=== PATIENT | female | born 1955 | race Caucasian/White ===

== ENCOUNTER 2023-02-03 07:03 | Outpatient (OUT) | payer MEDICARE, MEDICAID, SELFPAY ==
--- NOTE | 2023-02-03 08:15 | CA_ITS ---
Patient: ORVILLE JASSO Exam Date: 02/03/2023 : 1955 Gender:F Ordering : DUSTY MOODY Admission #: [id number] Family : Order #: [id number] CLICK HERE TO VIEW EXAM ECHOCARDIOGRAM REPORT PROCEDURE: CA ECHO DOPPLER COMPLETE INDICATIONS: Acute on chronic systolic heart failure, hypertension, diabetes, smoker, recent Covid COMPARISON: None. DESCRIPTION: COMPLETE ECHOCARDIOGRAM Real-time transthoracic echocardiography with 2D, M-mode, spectral and color flow Doppler performed. QUALITY: Technical quality was good. LEFT VENTRICLE: Normal chamber size. Thickened septal wall. LV EF: Global left ventricular systolic function is normal; visually estimated ejection fraction is 60 to 65%. No significant wall motion abnormalities. DIASTOLIC: Diastolic function is indeterminate. ATRIAL SEPTUM: Visually appears intact. LEFT ATRIUM: Severe dilatation. RIGHT ATRIUM: Moderate dilatation. RIGHT VENTRICLE: Appears enlarged. Systolic function is preserved. TRICUSPID VALVE: Normal mobility and thickness. No stenosis with trivial regurgitation. Doppler studies reveal severely (>60) elevated right sided pressures. RVSP 63 mmHg MITRAL VALVE: Mildly thickened with normal mobility. No evidence of mitral valve stenosis. There is no mitral annular calcification. Trivial mitral regurgitation. AORTIC VALVE: Normal trileaflet appearance. No visible sclerosis. Normal leaflet mobility. No evidence of aortic valve stenosis. No aortic regurgitation. AORTIC ROOT: Normal diameter and appearance. PULMONIC VALVE: Normal thickness and mobility. No stenosis. No regurgitation. PERICARDIUM: No evidence of pericardial effusion. IVC: Collapses with inspirations. IVC is dilated (2.2 cm). CONCLUSION: 1. Global left ventricular systolic function is normal; visually estimated ejection fraction is 60 to 65% 2. Diastolic function is indeterminate 3. Biatrial enlargement 4. Right ventricle appears enlarged with preserved systolic function 5. Severely elevated right ventricular systolic pressure; RVSP 63 mmHg 6. No significant valvular abnormalities Adult Echocardiography Procedure Report Left Ventricle LVEDD (3.7 - 5.6 cm): 4.11 cm LVESD (2.2 - 4.0 cm): 2.96 cm LVIVS thickness (0.6 - 1.2 cm): 1.35 cm LVPW thickness (0.5 - 1.0 cm): 1.06 cm e': 0.14 m/s E - e': 4.35 LVOT Max Gradient: 4.29 mm[Hg], 4.14 mm[Hg] LVOT Area (cm2): 1.03 m/s Peak Velocity (LVOT): 1.04 m/s, 1.02 m/s Mean Velocity (LVOT): 0.72 m/s LVOT Diameter 2.24 cm Left Atrium LA Volume Index (2D A2C): 56.40 ml/m2 Left Atrium Systolic Dimension: 2.71 cm Mitral Valve MV E to A Ratio: 0.77 Mitral Valve A-Wave Peak Velocity: 0.76 m/s Mitral Valve E-Wave Peak Velocity: 0.59 m/s Right Ventricle Aorta AO Root Diam: 3.45 cm Aortic Valve AoV Area (Peak Jack): 2.75 cm2, 2.77 cm2 AoV Area (VTI): 2.59 cm2, 2.64 cm2 Peak Velocity(Antegrade Flow): 1.47 m/s Peak Gradient(Antegrade Flow): 8.66 mm[Hg] Mean Velocity(Antegrade Flow): 1.01 m/s Mean Gradient(Antegrade Flow): 4.69 mm[Hg] Velocity Time Integral: 30.48 cm Tricuspid Valve Peak Velocity (Regurgitant Flow): 3.70 m/s Pulmonic Valve Peak Velocity: 1.07 m/s Peak Gradient: 5.86 mm[Hg], 3.48 mm[Hg] Right Atrium Right Atrium Systolic Pressure: 41.27 ml, 41.27 ml Dictated by: Jong Contreras M.D. on 02/03/2023 at 13:01 Approved by: Jong Contreras M.D. on 02/03/2023 at 13:06
== END 2023-02-03 07:04 | disposition home or self-care (01) ==
LOC: CARD 07:11
PROVIDERS: PCP Family Medicine; Visit Provider Internal Medicine Cardiovascular Disease
DX: I50.23 Acute on chronic systolic (congestive) heart failure (principal)
CPT/HCPCS: 93306

== ENCOUNTER 2023-04-14 19:30 | Emergency (ER) | payer MEDICARE, MEDICAID, SELFPAY ==
[2023-04-14] VITALS (34 sets, daily range): BP systolic 80–127; BP diastolic 48–79; PULSE 93–105; RESP 9–25; TEMP 36.5; O2SAT 94–100; BMI 15.3
--- OUTSIDE RECORDS SUMMARY | 2023-04-14 19:41 | XMS_ITS | CCD ---
Author Name Unknown Address [address] [place] [address] Organization [facility] Care Team Providers Care Treater Helper Name Role Phone Sandra Raya Primary Care Provider Charly Estevez Unavailable [facility], [facility] Unavailable Unavailable DOMINGUEZTRAVIS PETERSON Admitting Unavailable DOMINGUEZTRAVIS PETERSON Attending Unavailable DOMINGUEZ, TRAVIS Admitting Unavailable DOMINGUEZTRVAIS Attending Unavailable DOMINGUEZ, TRAVIS Admitting Unavailable DOMINGUEZTRAVIS Attending Unavailable NO, PHYSICIAN Primary Care Unavailable ASHIA AGUIRRE Attending Unavailable No, Physician Primary Care Provider Unavailabl e LESVIA SALCIDO Referring Unavaila ble NO, PHYSICIAN Primary Care Unavailable ASHIA BRONSON Consulting Unavailable ADILENE CALIX Admitting Unavailabl e BILLY MOODY Attending Unavailable SUSAN THURSTON Consulting Unavaila ble NO, PHYSICIAN Primary Care Unavailable LESVIA SALCIDO Attending Unavaila ble LESVIA SALCIDO Admitting Unavaila ble ZACH MONTELONGO Attending Unavailable NO, PHYSICIAN Primary Care Unavailable No, Physician Primary Care Provider Unavailabl e Unavailable Primary Care Provider Unavailabl e Maryjane Momin Primary Care Provider [phone] Rc Saravia Unavailable [phone] Maryjane Momin MD Primary Care Provider Rc Saravia Unavailable [phone] Karel Moralez II Unavailable [phone] DO Marcelo Ann Primary Care Provider [phone] YuvalDO Sharath ramesh Admit Provider MD Diamond Angeles Other Provider MD Kadeem Saenz Attending Provider MD Karel Moralez II Attending Provider [phone] CLIFTON, DR POPE Admitting Unavailable FANNING, DR POPE Attending Unavailable ALFREDA, STEVEN Attending Unavailable FURLONG, DR MARCELO Meyers Primary Care Unavailable ALFREDA, STEVEN Admitting Unavailable ZIEBER, DR RORY Huggins Consulting Unavailable PAY, DR CRUZ Consulting Unavailable ALFREDA, STEVEN Consulting Unavailable FREDERICK, NASREEN Consulting Unavailable FURLONG, DR MARCELO Meyers Primary Care Unavailable FANNING, DR POPE Admitting Unavailable FANNING, DR POPE Consulting Unavailable FANNING, DR POPE Attending Unavailable FURLONG, DR MARCELO Meyers Attending Unavailable FURLONG, DR MARCELO Meyers Primary Care Unavailable FURLONG, DR MARCELO Meyers Admitting Unavailable FANNING, DR POPE Attending Unavailable FANNING, DR POPE Admitting Unavailable MANJIT, DR Keo Huggins Attending Unavailable FURLONG, DR MARCELO Meyers Primary Care Unavailable MANJIT, DR Keo Huggins Admitting Unavailable FURLONG, DR MARCELO Meyers Attending Unavailable FURLONG, DR MARCELO Meyers Admitting Unavailable FURLONG, DR MARCELO Meyers Consulting Unavailable FURLONG, DR MARCELO Meyers Attending Unavailable FURLONG, DR MARCELO Meyers Primary Care Unavailable FURLONG, DR MARCELO Meyers Consulting Unavailable FURLONG, DR MARCELO Meyers Admitting Unavailable FURLONG, DR MARCELO Meyers Attending Unavailable FURLONG, DR MARCELO Meyers Primary Care Unavailable FURLONG, DR MARCELO Meyers Consulting Unavailable FURLONG, DR MARCELO Meyers Admitting Unavailable FURLONG, DR MARCELO Meyers Primary Care Unavailable FURLONG, DR MARCELO Meyers Consulting Unavailable FURLONG, DR MARCELO Meyers Admitting Unavailable FURLONG, DR MARCELO Meyers Attending Unavailable FURLONG, DR MARCELO Meyers Primary Care Unavailable FURLONG, DR MARCELO Meyers Consulting Unavailable FURLONG, DR MARCELO Meyers Attending Unavailable FURLONG, DR MARCELO Meyers Admitting Unavailable FURLONG, DR MARCELO Meyers Attending Unavailable FURLONG, DR MARCELO Meyres Admitting Unavailable FURLONG, DR MARCELO Meyers Consulting Unavailable SHERRI LEA Attending Unavailable FURLONG, DR MARCELO Meyers Primary Care Unavailable SAMSA, SHERRI Admitting Unavailable HOANG, DR OLGA Brown Consulting Unavailable ZIEBER, DR RORY Huggins Consulting Unavailable SAMSA, SHERRI Consulting Unavailable ROSS, GIL GARCIA Consulting Unavailable DANA, CHARISSE Consulting Unavailable FANNING, DR POPE Admitting Unavailable FANNING, DR POPE Consulting Unavailable FANNING, DR POPE Attending Unavailable REQUEST, DR DEBRA LISTED Primary Care Unavaila ble FURLONG, DR MARCELO Meyers Primary Care Unavailable FANNING, DR POPE Consulting Unavailable FANNING, DR POPE Attending Unavailable FANNING, DR POPE Admitting Unavailable FURLONG, DR MARCELO Meyers Primary Care Unavailable FANNING, DR POPE Attending Unavailable FANNING, DR POPE Admitting Unavailable Clifton, MD Pope Attending Provider Unavailable MD Rc Saravia Referring Provider [phone] Maryjane Momin MD Primary Care Provider [phone] MARYJANE MOMIN Primary Care Unavailable WILBER RILEY Admitting Unavailable WILBER RILEY Attending Unavailable Arturclarisse, Marcelo Primary Care Provider [phone] MD Rc Saravia Referring Provider Dixon HEATON, DO Xander Laird Attending Provider Karel Moralez II Admitting Unavailabl e Kirt HEATON, Karel Ramesh Attending Unavailabl e Furlong, Marcelo Primary Care Unavailable Karel Moralez II Admitting Unavailabl e Kirt HEATON, Karel Ramesh Attending Unavailabl e Furlong, Marcelo Primary Care Unavailable Xander Metcalf II Admitting Unavaila ble Dixon HEATON, Xander Laird Attending Unavaila Rc Mary Referring Unavailabl e Furlong, Marcelo Primary Care Unavailable Karel Moralez II Admitting Unavailabl e Atlantic II, Karel Ramesh Attending Unavailabl e Furlong, Marcelo Primary Care Unavailable DUSTY MOODY Attending Unavailable SHRUTHI AQUINO Attending Unavailable Unavailable Unavailable Unavailable Allergies Allergy Classification Reported Allergen(s) Allergy Type Date of Onset Reaction(s) Facility (20 sources) buPROPion; Translations: [Unknown] Drug Allergy 9 Other (See Comments) [facility] (1 source) buPROPion Drug Allergy 1 [facility] (1 source) buPROPion Drug Allergy 2 [facility] Medications Current Medications Medication Drug Class(es) Dates Sig (Normalized) Sig (Original) acetaminophen 325 mg oral tablet (20 sources) Start: 08-08-2022 take 325 mg by mouth once Acetaminophen Active 325 MG PO Once August 08, 2022 12:00am Start: 07-10-2022 acetaminophen (TYLENOL) tablet 650 mg Start: 07-10-2022 acetaminophen (TYLENOL) tablet 650 mg Start: 10-15-2020 End: 01-14-2022 take 650 mg by mouth every four hours Acetaminophen Discontinued 650 MG PO Q4H October 15, 2020 12:00am January 14, 2022 11:03am Start: 07-04-2020 acetaminophen (TYLENOL) tablet 650 mg Start: 07-04-2020 acetaminophen (TYLENOL) tablet 1,000 mg Start: 10-18-2019 End: 10-26-2019 take 1 tablet by mouth every six hours as needed 650 mg, Oral, Every 6 hours PRN, mild pain, fever 100.4 F or greater, headaches, Starting Mon10/18/19 at 1331 take 2 tablets by mo coh every four hours as needed for pain acetaminophen (TYLENOL) 325 MG tablet Take 2 tablets by mouth every 4 hours as needed for Pain 0 Active take 1 tablet by jesica every four hours Tylenol 325 MG 1 tablet as needed Orally every 4 hrs Active Tylenol Active acetaminophen 325 mg / HYDROcodone bitartrate 5 mg oral tablet (4 sources) Opioid Agonist Start: 08-08-2022 take 1 tablet by mouth every six hours Hydrocodone-Acetaminophen Active 1 TAB PO Q6H August 08, 2022 12:00am Start: 07-10-2022 End: 07-16-2022 HYDROcodone-acetaminophen (N ORCO) 5-325 MG per tablet Indications: Closed fracture of left tibial plateau, initial encounter Take 2 tablets by mouth every 6 hours as needed for Pain for up to 5 days. Max Daily Amount: 8 tablets 40 tablet 0 07/11/2022 07/16/2022 Active Start: 07-10-2022 End: 07-10-2022 HYDROcodone-acetaminophen (N ORCO) 5-325 MG per tablet 1 tablet [id number] 200 actuat albuterol 0.09 mg/actuat metered dose inhaler (20 sources) beta2-Adrenergic Agonist Start: 06-04-2021 take 1 puff(s) by inhalation every four to six hours Albuterol Sulfate Active 2 PUFF INHALATION EVERY 4-6 HOURS June 04, 2021 1:00am Start: 10-26-2019 End: 11-25-2019 take 2.5 mg by inhalation every six hours as needed albuterol (PROVENTIL) 2.5 mg /3 mL (0.083 %) nebulizer solution Take 3 mL (2.5 mg total) by nebulization every 6 (six) hours as needed for wheezing . 75 mL 12 10/26/2019 Active Start: 10-18-2019 End: 10-26-2019 take 2.5 mg by inhalation every six hours as needed albuterol (PROVENTIL) 2.5 mg /3 mL (0.083 %) nebulizer solution 2.5 mg Start: 07-28-2015 take 2 puff(s) by mo uth every six hours as needed for wheezing VENTOLIN HFA 108 (90 BASE) MCG/ACT inhaler INHALE TWO PUFFS BY MOUTH EVERY 6 HOURS NEEDED FOR WHEEZING 1 each 3 07/28/2015 Active Albuterol Sulfate 108 (90 Base) MCG/ACT (3 sources) take 1 puff(s) by inhalation every four hours as needed Albuterol Sulfate 108 (90 Base) MCG/ACT 1 puff as needed Inhalation every 4 hrs Active alendronic acid 70 mg oral tablet (5 sources) Bisphosphonate Start: 01-14-2022 take 70 mg by mouth every week Alendronate Active 70 MG PO every week January 14, 2022 12:00am take 1 tablet by mouth once isai y Alendronate Sodium 70 MG 1 tablet 30 minutes before the first food, beverage or medicine of the day with plain water Orally Active B Complex - (3 sources) B Complex - as directed Orally Active b complex vitamins capsule (6 sources) take 1 capsule by mouth once daily b complex vitamins capsule Take 1 capsule by mouth daily 0 Active benzonatate 100 mg oral capsule (8 sources) Non-narcotic Antitussive Start: 2 take 100 mg by mouth three times daily Benzonatate Active 100 MG PO Three times daily June 08, 2021 1:00am Tessalon Active calcium carbonate 500 mg chewable tablet (9 sources) Start: 08-08-2022 take 1 tablet by mouth four times daily Calcium Carbonate (Tums) 200 mg calcium (500 mg) Tablet,Chewable Active 200 MG PO Four times daily August 08, 2022 12:00am Start: 06-08-2021 End: 01-14-2022 Calcium Carbonate Discontinu ed 0 .ROUTE .COMPLEX June 08, 2021 1:00am January 14, 2022 11:03am 2 tablets every 6 hourse take 1 tablet by jesica th every twenty-four hours Tums 500 MG 1 tablet Orally Once a day Active cefdinir 300 mg oral capsule (4 sources) Cephalosporin Antibacterial Start: 04-01-2019 End: 04-11-2019 take 1 capsule by mouth twice daily cefdinir (OMNICEF) 300 MG capsule Take 1 capsule by mouth two times a day for 10 days. 20 capsule 0 04/01/2019 04/11/2019 Active cefTRIAXone (ROCEPHIN) 1,000 mg in sterile water 10 mL IV syringe (1 source) Start: 07-04-2020 take 100 mg intravenous route every twenty-four hours 1,000 mg, Intravenous, EVERY 24 HOURS, First dose on 07/04/20 at 2230, Until Discontinued Administer as slow IV Push over 5 mins Re constitute 1 g vials with 9.6 mL of designated diluent to produce a 100 mg/mL solution. cefTRIAXone (ROCEPHIN) infusion (1 source) Start: 07-07-2020 End: 07-14-2020 take 1000 mg intravenous route every twenty-four hours cefTRIAXone (ROCEPHIN) infusion Indications: Acute cystitis without hematuria Infuse 1,000 mg intravenously every 24 hours for 7 days Compound per protocol Flush IV per protocol 7 g 0 07/07/2020 07/14/2020 Active celecoxib 100 mg oral capsule (5 sources) Nonsteroidal Anti-inflammatory Drug Start: 01-14-2022 take 1 capsule by mouth every twelve hours Celecoxib (Celebrex) 100 mg Capsule Active 100 MG PO Q12H January 14, 2022 12:00am take 1 capsule by mo uth every twenty-four hours CeleBREX 100 MG 1 capsule with food Orally Once a day Active cranberry preparation 500 mg oral capsule (12 sources) Non-Standardized Food Allergenic Extract, Non-Standardized Plant Allergenic Extract Start: 09-10-2018 take 1 capsule by mouth twice daily Cranberry (CRANBERRY CONCENTRATE) 500 MG CAPS capsule Indications: Recurrent UTI Take 1 capsule by mouth two times a day. 100 each 6 09/10/2018 Active diclofenac sodium 0.01 mg/mg topical gel (8 sources) Nonsteroidal Anti-inflammatory Drug Start: 06-08-2021 apply 2 g topically four times daily Diclofenac Sodium Active 2 GM TOPICAL Four times daily June 08, 2021 1:00am Diclofenac Sodiu m 1 % as directed Externally Active docusate sodium 50 mg / sennosides, alf 8.6 mg oral tablet (2 sources) Start: 10-18-2019 End: 11-25-2019 take 1 tablet by mouth twice daily senna-docusate (SENNA-S) 8.6-50 mg Take 1 (one) tablet by mouth 2 (two) times a day . 60 tablet 0 10/26/2019 11/25/2019 Active Dulaglutide (Trulicity) 4.5 mg/0.5 mL Pen Injector (6 sources) Start: 08-08-2022 Dulaglutide (T rulicity) 4.5 mg/0.5 mL Pen Injector Active 4.5 MG SUBCUT every week August 08, 2022 12:00am Start: 10-25-2021 Dulaglutide (T rulicity) 4.5 mg/0.5 mL Pen Injector Active 4.5 MG SUBCUT every week October 25, 2021 12:00am tuesdays empagliflozin 10 mg oral tablet (6 sources) Sodium-Glucose Cotransporter 2 Inhibitor Start: 01-14-2022 take 1 tablet by mouth once daily Empagliflozin (Jardiance) 10 mg Tablet Active 10 MG PO Daily January 14, 2022 12:00am Empagliflozin (J ARDIANCE PO) Take by mouth 0 Active 0.3 ml enoxaparin sodium 100 mg/ml prefilled syringe (2 sources) Low Molecular Weight Heparin Start: 07-10-2022 End: 07-26-2022 enoxaparin Sodium (LOVENOX) 30 MG/0.3ML injection Inject 0.3 mLs into the skin daily for 14 days 14 each 0 07/12/2022 07/26/2022 Active estrogens, conjugated (alf) 0.625 mg/ml vaginal cream (12 sources) Estrogen Start: 09-10-2018 conjugated estrogens (PREMARIN) vaginal cream Place 0.5 g vaginally twice a week. 42.5 g 2 09/10/2018 Active FreeStyle Abad 14 Day Conway - (3 sources) FreeStyle Abad 14 Day Conway - as directed Active glucagon (rdna) 1 mg injection (2 sources) Antihypoglycemic Agent Start: 07-10-2022 glucago n (rDNA) injection 1 mg Start: 07-06-2020 glucagon (rDNA ) injection 1 mg Glucagon Emergency (9 sources) Glucagon Emergen cy Active Glucagon Hcl (Glucagon (Hcl) Emergency Kit) 1 mg Recon Soln (5 sources) Start: 12-29-2020 Glucagon Hcl ( Glucagon (Hcl) Emergency Kit) 1 mg Recon Soln Active 1 MG SUBCUT Q20M December 29, 2020 12:00am 1000 ml glucose 100 mg/ml injection (20 sources) Start: 07-10-2022 dextrose 10 % infusion Start: 07-10-2022 dextrose bolus 10% 125 mL Start: 07-10-2022 glucose chewab le tablet 16 g Start: 12-29-2020 Dextrose (Gluc ose Gel) 40 % Gel Active 10 GM PO Q15M December 29, 2020 12:00am Start: 07-06-2020 glucose (GLUTO SE) 40 % oral gel 15 g Start: 07-06-2020 dextrose 50 % IV solution Start: 07-06-2020 dextrose 5 % s olution Glucose Active ibuprofen 600 mg oral tablet (10 sources) Nonsteroidal Anti-inflammatory Drug Start: 01-21-2019 take 1 tablet by mouth three times daily at mealtime ibuprofen (ADVIL,MOTRIN) 600 MG tablet Take 1 tablet by mouth 3 times daily (with meals). 30 tablet 1 01/21/2019 Active ibuprofen/diphe nhydramine cit (ADVIL PM ORAL) (3 sources) ibuprofen/diphen hyd ramine cit (ADVIL PM ORAL) Take by mouth . 0 Active ibuprofen/diphen hydramine cit (ADVIL PM ORAL) Take by mouth . 0 Suspended 3 ml insulin glargine 100 unt/ml pen injector (20 sources) Insulin Analog Start: 08-08-2022 Insulin Glargi ne (Lantus Solostar U-100 Insulin) 100 unit/mL (3 mL) Insulin Pen Active 15 UNIT SUBCUT Twice daily August 08, 2022 12:00am Start: 07-10-2022 inject 15 [IU] by natarajan bcutaneous injection once daily 15 Units, SubCUTAneous, NIGHTLY, First dose on 07/10/22 at 2100, Until Discontinued Start: 12-29-2020 End: 08-08-2022 inject 15 [IU] by subcutaneous injection once daily in the morning Insulin Glargine Discontinued 15 UNIT SUBCUT Every morning December 29, 2020 12:00am August 08, 2022 2:43pm Start: 12-29-2020 inject 15 [IU] by natarajan bcutaneous injection once daily in the morning Insulin Glargine Active 15 UNIT SUBCUT Every morning December 29, 2020 12:00am Start: 10-15-2020 End: 12-29-2020 Insulin Glargine (Basaglar K wikpen U-100 Insulin) 100 unit/mL (3 mL) Insulin Pen Discontinued 15 UNIT SUBCUT Every morning October 15, 2020 12:00am December 29, 2020 10:40am Start: 07-04-2020 inject 26 [IU] by natarajan bcutaneous injection once daily 26 Units, Subcutaneous, NIGHTLY, First dose on 07/04/20 at 2230 Start: 03-03-2020 inject 18 [IU] by natarajan bcutaneous injection once daily Insulin Glargine,Hum.Rec.Anlog Active 18 UNIT Daily March 03, 2020 11:26am inject 18 units SQ daily. Start: 03-03-2020 Insulin Glargi ne Active 20 UNIT SOLUTION Daily March 03, 2020 10:50am Start: 01-24-2020 End: 03-03-2020 inject 12 [IU] by subcutaneous injection once daily Insulin Glargine,Hum.Rec.Anlog Discontinued 12 UNIT Daily January 24, 2020 2:17pm March 03, 2020 11:28am inject 12 units SQ daily. Start: 01-23-2020 End: 01-24-2020 take 20 [IU] rectal route once daily in the evening Insulin Glargine,Hum.Rec.Anlog Discontinued 20 UNIT Every evening January 23, 2020 10:41am January 24, 2020 2:21pm Start: 01-09-2020 End: 01-23-2020 take 40 [IU] rectal route twice daily Insulin Glargine,Hum.Rec.Anlog Discontinued 40 UNIT 2 times per day January 09, 2020 10:15am January 23, 2020 10:47am Start: 10-26-2019 End: 10-26-2019 insulin glargine (LANTUS) injection 25 Units Start: 10-26-2019 End: 11-25-2019 inject 25 [IU] by subcutaneous injection once daily insulin glargine (LANTUS) 100 unit/mL injection Inject 25 (twenty five) Units under the skin nightly . 7.5 mL 0 10/26/2019 Active Start: 10-24-2019 End: 10-26-2019 insulin glargine (LANTUS) injection 23 Units Start: 10-19-2019 End: 10-22-2019 insulin glargine (LANTUS) injection 20 Units Start: 10-18-2019 End: 10-19-2019 insulin glargine (LANTUS) injection 10 Units insulin glargine (LANTUS) 100 UNIT/ML injection vial Inject 15 Units into the skin nightly 0 Active Lantus 100 UNIT/ ML as directed Subcutaneous Active Lantus Active insulin glargine (LANTUS) 100 UNIT/ML injection vial Inject 26 Units into the skin nightly 0 Active insulin lispro 100 unt/ml injectable solution (20 sources) Insulin Analog Start: 07-10-2022 insulin lispro (HUMALOG) injection vial 0-8 Units Start: 10-15-2020 Insulin Lispro (Humalog Kwikpen Insulin) 100 unit/mL Insulin Pen Active 0 UNIT SUBCUT Before meals and at bedtime October 15, 2020 12:00am per scale Start: 07-05-2020 insulin lispro (HUMALOG) injection vial 0-3 Units Start: 01-24-2020 End: 03-03-2020 Insulin Lispro Active 0 .TID BEFORE meals March 03, 2020 11:27am BG 400 12 Start: 01-23-2020 End: 01-24-2020 Insulin Lispro Discontinued 0 3 times per day January 23, 2020 10:42am January 24, 2020 2:21pm Inject per sliding scale subcut 3 times per day; Start: 01-09-2020 End: 01-23-2020 Insulin Lispro Discontinued 10 UNIT 3 times per day January 09, 2020 10:13am January 23, 2020 10:39am Inject 10 units + Sliding scale. 150-200; 2u, 201-250; 4u, 251-300; 6u, 301-350; 8u Start: 10-24-2019 insulin lispro (HumaLOG) injection 6 Units Start: 10-23-2019 insulin lispro (HumaLOG) injection 10 Units Start: 10-18-2019 End: 11-25-2019 insulin lispro (HumaLOG) 100 unit/mL injection Inject 0 (zero) Units to 30 (thirty) Units under the skin 3 (three) times a day before meals . 27 mL 0 10/26/2019 Active HumaLOG KwikPen 100 UNIT/ML as directed Subcutaneous Active HumaLOG Active Insulin Lispro ( HUMALOG KWIKPEN SC) Inject into the skin PER SLIDING SCALE 151-200=0 UNITS 201-250=10 UNITS 251-300=12 UNITS 301-400=14 UNITS ABOVE 400 CALL MD 0 Active Insulin Lispro (Humalog Kwik pen Insulin) 100 unit/mL Insulin Pen (2 sources) Start: 08-08-2022 Insulin Lispro (Humalog Kwikpen Insulin) 100 unit/mL Insulin Pen Active 1 sliding scale dose SUBCUT Use as Directed August 08, 2022 12:00am Start: 10-15-2020 End: 08-08-2022 Insulin Lispro (Humalog Kwik pen Insulin) 100 unit/mL Insulin Pen Discontinued 0 UNIT SUBCUT Before meals and at bedtime October 15, 2020 12:00am August 08, 2022 2:43pm per scale lactulose 667 mg/ml oral solution (20 sources) Osmotic Laxative Start: 10-25-2021 take 20 g by mouth once daily Lactulose Active 20 GM PO Daily October 25, 2021 12:00am Start: 10-15-2020 End: 10-25-2021 Lactulose Active 20 GM PO Th ree times daily October 25, 2021 12:00am maintain 4-5 stools a day Start: 07-07-2020 20 g, Oral, 2 TIMES DAILY, First dose on 07/10/22 at 2100, Until Discontinued Start: 07-04-2020 End: 07-04-2020 lactulose (CHRONULAC) 10 GM/ 15ML solution 20 g take 1 dose by mouth once daily as needed Lactulose 20 GM 1 packet as needed Orally Once a day Active Lactulose Active lidocaine 0.04 mg/mg medicated patch (11 sources) Antiarrhythmic, Amide Local Anesthetic Start: 06-04-2021 apply 1 dose topically twice daily Lidocaine Active 1 PATCH TOPICAL Twice daily June 04, 2021 1:00am 12 hours on 12 hours off Lidocaine 4 % as directed Externally Active Lidocaine Active loperamide hydrochloride 2 mg oral tablet (6 sources) Opioid Agonist Start: 08-08-2022 Loperamide (Im odium A-D) 1 mg/7.5 mL Liquid Active 2 MG PO EVERY 2-4 HOURS August 08, 2022 12:00am administer after each loose stool until symptoms controlled; do not exceed 16 mg per 24 hrs Start: 10-15-2020 End: 12-29-2020 take 1 capsule by mouth twice daily Loperamide (Imodium A-D) 2 mg Capsule Discontinued 2 MG PO Twice daily October 15, 2020 12:00am December 29, 2020 10:40am magnesium hydroxide 80 mg/ml oral suspension (1 source) Start: 07-04-2020 take 30 mL by mouth once daily as needed for constipation 30 mL, Oral, DAILY PRN, Constipation, Starting 07/04/20 at 2207 First line therapy for constipation. magnesium oxide 400 mg oral tablet (9 sources) Start: 11-01-2021 take 400 mg by mouth once daily in the morning Magnesium Oxide Active 400 MG PO Every morning 0 November 01, 2021 12:00am menthol 2.7 mg oral lozenge (17 sources) Start: 08-08-2022 Menthol (Cough Drops) 2.7 mg Lozenge Active 5.4 MG MUCOUS MEM EVERY 2-4 HOURS August 08, 2022 12:00am Start: 10-25-2021 Menthol (Biofr eeze (Menthol)) 4 % Gel Active 1 APPLIC TOPICAL Three times daily October 25, 2021 12:00am Start: 10-15-2020 End: 01-14-2022 Menthol (Biofreeze (Menthol) ) 4 % Gel Discontinued 1 APPLIC TOPICAL every 6 to 8 hours October 15, 2020 12:00am January 14, 2022 10:51am Biofreeze Active metFORMIN hydrochloride 500 mg oral tablet (13 sources) Biguanide Start: 10-15-2020 take 500 mg by mouth once daily Metformin Active 500 MG PO Daily October 15, 2020 12:00am metFORMIN HCl Ac tive 24 hr mirabegron 50 mg extended release oral tablet (12 sources) beta3-Adrenergic Agonist Start: 10-10-2018 take 1 tablet by mouth once daily Mirabegron ER (MYRBETRIQ ER) 50 MG TB24 Ext Rel tablet Take 1 tablet by mouth daily. 30 tablet 0 10/10/2018 Active mirtazapine 15 mg oral tablet (9 sources) Start: 06-04-2021 take 1 tablet by mouth once daily at bedtime Mirtazapine (Remeron) 15 mg Tablet Active 15 MG PO Daily at bedtime June 04, 2021 1:00am take 1 tablet by jesica th every twenty-four hours Remeron 30 MG 1 tablet at bedtime Orally Once a day Active Multiple Vitamin (MULTIVITAMIN ADULT PO) (6 sources) take 1 tablet by mouth once daily Multiple Vitamin (MULTIVITAMIN ADULT PO) Take 1 tablet by mouth daily 0 Active Multiple Vitamins-Minerals (QC MULTI-DANNI 50 & OVER PO) (12 sources) take 1 tablet by mouth once daily Multiple Vitamins-Minerals (QC MULTI-DANNI 50 & OVER PO) Take 1 tablet by mouth daily. 0 Active naproxen 500 mg oral tablet (9 sources) Nonsteroidal Anti-inflammatory Drug Start: 02-14-20 19 take 1 tablet by mouth twice daily as needed for pain naproxen (NAPROSYN) 500 MG tablet Indications: Closed nondisplaced fracture of neck of fourth metacarpal bone of left hand, initial encounter Take 1 tablet by mouth 2 times daily as needed for Pain. 30 tablet 0 02/13/2019 Active ondansetron (ZOFRAN-ODT) disintegrating tablet 4 mg (1 source) Start: 07-11-19 23 ondansetron (ZOFRAN-ODT) disintegrating tablet 4 mg 24 hr oxybutynin chloride 5 mg extended release oral tablet (12 sources) Cholinergic Muscarinic Antagonist Start: 01-08-20 19 End: 04-02-20 19 take 1 tablet by mouth once daily oxybutynin ER (DITROPAN-XL) 5 MG 24 hr tablet Take 1 tablet by mouth daily. 30 tablet 6 04/02/2019 Active Polyethylene Glycols (3 sources) Polyethylene Gly col Active Potassium (6 sources) Potassium Not-[place] Potassium Active potassium chloride 20 meq extended release oral tablet (13 sources) Start: 10-15-2020 take 20 mEq by mouth once daily Potassium Chloride Active 20 MEQ PO Daily October 15, 2020 12:00am Start: 07-07-2020 potassium chlo ride (KLOR-CON M) extended release tablet 20 mEq Start: 07-05-2020 End: 07-07-2020 20 mEq, Oral, DAILY, First d ose on 07/05/20 at 0900 Start: 10-18-2019 End: 10-19-2019 potassium chloride 20 mEq in 100 mL IVPB End: 07-10-2022 take 20 mEq by mouth once daily potassium chloride (KLOR-CON) 20 MEQ packet Take 20 mEq by mouth daily 0 07/10/2022 Discontinued (LIST CLEANUP) Promethazine (1 source) Phenothiazine Start: 07-04-2020 promethazine (PHENERGAN) tablet 12.5 mg rifAXIMin 550 mg oral tablet (19 sources) Rifamycin Antibacterial Start: 10-15-2020 End: 08-08-2022 take 550 mg by mouth twice daily Rifaximin Active 550 MG PO Twice daily August 08, 2022 12:00am End: 07-11-2022 rifAXIMin (XIFAXAN) 200 MG t ablet Take 550 mg by mouth in the morning and at bedtime 0 07/11/2022 Discontinued (DOSE ADJUSTMENT) spironolactone 25 mg oral tablet (20 sources) Aldosterone Antagonist Start: 10-15-2020 take 25 mg by mouth once daily Spironolactone Active 25 MG PO Daily October 15, 2020 12:00am Start: 07-05-2020 take 25 mg by mouth once daily 25 mg, Oral, DAILY, First dose on 07/05/20 at 0900 Start: 10-27-2019 End: 11-26-2019 take 1 tablet by mouth once daily spironolactone (ALDACTONE) 100 MG tablet Take 1 (one) tablet (100 mg total) by mouth daily Start: 10/27/19. 30 tablet 0 10/27/2019 Active Start: 10-20-2019 End: 10-26-2019 spironolactone (ALDACTONE) t ablet 100 mg Start: 10-18-2019 End: 07-10-2022 take 25 mg by mouth once daily Spironolactone Active 2 5 MG ORAL Daily January 09, 2020 10:21am Spironolactone N ot-Taking Spironolactone A ctive sulfamethoxazole 800 mg / trimethoprim 160 mg oral tablet (1 source) Dihydrofolate Reductase Inhibitor Antibacterial, Sulfonamide Antimicrobial Start: 04-18-2019 End: 04-28-2019 take 1 tablet by mouth twice daily sulfamethoxazole-trimethoprim (BACTRIM DS) 800-160 MG per tablet Take 1 tablet by mouth two times a day for 10 days. 20 tablet 0 04/18/2019 04/28/2019 Active traMADol hydrochloride 50 mg oral tablet (11 sources) Opioid Agonist Start: 01-07-2019 take 1 tablet by mouth every six hours as needed for pain traMADol (ULTRAM) 50 MG tablet Indications: Acute right-sided low back pain with right-sided sciatica Take 1 tablet by mouth every 6 hours as needed for Pain. 30 tablet 1 01/07/2019 Active traZODone (6 sources) Serotonin Reuptake Inhibitor traZODone HCl Ac tive Vitamin B Complex (19 sources) Start: 10-25-2021 take 1 capsule by mo uth once daily Vitamin B Complex Active 1 CAP PO Daily October 25, 2021 12:00am Start: 10-15-2020 End: 10-25-2021 take 1 tablet by mouth once daily Vitamin B Complex Discontinued 1 TAB PO Daily October 15, 2020 12:00am October 25, 2021 12:04pm Start: 01-09-2020 take 1 tablet by jesica th once daily Vitamin B Complex Active 1 TAB ORAL Daily January 09, 2020 10:08am Vitamin B Comple x Active Completed/Discontinued Medications Medication Drug Class(es) Dates Sig (Normalized) Sig (Original) albuterol 0.833 mg/ml / ipratropium bromide 0.167 mg/ml inhalation solution (20 sources) Anticholinergic, beta2-Adrenergic Agonist Start: 06-04-2021 End: 06-08-2021 take 1 mL by inhalation every six hours Ipratropium-Albuter ol Discontinued 3 ML INHALATION Q6H June 08, 2021 1:00am June 08, 2021 11:23am Start: 05-06-2015 albuterol 2.5m g-ipratropium 0.5mg/3ml (DUONEB) 0.5-2.5 (3) MG/3ML nebulizer soln INHALE ONE VIAL VIA NEBULIZER BY MOUTH EVERY 6 HOURS WHILE AWAKE 100 ampule 9 05/06/2015 Active aluminum hydroxide 40 mg/ml / magnesium hydroxide 40 mg/ml / simethicone 4 mg/ml oral suspension (1 source) Start: 10-18-2019 End: 10-26-2019 take 30 mL by mouth every four hours as needed 30 mL, Oral, Every 4 hours PRN, indigestion, Starting Mon10/18/19 at 1331 amoxicillin 500 mg oral capsule (6 sources) Penicillin-class Antibacterial Start: 01-23-2019 End: 04-18-2019 take 1 capsule by mouth three times daily amoxicillin (AMOXIL) 500 MG capsule Take 1 capsule by mouth 3 times daily. 21 capsule 0 01/23/2019 04/18/2019 Discontinued (No Longer Needed) ascorbic acid 500 mg oral tablet (5 sources) Vitamin C Start: 11-01-2021 End: 01-14-2022 take 1 tablet by mouth twice daily at mealtime Ascorbic Acid (Vitamin C) (Vitamin C) 500 mg Tablet Discontinued 500 MG PO Twice daily with meals 0 November 01, 2021 12:00am January 14, 2022 11:03am cefTRIAXone 2000 mg injection (1 source) Cephalosporin Antibacterial Start: 10-19-2019 End: 10-25-2019 take 2000 mg intravenous route every twenty-four hours cefTRIAXone (ROCEPHIN) IVPB 2 g (premix) cholecalciferol 0.125 mg oral capsule (20 sources) Vitamin D Start: 07-10-2022 take 5000 [IU] by mouth once daily 5,000 Units, Oral, DAILY, First dose on 07/10/22 at 1915, Until Discontinued Start: 10-15-2020 take 25 ug by mouth once daily Cholecalciferol (Vitamin D3) Active 25 MCG PO Daily October 15, 2020 12:00am Start: 01-09-2020 take 25 ug by mouth once daily Cholecalciferol (Vitamin D3) Active 25 MCG ORAL Daily January 09, 2020 10:21am Start: 01-09-2020 take 1250 ug by mout h five times daily Cholecalciferol (Vitamin D3) Active 1250 MCG ORAL 5 times per day January 09, 2020 10:09am vitamin D (MARTINEZ CALCIFEROL) 125 MCG (5000 UT) CAPS capsule Take 1,000 Units by mouth daily 0 Active take 1 capsule by mo uth once daily Cholecalciferol 25 MCG (1000 UT) 1 capsule Orally Once a day Active Cholecalciferol Active Cholecalciferol (VITAMIN D) 2000 UNITS TABS Take by mouth. 0 Active docusate sodium 100 mg oral capsule (5 sources) Start: 01-09-2020 End: 03-03-2020 take 100 mg by mouth twice daily Docusate Sodium Discontinued 100 MG ORAL 2 times per day January 09, 2020 10:08am March 03, 2020 10:42am 0.5 ml dulaglutide 3 mg/ml auto-injector (11 sources) GLP-1 Receptor Agonist Start: 10-15-2020 End: 10-25-2021 Dulaglutide (Trulicity) 1.5 mg/0.5 mL Pen Injector Discontinued 1.5 MG SUBCUT every week October 15, 2020 12:00am October 25, 2021 12:04pm Trulicity 4.5 MG /0.5ML as directed Subcutaneous Active Trulicity Active Ergocalciferol (20 sources) Provitamin D2 Compound Start: 10-15-2020 End: 08-08-2022 take 46468 [IU] by mouth every week Ergocalciferol (Vitamin D2) Discontinued 32596 UNIT PO Q7D October 15, 2020 12:00am August 08, 2022 2:43pm Start: 10-15-2020 take 36888 [IU] by m outh every week Ergocalciferol (Vitamin D2) Active 59583 UNIT PO Q7D October 15, 2020 12:00am Start: 07-06-2020 take 28489 [IU] by m outh every week 50,000 Units, Oral, WEEKLY, First dose on Mon07/06/20 at 0900 Start: 09-03-2019 End: 07-10-2022 ergocalciferol (ERGOCALCIFER OL) 1,250 mcg (50,000 unit) capsule Take 50,000 Units by mouth Every 5 days . 0 09/03/2019 Active Start: 09-03-2019 take 1 capsule by mo uth every week Vitamin D, Ergocalciferol, 1.25 MG (02858 UT) CAPS Take 1 capsule by mouth once a week. 30 capsule 3 09/03/2019 Active Ergocalciferol 1 .25 MG (30554 UT) 1 capsule Orally Active Ergocalciferol A ctive furosemide 20 mg oral tablet (20 sources) Loop Diuretic Start: 10-15-2020 End: 08-08-2022 take 20 mg by mouth once daily Furosemide Discontinued 20 MG PO Daily October 15, 2020 12:00am August 08, 2022 2:43pm Start: 01-09-2020 take 20 mg by mouth once daily Furosemide Active 20 MG ORAL Daily January 09, 2020 10:11am Start: 10-26-2019 End: 07-10-2022 take 40 mg by mouth once daily 40 mg, Oral, DAILY, Fir st dose on 07/05/20 at 0900 Start: 10-18-2019 End: 10-26-2019 furosemide (LASIX) injection 40 mg Lasix Active heparin sodium, porcine 5000 unt/ml injectable solution (5 sources) Unfractionated Heparin, Anti-coagulant Start: 11-01-2021 End: 01-14-2022 inject 5000 [IU] by subcutaneous injection every twelve hours Heparin (Porcine) Discontinued 5000 UNIT SUBCUT Every 12 hours 0 November 01, 2021 12:00am January 14, 2022 11:02am lisinopril 2.5 mg oral tablet (5 sources) Angiotensin Converting Enzyme Inhibitor Start: 01-14-2022 End: 08-08-2022 take 2.5 mg by mouth once daily Lisinopril Discontinued 2.5 MG PO Daily January 14, 2022 12:00am August 08, 2022 2:44pm 50 ml magnesium sulfate 40 mg/ml injection (1 source) Start: 10-21-2019 End: 10-21-2019 magnesium sulfate 2 g in sterile water (SW) 50 mL IVPB melatonin 3 mg oral tablet (20 sources) Start: 07-10-2022 take 3 mg by mouth once daily 3 mg, Oral, NIGHTLY, First dose on 07/10/22 at 2100, Until Discontinued Start: 10-15-2020 take 5 mg by mouth at bedtime Melatonin Active 5 MG PO Bedtime October 15, 2020 12:00am Start: 07-04-2020 take 3 mg by mouth once daily 3 mg, Oral, NIGHTLY, First dose on 07/04/20 at 2230 Start: 01-09-2020 take 3 mg by mouth at bedtime Melatonin Active 3 MG ORAL Bedtime January 09, 2020 10:15am Start: 10-18-2019 End: 11-25-2019 take 1 tablet by mouth once daily melatonin 3 mg Tab T betty 1 (one) tablet (3 mg total) by mouth nightly . 30 tablet 0 10/26/2019 Active take 1 tablet by jesica th once daily in the evening Melatonin 5 MG 1 tablet in the evening Orally Once a day Active Melatonin Active 1 ml morphine sulfate 4 mg/ml cartridge (1 source) Opioid Agonist Start: 07-10-2022 End: 07-10-2022 morphine injection 4 mg multivitamin 1 tablet (2 sources) Start: 07-10-2022 take 1 tablet by mouth once daily 1 tablet, Oral, DAILY, First dose on 07/10/22 at 1915, Until Discontinued Start: 07-05-2020 take 1 tablet by mouth once da artie 1 tablet, Oral, DAILY, First dose on 07/05/20 at 0900 Multivitamin preparation (15 sources) Start: 10-15-2020 End: 08-08-2022 take 1 tablet by mouth once daily Multivitamin Discontinued 1 TAB PO Daily October 15, 2020 12:00am August 08, 2022 2:44pm Start: 10-15-2020 take 1 tablet by jesica th once daily Multivitamin Active 1 TAB PO Daily October 15, 2020 12:00am Start: 01-09-2020 take 1 tablet by jesica th once daily Multivitamin Active 1 TAB ORAL Daily January 09, 2020 10:20am Multivitamin Act stefanie nicotine 2 mg chewing gum (20 sources) Cholinergic Nicotinic Agonist Start: 06-04-2021 End: 08-08-2022 Nicotine (Polacrilex) (Nicorette) 2 mg Gum Discontinued 2 MG BUCCAL EVERY 1-2 HOURS June 04, 2021 1:00am August 08, 2022 2:44pm Start: 09-10-2018 nicotine polac rilex (NICORETTE) 2 MG gum Indications: Smoker , Personal history of nicotine dependence , Cigarette nicotine dependence without complication Take 1 each by mouth as needed for Smoking cessation. 100 tablet 0 09/10/2018 Active Nicorette 4 MG 1 piece for 30 minute as needed Mouth/Throat 24 time(s) a day Active norepinephrine (LEVOPHED) 16 mg in dextrose 5 % 250 mL infusion (1 source) Start: 07-04-2020 End: 07-06-2020 norepinephrine (LEVOPHED) 16 mg in dextrose 5 % 250 mL infusion 2 ml ondansetron 2 mg/ml injection (6 sources) Serotonin-3 Receptor Antagonist Start: 07-10-2022 End: 07-10-2022 ondansetron (ZOFRAN) injection 4 mg Start: 01-14-2022 take 4 mg by mouth e very four hours Ondansetron Active 4 MG PO Q4H January 14, 2022 12:00am Start: 10-18-2019 End: 10-26-2019 take 4 mg intravenous route every six hours as needed 4 mg, Intravenous, Every 6 hours PRN, nausea, vomiting, Starting Mon10/18/19 at 1331 Zofran Active oxyCODONE hydrochloride 5 mg oral tablet (8 sources) Opioid Agonist Start: 11-01-2021 End: 08-08-2022 take 2.5 mg by mouth every four hours Oxycodone Discontinued 2.5 MG PO Every 4 hours 10 November 01, 2021 August 08, 2022 2:44pm take 1 tablet by mouth every six hours oxyCODONE HCl 5 MG 1 tablet as needed Orally every 6 hrs Active PARoxetine hydrochloride 20 mg oral tablet (19 sources) Serotonin Reuptake Inhibitor Start: 10-15-2020 End: 10-25-2021 take 20 mg by mouth once daily Paroxetine Hcl Discontinued 20 MG PO Daily October 15, 2020 12:00am October 25, 2021 2:49pm Start: 07-05-2020 take 20 mg by mouth once daily in the morning 20 mg, Oral, EVERY MORNING, First dose on 07/05/20 at 0900 Start: 03-03-2020 take 10 mg by mouth once daily Paroxetine Hcl Active 10 MG ORAL Daily March 03, 2020 10:47am End: 07-10-2022 take 2 tablets by mouth once daily in the morning PARoxetine (PAXIL) 10 MG tablet Take 20 mg by mouth every morning 0 07/10/2022 Discontinued (LIST CLEANUP) Paxil Active polyethylene glycol 3350 62207 mg powder for oral solution (18 sources) Osmotic Laxative Start: 01-09-2020 End: 07-11-2022 17 g, Oral, DAILY, First dose on 07/10/22 at 1915, Until Discontinued MiraLax Active 5 ml sodium chloride 9 mg/ml injection (13 sources) Start: 07-10-2022 take 1 dose intravenously twice daily 5-40 mL, IntraVENous, EVERY 12 HOURS SCHEDULED (2 times per day), First dose on [place] 07/10/22 at 2100, Until Discontinued For Line Patency: Peripheral IV = 5 mL; Midline or Central Line = 10 mL/lumen. If following IV push medication, administer flush at same rate as the IV push. Flush volume is determined by type of infusion therapy being given. For non-viscous solutions use: Peripheral IV = 5 mL Midline or Central Line = 10 mL/lumen For viscous solutions (i.e. blood components, parenteral nutrition, contrast media, or after obtaining blood sample) use: Peripheral IV = 10 mL Midline or Central Line = 20 mL/lumen Start: 07-10-2022 IntraVENous, a t 5-250 mL/hr, PRN, if patient receiving piggyback infusions and maintenance fluids are not ordered OR KVO fluids to protect IV site / prevent frequent line interruptions/ long duration, Starting on [place] 07/10/22 at 1851 For piggyback infusion, administer at same rate as piggyback for a total of 25 mL. Enter 25 mL into dose field and piggyback rate into rate field of order. If piggyback is infusing at a rate less than 100 mL/hr, enter 25 mL into dose field and 100 mL/hr into rate field of order. For KVO fluids, enter rate of 20 mL/hr or less into rate field of order. Start: 07-10-2022 take 10 mL intraveno usly once as needed 10 mL, IntraVENous, PRN, Starting on [place] 07/10/22 at 1851, Until Discontinued, Line Care, After every IV line use Start: 07-04-2020 10 mL, Intrave nous, EVERY 12 HOURS SCHEDULED (2 times per day), First dose on [facility] 07/04/20 at 2230 Start: 07-04-2020 take 10 mL intraveno us route once as needed 10 mL, Intravenous, PRN, Line Care, After every IV line use, Starting 07/04/20 at 2207 Start: 07-04-2020 End: 07-05-2020 Intravenous, at 150 mL/hr, CONTINUOUS, Starting 07/04/20 at 2230 Start: 07-04-2020 take 25 mL intraveno us route every hour as needed 25 mL, Intravenous, at 100 mL/hr, PRN, If patient receiving piggyback infusions without ordered maintenance IV fluids or with frequent/long duration piggyback infusions, Starting 07/04/20 at 2207 Administer at the same rate as the piggyback being infused. Start: 07-04-2020 End: 07-04-2020 0.9 % sodium chloride bolus Start: 10-23-2019 End: 10-23-2019 sodium chloride 0.9% (NS) Start: 10-21-2019 End: 10-21-2019 sodium chloride 0.9 % (NS) infusion - ADS Override Pull Start: 10-18-2019 End: 10-18-2019 sodium chloride 0.9 % (NS) infusion - ADS Override Pull Start: 10-17-2019 End: 10-18-2019 sodium chloride (PF) (NS) fl ush 5 mL sodium chloride (PF) (NS) 0. 9 % contrast line flush 10 mL (1 source) Start: 10-19-2019 End: 10-26-2019 sodium chloride (PF) (NS) 0. 9 % contrast line flush 10 mL sodium chloride 0.9 % 1,000 mL with folic acid 1 mg, adult multi-vitamin with vitamin k 10 mL, thiamine 100 mg (1 source) Start: 07-04-2020 End: 07-05-2020 sodium chloride 0.9 % 1,000 mL with folic acid 1 mg, adult multi-vitamin with vitamin k 10 mL, thiamine 100 mg Problems Active Problems Problem Classification Problem Date Documented Da te Episodic/Chronic Administrative/social admission (2 sources) Assisted living facility patient; Translations: [Person living in residential institution] Episodic Alcohol-related disorders (20 sources) Nondependent alcohol abuse in remission; Translations: [Chronic alcoholism in remission] Onset: 7 Resolved: 2 09-20-2016 Chronic Cardiac dysrhythmias (12 sources) Ventricular premature beats; Translations: [PVC's (premature ventricular contractions)] Onset: 4 12-19-2013 Chronic Chronic obstructive pulmonary disease and bronchiectasis (20 sources) Chronic obstructive lung disease; Translations: [Chronic obstructive pulmonary disease, unspecified] Onset: 7 09-20-2016 Chronic Coagulation and hemorrhagic disorders (9 sources) Acquired coagulation factor deficiency; Translations: [Platelet count below reference range] 05-19-2020 Chronic Coagulation and hemorrhagic disorders (1 source) Other secondary thrombocytopenia; Translations: [OTHER SECONDARY THROMBOCYTOPENIA] Onset: 2 Episodic Congestive heart failure; nonhypertensive (8 sources) Right ventricular failure; Translations: [Right heart failure, unspecified] Onset: 3 05-19-2020 Chronic Deficiency and other anemia (12 sources) Pancytopenia; Translations: [Other pancytopenia] 05-19-2020 Chronic Deficiency and other anemia (4 sources) Other pancytopenia; Translations: [Other pancytopenia] 11-01-2021 Chronic Diabetes mellitus with complications (1 source) Type 2 diabetes mellitus with hyperglycemia; Translations: [TYPE 2 DM W/HYPERGLYCEMIA] Onset: 2 Chronic Diabetes mellitus without complication (16 sources) Diabetes mellitus; Translations: [Type 2 diabetes mellitus without complication] 05-19-2020 Chronic Diabetes mellitus without complication (2 sources) Hyperglycemia; Translations: [Hyperglycemia, unspecified] Onset: 2 Episodic Diseases of white blood cells (2 sources) Neutropenia; Translations: [Decreased white blood cell count, unspecified] Onset: 2 Chronic E Codes: Fall (10 sources) Fall on same level; Translations: [Fall on same level, unspecified, initial encounter] Onset: 2 10-25-2021 Episodic Fluid and electrolyte disorders (18 sources) Hyponatremia; Translations: [Hypo-osmolality and hyponatremia] Onset: 2 10-25-2021 Episodic Fracture of lower limb (3 sources) Closed fracture of left tibial plateau; Translations: [Displaced bicondylar fracture of left tibia, initial encounter for closed fracture] Onset: 3 Episodic Fracture of neck of femur (hip) (20 sources) Closed intertrochanteric fracture; Translations: [Displaced intertrochanteric fracture of left femur, initial encounter for closed fracture] Onset: 2 Resolved: 2 10-25-2021 Episodic Fracture of upper limb (1 source) Closed fracture of upper end of humerus; Translations: [Other closed displaced fracture of proximal end of right humerus, initial encounter] Episodic Genitourinary symptoms and ill-defined conditions (2 sources) Incontinence; Translations: [Incontinence] Chronic Genitourinary symptoms and ill-defined conditions (5 sources) Scalding pain on urination ; Translations: [Increased frequency of urination] Episodic Malaise and fatigue (6 sources) Asthenia; Translations: [Weakness] 05-19-2020 Episodic Mood disorders (18 sources) Moderate major depression, single episode; Translations: [Major depressive disorder] Onset: 7 09-20-2016 Chronic Nutritional deficiencies (12 sources) Deficiency of macronutrients; Translations: [Unspecified severe protein-calorie malnutrition] Onset: 2 10-25-2021 Chronic Other aftercare (1 source) Other exterminator helper termite (current) drug therapy; Translations: [OTH SNF CURRENT DRUG THERAPY] Onset: 2 Episodic Other bone disease and musculoskeletal deformities (12 sources) Osteopenia with high fracture risk; Translations: [Osteopenia with high risk of fracture] Onset: 6 07-09-2015 Other connective tissue disease (1 source) Pain in upper limb; Translations: [Pain and swelling of right upper extremity] Episodic Other connective tissue disease (1 source) Pain in left hand; Translations: [PAIN IN LEFT HAND] Onset: 2 Episodic Other gastrointestinal disorders (3 sources) Ascites; Translations: [Other ascites] Episodic Other gastrointestinal disorders (6 sources) Constipation; Translations: [Constipation, unspecified] 05-19-2020 Episodic Other injuries and conditions due to external causes (1 source) Unspecified injury of right shoulder and upper arm, initial encounter; Translations: [Injury of right shoulder, initial encounter] Episodic Other liver diseases (17 sources) Cirrhosis of liver; Translations: [Unspecified cirrhosis of liver] Onset: 5 02-02-2015 Chronic Other liver diseases (6 sources) Portal hypertension; Translations: [Portal hypertension] 05-19-2020 Chronic Other liver diseases (20 sources) Unspecified cirrhosis of liver; Translations: [Cirrhotic] Onset: 1 Resolved: 2 Chronic Other liver diseases (4 sources) Liver disease, unspecified; Translations: [LIVER DISEASE UNSPECIFIED] Onset: 2 Chronic Other liver diseases (1 source) Hepatic encephalopathy; Translations: [Hepatic encephalopathy (HCC)] Episodic Other liver diseases (4 sources) Decompensated cirrhosis of liver; Translations: [Decompensated hepatic cirrhosis] Onset: 0 10-18-2019 Other lower respiratory disease (2 sources) Dyspnea; Translations: [Dyspnea, unspecified type] Episodic Other lower respiratory disease (1 source) Hypoxia; Translations: [Hypoxia] Episodic Other nervous system disorders (5 sources) Disorder of brain; Translations: [Encephalopathy, unspecified] Onset: 1 07-07-2020 Chronic Other nervous system disorders (3 sources) Difficulty walking; Translations: [Difficulty in walking, not elsewhere classified] 05-19-2020 Chronic Other nervous system disorders (3 sources) Difficulty walking; Translations: [Difficulty walking] 05-19-2020 Other non-traumatic joint disorders (1 source) Hip pain; Translations: [Pain of right hip joint] Episodic Other non-traumatic joint disorders (3 sources) Pain in left hip; Translations: [PAIN IN LEFT HIP] Onset: 2 Episodic Other non-traumatic joint disorders (2 sources) Knee pain; Translations: [Knee Pain] Onset: 3 Episodic Other nutritional; endocrine; and metabolic disorders (1 source) Hereditary hemochromatosis; Translations: [Hereditary hemochromatosis] Chronic Other nutritional; endocrine; and metabolic disorders (14 sources) Hemochromatosis; Translations: [Hemochromatosis, unspecified] 01-14-2021 Chronic Other nutritional; endocrine; and metabolic disorders (15 sources) Hemochromatosis, unspecified; Translations: [Other hemochromatosis] Onset: 2 Resolved: 2 Chronic Other nutritional; endocrine; and metabolic disorders (1 source) Disorder of urea cycle metabolism, unspecified; Translations: [DISORDER UREA CYCLE METABOLISM UNS] Onset: 2 Chronic Pleurisy; pneumothorax; pulmonary collapse (1 source) Bilateral pleural effusion; Translations: [Bilateral pleural effusion] Episodic Residual codes; unclassified (12 sources) Tobacco user; Translations: [Tobacco abuse disorder] Onset: 5 04-11-2014 Chronic Residual codes; unclassified (1 source) Edema of lower extremity; Translations: [Bilateral lower extremity edema] Episodic Residual codes; unclassified (1 source) Edema of foot; Translations: [Pedal edema] Episodic Residual codes; unclassified (6 sources) Insomnia; Translations: [Insomnia, unspecified] 05-19-2020 Episodic Residual codes; unclassified (3 sources) Other specified postprocedural states Onset: 2 Resolved: 2 Episodic Residual codes; unclassified (5 sources) Altered mental status, unspecified; Translations: [ALTERED MENTAL STATUS UNSPECIFIED] Onset: 2 Episodic Respiratory failure; insufficiency; arrest (adult) (2 sources) Acute and chronic respiratory failure with hypoxia; Translations: [Dependence on supplemental oxygen] Onset: 2 Chronic Unclassified (1 source) Contusion of left hand; Translations: [Contusion of left hand, subsequent encounter] Unclassified (2 sources) Closed fracture of proximal right humerus; Translations: [Closed fracture of right proximal humerus] Onset: 0 07-02-2019 Unclassified (1 source) CONTACT W/AND (SUSP) EXPOS COVID-19; Translations: [CONTACT W/AND (SUSP) EXPOS COVID-19] Onset: 2 Unclassified (1 source) Hemochromatosis, unspecified; Translations: [Hemochromatosis, unspecified] Onset: 3 Unclassified (1 source) Displaced intertrochanteric fracture of left femur, subsequent encounter for closed fracture with routine healing; Translations: [Displaced intertrochanteric fracture of left femur, subsequent encounter for closed fracture with routine healing] Onset: 2 Unclassified (1 source) Displaced intertrochanteric fracture of left femur, initial encounter for closed fracture; Translations: [Displaced intertrochanteric fracture of left femur, initial encounter for closed fracture] Onset: 2 Viral infection (9 sources) COVID-19; Translations: [Encephalopathy due to COVID-19 virus] 10-28-2021 Chronic Viral infection (9 sources) Disease caused by 2019-nCoV; Translations: [COVID-19] 10-25-2021 Episodic Viral infection (1 source) COVID-19; Translations: [COVID-19] Onset: Past or Other Problems Problem Classification Problem Date Documented Date Episodic/Chronic Abdominal pain (1 source) Unspecified abdominal pain; Translations: [Abdominal pain R10.9] Onset: 01-26-2021 Resolved: 01-26-2021 Episodic Cardiac dysrhythmias (12 sources) Palpitations; Translations: [Palpitation] Onset: 12-19-2013 12-19-2013 Episodic Deficiency and other anemia (1 source) Anemia, unspecified; Translations: [ANEMIA UNSPECIFIED] Onset: 04-13-2021 Episodic E Codes: Adverse effects of medical drugs (1 source) Adverse effect of glucocorticoids and synthetic analogues, initial encounter; Translations: [ADVRS EFF GLUCOCORT SYN ANALOG INIT] Onset: 04-13-2021 Episodic E Codes: Unspecified (1 source) Nosocomial condition; Translations: [NOSOCOMIAL CONDITION] Onset: 04-13-2021 Episodic Fever of unknown origin (5 sources) Disorder characterized by fever; Translations: [Fever, unspecified] Onset: 07-04-2020 07-07-2020 Episodic Nonspecific chest pain (12 sources) Atypical chest pain; Translations: [Atypical chest pain] Onset: 12-19-2013 Resolved: 01-19-2018 01-19-2018 Episodic Other aftercare (1 source) marine oil terminal superintendent (current) use of insulin; Translations: [SNF CURRENT USE OF INSULIN] Onset: 04-13-2021 Episodic Other injuries and conditions due to external causes (1 source) History of fall; Translations: [History of recent fall] Episodic Other screening for suspected conditions (not mental disorders or infectious disease) (20 sources) Platelet count below reference range; Translations: [Breast neoplasm screening status] Onset: 02-29-2012 Resolved: 06-18-2015 05-06-2014 Episodic Pneumonia (except that caused by tuberculosis or sexually transmitted disease) (3 sources) Pneumonia, unspecified organism; Translations: [PNEUMONIA UNSPECIFIED ORGANISM] Onset: 04-01-2021 Episodic Screening and history of mental health and substance abuse codes (1 source) Personal history of nicotine dependence; Translations: [PERSONAL HISTORY OF NICOTINE DEPEND] Onset: 04-13-2021 Episodic Unclassified (12 sources) Patient encounter status; Translations: [Encounter for routine pelvic examination] Onset: 02-29-2012 Resolved: 06-18-2015 06-18-2015 Urinary tract infections (7 sources) Recurrent urinary tract infection; Translations: [Acute cystitis] Onset: 07-07-2020 07-07-2020 Episodic Results Test Name Value Interpretation Reference Range Facility Office Visiton 02-08-2023 Follow-up visit [id number] Rachel Jasso 1955 F Date Provider Department Center 02/08/2023 [id number] AQUINO THEODORA [facility] Family History Problem Relation Age of Onset Heart attack Brother Heart attack Maternal Grandfather Family Status - Relation Status Age at Brother Maternal Grandfather Level of Service:03331 [place] OFFICE/OUTPATIENT ESTABLISHED MOD MDM 30-39 MIN Reason for Visit and Comments: ECHO follow-up [Other] Congestive Heart Failure [127] Normal [facility] Office Visiton 12-14-2022 Follow-up visit [id number] Rachel Jasso 1955 F Date Provider Department Center 12/14/2022 [id number] MOODY THEODORA [facility] Family History Problem Relation Age of Onset Heart attack Brother Heart attack Maternal Grandfather Family Status - Relation Status Age at Brother Maternal Grandfather Level of Service:91074 [place] OFFICE/OUTPATIENT NEW MODERATE MDM 45-59 MINUTES Normal [facility] CBC auto differentialon 07-02 Absolute Eos # 0.11 [facility] Absolute Immature Granulocyte 0.00 [facility] Absolute Lymph # 0.85 Low [facility] Absolute [place] # 0.56 [facility] Basophils (Bld) [#/Vol] 0.04 10*3/uL [facility] Basophils/100 WBC (Bld) 1 % 0 - 2 % [facility] Eosinophils/100 WBC (Bld) 3 % 1 - 4 % [facility] Hematocrit (Bld) [Volume fraction] 33.3 % Low 36.3 - 47.1 % [facility] Hemoglobin (Bld) [Mass/Vol] 11.6 g/dL Low 11.9 - 15.1 g/dL [facility] Immature granulocytes/100 WBC (Bld) 0 % 0 [facility] Interpretation and review of laboratory results Abnormal [facility] Lymphocytes/100 WBC (Bld) 23 % Low 24 - 43 % [facility] MCH (RBC) [Entitic mass] 34.0 pg High 25.2 - 33.5 pg [facility] MCHC (RBC) [Mass/Vol] 34.8 g/dL 28.4 - 34.8 g/dL [facility] MCV (RBC) [Entitic vol] 97.7 fL 82.6 - 102.9 fL [facility] Monocytes/100 WBC (Bld) 15 % High 3 - 12 % [facility] Morphology Ajay (Bld) [Interp] Platelet scan shows Decreased Platelets [facility] Morphology Ajay (Bld) [Interp] Large platelets noted [facility] NRBC Automated 0.0 0.0 per 100 WBC [facility] Platelet distribution width (Bld) [Ratio] 13.8 % 11.8 - 14.4 % [facility] Platelets (Bld) [#/Vol] See Reflexed IPF Result [facility] RBC (Bld) [#/Vol] 3.41 10*6/uL Low 3.95 - 5.11 m/uL [facility] Segmented neutrophils/100 WBC (Bld) 58 % 36 - 65 % [facility] Segs Absolute 2.14 [facility] WBC (Bld) [#/Vol] 3.7 10*3/uL [facility] CBC with Diffon 07-11-2022 Abs. Basophil 0.04 k/uL Normal 0.0-0.2 [facility] Comment on above: Performed By: #### I PF, CDP #### [facility] [address] [place] [address] Janitor Cleaner: Messi Brown MD Abs.Imm.Granulocyte 0.00 k/uL Normal 0.00-0.30 [facility] Comment on above: Performed By: #### I PF, CDP #### [address] [place], [facility]83 Janitor Cleaner: Messi Brown MD Abs.Neutrophil (Seg) 2.14 k/uL Normal 1.50-8.10 [facility] Comment on above: Performed By: #### I PF, CDP #### [address] [place], [facility]83 Janitor Cleaner: Messi Brown MD Basophils/100 WBC (Bld) 1 % Normal 0-2 [facility] Comment on above: Performed By: #### I PF, CDP #### [address] [place] [address] Janitor Cleaner: Messi Brown MD Eosinophils (Bld) [#/Vol] 0.11 10*3/uL Normal 0.00-0.44 [facility] Comment on above: Performed By: #### I PF, CDP #### [address] [place] [address] Janitor Cleaner: Messi Brown MD Eosinophils/100 WBC (Bld) 3 % Normal 1-4 [facility] Comment on above: Performed By: #### I PF, CDP #### [address] [place], [facility]83 Janitor Cleaner: Messi Brown MD Immature granulocytes/100 WBC (Bld) 0 % Normal 0 [facility] Comment on above: Performed By: #### I PF, CDP #### [address] [place] [address] Janitor Cleaner: Messi Brown MD Lymphocytes (Bld) [#/Vol] 0.85 10*3/uL Low 1.10-3.70 [facility] Comment on above: Performed By: #### I PF, CDP #### [facility] [address] [place], [place] [id number] Janitor Cleaner: Messi Brown MD Lymphocytes/100 WBC (Bld) 23 % Low 24-43 [facility] Comment on above: Performed By: #### I PF, CDP #### [facility] [address] [place], [place] [id number] Janitor Cleaner: Messi Brown MD Monocytes (Bld) [#/Vol] 0.56 10*3/uL Normal 0.10-1.20 [facility] Comment on above: Performed By: #### I PF, CDP #### [address] [place], [place] [id number] Janitor Cleaner: Messi Brown MD Monocytes/100 WBC (Bld) 15 % High 3-12 [facility] Comment on above: Performed By: #### I PF, CDP #### [facility] [address] [place] [address] [place] [address] Janitor Cleaner: Messi Brown MD Morphology Ajay (Bld) [Interp] Platelet scan shows Decreased Platelets Normal [facility] Comment on above: Result Comment: Larg e platelets noted Performed By: #### I PF, CDP #### [address] [place] [address] Janitor Cleaner: Messi Brown MD Neutrophil (Seg) 58 % Normal 36-65 [facility] Comment on above: Performed By: #### I PF, CDP #### [facility] [address] [place] [address] [place], [place] [id number] Janitor Cleaner: Messi Brown MD Erythrocyte distribution width (RBC) [Ratio] 13.8 % Normal 11.8-14.4 [facility] Comment on above: Performed By: #### I PF, CDP #### [facility] [address] [place], [place] [id number] Janitor Cleaner: Messi Brown MD Hematocrit (Bld) [Volume fraction] 33.3 % Low 36.3-47.1 [facility] Comment on above: Performed By: #### I PF, CDP #### [address] [place], [place] [id number] Janitor Cleaner: Messi Brown MD Hemoglobin (Bld) [Mass/Vol] 11.6 g/dL Low 11.9-15.1 [facility] Comment on above: Performed By: #### I PF, CDP #### [address] [place], [place] [id number] Janitor Cleaner: Messi Brown MD MCH (RBC) [Entitic mass] 34.0 pg High 25.2-33.5 [facility] Comment on above: Performed By: #### I PHUONG, CDP #### [address] [place] [address] Janitor Cleaner: Messi Brown MD MCHC (RBC) [Mass/Vol] 34.8 g/dL Normal 28.4-34.8 [facility] Comment on above: Performed By: #### I PF, CDP #### [address] [place], [place] [id number] Janitor Cleaner: Messi Brown MD MCV (RBC) [Entitic vol] 97.7 fL Normal 82.6-102.9 [facility] Comment on above: Performed By: #### I PF, CDP #### [address] [place] [address] Janitor Cleaner: Messi Brown MD NRBC Automated 0.0 per 100 WBC Normal 0.0 [facility] Comment on above: Performed By: #### I PF, CDP #### [address] [place] [address] Janitor Cleaner: Messi Brown MD Platelet Count See Reflexed IPF Result Normal 138-453 [facility] Comment on above: Performed By: #### I PF, CDP #### [facility] [address] [place] [address] Janitor Cleaner: Messi Brown MD RBC (Bld) [#/Vol] 3.41 10*6/uL Low 3.95-5.11 [facility] Comment on above: Performed By: #### I PF, CDP #### [facility] [address] [place] [address] Janitor Cleaner: Messi Brown MD WBC (Bld) [#/Vol] 3.7 10*3/uL Normal 3.5-11.3 [facility] Comment on above: Performed By: #### I PF, CDP #### [facility] [address] [place] [address] Janitor Cleaner: Messi Brown MD COVID-19, Rapidon 07-11-2022 SARS-CoV-2 (COVID-19) RdRp gene SEAN+probe Ql (Resp) Not detected Not Detected [facility] Comment on above: Rapid NAAT: The specimen is NEGATIVE for SARS-CoV-2, the novel coronavirus associated with COVID-19. The ID NOW COVID-19 assay is designed to detect the virus that causes COVID-19 in patients with signs and symptoms of infection who are suspected of COVID-19. An individual without symptoms of COVID-19 and who is not shedding SARS-CoV-2 virus would expect to have a negative (not detected) result in this assay. Negative results should be treated as presumptive and, if inconsistent with clinical signs and symptoms or necessary for patient management, should be tested with an alternative molecular assay. Negative results do not preclude SARS-CoV-2 infection and should not be used as the sole basis for patient management decisions. Fact sheet for Healthcare Providers: https://www.fda.gov/media/777884/download Fact sheet for Patients: https://www.fda.gov/media/121985/download Methodology: Isothermal Nucleic Acid Amplification Specimen Description .NASOPHARYNGEAL SWAB [facility] Glucose, Whole Bloodon 07-11 Glucose [Mass/Vol] 242 mg/dL High 74 - 100 mg/dL [facility] Interpretation and review of laboratory results Abnormal [facility] Glucose [Mass/Vol] 207 mg/dL High 74 - 100 mg/dL [facility] Interpretation and review of laboratory results Abnormal [facility] Glucose [Mass/Vol] 196 mg/dL High 74 - 100 mg/dL [facility] Interpretation and review of laboratory results Abnormal [facility] Glucose [Mass/Vol] 160 mg/dL High 74 - 100 mg/dL [facility] Interpretation and review of laboratory results Abnormal [facility] Immature Platelet Fractionon 07-11-2022 Interpretation and review of laboratory results Abnormal [facility] Platelet, Fluorescence 49 Low [facility] Platelet, Immature Fraction 4.1 % 1.1 - 10.3 % [facility] PLT, Immature Fract.on 07-11 Platelet, Fluoresc. 49 k/uL Low 138-453 [facility] Comment on above: Performed By: #### I PF, CDP #### [facility] [address] [place] [address] [place] [address] Janitor Cleaner: Messi Brown MD PLT, Immature Fract. 4.1 % Normal 1.1-10.3 [facility] Comment on above: Performed By: #### I PF, CDP #### [facility] [address] [place] [address] Janitor Cleaner: Messi Brown MD [id number] 07-11-2022 SARS-CoV-2 (COVID-19) RNA SEAN+probe Ql (Unsp spec) Not detected Normal [facility] Comment on above: Result Comment: Rapid NAAT: The specimen is NEGATIVE for SARS-CoV-2, the novel coronavirus associated with COVID-19. The ID NOW COVID-19 assay is designed to detect the virus that causes COVID-19 in patients with signs and symptoms of infection who are suspected of COVID-19. An individual without symptoms of COVID-19 and who is not shedding SARS-CoV-2 virus would expect to have a negative (not detected) result in this assay. Negative results should be treated as presumptive and, if inconsistent with clinical signs and symptoms or necessary for patient management, should be tested with an alternative molecular assay. Negative results do not preclude SARS-CoV-2 infection and should not be used as the sole basis for patient management decisions. Fact sheet for Healthcare Providers: https://www.fda.gov/media/389755/download Fact sheet for Patients: https://www.fda.gov/media/598189/download Methodology: Isothermal Nucleic Acid Amplification Performed By: #### C OVRB #### [facility] [address] [place] [address] [place] [address] Janitor Cleaner: Messi Brown MD CBC with Auto Differentialon 07-10-2022 Absolute Eos # 0.05 [facility] Absolute Immature Granulocyte 0.00 [facility] Absolute Lymph # 0.62 Low [facility] Absolute [place] # 0.36 [facility] Basophils (Bld) [#/Vol] 0.05 10*3/uL [facility] Basophils/100 WBC (Bld) 1 % 0 - 2 % [facility] Eosinophils/100 WBC (Bld) 1 % 1 - 4 % [facility] Hematocrit (Bld) [Volume fraction] 38.9 % 36.3 - 47.1 % [facility] Hemoglobin (Bld) [Mass/Vol] 13.4 g/dL 11.9 - 15.1 g/dL [facility] Immature granulocytes/100 WBC (Bld) 0 % 0 [facility] Interpretation and review of laboratory results Abnormal [facility] Lymphocytes/100 WBC (Bld) 12 % Low 24 - 43 % [facility] MCH (RBC) [Entitic mass] 34.3 pg High 25.2 - 33.5 pg [facility] MCHC (RBC) [Mass/Vol] 34.4 g/dL 28.4 - 34.8 g/dL [facility] MCV (RBC) [Entitic vol] 99.5 fL 82.6 - 102.9 fL [facility] Monocytes/100 WBC (Bld) 7 % 3 - 12 % [facility] Morphology Ajay (Bld) [Interp] Platelet scan shows Decreased Platelets [facility] Morphology Ajay (Bld) [Interp] Large platelets noted [facility] NRBC Automated 0.0 0.0 per 100 WBC [facility] Platelet distribution width (Bld) [Ratio] 14.4 % 11.8 - 14.4 % [facility] Platelets (Bld) [#/Vol] See Reflexed IPF Result [facility] RBC (Bld) [#/Vol] 3.91 10*6/uL Low 3.95 - 5.11 m/uL [facility] Segmented neutrophils/100 WBC (Bld) 79 % High 36 - 65 % [facility] Segs Absolute 4.12 [facility] WBC (Bld) [#/Vol] 5.2 10*3/uL [facility] CBC with Diffon 07-10-2022 Abs. Basophil 0.05 k/uL Normal 0.00-0.20 [facility] Comment on above: Performed By: #### I BENNIE BACA, CDP #### [facility] [address] [place] [address] [place], [place] [id number] Janitor Cleaner: Messi Brown MD Abs.Imm.Granulocyte 0.00 k/uL Normal 0.00-0.30 [facility] Comment on above: Performed By: #### I BENNIE BACA, CDP #### [facility] [address] [place] [address] Janitor Cleaner: Messi Brown MD Abs.Neutrophil (Seg) 4.12 k/uL Normal 1.50-8.10 [facility] Comment on above: Performed By: #### I BENNIE BACA, CDP #### [facility] [address] [place], [place] [id number] Janitor Cleaner: Messi Brown MD Basophils/100 WBC (Bld) 1 % Normal 0-2 [facility] Comment on above: Performed By: #### I BENNIE BACA, CDP #### [facility] [address] [place] [address] Janitor Cleaner: Messi Brown MD Eosinophils (Bld) [#/Vol] 0.05 10*3/uL Normal 0.00-0.44 [facility] Comment on above: Performed By: #### I PHUONG CP, CDP #### [facility] [address] [place], [facility]83 Janitor Cleaner: Messi Brown MD Eosinophils/100 WBC (Bld) 1 % Normal 1-4 [facility] Comment on above: Performed By: #### Jeremy BACA CP, CDP #### [address] [place] [id number] Janitor Cleaner: Messi Brown MD Immature granulocytes/100 WBC (Bld) 0 % Normal 0 [facility] Comment on above: Performed By: #### Jeremy BACA CP, CDP #### [address] [place], [facility]83 Janitor Cleaner: Messi Brown MD Lymphocytes (Bld) [#/Vol] 0.62 10*3/uL Low 1.10-3.70 [facility] Comment on above: Performed By: #### Jeremy BACA CP, CDP #### [facility] [address] [place] [address] Dr[place], [facility]83 Janitor Cleaner: Messi Brown MD Lymphocytes/100 WBC (Bld) 12 % Low 24-43 [facility] Comment on above: Performed By: #### I BENNIE BACA, CDP #### [address] [place] [address] Janitor Cleaner: Messi Brown MD Monocytes (Bld) [#/Vol] 0.36 10*3/uL Normal 0.10-1.20 [facility] Comment on above: Performed By: #### I PF, CP, CDP #### [facility] [address] [place], [place] [id number] Janitor Cleaner: Messi Brown MD Monocytes/100 WBC (Bld) 7 % Normal 3-12 [facility] Comment on above: Performed By: #### I PF, CP, CDP #### [facility] [address] [place], [facility]83 Janitor Cleaner: Messi Brown MD Morphology Ajay (Bld) [Interp] Platelet scan shows Decreased Platelets Normal [facility] Comment on above: Result Comment: Larg e platelets noted Performed By: #### I PF, CP, CDP #### [address] [place], [place] [id number] Janitor Cleaner: Messi Brown MD Neutrophil (Seg) 79 % High 36-65 [facility] Comment on above: Performed By: #### I PF CP, CDP #### [address] [place], [facility]83 Janitor Cleaner: Messi Brown MD Erythrocyte distribution width (RBC) [Ratio] 14.4 % Normal 11.8-14.4 [facility] Comment on above: Performed By: #### I PF CP, CDP #### [address] [place], [place] [address] Janitor Cleaner: Messi Brown MD Hematocrit (Bld) [Volume fraction] 38.9 % Normal 36.3-47.1 [facility] Comment on above: Performed By: #### I PF, CP, CDP #### [address] [place], [place] [id number] Janitor Cleaner: Messi Brown MD Hemoglobin (Bld) [Mass/Vol] 13.4 g/dL Normal 11.9-15.1 [facility] Comment on above: Performed By: #### I PF, CP, CDP #### [facility] [address] [place], [place] 835[address]83 Janitor Cleaner: Messi Brown MD MCH (RBC) [Entitic mass] 34.3 pg High 25.2-33.5 [facility] Comment on above: Performed By: #### I PHUONG CP, CDP #### [facility] [address] [place], [place] [id number] Janitor Cleaner: Messi Brown MD MCHC (RBC) [Mass/Vol] 34.4 g/dL Normal 28.4-34.8 [facility] Comment on above: Performed By: #### I BENNIE BACA, CDP #### [address] [place], [place] [id number] Janitor Cleaner: Messi Brown MD MCV (RBC) [Entitic vol] 99.5 fL Normal 82.6-102.9 [facility] Comment on above: Performed By: #### Jeremy BACA CP, CDP #### [address] [place], [place] [phone] Janitor Cleaner: Messi Brown MD NRBC Automated 0.0 per 100 WBC Normal 0.0 [facility] Comment on above: Performed By: #### I BENNIE BACA, CDP #### [address] [place], [place] 699[address]83 Janitor Cleaner: Messi Brown MD Platelet Count See Reflexed IPF Result Normal 138-453 [facility] Comment on above: Performed By: #### I BENNIE BACA, CDP #### [facility] [address] [place], [place] [id number] Janitor Cleaner: Messi Brown MD RBC (Bld) [#/Vol] 3.91 10*6/uL Low 3.95-5.11 [facility] Comment on above: Performed By: #### I BENNIE BACA, CDP #### [address] [place] [address] Janitor Cleaner: Messi Brown MD WBC (Bld) [#/Vol] 5.2 10*3/uL Normal 3.5-11.3 [facility] Comment on above: Performed By: #### I PF, CP, CDP #### [facility] [address] [place] [address] Janitor Cleaner: Messi Brown [facility] Albumin [Mass/Vol] 3.6 g/dL 3.5 - 5.2 g/dL [facility] Albumin/Globulin [Mass ratio] 1.6 {ratio} 1.0 - 2.5 [facility] ALP [Catalytic activity/Vol] 116 U/L High 35 - 104 U/L [facility] ALT [Catalytic activity/Vol] 23 U/L 5 - 33 U/L [facility] Anion gap [Moles/Vol] 18 mmol/L High 9 - 17 mmol/L [facility] AST [Catalytic activity/Vol] 34 U/L High NINF - 32 U/L [facility] Bilirubin [Mass/Vol] 2.8 mg/dL High 0.3 - 1 .2 mg/dL [facility] Calcium [Mass/Vol] 9.5 mg/dL 8.6 - 10. 4 mg/dL [facility] Chloride [Moles/Vol] 101 mmol/L 98 - 10 7 mmol/L [facility] CO2 [Moles/Vol] 17 mmol/L Low 20 - 31 mmol/L [facility] Creatinine [Mass/Vol] 0.48 mg/dL Low 0.50 - 0.90 mg/dL [facility] GFR/1.73 sq M.predicted MDRD (S/P/Bld) [Vol rate/Area] - PINF [facility] Comment on above: These results are not intended for use in patients <18 years of age. eGFR results are calculated without a race factor using the 2020 CKD-EPI equation. Careful clinical correlation is recommended, particularly when comparing to results calculated using previous equations. The CKD-EPI equation is less accurate in patients with extremes of muscle mass, extra-renal metabolism of creatine, excessive creatine ingestion, or following therapy that affects renal tubular secretion. Glucose [Mass/Vol] 174 mg/dL High 70 - 99 mg/dL [facility] Interpretation and review of laboratory results Abnormal [facility] Potassium [Moles/Vol] 4.1 mmol/L 3.7 - 5.3 mmol/L [facility] [employer] Protein [Mass/Vol] 5.9 g/dL Low 6.4 - 8.3 g/dL [facility] [employer] Sodium [Moles/Vol] 136 mmol/L 135 - 144 mmol/L [facility] Urea nitrogen [Mass/Vol] 17 mg/dL 8 - 23 mg/dL [facility] [employer] Urea nitrogen/Creatinine (Bld) [Mass ratio] 35 High 9 - [address] [facility] [address] KNEE LEFT WO CONTRASTon 0 07-10-2022 CT KNEE LEFT WO CONTRAST EXAMINATION: CT OF THE LEFT KNEE WITHOUT CONTRAST 07/10/2022 1:04 pm TECHNIQUE: CT of the left knee was performed without the administration of intravenous contrast. Multiplanar reformatted images are provided for review. Automated exposure control, iterative reconstruction, and/or weight based adjustment of the mA/kV was utilized to reduce the radiation dose to as low as reasonably achievable. COMPARISON: Left knee radiographs from 07/10/2022 HISTORY ORDERING SYSTEM PROVIDED HISTORY: Rule out tibial plateau fracture TECHNOLOGIST PROVIDED HISTORY: Rule out tibial plateau fracture Decision Support Exception - unselect if not a suspected or confirmed emergency medical condition->Emergency Medical Condition (MA) 67-year-old female with possible tibial plateau fracture FINDINGS: Bones: Underlying severe osteopenia/osteoporosis. Mildly depressed anterolateral tibial plateau fracture on image 39, series 602 and image 28, series 601. This is also well seen on image [id number], series 2. There is a vertical fracture component extending through the lateral compartment joint space and extending inferiorly through the proximal lateral tibial metaphysis. Depression/articular offset measures up to 2 mm. Distal femur and patella appear intact. Soft Tissue: Mild edema in the subcutaneous fat about the left knee. No sizable Pressley's cyst. Joint: Large lipohemarthrosis/effusion. IMPRESSION: 1. Mildly depressed anterolateral tibial plateau fracture with depression/articular offset measuring 2 mm. Vertical fracture component extends through the lateral compartment joint space and inferiorly through the proximal lateral tibial metaphysis. Underlying severe osteopenia/osteoporosis. 2. Large lipohemarthrosis/joint effusion. 3. Mild edema in the subcutaneous fat about the left knee. Interpreted by: Albert Carr MD Signed by: Albert Carr MD 07/10/22 Final result Normal [facility] 1. Mildly depressed anterolateral tibial plateau fracture with depression/articular offset measuring 2 mm. Vertical fracture component extends through the lateral compartment joint space and inferiorly through the proximal lateral tibial metaphysis. Underlying severe osteopenia/osteoporosis. 2. Large lipohemarthrosis/joint effusion. 3. Mild edema in the subcutaneous fat about the left knee. [facility] EXAMINATION: CT OF THE LEFT KNEE WITHOUT CONTRAST 07/10/2022 1:04 pm TECHNIQUE: CT of the left knee was performed without the administration of intravenous contrast. Multiplanar reformatted images are provided for review. Automated exposure control, iterative reconstruction, and/or weight based adjustment of the mA/kV was utilized to reduce the radiation dose to as low as reasonably achievable. COMPARISON: Left knee radiographs from 07/10/2022 HISTORY ORDERING SYSTEM PROVIDED HISTORY: Rule out tibial plateau fracture TECHNOLOGIST PROVIDED HISTORY: Rule out tibial plateau fracture Decision Support Exception - unselect if not a suspected or confirmed emergency medical condition->Emergency Medical Condition (MA) 67-year-old female with possible tibial plateau fracture FINDINGS: Bones: Underlying severe osteopenia/osteoporosis. Mildly depressed anterolateral tibial plateau fracture on image 39, series 602 and image 28, series 601. This is also well seen on image 63-72, series 2. There is a vertical fracture component extending through the lateral compartment joint space and extending inferiorly through the proximal lateral tibial metaphysis. Depression/articular offset measures up to 2 mm. Distal femur and patella appear intact. Soft Tissue: Mild edema in the subcutaneous fat about the left knee. No sizable Pressley's cyst. Joint: Large lipohemarthrosis/effusion. [facility] Albert Crar MD - 07/10/2022 EXAMINATION: CT OF THE LEFT KNEE WITHOUT CONTRAST 07/10/2022 1:04 pm TECHNIQUE: CT of the left knee was performed without the administration of intravenous contrast. Multiplanar reformatted images are provided for review. Automated exposure control, iterative reconstruction, and/or weight based adjustment of the mA/kV was utilized to reduce the radiation dose to as low as reasonably achievable. COMPARISON: Left knee radiographs from 07/10/2022 HISTORY ORDERING SYSTEM PROVIDED HISTORY: Rule out tibial plateau fracture TECHNOLOGIST PROVIDED HISTORY: Rule out tibial plateau fracture Decision Support Exception - unselect if not a suspected or confirmed emergency medical condition->Emergency Medical Condition (MA) 67-year-old female with possible tibial plateau fracture FINDINGS: Bones: Underlying severe osteopenia/osteoporosis. Mildly depressed anterolateral tibial plateau fracture on image 39, series 602 and image 28, series 601. This is also well seen on image 63-72, series 2. There is a vertical fracture component extending through the lateral compartment joint space and extending inferiorly through the proximal lateral tibial metaphysis. Depression/articular offset measures up to 2 mm. Distal femur and patella appear intact. Soft Tissue: Mild edema in the subcutaneous fat about the left knee. No sizable Pressley's cyst. Joint: Large lipohemarthrosis/effusion. IMPRESSION: 1. Mildly depressed anterolateral tibial plateau fracture with depression/articular offset measuring 2 mm. Vertical fracture component extends through the lateral compartment joint space and inferiorly through the proximal lateral tibial metaphysis. Underlying severe osteopenia/osteoporosis. 2. Large lipohemarthrosis/joint effusion. 3. Mild edema in the subcutaneous fat about the left knee. [facility] [employer] Phone: [facility] [employer] Phone: Radiology Study observation (narrative) [facility] [employer] Phone: Comp Metabolic Profon 2022 BUN/CRE Ratio 35 High 9-20 [facility] Comment on above: Performed By: #### I BENNIE BACA, VIKY #### [facility] [address] [place] [address] Janitor Cleaner: Messi Brown MD Creatinine [Mass/Vol] 0.48 mg/dL Low 0.50-0.90 [facility] Comment on above: Performed By: #### I BENNIE BACA, CDP #### [address] [place] [address] Janitor Cleaner: Messi Brown MD GFR/1.73 sq M.predicted among non-blacks MDRD (S/P/Bld) [Vol rate/Area] mL/min/{1.73_m2} Normal >60 [facility] Comment on above: Result Comment: These results are not intended for use in patients <18 years of age. eGFR results are calculated without a race factor using the 2020 CKD-EPI equation. Careful clinical correlation is recommended, particularly when comparing to results calculated using previous equations. The CKD-EPI equation is less accurate in patients with extremes of muscle mass, extra-renal metabolism of creatine, excessive creatine ingestion, or following therapy that affects renal tubular secretion. Performed By: #### I BENNIE BACA, CDP #### [address] [place] [address] Janitor Cleaner: Messi Brown MD Albumin [Mass/Vol] 3.6 g/dL Normal 3.5-5.2 [facility] Comment on above: Performed By: #### Jeremy BACA CP, CDP #### [address] [place] [address] Janitor Cleaner: Messi Brown MD Albumin/Glob Ratio 1.6 Normal 1.0-2.5 [facility] Comment on above: Performed By: #### Jeremy BACA CP, CDP #### [address] [place] [address] Janitor Cleaner: Messi Brown MD Alkaline Phos 116 U/L High 35-104 [facility] Comment on above: Performed By: #### I BENNIE BACA, CDP #### [address] [place] [address] Janitor Cleaner: Messi Brown MD ALT [Catalytic activity/Vol] 23 U/L Normal 5-33 [facility] Comment on above: Performed By: #### Jeremy BACA CP, CDP #### [facility] [address] [place], [place] [id number] Janitor Cleaner: Messi Brown MD Anion gap [Moles/Vol] 18 mmol/L High 9-17 [facility] Comment on above: Performed By: #### I PF CP, CDP #### [facility] [address] [place], [place] [id number] Janitor Cleaner: Messi Brown MD AST [Catalytic activity/Vol] 34 U/L High <32 [facility] Comment on above: Performed By: #### I PHUONG CP, CDP #### [facility] [address] [place], [place] [id number] Janitor Cleaner: Messi Brown MD Bilirubin [Mass/Vol] 2.8 mg/dL High 0.3-1.2 [facility] Comment on above: Performed By: #### Jeremy BACA CP, CDP #### [facility] [address] [place] [address] [place], [place] [id number] Janitor Cleaner: Messi Brown MD Calcium [Mass/Vol] 9.5 mg/dL Normal 8.6-10.4 [facility] Comment on above: Performed By: #### I BENNIE BACA, CDP #### [facility] [address] [place] [address] [place] [place], [place] [id number] Janitor Cleaner: Messi Brown MD Chloride [Moles/Vol] 101 mmol/L Normal 98-107 [facility] Comment on above: Performed By: #### I PF CP, CDP #### [facility] [address] [place], [place] [id number] Janitor Cleaner: Messi Brown MD CO2 [Moles/Vol] 17 mmol/L Low 20-31 [facility] Comment on above: Performed By: #### I PF CP, CDP #### [facility] [address] [place], [place] [id number] Janitor Cleaner: Messi Brown MD Glucose [Mass/Vol] 174 mg/dL High 70-99 [facility] Comment on above: Performed By: #### I BENNIE BACA, CDP #### [facility] [address] [place], [place] [id number] Janitor Cleaner: Messi Brown MD Potassium [Moles/Vol] 4.1 mmol/L Normal 3.7-5.3 [facility] Comment on above: Performed By: #### I BENNIE BACA, CDP #### [facility] [address] [place], [place] [id number] Janitor Cleaner: Messi Brown MD Protein [Mass/Vol] 5.9 g/dL Low 6.4-8.3 [facility] Comment on above: Performed By: #### Jeremy BACA CP, CDP #### [address] [place], [place] [id number] Janitor Cleaner: Messi Brown MD Sodium [Moles/Vol] 136 mmol/L Normal 135-144 [facility] Comment on above: Performed By: #### I BENNIE BACA, CDP #### [address] [place], [place] [id number] Janitor Cleaner: Messi Brown MD Urea nitrogen [Mass/Vol] 17 mg/dL Normal 8-23 [facility] Comment on above: Performed By: #### Jeremy BACA CP, CDP #### [facility] [address] [place] [address] [place] [place], [place] [phone] Janitor Cleaner: Messi Brown MD Glucose, Whole Bloodon 07-10 Glucose [Mass/Vol] 202 mg/dL High 74 - 100 mg/dL [facility] Interpretation and review of laboratory results Abnormal [facility] Glucose [Mass/Vol] 184 mg/dL High 74 - 100 mg/dL [facility] Interpretation and review of laboratory results Abnormal [facility] Glucose [Mass/Vol] 158 mg/dL High 74 - 100 mg/dL [facility] Interpretation and review of laboratory results Abnormal [facility] Immature Platelet Fractionon 07-10-2022 Interpretation and review of laboratory results Abnormal [facility] Platelet, Fluorescence 53 Low [facility] Platelet, Immature Fraction 3.9 % 1.1 - 10.3 % [facility] No Panel Informationon 07-10 Left knee: 1. Slight age-indeterminate deformity of the lateral tibial plateau. Large joint effusion/lipohemarthrosis. This could be related to an occult fracture at the lateral tibial plateau. Further evaluation with CT recommended. 2. Diffuse osteopenia. Left tib fib: 1. Slight age-indeterminate deformity of the lateral tibial plateau. Underlying osteopenia. Please see left knee radiograph interpretation. 2. Evidence of prior ORIF of the medial malleolus, distal tibia and distal fibula. [facility] CONSOL[facility] EXAMINATION: 2 XRAY VIEWS OF THE LEFT TIBIA AND FIBULA; THREE XRAY VIEWS OF THE LEFT KNEE 07/10/2022 11:39 am COMPARISON: None. HISTORY: ORDERING SYSTEM PROVIDED HISTORY: fall TECHNOLOGIST PROVIDED HISTORY: fall 67-year-old female with history of fall FINDINGS: Left knee: Diffuse osteopenia. Osseous alignment is normal. No suspicious osteolytic or osteoblastic lesions. Large joint effusion. This could represent lipohemarthrosis. Slight age-indeterminate deformity of the lateral tibial plateau. Left tib fib: Slight age-indeterminate deformity of the lateral tibial plateau. Evidence of remote ORIF with hardware at the medial malleolus, distal tibia and distal fibula. Diffuse osteopenia. Mild edema of the left leg. No tibiotalar joint effusion. [facility] Albert Carr MD - 07/10/2022 EXAMINATION: 2 XRAY VIEWS OF THE LEFT TIBIA AND FIBULA; THREE XRAY VIEWS OF THE LEFT KNEE 07/10/2022 11:39 am COMPARISON: None. HISTORY: ORDERING SYSTEM PROVIDED HISTORY: fall TECHNOLOGIST PROVIDED HISTORY: fall 67-year-old female with history of fall FINDINGS: Left knee: Diffuse osteopenia. Osseous alignment is normal. No suspicious osteolytic or osteoblastic lesions. Large joint effusion. This could represent lipohemarthrosis. Slight age-indeterminate deformity of the lateral tibial plateau. Left tib fib: Slight age-indeterminate deformity of the lateral tibial plateau. Evidence of remote ORIF with hardware at the medial malleolus, distal tibia and distal fibula. Diffuse osteopenia. Mild edema of the left leg. No tibiotalar joint effusion. IMPRESSION: Left knee: 1. Slight age-indeterminate deformity of the lateral tibial plateau. Large joint effusion/lipohemarthrosis. This could be related to an occult fracture at the lateral tibial plateau. Further evaluation with CT recommended. 2. Diffuse osteopenia. Left tib fib: 1. Slight age-indeterminate deformity of the lateral tibial plateau. Underlying osteopenia. Please see left knee radiograph interpretation. 2. Evidence of prior ORIF of the medial malleolus, distal tibia and distal fibula. [employer] [facility] [employer] Phone: No Panel InformationOrdered By: Albert aCrr on 07-10-2022 [facility] [employer] [facility] [employer] Phone: PLT, Immature Fract.on 07-10 Platelet, Fluoresc. 53 k/uL Low 138-453 [facility] Comment on above: Performed By: #### I PF, CP, CDP #### [facility] [address] [place] [address] Janitor Cleaner: Messi Brown MD PLT, Immature Fract. 3.9 % Normal 1.1-10.3 [facility] Comment on above: Performed By: #### I PF, CP, CDP #### [facility] [address] [place] [address] Janitor Cleaner: Messi Brown MD XR KNEE LEFT (3 VIEWS)on XR KNEE LEFT (3 VIEWS) EXAMINATION: 2 XRAY VIEWS OF THE LEFT TIBIA AND FIBULA; THREE XRAY VIEWS OF THE LEFT KNEE 07/10/2022 11:39 am COMPARISON: None. HISTORY: ORDERING SYSTEM PROVIDED HISTORY: fall TECHNOLOGIST PROVIDED HISTORY: fall 67-year-old female with history of fall FINDINGS: Left knee: Diffuse osteopenia. Osseous alignment is normal. No suspicious osteolytic or osteoblastic lesions. Large joint effusion. This could represent lipohemarthrosis. Slight age-indeterminate deformity of the lateral tibial plateau. Left tib fib: Slight age-indeterminate deformity of the lateral tibial plateau. Evidence of remote ORIF with hardware at the medial malleolus, distal tibia and distal fibula. Diffuse osteopenia. Mild edema of the left leg. No tibiotalar joint effusion. IMPRESSION: Left knee: 1. Slight age-indeterminate deformity of the lateral tibial plateau. Large joint effusion/lipohemarthrosis. This could be related to an occult fracture at the lateral tibial plateau. Further evaluation with CT recommended. 2. Diffuse osteopenia. Left tib fib: 1. Slight age-indeterminate deformity of the lateral tibial plateau. Underlying osteopenia. Please see left knee radiograph interpretation. 2. Evidence of prior ORIF of the medial malleolus, distal tibia and distal fibula. Interpreted by: Albert Carr MD Signed by: Albert Carr MD 07/10/22 Final result Normal [facility] Radiology Study observation (narrative) [facility] [facility] [employer] Phone: XR TIBIA FIBULA LEFT (2 VIEW S)on 07-10-2022 XR TIBIA FIBULA LEFT (2 VIEWS) EXAMINATION: 2 XRAY VIEWS OF THE LEFT TIBIA AND FIBULA; THREE XRAY VIEWS OF THE LEFT KNEE 07/10/2022 11:39 am COMPARISON: None. HISTORY: ORDERING SYSTEM PROVIDED HISTORY: fall TECHNOLOGIST PROVIDED HISTORY: fall 67-year-old female with history of fall FINDINGS: Left knee: Diffuse osteopenia. Osseous alignment is normal. No suspicious osteolytic or osteoblastic lesions. Large joint effusion. This could represent lipohemarthrosis. Slight age-indeterminate deformity of the lateral tibial plateau. Left tib fib: Slight age-indeterminate deformity of the lateral tibial plateau. Evidence of remote ORIF with hardware at the medial malleolus, distal tibia and distal fibula. Diffuse osteopenia. Mild edema of the left leg. No tibiotalar joint effusion. IMPRESSION: Left knee: 1. Slight age-indeterminate deformity of the lateral tibial plateau. Large joint effusion/lipohemarthrosis. This could be related to an occult fracture at the lateral tibial plateau. Further evaluation with CT recommended. 2. Diffuse osteopenia. Left tib fib: 1. Slight age-indeterminate deformity of the lateral tibial plateau. Underlying osteopenia. Please see left knee radiograph interpretation. 2. Evidence of prior ORIF of the medial malleolus, distal tibia and distal fibula. Interpreted by: Albert Carr MD Signed by: Albert Carr MD 07/10/22 Final result [facility] Radiology Study observation (narrative) [facility] [employer] Phone: XR hip LT min 2V(w/wo pelvis )*on 04-13-2022 XR hip LT min 2V(w/wo pelvis)* [address] [address] XRay Report Signed Patient: Hetal Jasso MR#: [id number] : 1955 Acct:[id number] Age/Sex: 66 / F ADM Date: 04/13/22 [place] [facility] [place] Type[place] [facility] Attending Dr: Karel Moralez II, MD Copies to: Karel Moralez MD Ordering Provider: Karel Moralez MD Date of Service: 04/13/22 XR/XR hip LT min 2V(w/wo pelvis)*: Closed displaced intertrochanteric fracture of left femur wi LEFT HIP - 2 views: CLINICAL HISTORY: Left hip nail fixation. COMPARISON: Left hip 01/20/2022 FINDINGS: Hardware fixation involving the left hip without evidence of hardware complication. Fracture is grossly unchanged. Mild degenerative changes right hip. XR/XR hip LT min 2V(w/wo pelvis)* IMPRESSION: NO HARDWARE COMPLICATION. FRACTURE IS UNCHANGED.. Impression dictated by: Rivas Flower Jr., D.O.04/13/2022 4:08 PM Dictation Location: [place] [address] Transcribed By: [facility] 04/13/22 1608 Dictated By: Rivas Flower Jr, DO 04/13/22 1607 Signed By: 04/13/22 1608 Normal [facility] XR hip LT min 2V(w/wo pelvis)* [facility] [employer] Other XR hip LT min 2V(w/wo pelvis)* [facility] [employer] Other XR hip LT min 2V(w/wo pelvis)* [address] [employer] Other XR hip LT min 2V(w/wo pelvis)* [place] [address] [employer] Other XR hip LT min 2V(w/wo pelvis)* XRay Report [employer] Other XR hip LT min 2V(w/wo pelvis)* Signed [employer] Other XR hip LT min 2V(w/wo pelvis)* Patient: Hetal Jasso MR#: [id number] [employer] Other XR hip LT min 2V(w/wo pelvis)* : 1955 Acct:[id number] [employer] Other XR hip LT min 2V(w/wo pelvis)* Age/Sex: 66 / F ADM Date: 04/13/22 [employer] Other XR hip LT min 2V(w/wo pelvis)* [place] [facility] [place] Type[place] [facility] [employer] Other XR hip LT min 2V(w/wo pelvis)* Attending Dr: Karel Moralez II, MD [employer] Other XR hip LT min 2V(w/wo pelvis)* Copies to: Karel Moralez MD [employer] Other XR hip LT min 2V(w/wo pelvis)* Ordering Provider: Karel Moralez MD [employer] Other XR hip LT min 2V(w/wo pelvis)* Date of Service: 04/13/22 [employer] Other XR hip LT min 2V(w/wo pelvis)* XR/XR hip LT min 2V(w/wo pelvis)*: Closed displaced intertrochanteric [employer] Other XR hip LT min 2V(w/wo pelvis)* fracture of left femur wi [employer] Other XR hip LT min 2V(w/wo pelvis)* LEFT HIP - 2 views: [employer] Other XR hip LT min 2V(w/wo pelvis)* CLINICAL HISTORY: Left hip nail fixation. [employer] Other XR hip LT min 2V(w/wo pelvis)* COMPARISON: Left hip 01/20/2022 [employer] Other XR hip LT min 2V(w/wo pelvis)* FINDINGS: Hardware fixation involving the left hip without evidence of hardware complication. [employer] Other XR hip LT min 2V(w/wo pelvis)* Fracture is grossly unchanged. Mild degenerative changes right hip. [employer] Other XR hip LT min 2V(w/wo pelvis)* XR/XR hip LT min 2V(w/wo pelvis)* [employer] Other XR hip LT min 2V(w/wo pelvis)* IMPRESSION: [employer] Other XR hip LT min 2V(w/wo pelvis)* NO HARDWARE COMPLICATION. FRACTURE IS UNCHANGED.. [employer] Other XR hip LT min 2V(w/wo pelvis)* Impression dictated by: Rivas Flower Jr., D.OBrett04/13/2022 4:08 PM [employer] Other XR hip LT min 2V(w/wo pelvis)* Dictation Location: [place] [address] [employer] Other XR hip LT min 2V(w/wo pelvis)* Transcribed By: SHAY 04/13/22 1603 [employer] Other XR hip LT min 2V(w/wo pelvis)* Dictated By: Rivas Flower Jr, DO 04/13/22 1607 [employer] Other XR hip LT min 2V(w/wo pelvis)* Signed By: [employer] Other XR hip LT min 2V(w/wo pelvis)* 04/13/22 5348 [employer] Other XR hip LT min 2V(w/wo pelvis )*on 01-20-2022 XR hip LT min 2V(w/wo pelvis)* [facility] Main [address] [address] XRay Report Signed Patient: Hetal Jasso MR#: [id number] : 1955 Acct:[id number] Age/Sex: 66 / F ADM Date: 01/20/22 [place] [facility] [place] [facility] [facility] Attending Dr: Karel Moralez II, MD Copies to: Karel Moralez MD Ordering Provider: Karel Moralez MD Date of Service: 01/20/22 XR/XR hip LT min 2V(w/wo pelvis)*: Closed displaced intertrochanteric fracture of left femur wi LEFT HIP - 2 views: CLINICAL HISTORY: Follow-up left hip fracture and fixation hardware. COMPARISON: 12/09/2021 AP view of the lower pelvis and crosstable lateral view of the left hip were obtained. There is redemonstration of a dynamic hip screw with short intramedullary sari. The intratrochanteric hip fracture is unchanged in position. There is no new fracture or dislocation. There are no significant soft tissue abnormalities. XR/XR hip LT min 2V(w/wo pelvis)* IMPRESSION: STABLE LEFT HIP FRACTURE AND FIXATION HARDWARE. Impression dictated by: Tonya Edwards M.D.01/20/2022 1:22 PM Dictation Location: [place] [address] Transcribed By: [facility] 01/20/22 1322 Dictated By: Tonya Edwards MD 01/20/22 1321 Signed By: 01/20/22 1322 Normal [facility] XR hip LT min 2V(w/wo pelvis )*on 12-09-2021 XR hip LT min 2V(w/wo pelvis)* [facility] Main [address] [address] XRay Report Signed Patient: Hetal Jasso MR#: [id number] : 1955 Acct:[id number] Age/Sex: 66 / F ADM Date: 12/09/21 [place] [facility] [place] Type[place] [facility] Attending Dr: Karel Moralez II, MD Copies to: Karel Moralez MD Ordering Provider: Karel Moralez MD Date of Service: 12/09/21 XR/XR hip LT min 2V(w/wo pelvis)*: PAIN LEFT HIP - 2 views: CLINICAL HISTORY: Follow-up left hip fixation. COMPARISON: Intraoperative study 10/25/2021 FINDINGS: Hardware fixation involving a left hip fracture without radiographic hardware complication. Incomplete healing. XR/XR hip LT min 2V(w/wo pelvis)* IMPRESSION: NO EVIDENCE OF HARDWARE COMPLICATION.. Impression dictated by: Rivas Flower Jr., D.O.12/09/2021 2:00 PM Dictation Location: [place] [address] Transcribed By: [facility] 12/09/21 1400 Dictated By: Rivas Flower Jr, DO 12/09/21 1359 Signed By: 12/09/21 1400 Normal [facility] XR hip LT min 2V(w/wo pelvis)* [facility] [employer] Other XR hip LT min 2V(w/wo pelvis)* [facility] [employer] Other XR hip LT min 2V(w/wo pelvis)* [address] [place] [address] [employer] Other XR hip LT min 2V(w/wo pelvis)* [place] [address] [employer] Other XR hip LT min 2V(w/wo pelvis)* XRay Report [employer] Other XR hip LT min 2V(w/wo pelvis)* Signed [employer] Other XR hip LT min 2V(w/wo pelvis)* Patient: Hetal Jasso MR#: [id number] [employer] Other XR hip LT min 2V(w/wo pelvis)* : 1955 Acct:[id number] [employer] Other XR hip LT min 2V(w/wo pelvis)* Age/Sex: 66 / F ADM Date: 12/09/21 [employer] Other XR hip LT min 2V(w/wo pelvis)* [place] [facility] [place] Type: [facility] [employer] Other XR hip LT min 2V(w/wo pelvis)* Attending Dr: Karel Moralez II, MD [employer] Other XR hip LT min 2V(w/wo pelvis)* Copies to: Karel Moralez MD [employer] Other XR hip LT min 2V(w/wo pelvis)* Ordering Provider: Karel Moralez MD [employer] Other XR hip LT min 2V(w/wo pelvis)* Date of Service: 12/09/21 [employer] Other XR hip LT min 2V(w/wo pelvis)* XR/XR hip LT min 2V(w/wo pelvis)*: PAIN [employer] Other XR hip LT min 2V(w/wo pelvis)* LEFT HIP - 2 views: [employer] Other XR hip LT min 2V(w/wo pelvis)* CLINICAL HISTORY: Follow-up left hip fixation. [employer] Other XR hip LT min 2V(w/wo pelvis)* COMPARISON: Intraoperative study 10/25/2021 [employer] Other XR hip LT min 2V(w/wo pelvis)* FINDINGS: Hardware fixation involving a left hip fracture without radiographic hardware [employer] Other XR hip LT min 2V(w/wo pelvis)* complication. Incomplete healing. [employer] Other XR hip LT min 2V(w/wo pelvis)* XR/XR hip LT min 2V(w/wo pelvis)* [employer] Other XR hip LT min 2V(w/wo pelvis)* IMPRESSION: [employer] Other XR hip LT min 2V(w/wo pelvis)* NO EVIDENCE OF HARDWARE COMPLICATION.. [employer] Other XR hip LT min 2V(w/wo pelvis)* Impression dictated by: Rivas Flower Jr., D.O.12/09/2021 2:00 PM [employer] Other XR hip LT min 2V(w/wo pelvis)* Dictation Location: [place] [address] [employer] Other XR hip LT min 2V(w/wo pelvis)* Transcribed By: PWS 12/09/21 1400 [employer] Other XR hip LT min 2V(w/wo pelvis)* Dictated By: Rivas Flower Jr, DO 12/09/21 1359 [employer] Other XR hip LT min 2V(w/wo pelvis)* Signed By: [employer] Other XR hip LT min 2V(w/wo pelvis)* 12/09/21 1400 [employer] Other Albumin [Mass/volume] in Ser um or PlasmaOrdered By: Sharath Marques on 11-01-2021 Albumin [Mass/Vol] 2.6 g/dL 3.2-5.5 [facility] Basophils Auto (Bld) [#/Vol] Ordered By: Sharath Marques on 11-01-2021 Basophils (Bld) [#/Vol] 0.0 10*3/uL 0.0-0.2 [facility] Basophils/100 WBC Auto (Bld) Ordered By: Sharath Marques on 11-01-2021 Basophils/100 WBC (Bld) 0.2 % . [facility] Blood hemoglobin measurement (mass/volume)Ordered By: Sharath Marques on 11-01-2021 Hemoglobin (Bld) [Mass/Vol] 10.0 g/dL 11.8-15.4 [facility] Blood leukocytes automated c ount (number/volume)Ordered By: Sharath Marques on 11-01-2021 WBC (Bld) [#/Vol] 3.4 10*3/uL 4.5-11.0 [facility] Creatinine and Glomerular fi ltration rate.predicted panel (S/P/Bld)Ordered By: Sharath Marques on 11-01-2021 Creatinine [Mass/Vol] 0.60 mg/dL 0.44-1.03 [facility] Direct bilirubin measurement Ordered By: Sharath Marques on 11-01-2021 Bilirubin.direct [Mass/Vol] 0.7 mg/dL 0.0-0.4 [facility] Eosinophils Auto (Bld) [#/Vo l]Ordered By: Sharath Marques on 11-01-2021 Eosinophils (Bld) [#/Vol] 0.1 10*3/uL 0.0-0.45 [facility] Eosinophils/100 WBC Auto (Bl d)Ordered By: Sharath Marques on 11-01-2021 Eosinophils/100 WBC (Bld) 3.7 % . [facility] Erythrocyte distribution wid th Auto (RBC) [Ratio]Ordered By: Sharath Marques on 11-01-2021 Erythrocyte distribution width (RBC) [Ratio] 16.2 % 11.9-15.3 [facility] Estimated glomerular filtrat ion rate (GFR) non- AmericanOrdered By: Sharath Marques on 11-01-2021 GFR/1.73 sq M.predicted among non-blacks MDRD (S/P/Bld) [Vol rate/Area] > 60 mL/Min [facility] Globulin Calc (S) [Mass/Vol] Ordered By: Sharath Marques on 11-01-2021 Globulin (S) [Mass/Vol] 1.8 g/dL [facility] Glucose Glucometer (BldC) [M ass/Vol]Ordered By: Kadeem Saenz on 11-01-2021 Glucose [Mass/Vol] 267 mg/dL [facility] Comment on above: Random Glucose Refer ence Range is dependent on time and content of last meal. Glucose of more than 200 mg/dL in a nonstressed, ambulatory subject supports the diagnosis of Diabetes Mellitus. Hematocrit Auto (Bld) [Volum e fraction]Ordered By: Sharath Marques on 11-01-2021 Hematocrit (Bld) [Volume fraction] 28.5 % 34.0-46.4 [facility] - CoagulationOrde red By: Sharath Marques on 11-01-2021 PT Coag (PPP) [Time] 17.2 s 9.0-12.9 [facility] - Hematology and Cell countsOrdered By: Sharath Marques on 11-01-2021 Nucleated RBC/100 WBC (Bld) [Ratio] 0.3 % 0-0.5 [facility] Lymphocytes Auto (Bld) [#/Vo l]Ordered By: Sharath Marques on 11-01-2021 Lymphocytes (Bld) [#/Vol] 0.7 10*3/uL 1.00-4.8 [facility] Lymphocytes/100 WBC Auto (Bl d)Ordered By: Sharath Marques on 11-01-2021 Lymphocytes/100 WBC (Bld) 21.7 % . [facility] MCH Auto (RBC) [Entitic mass ]Ordered By: Sharath Marques on 11-01-2021 MCH (RBC) [Entitic mass] 34.8 pg 24.7-34.3 [facility] MCHC Auto (RBC) [Mass/Vol]Or dered By: Sharath Marques on 11-01-2021 MCHC (RBC) [Mass/Vol] 34.9 g/dL 32.0-35.0 [facility] MCV Auto (RBC) [Entitic vol] Ordered By: Sharath Marques on 11-01-2021 MCV (RBC) [Entitic vol] 99.7 fL 80-100 [facility] Monocytes Auto (Bld) [#/Vol] Ordered By: Sharath Marques on 11-01-2021 Monocytes (Bld) [#/Vol] 0.5 10*3/uL 0.0-0.8 [facility] Monocytes/100 WBC Auto (Bld) Ordered By: Sharath Marques on 11-01-2021 Monocytes/100 WBC (Bld) 16.1 % . [facility] Neutrophils Auto (Bld) [#/Vo l]Ordered By: Sharath Marques on 11-01-2021 Neutrophils (Bld) [#/Vol] 2.0 10*3/uL 1.8-7.7 [facility] Neutrophils/100 WBC Auto (Bl d)Ordered By: Sharath Marques on 11-01-2021 Neutrophils/100 WBC (Bld) 58.3 % . [facility] No Panel InformationOrdered By: Sharath Marques on 11-01-2021 Estimated GFR () > 60 mL/Min [facility] Comment on above: GFR estimated refere nce range: According to KDOQI guidelines, <60 ml/min/1.73m2 is sufficient to diagnose a patient with chronic kidney disease. Pharmacy Creatinine Clearance (Chem 58.44 [facility] Platelet mean volume Auto (B ld) [Entitic vol]Ordered By: Sharath Marques on 11-01-2021 Platelet mean volume (Bld) [Entitic vol] 9.8 fL 6.3-10.7 [facility] Platelet poor plasma interna tional normalized ratio (INR) by coagulation assay (relatOrdered By: Sharath Marques on 11-01-2021 INR Coag (PPP) [Relative time] 1.5 {INR} [facility] Comment on above: INR Therapeutic Rang e A) Pre- and Peroperative OAT started two weeks before surgery. NOT HIP SURGERY: 1.5 - 2.5 HIP SURGERY: 2 - 3 B) Primary and secondary prevention of venous THROMBOSIS: 2 - 3 C) Active venous thrombosis, pulmonary embolism and prevention of recurrent venous thrombosis: 2 - 3 D) Prevention of arterial thromboembolism including patients with mechanical heart valves: 3 - 4.5 INR Therapeutic Rang e A) Pre- and Peroperative OAT started two weeks before surgery. NOT HIP SURGERY: 1.5 - 2.5 HIP SURGERY: 2 - 3B) Primary and secondary prevention of venous THROMBOSIS: 2 - 3C) Active venous thrombosis, pulmonary embolismand prevention of recurrent venous thrombosis: 2 - 3D) Prevention of arterial thromboembolismincluding patients with mechanical heart valves: 3 - 4.5 Platelets Auto (Bld) [#/Vol] Ordered By: Sharath Marques on 11-01-2021 Platelets (Bld) [#/Vol] 57 10*3/uL 150-450 [facility] Protein [Mass/volume] in Ser um or PlasmaOrdered By: Sharath Marques on 11-01-2021 Protein [Mass/Vol] 4.4 g/dL 6.1-7.9 [facility] RBC Auto (Bld) [#/Vol]Ordere d By: Sharath Marques on 11-01-2021 RBC (Bld) [#/Vol] 2.86 10*6/uL 3.60-5.00 [facility] Serum or plasma alanine momin otransferase measurement without P-5'-P (enzymatic activiOrdered By: Sharath Marques on 11-01-2021 ALT No additional P-5'-P [Catalytic activity/Vol] 38 U/L 10-60 [facility] Serum or plasma albumin/glob ulin mass ratioOrdered By: Sharath Marques on 11-01-2021 Albumin/Globulin [Mass ratio] 1.4 {ratio} [facility] Serum or plasma alkaline artie sphatase measurement (enzymatic activity/volume)Ordered By: Sharath Marques on 11-01-2021 ALP [Catalytic activity/Vol] 89 U/L 32-92 [facility] Serum or plasma aspartate am inotransferase measurement (enzymatic activity/volume)Ordered By: Sharath Marques on 11-01-2021 AST [Catalytic activity/Vol] 51 U/L 10-42 [facility] Serum or plasma calcium summer urement (mass/volume)Ordered By: Sharath Marques on 11-01-2021 Calcium [Mass/Vol] 8.6 mg/dL 8.2-10.2 [facility] Serum or plasma chloride moose surement (moles/volume)Ordered By: Sharath Marques on 11-01-2021 Chloride [Moles/Vol] 97 mmol/L 95-114 [facility] Serum or plasma glucose summer urement (mass/volume)Ordered By: Sharath Marques on 11-01-2021 Glucose [Mass/Vol] 108 mg/dL 70-100 [facility] Comment on above: ADA recommended refe rence range Random Glucose Reference Range is dependent on time and content of last meal. Glucose of more than 200 mg/dL in a nonstressed, ambulatory subject supports the diagnosis of Diabetes Mellitus. ADA recommended refe rence rangeRandom Glucose Reference Range is dependent on time and content of last meal. Glucose of more than 200 mg/dL in a nonstressed, ambulatory subject supports the diagnosis of Diabetes Mellitus. Serum or plasma non-glucuron idated bilirubin measurement (mass/volume)Ordered By: Sharath Marques on 11-01-2021 Bilirubin.indirect [Mass/Vol] 2.9 mg/dL [facility] Serum or plasma potassium me asurement (moles/volume)Ordered By: Sharath Marques on 11-01-2021 Potassium [Moles/Vol] 3.9 mmol/L 3.5-5.1 [facility] Serum or plasma sodium measu rement (moles/volume)Ordered By: Sharath Marques on 11-01-2021 Sodium [Moles/Vol] 130 mmol/L 136-146 [facility] Serum or plasma total biliru bin measurement (mass/volume)Ordered By: Sharath Marques on 11-01-2021 Bilirubin [Mass/Vol] 3.6 mg/dL 0.3-1.2 [facility] Comment on above: Samples from patient s who have taken Naproxen have shown spurious elevation in Total Bilirubin levels. A metabolite of Naproxen, O-desmethylnaproxen, has been shown to interfere with the Jendrassik-Grof method for measuring Total Bilirubin. Serum or plasma total carbon dioxide measurement (moles/volume)Ordered By: Sharath Marques on 11-01-2021 CO2 [Moles/Vol] 26.8 mmol/L 22.0-30.0 [facility] Serum or plasma urea nitroge n measurement (mass/volume)Ordered By: Sharath Marques on 11-01-2021 Urea nitrogen [Mass/Vol] 14 mg/dL 9 [facility] Monocyte %Ordered By: Umair Marques on 10-31-2021 Monocyte % 28 umol/L [facility] No Panel InformationOrdered By: Sharath Marques on 10-31-2021 Bedside Glucose Comment See comment [facility] Comment on above: Glu2: WILL NOTIFY DR /RN No Panel InformationOrdered By: Sharath Marques on 10-30-2021 Bedside Glucose #2 Comment Cleaned meter [facility] Macrocytes detectionOrdered By: Sharath Marques on 10-28-2021 Macrocytes Ql (Bld) Slight [facility] No Panel InformationOrdered By: Sharath Marques on 10-28-2021 Platelet Estimate Decreased Normal [facility] Platelet Morphology Comment Normal Normal [facility] Ovalocyte detectionOrdered B y: Sharath Marques on 10-28-2021 Ovalocytes LM Ql (Bld) Slight [facility] RBC morphologyOrdered By: Oleg Marques on 10-28-2021 RBC morphology finding Nom (Bld) N/A [facility] Urine culture routineOrdered By: Sharath Marques on 10-27-2021 Bacteria identified Cx Nom (U) No Growth 2 Days [facility] Glucose mean value [Mass/vol ume] in Blood Estimated from glycated hemoglobinOrdered By: Sharath Marques on 10-26-2021 Average glucose Estimated from glycated hemoglobin (Bld) [Mass/Vol] 171 mg/dL [facility] Hemoglobin A1c percentageOrd ered By: Sharath Marques on 10-26-2021 HbA1c (Bld) [Mass fraction] 7.6 % 4.3-5.6 [facility] Comment on above: Increased risk for d iabetes: 5.7 - 6.4 diabetes: >6.4 glycemic control for adults with diabetes: <7.0 Increased risk for d iabetes: 5.7 - 6.4diabetes: >6.4glycemic control for adults with diabetes: <7.0 No Panel InformationOrdered By: Sharath Marques on 10-26-2021 Large Platelets Slight [facility] Activated partial thrombopla stin time (aPTT) in platelet poor plasma by coagulation aOrdered By: Sharath Marques on 10-25-2021 aPTT Coag (PPP) [Time] 48.1 s 25.1-36.5 [facility] Automated erythrocytes count in urine sediment (number/area)Ordered By: Sharath Marques on 10-25-2021 RBC Auto (Urine sed) [#/Area] Innumerable [HPF] 0-4 [facility] Automated leukocytes count i n urine sediment (number/area)Ordered By: Sharath Marques on 10-25-2021 WBC Auto (Urine sed) [#/Area] 1-2 [HPF] 0-4 [facility] Bilirubin Auto test strip Ql (U)Ordered By: Sharath Marques on 10-25-2021 Bilirubin Ql (U) Negative Negative [facility] CARDIAC WILBER 3-6on 2 CK [Catalytic activity/Vol] 116 U/L Normal 26-192 [facility] Comment on above: Performed By: #### C MP, BNP, HSTROPN #### [facility] [address] [place] [address] [address] Ray Thompson CK.MB [Mass/Vol] 0.64 ng/mL Normal <=3.60 [facility] Comment on above: Performed By: #### C MP, BNP, HSTROPN #### [facility] [address] [place] [address] [address] Ray Thompson HSTROP 37.1 pg/mL Normal 4.0-51.3 [facility] Comment on above: Result Comment: CUT- OFF POINTS HAVE BEEN ESTABLISHED BASED ON THE FOURTH UNIVERSAL DEFINITIONS OF MYOCARDIAL INFARCTION. THE UPPER REFERENCE LIMIT (URL) OF TROPONIN, DEFINED THE 99TH PERCENTILE OF cTnI DISTRIBUTION IN A REFERENCE POPULATION, HAS BEEN CONFIRMED THE DECISION THRESHOLD FOR ID DIAGNOSIS. Performed By: #### C MP, BNP, HSTROPN #### [facility] [address] [place] [address] Dr. Ray Thompson CARDIAC WILBER ADMITon 022 CK [Catalytic activity/Vol] 82 U/L Normal 26-192 [facility] Comment on above: Performed By: #### P OCGLUC #### [facility] [address] [place] [address] Dr. Ray Thompson CK.MB [Mass/Vol] ng/mL Normal <=3.60 [facility] Comment on above: Performed By: #### P OCGLUC #### [facility] [address] [place] [address] Dr. Ray Thompson HSTROP 21.1 pg/mL Normal 4.0-51.3 [facility] Comment on above: Result Comment: CUT- OFF POINTS HAVE BEEN ESTABLISHED BASED ON THE FOURTH UNIVERSAL DEFINITIONS OF MYOCARDIAL INFARCTION. THE UPPER REFERENCE LIMIT (URL) OF TROPONIN, DEFINED THE 99TH PERCENTILE OF cTnI DISTRIBUTION IN A REFERENCE POPULATION, HAS BEEN CONFIRMED THE DECISION THRESHOLD FOR ID DIAGNOSIS. Performed By: #### P OCGLUC #### [facility] [address] [place] [address] Dr. Ray Thompson LELIA 94 ng/mL Critically high 9-82 [facility] Comment on above: Performed By: #### P OCGLUC #### [facility] [address] [place] [address] Dr. Ray Thompson CBC W MANUAL DIFFon 10-26-19 22 ATYPICAL LYMPH # Normal [facility] Comment on above: Performed By: #### C MP #### [facility] [address] [place] [address] Dr. Ray Thompson ATYPICAL LYMPH % Normal [facility] Comment on above: Performed By: #### C MP #### [facility] [address] [address] [address] Ray Thompson BAND # 0.0 103/ul Normal 0.0-0.3 [facility] Comment on above: Performed By: #### C MP #### [facility] [address] [place] [address] Dr. Ray Thompson BAND % 2 % Normal 0-5 [facility] Comment on above: Performed By: #### C MP #### [facility] [address] [place] [address] Dr. Ray Thompson BASOM # 0.00 103/ul Normal 0.00-0.10 [facility] Comment on above: Performed By: #### C MP #### [facility] [address] [place] [address] Dr. Ray Thompson BASOM % 0.0 % Critically low 0.2-2.0 [facility] Comment on above: Performed By: #### C MP #### [facility] [address] [place] [address] Dr. Ray Thompson BLAST # Normal [facility] Comment on above: Performed By: #### C MP #### [facility] [address] [place] [address] Dr. Ray Thompson BLAST % Normal [facility] Comment on above: Performed By: #### C MP #### [facility] [address] [place] [address] Dr. Ray Thompson CORRECTED WBC Normal 4.0-11.0 [facility] Comment on above: Performed By: #### C MP #### [facility] [address] [place] [address] Dr. Ray Thompson EOS # 0.02 103/ul Normal 0.00-0.70 [facility] Comment on above: Performed By: #### C MP #### [facility] [address] [place] [address] Dr. Ray Thompson EOS% 1.0 % Normal 0.9-7.0 [facility] Comment on above: Performed By: #### C MP #### [facility] [address] [address] [address] Ray Thompson HCT 32.3 % Critically low 36.0-48.0 [facility] Comment on above: Performed By: #### C MP #### [facility] [address] [place] [address] Dr. Ray Thompson HGB 11.7 g/dl Critically low 12.0-16.0 [facility] Comment on above: Performed By: #### C MP #### [facility] [address] [address] [address] Ray Thompson LYMPHM # 0.29 103/ul Critically low 1.20-3.80 [facility] Comment on above: Performed By: #### C MP #### [facility] [address] [place] [address] Dr. Ray Thompson LYMPHM% 17.0 % Critically low 20.5-60.0 [facility] Comment on above: Performed By: #### C MP #### [facility] [address] [place] [address] Dr. Ray Thompson MCH 35.1 pg Critically high 26.7-34.0 [facility] Comment on above: Performed By: #### C MP #### [facility] [address] [place] [address] Dr. Ray Thompson MCHC 36.2 g/dl Critically high 29.9-35.2 [facility] Comment on above: Performed By: #### C MP #### [facility] [address] [place] [address] Dr. Ray Thompson MCV 97.0 fL Normal 81.0-99.0 [facility] Comment on above: Performed By: #### C MP #### [facility] [address] [place] [address] Dr. Ray Thompson METAMYELOCYTE # Normal [facility] Comment on above: Performed By: #### C MP #### [facility] [address] [place] [address] Dr. Ray Thompson METAMYELOCYTE % Normal [facility] Comment on above: Performed By: #### C MP #### [facility] [address] [address] [address] Ray Thompson MONOM# 0.26 103/ul Critically low 0.30-0.80 [facility] Comment on above: Performed By: #### C MP #### [facility] [address] [address] [address] Ray Thompson MONOM% 15.0 % Critically high 1.7-12.0 [facility] Comment on above: Performed By: #### C MP #### [facility] [address] [address] [address] Ray Thompson MPV 11.5 fL Normal 9.5-13.5 [facility] Comment on above: Performed By: #### C MP #### [facility] [address] [place] [address] Dr. Ray Thompson MYELOCYTE # Normal [facility] Comment on above: Performed By: #### C MP #### [facility] [address] [place] [address] Dr. Ray Thompson MYELOCYTE % Normal [facility] Comment on above: Performed By: #### C MP #### [facility] [address] [place] [address] Dr. Ray Thompson NRBC Normal [facility] Comment on above: Performed By: #### C MP #### [facility] [address] [address] [address] Ray Thompson PLT 40 103/ul Critically low 150-450 [facility] Comment on above: Performed By: #### C MP #### [facility] [address] [address] [address] Ray Thompson RBC 3.33 106/ul Critically low 4.20-5.40 [facility] Comment on above: Performed By: #### C MP #### [facility] [address] [address] [address] Ray Thompson RDW 13.2 % Normal 11.0-15.0 [facility] Comment on above: Performed By: #### C MP #### [facility] [address] [place], [place] [address] Dr. Ray Thompson SEG # 1.10 103/ul Critically low 1.40-6.50 [facility] Comment on above: Performed By: #### C MP #### [facility] [address] [id number] Ray Thompson SEG % 65.0 % Normal 43.0-75.0 [facility] Comment on above: Performed By: #### C MP #### [facility] [id number] Ray Thompson WBC 1.7 103/ul Critically low 4.0-11.0 [facility] Comment on above: Performed By: #### C MP #### [facility] [address] [address] [address] biopsyOrdered By: Tiera Marques on 10-25-2021 Transferrin [Mass/Vol] 154 mg/dL 180-380 [facility] Covid-19 PCR (CVDTBH)on 10-02 SARS-CoV-2 (COVID-19) RNA SEAN+probe Ql (Unsp spec) Detected Critically abnormal NOT DETECTED [facility] Comment on above: Result Comment: This test is not yet approved or cleared by the [place] FDA. When there are no FDA-approved or cleared tests available, and other criteria are met, FDA can make tests available under an emergency access mechanism called an Emergency Use Authorization (EUA). The EUA for this test is supported by the [employer] and Human Service's declaration that circumstances exist to justify the emergency use of in vitro diagnostics for the detection and/or diagnosis of the virus that causes COVID-19. This EUA will remain in effect for the duration of the COVID-19 declaration justifying emergency of IVDs, unless it is terminated or revoked by the FDA (after which the test may no longer be used). Performed By: #### C MP #### [facility] [id number] Ray Thompson ER URINE PROFILEon 2 Bilirubin Ql (U) Negative Normal NEGATIVE [facility] Comment on above: Performed By: #### U MICRO, ERUR #### [facility] [address] [address] [address] Ray Thompson Clarity (U) CLEAR Normal CLEAR [facility] Comment on above: Performed By: #### U MICRO, ERUR #### [facility] [address] [address] [address] Ray Thompson Color (U) YELLOW Normal YELLOW [facility] Comment on above: Performed By: #### U MICRO, ERUR #### [facility] [address] [address] [address] Ray Thompson ERUAHD A micrscopic examina tion will be performed if indicated. Normal [facility] Comment on above: Performed By: #### U MICRO, ERUR #### [facility] [address] [address] [address] Ray Thompson Glucose Ql (U) Negative Normal NEGATIVE [facility] Comment on above: Performed By: #### U MICRO, ERUR #### [facility] [address] [address] [address] Ray Thompson Hemoglobin Ql (U) LARGE Abnormal NEGATIVE [facility] Comment on above: Performed By: #### U MICRO, ERUR #### [facility] [address] [address] [address] Ray Thompson Ketones Ql (U) 15 mg/dl Abnormal NEGATIVE [facility] Comment on above: Performed By: #### U MICRO, ERUR #### [facility] [address] [address] [address] Ray Thompson LEUKOCYTES Negative Normal NEGATIVE [facility] Comment on above: Performed By: #### U MICRO, ERUR #### [facility] [address] [address] [address] Ray Thompson Nitrite Ql (U) Negative Normal NEGATIVE [facility] Comment on above: Performed By: #### U MICRO, ERUR #### [facility] [address] [address] [address] Ray Thompson pH (U) 5.5 [pH] Normal 5-9 [facility] Comment on above: Performed By: #### U MICRO, ERUR #### [facility] [address] [address] [address] Ray Thompson SPEC GRAVITY 1.020 Normal 1.005-<=1. 025 [facility] Comment on above: Performed By: #### U MICRO, ERUR #### [facility] [address] [address] [address] Ray Thompson UA PROTEIN Negative Normal NEGATIVE/ TRACE [facility] Comment on above: Performed By: #### U MICRO, ERUR #### [facility] [address] [address] [address] Ray Thompson UR MICRO IND INDICATED Normal [facility] Comment on above: Performed By: #### U MICRO, ERUR #### [facility] [address] [address] [address] Ray Thompson Urobilinogen Qn (U) 0.2 {Donita'U}/dL Normal 0.2 - 1. 0 [facility] [facility] Comment on above: Performed By: #### U MICRO, ERUR #### [facility] [address] [address] [address] Ray Thompson Ferritin [Mass/volume] in Se rum or PlasmaOrdered By: Sharath Marques on 10-25-2021 Ferritin [Mass/Vol] 417.2 ng/mL 11-306.8 [facility] Folate [Mass/volume] in Seru m or PlasmaOrdered By: Sharath Marques on 10-25-2021 Folate [Mass/Vol] ng/mL >5.9 [facility] Comment on above: Folate reference ran ge: >5.9 ng/ml The WHO technical consultation on folate and vitamin b12 deficiencies has determined that folate concentrations less than 4 ng/ml are considered deficient. Folate reference ran ge: >5.9 ng/mlThe WHO technical consultation on folate and vitamin [id number] has determined that folate concentrations lessthan 4 ng/ml are considered deficient. Iron [Mass/volume] in Serum or PlasmaOrdered By: Sharath Marques on 10-25-2021 Iron [Mass/Vol] 99 ug/dL 40-150 [facility] Iron binding capacity [Mass/ volume] in Serum or PlasmaOrdered By: Sharath Marques on 10-25-2021 Iron binding capacity [Mass/Vol] 216 ug/dL 255-450 [facility] Ketones Auto test strip (U) [Mass/Vol]Ordered By: Sharath Marques on 10-25-2021 Ketones (U) [Mass/Vol] Negative Negative [facility] - Chemistry and C hemistry - challengeOrdered By: Sharath Marques on 10-25-2021 Cobalamin (Vitamin B12) [Mass/Vol] 2446 pg/mL 180-914 [facility] Magnesium [Mass/Vol] 1.5 mg/dL 1.6-2.6 [facility] - UrinalysisOrder ed By: Sharath Marques on 10-25-2021 Hyaline casts LM Ql (Urine sed) None seen [LPF] 0-8 [facility] No Panel InformationOrdered By: Sharath Marques on 10-25-2021 25-Hydroxy Vitamin D Total 110.6 ng/mL 30-100 [facility] Comment on above: VITAMIN D STATUS 25( [place])VITAMIN D RANGE (ng/mL) Deficient <20 Insufficient 20 to <30 Sufficient 30 to 100 Reference: Mariola Encarnacion, Jerzy GLASS, et al. Evaluation,treatment, and prevention of vitamin D deficiency; an Endocrine Society clinical practice guideline. JCEM. 2010; 96(7):1911-30. VITAMIN D STATUS 25( [place])VITAMIN D RANGE (ng/mL) Deficient <20 Insufficient 20 to <30Sufficient 30 to 100Reference: Mariola Encarnacion, Jerzy GLASS, et al. Evaluation,treatment, and prevention of vitamin D deficiency; an Endocrine Society clinical practice guideline. JCEM. 2010; 96(7):1911-30. PROF CHEM 8 (BAS METB)on Anion gap [Moles/Vol] 12.8 mmol/L Normal [facility] Comment on above: Performed By: #### P OCGLUC #### [facility] [address] [address] [address] Ray Thompson Calcium [Mass/Vol] 8.7 mg/dL Normal 8.5-10.1 [facility] Comment on above: Performed By: #### P OCGLUC #### [facility] [address] [address] [address] Ray Thompson Chloride [Moles/Vol] 99 mmol/L Normal 98-107 [facility] Comment on above: Performed By: #### P OCGLUC #### [facility] [address] [address] [address] Ray Thompson CO2 [Moles/Vol] 20.8 mmol/L Critically low 21.0-32.0 [facility] Comment on above: Performed By: #### P OCGLUC #### [facility] [address] [place] [address] Dr. Ray Thompson Creatinine [Mass/Vol] 0.82 mg/dL Normal 0.55-1.02 [facility] Comment on above: Performed By: #### P OCGLUC #### [facility] [address] [address] [address] Ray Thompson EGFR-AF NIGERIEN >60 Normal >=60 [facility] Comment on above: Performed By: #### P OCGLUC #### [facility] [address] [address] [address] Ray Thompson EGFR-NON AF NIGERIEN >60 Normal >=60 [facility] Comment on above: Performed By: #### P OCGLUC #### [facility] [address] [address] [address] Ray Thompson Glucose [Mass/Vol] 265 mg/dL Critically high 74-106 [facility] Comment on above: Performed By: #### P OCGLUC #### [facility] [address] [address] [address] Ray Thompson Potassium [Moles/Vol] 4.6 mmol/L Normal 3.5-5.1 [facility] Comment on above: Performed By: #### P OCGLUC #### [facility] [address] [place] [address] Dr. Ray Thompson Sodium [Moles/Vol] 128 mmol/L Critically low 136-145 [facility] Comment on above: Performed By: #### P OCGLUC #### [facility] [address] [place] [address] Dr. Ray Thompson Urea nitrogen [Mass/Vol] 17.0 mg/dL Normal 7.0-18.0 [facility] Comment on above: Performed By: #### P OCGLUC #### [facility] [address] [place] [address] Dr. Ray Thompson Urea nitrogen/Creatinine [Mass ratio] 20.7 mg/mg Normal [facility] Comment on above: Performed By: #### P OCGLUC #### [facility] [address] [place] [address] Dr. Ray Thompson PROTIMEon 10-25-2021 INR Coag (PPP) [Relative time] 1.31 {INR} Normal [facility] Comment on above: Performed By: #### C MP, BNP, HSTROPN #### [facility] [address] [place] [address] Dr. Ray Thompson INR GUIDELINES SEE BELOW Normal [facility] Comment on above: Result Comment: CRYSTAL RED INR: 2.0 - 3.0 CONDITIONS NOT LISTED BELOW 2.5 - 3.5 FOR PROSTHETIC HEART VALVE REPLACEMENT 2.5 - 3.5 RECURRENT THROMBOSIS Performed By: #### C MP, BNP, HSTROPN #### [facility] [address] [place] [address] Dr. Ray Thompson PT Coag (PPP) [Time] 13.9 s Critically high 9.0-11.6 [facility] Comment on above: Performed By: #### C MP, BNP, HSTROPN #### [facility] [address] [place] [address] Dr. Ray Thompson Protein Auto test strip (U) [Mass/Vol]Ordered By: Sharath Marques on 10-25-2021 Protein (U) [Mass/Vol] Trace mg/dL Negative [facility] Serum or plasma prealbumin m easurement (mass/volume)Ordered By: Sharath Marques on 10-25-2021 Prealbumin [Mass/Vol] 6.0 mg/dL 18.0-38.0 [facility] Squamous epithelial cells de tection in urine sediment by light microscopyOrdered By: Sharath Marques on 10-25-2021 Epithelial cells.squamous LM Ql (Urine sed) None seen [HPF] 0-2 [facility] TSH DL <= 0.005 mIU/L QnOrde red By: Sharath Marques on 10-25-2021 TSH Qn 1.69 m[IU]/L 0.45-5.33 [facility] URINE MICROSCOPIC ONLYon BACTERIA NONE SEEN Normal NONE SEEN [facility] Comment on above: Performed By: #### U MICRO, ERUR #### [facility] [address] [place] [address] Dr. Ray Thompson Bacteria identified Cx Nom (U) NOT INDICATED Normal [facility] Comment on above: Performed By: #### U MICRO, ERUR #### [facility] [address] [place] [address] Dr. Ray Thompson CAST NONE SEEN Normal NONE SEEN [facility] Comment on above: Performed By: #### U MICRO, ERUR #### [facility] [address] [address] [address] Ray Thompson Crystals LM Nom (Urine sed) NONE SEEN Normal NONE SEEN [facility] Comment on above: Performed By: #### U MICRO, ERUR #### [facility] [address] [address] [address] Ray Thompson Epithelial cells LM Ql (Urine sed) RARE Normal NONE SEEN /RARE [facility] Comment on above: Performed By: #### U MICRO, ERUR #### [facility] [address] [place] [address] Dr. Ray Thompson MUCOUS NONE SEEN Normal NONE SEEN [facility] Comment on above: Performed By: #### U MICRO, ERUR #### [facility] [address] [place] [address] Dr. Ray Thompson RBC 10-20 Abnormal 0-2 [facility] Comment on above: Performed By: #### U MICRO, ERUR #### [facility] [address] [address] [address] Ray Thompson WBC 0-2 Abnormal NONE SEEN [facility] Comment on above: Performed By: #### U MICRO, ERUR #### [facility] [address] [address] [address] Ray Thompson Urine appearanceOrdered By: Sharath Marques on 10-25-2021 Appearance (U) Clear Clear [facility] Urine bacteria detection by automated methodOrdered By: Sharath Marques on 10-25-2021 Bacteria Auto Ql (U) None seen None Seen [facility] Urine colorOrdered By: Courtney Marques on 10-25-2021 Color (U) Yellow Yellow [facility] Urine glucose measurement by automated test strip (mass/volume)Ordered By: Sharath Marques on 10-25-2021 Glucose Auto test strip (U) [Mass/Vol] 250 mg/dL Normal [facility] Urine hemoglobin detection b y automated test stripOrdered By: Sharath Marques on 10-25-2021 Hemoglobin Auto test strip Ql (U) 3+ Negative [facility] Urine leukocyte esterase det ection by automated test stripOrdered By: Sharath Marques on 10-25-2021 Leukocyte esterase Auto test strip Ql (U) Negative Negative [facility] Urine nitrite detection by a utomated test stripOrdered By: Sharath Marques on 10-25-2021 Nitrite Auto test strip Ql (U) Negative Negative [facility] Urobilinogen Auto test strip (U) [Mass/Vol]Ordered By: Sharath Marques on 10-25-2021 Urobilinogen (U) [Mass/Vol] Normal mg/dL Normal [facility] XR CHEST 1 Von 10-25-2021 XR CHEST 1 V EXAMINATION: XR CHES T 1 V HISTORY: Pain ; left femur fracture COMPARISON: XR chest 04/01/2021 FINDINGS: LUNGS: Mild bilateral hilar prominence. Small patchy opacity within right lung base. Hyperexpanded lungs. VASCULATURE: No increased pulmonary vasculature. PLEURA: No pneumothorax, effusion, or pleural thickening. CARDIAC: No cardiomegaly or cardiac silhouette abnormality. MEDIASTINUM: No visible mass or adenopathy. BONES: No fracture or visible bone lesion. OTHER: Negative. IMPRESSION: 1. Hyperexpanded lungs suggestive COPD. 2. Bilateral hilar prominence, nonspecific but suggestive of pulmonary hypertension. 3. Small opacity within the right lung base; atelectasis versus infectious etiology versus mass. Clearing of previously seen right basilar infiltrates. 4. Consider follow-up chest x-ray to document clearing versus nonemergent CT imaging of the chest for further evaluation. Electronically authenticated by: RORY RUEDA Date: 2021-10-25 06:59 Normal [facility] XR HIP LT 2 3V W PELVISon XR HIP LT 2 3V W PELVIS EXAM: XR HIP LT 2 3V W PELVIS HISTORY: Pain COMPARISON: None. TECHNIQUE: One view of the pelvis and 2 views of the left hip were obtained. FINDINGS: There is a mildly comminuted, impacted, and varus angulated left intertrochanteric femur fracture. The femoral heads are well-seated in the acetabula. There are mild degenerative changes of both sacroiliac joints. There are [id number] degenerative changes of the pubic symphysis and the hip joints. There is generalized osteopenia. IMPRESSION: 1. Mildly comminuted, impacted, and varus angulated left intertrochanteric femur fracture. Electronically authenticated by: Madelaine MACK Date: 2021-10-25 06:43 Normal [facility] XR WRIST LT MIN 3 Von 2021 XR WRIST LT MIN 3 V EXAM: XR WRIST LT ID N 3 V HISTORY: Pain COMPARISON: None. TECHNIQUE: 3 views of the left wrist were obtained. FINDINGS: No acute fracture or dislocation is seen. There is generalized osteopenia. There are advanced degenerative changes of the basal joints of the left thumb. IMPRESSION: 1. No acute fracture or dislocation of the left wrist is seen. If pain persists, repeat radiographs are recommended in 7-10 days. Electronically authenticated by: Madelaine MACK Date: 2021-10-25 06:45 Normal [facility] pH Auto test strip (U)Ordere d By: Sharath Marques on 10-25-2021 pH (U) 1.030 [pH] 1.001-1.03 0 [facility] pH (U) 5.5 [pH] 5.0-9.0 [facility] AMMONIAon 10-14-2021 Ammonia (P) [Moles/Vol] 33 umol/L Critically high - [facility] Comment on above: Performed By: #### A MM #### [facility] [address] [place] [address] Dr. Ray Thompson AMMONIAon 09-01-2021 Ammonia (P) [Moles/Vol] 106 umol/L Critically high - [facility] Comment on above: Performed By: #### P OCGLUC #### [facility] [address] [place] [address] Dr. Ray Thompson AMMONIAon 06-16-2021 Ammonia (P) [Moles/Vol] 73 umol/L Critically high 10- [facility] Comment on above: Performed By: #### A MM #### [facility] [address] [place] [address] Dr. Ray Thompson AMMONIAon 05-19-2021 Ammonia (P) [Moles/Vol] 93 umol/L Critically high -30 [facility] Comment on above: Result Comment: Test Repeated. Criticall Value Verified Performed By: #### A MM #### [facility] [address] [place] [address] Dr. Ray Thompson CBC W MANUAL DIFFon 05-13-19 22 ATYPICAL LYMPH # Normal [facility] Comment on above: Performed By: #### C BCCM #### [facility] [address] [place] [address] Dr. Ray Thompson ATYPICAL LYMPH % Normal [facility] Comment on above: Performed By: #### C JANEL #### [facility] [address] [place] [address] Dr. Ray Thompson BAND # 0.0 103/ul Normal 0.0-0.3 [facility] Comment on above: Performed By: #### C JANEL #### [facility] [address] [place] [address] Dr. Ray Thompson BAND % 1 % Normal 0-5 [facility] Comment on above: Performed By: #### C JANEL #### [facility] [address] [place] [address] Dr. Ray Thompson BASOM # 0.00 103/ul Normal 0.00-0.10 [facility] Comment on above: Performed By: #### C JANEL #### [facility] [address] [place] [address] Dr. Ray Thompson BASOM % 0.0 % Critically low 0.2-2.0 [facility] Comment on above: Performed By: #### C JANEL #### [facility] [address] [place] [address] Dr. Ray Thompson BLAST # Normal [facility] Comment on above: Performed By: #### C JANEL #### [facility] [address] [place] [address] Dr. Ray Thompson BLAST % Normal [facility] Comment on above: Performed By: #### C JANEL #### [facility] [address] [place] [address] Dr. Ray Thompson CORRECTED WBC Normal 4.0-11.0 [facility] Comment on above: Performed By: #### C JANEL #### [facility] [address] [place] [address] Dr. Ray Thompson EOS # 0.00 103/ul Normal 0.00-0.70 [facility] Comment on above: Performed By: #### C JANEL #### [facility] [address] [place] [address] Dr. Ray Thompson EOS% 0.0 % Critically low 0.9-7.0 [facility] Comment on above: Performed By: #### C JANEL #### [facility] [address] [place] [address] Dr. Ray Thompson HCT 35.2 % Critically low 36.0-48.0 [facility] Comment on above: Performed By: #### C JANEL #### [facility] [address] [address] [address] Ray Thompson HGB 12.0 g/dl Normal 12.0-16.0 [facility] Comment on above: Performed By: #### C JANEL #### [facility] [address] [address] [address] Ray Thompson LYMPHM # 0.63 103/ul Critically low 1.20-3.80 [facility] Comment on above: Performed By: #### C JANEL #### [facility] [address] [address] [address] Ray Thompson LYMPHM% 33.0 % Normal 20.5-60.0 [facility] Comment on above: Performed By: #### C JANEL #### [facility] [address] [place] [address] Dr. Ray Thompson MCH 35.4 pg Critically high 26.7-34.0 [facility] Comment on above: Performed By: #### C JANEL #### [facility] [address] [place] [address] Dr. Ray Thompson MCHC 34.1 g/dl Normal 29.9-35.2 [facility] Comment on above: Performed By: #### C JANEL #### [facility] [address] [place] [address] Dr. Ray Thompson MCV 103.8 fL Critically high 81.0-99.0 [facility] Comment on above: Performed By: #### C JANEL #### [facility] [address] [place] [address] Dr. Ray Thompson METAMYELOCYTE # Normal [facility] Comment on above: Performed By: #### C JANEL #### [facility] [address] [place] [address] Dr. Ray Thompson METAMYELOCYTE % Normal [facility] Comment on above: Performed By: #### C JANEL #### [facility] [address] [address] [address] Ray Thompson MONOM# 0.17 103/ul Critically low 0.30-0.80 [facility] Comment on above: Performed By: #### C JANEL #### [facility] [address] [place] [address] Dr. Ray Thompson MONOM% 9.0 % Normal 1.7-12.0 [facility] Comment on above: Performed By: #### C JNAEL #### [facility] [address] [place] [address] Dr. Ray Thompson MPV 11.0 fL Normal 9.5-13.5 [facility] Comment on above: Performed By: #### C BCCM #### [facility] [address] [place] [address] Dr. Ray Thompson MYELOCYTE # Normal [facility] Comment on above: Performed By: #### C JANEL #### [facility] [address] [place] [address] Dr. Ray Thompson MYELOCYTE % Normal [facility] Comment on above: Performed By: #### C JANEL #### [facility] [address] [place] [address] Dr. Ray Thompson NRBC Normal [facility] Comment on above: Performed By: #### C JANEL #### [facility] [address] [place] [address] Dr. Ray Thompson PLT 50 103/ul Critically low 150-450 [facility] Comment on above: Performed By: #### C JANEL #### [facility] [address] [place] [address] Dr. Ray Thompson RBC 3.39 106/ul Critically low 4.20-5.40 [facility] Comment on above: Performed By: #### C JANEL #### [facility] [address] [place] [address] Dr. Ray Thompson RDW 14.4 % Normal 11.0-15.0 [facility] Comment on above: Performed By: #### C JANEL #### [facility] [address] [place] [address] Dr. Ray Thompson SEG # 1.08 103/ul Critically low 1.40-6.50 [facility] Comment on above: Performed By: #### C BCMAN #### [facility] [address] [place] [address] Dr. Ray Thompson SEG % 57.0 % Normal 43.0-75.0 [facility] Comment on above: Performed By: #### C BCMAN #### [facility] [address] [place] [address] Dr. Ray Thompson WBC 1.9 103/ul Critically low 4.0-11.0 [facility] Comment on above: Performed By: #### C JANEL #### [facility] [address] [place] [address] Dr. Ray Thompson FERRITINon 05-13-2021 Ferritin [Mass/Vol] 439.0 ng/mL Critically high 11.1-264.0 [facility] Comment on above: Performed By: #### P OCGLUC #### [facility] [address] [place] [address] Dr. Ray Thompson IRONon 05-13-2021 Iron [Mass/Vol] 119.0 ug/dL Normal 37.0-170.0 [facility] Comment on above: Performed By: #### P OCGLUC #### [facility] [address] [place] [address] Dr. Ray Thompson CBC AUTO DIFFon 04-15-2021 BASO # 0.0 103/ul Normal 0.0-0.1 [facility] Comment on above: Performed By: #### U MICRO, ERUR #### [facility] [address] [place] [address] Dr. Ray Thompson Basophils/100 WBC (Bld) 0.3 % Normal 0.2-2.0 [facility] Comment on above: Performed By: #### U MICRO, ERUR #### [facility] [address] [place] [address] Dr. Ray Thompson EO # 0.1 103/ul Normal 0.0-0.7 [facility] Comment on above: Performed By: #### U MICRO, ERUR #### [facility] [address] [address] [address] Ray Thompson Eosinophils/100 WBC (Bld) 3.6 % Normal 0.9-7.0 [facility] Comment on above: Performed By: #### U MICRO, ERUR #### [facility] [address] [place] [address] Dr. Ray Thompson Erythrocyte distribution width (RBC) [Ratio] 14.8 % Normal 11.0-15.0 [facility] Comment on above: Performed By: #### U MICRO, ERUR #### [facility] [address] [place] [address] Dr. Ray Thompson Hematocrit (Bld) [Volume fraction] 34.4 % Critically low 36.0-48.0 [facility] Comment on above: Performed By: #### U MICRO, ERUR #### [facility] [address] [place] [address] Dr. Ray Thompson Hemoglobin (Bld) [Mass/Vol] 11.8 g/dL Critically low 12.0-16.0 [facility] Comment on above: Performed By: #### U MICRO, ERUR #### [facility] [address] [place] [address] Dr. Ray Thompson IG # 0.01 10e3/ul Normal 0.00-0.03 [facility] Comment on above: Performed By: #### U MICRO, ERUR #### [facility] [address] [place] [address] Dr. Ray Thompson IG % 0.3 % Normal 0.0-0.5 [facility] Comment on above: Performed By: #### U MICRO, ERUR #### [facility] [address] [place] [address] Dr. Ray Thompson LYMPH # 0.9 103/ul Critically low 1.2-3.8 [facility] Comment on above: Performed By: #### U MICRO, ERUR #### [facility] [address] [place] [address] Dr. Ray Thompson Lymphocytes/100 WBC (Bld) 25.9 % Normal 20.5-60.0 [facility] Comment on above: Performed By: #### U MICRO, ERUR #### [facility] [address] [place] [address] Dr. Ray Thompson MANUAL DIFF REQ NO Normal [facility] Comment on above: Performed By: #### U MICRO, ERUR #### [facility] [address] [place] [address] Dr. Ray Thompson MCH (RBC) [Entitic mass] 35.1 pg Critically high 26.7-34.0 [facility] Comment on above: Performed By: #### U MICRO, ERUR #### [facility] [address] [place] [address] Dr. Ray Thompson MCHC (RBC) [Mass/Vol] 34.3 g/dL Normal 29.9-35.2 [facility] Comment on above: Performed By: #### U MICRO, ERUR #### [facility] [address] [place] [address] Dr. Ray Thompson MCV (RBC) [Entitic vol] 102.4 fL Critically high 81.0-99.0 [facility] Comment on above: Performed By: #### U MICRO, ERUR #### [facility] [address] [place] [address] Dr. Ray Thompson MONO # 0.4 103/ul Normal 0.3-0.8 [facility] Comment on above: Performed By: #### U MICRO, ERUR #### [facility] [address] [place] [address] Dr. Ray Thompson Monocytes/100 WBC (Bld) 12.2 % Critically high 1.7-12.0 [facility] Comment on above: Performed By: #### U MICRO, ERUR #### [facility] [address] [place] [address] Dr. Ray Thompson NEUT # 1.9 103/ul Normal 1.4-6.5 [facility] Comment on above: Performed By: #### U MICRO, ERUR #### [facility] [address] [place] [address] Dr. Ray Thompson Neutrophils/100 WBC (Bld) 57.7 % Normal 43.0-75.0 [facility] Comment on above: Performed By: #### U MICRO, ERUR #### [facility] [address] [place] [address] Dr. Ray Thompson Platelet mean volume (Bld) [Entitic vol] 11.0 fL Normal 9.5-13.5 [facility] Comment on above: Performed By: #### U MICRO, ERUR #### [facility] [address] [address] [address] Ray Thompson PLT 41 103/ul Critically low 150-450 [facility] Comment on above: Performed By: #### U MICRO, ERUR #### [facility] [address] [place] [address] Dr. Ray Thompson RBC 3.36 106/ul Critically low 4.20-5.40 [facility] Comment on above: Performed By: #### U MICRO, ERUR #### [facility] [address] [place] [address] Dr. Ray Thompson WBC 3.4 103/ul Critically low 4.0-11.0 [facility] Comment on above: Performed By: #### U MICRO, ERUR #### [facility] [address] [place] [address] Dr. Ray Thompson FERRITINon 04-15-2021 Ferritin [Mass/Vol] 611.0 ng/mL Critically high 11.1-264.0 [facility] Comment on above: Performed By: #### A MM #### [facility] [address] [place] [address] Dr. Ray Thompson IRONon 04-15-2021 Iron [Mass/Vol] 111.0 ug/dL Normal 37.0-170.0 [facility] Comment on above: Performed By: #### A MM #### [facility] [address] [place] [address] Dr. Ray Thompson CBC W MANUAL DIFFon 04-05-19 22 ATYPICAL LYMPH # Normal [facility] Comment on above: Performed By: #### C MP, BNP, HSTROPN #### [facility] [address] [place] [address] Dr. Ray Thompson ATYPICAL LYMPH % Normal [facility] Comment on above: Performed By: #### C MP, BNP, HSTROPN #### [facility] [address] [place] [address] Dr. Ray Thompson BAND # Normal 0.0-0.3 [facility] Comment on above: Performed By: #### C MP, BNP, HSTROPN #### [facility] [address] [place] [address] Dr. Ray Thompson BAND % Normal 0-5 [facility] Comment on above: Performed By: #### C MP, BNP, HSTROPN #### [facility] [address] [place] [address] Dr. Ray Thompson BASOM # 0.00 103/ul Normal 0.00-0.10 [facility] Comment on above: Performed By: #### C MP, BNP, HSTROPN #### [facility] [address] [place] [address] Dr. Ray Thompson BASOM % 0.0 % Critically low 0.2-2.0 [facility] Comment on above: Performed By: #### C MP, BNP, HSTROPN #### [facility] [address] [place] [address] Dr. Ray Thompson BLAST # Normal [facility] Comment on above: Performed By: #### C MP, BNP, HSTROPN #### [facility] [address] [place] [address] Dr. Ray Thompson BLAST % Normal [facility] Comment on above: Performed By: #### C MP, BNP, HSTROPN #### [facility] [address] [place] [address] Dr. Ray Thompson CORRECTED WBC Normal 4.0-11.0 [facility] Comment on above: Performed By: #### C MP, BNP, HSTROPN #### [facility] [address] [place] [address] Dr. Ray Thompson EOS # 0.00 103/ul Normal 0.00-0.70 [facility] Comment on above: Performed By: #### C MP, BNP, HSTROPN #### [facility] [address] [place] [address] Dr. Ray Thompson EOS% 0.0 % Critically low 0.9-7.0 [facility] Comment on above: Performed By: #### C MP, BNP, HSTROPN #### [facility] [address] [place] [address] Dr. Ray Thompson HCT 31.7 % Critically low 36.0-48.0 [facility] Comment on above: Performed By: #### C MP, BNP, HSTROPN #### [facility] [address] [place] [address] Dr. Ray Thompson HGB 10.8 g/dl Critically low 12.0-16.0 [facility] Comment on above: Performed By: #### C MP, BNP, HSTROPN #### [facility] [address] [place] [address] Dr. Ray Thompson LYMPHM # 0.17 103/ul Critically low 1.20-3.80 [facility] Comment on above: Performed By: #### C MP, BNP, HSTROPN #### [facility] [address] [place] [address] Dr. Ray Thompson LYMPHM% 3.0 % Critically low 20.5-60.0 [facility] Comment on above: Performed By: #### C MP, BNP, HSTROPN #### [facility] [address] [place] [address] Dr. Ray Thompson MACROCYTOSIS SLIGHT Normal [facility] Comment on above: Performed By: #### C MP, BNP, HSTROPN #### [facility] [address] [place] [address] Dr. Ray Thompson MCH 34.5 pg Critically high 26.7-34.0 [facility] Comment on above: Performed By: #### C MP, BNP, HSTROPN #### [facility] [address] [address] [address] Ray Thompson MCHC 34.1 g/dl Normal 29.9-35.2 [facility] Comment on above: Performed By: #### C MP, BNP, HSTROPN #### [facility] [address] [place] [address] Dr. Ray Thompson MCV 101.3 fL Critically high 81.0-99.0 [facility] Comment on above: Performed By: #### C MP, BNP, HSTROPN #### [facility] [address] [place] [address] Dr. Ray Thompson METAMYELOCYTE # Normal [facility] Comment on above: Performed By: #### C MP, BNP, HSTROPN #### [facility] [address] [place] [address] Dr. Ray Thompson METAMYELOCYTE % Normal [facility] Comment on above: Performed By: #### C MP, BNP, HSTROPN #### [facility] [address] [place] [address] Dr. Ray Thompson MONOM# 0.22 103/ul Critically low 0.30-0.80 [facility] Comment on above: Performed By: #### C MP, BNP, HSTROPN #### [facility] [address] [place] [address] Dr. Ray Thompson MONOM% 4.0 % Normal 1.7-12.0 [facility] Comment on above: Performed By: #### C MP, BNP, HSTROPN #### [facility] [address] [place] [address] Dr. Ray Thompson MPV 11.3 fL Normal 9.5-13.5 [facility] Comment on above: Performed By: #### C MP, BNP, HSTROPN #### [facility] [address] [place] [address] Dr. Ray Thompson MYELOCYTE # Normal [facility] Comment on above: Performed By: #### C MP, BNP, HSTROPN #### [facility] [address] [place] [address] Dr. Ray Thompson MYELOCYTE % Normal [facility] Comment on above: Performed By: #### C MP, BNP, HSTROPN #### [facility] [address] [place] [address] Dr. Ray Thompson NRBC Normal [facility] Comment on above: Performed By: #### C MP, BNP, HSTROPN #### [facility] [address] [address] [address] Ray Thompson PLT 65 103/ul Critically low 150-450 [facility] Comment on above: Performed By: #### C MP, BNP, HSTROPN #### [facility] [address] [address] [address] Ray Thompson RBC 3.13 106/ul Critically low 4.20-5.40 [facility] Comment on above: Performed By: #### C MP, BNP, HSTROPN #### [facility] [address] [place] [address] Dr. Ray Thompson RDW 13.7 % Normal 11.0-15.0 [facility] Comment on above: Performed By: #### C MP, BNP, HSTROPN #### [facility] [address] [place] [address] Dr. Ray Thompson SEG # 5.12 103/ul Normal 1.40-6.50 [facility] Comment on above: Performed By: #### C MP, BNP, HSTROPN #### [facility] [address] [place] [address] Dr. Ray Thompson SEG % 93.0 % Critically high 43.0-75.0 [facility] Comment on above: Performed By: #### C MP, BNP, HSTROPN #### [facility] [address] [place] [address] Dr. Ray Thompson WBC 5.5 103/ul Normal 4.0-11.0 [facility] Comment on above: Performed By: #### C MP, BNP, HSTROPN #### [facility] [address] [place] [address] Dr. Ray Thompson POINT OF CARE GLUCOSEon Glucose [Mass/Vol] 431 mg/dL Critically high 74-106 [facility] Comment on above: Performed By: #### P OCGLUC #### [facility] [address] [address] [address] Ray Thompson PROF 14(COMP METB)on Albumin [Mass/Vol] 2.2 g/dL Critically low 3.5-5.0 [facility] Comment on above: Performed By: #### P OCGLUC #### [facility] [address] [address] [address] Ray Thompson Albumin/Globulin [Mass ratio] 0.8 {ratio} Normal [facility] Comment on above: Performed By: #### P OCGLUC #### [facility] [address] [place] [address] Dr. Ray Thompson ALP [Catalytic activity/Vol] 83 U/L Normal 38-126 [facility] Comment on above: Performed By: #### P OCGLUC #### [facility] [address] [address] [address] Ray Thompson ALT [Catalytic activity/Vol] 34 U/L Normal 9-52 [facility] Comment on above: Performed By: #### P OCGLUC #### [facility] [address] [address] [address] Ray Thompson Anion gap [Moles/Vol] 13.2 mmol/L Normal [facility] Comment on above: Performed By: #### P OCGLUC #### [facility] [address] [address] [address] Ray Thompson AST [Catalytic activity/Vol] 44 U/L Critically high 14-36 [facility] Comment on above: Performed By: #### P OCGLUC #### [facility] [address] [address] [address] Ray Thompson Bilirubin [Mass/Vol] 1.7 mg/dL Critically high 0.2-1.3 [facility] Comment on above: Performed By: #### P OCGLUC #### [facility] [address] [address] [address] Ray Thompson Calcium [Mass/Vol] 8.3 mg/dL Critically low 8.4-10.2 [facility] Comment on above: Performed By: #### P OCGLUC #### [facility] [address] [address] [address] Ray Thompson Chloride [Moles/Vol] 96 mmol/L Critically low 98-107 [facility] Comment on above: Performed By: #### P OCGLUC #### [facility] [address] [place] [address] Dr. Ray Thompson CO2 [Moles/Vol] 22.8 mmol/L Normal 22.0-30.0 [facility] Comment on above: Performed By: #### P OCGLUC #### [facility] [address] [place] [address] Dr. Ray Thompson Creatinine [Mass/Vol] 0.72 mg/dL Normal 0.52-1.04 [facility] Comment on above: Performed By: #### P OCGLUC #### [facility] [address] [address] [address] Ray Thompson EGFR-AF NIGERIEN >98 Normal >=60 [facility] Comment on above: Performed By: #### P OCGLUC #### [facility] [address] [place] [address] Dr. Ray Thomspon EGFR-NON AF NIGERIEN >60 Normal >=60 [facility] Comment on above: Performed By: #### P OCGLUC #### [facility] [address] [address] [address] Ray Thompson Globulin (S) [Mass/Vol] 2.9 g/dL Normal [facility] Comment on above: Performed By: #### P OCGLUC #### [facility] [address] [place] [address] Dr. Ray Thompson Glucose [Mass/Vol] 428 mg/dL Critically high 74-106 [facility] Comment on above: Performed By: #### P OCGLUC #### [facility] [address] [place] [address] Dr. Ray Thompson Potassium [Moles/Vol] 5.0 mmol/L Normal 3.4-5.0 [facility] Comment on above: Performed By: #### P OCGLUC #### [facility] [address] [place] [address] Dr. Ray Thompson Protein [Mass/Vol] 5.1 g/dL Critically low 6.1-8.2 [facility] Comment on above: Performed By: #### P OCGLUC #### [facility] [address] [place] [address] Dr. Ray Thompson Sodium [Moles/Vol] 127 mmol/L Critically low 137-145 [facility] Comment on above: Performed By: #### P OCGLUC #### [facility] [address] [place] [address] Dr. Ray Thompson Urea nitrogen [Mass/Vol] 20.0 mg/dL Critically high 7.0-17.0 [facility] Comment on above: Performed By: #### P OCGLUC #### [facility] [address] [place] [address] Dr. Ray Thompson Urea nitrogen/Creatinine [Mass ratio] 27.8 mg/mg Normal [facility] Comment on above: Performed By: #### P OCGLUC #### [facility] [address] [place] [address] Dr. Ray Thompson CBC AUTO DIFFon 04-04-2021 BASO # 0.0 103/ul Normal 0.0-0.1 [facility] Comment on above: Performed By: #### C MP #### [facility] [address] [place] [address] Dr. Ray Thompson Basophils/100 WBC (Bld) 0.2 % Normal 0.2-2.0 [facility] Comment on above: Performed By: #### C MP #### [facility] [address] [place] [address] Dr. Ray Thompson EO # 0.0 103/ul Normal 0.0-0.7 [facility] Comment on above: Performed By: #### C MP #### [facility] [address] [place] [address] Dr. Ray Thompson Eosinophils/100 WBC (Bld) 0.0 % Critically low 0.9-7.0 [facility] Comment on above: Performed By: #### C MP #### [facility] [address] [address] [address] Ray Thompson Erythrocyte distribution width (RBC) [Ratio] 13.4 % Normal 11.0-15.0 [facility] Comment on above: Performed By: #### C MP #### [facility] [address] [place] [address] Dr. Ray Thompson Hematocrit (Bld) [Volume fraction] 29.5 % Critically low 36.0-48.0 [facility] Comment on above: Performed By: #### C MP #### [facility] [address] [place] [address] Dr. Ray Thompson Hemoglobin (Bld) [Mass/Vol] 10.2 g/dL Critically low 12.0-16.0 [facility] Comment on above: Performed By: #### C MP #### [facility] [address] [place] [address] Dr. Ray Thompson IG # 0.04 10e3/ul Critically high 0.00-0.03 [facility] Comment on above: Performed By: #### C MP #### [facility] [address] [place] [address] Dr. Ray Thompson IG % 0.6 % Critically high 0.0-0.5 [facility] Comment on above: Performed By: #### C MP #### [facility] [address] [place] [address] Dr. Ray Thompson LYMPH # 0.2 103/ul Critically low 1.2-3.8 [facility] Comment on above: Performed By: #### C MP #### [facility] [address] [place] [address] Dr. Ray Thompson Lymphocytes/100 WBC (Bld) 2.9 % Critically low 20.5-60.0 [facility] Comment on above: Performed By: #### C MP #### [facility] [address] [place] [address] Dr. Ray Thompson MANUAL DIFF REQ NO Normal [facility] Comment on above: Performed By: #### C MP #### [facility] [address] [place] [address] Dr. Ray Thompson MCH (RBC) [Entitic mass] 34.7 pg Critically high 26.7-34.0 [facility] Comment on above: Performed By: #### C MP #### [facility] [address] [place] [address] Dr. Ray Thompson MCHC (RBC) [Mass/Vol] 34.6 g/dL Normal 29.9-35.2 [facility] Comment on above: Performed By: #### C MP #### [facility] [address] [place] [address] Dr. Ray Thompson MCV (RBC) [Entitic vol] 100.3 fL Critically high 81.0-99.0 [facility] Comment on above: Performed By: #### C MP #### [facility] [address] [place] [address] Dr. Ray Thompson MONO # 0.2 103/ul Critically low 0.3-0.8 [facility] Comment on above: Performed By: #### C MP #### [facility] [address] [place] [address] Dr. Ray Thompson Monocytes/100 WBC (Bld) 3.5 % Normal 1.7-12.0 [facility] Comment on above: Performed By: #### C MP #### [facility] [address] [place] [address] Dr. Ray Thompson NEUT # 6.1 103/ul Normal 1.4-6.5 [facility] Comment on above: Performed By: #### C MP #### [facility] [address] [place] [address] Dr. Ray Thompson Neutrophils/100 WBC (Bld) 92.8 % Critically high 43.0-75.0 [facility] Comment on above: Performed By: #### C MP #### [facility] [address] [place] [address] Dr. Ray Thompson Platelet mean volume (Bld) [Entitic vol] 11.6 fL Normal 9.5-13.5 [facility] Comment on above: Performed By: #### C MP #### [facility] [address] [place] [address] Dr. Ray Thomspon PLT 64 103/ul Critically low 150-450 [facility] Comment on above: Performed By: #### C MP #### [facility] [address] [address] [address] Ray Thompson RBC 2.94 106/ul Critically low 4.20-5.40 [facility] Comment on above: Performed By: #### C MP #### [facility] [address] [place] [address] Dr. Ray Thompson WBC 6.6 103/ul Normal 4.0-11.0 [facility] Comment on above: Performed By: #### C MP #### [facility] [address] [place] [address] Dr. Ray Thompson POINT OF CARE GLUCOSEon Glucose [Mass/Vol] 198 mg/dL Critically high 74-106 [facility] Comment on above: Performed By: #### P OCGLUC #### [facility] [address] [place] [address] Dr. Ray Thompson Glucose [Mass/Vol] 387 mg/dL Critically high 74-106 [facility] Comment on above: Performed By: #### C MP #### [facility] [address] [place] [address] Dr. Ray Thompson Glucose [Mass/Vol] 418 mg/dL Critically high 74-106 [facility] Comment on above: Performed By: #### C MP #### [facility] [address] [place] [address] Dr. Ray Thompson Glucose [Mass/Vol] 443 mg/dL Critically high 74-106 [facility] Comment on above: Performed By: #### U MICRO, ERUR #### [facility] [address] [place] [address] Dr. Ray Thompson PROF 14(COMP METB)on 022 Albumin [Mass/Vol] 2.3 g/dL Critically low 3.5-5.0 [facility] Comment on above: Performed By: #### U MICRO, ERUR #### [facility] [address] [address] [address] Ray Thompson Albumin/Globulin [Mass ratio] 0.7 {ratio} Normal [facility] Comment on above: Performed By: #### U MICRO, ERUR #### [facility] [address] [address] [address] Ray Thompson ALP [Catalytic activity/Vol] 89 U/L Normal 38-126 [facility] Comment on above: Performed By: #### U MICRO, ERUR #### [facility] [address] [address] [address] Ray Thompson ALT [Catalytic activity/Vol] 28 U/L Normal 9-52 [facility] Comment on above: Performed By: #### U MICRO, ERUR #### [facility] [address] [address] [address] Ray Thompson Anion gap [Moles/Vol] 12.8 mmol/L Normal [facility] Comment on above: Performed By: #### U MICRO, ERUR #### [facility] [address] [address] [address] Ray Thompson AST [Catalytic activity/Vol] 36 U/L Normal 14-36 [facility] Comment on above: Performed By: #### U MICRO, ERUR #### [facility] [address] [address] [address] Ray Thompson Bilirubin [Mass/Vol] 1.5 mg/dL Critically high 0.2-1.3 [facility] Comment on above: Performed By: #### U MICRO, ERUR #### [facility] [address] [address] [address] Ray Thompson Calcium [Mass/Vol] 8.5 mg/dL Normal 8.4-10.2 [facility] Comment on above: Performed By: #### U MICRO, ERUR #### [facility] [address] [address] [address] Ray Thompson Chloride [Moles/Vol] 99 mmol/L Normal 98-107 [facility] Comment on above: Performed By: #### U MICRO, ERUR #### [facility] [address] [address] [address] Ray Thompson CO2 [Moles/Vol] 23.9 mmol/L Normal 22.0-30.0 [facility] Comment on above: Performed By: #### U MICRO, ERUR #### [facility] [address] [address] [address] Ray Thompson Creatinine [Mass/Vol] 1.05 mg/dL Critically high 0.52-1.04 [facility] Comment on above: Performed By: #### U MICRO, ERUR #### [facility] [address] [place] [address] Dr. Ray Thompson EGFR-AF NIGERIEN >60 Normal >=60 [facility] Comment on above: Performed By: #### U MICRO, ERUR #### [facility] [address] [address] [address] Ray Thompson EGFR-NON AF NIGERIEN 52 mL/min/1.73m2 Critically low >=60 [facility] Comment on above: Performed By: #### U MICRO, ERUR #### [facility] [address] [address] [address] Ray Thompson Globulin (S) [Mass/Vol] 3.3 g/dL Normal [facility] Comment on above: Performed By: #### U MICRO, ERUR #### [facility] [address] [address] [address] Ray Thompson Glucose [Mass/Vol] 384 mg/dL Critically high 74-106 [facility] Comment on above: Performed By: #### U MICRO, ERUR #### [facility] [address] [address] [address] Ray Thompson Potassium [Moles/Vol] 3.7 mmol/L Normal 3.4-5.0 [facility] Comment on above: Performed By: #### U MICRO, ERUR #### [facility] [address] [address] [address] Ray Thompson Protein [Mass/Vol] 5.6 g/dL Critically low 6.1-8.2 [facility] Comment on above: Performed By: #### U MICRO, ERUR #### [facility] [address] [address] [address] Ray Thompson Sodium [Moles/Vol] 132 mmol/L Critically low 137-145 [facility] Comment on above: Performed By: #### U MICRO, ERUR #### [facility] [address] [address] [address] Ray Thompson Urea nitrogen [Mass/Vol] 20.0 mg/dL Critically high 7.0-17.0 [facility] Comment on above: Performed By: #### U MICRO, ERUR #### [facility] [address] [place] [address] Dr. Ray Thompson Urea nitrogen/Creatinine [Mass ratio] 19.0 mg/mg Normal [facility] Comment on above: Performed By: #### U MICRO, ERUR #### [facility] [address] [address] [address] Ray Thompson Albumin [Mass/Vol] 2.3 g/dL Critically low 3.5-5.0 [facility] Comment on above: Performed By: #### C MP #### [facility] [address] [place] [address] Dr. Ray Thompson Albumin/Globulin [Mass ratio] 0.8 {ratio} Normal [facility] Comment on above: Performed By: #### C MP #### [facility] [address] [place] [address] Dr. Ray Thompson ALP [Catalytic activity/Vol] 86 U/L Normal 38-126 [facility] Comment on above: Performed By: #### C MP #### [facility] [address] [address] [address] Ray Thopmson ALT [Catalytic activity/Vol] 25 U/L Normal 9-52 [facility] Comment on above: Performed By: #### C MP #### [facility] [address] [address] [address] Ray Thompson Anion gap [Moles/Vol] 13.6 mmol/L Normal [facility] Comment on above: Performed By: #### C MP #### [facility] [address] [address] [address] Ray Thompson AST [Catalytic activity/Vol] 36 U/L Normal 14-36 [facility] Comment on above: Performed By: #### C MP #### [facility] [address] [address] [address] Ray Thompson Bilirubin [Mass/Vol] 1.7 mg/dL Critically high 0.2-1.3 [facility] Comment on above: Performed By: #### C MP #### [facility] [address] [address] [address] Ray Thompson Calcium [Mass/Vol] 8.5 mg/dL Normal 8.4-10.2 [facility] Comment on above: Performed By: #### C MP #### [facility] [address] [address] [address] Ray Thompson Chloride [Moles/Vol] 96 mmol/L Critically low 98-107 [facility] Comment on above: Performed By: #### C MP #### [facility] [address] [address] [address] Ray Thompson CO2 [Moles/Vol] 21.6 mmol/L Critically low 22.0-30.0 [facility] Comment on above: Performed By: #### C MP #### [facility] [address] [address] [address] Ray Thompson Creatinine [Mass/Vol] 0.63 mg/dL Normal 0.52-1.04 [facility] Comment on above: Performed By: #### C MP #### [facility] [address] [address] [address] Ray Thompson EGFR-AF NIGERIEN >60 Normal >=60 [facility] Comment on above: Performed By: #### C MP #### [facility] [address] [address] [address] Ray Thompson EGFR-NON AF NIGERIEN >60 Normal >=60 [facility] Comment on above: Performed By: #### C MP #### [facility] [address] [address] [address] Ray Thompson Globulin (S) [Mass/Vol] 2.9 g/dL Normal [facility] Comment on above: Performed By: #### C MP #### [facility] [address] [address] [address] Ray Thompson Glucose [Mass/Vol] 393 mg/dL Critically high 74-106 [facility] Comment on above: Performed By: #### C MP #### [facility] [address] [place] [address] Dr. Ray Thompson Potassium [Moles/Vol] 4.2 mmol/L Normal 3.4-5.0 [facility] Comment on above: Performed By: #### C MP #### [facility] [address] [place] [address] Dr. Ray Thompson Protein [Mass/Vol] 5.2 g/dL Critically low 6.1-8.2 [facility] Comment on above: Performed By: #### C MP #### [facility] [address] [place] [address] Dr. Ray Thompson Sodium [Moles/Vol] 127 mmol/L Critically low 137-145 [facility] Comment on above: Performed By: #### C MP #### [facility] [address] [place] [address] Dr. Ray Thompson Urea nitrogen [Mass/Vol] 20.0 mg/dL Critically high 7.0-17.0 [facility] Comment on above: Performed By: #### C MP #### [facility] [address] [place] [address] Dr. Ray Thompson Urea nitrogen/Creatinine [Mass ratio] 31.7 mg/mg Normal [facility] Comment on above: Performed By: #### C MP #### [facility] [address] [place] [address] Dr. Ray Thompson CBC W MANUAL DIFFon 04-03-19 22 ATYPICAL LYMPH # 0.06 103/ul Normal [facility] Comment on above: Performed By: #### P OCGLUC #### [facility] [address] [place] [address] Dr. Ray Thompson ATYPICAL LYMPH % 2 % Normal [facility] Comment on above: Performed By: #### P OCGLUC #### [facility] [address] [address] [address] Ray Thompson BAND # Normal 0.0-0.3 [facility] Comment on above: Performed By: #### P OCGLUC #### [facility] [address] [address] [address] Ray Thompson BAND % Normal 0-5 [facility] Comment on above: Performed By: #### P OCGLUC #### [facility] [address] [place] [address] Dr. Ray Thompson BASOM # 0.00 103/ul Normal 0.00-0.10 [facility] Comment on above: Performed By: #### P OCGLUC #### [facility] [address] [place] [address] Dr. Ray Thompson BASOM % 0.0 % Critically low 0.2-2.0 [facility] Comment on above: Performed By: #### P OCGLUC #### [facility] [address] [place] [address] Dr. Ray Thompson BLAST # Normal [facility] Comment on above: Performed By: #### P OCGLUC #### [facility] [address] [place] [address] Dr. Ray Thompson BLAST % Normal [facility] Comment on above: Performed By: #### P OCGLUC #### [facility] [address] [place] [address] Dr. Ray Thompson CORRECTED WBC Normal 4.0-11.0 [facility] Comment on above: Performed By: #### P OCGLUC #### [facility] [address] [place] [address] Dr. Ray Thompson EOS # 0.00 103/ul Normal 0.00-0.70 [facility] Comment on above: Performed By: #### P OCGLUC #### [facility] [address] [address] [address] Ray Thompson EOS% 0.0 % Critically low 0.9-7.0 [facility] Comment on above: Performed By: #### P OCGLUC #### [facility] [address] [address] [address] Ray Thompson HCT 30.2 % Critically low 36.0-48.0 [facility] Comment on above: Performed By: #### P OCGLUC #### [facility] [address] [address] [address] Ray Thompson HGB 10.0 g/dl Critically low 12.0-16.0 [facility] Comment on above: Performed By: #### P OCGLUC #### [facility] [address] [address] [address] Ray Thompson LYMPHM # 0.14 103/ul Critically low 1.20-3.80 [facility] Comment on above: Performed By: #### P OCGLUC #### [facility] [address] [address] [address] Ray Thompson LYMPHM% 5.0 % Critically low 20.5-60.0 [facility] Comment on above: Performed By: #### P OCGLUC #### [facility] [address] [address] [address] Ray Thompson MCH 33.7 pg Normal 26.7-34.0 [facility] Comment on above: Performed By: #### P OCGLUC #### [facility] [address] [address] [address] Ray Thompson MCHC 33.1 g/dl Normal 29.9-35.2 [facility] Comment on above: Performed By: #### P OCGLUC #### [facility] [address] [address] [address] Ray Thompson MCV 101.7 fL Critically high 81.0-99.0 [facility] Comment on above: Performed By: #### P OCGLUC #### [facility] [address] [address] [address] Ray Thompson METAMYELOCYTE # Normal [facility] Comment on above: Performed By: #### P OCGLUC #### [facility] [address] [place] [address] Dr. Ray Thompson METAMYELOCYTE % Normal [facility] Comment on above: Performed By: #### P OCGLUC #### [facility] [address] [place] [address] Dr. Ray Thompson MONOM# 0.06 103/ul Critically low 0.30-0.80 [facility] Comment on above: Performed By: #### P OCGLUC #### [facility] [address] [place] [address] Dr. Ray Thompson MONOM% 2.0 % Normal 1.7-12.0 [facility] Comment on above: Performed By: #### P OCGLUC #### [facility] [address] [place] [address] Dr. Ray Thompson MPV 11.1 fL Normal 9.5-13.5 [facility] Comment on above: Performed By: #### P OCGLUC #### [facility] [address] [place] [address] Dr. Ray Thompson MYELOCYTE # Normal [facility] Comment on above: Performed By: #### P OCGLUC #### [facility] [address] [place] [address] Dr. Ray Thompson MYELOCYTE % Normal [facility] Comment on above: Performed By: #### P OCGLUC #### [facility] [address] [place] [address] Dr. Ray Thompson NRBC Normal [facility] Comment on above: Performed By: #### P OCGLUC #### [facility] [address] [place] [address] Dr. Ray Thompson PLT 66 103/ul Critically low 150-450 [facility] Comment on above: Performed By: #### P OCGLUC #### [facility] [address] [place] [address] Dr. Ray Thompson RBC 2.97 106/ul Critically low 4.20-5.40 [facility] Comment on above: Performed By: #### P OCGLUC #### [facility] [address] [address] [address] Ray Thompson RDW 13.2 % Normal 11.0-15.0 [facility] Comment on above: Performed By: #### P OCGLUC #### [facility] [address] [address] [address] Ray Thompson SEG # 2.64 103/ul Normal 1.40-6.50 [facility] Comment on above: Performed By: #### P OCGLUC #### [facility] [address] [place] [address] Dr. Ray Thompson SEG % 91.0 % Critically high 43.0-75.0 [facility] Comment on above: Performed By: #### P OCGLUC #### [facility] [address] [place] [address] Dr. Ray Thompson WBC 2.9 103/ul Critically low 4.0-11.0 [facility] Comment on above: Performed By: #### P OCGLUC #### [facility] [address] [place] [address] Dr. Ray Thompson POINT OF CARE GLUCOSEon Glucose [Mass/Vol] 403 mg/dL Critically high 74-106 [facility] Comment on above: Performed By: #### A MM #### [facility] [address] [address] [address] Ray Thompson Glucose [Mass/Vol] 180 mg/dL Critically high 74-106 [facility] Comment on above: Performed By: #### P OCGLUC #### [facility] [address] [place] [address] Dr. Ray Thompson Glucose [Mass/Vol] 457 mg/dL Critically high 74-106 [facility] Comment on above: Performed By: #### P OCGLUC #### [facility] [address] [address] [address] Ray Thompson Glucose [Mass/Vol] 416 mg/dL Critically high 74-106 [facility] Comment on above: Performed By: #### A MM #### [facility] [address] [place] [address] Dr. Ray Thompson PROF 14(COMP METB)on 022 Albumin [Mass/Vol] 2.2 g/dL Critically low 3.5-5.0 [facility] Comment on above: Performed By: #### C MP #### [facility] [address] [place] [address] Dr. Ray Thompson Albumin/Globulin [Mass ratio] 0.7 {ratio} Normal [facility] Comment on above: Performed By: #### C MP #### [facility] [address] [place] [address] Dr. Ray Thompson ALP [Catalytic activity/Vol] 86 U/L Normal 38-126 [facility] Comment on above: Performed By: #### C MP #### [facility] [address] [place] [address] Dr. Ray Thompson ALT [Catalytic activity/Vol] 18 U/L Normal 9-52 [facility] Comment on above: Performed By: #### C MP #### [facility] [address] [place] [address] Dr. Ray Thompson Anion gap [Moles/Vol] 11.8 mmol/L Normal [facility] Comment on above: Performed By: #### C MP #### [facility] [address] [place] [address] Dr. Ray Thompson AST [Catalytic activity/Vol] 22 U/L Normal 14-36 [facility] Comment on above: Performed By: #### C MP #### [facility] [address] [place] [address] Dr. Ray Thompson Bilirubin [Mass/Vol] 2.1 mg/dL Critically high 0.2-1.3 [facility] Comment on above: Performed By: #### C MP #### [facility] [address] [place] [address] Dr. Ray Thompson Calcium [Mass/Vol] 8.0 mg/dL Critically low 8.4-10.2 [facility] Comment on above: Performed By: #### C MP #### [facility] [address] [place] [address] Dr. Ray Thompson Chloride [Moles/Vol] 100 mmol/L Normal 98-107 [facility] Comment on above: Performed By: #### C MP #### [facility] [address] [address] [address] Ray Thompson CO2 [Moles/Vol] 24.9 mmol/L Normal 22.0-30.0 [facility] Comment on above: Performed By: #### C MP #### [facility] [address] [place] [address] Dr. Ray Thompson Creatinine [Mass/Vol] 0.69 mg/dL Normal 0.52-1.04 [facility] Comment on above: Performed By: #### C MP #### [facility] [address] [place] [address] Dr. Ray Thompson EGFR-AF NIGERIEN >60 Normal >=60 [facility] Comment on above: Performed By: #### C MP #### [facility] [address] [place] [address] Dr. Ray Thompson EGFR-NON AF NIGERIEN >60 Normal >=60 [facility] Comment on above: Performed By: #### C MP #### [facility] [address] [place] [address] Dr. Ray Thompson Globulin (S) [Mass/Vol] 3.2 g/dL Normal [facility] Comment on above: Performed By: #### C MP #### [facility] [address] [place] [address] Dr. Ray Thompson Glucose [Mass/Vol] 419 mg/dL Critically high 74-106 [facility] Comment on above: Performed By: #### C MP #### [facility] [address] [place] [address] Dr. Ray Thompson Potassium [Moles/Vol] 3.7 mmol/L Normal 3.4-5.0 [facility] Comment on above: Performed By: #### C MP #### [facility] [address] [place] [address] Dr. Ray Thompson Protein [Mass/Vol] 5.4 g/dL Critically low 6.1-8.2 [facility] Comment on above: Performed By: #### C MP #### [facility] [address] [place] [address] Dr. Ray Thompson Sodium [Moles/Vol] 133 mmol/L Critically low 137-145 [facility] Comment on above: Performed By: #### C MP #### [facility] [address] [place] [address] Dr. Ray Thompson Urea nitrogen [Mass/Vol] 16.0 mg/dL Normal 7.0-17.0 [facility] Comment on above: Performed By: #### C MP #### [facility] [address] [place] [address] Dr. Ray Thompson Urea nitrogen/Creatinine [Mass ratio] 23.2 mg/mg Normal [facility] Comment on above: Performed By: #### C MP #### [facility] [address] [place] [address] Dr. Ray Thompson CBC W MANUAL DIFFon 04-02-20 ATYPICAL LYMPH # Normal [facility] Comment on above: Performed By: #### A MM #### [facility] [address] [place] [address] Dr. Ray Thompson ATYPICAL LYMPH % Normal [facility] Comment on above: Performed By: #### A MM #### [facility] [address] [place] [address] Dr. Ray Thompson BAND # 0.1 103/ul Normal 0.0-0.3 [facility] Comment on above: Performed By: #### A MM #### [facility] [address] [place] [address] Dr. Ray Thompson BAND % 2 % Normal 0-5 [facility] Comment on above: Performed By: #### A MM #### [facility] [address] [place] [address] Dr. Ray Thompson BASOM # 0.00 103/ul Normal 0.00-0.10 [facility] Comment on above: Performed By: #### A MM #### [facility] [address] [place] [address] Dr. Ray Thompson BASOM % 0.0 % Critically low 0.2-2.0 [facility] Comment on above: Performed By: #### A MM #### [facility] [address] [place] [address] Dr. Ray Thompson BLAST # Normal [facility] Comment on above: Performed By: #### A MM #### [facility] [address] [place] [address] Dr. Ray Thompson BLAST % Normal [facility] Comment on above: Performed By: #### A MM #### [facility] [address] [place] [address] Dr. Ray Thompson CORRECTED WBC Normal 4.0-11.0 [facility] Comment on above: Performed By: #### A MM #### [facility] [address] [place] [address] Dr. Ray Thompson EOS # 0.00 103/ul Normal 0.00-0.70 [facility] Comment on above: Performed By: #### A MM #### [facility] [address] [place] [address] Dr. Ray Thompson EOS% 0.0 % Critically low 0.9-7.0 [facility] Comment on above: Performed By: #### A MM #### [facility] [address] [place] [address] Dr. Ray Thompson HCT 28.0 % Critically low 36.0-48.0 [facility] Comment on above: Performed By: #### A MM #### [facility] [address] [place] [address] Dr. Ray Thompson HGB 9.6 g/dl Critically low 12.0-16.0 [facility] Comment on above: Performed By: #### A MM #### [facility] [address] [place] [address] Dr. Ray Thompson HYPOCHROMASIA 1+ Normal [facility] Comment on above: Performed By: #### A MM #### [facility] [address] [address] [address] Ray Thompson LYMPHM # 0.23 103/ul Critically low 1.20-3.80 [facility] Comment on above: Performed By: #### A MM #### [facility] [address] [address] [address] Ray Thompson LYMPHM% 5.0 % Critically low 20.5-60.0 [facility] Comment on above: Performed By: #### A MM #### [facility] [address] [address] [address] Ray Thompson MACROCYTOSIS 1+ Normal [facility] Comment on above: Performed By: #### A MM #### [facility] [address] [place] [address] Dr. Ray Thompson MCH 34.7 pg Critically high 26.7-34.0 [facility] Comment on above: Performed By: #### A MM #### [facility] [address] [place] [address] Dr. Ray Thompson MCHC 34.3 g/dl Normal 29.9-35.2 [facility] Comment on above: Performed By: #### A MM #### [facility] [address] [place] [address] Dr. Ray Thompson MCV 101.1 fL Critically high 81.0-99.0 [facility] Comment on above: Performed By: #### A MM #### [facility] [address] [place] [address] Dr. Ray Thompson METAMYELOCYTE # Normal [facility] Comment on above: Performed By: #### A MM #### [facility] [address] [place] [address] Dr. Ray Thompson METAMYELOCYTE % Normal [facility] Comment on above: Performed By: #### A MM #### [facility] [address] [place] [address] Dr. Ray Thompson MONOM# 0.23 103/ul Critically low 0.30-0.80 [facility] Comment on above: Performed By: #### A MM #### [facility] [address] [place] [address] Dr. Ray Thompson MONOM% 5.0 % Normal 1.7-12.0 [facility] Comment on above: Performed By: #### A MM #### [facility] [address] [place] [address] Dr. Ray Thompson MPV 10.7 fL Normal 9.5-13.5 [facility] Comment on above: Performed By: #### A MM #### [facility] [address] [place] [address] Dr. Ray Thompson MYELOCYTE # Normal [facility] Comment on above: Performed By: #### A MM #### [facility] [address] [place] [address] Dr. Ray Thompson MYELOCYTE % Normal [facility] Comment on above: Performed By: #### A MM #### [facility] [address] [place] [address] Dr. Ray Thompson NRBC Normal [facility] Comment on above: Performed By: #### A MM #### [facility] [address] [place] [address] Dr. Ray Thompson PLT 60 103/ul Critically low 150-450 [facility] Comment on above: Performed By: #### A MM #### [facility] [address] [place] [address] Dr. Ray Thompson RBC 2.77 106/ul Critically low 4.20-5.40 [facility] Comment on above: Performed By: #### A MM #### [facility] [address] [place] [address] Dr. Ray Thompson RDW 13.3 % Normal 11.0-15.0 [facility] Comment on above: Performed By: #### A MM #### [facility] [address] [place] [address] Dr. Ray Thompson SEG # 4.14 103/ul Normal 1.40-6.50 [facility] Comment on above: Performed By: #### A MM #### [facility] [address] [address] [address] Ray Thompson SEG % 88.0 % Critically high 43.0-75.0 [facility] Comment on above: Performed By: #### A MM #### [facility] [address] [address] [address] Ray Thompson WBC 4.7 103/ul Normal 4.0-11.0 [facility] Comment on above: Performed By: #### A MM #### [facility] [address] [address] [address] Ray Thompson CULTURE SPUTUMon 04-02-2021 CULTURE SPUTUM Culture Observations : NORMAL RESPIRATORY JOSETTE. Normal [facility] Comment on above: Performed By: #### U MICRO, ERUR #### [facility] [address] [place] [address] Dr. Ray Thompson POINT OF CARE GLUCOSEon 03-05 Glucose [Mass/Vol] 410 mg/dL Critically high [facility]106 [facility] Comment on above: Performed By: #### P OCGLUC #### [facility] [address] [address] [address] Ray Thompson Glucose [Mass/Vol] 294 mg/dL Critically high [address] [place] [address] Comment on above: Performed By: #### A MM #### [facility] [address] [place] [address] Dr. Ray Thompson Glucose [Mass/Vol] 250 mg/dL Critically high [facility]106 [facility] Comment on above: Performed By: #### U MICRO, ERUR #### [facility] [address] [address] [address] Ray Thompson PROF 14(COMP METB)on 021 Albumin [Mass/Vol] 2.2 g/dL Critically low 3.5-5.0 [facility] Comment on above: Performed By: #### U MICRO, ERUR #### [facility] [address] [address] [address] Ray Thompson Albumin/Globulin [Mass ratio] 0.9 {ratio} Normal [facility] Comment on above: Performed By: #### U MICRO, ERUR #### [facility] [address] [address] [address] Ray Thompson ALP [Catalytic activity/Vol] 86 U/L Normal 38-126 [facility] Comment on above: Performed By: #### U MICRO, ERUR #### [facility] [address] [address] [address] Ray Thompson ALT [Catalytic activity/Vol] 20 U/L Normal 9-52 [facility] Comment on above: Performed By: #### U MICRO, ERUR #### [facility] [address] [address] [address] Ray Thompson Anion gap [Moles/Vol] 12.5 mmol/L Normal [facility] Comment on above: Performed By: #### U MICRO, ERUR #### [facility] [address] [address] [address] Ray Thompson AST [Catalytic activity/Vol] 22 U/L Normal 14-36 [facility] Comment on above: Performed By: #### U MICRO, ERUR #### [facility] [address] [address] [address] Ray Thompson Bilirubin [Mass/Vol] 2.9 mg/dL Critically high 0.2-1.3 [facility] Comment on above: Performed By: #### U MICRO, ERUR #### [facility] [address] [address] [address] Ray Thompson Calcium [Mass/Vol] 7.8 mg/dL Critically low 8.4-10.2 [facility] Comment on above: Performed By: #### U MICRO, ERUR #### [facility] [address] [address] [address] Ray Thompson Chloride [Moles/Vol] 102 mmol/L Normal 98-107 [facility] Comment on above: Performed By: #### U MICRO, ERUR #### [facility] [address] [address] [address] Ray Thompson CO2 [Moles/Vol] 23.2 mmol/L Normal 22.0-30.0 [facility] Comment on above: Performed By: #### U MICRO, ERUR #### [facility] [address] [address] [address] Ray Thompson Creatinine [Mass/Vol] 0.63 mg/dL Normal 0.52-1.04 [facility] Comment on above: Performed By: #### U MICRO, ERUR #### [facility] [address] [address] [address] Ray Thompson EGFR-AF NIGERIEN >60 Normal >=60 [facility] Comment on above: Performed By: #### U MICRO, ERUR #### [facility] [address] [address] [address] Ray Thompson EGFR-NON AF NIGERIEN >60 Normal >=60 [facility] Comment on above: Performed By: #### U MICRO, ERUR #### [facility] [address] [address] [address] Ray Thompson Globulin (S) [Mass/Vol] 2.4 g/dL Normal [facility] Comment on above: Performed By: #### U MICRO, ERUR #### [facility] [address] [address] [address] Ray Thompson Glucose [Mass/Vol] 206 mg/dL Critically high 74-106 [facility] Comment on above: Performed By: #### U MICRO, ERUR #### [facility] [address] [address] [address] Ray Thompson Potassium [Moles/Vol] 3.7 mmol/L Normal 3.4-5.0 [facility] Comment on above: Performed By: #### U MICRO, ERUR #### [facility] [address] [address] [address] Ray Thompson Protein [Mass/Vol] 4.6 g/dL Critically low 6.1-8.2 [facility] Comment on above: Performed By: #### U MICRO, ERUR #### [facility] [address] [address] [address] Ray Thompson Sodium [Moles/Vol] 134 mmol/L Critically low 137-145 [facility] Comment on above: Performed By: #### U MICRO, ERUR #### [facility] [address] [place] [address] Dr. Ray Thompson Urea nitrogen [Mass/Vol] 9.0 mg/dL Normal 7.0-17.0 [facility] Comment on above: Performed By: #### U MICRO, ERUR #### [facility] [address] [place] [address] Dr. Ray Thompson Urea nitrogen/Creatinine [Mass ratio] 14.3 mg/mg Normal [facility] Comment on above: Performed By: #### U MICRO, ERUR #### [facility] [address] [place] [address] Dr. Ray Thompson AMMONIAon 04-01-2021 Ammonia (P) [Moles/Vol] 30 umol/L Normal -30 [facility] Comment on above: Performed By: #### C MP, BNP, HSTROPN #### [facility] [address] [place] [address] Dr. Ray Thompson BNPon 04-01-2021 Natriuretic peptide B (Bld) [Mass/Vol] 413.0 pg/mL Normal <=900.0 [facility] Comment on above: Performed By: #### C MP, BNP, HSTROPN #### [facility] [address] [place] [address] Dr. Ray Thompson CBC W MANUAL DIFFon 04-01-20 21 ATYPICAL LYMPH # Normal [facility] Comment on above: Performed By: #### P OCGLUC #### [facility] [address] [place] [address] Dr. Ray Thompson ATYPICAL LYMPH % Normal [facility] Comment on above: Performed By: #### P OCGLUC #### [facility] [address] [place] [address] Dr. Ray Thompson BAND # Normal 0.0-0.3 [facility] Comment on above: Performed By: #### P OCGLUC #### [facility] [address] [place] [address] Dr. Ray Thompson BAND % Normal 0-5 [facility] Comment on above: Performed By: #### P OCGLUC #### [facility] [address] [address] [address] Ray Thompson BASOM # 0.00 103/ul Normal 0.00-0.10 [facility] Comment on above: Performed By: #### P OCGLUC #### [facility] [address] [address] [address] Ray Thompson BASOM % 0.0 % Critically low 0.2-2.0 [facility] Comment on above: Performed By: #### P OCGLUC #### [facility] [address] [place] [address] Dr. Ray Thompson BLAST # Normal [facility] Comment on above: Performed By: #### P OCGLUC #### [facility] [address] [place] [address] Dr. Ray Thompson BLAST % Normal [facility] Comment on above: Performed By: #### P OCGLUC #### [facility] [address] [place] [address] Dr. Ray Thompson CORRECTED WBC Normal 4.0-11.0 [facility] Comment on above: Performed By: #### P OCGLUC #### [facility] [address] [place] [address] Dr. Ray Thompson EOS # 0.00 103/ul Normal 0.00-0.70 [facility] Comment on above: Performed By: #### P OCGLUC #### [facility] [address] [place] [address] Dr. Ray Thompson EOS% 0.0 % Critically low 0.9-7.0 [facility] Comment on above: Performed By: #### P OCGLUC #### [facility] [address] [place] [address] Dr. Ray Thompson GIANT PLATELETS SEEN Normal [facility] Comment on above: Performed By: #### P OCGLUC #### [facility] [address] [place] [address] Dr. Ray Thompson HCT 33.3 % Critically low 36.0-48.0 [facility] Comment on above: Performed By: #### P OCGLUC #### [facility] [address] [address] [address] Ray Thompson HGB 11.4 g/dl Critically low 12.0-16.0 [facility] Comment on above: Performed By: #### P OCGLUC #### [facility] [address] [address] [address] Ray Thompson LYMPHM # 0.56 103/ul Critically low 1.20-3.80 [facility] Comment on above: Performed By: #### P OCGLUC #### [facility] [address] [address] [address] Ray Thompson LYMPHM% 10.0 % Critically low 20.5-60.0 [facility] Comment on above: Performed By: #### P OCGLUC #### [facility] [address] [address] [address] Ray Thompson MCH 34.0 pg Normal 26.7-34.0 [facility] Comment on above: Performed By: #### P OCGLUC #### [facility] [address] [address] [address] Ray Thompson MCHC 34.2 g/dl Normal 29.9-35.2 [facility] Comment on above: Performed By: #### P OCGLUC #### [facility] [address] [address] [address] Ray Thompson MCV 99.4 fL Critically high 81.0-99.0 [facility] Comment on above: Performed By: #### P OCGLUC #### [facility] [address] [address] [address] aRy Thompson METAMYELOCYTE # Normal [facility] Comment on above: Performed By: #### P OCGLUC #### [facility] [address] [address] [address] Ray Thompson METAMYELOCYTE % Normal [facility] Comment on above: Performed By: #### P OCGLUC #### [facility] [address] [address] [address] Ray Thompson MONOM# 0.67 103/ul Normal 0.30-0.80 [facility] Comment on above: Performed By: #### P OCGLUC #### [facility] [address] [place] [address] Dr. Ray Thompson MONOM% 12.0 % Normal 1.7-12.0 [facility] Comment on above: Performed By: #### P OCGLUC #### [facility] [address] [address] [address] Ray Thompson MPV 10.6 fL Normal 9.5-13.5 [facility] Comment on above: Performed By: #### P OCGLUC #### [facility] [address] [place] [address] Dr. Ray Thompson MYELOCYTE # Normal [facility] Comment on above: Performed By: #### P OCGLUC #### [facility] [address] [place] [address] Dr. Ray Thompson MYELOCYTE % Normal [facility] Comment on above: Performed By: #### P OCGLUC #### [facility] [address] [place] [address] Dr. Ray Thompson NRBC 1 Normal [facility] Comment on above: Performed By: #### P OCGLUC #### [facility] [address] [place] [address] Dr. Ray Thompson PLT 72 103/ul Critically low 150-450 [facility] Comment on above: Result Comment: SLID E REVIEWED: PLATELET COUNT VERIFIED Performed By: #### P OCGLUC #### [facility] [address] [place] [address] Dr. Ray Thompson RBC 3.35 106/ul Critically low 4.20-5.40 [facility] Comment on above: Performed By: #### P OCGLUC #### [facility] [address] [place] [address] Dr. Ray Thompson RDW 13.3 % Normal 11.0-15.0 [facility] Comment on above: Performed By: #### P OCGLUC #### [facility] [address] [address] [address] Ray Thompson SEG # 4.37 103/ul Normal 1.40-6.50 [facility] Comment on above: Performed By: #### P OCGLUC #### [facility] [address] [place] [address] Dr. Ray Thompson SEG % 78.0 % Critically high 43.0-75.0 [facility] Comment on above: Performed By: #### P OCGLUC #### [facility] [address] [place] [address] Dr. Ray Thompson WBC 5.6 103/ul Normal 4.0-11.0 [facility] Comment on above: Performed By: #### P OCGLUC #### [facility] [address] [place] [address] Dr. Ray Thompson CULTURE BLOODon 04-01-2021 Microscopic examination of blood, culture Culture Observations: NO GROWTH AT 5 DAYS. Normal [facility] Comment on above: Performed By: #### U MICRO, ERUR #### [facility] [address] [place] [address] Dr. Ray Thompson Microscopic examination of blood, culture Culture Observations: NO GROWTH AT 5 DAYS. Normal [facility] Comment on above: Performed By: #### U MICRO, ERUR #### [facility] [address] [place] [address] Dr. Ray Thompson [facility] SARS-CoV-2 (COVID-19) RNA SEAN+probe Ql (Unsp spec) Not detected Normal NOT DETECTED [facility] Comment on above: Result Comment: When diagnostic testing is negative, the possibility of a false negative should be considered in the context of a patient's recent exposures and the presence of clinical signs and symptoms consistent with SARS-CoV-2. This test is not yet approved or cleared by the [place] FDA. When there are no FDA-approved or cleared tests available, and other criteria are met, FDA can make tests available under an emergency access mechanism called an Emergency Use Authorization (EUA). The EUA for this test is supported by the [employer] and Human Service's declaration that circumstances exist to justify the emergency use of in vitro diagnostics for the detection and/or diagnosis of the virus that causes COVID-19. This EUA will remain in effect for the duration of the COVID-19 declaration justifying emergency of IVDs, unless it is terminated or revoked by the FDA (after which the test may no longer be used). Performed By: #### P OCGLUC #### [facility] [address] [place] [address] Dr. Ray Thompson ER URINE PROFILEon 1 Bilirubin Ql (U) Negative Normal NEGATIVE [facility] Comment on above: Performed By: #### P OCGLUC #### [facility] [address] [place] [address] Dr. Ray Thompson Clarity (U) CLEAR Normal CLEAR [facility] Comment on above: Performed By: #### P OCGLUC #### [facility] [address] [place] [address] Dr. Ray Thompson Color (U) LT. YELLOW Normal YELLOW [facility] Comment on above: Performed By: #### P OCGLUC #### [facility] [address] [place] [address] Dr. Ray Thompson ERUAHD A micrscopic examina tion will be performed if indicated. Normal [facility] Comment on above: Performed By: #### P OCGLUC #### [facility] [address] [place] [address] Dr. Ray Thompson Glucose Ql (U) Negative Normal NEGATIVE [facility] Comment on above: Performed By: #### P OCGLUC #### [facility] [address] [place] [address] Dr. Ray Thompson Hemoglobin Ql (U) TRACE-INTACT Abnormal NEGATIVE [facility] Comment on above: Performed By: #### P OCGLUC #### [facility] [address] [place] [address] Dr. Ray Thompson Ketones Ql (U) Negative Normal NEGATIVE [facility] Comment on above: Performed By: #### P OCGLUC #### [facility] [address] [place] [address] Dr. Ray Thompson LEUKOCYTES Negative Normal NEGATIVE [facility] Comment on above: Performed By: #### P OCGLUC #### [facility] [address] [address] [address] Ray Thompson Nitrite Ql (U) Negative Normal NEGATIVE [facility] Comment on above: Performed By: #### P OCGLUC #### [facility] [address] [address] [address] Ray Thompson pH (U) 5.5 [pH] Normal 5-9 [facility] Comment on above: Performed By: #### P OCGLUC #### [facility] [address] [address] [address] Ray Thompson SPEC GRAVITY 1.010 Normal 1.005-<=1. 025 [facility] Comment on above: Performed By: #### P OCGLUC #### [facility] [address] [place] [address] Dr. Ray Thompson UA PROTEIN Negative Normal NEGATIVE/ TRACE [facility] Comment on above: Performed By: #### P OCGLUC #### [facility] [address] [address] [address] Ray Thompson UR MICRO IND INDICATED Normal [facility] Comment on above: Performed By: #### P OCGLUC #### [facility] [address] [place] [address] Dr. Ray Thompson Urobilinogen Qn (U) 0.2 {Donita'U}/dL Normal 0.2 - 1. 0 [facility] Comment on above: Performed By: #### P OCGLUC #### [facility] [address] [place] [address] Dr. Ray Thompson GLYCOHEMOGLOBIN A1Con 2020 ADA RECOMMENDATION ADA THERAPEUTIC TARG ET 6.0 - 7.0 ACTION SUGGESTED > 7.0 Normal [facility] Comment on above: Performed By: #### C MP #### [facility] [address] [place] [address] Dr. Ray Thompson Glucose [Mass/Vol] 131 mg/dL Normal [facility] Comment on above: Performed By: #### C MP #### [facility] [address] [place] [address] Dr. Ray Thompson HbA1c (Bld) [Mass fraction] 6.2 % Critically high <=6.0 [facility] Comment on above: Performed By: #### C MP #### [facility] [address] [place] [address] Dr. Ray Thompson LACTATE/LACTIC ACIDon 2020 Lactate [Moles/Vol] 3.5 mmol/L Critically high 0.7-2.0 [facility] Comment on above: Result Comment: Test repeated. Critical value verified. Performed By: #### P OCGLUC #### [facility] [address] [place] [address] Dr. Ray Thompson Lactate [Moles/Vol] 4.4 mmol/L Critically high 0.7-2.0 [facility] Comment on above: Result Comment: Test repeated. Critical value verified. Performed By: #### P OCGLUC #### [facility] [address] [place] [address] Dr. Ray Thompson POINT OF CARE GLUCOSEon 03-05 Glucose [Mass/Vol] 251 mg/dL Critically high 74-106 [facility] Comment on above: Performed By: #### P OCGLUC #### [facility] [address] [place] [address] Dr. Ray Thompson PROF 14(COMP METB)on 021 Albumin [Mass/Vol] 2.9 g/dL Critically low 3.5-5.0 [facility] Comment on above: Performed By: #### C MP, BNP, HSTROPN #### [facility] [address] [place] [address] Dr. Ray Thompson Albumin/Globulin [Mass ratio] 0.8 {ratio} Normal [facility] Comment on above: Performed By: #### C MP, BNP, HSTROPN #### [facility] [address] [place] [address] Dr. Ray Thompson ALP [Catalytic activity/Vol] 111 U/L Normal 38-126 [facility] Comment on above: Performed By: #### C MP, BNP, HSTROPN #### [facility] [address] [address] [address] Ray Thompson ALT [Catalytic activity/Vol] 22 U/L Normal 9-52 [facility] Comment on above: Performed By: #### C MP, BNP, HSTROPN #### [facility] [address] [place] [address] Dr. Ray Thompson Anion gap [Moles/Vol] 13.4 mmol/L Normal [facility] Comment on above: Performed By: #### C MP, BNP, HSTROPN #### [facility] [address] [place] [address] Dr. Ray Thompson AST [Catalytic activity/Vol] 29 U/L Normal 14-36 [facility] Comment on above: Performed By: #### C MP, BNP, HSTROPN #### [facility] [address] [place] [address] Dr. Ray Thompson Bilirubin [Mass/Vol] 3.3 mg/dL Critically high 0.2-1.3 [facility] Comment on above: Performed By: #### C MP, BNP, HSTROPN #### [facility] [address] [place] [address] Dr. Ray Thompson Calcium [Mass/Vol] 9.3 mg/dL Normal 8.4-10.2 [facility] Comment on above: Performed By: #### C MP, BNP, HSTROPN #### [facility] [address] [address] [address] Ray Thompson Chloride [Moles/Vol] 96 mmol/L Critically low 98-107 [facility] Comment on above: Performed By: #### C MP, BNP, HSTROPN #### [facility] [address] [place] [address] Dr. Ray Thompson CO2 [Moles/Vol] 25.6 mmol/L Normal 22.0-30.0 [facility] Comment on above: Performed By: #### C MP, BNP, HSTROPN #### [facility] [address] [place], [place] [id number] Dr. Ray Thompson Creatinine [Mass/Vol] 0.73 mg/dL Normal 0.52-1.04 [facility] Comment on above: Performed By: #### C MP, BNP, HSTROPN #### [facility] [address] [address] [address] Ray Thompson EGFR-AF NIGERIEN >60 Normal >=60 [facility] Comment on above: Performed By: #### C MP, BNP, HSTROPN #### [facility] [address] [place] [address] Dr. Ray Thompson EGFR-NON AF NIGERIEN >60 Normal >=60 [facility] Comment on above: Performed By: #### C MP, BNP, HSTROPN #### [facility] [address] [place] [address] Dr. Ray Thompson Globulin (S) [Mass/Vol] 3.7 g/dL Normal [facility] Comment on above: Performed By: #### C MP, BNP, HSTROPN #### [facility] [address] [place] [address] Dr. Ray Thompson Glucose [Mass/Vol] 145 mg/dL Critically high 74-106 [facility] Comment on above: Performed By: #### C MP, BNP, HSTROPN #### [facility] [address] [place] [address] Dr. Ray Thompson Potassium [Moles/Vol] 4.0 mmol/L Normal 3.4-5.0 [facility] Comment on above: Performed By: #### C MP, BNP, HSTROPN #### [facility] [address] [place] [address] Dr. Ray Thompson Protein [Mass/Vol] 6.6 g/dL Normal 6.1-8.2 [facility] Comment on above: Performed By: #### C MP, BNP, HSTROPN #### [facility] [address] [place] [address] Dr. Ray Thompson Sodium [Moles/Vol] 131 mmol/L Critically low 137-145 [facility] Comment on above: Performed By: #### C MP, BNP, HSTROPN #### [facility] [address] [place] [address] Dr. Ray Thompson Urea nitrogen [Mass/Vol] 10.0 mg/dL Normal 7.0-17.0 [facility] Comment on above: Performed By: #### C MP, BNP, HSTROPN #### [facility] [address] [place] [address] Dr. Ray Thompson Urea nitrogen/Creatinine [Mass ratio] 13.7 mg/mg Normal [facility] Comment on above: Performed By: #### C MP, BNP, HSTROPN #### [facility] [address] [place] [address] Dr. Ray Thompson PROTIMEon 04-01-2021 INR Coag (PPP) [Relative time] 1.53 {INR} Normal [facility] Comment on above: Performed By: #### A MM #### [facility] [address] [place] [address] Dr. Ray Thompson INR GUIDELINES SEE BELOW Normal [facility] Comment on above: Result Comment: CRYSTAL RED INR: 2.0 - 3.0 CONDITIONS NOT LISTED BELOW 2.5 - 3.5 FOR PROSTHETIC HEART VALVE REPLACEMENT 2.5 - 3.5 RECURRENT THROMBOSIS Performed By: #### A MM #### [facility] [address] [place] [address] Dr. Ray Thompson PT Coag (PPP) [Time] 16.1 s Critically high 9.0-11.6 [facility] Comment on above: Performed By: #### A MM #### [facility] [address] [place] [address] Dr. Ray Thompson PTTon 04-01-2021 aPTT Coag (Bld) [Time] 38.1 s Critically high 22.3-36.2 [facility] Comment on above: Performed By: #### A MM #### [facility] [address] [place] [address] Dr. Ray Thompson TROPONIN, HIGH SENSITIVITYon 04-01-2021 HSTROP 14.9 pg/mL Normal 4.0-35.5 [facility] Comment on above: Result Comment: CUT- OFF POINTS HAVE BEEN ESTABLISHED BASED ON THE FOURTH UNIVERSAL DEFINITIONS OF MYOCARDIAL INFARCTION. THE UPPER REFERENCE LIMIT (URL) OF TROPONIN, DEFINED THE 99TH PERCENTILE OF cTnI DISTRIBUTION IN A REFERENCE POPULATION, HAS BEEN CONFIRMED THE DECISION THRESHOLD FOR ID DIAGNOSIS. Performed By: #### C MP, BNP, HSTROPN #### [facility] [address] [place] [address] Dr. Ray Thompson URINE MICROSCOPIC ONLYon BACTERIA NONE SEEN Normal NONE SEEN [facility] Comment on above: Performed By: #### P OCGLUC #### [facility] [address] [place] [address] Dr. Ray Thompson Bacteria identified Cx Nom (U) NOT INDICATED Normal [facility] Comment on above: Performed By: #### P OCGLUC #### [facility] [address] [place] [address] Dr. Ray Thompson CAST SEEN Abnormal NONE SEEN [facility] Comment on above: Performed By: #### P OCGLUC #### [facility] [address] [place] [address] Dr. Ray Thompson Crystals LM Nom (Urine sed) NONE SEEN Normal NONE SEEN [facility] Comment on above: Performed By: #### P OCGLUC #### [facility] [address] [place] [address] Dr. Ray Thompson Epithelial cells LM Ql (Urine sed) RARE Normal NONE SEEN /RARE [facility] Comment on above: Performed By: #### P OCGLUC #### [facility] [address] [place] [address] Dr. Ray Thompson HYALINE CAST FEW Normal [facility] Comment on above: Performed By: #### P OCGLUC #### [facility] [address] [place] [address] Dr. Ray Thompson MUCOUS TRACE Abnormal NONE SEEN [facility] Comment on above: Performed By: #### P OCGLUC #### [facility] [address] [place] [address] Dr. Ray Thompson RBC 2-5 Abnormal 0-2 [facility] Comment on above: Performed By: #### P OCGLUC #### [facility] [address] [address] [address] Ray Thompson WBC 0-2 Abnormal NONE SEEN [facility] Comment on above: Performed By: #### P OCGLUC #### [facility] [address] [address] [address] Ray Thompson XR CHEST 1 Von 04-01-2021 XR CHEST 1 V EXAMINATION: XR CHES T 1 V HISTORY: SHORTNESS OF BREATH , cough COMPARISON: XR chest 10/17/2019 FINDINGS: LUNGS: Hyperexpanded lungs compatible with COPD. Mild patchy and strandy opacities within right lung base. Right perihilar prominence. VASCULATURE: No increased pulmonary vasculature. PLEURA: No pneumothorax, effusion, or pleural thickening. CARDIAC: No cardiomegaly or cardiac silhouette abnormality. MEDIASTINUM: No visible mass or adenopathy. BONES: Advanced degenerative changes of the right humeral head, likely old healed fracture. OTHER: Negative. IMPRESSION: 1. New moderate right basilar and infrahilar possibly representing pneumonia. 2. Clearing of previously seen left lung base infiltrates and/or pleural effusion. 3. Hyperexpanded lungs compatible with COPD. Electronically authenticated by: RORY RUEDA Date: 2021-04-01 13:03 Normal [facility] CBC W MANUAL DIFFon 03-18-20 21 ATYPICAL LYMPH # Normal [facility] Comment on above: Performed By: #### U MICRO, ERUR #### [facility] [address] [address] [address] Ray Thompson ATYPICAL LYMPH % Normal [facility] Comment on above: Performed By: #### U MICRO, ERUR #### [facility] [address] [address] [address] Ray Thompson BAND # Normal 0.0-0.3 [facility] Comment on above: Performed By: #### U MICRO, ERUR #### [facility] [address] [address] [address] Ray Thompson BAND % Normal 0-5 [facility] Comment on above: Performed By: #### U MICRO, ERUR #### [facility] [address] [address] [address] Ray Thompson BASOM # 0.00 103/ul Normal 0.00-0.10 [facility] Comment on above: Performed By: #### U MICRO, ERUR #### [facility] [address] [place] [address] Dr. Ray Thompson BASOM % 0.0 % Critically low 0.2-2.0 [facility] Comment on above: Performed By: #### U MICRO, ERUR #### [facility] [address] [place] [address] Dr. Ray Thompson BLAST # Normal [facility] Comment on above: Performed By: #### U MICRO, ERUR #### [facility] [address] [place] [address] Dr. Ray Thompson BLAST % Normal [facility] Comment on above: Performed By: #### U MICRO, ERUR #### [facility] [address] [place] [address] Dr. Ray Thompson CORRECTED WBC Normal 4.0-11.0 [facility] Comment on above: Performed By: #### U MICRO, ERUR #### [facility] [address] [place] [address] Dr. Ray Thompson EOS # 0.03 103/ul Normal 0.00-0.70 [facility] Comment on above: Performed By: #### U MICRO, ERUR #### [facility] [address] [place] [address] Dr. Ray Thompson EOS% 2.0 % Normal 0.9-7.0 [facility] Comment on above: Performed By: #### U MICRO, ERUR #### [facility] [address] [place] [address] Dr. Ray Thompson HCT 34.1 % Critically low 36.0-48.0 [facility] Comment on above: Performed By: #### U MICRO, ERUR #### [facility] [address] [place] [address] Dr. Ray Thompson HGB 11.9 g/dl Critically low 12.0-16.0 [facility] Comment on above: Performed By: #### U MICRO, ERUR #### [facility] [address] [address] [address] Ray Thompson HYPOCHROMASIA 1+ Normal [facility] Comment on above: Performed By: #### U MICRO, ERUR #### [facility] [address] [address] [address] Ray Thompson LYMPHM # 0.36 103/ul Critically low 1.20-3.80 [facility] Comment on above: Performed By: #### U MICRO, ERUR #### [facility] [address] [address] [address] Ray Thompson LYMPHM% 24.0 % Normal 20.5-60.0 [facility] Comment on above: Performed By: #### U MICRO, ERUR #### [facility] [address] [address] [address] Ray Thompson MACROCYTOSIS SLIGHT Normal [facility] Comment on above: Performed By: #### U MICRO, ERUR #### [facility] [address] [address] [address] Ray Thompson MCH 34.7 pg Critically high 26.7-34.0 [facility] Comment on above: Performed By: #### U MICRO, ERUR #### [facility] [address] [address] [address] Ray Thompson MCHC 34.1 g/dl Normal 29.9-35.2 [facility] Comment on above: Performed By: #### U MICRO, ERUR #### [facility] [address] [address] [address] Ray Thompson MCV 101.9 fL Critically high 81.0-99.0 [facility] Comment on above: Performed By: #### U MICRO, ERUR #### [facility] [address] [address] [address] Ray Thompson METAMYELOCYTE # Normal [facility] Comment on above: Performed By: #### U MICRO, ERUR #### [facility] [address] [address] [address] Ray Thompson METAMYELOCYTE % Normal [facility] Comment on above: Performed By: #### U MICRO, ERUR #### [facility] [address] [address] [address] Ray Thompson MONOM# 0.23 103/ul Critically low 0.30-0.80 [facility] Comment on above: Performed By: #### U MICRO, ERUR #### [facility] [address] [address] [address] Ray Thompson MONOM% 15.0 % Critically high 1.7-12.0 [facility] Comment on above: Performed By: #### U MICRO, ERUR #### [facility] [address] [place] [address] Dr. Ray Thompson MPV 11.6 fL Normal 9.5-13.5 [facility] Comment on above: Performed By: #### U MICRO, ERUR #### [facility] [address] [address] [address] Ray Thompson MYELOCYTE # Normal [facility] Comment on above: Performed By: #### U MICRO, ERUR #### [facility] [address] [address] [address] Ray Thompson MYELOCYTE % Normal [facility] Comment on above: Performed By: #### U MICRO, ERUR #### [facility] [address] [address] [address] Ray Thompson NRBC Normal [facility] Comment on above: Performed By: #### U MICRO, ERUR #### [facility] [address] [address] [address] Ray Thompson PLT 32 103/ul Critically low 150-450 [facility] Comment on above: Performed By: #### U MICRO, ERUR #### [facility] [address] [place] [address] Dr. Ray Thompson RBC 3.14 106/ul Critically low 4.20-5.40 [facility] Comment on above: Performed By: #### U MICRO, ERUR #### [facility] [address] [address] [address] Ray Thompson RDW 13.2 % Normal 11.0-15.0 [facility] Comment on above: Performed By: #### U MICRO, ERUR #### [facility] [address] [address] [address] Ray Thompson SEG # 0.89 103/ul Critically low 1.40-6.50 [facility] Comment on above: Performed By: #### U MICRO, ERUR #### [facility] [address] [address] [address] Ray Thompson SEG % 59.0 % Normal 43.0-75.0 [facility] Comment on above: Performed By: #### U MICRO, ERUR #### [facility] [address] [place] [address] Dr. Ray Thompson WBC 1.5 103/ul Critically low 4.0-11.0 [facility] Comment on above: Performed By: #### U MICRO, ERUR #### [facility] [address] [place] [address] Dr. Ray Thompson FERRITINon 03-18-2021 Ferritin [Mass/Vol] 500.0 ng/mL Critically high 11.1-264.0 [facility] Comment on above: Performed By: #### C MP, BNP, HSTROPN #### [facility] [address] [address] [address] Ray Thompson HEMOGLOBIN AND HEMATOCRITon 03-18-2021 Hematocrit (Bld) [Volume fraction] 34.1 % Critically low 36.0-48.0 [facility] Comment on above: Performed By: #### P OCGLUC #### [facility] [address] [address] [address] Ray Thompson Hemoglobin (Bld) [Mass/Vol] 11.9 g/dL Critically low 12.0-16.0 [facility] Comment on above: Performed By: #### P OCGLUC #### [facility] [address] [place] [address] Dr. Ray Thompson AMMONIAon 01-27-2021 Ammonia (P) [Moles/Vol] 94 umol/L Critically high 10-30 [facility] Comment on above: Result Comment: Test Repeated. Critical Value Verified Performed By: #### P OCGLUC #### [facility] [address] [place], [place] [address] Dr. Ray Thompson AMMONIAon 01-13-2021 Ammonia (P) [Moles/Vol] 87 umol/L Critically high 10-30 [facility] Comment on above: Performed By: #### C MP #### [facility] [address] [address] [address] Ray Thompson Basophils Auto (Bld) [#/Vol] Ordered By: Niko Lazo on 12-29-2020 Basophils (Bld) [#/Vol] 0.0 10*3/uL 0.0-0.2 [facility] Basophils/100 WBC Auto (Bld) Ordered By: Niko Lazo on 12-29-2020 Basophils/100 WBC (Bld) 0.5 % . [facility] Body fluid albumin measureme nt (mass/volume)Ordered By: Niko Lazo on 12-29-2020 Albumin (Body fld) [Mass/Vol] 3.1 g/dL 3.2-5.[address] [facility] [address] biopsyOrdered By: Niko ugalde on 12-29-2020 Transferrin [Mass/Vol] 144 mg/dL 180-380 [facility] Direct bilirubin measurement Ordered By: Niko Lazo on 12-29-2020 Bilirubin.direct [Mass/Vol] 0.4 mg/dL 0.0-0.4 [facility] Eosinophils Auto (Bld) [#/Vo l]Ordered By: Niko Lazo on 12-29-2020 Eosinophils (Bld) [#/Vol] 0.1 10*3/uL 0.0-0.45 [facility] Eosinophils/100 WBC Auto (Bl d)Ordered By: Niko Lazo on 12-29-2020 Eosinophils/100 WBC (Bld) 6.7 % . [facility] Erythrocyte distribution wid th Auto (RBC) [Ratio]Ordered By: Niko Lazo on 12-29-2020 Erythrocyte distribution width (RBC) [Ratio] 13.5 % 11.9-15.3 [facility] Ferritin [Mass/volume] in Se rum or PlasmaOrdered By: Niko Lazo on 12-29-2020 Ferritin [Mass/Vol] 327.7 ng/mL 11-306.8 [facility] Globulin Calc (S) [Mass/Vol] Ordered By: Niko Lazo on 12-29-2020 Globulin (S) [Mass/Vol] 2.1 g/dL [facility] Hematocrit Auto (Bld) [Volum e fraction]Ordered By: Niko Lazo on 12-29-2020 Hematocrit (Bld) [Volume fraction] 36.8 % 34.0-46.4 [facility] Hemoglobin [Mass/volume] in BloodOrdered By: Niko Lazo on 12-29-2020 Hemoglobin (Bld) [Mass/Vol] 13.0 g/dL 11.8-15.4 [facility] Iron [Mass/volume] in Serum or PlasmaOrdered By: Niko Lazo on 12-29-2020 Iron [Mass/Vol] 172 ug/dL 40-150 [facility] Iron binding capacity [Mass/ volume] in Serum or PlasmaOrdered By: Niko Lazo on 12-29-2020 Iron binding capacity [Mass/Vol] 202 ug/dL 255-450 [facility] Iron saturation [Mass Fracti on] in Serum or PlasmaOrdered By: Niko Lazo on 12-29-2020 Iron saturation [Mass fraction] 85.0 % 20-50 [facility] - Hematology and Cell countsOrdered By: Niko Lazo on 12-29-2020 Nucleated RBC/100 WBC (Bld) [Ratio] 0.1 % 0-0.5 [facility] Leukocytes [#/volume] in Blo od by Automated countOrdered By: Niko Lazo on 12-29-2020 WBC (Bld) [#/Vol] 2.2 10*3/uL 4.5-11.0 [facility] Lymphocytes Auto (Bld) [#/Vo l]Ordered By: Niko Lazo on 12-29-2020 Lymphocytes (Bld) [#/Vol] 0.7 10*3/uL 1.00-4.8 [facility] Lymphocytes/100 WBC Auto (Bl d)Ordered By: Niko Lazo on 12-29-2020 Lymphocytes/100 WBC (Bld) 31.4 % . [facility] MCH Auto (RBC) [Entitic mass ]Ordered By: Niko Lazo on 12-29-2020 MCH (RBC) [Entitic mass] 36.6 pg 24.7-34.3 [facility] MCHC Auto (RBC) [Mass/Vol]Or dered By: Niko Lazo on 12-29-2020 MCHC (RBC) [Mass/Vol] 35.3 g/dL 32.0-35.0 [facility] MCV Auto (RBC) [Entitic vol] Ordered By: Niko Lazo on 12-29-2020 MCV (RBC) [Entitic vol] 103.5 fL 80-100 [facility] Monocytes Auto (Bld) [#/Vol] Ordered By: Niko Lazo on 12-29-2020 Monocytes (Bld) [#/Vol] 0.3 10*3/uL 0.0-0.8 [facility] Monocytes/100 WBC Auto (Bld) Ordered By: Niko Lazo on 12-29-2020 Monocytes/100 WBC (Bld) 12.1 % . [facility] Neutrophils Auto (Bld) [#/Vo l]Ordered By: Niko Lazo on 12-29-2020 Neutrophils (Bld) [#/Vol] 1.1 10*3/uL 1.8-7.7 [facility] Neutrophils/100 WBC Auto (Bl d)Ordered By: Niko Lazo on 12-29-2020 Neutrophils/100 WBC (Bld) 49.3 % . [facility] No Panel InformationOrdered By: Niko Lazo on 12-29-2020 Platelet Estimate Decreased Normal [facility] Platelet Morphology Comment Normal Normal [facility] Platelet mean volume Auto (B ld) [Entitic vol]Ordered By: Niko Lazo on 12-29-2020 Platelet mean volume (Bld) [Entitic vol] 9.5 fL 6.3-10.7 [facility] Platelets Auto (Bld) [#/Vol] Ordered By: Niko Lazo on 12-29-2020 Platelets (Bld) [#/Vol] 41 10*3/uL 150-450 [facility] Protein [Mass/volume] in Ser um or PlasmaOrdered By: Niko Lazo on 12-29-2020 Protein [Mass/Vol] 5.2 g/dL 6.1-7.9 [facility] RBC Auto (Bld) [#/Vol]Ordere d By: Niko Lazo on 12-29-2020 RBC (Bld) [#/Vol] 3.56 10*6/uL 3.60-5.00 [facility] RBC morphologyOrdered By: Grayson Lazo on 12-29-2020 RBC morphology finding Nom (Bld) Normal [facility] Serum or plasma alanine momin otransferase measurement without P-5'-P (enzymatic activiOrdered By: Niko Lazo on 12-29-2020 ALT No additional P-5'-P [Catalytic activity/Vol] 31 U/L 10-60 [facility] Serum or plasma albumin/glob ulin mass ratioOrdered By: Niko Lazo on 12-29-2020 Albumin/Globulin [Mass ratio] 1.5 {ratio} [facility] Serum or plasma alkaline artie sphatase measurement (enzymatic activity/volume)Ordered By: Niko Lazo on 12-29-2020 ALP [Catalytic activity/Vol] 98 U/L 32-92 [facility] Serum or plasma aspartate am inotransferase measurement (enzymatic activity/volume)Ordered By: Niko Lazo on 12-29-2020 AST [Catalytic activity/Vol] 45 U/L 10-42 [facility] Serum or plasma non-glucuron idated bilirubin measurement (mass/volume)Ordered By: Niko Lazo on 12-29-2020 Bilirubin.indirect [Mass/Vol] 2.6 mg/dL [facility] Serum or plasma total biliru bin measurement (mass/volume)Ordered By: Niko Lazo on 12-29-2020 Bilirubin [Mass/Vol] 3.0 mg/dL 0.3-1.2 [facility] Comment on above: Samples from patient s who have taken Naproxen have shown spurious elevation in Total Bilirubin levels. A metabolite of Naproxen, O-desmethylnaproxen, has been shown to interfere with the Law method for measuring Total Bilirubin. TSH DL <= 0.005 mIU/L QnOrde red By: Niko Lazo on 12-29-2020 TSH Qn 3.17 m[IU]/L 0.45-5.33 [facility] CBC Auto Differentialon 04-0 Basophils (Bld) [#/Vol] 0.00 10*3/uL [employer] Work Phone: Basophils/100 WBC (Bld) 0 % 0 - 2 % [employer] Work Phone: Cells Counted 50 [employer] Work Phone: Differential Type NOT REPORTED [employer] Work Phone: Eosinophils (Bld) [#/Vol] 0.00 10*3/uL [employer] Work Phone: Eosinophils/100 WBC (Bld) 0 % Low 1 - 4 % [employer] Work Phone: Erythrocyte distribution width (RBC) [Ratio] 13.5 % 11.8 - 14.4 % [employer] Phone: Hematocrit (Bld) [Volume fraction] 34.5 % Low 36.3 - 47.1 % [employer] Phone: Hemoglobin (Bld) [Mass/Vol] 11.7 g/dL Low 11.9 - 15.1 g/dL [employer] Phone: Immature granulocytes (Bld) [#/Vol] 0 % 0 [employer] Phone: Immature granulocytes (Bld) [#/Vol] 0.00 10*3/uL [employer] Phone: Interpretation and review of laboratory results Abnormal [employer] Work Phone: Lymphocytes (Bld) [#/Vol] 0.72 10*3/uL Low [employer] Phone: Lymphocytes/100 WBC (Bld) 30 % 24 - 43 % [employer] Work Phone: MCH (RBC) [Entitic mass] 34.7 pg High 25.2 - 33.5 pg [email or web address] Phone: MCHC (RBC) [Mass/Vol] 33.9 g/dL 28.4 - 34.8 g/dL [employer] Phone: MCV (RBC) [Entitic vol] 102.4 fL 82.6 - 102.9 fL [employer] Phone: Monocytes (Bld) [#/Vol] 0.29 10*3/uL [employer] Work Phone: Monocytes/100 WBC (Bld) 12 % 3 - 12 % [employer] Phone: Morphology Ajay (Bld) [Interp] Normal Platelet scan shows Decreased Platelets [employer] Phone: Platelet mean volume (Bld) [Entitic vol] NOT REPORTED 8.1 - 13.5 fL [employer] Phone: Platelets (Bld) [#/Vol] See Reflexed IPF Result [employer] Work Phone: Platelets (Bld) [#/Vol] NOT REPORTED [employer] Phone: RBC (Bld) [#/Vol] 3.37 10*6/uL Low 3.95 - 5.11 m/uL [employer] Work Phone: RBC morphology finding Nom (Bld) NOT REPORTED [employer] Phone: Segmented neutrophils/100 WBC (Bld) 58 % 36 - 65 % [employer] Work Phone: Segs Absolute 1.39 Low [employer] Work Phone: WBC (Bld) [#/Vol] 0.0 10*3/uL 0.0 per 100 WBC [employer] Phone: WBC (Bld) [#/Vol] 2.4 10*3/uL Low [employer] Work Phone: WBC Morphology NOT REPORTED [facility] [facility] Work Phone: Comprehensive Metabolic Pane l w/ Reflex to MGon 07-07-2020 Albumin [Mass/Vol] 2.7 g/dL Low 3.5 - 5.2 g/dL [employer] Work Phone: Albumin/Globulin [Mass ratio] 1.4 {ratio} [employer] Work Phone: ALP [Catalytic activity/Vol] 100 U/L 35 - 104 U/L [employer] Work Phone: ALT [Catalytic activity/Vol] 31 U/L 5 - 33 U/L [employer] Work Phone: Anion gap [Moles/Vol] 6 mmol/L Low 9 - 17 mmol/L [employer] Work Phone: AST [Catalytic activity/Vol] 51 U/L High <32 [employer] Work Phone: Bilirubin Ql (U) 2.00 mg/dL High 0.3 - 1.2 mg/dL [employer] Work Phone: Bun/Cre Ratio 30 High [facility] Work Phone: Calcium [Mass/Vol] 8.6 mg/dL 8.6 - 10. 4 mg/dL [employer] Work Phone: Chloride [Moles/Vol] 106 mmol/L 98 - 10 7 mmol/L [employer] Work Phone: CO2 [Moles/Vol] 24 mmol/L 20 - 31 mmol/L [employer] Work Phone: Creatinine [Mass/Vol] 0.33 mg/dL Low 0.50 - 0.90 mg/dL [employer] Work Phone: GFR >60 >60 mL/min [employer] Work Phone: GFR Non- >60 >60 mL/min [employer] Phone: Glucose [Mass/Vol] 62 mg/dL Low 70 - 99 mg/dL [employer] Phone: Interpretation and review of laboratory results Abnormal [employer] Phone: Potassium [Moles/Vol] 3.1 mmol/L Low 3.7 - 5.3 mmol/L [employer] Phone: Protein [Mass/Vol] 4.6 g/dL Low 6.4 - 8.3 g/dL [employer] Phone: Sodium [Moles/Vol] 136 mmol/L 135 - 144 mmol/L [employer] Phone: Urea nitrogen [Mass/Vol] 10 mg/dL 8 - 23 mg/dL [employer] Phone: Glucose, Whole Bloodon 07-07 Glucose [Mass/Vol] 218 mg/dL High 74 - 100 mg/dL [employer] Phone: Interpretation and review of laboratory results Abnormal [employer] Phone: Glucose [Mass/Vol] 146 mg/dL High 74 - 100 mg/dL [employer] Phone: Interpretation and review of laboratory results Abnormal [employer] Phone: Glucose [Mass/Vol] 79 mg/dL 74 - 100 mg/dL [employer] Phone: Glucose [Mass/Vol] 56 mg/dL Low 74 - 100 mg/dL [employer] Phone: Interpretation and review of laboratory results Abnormal [employer] Phone: Immature Platelet Fractionon 07-07-2020 Interpretation and review of laboratory results Abnormal [employer] Phone: Platelet, Fluorescence 32 Low [employer] Phone: Platelet, Immature Fraction 8.1 % 1.1 - 10.3 % [employer] Phone: Magnesiumon 07-07-2020 Interpretation and review of laboratory results Abnormal [employer] Phone: Magnesium [Mass/Vol] 1.5 mg/dL Low 1.6 - 2 .6 mg/dL [employer] Phone: Metabolic Panelon 07-07-2020 GFR/1.73 sq M predicted among non-blacks MDRD (S/P/Bld) [Vol rate/Area] [employer] Phone: Comment on above: Stage 1: Some kidney damage normal GFR Stage 2: Mild kidney damage GFR 60-89 Stage 3: Moderate kidney damage GFR 30-59 Stage 4: Severe kidney damage GFR 15-29 Stage 5: Severe kidney damage GFR <15 ESRD - chronic treatment by dialysis or transplant Average GFR for 60-6 9 years old: 85 mL/min/1.73sq m Chronic Kidney Disease: <60 mL/min/1.73sq m Kidney failure: <15 mL/min/1.73sq m eGFR calculated using average adult body mass. Additional eGFR calculator available at: http://www.[employer].com/multiple_crcl_2012.htm Ammoniaon 07-06-2020 Ammonia (P) [Mass/Vol] 62 umol/L High 11 - 41 umol/L [employer] Phone: Interpretation and review of laboratory results Abnormal [email or web address] Phone: Glucose, Whole Bloodon 07-06 Glucose [Mass/Vol] 203 mg/dL High 74 - 100 mg/dL [employer] Phone: Interpretation and review of laboratory results Abnormal [employer] Phone: Glucose [Mass/Vol] 171 mg/dL High 74 - 100 mg/dL [employer] Phone: Interpretation and review of laboratory results Abnormal [employer] Phone: Glucose [Mass/Vol] 225 mg/dL High 74 - 100 mg/dL [employer] Phone: Interpretation and review of laboratory results Abnormal [employer] Phone: Glucose [Mass/Vol] 167 mg/dL High 74 - 100 mg/dL [employer] Phone: Interpretation and review of laboratory results Abnormal [employer] Phone: Procalcitoninon 07-06-2020 Procalcitonin 0.06 ng/mL <0.09 [employer] Work Phone: Comment on above: Suspected Sepsis: <0.50 ng/mL Low likelihood of sepsis. 0.50-2.00 ng/mL Increased likelihood of sepsis. Antibiotics encouraged. >2.00 ng/mL High risk of sepsis/shock. Antibiotics strongly encouraged. Suspected Lower Resp Tract Infections: <0.24 ng/mL Low likelihood of bacterial infection. >0.24 ng/mL Increased likelihood of bacterial infection. Antibiotics encouraged. With successful antibiotic therapy, PCT levels should decrease rapidly. (Half-life of 24 to 36 hours.) Procalcitonin values from samples collected within the first 6 hours of systemic infection may still be low. Retesting may be indicated. Values from day 1 and day 4 can be entered into the Change in Procalcitonin Calculator (www.wdarzh-bpc-lktezirwgi.com) to determine the patient's Mortality Risk Prognosis In healthy neonates, plasma Procalcitonin (PCT) concentrations increase gradually after , reaching peak values at about 24 hours of age then decrease to normal values below 0.5 ng/mL by 48-72 hours of age. US LIVER SPLEENon 07-06-2020 1. Cirrhotic liver w ith fatty infiltration. No solid hepatic mass visualized by ultrasound. 2. Liver cysts versus intrahepatic ductal dilatation, partially visualized. In addition, there appears to be cholelithiasis with mild gallbladder wall thickening/edema as well as prominence of the CBD. Further evaluation with HIDA scan and MRI/MRCP with and without IV contrast is suggested. Acute cholecystitis/choledocholi thiasis cannot be excluded. 3. Splenomegaly. [email or web address] Phone: [place], [employer] Incoming R adiant Results From [employer] - 07/06/2020 8:32 AM EDT EXAMINATION: RIGHT UPPER QUADRANT ULTRASOUND 07/06/2020 7:16 am COMPARISON: None. HISTORY: ORDERING SYSTEM PROVIDED HISTORY: increase liver enzymes TECHNOLOGIST PROVIDED HISTORY: increase liver enzymes FINDINGS: LIVER: Cirrhotic liver with fatty infiltration. No focal mass or intrahepatic bile duct dilatation. Liver cysts versus ductal dilatation, partially visualized, largest measuring 1.4 cm. Hepatopetal flow seen within the portal vein. BILIARY SYSTEM: Cholelithiasis. Mild gallbladder wall thickening/edema. Negative Squires's sign. Common bile duct is prominent measuring 7 mm. RIGHT KIDNEY: The right kidney is grossly unremarkable without evidence of hydronephrosis. PANCREAS: Visualized portions of the pancreas are unremarkable. SPLEEN: Splenomegaly measuring 16.8 cm. No focal lesion. OTHER: No evidence of right upper quadrant ascites. IMPRESSION: 1. Cirrhotic liver with fatty infiltration. No solid hepatic mass visualized by ultrasound. 2. Liver cysts versus intrahepatic ductal dilatation, partially visualized. In addition, there appears to be cholelithiasis with mild gallbladder wall thickening/edema as well as prominence of the CBD. Further evaluation with HIDA scan and MRI/MRCP with and without IV contrast is suggested. Acute cholecystitis/choledocholi thiasis cannot be excluded. 3. Splenomegaly. [employer] Phone: EXAMINATION: RIGHT U PPER QUADRANT ULTRASOUND 07/06/2020 7:16 am COMPARISON: None. HISTORY: ORDERING SYSTEM PROVIDED HISTORY: increase liver enzymes TECHNOLOGIST PROVIDED HISTORY: increase liver enzymes FINDINGS: LIVER: Cirrhotic liver with fatty infiltration. No focal mass or intrahepatic bile duct dilatation. Liver cysts versus ductal dilatation, partially visualized, largest measuring 1.4 cm. Hepatopetal flow seen within the portal vein. BILIARY SYSTEM: Cholelithiasis. Mild gallbladder wall thickening/edema. Negative Squires's sign. Common bile duct is prominent measuring 7 mm. RIGHT KIDNEY: The right kidney is grossly unremarkable without evidence of hydronephrosis. PANCREAS: Visualized portions of the pancreas are unremarkable. SPLEEN: Splenomegaly measuring 16.8 cm. No focal lesion. OTHER: No evidence of right upper quadrant ascites. [employer] Phone: CBCon 07-05-2020 Erythrocyte distribution width (RBC) [Ratio] 13.5 % 11.8 - 14.4 % [employer] Phone: Hematocrit (Bld) [Volume fraction] 31.6 % Low 36.3 - 47.1 % [facility] Phone: Hemoglobin (Bld) [Mass/Vol] 10.7 g/dL Low 11.9 - 15.1 g/dL [facility] Phone: Interpretation and review of laboratory results Abnormal [facility] Phone: MCH (RBC) [Entitic mass] 35.1 pg High 25.2 - 33.5 pg [employer] Phone: MCHC (RBC) [Mass/Vol] 33.9 g/dL 28.4 - 34.8 g/dL [employer] Phone: MCV (RBC) [Entitic vol] 103.6 fL High 82.6 - 102.9 fL [facility] Phone: Platelet mean volume (Bld) [Entitic vol] NOT REPORTED 8.1 - 13.5 fL [facility] Phone: Platelets (Bld) [#/Vol] See Reflexed IPF Result [facility] Phone: RBC (Bld) [#/Vol] 3.05 10*6/uL Low 3.95 - 5.11 m/uL [facility] Phone: WBC (Bld) [#/Vol] 1.0 10*3/uL Critically low [facility] [employer] Phone: WBC (Bld) [#/Vol] 0.0 10*3/uL 0.0 per 100 WBC [facility] Phone: Comprehensive Metabolic Pane l w/ Reflex to MGon 07-05-2020 Albumin [Mass/Vol] 2.5 g/dL Low 3.5 - 5.2 g/dL [employer] Phone: Albumin/Globulin [Mass ratio] 1.4 {ratio} [employer] Phone: ALP [Catalytic activity/Vol] 92 U/L 35 - 104 U/L [employer] Work Phone: ALT [Catalytic activity/Vol] 22 U/L 5 - 33 U/L [employer] Phone: Anion gap [Moles/Vol] 6 mmol/L Low 9 - 17 mmol/L [employer] Phone: AST [Catalytic activity/Vol] 37 U/L High <32 [employer] Work Phone: Bilirubin Ql (U) 3.20 mg/dL High 0.3 - 1.2 mg/dL [employer] Phone: Bun/Cre Ratio 27 High [employer] Work Phone: Calcium [Mass/Vol] 7.7 mg/dL Low 8.6 - 10. 4 mg/dL [employer] Work Phone: Chloride [Moles/Vol] 108 mmol/L High 98 - 10 7 mmol/L [employer] Phone: CO2 [Moles/Vol] 22 mmol/L 20 - 31 mmol/L [employer] Phone: Creatinine [Mass/Vol] 0.41 mg/dL Low 0.50 - 0.90 mg/dL [employer] Phone: GFR >60 >60 mL/min [employer] Work Phone: GFR Non- >60 >60 mL/min [employer] Work Phone: Glucose [Mass/Vol] 293 mg/dL High 70 - 99 mg/dL [employer] Phone: Interpretation and review of laboratory results Abnormal [employer] Phone: Potassium [Moles/Vol] 3.9 mmol/L 3.7 - 5.3 mmol/L [employer] Phone: Protein [Mass/Vol] 4.3 g/dL Low 6.4 - 8.3 g/dL [employer] Phone: Sodium [Moles/Vol] 136 mmol/L 135 - 144 mmol/L [employer] Phone: Urea nitrogen [Mass/Vol] 11 mg/dL 8 - 23 mg/dL [employer] Phone: Glucose, Whole Bloodon 07-05 Glucose [Mass/Vol] 297 mg/dL High 74 - 100 mg/dL [employer] Phone: Interpretation and review of laboratory results Abnormal [employer] Phone: Glucose [Mass/Vol] 321 mg/dL High 74 - 100 mg/dL [employer] Phone: Interpretation and review of laboratory results Abnormal [employer] Phone: Glucose [Mass/Vol] 342 mg/dL High 74 - 100 mg/dL [employer] Phone: Interpretation and review of laboratory results Abnormal [employer] Phone: Glucose [Mass/Vol] 284 mg/dL High 74 - 100 mg/dL [employer] Phone: Interpretation and review of laboratory results Abnormal [employer] Phone: Immature Platelet Fractionon 07-05-2020 Interpretation and review of laboratory results Abnormal [employer] Phone: Platelet, Fluorescence 29 Low [employer] Phone: Platelet, Immature Fraction 5.9 % 1.1 - 10.3 % [employer] Phone: Metabolic Panelon 07-05-2020 GFR/1.73 sq M predicted among non-blacks MDRD (S/P/Bld) [Vol rate/Area] [employer] Phone: Comment on above: Average GFR for 60-6 9 years old: 85 mL/min/1.73sq m Chronic Kidney Disease: <60 mL/min/1.73sq m Kidney failure: <15 mL/min/1.73sq m eGFR calculated using average adult body mass. Additional eGFR calculator available at: http://www.Wukong.com/multiple_crcl_2012.htm Stage 1: Some kidney damage normal GFR Stage 2: Mild kidney damage GFR 60-89 Stage 3: Moderate kidney damage GFR 30-59 Stage 4: Severe kidney damage GFR 15-29 Stage 5: Severe kidney damage GFR <15 ESRD - chronic treatment by dialysis or transplant Ammoniaon 07-04-2020 Ammonia (P) [Mass/Vol] 84 umol/L High 11 - 41 umol/L [employer] Phone: CBC Auto Differentialon Basophils (Bld) [#/Vol] 0.00 10*3/uL [employer] Phone: Basophils/100 WBC (Bld) 0 % 0 - 2 % [employer] Phone: Differential Type NOT REPORTED [employer] Phone: Eosinophils (Bld) [#/Vol] 0.04 10*3/uL [employer] Phone: Eosinophils/100 WBC (Bld) 2 % 1 - 4 % [employer] Phone: Erythrocyte distribution width (RBC) [Ratio] 13.1 % 11.8 - 14.4 % [employer] Phone: Hematocrit (Bld) [Volume fraction] 35.0 % Low 36.3 - 47.1 % [employer] Phone: Hemoglobin (Bld) [Mass/Vol] 12.1 g/dL 11.9 - 15.1 g/dL [employer] Phone: Immature granulocytes (Bld) [#/Vol] 0 % 0 [employer] Phone: Immature granulocytes (Bld) [#/Vol] 0.00 10*3/uL [employer] Phone: Interpretation and review of laboratory results Abnormal [employer] Phone: Lymphocytes (Bld) [#/Vol] 0.30 10*3/uL Low [employer] Phone: Lymphocytes/100 WBC (Bld) 16 % Low 24 - 43 % [employer] Phone: MCH (RBC) [Entitic mass] 34.6 pg High 25.2 - 33.5 pg [employer] Phone: MCHC (RBC) [Mass/Vol] 34.6 g/dL 28.4 - 34.8 g/dL [employer] Phone: MCV (RBC) [Entitic vol] 100.0 fL 82.6 - 102.9 fL [employer] Phone: Monocytes (Bld) [#/Vol] 0.08 10*3/uL Low [employer] Phone: Monocytes/100 WBC (Bld) 4 % 3 - 12 % [employer] Phone: Morphology Ajay (Bld) [Interp] Platelet scan shows Decreased Platelets [employer] Phone: Platelet mean volume (Bld) [Entitic vol] NOT REPORTED 8.1 - 13.5 fL [employer] Phone: Platelets (Bld) [#/Vol] NOT REPORTED [employer] Phone: Platelets (Bld) [#/Vol] See Reflexed IPF Result [employer] Phone: RBC (Bld) [#/Vol] 3.50 10*6/uL Low 3.95 - 5.11 m/uL [employer] Phone: RBC morphology finding Nom (Bld) NOT REPORTED [employer] Phone: Segmented neutrophils/100 WBC (Bld) 78 % High 36 - 65 % [employer] Phone: Segs Absolute 1.48 Low [employer] [facility] Work Phone: WBC (Bld) [#/Vol] 1.9 10*3/uL Low [facility] [employer] Work Phone: WBC (Bld) [#/Vol] 0.0 10*3/uL 0.0 per 100 WBC [employer] Phone: WBC Morphology NOT REPORTED [facility] Work Phone: COVID-19, Rapidon 07-04-2020 SARS-CoV-2, Rapid Not Detected Not Detected [facility] Phone: Comment on above: Rapid NAAT: The specimen is NEGATIVE for SARS-CoV-2, the novel coronavirus associated with COVID-19. The ID NOW COVID-19 assay is designed to detect the virus that causes COVID-19 in patients with signs and symptoms of infection who are suspected of COVID-19. An individual without symptoms of COVID-19 and who is not shedding SARS-CoV-2 virus would expect to have a negative (not detected) result in this assay. Negative results should be treated as presumptive and, if inconsistent with clinical signs and symptoms or necessary for patient management, should be tested with an alternative molecular assay. Negative results do not preclude SARS-CoV-2 infection and should not be used as the sole basis for patient management decisions. Fact sheet for Healthcare Providers: https://www.fda.gov/media/388455/download Fact sheet for Patients: https://www.fda.gov/media/573814/download Methodology: Isothermal Nucleic Acid Amplification Specimen Description .NASOPHARYNGEAL SWAB [employer] Phone: Comprehensive Metabolic Pane ky 07-04-2020 Albumin [Mass/Vol] 3.2 g/dL Low 3.5 - 5.2 g/dL [employer] Phone: Albumin/Globulin [Mass ratio] 1.5 {ratio} [employer] Phone: ALP [Catalytic activity/Vol] 119 U/L High 35 - 104 U/L [employer] Work Phone: ALT [Catalytic activity/Vol] 28 U/L 5 - 33 U/L [employer] Phone: Anion gap [Moles/Vol] 9 mmol/L 9 - 17 mmol/L [employer] Work Phone: AST [Catalytic activity/Vol] 46 U/L High <32 [employer] Work Phone: Bilirubin Ql (U) 3.93 mg/dL High 0.3 - 1.2 mg/dL [employer] Work Phone: Bun/Cre Ratio 25 High [employer] Work Phone: Calcium [Mass/Vol] 9.0 mg/dL 8.6 - 10. 4 mg/dL [employer] Phone: Chloride [Moles/Vol] 102 mmol/L 98 - 10 7 mmol/L [employer] Work Phone: CO2 [Moles/Vol] 25 mmol/L 20 - 31 mmol/L [employer] Work Phone: Creatinine [Mass/Vol] 0.44 mg/dL Low 0.50 - 0.90 mg/dL [employer] Phone: GFR >60 >60 mL/min [employer] Phone: GFR Non- >60 >60 mL/min [employer] Work Phone: Glucose [Mass/Vol] 159 mg/dL High 70 - 99 mg/dL [employer] Work Phone: Potassium [Moles/Vol] 3.9 mmol/L 3.7 - 5.3 mmol/L [employer] Phone: Protein [Mass/Vol] 5.4 g/dL Low 6.4 - 8.3 g/dL [employer] Phone: Sodium [Moles/Vol] 136 mmol/L 135 - 144 mmol/L [employer] Phone: Urea nitrogen [Mass/Vol] 11 mg/dL 8 - 23 mg/dL [employer] Phone: Glucose, Whole Bloodon 07-04 Glucose [Mass/Vol] 126 mg/dL High 74 - 100 mg/dL [employer] Phone: Interpretation and review of laboratory results Abnormal [employer] Phone: Immature Platelet Fractionon 07-04-2020 Interpretation and review of laboratory results Abnormal [employer] Phone: Platelet, Fluorescence 35 Low [employer] Phone: Platelet, Immature Fraction 6.4 % 1.1 - 10.3 % [employer] Phone: Lactic Acid, Plasmaon 2020 Lactate [Moles/Vol] 1.7 mmol/L 0.5 - 2. 2 mmol/L [employer] Phone: Lactic Acid, Whole Blood NOT REPORTED 0.7 - 2.1 mmol/L [employer] Phone: Interpretation and review of laboratory results Abnormal [employer] Phone: Lactate [Moles/Vol] 2.4 mmol/L High 0.5 - 2. 2 mmol/L [employer] Phone: Lactic Acid, Whole Blood NOT REPORTED 0.7 - 2.1 mmol/L [employer] Phone: Metabolic Panelon 07-04-2020 GFR/1.73 sq M predicted among non-blacks MDRD (S/P/Bld) [Vol rate/Area] [employer] Phone: Comment on above: Average GFR for 60-6 9 years old: 85 mL/min/1.73sq m Chronic Kidney Disease: <60 mL/min/1.73sq m Kidney failure: <15 mL/min/1.73sq m eGFR calculated using average adult body mass. Additional eGFR calculator available at: http://www.eOriginal.com/multiple_crcl_2012.htm Stage 1: Some kidney damage normal GFR Stage 2: Mild kidney damage GFR 60-89 Stage 3: Moderate kidney damage GFR 30-59 Stage 4: Severe kidney damage GFR 15-29 Stage 5: Severe kidney damage GFR <15 ESRD - chronic treatment by dialysis or transplant Microscopic Urinalysison Amorphous, UA NOT REPORTED [facility] Work Phone: Bacteria, UA TRACE Abnormal None [facility] [employer] Work Phone: Casts UA NOT REPORTED /LPF [facility] [employer] Work Phone: Crystals, UA NOT REPORTED None /HPF [facility] Work Phone: Epithelial Cells UA 2 TO 5 [facility] [employer] Work Phone: Interpretation and review of laboratory results Abnormal [facility] Work Phone: Mucus, UA 1+ Abnormal None [facility] [employer] Work Phone: Other Observations UA NOT REPORTED NOT REQ. [facility] [employer] Work Phone: RBC (U) [#/Vol] 2 TO 5 [facility] Work Phone: Renal Epithelial, UA NOT REPORTED 0 /HPF [facility] [employer] Work Phone: Trichomonas, UA NOT REPORTED None [facility] Work Phone: WBC, UA 0 TO 2 [facility] [employer] Work Phone: Yeast, UA NOT REPORTED None [facility] [employer] Work Phone: - [facility] Work Phone: Otheron 07-04-2020 Interpretation and review of laboratory results Abnormal [employer] Work Phone: Urinalysis Reflex to Culture on 07-04-2020 Bilirubin Urine Negative NEGATIVE [facility] Work Phone: Color, UA YELLOW YELLOW [employer] Phone: Glucose, Ur Negative NEGATIVE [email or web address] Work Phone: Interpretation and review of laboratory results Abnormal [facility] Work Phone: Ketones Ql (U) Negative NEGATIVE [facility] Work Phone: Leukocyte esterase Test strip Ql (U) Negative NEGATIVE [facility] Phone: Nitrite, Urine Negative NEGATIVE [facility] Work Phone: pH, UA 5.5 [facility] [employer] Work Phone: Protein (U) [Mass/Vol] Negative NEGATIVE [facility] Phone: Specific [place], UA 1.025 High [facility] [employer] Phone: Turbidity UA CLEAR CLEAR [facility] Phone: Urinalysis Comments NOT REPORTED [facility] [employer] Work Phone: Urine Hgb TRACE Abnormal NEGATIVE [facility] Phone: Urobilinogen, Urine Normal Normal [facility] [employer] Phone: XR CHEST PORTABLEon 07-05-19 EXAMINATION: ONE XRA Y VIEW OF THE CHEST 07/04/2020 6:11 pm COMPARISON: None. HISTORY: ORDERING SYSTEM PROVIDED HISTORY: fever TECHNOLOGIST PROVIDED HISTORY: fever FINDINGS: A portable upright frontal view chest radiograph was obtained. The heart is enlarged. The mediastinal contour and pleural spaces are otherwise within normal limits. The lungs are mildly hyperinflated although grossly clear. There is no focal consolidation or pneumothorax. The pulmonary vascular pattern is within normal limits. No acute thoracic osseous abnormality. [employer] Work Phone: Clear lungs. Cardiom egaly. No acute cardiopulmonary abnormality. [employer] Phone: [employer] Incoming R adiant Results From [employer]/[facility] - 07/04/2020 7:45 PM EDT EXAMINATION: ONE XRAY VIEW OF THE CHEST 07/04/2020 6:11 pm COMPARISON: None. HISTORY: ORDERING SYSTEM PROVIDED HISTORY: fever TECHNOLOGIST PROVIDED HISTORY: fever FINDINGS: A portable upright frontal view chest radiograph was obtained. The heart is enlarged. The mediastinal contour and pleural spaces are otherwise within normal limits. The lungs are mildly hyperinflated although grossly clear. There is no focal consolidation or pneumothorax. The pulmonary vascular pattern is within normal limits. No acute thoracic osseous abnormality. IMPRESSION: Clear lungs. Cardiomegaly. No acute cardiopulmonary abnormality. [employer] Work Phone: Urinalysis with Microscopico n 06-18-2020 Amorphous, UA NOT REPORTED None [employer] Work Phone: Bacteria, UA 2+ Abnormal None [employer] Phone: Comment on above: CORRECTED ON 06/18 A T 0855: PREVIOUSLY REPORTED TRACE Bilirubin Urine SMALL Abnormal NEGATIVE [employer] Work Phone: Casts UA NOT REPORTED /LPF [employer] Work Phone: Color, UA YELLOW YELLOW [employer] Phone: Crystals, UA NOT REPORTED NOT REPORTED Abnormal None /HP F [employer] Phone: Epithelial Cells UA 0 TO 2 [employer] Phone: Comment on above: CORRECTED ON 06/18 A T 0855: PREVIOUSLY REPORTED 2 TO 5 Glucose, Ur Negative NEGATIVE [employer] Phone: Interpretation and review of laboratory results Abnormal [employer] Phone: Ketones Ql (U) Negative NEGATIVE [employer] Work Phone: Leukocyte esterase Test strip Ql (U) Negative NEGATIVE [employer] Phone: Mucus, UA TRACE Abnormal None [employer] Phone: Nitrite, Urine Negative NEGATIVE [employer] Work Phone: Other Observations UA NOT REPORTED NOT REQ. [employer] Work Phone: pH, UA 6.0 [facility] Work Phone: Protein (U) [Mass/Vol] Negative NEGATIVE [email or web address] Work Phone: RBC (U) [#/Vol] None [facility] Work Phone: Renal Epithelial, UA None 0 /HPF [facility] Work Phone: Specific [place], UA >1.030 High [facility] Work Phone: Trichomonas, UA NOT REPORTED None [facility] [employer] Work Phone: Turbidity UA CLEAR CLEAR [facility] Work Phone: Urinalysis Comments NOT REPORTED [facility] [employer] Work Phone: Urine Hgb Negative NEGATIVE [facility] Work Phone: Urobilinogen, Urine ELEVATED Abnormal Normal [email or web address] Work Phone: WBC, UA 0 TO 2 [facility] Work Phone: Yeast, UA NOT REPORTED None [facility] Work Phone: - [employer] Work Phone: Basic Metabolic Panelon 03- Anion gap [Moles/Vol] 4 mmol/L Low 9 - 17 mmol/L [facility] Work Phone: Bun/Cre Ratio 46 High [employer] [facility] Work Phone: Calcium [Mass/Vol] 8.7 mg/dL 8.6 - 10. 4 mg/dL [facility] Work Phone: Chloride [Moles/Vol] 105 mmol/L 98 - 10 7 mmol/L [facility] Work Phone: CO2 [Moles/Vol] 30 mmol/L 20 - 31 mmol/L [facility] Work Phone: Creatinine [Mass/Vol] 0.26 mg/dL Low 0.50 - 0.90 mg/dL [employer] Phone: GFR >60 >60 mL/min [employer] Phone: GFR Non- >60 >60 mL/min [employer] Phone: Glucose [Mass/Vol] 54 mg/dL Low 70 - 99 mg/dL [employer] Phone: Interpretation and review of laboratory results Abnormal [employer] Phone: Potassium [Moles/Vol] 3.3 mmol/L Low 3.7 - 5.3 mmol/L [employer] Phone: Sodium [Moles/Vol] 139 mmol/L 135 - 144 mmol/L [employer] Phone: Urea nitrogen [Mass/Vol] 12 mg/dL 8 - 23 mg/dL [employer] Phone: Metabolic Panelon 06-15-2020 GFR/1.73 sq M predicted among non-blacks MDRD (S/P/Bld) [Vol rate/Area] [employer] Phone: Comment on above: Stage 1: Some kidney damage normal GFR Stage 2: Mild kidney damage GFR 60-89 Stage 3: Moderate kidney damage GFR 30-59 Stage 4: Severe kidney damage GFR 15-29 Stage 5: Severe kidney damage GFR <15 ESRD - chronic treatment by dialysis or transplant Average GFR for 60-6 9 years old: 85 mL/min/1.73sq m Chronic Kidney Disease: <60 mL/min/1.73sq m Kidney failure: <15 mL/min/1.73sq m eGFR calculated using average adult body mass. Additional eGFR calculator available at: http://www.eOriginal.[employer]/multiple_crcl_2012.htm Bilirubin, Directon 10-26-19 20 Bilirubin.conjugated [Mass/Vol] 1.2 mg/dL High 0 - 0.4 mg/dL [employer] Comment on above: Slightly Hemolyzed Interpretation and review of laboratory results Abnormal [employer] CBCon 10-26-2019 Erythrocyte distribution width (RBC) [Entitic vol] 14.3 % 11.6 - 14.8 % [facility] Hematocrit (Bld) [Volume fraction] 33.4 % Low 36 - 46 % [facility] Hemoglobin (Bld) [Mass/Vol] 11.5 g/dL Low 12 - 16 g/dL [facility] Interpretation and review of laboratory results Abnormal [facility] MCH (RBC) [Entitic mass] 36.1 pg High 26 - 34 pg [facility] MCHC (RBC) [Mass/Vol] 34.4 g/dL 31 - 37 g/dL [facility] MCV (RBC) [Entitic vol] 104.7 fL High 80 - 100 fL [facility] Nucleated RBC (Bld) [#/Vol] 0.00 10*3/uL [facility] Nucleated RBC/100 WBC (Bld) [Ratio] 0.0 % [facility] Platelet mean volume (Bld) [Entitic vol] 11.5 fL 9.4 - 12.4 fL [facility] Platelets (Bld) [#/Vol] 45 10*3/uL Critically low [facility] Comment on above: Previous result call ed RBC (Bld) [#/Vol] 3.19 10*6/uL Low [facility] WBC (Bld) [#/Vol] 2.49 10*3/uL Low [facility] Comprehensive Metabolic Pane ky 10-26-2019 Albumin [Mass/Vol] 2.4 g/dL Low 3.2 - 5.2 g/dL [facility] ALP [Catalytic activity/Vol] 150 U/L 40 - 150 U/L [facility] ALT [Catalytic activity/Vol] 22 U/L 0 - 40 U/L [facility] Anion gap [Moles/Vol] 13 mmol/L 10 - 20 mmol/L [facility] AST [Catalytic activity/Vol] 45 U/L 0 - 45 U/L [facility] Bilirubin [Mass/Vol] 3.3 mg/dL High 0 - 1.3 mg/dL [facility] Calcium [Mass/Vol] 8.6 mg/dL 8.4 - 10. 2 mg/dL [facility] Chloride [Moles/Vol] 97 mmol/L Low 98 - 10 8 mmol/L [facility] Creatinine [Mass/Vol] 0.29 mg/dL Low 0.60 - 1.20 [facility] GFR/1.73 sq M predicted among non-blacks MDRD (S/P/Bld) [Vol rate/Area] The eGFR should be used for monitoring renal function only and not for medication dosing. [facility] GFR/1.73 sq M.predicted CKD-EPI (S/P/Bld) [Vol rate/Area] 121 >=60 mL/min/1.7 3 m2 [facility] Glucose [Mass/Vol] 198 mg/dL High 65 - 99 mg/dL [facility] HCO3 [Moles/Vol] 30 mmol/L 21 - 32 mmol/L [facility] Interpretation and review of laboratory results Abnormal [facility] Potassium [Moles/Vol] 4.1 mmol/L 3.5 - 5.1 mmol/L [facility] Protein [Mass/Vol] 4.6 g/dL Low 6 - 8 g/dL [facility] Sodium [Moles/Vol] 136 mmol/L 135 - 145 mmol/L [facility] Urea nitrogen [Mass/Vol] 14 mg/dL 8 - 25 mg/dL [facility] Urea nitrogen/Creatinine [Mass ratio] 48.3 mg/mg High [facility] POC Glucoseon 10-26-2019 Glucose [Mass/Vol] 181 mg/dL High 65 - 99 mg/dL [facility] Interpretation and review of laboratory results Abnormal [facility] PT/INRon 10-26-2019 INR Coag (PPP) [Relative time] 1.6 {INR} High [facility] Interpretation and review of laboratory results Abnormal [facility] PT Coag (PPP) [Time] 18.9 s [facility] During the induction phase of oral anticoagulation, the INR may not reflect the anticoagulation status of the patient. Therapeutic ranges for INR's are: Most clinical situations: INR 2.0-3.0 Mechanical Prosthetic Valve: INR 2.5-3.5 Critical: INR >5.0 [facility] Bilirubin, Directon 10-25-19 20 Bilirubin.conjugated [Mass/Vol] 1.3 mg/dL High 0 - 0.4 mg/dL [facility] Interpretation and review of laboratory results Abnormal [facility] CBCon 10-25-2019 Erythrocyte distribution width (RBC) [Entitic vol] 14.8 % 11.6 - 14.8 % [facility] Hematocrit (Bld) [Volume fraction] 32.5 % Low 36 - 46 % [facility] Hemoglobin (Bld) [Mass/Vol] 11.1 g/dL Low 12 - 16 g/dL [facility] Interpretation and review of laboratory results Abnormal [facility] MCH (RBC) [Entitic mass] 36.3 pg High 26 - 34 pg [facility] MCHC (RBC) [Mass/Vol] 34.2 g/dL 31 - 37 g/dL [facility] MCV (RBC) [Entitic vol] 106.2 fL High 80 - 100 fL [facility] Nucleated RBC (Bld) [#/Vol] 0.00 10*3/uL [facility] Nucleated RBC/100 WBC (Bld) [Ratio] 0.0 % [facility] Platelet mean volume (Bld) [Entitic vol] 12.3 fL 9.4 - 12.4 fL [facility] Comment on above: Peripheral smear rev iewed manually Platelets (Bld) [#/Vol] 30 10*3/uL Critically low [facility] Comment on above: Previous result call ed RBC (Bld) [#/Vol] 3.06 10*6/uL Low [facility] ealt WBC (Bld) [#/Vol] 1.60 10*3/uL Low [facility] COVID-19, Molecularon 2019 Interpretation and review of laboratory results Normal [facility] SARS-CoV-2 Not Detected Not Detected [facility] Comment on above: This test was perfor med under the FDA's Emergency Use Authorization (EUA). Testing was performed using the [employer] ID NOW COVID-19 assay on the ID NOW platform. This test has not been approved for use in asymptomatic patients and its performance in this patient population has not been evaluated. Negative results do not rule out the presence of SARS-CoV-2/COVID-19. Fact sheets for the EUA can be found at the following links: For Healthcare Providers: https://www.fda.gov/media/387958/download For Patients: https://www.fda.gov/media/387549/download Comprehensive Metabolic Pane [place] 10-25-2019 Albumin [Mass/Vol] 2.1 g/dL Low 3.2 - 5.2 g/dL [facility] ALP [Catalytic activity/Vol] 149 U/L 40 - 150 U/L [facility] ALT [Catalytic activity/Vol] 21 U/L 0 - 40 U/L [facility] Anion gap [Moles/Vol] 12 mmol/L 10 - 20 mmol/L [facility] AST [Catalytic activity/Vol] 36 U/L 0 - 45 U/L [facility] Bilirubin [Mass/Vol] 3.0 mg/dL High 0 - 1.3 mg/dL [facility] Calcium [Mass/Vol] 8.4 mg/dL 8.4 - 10. 2 mg/dL [facility] Chloride [Moles/Vol] 94 mmol/L Low 98 - 10 8 mmol/L [facility] Creatinine [Mass/Vol] 0.29 mg/dL Low 0.60 - 1.20 [facility] GFR/1.73 sq M predicted among non-blacks MDRD (S/P/Bld) [Vol rate/Area] The eGFR should be used for monitoring renal function only and not for medication dosing. [facility] GFR/1.73 sq M.predicted CKD-EPI (S/P/Bld) [Vol rate/Area] 121 >=60 mL/min/1.7 3 m2 [facility] Glucose [Mass/Vol] 286 mg/dL High 65 - 99 mg/dL [facility] HCO3 [Moles/Vol] 31 mmol/L 21 - 32 mmol/L [facility] Interpretation and review of laboratory results Abnormal [facility] Potassium [Moles/Vol] 3.9 mmol/L 3.5 - 5.1 mmol/L [facility] Protein [Mass/Vol] 4.4 g/dL Low 6 - 8 g/dL [facility]th Sodium [Moles/Vol] 133 mmol/L Low 135 - 145 mmol/L [facility] Urea nitrogen [Mass/Vol] 15 mg/dL 8 - 25 mg/dL [facility] Urea nitrogen/Creatinine [Mass ratio] 51.7 mg/mg High [facility] POC Glucoseon 10-25-2019 Glucose [Mass/Vol] 255 mg/dL High 65 - 99 mg/dL [facility] Interpretation and review of laboratory results Abnormal [facility] Glucose [Mass/Vol] 175 mg/dL High 65 - 99 mg/dL [facility] Interpretation and review of laboratory results Abnormal [facility] Glucose [Mass/Vol] 137 mg/dL High 65 - 99 mg/dL [facility] Interpretation and review of laboratory results Abnormal [facility] Glucose [Mass/Vol] 255 mg/dL High 65 - 99 mg/dL [facility] Interpretation and review of laboratory results Abnormal [facility] PT/INRon 10-25-2019 INR Coag (PPP) [Relative time] 1.6 {INR} High [facility] Interpretation and review of laboratory results Abnormal [facility] PT Coag (PPP) [Time] 19.0 s High [facility] During the induction phase of oral anticoagulation, the INR may not reflect the anticoagulation status of the patient. Therapeutic ranges for INR's are: Most clinical situations: INR 2.0-3.0 Mechanical Prosthetic Valve: INR 2.5-3.5 Critical: INR >5.0 [facility] BODY FLUID AEROBIC CULTUREon 10-24-2019 Bacteria identified Aer cx Nom (Body fld) No Growth After 5 Days [facility] h Microscopic observation Gram stain Nom (Body fld) No Organisms Seen [facility] Microscopic observation Gram stain Nom (Body fld) Few WBC [facility] Microscopic observation Gram stain Nom (Body fld) Few RBC [facility] Basic Metabolic Panelon 10-02 Anion gap [Moles/Vol] 11 mmol/L 10 - 20 mmol/L [facility] Calcium [Mass/Vol] 8.7 mg/dL 8.4 - 10. 2 mg/dL [facility] Chloride [Moles/Vol] 97 mmol/L Low 98 - 10 8 mmol/L [facility] Creatinine [Mass/Vol] 0.25 mg/dL Low 0.60 - 1.20 [facility] GFR/1.73 sq M predicted among non-blacks MDRD (S/P/Bld) [Vol rate/Area] The eGFR should be used for monitoring renal function only and not for medication dosing. [facility] GFR/1.73 sq M.predicted CKD-EPI (S/P/Bld) [Vol rate/Area] 127 >=60 mL/min/1.7 3 m2 [facility] Glucose [Mass/Vol] 125 mg/dL High 65 - 99 mg/dL [facility] HCO3 [Moles/Vol] 30 mmol/L 21 - 32 mmol/L [facility] Interpretation and review of laboratory results Abnormal [facility] Potassium [Moles/Vol] 3.8 mmol/L 3.5 - 5.1 mmol/L [facility] Sodium [Moles/Vol] 134 mmol/L Low 135 - 145 mmol/L [facility] Urea nitrogen [Mass/Vol] 15 mg/dL 8 - 25 mg/dL [facility] Urea nitrogen/Creatinine [Mass ratio] 60.0 mg/mg High [facility] Body Fluid Anaerobic Culture on 10-24-2019 Bacteria identified Anaer cx Nom (Body fld) No Anaerobic Growth at 5 Days [facility] CBCon 10-24-2019 Erythrocyte distribution width (RBC) [Entitic vol] 14.9 % High 11.6 - 14.8 % [facility] Hematocrit (Bld) [Volume fraction] 31.7 % Low 36 - 46 % [facility] Hemoglobin (Bld) [Mass/Vol] 10.8 g/dL Low 12 - 16 g/dL [facility] Interpretation and review of laboratory results Abnormal [facility] MCH (RBC) [Entitic mass] 36.0 pg High 26 - 34 pg [facility] MCHC (RBC) [Mass/Vol] 34.1 g/dL 31 - 37 g/dL [facility] MCV (RBC) [Entitic vol] 105.7 fL High 80 - 100 fL [facility] Nucleated RBC (Bld) [#/Vol] 0.00 10*3/uL [facility] Nucleated RBC/100 WBC (Bld) [Ratio] 0.0 % [facility] Platelet mean volume (Bld) [Entitic vol] 12.0 fL 9.4 - 12.4 fL [facility] Platelets (Bld) [#/Vol] 33 10*3/uL Critically low [facility] Comment on above: Previous result call ed RBC (Bld) [#/Vol] 3.00 10*6/uL Low [facility] WBC (Bld) [#/Vol] 2.02 10*3/uL Low [facility] ealt POC Glucoseon 10-24-2019 Glucose [Mass/Vol] 279 mg/dL High 65 - 99 mg/dL [facility] Interpretation and review of laboratory results Abnormal [facility] Glucose [Mass/Vol] 95 mg/dL 65 - 99 mg/dL [facility] Interpretation and review of laboratory results Normal [facility] Glucose [Mass/Vol] 156 mg/dL High 65 - 99 mg/dL [facility] Interpretation and review of laboratory results Abnormal [facility] Glucose [Mass/Vol] 217 mg/dL High 65 - 99 mg/dL [facility] Interpretation and review of laboratory results Abnormal [facility] Glucose [Mass/Vol] 85 mg/dL 65 - 99 mg/dL [facility] Interpretation and review of laboratory results Normal [facility] Glucose [Mass/Vol] 188 mg/dL High 65 - 99 mg/dL [facility] Interpretation and review of laboratory results Abnormal [facility] Glucose [Mass/Vol] 306 mg/dL High 65 - 99 mg/dL [facility] Interpretation and review of laboratory results Abnormal [facility] PT/INRon 10-24-2019 INR Coag (PPP) [Relative time] 1.7 {INR} High [facility] Interpretation and review of laboratory results Abnormal [facility] PT Coag (PPP) [Time] 19.3 s [facility] During the induction phase of oral anticoagulation, the INR may not reflect the anticoagulation status of the patient. Therapeutic ranges for INR's are: Most clinical situations: INR 2.0-3.0 Mechanical Prosthetic Valve: INR 2.5-3.5 Critical: INR >5.0 [facility] Bilirubin, Directon 10-23-19 20 Bilirubin.conjugated [Mass/Vol] 1.4 mg/dL High 0 - 0.4 mg/dL [facility] Interpretation and review of laboratory results Abnormal [facility] CBCon 10-23-2019 Erythrocyte distribution width (RBC) [Entitic vol] 14.9 % High 11.6 - 14.8 % [facility] Hematocrit (Bld) [Volume fraction] 33.1 % Low 36 - 46 % [facility] Hemoglobin (Bld) [Mass/Vol] 11.4 g/dL Low 12 - 16 g/dL [facility] Interpretation and review of laboratory results Abnormal [facility] MCH (RBC) [Entitic mass] 36.2 pg High 26 - 34 pg [facility] MCHC (RBC) [Mass/Vol] 34.4 g/dL 31 - 37 g/dL [facility] MCV (RBC) [Entitic vol] 105.1 fL High 80 - 100 fL [facility] Nucleated RBC (Bld) [#/Vol] 0.00 10*3/uL [facility] Nucleated RBC/100 WBC (Bld) [Ratio] 0.0 % [facility] Platelet mean volume (Bld) [Entitic vol] 12.1 fL 9.4 - 12.4 fL [facility] Platelets (Bld) [#/Vol] 32 10*3/uL Critically low [facility] Comment on above: Previous result call ed RBC (Bld) [#/Vol] 3.15 10*6/uL Low [facility] Comment on above: Peripheral smear rev iewed manually WBC (Bld) [#/Vol] 1.70 10*3/uL Low [facility] Comprehensive Metabolic Pane [place] 10-23-2019 Albumin [Mass/Vol] 2.1 g/dL Low 3.2 - 5.2 g/dL [facility] ALP [Catalytic activity/Vol] 151 U/L High 40 - 150 U/L [facility] ALT [Catalytic activity/Vol] 21 U/L 0 - 40 U/L [facility] Anion gap [Moles/Vol] 12 mmol/L 10 - 20 mmol/L [facility] AST [Catalytic activity/Vol] 40 U/L 0 - 45 U/L [facility] Bilirubin [Mass/Vol] 3.3 mg/dL High 0 - 1.3 mg/dL [facility] Calcium [Mass/Vol] 8.7 mg/dL 8.4 - 10. 2 mg/dL [facility] Chloride [Moles/Vol] 95 mmol/L Low 98 - 10 8 mmol/L [facility] Creatinine [Mass/Vol] 0.21 mg/dL Low 0.60 - 1.20 [facility] GFR/1.73 sq M predicted among non-blacks MDRD (S/P/Bld) [Vol rate/Area] The eGFR should be used for monitoring renal function only and not for medication dosing. [facility] GFR/1.73 sq M.predicted CKD-EPI (S/P/Bld) [Vol rate/Area] 135 >=60 mL/min/1.7 3 m2 [facility] Glucose [Mass/Vol] 168 mg/dL High 65 - 99 mg/dL [facility] HCO3 [Moles/Vol] 31 mmol/L 21 - 32 mmol/L [facility] Interpretation and review of laboratory results Abnormal [facility] Potassium [Moles/Vol] 3.6 mmol/L 3.5 - 5.1 mmol/L [facility] Protein [Mass/Vol] 4.2 g/dL Low 6 - 8 g/dL [facility] alth Sodium [Moles/Vol] 134 mmol/L Low 135 - 145 mmol/L [facility] Urea nitrogen [Mass/Vol] 13 mg/dL 8 - 25 mg/dL [facility] Urea nitrogen/Creatinine [Mass ratio] 61.9 mg/mg High [facility] POC Glucoseon 10-23-2019 Glucose [Mass/Vol] 368 mg/dL High 65 - 99 mg/dL [facility] Interpretation and review of laboratory results Abnormal [facility] Glucose [Mass/Vol] 394 mg/dL High 65 - 99 mg/dL [facility] Interpretation and review of laboratory results Abnormal [facility] Glucose [Mass/Vol] 356 mg/dL High 65 - 99 mg/dL [facility] Interpretation and review of laboratory results Abnormal [facility] Glucose [Mass/Vol] 344 mg/dL High 65 - 99 mg/dL [facility] Interpretation and review of laboratory results Abnormal [facility] Glucose [Mass/Vol] 127 mg/dL High 65 - 99 mg/dL [facility] Interpretation and review of laboratory results Abnormal [facility] Glucose [Mass/Vol] 157 mg/dL High 65 - 99 mg/dL [facility] Interpretation and review of laboratory results Abnormal [facility] PT/INRon 10-23-2019 INR Coag (PPP) [Relative time] 1.7 {INR} High [facility] Interpretation and review of laboratory results Abnormal [facility] PT Coag (PPP) [Time] 19.6 s High [facility] During the induction phase of oral anticoagulation, the INR may not reflect the anticoagulation status of the patient. Therapeutic ranges for INR's are: Most clinical situations: INR 2.0-3.0 Mechanical Prosthetic Valve: INR 2.5-3.5 Critical: INR >5.0 [facility] ANAon 10-22-2019 Interpretation and review of laboratory results Normal [facility] Nuclear Ab Hep2 substrate (S) [Titer] <80 <80 Titer [facility] Bilirubin, Directon 10-22-19 20 Bilirubin.conjugated [Mass/Vol] 1.5 mg/dL High 0 - 0.4 mg/dL [facility] Interpretation and review of laboratory results Abnormal [facility] CBCon 10-22-2019 Erythrocyte distribution width (RBC) [Entitic vol] 15.2 % High 11.6 - 14.8 % [facility] Hematocrit (Bld) [Volume fraction] 35.1 % Low 36 - 46 % [facility] Hemoglobin (Bld) [Mass/Vol] 11.5 g/dL Low 12 - 16 g/dL [facility] Interpretation and review of laboratory results Abnormal [facility] MCH (RBC) [Entitic mass] 35.3 pg High 26 - 34 pg [facility] MCHC (RBC) [Mass/Vol] 32.8 g/dL 31 - 37 g/dL [facility] MCV (RBC) [Entitic vol] 107.7 fL High 80 - 100 fL [facility] Nucleated RBC (Bld) [#/Vol] 0.00 10*3/uL [facility] Nucleated RBC/100 WBC (Bld) [Ratio] 0.0 % [facility] Platelet mean volume (Bld) [Entitic vol] 10.9 fL 9.4 - 12.4 fL [facility] Platelets (Bld) [#/Vol] 31 10*3/uL Critically low [facility] Comment on above: Previous result call ed RBC (Bld) [#/Vol] 3.26 10*6/uL Low [facility] WBC (Bld) [#/Vol] 1.61 10*3/uL Low [facility] Comprehensive Metabolic Pane [place] 10-22-2019 Albumin [Mass/Vol] 2.1 g/dL Low 3.2 - 5.2 g/dL [facility] ALP [Catalytic activity/Vol] 153 U/L High 40 - 150 U/L [facility] ALT [Catalytic activity/Vol] 21 U/L 0 - 40 U/L [facility] Anion gap [Moles/Vol] 11 mmol/L 10 - 20 mmol/L [facility] AST [Catalytic activity/Vol] 39 U/L 0 - 45 U/L [facility] Bilirubin [Mass/Vol] 3.7 mg/dL High 0 - 1.3 mg/dL [facility] Calcium [Mass/Vol] 8.5 mg/dL 8.4 - 10. 2 mg/dL [facility] Chloride [Moles/Vol] 96 mmol/L Low 98 - 10 8 mmol/L [facility] Creatinine [Mass/Vol] 0.31 mg/dL Low 0.60 - 1.20 [facility] GFR/1.73 sq M predicted among non-blacks MDRD (S/P/Bld) [Vol rate/Area] The eGFR should be used for monitoring renal function only and not for medication dosing. [facility] GFR/1.73 sq M.predicted CKD-EPI (S/P/Bld) [Vol rate/Area] 118 >=60 mL/min/1.7 3 m2 [facility] Glucose [Mass/Vol] 171 mg/dL High 65 - 99 mg/dL [facility] HCO3 [Moles/Vol] 33 mmol/L High 21 - 32 mmol/L [facility] Interpretation and review of laboratory results Abnormal [facility] Potassium [Moles/Vol] 3.6 mmol/L 3.5 - 5.1 mmol/L [facility] Protein [Mass/Vol] 4.2 g/dL Low 6 - 8 g/dL [facility]th Sodium [Moles/Vol] 136 mmol/L 135 - 145 mmol/L [facility] Urea nitrogen [Mass/Vol] 10 mg/dL 8 - 25 mg/dL [facility] Urea nitrogen/Creatinine [Mass ratio] 32.3 mg/mg High [facility] NONGYN CYTOLOGYon 10-22-2019 Case Report Medical Cytology Rep ort Case: [id number] Authorizing Provider: Katalina Jaimes CNP Collected: 10/18/2019 09:15 PM Ordering Location: [facility] Received: 10/21/2019 08:57 AM Hospital Interventional Radiology Pathologist: Deloris Aguilera MD Specimen: Paracentesis [facility] Clinical information f0syyVXtUXVzmZXnMlS yMDAwXG Kio0jqDEWvlXIcAeWcDnUuRjWq JvddiSChPCSmEpSsp6ctp617eY Ane7sqNTXbHsL0yVHxVACvdJMr L799z0cni7ziczXphOC2SNGbLY I9STtelkMajcJ8MWfheOBgMbQ7 HPwtdpFkQAzakyKvbxHyVvs0JU LeW828BKH1kAjro8rgKUM4PHFd YVItCiNpHg6wtYWwN503IMCtIQ CTSRQaiSs9RUBanzYcgeIqbLRK m788G853m5zvGDAoajEpbVjYqm urs2ucB967YMJriZLnnbNvCoEk GGQctOIrwDR1WLGnJR2otxlpXn NtBS3cdexrLyQgPD7zqrj1IZZ4 HDkqLOXwDnE6BRHlnYGqFNZjhZ kqFQaae361PCL4ZEcjv1zel4mu iEBiExh9CLZoKyDcJxvbUHdeq7 Sta6cfKOIzkz2hZUT6hKGycLzd h2A9nENaAFRytMFidqFhCVQnTa L4HSnmSO8bzt53USHvNZI4vb6c kXFjmRnfycJteBRtSGikO8BcEU Fum265LEApI8FfJUJqw9Z2uxDc MnRuLSCpkNZ9apU5QIGnITr7sN RpnfD5toRkwRJxK2irjD15EqJq gCWvQ3XqqS31NvZoaOTtW8VwgU 5hKCItBA3zwyhdd5krFVQ5JZmj CANoVXY9XlUxSGJfl1CnpqkxWE Qox7TuL0LxbSpqJ19jfEwqG53h BKSduBmudC2hnSsqcK6aThGjEl MyNFxxbFxwbGFpblxmMFxmczIw NQvoofnqUPYzQCsmK8cyMwNjIC OpiUueTAlvw8IqLZKsAGAtMbBe IM1ylCGpuO== [facility] Interpretation Specimen A Lymphocytosis [facility] Comment on above: The fluid shows smal l mature-appearing lymphocytes and reactive mesothelial cells. Pathology report gross observation Narrative h2mruWCiRLTumKAgGtDoZQUnRG Dro8qhJXSsmNMvQqGiSwYsEyMm RfospWAiWCAwQuNhy5tif489nM Xol9ziBTIcXlQ4eGUxSIKsoFRc N841COAxEIrds8xgv4WxRDZpxB Jrh1J4PKLQayskpKf2nMtxN90t o8B1NqgeV0mtTHUyKUkqIFPdIB qvlCMzIGR1COGbIXW1QGgvaxEr mbK3SLfuvGTtKvM3VIqumbMyVg X3BGfvQWEhXgP7ZZJwfEEbBRsf I613TNS2tPmpj9fzSLH1RVEmKJ QoOgCaNx3mbMClF144YVNrGHFZ PYNlcWh6ZJIkmdTainKnuRLHv9 21H394y3hhMTPagvOdjBlAnnrs y8pbC944ZQWmiUFjwhJnQtLnSF IeoZVntHV2ENUoRA6ledtuPmFy AT9cksiqRnTaSS6vtdq5DTR6YS lwFGEsYmY4GBQuiEFrNLZylGuz FPiqk024NMA0JTzuc5gaj1ejtN StKqy4KVZxZfIrFwghONtxl1Uv q8avQWOyOeU9AYjrMV0txk08UY AsFDP7xp9mdICtvTeybpNhqUWo YRtaT3HzVJRvs678PYYeY1EyMQ Pun0H4beKwSuPbJZDtnWD1ueN2 EYUiQMu3iPAsxuQ7vpYcfDHqF1 xsnV13PgSpvDFbX0YkxS56NyAh zVIyP2AlfH9zHSBjHB7ovouod5 pgRHW2DBmhWXQjECP5WvImWEXu y9QkjtbcWMUek4SxG3NflIyuP6 3muEqwT50wZNCkePtvqX5tvMbj pV7sJgBrQgTuECjxdOizeUShtf xmMFxmczIwXHBsYWluXGYxXGZz GuIhEpH1OT0VZZJts7StiKP7XJ dlj8inBcy8qFQyFCvpqYZgwsfd MVxmczIwXGxhbmcxMDMzXGhpY2 zxZaKoGOPxpEymLTnrc4TcCXCv LJEdADvmqkRiBTVmo5SiI8K9RP GpGAwmn4cbMNFiJFpch6SeOKuX PEMKDP6JCB2nmVW1AOxLUILZP8 lPaJW7KenblCC7HI83OGEhQRYm zJUpVZpmN404TFImOLpqHEZySF ZzMjBcbGFuZzEwMzNcaGljaFxm IRheFcOeOFNhZQjoM7reHkMaO0 YxXGZzMjBccHJvdGVjdCAxIEN5 iV2lvTkqMDRxnBEzZHTLyfuvmQ Iyj9BckO6oWSlvyCBtzkirPNzj usApVKrqjjyqTCNzNZaxH1jkWv OuPSJfxRkqZQxbz0NdWYFiNBAf KAymatJuFQBfc8DyV4S1MVWbIJ tsm8buXSKxKScol7MoWSvZBJXL LV2MMV9icKC6JTwPKJMRETiyBW T4UPtziQH7z6knsSBtf0j0RLdc BAH3qRnctZNdzxydPGjechTkHP vcJQL5mB2tlIfhYUZsfLRcPLEH gfexmCQul6UhzN2xJNjoJCElWZ xwYXIgMSBTbWVhciBzbGlkZSwg NMvpSo1ClJcsXTR0MLsqXXUaTZ WjelFkZOZdtS2ZqkTdIUUfuWRg ZPNGYAIwu1TntG8zNSthdPUnFU IrU8QxzNCwc4NqNUxlpOnkEGCT YbOqz4DfuI3uOTNrgMgmDMjjuV FyXHBsYWluXGYxXGZzMjBcbGFu ZzEwMzNcaGljaFxmMVxkYmNoXG ZlINmqX7bnKnUjN6GhELWvVsHe pYHwnEXrkNrtSakmuSG2FHnuPm wotO2vfBFGMTWVIwgULomcosTq GA1RPMENPlUPDZ79Fdn7TYD5Sf shxKtfGfxounLenHEdWgTmaG7t iRvxmK8aCwTaCsMdTLmhSK0oYA TtY5ujiHBeQQHtYBUeJ7esEzSo yY2djDwqWOetBrJqJiCgNFmulz 19PXV7SRPmM0l9v6GguE3fs0yp ZGUsIFdyaWdodCBzdGFpbmVkXH BsYWluXGYxXGZzMjBcbGFuZzEw MzNcaGljaFxmMVxkYmNoXGYxXG pqT4grJeOfN9ToHEMsEwVhsGDq vBKfoXtcEcnmeGD1MMznJzvvmP 7tfTWDHCEVGsaXUbgssjAcHQ2R WQBIAC8NrMY7EsxtfFD8Dl40TS WjTUVhaVSkOHorR890ZRCpEVqg XGYxXGZzMjAgLFxwYXJccGFyZF xwbGFpblxmMFxmczIwXHBsYWlu XZYpCKPdZzCcHVMVpGQgs3Qvxs CrvZraAEnjG9HgA3l7OYK2GDvb WHZuhWWgVERvtyKwu0HkHXHyUU A6IVxgEAknJSV9UKfwaQL9AQlu bC72wKXyTUm7yaNwagowkRf8pC KajCdaZONsxBdoxF2yCjSzKyOs MFxwbGFpblxmMVxmczIwXGxpbm PuB4RyA9hnEA1bXYLhZ1Hik0im HqHcyeEcKFTqlPEgsYVOO0DeEZ 0inmbutUBiPc4snBXzLDJ7JkUZ qHTongPbYOXcFCT2vF2igKD0WG lje8DrlNNsUA2wKdXaCXAXcWAt yMHvD3ayWww2YSAbWt8oZXVXk0 t2uIT2faswQ1uxQFGfJAmqoTGe blxmMVxmczMyXGxhbmcxMDMzXG ymY7xdZhDaWSUpiKxePEjph8Uf XGYxXGZzMzJccGFyXHBhcmRccG rxeG3cPvDxPwCiPUubcHRhphmu WXrxfzL4ZFrjabccNUTaZCyeG0 xfJgOsNKMzzXkoIRyfk8MgUMGp RGCtHxEygPGgOMGiZ19WFjHHWN LJJ78KNERZTFWSD7VNN6vYOVH8 TfaelUR7BH6hROK5ZAgtBFUaI0 2YFcLQFFHVE08EGTFNYADEP1ZQ GYJASIlSH5ZUIC6UJLQBYQCOGH 4XILpFEgNGLQlPQ7GNIL3YNUBE KCASTK2IWkCbELpZR4IJU2aHEF XwTKCXISRLCYGqPpJJKY6qWKj5 Q7eqDUOMBORQFH6eMm4XL0vuAJ ZzCMhfTKQ3ZXl3Ygy2B3tjAWAE HQQYZW0pCk5IR6urELMwCAzkSU J8CWg0QBFMUDPTGN9ZCCPCI09S NFNXXDQEJ9YBRXZYPnIPEDPFD0 2EWPOWGJCCH3QJZ9oJRQVQFmUI TSPQB61JKQCKPTBWZ0ZGCMNHBE VYOhOEEqBNMJ2JZJKBBSTJJC8E EWiJBjIwNPSUT9PWInSZO2aeJY GLTADLBPBdGD3UfS== [facility] POC Glucoseon 10-22-2019 Glucose [Mass/Vol] 273 mg/dL High 65 - 99 mg/dL [facility] Interpretation and review of laboratory results Abnormal [facility] Glucose [Mass/Vol] 191 mg/dL High 65 - 99 mg/dL [facility] Interpretation and review of laboratory results Abnormal [facility] Glucose [Mass/Vol] 209 mg/dL High 65 - 99 mg/dL [facility] Interpretation and review of laboratory results Abnormal [facility] Glucose [Mass/Vol] 171 mg/dL High 65 - 99 mg/dL [facility] Interpretation and review of laboratory results Abnormal [facility] PT/INRon 10-22-2019 INR Coag (PPP) [Relative time] 1.9 {INR} High [facility] Interpretation and review of laboratory results Abnormal [facility] PT Coag (PPP) [Time] 20.9 s High [facility] During the induction phase of oral anticoagulation, the INR may not reflect the anticoagulation status of the patient. Therapeutic ranges for INR's are: Most clinical situations: INR 2.0-3.0 Mechanical Prosthetic Valve: INR 2.5-3.5 Critical: INR >5.0 [facility] AFP TUMOR MARKERon 0 AFP.tumor marker [Mass/Vol] 1.9 ng/mL 0 - 15 ng/mL [facility] Interpretation and review of laboratory results Normal [facility] Assay performed by [email or web address] Immunoassay. [facility] AFP.tumor marker [Mass/Vol] 2.0 ng/mL 0 - 15 ng/mL [facility] Interpretation and review of laboratory results Normal [facility] Assay performed by [employer] Immunoassay. [facility] ANTI-SMOOTH MUSCLE ANTIBODYo n 10-21-2019 Smooth muscle Ab IF (S) [Titer] <20 <20 Titer [facility] ANTIMITOCHONDRIAL ANTIBODYon 10-21-2019 Mitochondria Ab (S) [Titer] <20 <20 Titer [facility] BODY FLUID CELL COUNT WITH D IFFERENTIALon 10-21-2019 Appearance (Body fld) Cloudy [facility] Color (Body fld) Yellow [facility] Interpretation and review of laboratory results Abnormal [facility] Lymphocytes/100 WBC (Body fld) 85 % High 0 - 0 % [facility] Mesothelial cells/100 WBC (Body fld) 10 % High 0 - 0 % [facility] Comment on above: Mesothelial cells an d/or macrophages. Monocytes/100 WBC (Body fld) 3 % High 0 - 0 % [facility] Neutrophils/100 WBC (Body fld) 2 % 0 - 25 % [facility] Nucleated cells Auto (Body fld) [#/Vol] 698 High [facility] Comment on above: WBC/Nuc cell count i ncludes mesothelial and other non-WBC nucleated cells as reflected in the differential. Specimen contains clots and/or clumps of cells--cell count results may be affected. RBC Auto (Body fld) [#/Vol] 5655 High [facility] Reactive mesothelial cells present. Reviewed by Pathologist: Nicki Aguilera MD [facility] Bilirubin, Directon 10-21-19 20 Bilirubin.conjugated [Mass/Vol] 1.5 mg/dL High 0 - 0.4 mg/dL [facility] Interpretation and review of laboratory results Abnormal [facility] CBCon 10-21-2019 Erythrocyte distribution width (RBC) [Entitic vol] 15.2 % High 11.6 - 14.8 % [facility] Hematocrit (Bld) [Volume fraction] 32.8 % Low 36 - 46 % [facility] Hemoglobin (Bld) [Mass/Vol] 11.2 g/dL Low 12 - 16 g/dL [facility] Interpretation and review of laboratory results Abnormal [facility] MCH (RBC) [Entitic mass] 36.1 pg High 26 - 34 pg [facility] MCHC (RBC) [Mass/Vol] 34.1 g/dL 31 - 37 g/dL [facility] MCV (RBC) [Entitic vol] 105.8 fL High 80 - 100 fL [facility] Nucleated RBC (Bld) [#/Vol] 0.00 10*3/uL [facility] Nucleated RBC/100 WBC (Bld) [Ratio] 0.0 % [facility] Platelet mean volume (Bld) [Entitic vol] 12.6 fL High 9.4 - 12.4 fL [facility] Comment on above: Peripheral smear rev iewed manually Platelets (Bld) [#/Vol] 29 10*3/uL Critically low [facility] Comment on above: Previous result call ed RBC (Bld) [#/Vol] 3.10 10*6/uL Low [facility] WBC (Bld) [#/Vol] 1.46 10*3/uL Low [facility] Comprehensive Metabolic Pane [place] 10-21-2019 Albumin [Mass/Vol] 2.1 g/dL Low 3.2 - 5.2 g/dL [facility] ALP [Catalytic activity/Vol] 150 U/L 40 - 150 U/L [facility] ALT [Catalytic activity/Vol] 19 U/L 0 - 40 U/L [facility] Anion gap [Moles/Vol] 13 mmol/L 10 - 20 mmol/L [facility] AST [Catalytic activity/Vol] 37 U/L 0 - 45 U/L [facility] Bilirubin [Mass/Vol] 3.8 mg/dL High 0 - 1.3 mg/dL [facility] Calcium [Mass/Vol] 8.3 mg/dL Low 8.4 - 10. 2 mg/dL [facility] Chloride [Moles/Vol] 97 mmol/L Low 98 - 10 8 mmol/L [facility] Creatinine [Mass/Vol] mg/dL Low 0.60 - 1.20 mg/dL [facility] GFR/1.73 sq M predicted among non-blacks MDRD (S/P/Bld) [Vol rate/Area] The eGFR should be used for monitoring renal function only and not for medication dosing. [facility] GFR/1.73 sq M.predicted CKD-EPI (S/P/Bld) [Vol rate/Area] [facility] Comment on above: Unable to calculate; a result component is outside measurable limits. Glucose [Mass/Vol] 243 mg/dL High 65 - 99 mg/dL [facility] HCO3 [Moles/Vol] 29 mmol/L 21 - 32 mmol/L [facility] Interpretation and review of laboratory results Abnormal [facility] Potassium [Moles/Vol] 3.6 mmol/L 3.5 - 5.1 mmol/L [facility] Protein [Mass/Vol] 4.0 g/dL Low 6 - 8 g/dL [facility] Sodium [Moles/Vol] 135 mmol/L 135 - 145 mmol/L [facility] Urea nitrogen [Mass/Vol] 10 mg/dL 8 - 25 mg/dL [facility] Urea nitrogen/Creatinine [Mass ratio] [facility] Comment on above: Unable to calculate; a result component is outside measurable limits. Magnesium Levelon 10-21-2019 Interpretation and review of laboratory results Abnormal [facility] Magnesium [Mass/Vol] 1.4 mg/dL Low 1.6 - 2 .4 mg/dL [facility] Otheron 10-21-2019 Interpretation and review of laboratory results Normal [facility] POC Glucoseon 10-21-2019 Glucose [Mass/Vol] 246 mg/dL High 65 - 99 mg/dL [facility] Interpretation and review of laboratory results Abnormal [facility] Glucose [Mass/Vol] 324 mg/dL High 65 - 99 mg/dL [facility] Interpretation and review of laboratory results Abnormal [facility] Glucose [Mass/Vol] 336 mg/dL High 65 - 99 mg/dL [facility] Interpretation and review of laboratory results Abnormal [facility] Glucose [Mass/Vol] 247 mg/dL High 65 - 99 mg/dL [facility] Interpretation and review of laboratory results Abnormal [facility] PT/INRon 10-21-2019 INR Coag (PPP) [Relative time] 2.0 {INR} [facility] Interpretation and review of laboratory results Abnormal [facility] PT Coag (PPP) [Time] 21.8 s [facility] During the induction phase of oral anticoagulation, the INR may not reflect the anticoagulation status of the patient. Therapeutic ranges for INR's are: Most clinical situations: INR 2.0-3.0 Mechanical Prosthetic Valve: INR 2.5-3.5 Critical: INR >5.0 [facility] MR ABD AND MRCP WITH AND WIT HOUT CONTRASTon 10-20-2019 MR ABD AND MRCP WITH AND WITHOUT CONTRAST EXAMINATION: MR ABD AND MRCP WITH AND WITHOUT CONTRAST HISTORY: ORDERING SYSTEM PROVIDED HISTORY: f/u RUQ U/S. Questionable hepatic lesion, PV thrombus, biliary dilation, TECHNOLOGIST PROVIDED HISTORY: Illness/Other Reason for exam: f/u RUQ U/S. Questionable hepatic lesion, PV thrombus, biliary dilation Encounter Type: Ongoing Additional signs and symptoms: f/u RUQ U/S. Questionable hepatic lesion, PV thrombus, biliary dilation ORDERING SYSTEM PROVIDED DIAGNOSIS CODES: 64 y/o COMPARISON: Right upper quadrant ultrasound 10/18/2019, CT pulmonary artery 10/17/2019. TECHNIQUE: Multiplanar sequences according to standard abdominal MR/MRCP protocol with and without the administration of 12 mL of gadolinium contrast. CONTRAST: GADOTERATE MEGLUMINE 0.5 MMOL/ML (376.9 MG/ML) INTRAVENOUS SOLUTION - 12 mL, FINDINGS: Moderate left and small right pleural effusion and superimposed atelectasis. Micronodular contour of the subcapsular aspect of the liver. Size is unremarkable. Diffuse loss of signal on opposed-phase imaging. Several T2 hyperintense, T1 hypointense lesions are present in the left and right hepatic lobe. Of note, the lesion of interest is 12 x 12 mm well-circumscribed, and absent of enhancement on arterial and late phase to at least 5 minutes and appears to be biliary in etiology on MRCP. No restricted diffusion. Dilation of the left and right intrahepatic duct with confluent T2 hyperintense nonenhancing appearance of the ducts measuring 16 x 15 mm. Several segmental cysts in the distal aspect of the intrahepatic biliary tree are present. The CBD is smooth having a few areas of cystic dilation arising from the mid and distal aspect. No filling defects identified to suggest the presence of a common bile stone. Multiple filling defects within the gallbladder consistent with nonobstructive calculi. The cystic duct is nondilated. Spleen is normal in size. Kidneys and adrenals are normal. Several subcentimeter nonenhancing T2 hyperintense cysts in the left and right kidney. Visualized esophagus, stomach, small bowel, large bowel are normal. Small-sized ascitic volume in a subcapsular, perisplenic distribution. Negative for aggressive-appearing osseous lesions or soft tissue abnormalities. IMPRESSION: 1. Multiple communicating intra- and intrahepatic ductal cysts to include the suspicious lesion in the left hepatic lobe; type 4 biliary cyst. 2. Micronodular contour and fibrosis versus hepatic steatosis of the liver. No arterially enhancing lesion. Small volume ascites. 3. Moderate left and small right pleural effusion and superimposed atelectasis. 4. Nonobstructive cholelithiasis. 5. Benign left and right renal cysts. [employer] Workstation ID: [id number] Dictated by: MACY DIAZ on MonOct 20, 2019 4:19:41 PM EDT Transcribed by: FIFI RAMOS on MonOct 20, 2019 4:26:29 PM EDT Finalized by: MACY DIAZ on MonOct 20, 2019 4:33:35 PM EDT Normal [facility] Comment on above: Order Comment: Injur y/Trauma or Illness?:Illness/Other How long have you had these symptoms (acute/chronic)?:Acute Reason for exam?:f/u RUQ U/S. Questionable hepatic lesion, PV thrombus, biliary dilation Type of Exam?:Ongoing Additional signs and symptoms?:f/u RUQ U/S. Questionable hepatic lesion, PV thrombus, biliary dilation MR Abdomen And MRCP With And Without Contraston 10-20-2019 EXAMINATION: MR ABD AND MRCP WITH AND WITHOUT CONTRAST HISTORY: ORDERING SYSTEM PROVIDED HISTORY: f/u RUQ U/S. Questionable hepatic lesion, PV thrombus, biliary dilation, TECHNOLOGIST PROVIDED HISTORY: Illness/Other Reason for exam: f/u RUQ U/S. Questionable hepatic lesion, PV thrombus, biliary dilation Encounter Type: Ongoing Additional signs and symptoms: f/u RUQ U/S. Questionable hepatic lesion, PV thrombus, biliary dilation ORDERING SYSTEM PROVIDED DIAGNOSIS CODES: 64 y/o COMPARISON: Right upper quadrant ultrasound 10/18/2019, CT pulmonary artery 10/17/2019. TECHNIQUE: Multiplanar sequences according to standard abdominal MR/MRCP protocol with and without the administration of 12 mL of gadolinium contrast. CONTRAST: GADOTERATE MEGLUMINE 0.5 MMOL/ML (376.9 MG/ML) INTRAVENOUS SOLUTION - 12 mL, FINDINGS: Moderate left and small right pleural effusion and superimposed atelectasis. Micronodular contour of the subcapsular aspect of the liver. Size is unremarkable. Diffuse loss of signal on opposed-phase imaging. Several T2 hyperintense, T1 hypointense lesions are present in the left and right hepatic lobe. Of note, the lesion of interest is 12 x 12 mm well-circumscribed, and absent of enhancement on arterial and late phase to at least 5 minutes and appears to be biliary in etiology on MRCP. No restricted diffusion. Dilation of the left and right intrahepatic duct with confluent T2 hyperintense nonenhancing appearance of the ducts measuring 16 x 15 mm. Several segmental cysts in the distal aspect of the intrahepatic biliary tree are present. The CBD is smooth having a few areas of cystic dilation arising from the mid and distal aspect. No filling defects identified to suggest the presence of a common bile stone. Multiple filling defects within the gallbladder consistent with nonobstructive calculi. The cystic duct is nondilated. Spleen is normal in size. Kidneys and adrenals are normal. Several subcentimeter nonenhancing T2 hyperintense cysts in the left and right kidney. Visualized esophagus, stomach, small bowel, large bowel are normal. Small-sized ascitic volume in a subcapsular, perisplenic distribution. Negative for aggressive-appearing osseous lesions or soft tissue abnormalities. [facility], Rad In Fu ji Speechq - 10/20/2019 4:36 PM EDT EXAMINATION: MR ABD AND MRCP WITH AND WITHOUT CONTRAST HISTORY: ORDERING SYSTEM PROVIDED HISTORY: f/u RUQ U/S. Questionable hepatic lesion, PV thrombus, biliary dilation, TECHNOLOGIST PROVIDED HISTORY: Illness/Other Reason for exam: f/u RUQ U/S. Questionable hepatic lesion, PV thrombus, biliary dilation Encounter Type: Ongoing Additional signs and symptoms: f/u RUQ U/S. Questionable hepatic lesion, PV thrombus, biliary dilation ORDERING SYSTEM PROVIDED DIAGNOSIS CODES: 64 y/o COMPARISON: Right upper quadrant ultrasound 10/18/2019, CT pulmonary artery 10/17/2019. TECHNIQUE: Multiplanar sequences according to standard abdominal MR/MRCP protocol with and without the administration of 12 mL of gadolinium contrast. CONTRAST: GADOTERATE MEGLUMINE 0.5 MMOL/ML (376.9 MG/ML) INTRAVENOUS SOLUTION - 12 mL, FINDINGS: Moderate left and small right pleural effusion and superimposed atelectasis. Micronodular contour of the subcapsular aspect of the liver. Size is unremarkable. Diffuse loss of signal on opposed-phase imaging. Several T2 hyperintense, T1 hypointense lesions are present in the left and right hepatic lobe. Of note, the lesion of interest is 12 x 12 mm well-circumscribed, and absent of enhancement on arterial and late phase to at least 5 minutes and appears to be biliary in etiology on MRCP. No restricted diffusion. Dilation of the left and right intrahepatic duct with confluent T2 hyperintense nonenhancing appearance of the ducts measuring 16 x 15 mm. Several segmental cysts in the distal aspect of the intrahepatic biliary tree are present. The CBD is smooth having a few areas of cystic dilation arising from the mid and distal aspect. No filling defects identified to suggest the presence of a common bile stone. Multiple filling defects within the gallbladder consistent with nonobstructive calculi. The cystic duct is nondilated. Spleen is normal in size. Kidneys and adrenals are normal. Several subcentimeter nonenhancing T2 hyperintense cysts in the left and right kidney. Visualized esophagus, stomach, small bowel, large bowel are normal. Small-sized ascitic volume in a subcapsular, perisplenic distribution. Negative for aggressive-appearing osseous lesions or soft tissue abnormalities. IMPRESSION: 1. Multiple communicating intra- and intrahepatic ductal cysts to include the suspicious lesion in the left hepatic lobe; type 4 biliary cyst. 2. Micronodular contour and fibrosis versus hepatic steatosis of the liver. No arterially enhancing lesion. Small volume ascites. 3. Moderate left and small right pleural effusion and superimposed atelectasis. 4. Nonobstructive cholelithiasis. 5. Benign left and right renal cysts. [employer] Workstation ID: [id number] [facility] 1. Multiple communic ating intra- and intrahepatic ductal cysts to include the suspicious lesion in the left hepatic lobe; type 4 biliary cyst. 2. Micronodular contour and fibrosis versus hepatic steatosis of the liver. No arterially enhancing lesion. Small volume ascites. 3. Moderate left and small right pleural effusion and superimposed atelectasis. 4. Nonobstructive cholelithiasis. 5. Benign left and right renal cysts. [employer] Workstation ID: [id number] [facility] Magnesium Levelon 10-20-2019 Interpretation and review of laboratory results Abnormal [facility] Magnesium [Mass/Vol] 1.4 mg/dL Low 1.6 - 2 .4 mg/dL [facility] POC Glucoseon 10-20-2019 Glucose [Mass/Vol] 248 mg/dL High 65 - 99 mg/dL [facility] Interpretation and review of laboratory results Abnormal [facility] Glucose [Mass/Vol] 172 mg/dL High 65 - 99 mg/dL [facility] Interpretation and review of laboratory results Abnormal [facility] Glucose [Mass/Vol] 237 mg/dL High 65 - 99 mg/dL [facility] Interpretation and review of laboratory results Abnormal [facility] Glucose [Mass/Vol] 204 mg/dL High 65 - 99 mg/dL [facility] Interpretation and review of laboratory results Abnormal [facility] PT/INRon 10-20-2019 INR Coag (PPP) [Relative time] 2.1 {INR} High [facility] Interpretation and review of laboratory results Abnormal [facility] PT Coag (PPP) [Time] 22.9 s [facility] During the induction phase of oral anticoagulation, the INR may not reflect the anticoagulation status of the patient. Therapeutic ranges for INR's are: Most clinical situations: INR 2.0-3.0 Mechanical Prosthetic Valve: INR 2.5-3.5 Critical: INR >5.0 [facility] Albumin, Body Fluidon 2019 Albumin (Body fld) [Mass/Vol] <1.0 g/dL [facility] Bilirubin, Directon 10-19-19 20 Bilirubin.conjugated [Mass/Vol] 2.3 mg/dL High 0 - 0.4 mg/dL [facility] Interpretation and review of laboratory results Abnormal [facility] CBCon 10-19-2019 Erythrocyte distribution width (RBC) [Entitic vol] 15.7 % High 11.6 - 14.8 % [facility] Hematocrit (Bld) [Volume fraction] 35.3 % Low 36 - 46 % [facility] Hemoglobin (Bld) [Mass/Vol] 11.9 g/dL Low 12 - 16 g/dL [facility] Interpretation and review of laboratory results Abnormal [facility] MCH (RBC) [Entitic mass] 35.5 pg High 26 - 34 pg [facility] MCHC (RBC) [Mass/Vol] 33.7 g/dL 31 - 37 g/dL [facility] MCV (RBC) [Entitic vol] 105.4 fL High 80 - 100 fL [facility] Nucleated RBC (Bld) [#/Vol] 0.00 10*3/uL [facility] Nucleated RBC/100 WBC (Bld) [Ratio] 0.0 % [facility] Platelet mean volume (Bld) [Entitic vol] 12.2 fL 9.4 - 12.4 fL [facility] Platelets (Bld) [#/Vol] 25 10*3/uL Critically low [facility] Comment on above: Previous result call ed Thrombocytopenia with no significant number of schistocytes ( RBC (Bld) [#/Vol] 3.35 10*6/uL Low [facility] WBC (Bld) [#/Vol] 1.95 10*3/uL Low [facility] Erythrocyte distribution width (RBC) [Entitic vol] 15.1 % High 11.6 - 14.8 % [facility] Hematocrit (Bld) [Volume fraction] 33.3 % Low 36 - 46 % [facility] Hemoglobin (Bld) [Mass/Vol] 11.0 g/dL Low 12 - 16 g/dL [facility] Interpretation and review of laboratory results Abnormal [facility] MCH (RBC) [Entitic mass] 34.9 pg High 26 - 34 pg [facility] [facility] MCHC (RBC) [Mass/Vol] 33.0 g/dL 31 - 37 g/dL [facility] MCV (RBC) [Entitic vol] 105.7 fL High 80 - 100 fL [facility] Nucleated RBC (Bld) [#/Vol] 0.00 10*3/uL [facility] Nucleated RBC/100 WBC (Bld) [Ratio] 0.0 % [facility] Platelet mean volume (Bld) [Entitic vol] 12.2 fL 9.4 - 12.4 fL [facility] Comment on above: Peripheral smear rev iewed manually Platelets (Bld) [#/Vol] 29 10*3/uL Critically low [facility] Comment on above: Previous result call ed RBC (Bld) [#/Vol] 3.15 10*6/uL Low [facility] WBC (Bld) [#/Vol] 1.83 10*3/uL Low [facility] Comprehensive Metabolic Pane [place] 10-19-2019 Albumin [Mass/Vol] 2.1 g/dL Low 3.2 - 5.2 g/dL [facility] ALP [Catalytic activity/Vol] 161 U/L High 40 - 150 U/L [facility] ALT [Catalytic activity/Vol] 19 U/L 0 - 40 U/L [facility] Anion gap [Moles/Vol] 12 mmol/L 10 - 20 mmol/L [facility] AST [Catalytic activity/Vol] 33 U/L 0 - 45 U/L [facility] Bilirubin [Mass/Vol] 5.5 mg/dL High 0 - 1.3 mg/dL [facility] Calcium [Mass/Vol] 8.3 mg/dL Low 8.4 - 10. 2 mg/dL [facility] Chloride [Moles/Vol] 99 mmol/L 98 - 10 8 mmol/L [facility] Creatinine [Mass/Vol] mg/dL Low 0.60 - 1.20 mg/dL [facility] GFR/1.73 sq M predicted among non-blacks MDRD (S/P/Bld) [Vol rate/Area] The eGFR should be used for monitoring renal function only and not for medication dosing. [facility] GFR/1.73 sq M.predicted CKD-EPI (S/P/Bld) [Vol rate/Area] [facility] Comment on above: Unable to calculate; a result component is outside measurable limits. Glucose [Mass/Vol] 348 mg/dL High 65 - 99 mg/dL [facility] HCO3 [Moles/Vol] 29 mmol/L 21 - 32 mmol/L [facility] Interpretation and review of laboratory results Abnormal [facility] Potassium [Moles/Vol] 3.7 mmol/L 3.5 - 5.1 mmol/L [facility] Protein [Mass/Vol] 4.2 g/dL Low 6 - 8 g/dL [facility] alth Sodium [Moles/Vol] 136 mmol/L 135 - 145 mmol/L [facility] Urea nitrogen [Mass/Vol] 9 mg/dL 8 - 25 mg/dL [facility] Urea nitrogen/Creatinine [Mass ratio] [facility] Comment on above: Unable to calculate; a result component is outside measurable limits. Glucose, Body Fluidon 2019 Glucose (Body fld) [Mass/Vol] 264 mg/dL [facility] LDH Body Fluidon 10-19-2019 LDH Lactate to pyruvate reaction (Body fld) [Catalytic activity/Vol] 53 U/L [facility] Otheron 10-19-2019 No established refer ence range. [facility] No established refer ence range. [facility] PERIPHERAL SMEAR REVIEW (LUIS ALBERTO HS ONLY)on 10-19-2019 Smear Review See Comment [facility] Comment on above: Reviewed for thrombo cytopenia. POC Glucoseon 10-19-2019 Glucose [Mass/Vol] 269 mg/dL High 65 - 99 mg/dL [facility] Interpretation and review of laboratory results Abnormal [facility] Glucose [Mass/Vol] 224 mg/dL High 65 - 99 mg/dL [facility] Interpretation and review of laboratory results Abnormal [facility] Glucose [Mass/Vol] 245 mg/dL High 65 - 99 mg/dL [facility] Interpretation and review of laboratory results Abnormal [facility] Glucose [Mass/Vol] 305 mg/dL High 65 - 99 mg/dL [facility] Interpretation and review of laboratory results Abnormal [facility] PT/INRon 10-19-2019 INR Coag (PPP) [Relative time] 2.0 {INR} High [facility] Interpretation and review of laboratory results Abnormal [facility] PT Coag (PPP) [Time] 22.0 s High [facility] During the induction phase of oral anticoagulation, the INR may not reflect the anticoagulation status of the patient. Therapeutic ranges for INR's are: Most clinical situations: INR 2.0-3.0 Mechanical Prosthetic Valve: INR 2.5-3.5 Critical: INR >5.0 [facility] Protein, Body Fluidon 2019 Protein (Body fld) [Mass/Vol] 0.7 g/dL [facility] [id number] 2019 Alpha 1 antitrypsin [Mass/Vol] 101.0 mg/dL 76 - 190 mg/dL [facility] Bilirubin, Directon 10-18-19 20 Bilirubin.conjugated [Mass/Vol] 2.1 mg/dL High 0 - 0.4 mg/dL [facility] Interpretation and review of laboratory results Abnormal [facility] CERULOPLASMINon 10-18-2019 Ceruloplasmin [Mass/Vol] 17.4 mg/dL 16 - 45 mg/dL [facility] CV IR PARACENTESISon 020 CV IR PARACENTESIS EXAMINATION: CV IR PARACENTESIS PROCEDURE(S) PERFORMED: 1. Ultrasound guided paracentesis HISTORY: 64-year-old with decompensated alcoholic cirrhosis. PHYSICIAN: Stefanie Mayer MD MEDICATIONS: Lidocaine, local TECHNIQUE AND FINDINGS: Informed written consent was obtained from the patient and witnessed following a discussion of the benefits and potential risks of the procedure which include but are not limited to bleeding and infection. The patient's concerns were addressed. The patient was brought to the procedure room and placed in a supine position in her hospital cart. A time-out and pause/confirm was performed according to hospital policy. The abdomen was scanned and 2 small pockets of ascites found 1 on the left and 1 on the right. The abdomen was prepped and draped in usual sterile fashion. All elements of maximal sterile barrier techniques were followed and when used sterile ultrasound preparation was utilized. Using ultrasound guidance, an appropriate skin access site on the left upper abdomen was selected and marked. The skin and underlying soft tissues were anesthetized with lidocaine down to the peritoneal surface. An 18 gauge Yueh needle was advanced into the peritoneal space, but fluid could not be obtained. Instead, appropriate skin access site at the right upper abdomen was selected and marked. The skin and underlying soft tissues were anesthetized with lidocaine down to the peritoneal surface. An 18 gauge Yueh needle was advanced into the peritoneal space. Once spontaneous return of peritoneal fluid was obtained, the central hub was removed and the remaining catheter attached to vacuum suction. 350 mL of dark orange cloudy ascites was aspirated using vacuum bottles. The catheter was removed and manual pressure applied until hemostasis was achieved. The patient tolerated the procedure well without evidence of immediate postprocedural complication. ESTIMATED BLOOD LOSS: None. COMPLICATIONS: None. IMPRESSION: 1. Small amount of ascites. 2. Technically successful ultrasound-guided paracentesis with aspiration of 350 mL of cloudy dark orange peritoneal fluid. Sample was submitted for further analysis per referring physicians. Workstation ID: [id number] Dictated by: STEFANIE MAYER on MonOct 18, 2019 9:42:44 PM EDT Transcribed by: STEFANIE MAYER on MonOct 18, 2019 9:42:44 PM EDT Finalized by: STEFANIE MAYER on MonOct 18, 2019 9:42:44 PM EDT Normal [facility] Comprehensive Metabolic Pane [place] 10-18-2019 Albumin [Mass/Vol] 2.4 g/dL Low 3.2 - 5.2 g/dL [facility] ALP [Catalytic activity/Vol] 170 U/L High 40 - 150 U/L [facility] ALT [Catalytic activity/Vol] 22 U/L 0 - 40 U/L [facility] Anion gap [Moles/Vol] 16 mmol/L 10 - 20 mmol/L [facility] AST [Catalytic activity/Vol] 37 U/L 0 - 45 U/L [facility] Bilirubin [Mass/Vol] 6.2 mg/dL High 0 - 1.3 mg/dL [facility] Calcium [Mass/Vol] 8.4 mg/dL 8.4 - 10. 2 mg/dL [facility] Chloride [Moles/Vol] 98 mmol/L 98 - 10 8 mmol/L [facility] Creatinine [Mass/Vol] mg/dL Low 0.60 - 1.20 mg/dL [facility] GFR/1.73 sq M predicted among non-blacks MDRD (S/P/Bld) [Vol rate/Area] The eGFR should be used for monitoring renal function only and not for medication dosing. [facility] GFR/1.73 sq M.predicted CKD-EPI (S/P/Bld) [Vol rate/Area] [facility] Comment on above: Unable to calculate; a result component is outside measurable limits. Glucose [Mass/Vol] 237 mg/dL High 65 - 99 mg/dL [facility] HCO3 [Moles/Vol] 27 mmol/L 21 - 32 mmol/L [facility] Interpretation and review of laboratory results Abnormal [facility] Potassium [Moles/Vol] 2.7 mmol/L Critically low 3.5 - 5.1 mmol/L [facility] Protein [Mass/Vol] 4.4 g/dL Low 6 - 8 g/dL [facility] alth Sodium [Moles/Vol] 138 mmol/L 135 - 145 mmol/L [facility] Urea nitrogen [Mass/Vol] 7 mg/dL Low 8 - 25 mg/dL [facility] Urea nitrogen/Creatinine [Mass ratio] [facility] Comment on above: Unable to calculate; a result component is outside measurable limits. ECG 12-LEADon 10-18-2019 Atrial Rate 104 BPM [facility] P [place] 77 degrees [facility] P-R Interval 166 ms [facility] Q-T Interval 338 ms [facility] QRS Duration 90 ms [facility] QTC Calculation (Bezet) 444 ms [facility] R [place] 73 degrees [facility] T [place] 31 degrees [facility] Ventricular Rate 104 BPM [facility] ECG Cart Interpretat ion see physician note for interpretation. Sinus tachycardia Otherwise normal ECG No previous ECGs available Confirmed by Physician, ED ([id number]), desk editor Ac Srivastava ([id number]) on 10/18/2019 8:34:41 AM [facility] ECHOCARDIOGRAM COMPLETEon ECHOCARDIOGRAM COMPLETE Transthoracic Echocardiogram Patient: ROMERO Ramesh [facility] Rec#: [id number] (Age): 1955(64y) Height: 165.1(cm)/64(in Study Date: 10/18/2019 Weight: 58.06(kg)/128(l Room#: 9005 BSA: [id number] Type: Inpatient Loc: [facility] Sex: F Reading: ORVILLE ANTHONY M.D. Referring: TANYA Renal Dialysis Technician: Reba Fernandez RDCS History: Asthma. COPD. Tobacco abuse. Diagnosis: ICD-10-PCS Dyspnea, unspecified (R06.00) CPT Code(s): ECHO COMPLETE W/ DOPPLER (09514) Study Quality The study quality is good. Summary: Patient identity verified and ID band on (pause and confirm). Current HP present on patient chart. Procedure explained and patient verified understanding. Consent obtained for procedure. Conclusions: There is normal left ventricular systolic function. There is septal flattening of the interventricular septum consistent with right ventricular volume or pressure overload. The estimated ejection fraction is 60-65%. The diastolic filling pattern is consistent with impaired relaxation and normal LA pressure (Mild diastolic dysfunction). The right ventricle is moderately dilated with mildly reduced systolic function. There is evidence of moderate to severe pulmonary hypertension, RVSP=55-60 mmHg. There is a moderate left pleural effusion and ascites. CTPA performed 10.17.2019 negative for pulmonary embolus. No prior study available for comparison. Findings Reason For Study: Dyspnea. Left Ventricle: The left ventricular chamber size and thickness is normal. There is normal left ventricular systolic function. The estimated ejection fraction is 60-65%. There is septal flattening of the interventricular septum consistent with right ventricular volume or pressure overload. The diastolic filling pattern is consistent with impaired relaxation and normal LA pressure (Mild diastolic dysfunction). Left Atrium: The left atrial chamber size is normal. There is no patent foramen ovale visualized. Right Ventricle: The right ventricle is moderately dilated. The right ventricular global systolic function is mildly reduced. Right Atrium: The right atrial cavity size is dilated. Aortic Valve: The aortic valve is trileaflet. The aortic valve leaflets are mildly thickened. There is no hemodynamically significant stenosis. There is no evidence of aortic regurgitation. Mitral Valve: The mitral valve leaflets appear normal. There is no evidence of mitral valve prolapse. There is no evidence of mitral stenosis. There is a trace of mitral regurgitation. Tricuspid Valve: The tricuspid valve leaflets are normal. There is no tricuspid stenosis. There is a trace tricuspid regurgitation. The right ventricular systolic pressure is estimated to be 55-60 mmHg. There is evidence of moderate to severe pulmonary hypertension. Pulmonic Valve: The pulmonic valve appears grossly normal in structure and function. There is no pulmonic stenosis. There is no evidence of pulmonic regurgitation. Pericardium: There is no pericardial effusion. There is a moderate left pleural effusion. Aorta: The aortic root is normal in diameter. Venous: The inferior vena cava is dilated. There is no change in the dimension of the inferior vena cava with respiration consistent with markedly increased right atrial pressure. HR BP 107/67 Measurements Chambers 2D Name Value Normal Range IVSd (2D) 0.73 cm none LVPWd (2D) 0.98 cm none IVS:LVPW ratio (2D) 0.74 ratio none LVIDd (2D) 5.38 cm none LVIDs (2D) 3.34 cm none LVIDd (2D) index 3.29 cm/m2 none LVIDs (2D) index 2.04 cm/m2 none Ao root diameter (2D) 3.2 cm none LA dimension (AP) 2D 3.3 cm none LA:Ao ratio (2D) 1.03 ratio none Aortic root diameter (2D) inde1.96 cm/m2 none LA dimension (2D) index 2.02 cm/m2 none Volumes/Mass Name Value Normal Range LA Area 2 CH 19.7 cm2 none LA Area 4 CH 17.6 cm2 none LA ESV SP 4CH (MOD) 45.4 ml none LA ESV SP 2CH (MOD) 54.9 ml none LA ESV BP (MOD) 51.3 ml none LA ESV BP (MOD) index 31.35 ml/m2 none LV EDV SP 4CH (MOD) 75.4 ml none LV ESV SP 4CH (MOD) 26.3 ml none LV EDV SP 2CH (MOD) 101 ml none LV ESV SP 2CH (MOD) 30.8 ml none LV EDV BP 90.8 ml none LV ESV BP 28.5 ml none LV EDV BP index 55.49 ml/m2 none LV ESV BP index 17.42 ml/m2 none LV mass (2D) 167.19 g none LV mass (2D) index 102.17 g/m2 none Diastolic/Systolic Function Name Value Normal Range MV E-wave Vmax 0.62 m/sec none MV deceleration time 299 msec none MV A-wave Vmax 0.8 m/sec none MV E:A ratio 0.78 ratio (1.1 - 1.5) LV E:e' septal ratio 7.1 ratio none LV E:e' lateral ratio 5 ratio none TAPSE 2.46 cm none Aortic Valve Name Value Normal Range AV Vmax 1.28 m/sec (1 - 1.7) AV VTI 22.1 cm none AV peak gradient 6.55 mmHg (Less Than 36) AV mean gradient 4 mmHg (Less Than 20) LVOT diameter 2 cm (1.7 - 2.5) LVOT Vmax 1.16 m/sec (0.7 - 1.1) LVOT VTI 20.9 cm none LVOT peak gradient 5 mmHg none LVOT mean gradient 3 mmHg none DOI (VTI) 0.95 ratio none DOI (Vmax) 0.91 ratio none SV LVOT 65.63 ml none FELIPE (continuity Vmax) 2.85 cm2 none FELIPE (continuity Vmax) index 1.74 cm2/m2 none FELIPE (continuity VTI) 2.97 cm2 none FELIPE (continuity VTI) index 1.81 cm2/m2 none Ascending Ao 3 cm none Mitral Valve Name Value Normal Range MV Vmax 0.84 m/sec (0.6 - 1.3) MV VTI 19.6 cm none MV peak gradient 2.85 mmHg none MV mean gradient 1 mmHg none MR Vmax 3.57 m/sec none MVA (continuity VTI) 3.35 cm2 none Tricuspid Valve Name Value Normal Range TR Vmax 3.3 m/sec none TR peak gradient 54.17 mmHg none IVC diameter 2.19 cm none Pulmonic Valve/Qp:Qs Name Value Normal Range PV Vmax 1.34 m/sec (0.6 - 0.9) PV VTI 21.5 cm none PV peak gradient 7.18 mmHg none PV mean gradient 4 mmHg none PVR (patrick) 2.6 patrick none RVOT Vmax 0.72 m/sec none RVOT VTI 15.1 cm none RVOT peak gradient 2 mmHg none Electronically Signed at 10/18/2019 14:33:09 by: ORVILLE ANTHONY M.D. Coming from ultrasound Normal [facility] Interface, [facility] - 10/18/2019 2:39 PM EDT Transthoracic Echocardiogram Patient: ROMERO Ramesh [facility] Rec#: [id number] (Age): 1955(64y) Height: 165.1(cm)/64(in Study Date: 10/18/2019 Weight: 58.06(kg)/128(l Room#: 9005 BSA: [id number] Type: Inpatient Loc: [facility] Sex: F Reading: ORVILLE ANTHONY M.D. Referring: TANYA Renal Dialysis Technician: Reba Fernandez PRIMITVIO History: Asthma. COPD. Tobacco abuse. Diagnosis: ICD-10-PCS Dyspnea, unspecified (R06.00) CPT Code(s): ECHO COMPLETE W/ DOPPLER (81363) Study Quality The study quality is good. Summary: Patient identity verified and ID band on (pause and confirm). Current HP present on patient chart. Procedure explained and patient verified understanding. Consent obtained for procedure. Conclusions: There is normal left ventricular systolic function. There is septal flattening of the interventricular septum consistent with right ventricular volume or pressure overload. The estimated ejection fraction is 60-65%. The diastolic filling pattern is consistent with impaired relaxation and normal LA pressure (Mild diastolic dysfunction). The right ventricle is moderately dilated with mildly reduced systolic function. There is evidence of moderate to severe pulmonary hypertension, RVSP=55-60 mmHg. There is a moderate left pleural effusion and ascites. CTPA performed 10.17.2019 negative for pulmonary embolus. No prior study available for comparison. Findings Reason For Study: Dyspnea. Left Ventricle: The left ventricular chamber size and thickness is normal. There is normal left ventricular systolic function. The estimated ejection fraction is 60-65%. There is septal flattening of the interventricular septum consistent with right ventricular volume or pressure overload. The diastolic filling pattern is consistent with impaired relaxation and normal LA pressure (Mild diastolic dysfunction). Left Atrium: The left atrial chamber size is normal. There is no patent foramen ovale visualized. Right Ventricle: The right ventricle is moderately dilated. The right ventricular global systolic function is mildly reduced. Right Atrium: The right atrial cavity size is dilated. Aortic Valve: The aortic valve is trileaflet. The aortic valve leaflets are mildly thickened. There is no hemodynamically significant stenosis. There is no evidence of aortic regurgitation. Mitral Valve: The mitral valve leaflets appear normal. There is no evidence of mitral valve prolapse. There is no evidence of mitral stenosis. There is a trace of mitral regurgitation. Tricuspid Valve: The tricuspid valve leaflets are normal. There is no tricuspid stenosis. There is a trace tricuspid regurgitation. The right ventricular systolic pressure is estimated to be 55-60 mmHg. There is evidence of moderate to severe pulmonary hypertension. Pulmonic Valve: The pulmonic valve appears grossly normal in structure and function. There is no pulmonic stenosis. There is no evidence of pulmonic regurgitation. Pericardium: There is no pericardial effusion. There is a moderate left pleural effusion. Aorta: The aortic root is normal in diameter. Venous: The inferior vena cava is dilated. There is no change in the dimension of the inferior vena cava with respiration consistent with markedly increased right atrial pressure. HR BP 107/67 Measurements Chambers 2D Name Value Normal Range IVSd (2D) 0.73 cm none LVPWd (2D) 0.98 cm none IVS:LVPW ratio (2D) 0.74 ratio none LVIDd (2D) 5.38 cm none LVIDs (2D) 3.34 cm none LVIDd (2D) index 3.29 cm/m2 none LVIDs (2D) index 2.04 cm/m2 none Ao root diameter (2D) 3.2 cm none LA dimension (AP) 2D 3.3 cm none LA:Ao ratio (2D) 1.03 ratio none Aortic root diameter (2D) inde1.96 cm/m2 none LA dimension (2D) index 2.02 cm/m2 none Volumes/Mass Name Value Normal Range LA Area 2 CH 19.7 cm2 none LA Area 4 CH 17.6 cm2 none LA ESV SP 4CH (MOD) 45.4 ml none LA ESV SP 2CH (MOD) 54.9 ml none LA ESV BP (MOD) 51.3 ml none LA ESV BP (MOD) index 31.35 ml/m2 none LV EDV SP 4CH (MOD) 75.4 ml none LV ESV SP 4CH (MOD) 26.3 ml none LV EDV SP 2CH (MOD) 101 ml none LV ESV SP 2CH (MOD) 30.8 ml none LV EDV BP 90.8 ml none LV ESV BP 28.5 ml none LV EDV BP index 55.49 ml/m2 none LV ESV BP index 17.42 ml/m2 none LV mass (2D) 167.19 g none LV mass (2D) index 102.17 g/m2 none Diastolic/Systolic Function Name Value Normal Range MV E-wave Vmax 0.62 m/sec none MV deceleration time 299 msec none MV A-wave Vmax 0.8 m/sec none MV E:A ratio 0.78 ratio (1.1 - 1.5) LV E:e' septal ratio 7.1 ratio none LV E:e' lateral ratio 5 ratio none TAPSE 2.46 cm none Aortic Valve Name Value Normal Range AV Vmax 1.28 m/sec (1 - 1.7) AV VTI 22.1 cm none AV peak gradient 6.55 mmHg (Less Than 36) AV mean gradient 4 mmHg (Less Than 20) LVOT diameter 2 cm (1.7 - 2.5) LVOT Vmax 1.16 m/sec (0.7 - 1.1) LVOT VTI 20.9 cm none LVOT peak gradient 5 mmHg none LVOT mean gradient 3 mmHg none DOI (VTI) 0.95 ratio none DOI (Vmax) 0.91 ratio none SV LVOT 65.63 ml none FELIPE (continuity Vmax) 2.85 cm2 none FELIPE (continuity Vmax) index 1.74 cm2/m2 none FELIPE (continuity VTI) 2.97 cm2 none FELIPE (continuity VTI) index 1.81 cm2/m2 none Ascending Ao 3 cm none Mitral Valve Name Value Normal Range MV Vmax 0.84 m/sec (0.6 - 1.3) MV VTI 19.6 cm none MV peak gradient 2.85 mmHg none MV mean gradient 1 mmHg none MR Vmax 3.57 m/sec none MVA (continuity VTI) 3.35 cm2 none Tricuspid Valve Name Value Normal Range TR Vmax 3.3 m/sec none TR peak gradient 54.17 mmHg none IVC diameter 2.19 cm none Pulmonic Valve/Qp:Qs Name Value Normal Range PV Vmax 1.34 m/sec (0.6 - 0.9) PV VTI 21.5 cm none PV peak gradient 7.18 mmHg none PV mean gradient 4 mmHg none PVR (patrick) 2.6 patrick none RVOT Vmax 0.72 m/sec none RVOT VTI 15.1 cm none RVOT peak gradient 2 mmHg none Electronically Signed at 10/18/2019 14:33:09 by: ORVILLE ANTHONY M.D. [facility] Transthoracic Echocardiogram Patient: ROMERO Ramesh [facility] Rec#: [id number] (Age): 1955(64y) Height: 165.1(cm)/64(in Study Date: 10/18/2019 Weight: 58.06(kg)/128(l Room#: 9005 BSA: [id number] Type: Inpatient Loc: [facility] Sex: F Reading: ORVILLE ANTHONY M.D. Referring: TANYA Renal Dialysis Technician: Reba Fernandez PRIMITIVO History: Asthma. COPD. Tobacco abuse. Diagnosis: ICD-10-PCS Dyspnea, unspecified (R06.00) CPT Code(s): ECHO COMPLETE W/ DOPPLER (51329) Study Quality The study quality is good. Summary: Patient identity verified and ID band on (pause and confirm). Current HP present on patient chart. Procedure explained and patient verified understanding. Consent obtained for procedure. Conclusions: There is normal left ventricular systolic function. There is septal flattening of the interventricular septum consistent with right ventricular volume or pressure overload. The estimated ejection fraction is 60-65%. The diastolic filling pattern is consistent with impaired relaxation and normal LA pressure (Mild diastolic dysfunction). The right ventricle is moderately dilated with mildly reduced systolic function. There is evidence of moderate to severe pulmonary hypertension, RVSP=55-60 mmHg. There is a moderate left pleural effusion and ascites. CTPA performed 10.17.2019 negative for pulmonary embolus. No prior study available for comparison. Findings Reason For Study: Dyspnea. Left Ventricle: The left ventricular chamber size and thickness is normal. There is normal left ventricular systolic function. The estimated ejection fraction is 60-65%. There is septal flattening of the interventricular septum consistent with right ventricular volume or pressure overload. The diastolic filling pattern is consistent with impaired relaxation and normal LA pressure (Mild diastolic dysfunction). Left Atrium: The left atrial chamber size is normal. There is no patent foramen ovale visualized. Right Ventricle: The right ventricle is moderately dilated. The right ventricular global systolic function is mildly reduced. Right Atrium: The right atrial cavity size is dilated. Aortic Valve: The aortic valve is trileaflet. The aortic valve leaflets are mildly thickened. There is no hemodynamically significant stenosis. There is no evidence of aortic regurgitation. Mitral Valve: The mitral valve leaflets appear normal. There is no evidence of mitral valve prolapse. There is no evidence of mitral stenosis. There is a trace of mitral regurgitation. Tricuspid Valve: The tricuspid valve leaflets are normal. There is no tricuspid stenosis. There is a trace tricuspid regurgitation. The right ventricular systolic pressure is estimated to be 55-60 mmHg. There is evidence of moderate to severe pulmonary hypertension. Pulmonic Valve: The pulmonic valve appears grossly normal in structure and function. There is no pulmonic stenosis. There is no evidence of pulmonic regurgitation. Pericardium: There is no pericardial effusion. There is a moderate left pleural effusion. Aorta: The aortic root is normal in diameter. Venous: The inferior vena cava is dilated. There is no change in the dimension of the inferior vena cava with respiration consistent with markedly increased right atrial pressure. HR BP 107/67 Measurements Chambers 2D Name Value Normal Range IVSd (2D) 0.73 cm none LVPWd (2D) 0.98 cm none IVS:LVPW ratio (2D) 0.74 ratio none LVIDd (2D) 5.38 cm none LVIDs (2D) 3.34 cm none LVIDd (2D) index 3.29 cm/m2 none LVIDs (2D) index 2.04 cm/m2 none Ao root diameter (2D) 3.2 cm none LA dimension (AP) 2D 3.3 cm none LA:Ao ratio (2D) 1.03 ratio none Aortic root diameter (2D) inde1.96 cm/m2 none LA dimension (2D) index 2.02 cm/m2 none Volumes/Mass Name Value Normal Range LA Area 2 CH 19.7 cm2 none LA Area 4 CH 17.6 cm2 none LA ESV SP 4CH (MOD) 45.4 ml none LA ESV SP 2CH (MOD) 54.9 ml none LA ESV BP (MOD) 51.3 ml none LA ESV BP (MOD) index 31.35 ml/m2 none LV EDV SP 4CH (MOD) 75.4 ml none LV ESV SP 4CH (MOD) 26.3 ml none LV EDV SP 2CH (MOD) 101 ml none LV ESV SP 2CH (MOD) 30.8 ml none LV EDV BP 90.8 ml none LV ESV BP 28.5 ml none LV EDV BP index 55.49 ml/m2 none LV ESV BP index 17.42 ml/m2 none LV mass (2D) 167.19 g none LV mass (2D) index 102.17 g/m2 none Diastolic/Systolic Function Name Value Normal Range MV E-wave Vmax 0.62 m/sec none MV deceleration time 299 msec none MV A-wave Vmax 0.8 m/sec none MV E:A ratio 0.78 ratio (1.1 - 1.5) LV E:e' septal ratio 7.1 ratio none LV E:e' lateral ratio 5 ratio none TAPSE 2.46 cm none Aortic Valve Name Value Normal Range AV Vmax 1.28 m/sec (1 - 1.7) AV VTI 22.1 cm none AV peak gradient 6.55 mmHg (Less Than 36) AV mean gradient 4 mmHg (Less Than 20) LVOT diameter 2 cm (1.7 - 2.5) LVOT Vmax 1.16 m/sec (0.7 - 1.1) LVOT VTI 20.9 cm none LVOT peak gradient 5 mmHg none LVOT mean gradient 3 mmHg none DOI (VTI) 0.95 ratio none DOI (Vmax) 0.91 ratio none SV LVOT 65.63 ml none FELIPE (continuity Vmax) 2.85 cm2 none FELIPE (continuity Vmax) index 1.74 cm2/m2 none FELIPE (continuity VTI) 2.97 cm2 none FELIPE (continuity VTI) index 1.81 cm2/m2 none Ascending Ao 3 cm none Mitral Valve Name Value Normal Range MV Vmax 0.84 m/sec (0.6 - 1.3) MV VTI 19.6 cm none MV peak gradient 2.85 mmHg none MV mean gradient 1 mmHg none MR Vmax 3.57 m/sec none MVA (continuity VTI) 3.35 cm2 none Tricuspid Valve Name Value Normal Range TR Vmax 3.3 m/sec none TR peak gradient 54.17 mmHg none IVC diameter 2.19 cm none Pulmonic Valve/Qp:Qs Name Value Normal Range PV Vmax 1.34 m/sec (0.6 - 0.9) PV VTI 21.5 cm none PV peak gradient 7.18 mmHg none PV mean gradient 4 mmHg none PVR (patrick) 2.6 patrick none RVOT Vmax 0.72 m/sec none RVOT VTI 15.1 cm none RVOT peak gradient 2 mmHg none Electronically Signed at 10/18/2019 14:33:09 by: ORVILLE ANTHONY M.D. [facility] Ferritinon 10-18-2019 Ferritin [Mass/Vol] 689 ng/mL High 13 - 150 ng/mL [facility] HEPATITIS A ANTIBODY,TOTALon 10-18-2019 HAV Ab Ql (S) Negative Negative [facility] HEPATITIS B CORE ANTIBODY, I GMon 10-18-2019 HBV core IgM Ql (S) Negative Negative [facility] HEPATITIS B SURFACE ANTIBODY on 10-18-2019 HBV surface Ab Ql (S) Negative Negative [facility] HEPATITIS B SURFACE ANTIGENo n 10-18-2019 HBV surface Ag Ql (S) Negative Negative [facility] HEPATITIS C ANTIBODYon 10-17 HCV Ab Ql (S) Negative Negative [facility] Iron and TIBCon 10-18-2019 Interpretation and review of laboratory results Abnormal [facility] Iron [Mass/Vol] 121 ug/dL [facility] h Iron binding capacity [Mass/Vol] <138 Low [facility] Iron saturation [Mass fraction] [facility] Comment on above: Unable to calculate; a result component is outside measurable limits. Magnesium Levelon 10-18-2019 Magnesium [Mass/Vol] 1.5 mg/dL Low 1.6 - 2 .4 mg/dL [facility] Otheron 10-18-2019 Interpretation and review of laboratory results Abnormal [facility] Interpretation and review of laboratory results Normal [facility] Test performed using Leilani BHARAT immunoassay system [facility] POC Glucoseon 10-18-2019 Glucose [Mass/Vol] 260 mg/dL High 65 - 99 mg/dL [facility] Interpretation and review of laboratory results Abnormal [facility] Glucose [Mass/Vol] 209 mg/dL High 65 - 99 mg/dL [facility] Interpretation and review of laboratory results Abnormal [facility] PT/INRon 10-18-2019 INR Coag (PPP) [Relative time] 1.9 {INR} High [facility] Interpretation and review of laboratory results Abnormal [facility] PT Coag (PPP) [Time] 21.2 s [facility] During the induction phase of oral anticoagulation, the INR may not reflect the anticoagulation status of the patient. Therapeutic ranges for INR's are: Most clinical situations: INR 2.0-3.0 Mechanical Prosthetic Valve: INR 2.5-3.5 Critical: INR >5.0 [facility] US ABDOMEN LIMITED STUDYon 0 10-18-2019 [facility] 10/18/2019 5:41 PM EDT EXAMINATION: US ABDOMEN LIMITED STUDY HISTORY: ORDERING SYSTEM PROVIDED HISTORY: cirrhosis noted on CT PA, TECHNOLOGIST PROVIDED HISTORY: Illness/Other Reason for exam: CIRRHOSIS SEEN ON CT Cancer History: Surgery, RadiationHistory: Encounter Type: Initial Additional signs and symptoms: ORDERING SYSTEM PROVIDED DIAGNOSIS CODES: COMPARISON: CT scan chest 10/17/2019. FINDINGS: Barnes scale and color sonography of the right upper quadrant was performed. The liver is cirrhotic with coarsened hepatic echotexture mildly increased hepatic echogenicity. Within the left hepatic lobe there is a circumscribed hypoechoic lesion measuring 1.0 x 0.8 x 0.8 cm. A septated cyst is also seen within the left hepatic lobe measuring 1.2 x 1.1 x 1.0 cm. Gallbladder wall thickening with mobile, shadowing gallstones is shown. The imaged pancreas, right kidney are within normal limits intrahepatic and common biliary duct dilatation is present. The distal common bile duct measures 0.6 cm. The IVC is distended. There is possible portal vein within the main portal vein. Prominent upper abdominal ascites is present. The right kidney measures 12.5 cm in sagittal dimension. IMPRESSION: 1. Cirrhotic liver with suspicious hypoechoic lesion within the left hepatic lobe measuring 1.0 x 0.8 x 0.8 cm. Further evaluation with pre and postcontrast MRI is recommended. 2. Suspected main portal vein thrombus within the liver can also be evaluated on MRI. 3. Cholelithiasis with gallbladder wall thickening likely secondary to third spacing. Sonographic Squires sign is absent. 4. Upper abdominal ascites. 5. Intrahepatic and common biliary duct dilatation. No proximal obstructing stones are identified within the bile duct however, the bile duct can also be evaluated on MRI/MRCP. [employer] Workstation ID: [id number] [facility] EXAMINATION: US ABDO MEN LIMITED STUDY HISTORY: ORDERING SYSTEM PROVIDED HISTORY: cirrhosis noted on CT PA, TECHNOLOGIST PROVIDED HISTORY: Illness/Other Reason for exam: CIRRHOSIS SEEN ON CT Cancer History: Surgery, RadiationHistory: Encounter Type: Initial Additional signs and symptoms: ORDERING SYSTEM PROVIDED DIAGNOSIS CODES: COMPARISON: CT scan chest 10/17/2019. FINDINGS: Barnes scale and color sonography of the right upper quadrant was performed. The liver is cirrhotic with coarsened hepatic echotexture mildly increased hepatic echogenicity. Within the left hepatic lobe there is a circumscribed hypoechoic lesion measuring 1.0 x 0.8 x 0.8 cm. A septated cyst is also seen within the left hepatic lobe measuring 1.2 x 1.1 x 1.0 cm. Gallbladder wall thickening with mobile, shadowing gallstones is shown. The imaged pancreas, right kidney are within normal limits intrahepatic and common biliary duct dilatation is present. The distal common bile duct measures 0.6 cm. The IVC is distended. There is possible portal vein within the main portal vein. Prominent upper abdominal ascites is present. The right kidney measures 12.5 cm in sagittal dimension. [facility] 1. Cirrhotic liver w ith suspicious hypoechoic lesion within the left hepatic lobe measuring 1.0 x 0.8 x 0.8 cm. Further evaluation with pre and postcontrast MRI is recommended. 2. Suspected main portal vein thrombus within the liver can also be evaluated on MRI. 3. Cholelithiasis with gallbladder wall thickening likely secondary to third spacing. Sonographic Squires sign is absent. 4. Upper abdominal ascites. 5. Intrahepatic and common biliary duct dilatation. No proximal obstructing stones are identified within the bile duct however, the bile duct can also be evaluated on MRI/MRCP. [employer] Workstation ID: [id number] [facility] US ABDOMEN LIMITED STUDY EXAMINATION: US ABDOMEN LIMITED STUDY HISTORY: ORDERING SYSTEM PROVIDED HISTORY: cirrhosis noted on CT PA, TECHNOLOGIST PROVIDED HISTORY: Illness/Other Reason for exam: CIRRHOSIS SEEN ON CT Cancer History: Surgery, RadiationHistory: Encounter Type: Initial Additional signs and symptoms: ORDERING SYSTEM PROVIDED DIAGNOSIS CODES: COMPARISON: CT scan chest 10/17/2019. FINDINGS: Barnes scale and color sonography of the right upper quadrant was performed. The liver is cirrhotic with coarsened hepatic echotexture mildly increased hepatic echogenicity. Within the left hepatic lobe there is a circumscribed hypoechoic lesion measuring 1.0 x 0.8 x 0.8 cm. A septated cyst is also seen within the left hepatic lobe measuring 1.2 x 1.1 x 1.0 cm. Gallbladder wall thickening with mobile, shadowing gallstones is shown. The imaged pancreas, right kidney are within normal limits intrahepatic and common biliary duct dilatation is present. The distal common bile duct measures 0.6 cm. The IVC is distended. There is possible portal vein within the main portal vein. Prominent upper abdominal ascites is present. The right kidney measures 12.5 cm in sagittal dimension. IMPRESSION: 1. Cirrhotic liver with suspicious hypoechoic lesion within the left hepatic lobe measuring 1.0 x 0.8 x 0.8 cm. Further evaluation with pre and postcontrast MRI is recommended. 2. Suspected main portal vein thrombus within the liver can also be evaluated on MRI. 3. Cholelithiasis with gallbladder wall thickening likely secondary to third spacing. Sonographic Squires sign is absent. 4. Upper abdominal ascites. 5. Intrahepatic and common biliary duct dilatation. No proximal obstructing stones are identified within the bile duct however, the bile duct can also be evaluated on MRI/MRCP. [employer] Workstation ID: [id number] Dictated by: DIDI BARNES on MonOct 18, 2019 4:11:32 PM EDT Transcribed by: JUSTO BURTON on MonOct 18, 2019 4:49:56 PM EDT Finalized by: DIDI BARNES on MonOct 18, 2019 5:38:57 PM EDT Normal [facility] Comment on above: Order Comment: Injur y/Trauma or Illness?:Illness/Other How long have you had these symptoms (acute/chronic)?:Unknown Reason for exam?:CIRRHOSIS SEEN ON CT History of cancer?: Surgeries, chemotherapy, or radiation?: Type of Exam?:Initial Additional signs and symptoms?: US DUPLEX VENOUS LEGS BILATE RALon 10-18-2019 US DUPLEX VENOUS LEGS BILATERAL Non-Invasive Vascular Patient: ROMERO Ramesh [facility] Rec#: [id number] (Age): 1955(64y) Study Date: 10/18/2019 Room#: Type: Inpatient Sex: F Reading: Lola Fajardo MD, RPVI Referring: Gladis Kwan [employer] Decorator: Thuy Black BS, RDMS, RVT Procedure Info: [id number] Study Quality: Diagnosis: R60.9 Edema, unspecified Lower Venous Duplex Conclusions No evidence of deep or superficial vein thrombosis in either lower extremity. Finding Grids Right Duplex Exam Spont Phasic External Iliac Y Y Common Femoral Y Y Proximal Profunda _ _ Proximal Femoral Y Y Mid Femoral Y Y Distal Femoral Y Y Popliteal Y Y Posterior Tibial _ _ Peroneal _ _ Great Saphenous _ _ Augment Color Filling Compressibility External Iliac Y Y Y Common Femoral Y Y Y Proximal Profunda _ Y _ Proximal Femoral Y Y Y Mid Femoral Y Y Y Distal Femoral Y Y Y Popliteal Y Y Y Posterior Tibial _ Y Y Peroneal _ Y Y Great Saphenous _ _ Y Tran --------- Y = Yes Left Duplex Exam Spont Phasic External Iliac Y Y Common Femoral Y Y Proximal Profunda _ _ Proximal Femoral Y Y Mid Femoral Y Y Distal Femoral Y Y Popliteal Y Y Posterior Tibial _ _ Peroneal _ _ Great Saphenous _ _ Augment Color Filling Compressibility External Iliac Y Y Y Common Femoral Y Y Y Proximal Profunda _ Y _ Proximal Femoral Y Y Y Mid Femoral Y Y Y Distal Femoral Y Y Y Popliteal Y Y Y Posterior Tibial _ Y Y Peroneal _ Y Y Great Saphenous _ _ Y Tran --------- Y = Yes Electronically signed at 10/18/2019 16:06:41 by: Lola Fajardo MD, VI [facility] Ultrasound duplex venous leg s bilaton 10-18-2019 Interface, Rad In [facility] - 10/18/2019 4:07 PM EDT Non-Invasive Vascular Patient: ROMERO Ramesh [facility] Rec#: [id number] (Age): 1955(64y) Study Date: 10/18/2019 Room#: Type: Inpatient Sex: F Reading: Lola Fajardo MD, RPVI Referring: Gladis Kwan [employer] Decorator: Thuy Black BS, RDMS, RVT Procedure Info: [id number] Study Quality: Diagnosis: R60.9 Edema, unspecified Lower Venous Duplex Conclusions No evidence of deep or superficial vein thrombosis in either lower extremity. Finding Grids Right Duplex Exam Spont Phasic External Iliac Y Y Common Femoral Y Y Proximal Profunda _ _ Proximal Femoral Y Y Mid Femoral Y Y Distal Femoral Y Y Popliteal Y Y Posterior Tibial _ _ Peroneal _ _ Great Saphenous _ _ Augment Color Filling Compressibility External Iliac Y Y Y Common Femoral Y Y Y Proximal Profunda _ Y _ Proximal Femoral Y Y Y Mid Femoral Y Y Y Distal Femoral Y Y Y Popliteal Y Y Y Posterior Tibial _ Y Y Peroneal _ Y Y Great Saphenous _ _ Y Tran --------- Y = Yes Left Duplex Exam Spont Phasic External Iliac Y Y Common Femoral Y Y Proximal Profunda _ _ Proximal Femoral Y Y Mid Femoral Y Y Distal Femoral Y Y Popliteal Y Y Posterior Tibial _ _ Peroneal _ _ Great Saphenous _ _ Augment Color Filling Compressibility External Iliac Y Y Y Common Femoral Y Y Y Proximal Profunda _ Y _ Proximal Femoral Y Y Y Mid Femoral Y Y Y Distal Femoral Y Y Y Popliteal Y Y Y Posterior Tibial _ Y Y Peroneal _ Y Y Great Saphenous _ _ Y Tran --------- Y = Yes Electronically signed at 10/18/2019 16:06:41 by: Lola Fajardo MD, RPVI [facility] Non-Invasive Vascula r Patient: ROMERO Ramesh [facility] Rec#: [id number] (Age): 1955(64y) Study Date: 10/18/2019 Room#: Type: Inpatient Sex: F Reading: Loal Fajardo MD, KARLI Referring: Gladis Kwan [employer] Decorator: Thuy Black BS, RDMS, RVT Procedure Info: [id number] Study Quality: Diagnosis: R60.9 Edema, unspecified Lower Venous Duplex Conclusions No evidence of deep or superficial vein thrombosis in either lower extremity. Finding Grids Right Duplex Exam Spont Phasic External Iliac Y Y Common Femoral Y Y Proximal Profunda _ _ Proximal Femoral Y Y Mid Femoral Y Y Distal Femoral Y Y Popliteal Y Y Posterior Tibial _ _ Peroneal _ _ Great Saphenous _ _ Augment Color Filling Compressibility External Iliac Y Y Y Common Femoral Y Y Y Proximal Profunda _ Y _ Proximal Femoral Y Y Y Mid Femoral Y Y Y Distal Femoral Y Y Y Popliteal Y Y Y Posterior Tibial _ Y Y Peroneal _ Y Y Great Saphenous _ _ Y Tran --------- Y = Yes Left Duplex Exam Spont Phasic External Iliac Y Y Common Femoral Y Y Proximal Profunda _ _ Proximal Femoral Y Y Mid Femoral Y Y Distal Femoral Y Y Popliteal Y Y Posterior Tibial _ _ Peroneal _ _ Great Saphenous _ _ Augment Color Filling Compressibility External Iliac Y Y Y Common Femoral Y Y Y Proximal Profunda _ Y _ Proximal Femoral Y Y Y Mid Femoral Y Y Y Distal Femoral Y Y Y Popliteal Y Y Y Posterior Tibial _ Y Y Peroneal _ Y Y Great Saphenous _ _ Y Tran --------- Y = Yes Electronically signed at 10/18/2019 16:06:41 by: Lola Fajardo MD, RPVI [facility] Urine Aerobic Cultureon 10-01 Bacteria identified Aer cx Nom (Unsp spec) Three or more colony types; >10,000 CFU/mL mixture of normal urogenital microbiota. None predominant. Possible contamination. Suggest repeat if clinically indicated. [facility] VR Paracentesison 10-18-2019 EXAMINATION: CV IR PARACENTESIS PROCEDURE(S) PERFORMED: 1. Ultrasound guided paracentesis HISTORY: 64-year-old with decompensated alcoholic cirrhosis. PHYSICIAN: Stefanie Mayer MD MEDICATIONS: Lidocaine, local TECHNIQUE AND FINDINGS: Informed written consent was obtained from the patient and witnessed following a discussion of the benefits and potential risks of the procedure which include but are not limited to bleeding and infection. The patient's concerns were addressed. The patient was brought to the procedure room and placed in a supine position in her hospital cart. A time-out and pause/confirm was performed according to hospital policy. The abdomen was scanned and 2 small pockets of ascites found 1 on the left and 1 on the right. The abdomen was prepped and draped in usual sterile fashion. All elements of maximal sterile barrier techniques were followed and when used sterile ultrasound preparation was utilized. Using ultrasound guidance, an appropriate skin access site on the left upper abdomen was selected and marked. The skin and underlying soft tissues were anesthetized with lidocaine down to the peritoneal surface. An 18 gauge Yueh needle was advanced into the peritoneal space, but fluid could not be obtained. Instead, appropriate skin access site at the right upper abdomen was selected and marked. The skin and underlying soft tissues were anesthetized with lidocaine down to the peritoneal surface. An 18 gauge Yueh needle was advanced into the peritoneal space. Once spontaneous return of peritoneal fluid was obtained, the central hub was removed and the remaining catheter attached to vacuum suction. 350 mL of dark orange cloudy ascites was aspirated using vacuum bottles. The catheter was removed and manual pressure applied until hemostasis was achieved. The patient tolerated the procedure well without evidence of immediate postprocedural complication. ESTIMATED BLOOD LOSS: None. COMPLICATIONS: None. [facility] Interface, Rad In [facility] - 10/18/2019 9:45 PM EDT EXAMINATION: CV IR PARACENTESIS PROCEDURE(S) PERFORMED: 1. Ultrasound guided paracentesis HISTORY: 64-year-old with decompensated alcoholic cirrhosis. PHYSICIAN: Stefanie Mayer MD MEDICATIONS: Lidocaine, local TECHNIQUE AND FINDINGS: Informed written consent was obtained from the patient and witnessed following a discussion of the benefits and potential risks of the procedure which include but are not limited to bleeding and infection. The patient's concerns were addressed. The patient was brought to the procedure room and placed in a supine position in her hospital cart. A time-out and pause/confirm was performed according to hospital policy. The abdomen was scanned and 2 small pockets of ascites found 1 on the left and 1 on the right. The abdomen was prepped and draped in usual sterile fashion. All elements of maximal sterile barrier techniques were followed and when used sterile ultrasound preparation was utilized. Using ultrasound guidance, an appropriate skin access site on the left upper abdomen was selected and marked. The skin and underlying soft tissues were anesthetized with lidocaine down to the peritoneal surface. An 18 gauge Yueh needle was advanced into the peritoneal space, but fluid could not be obtained. Instead, appropriate skin access site at the right upper abdomen was selected and marked. The skin and underlying soft tissues were anesthetized with lidocaine down to the peritoneal surface. An 18 gauge Yueh needle was advanced into the peritoneal space. Once spontaneous return of peritoneal fluid was obtained, the central hub was removed and the remaining catheter attached to vacuum suction. 350 mL of dark orange cloudy ascites was aspirated using vacuum bottles. The catheter was removed and manual pressure applied until hemostasis was achieved. The patient tolerated the procedure well without evidence of immediate postprocedural complication. ESTIMATED BLOOD LOSS: None. COMPLICATIONS: None. IMPRESSION: 1. Small amount of ascites. 2. Technically successful ultrasound-guided paracentesis with aspiration of 350 mL of cloudy dark orange peritoneal fluid. Sample was submitted for further analysis per referring physicians. Workstation ID: [id number] [facility] 1. Small amount of ascites. 2. Technically successful ultrasound-guided paracentesis with aspiration of 350 mL of cloudy dark orange peritoneal fluid. Sample was submitted for further analysis per referring physicians. Workstation ID: [id number] [facility] 10-17-2019 Anion gap [Moles/Vol] 15 mmol/L 10 - 20 mmol/L [facility] Calcium [Mass/Vol] 8.3 mg/dL Low 8.4 - 10. 2 mg/dL [facility] Chloride [Moles/Vol] 97 mmol/L Low 98 - 10 8 mmol/L [facility] Creatinine [Mass/Vol] 0.53 mg/dL Low 0.60 - 1.20 [facility] GFR/1.73 sq M predicted among non-blacks MDRD (S/P/Bld) [Vol rate/Area] The eGFR should be used for monitoring renal function only and not for medication dosing. [facility] GFR/1.73 sq M.predicted CKD-EPI (S/P/Bld) [Vol rate/Area] 99 >=60 mL/min/1.7 3 m2 [facility] Glucose [Mass/Vol] 452 mg/dL Critically high 65 - 9 9 mg/dL [facility] HCO3 [Moles/Vol] 25 mmol/L 21 - 32 mmol/L [facility] Interpretation and review of laboratory results Abnormal [facility] Potassium [Moles/Vol] 3.1 mmol/L Low 3.5 - 5.1 mmol/L [facility] Sodium [Moles/Vol] 134 mmol/L Low 135 - 145 mmol/L [facility] Urea nitrogen [Mass/Vol] 5 mg/dL Low 8 - 25 mg/dL [facility] Urea nitrogen/Creatinine [Mass ratio] 9.4 mg/mg Low [facility] CBC WITH AUTO DIFFERENTIALon 10-17-2019 Basophils (Bld) [#/Vol] 0.01 10*3/uL [facility] Basophils/100 WBC (Bld) 0.5 % [facility] Eosinophils (Bld) [#/Vol] 0.03 10*3/uL [facility] Eosinophils/100 WBC (Bld) 1.5 % [facility] Erythrocyte distribution width (RBC) [Entitic vol] 15.7 % High 11.6 - 14.8 % [facility] Hematocrit (Bld) [Volume fraction] 38.6 % 36 - 46 % [facility] Hemoglobin (Bld) [Mass/Vol] 13.1 g/dL 12 - 16 g/dL [facility] Immature granulocytes (Bld) [#/Vol] 0.01 10*3/uL [facility] Immature granulocytes/100 WBC (Bld) 0.50 % [facility] Comment on above: The IG parameter is the percentage of metamyelocytes, myelocytes and promyelocytes. An immature granulocyte count (IG) of 1% or more suggests the possibility of infection, an IG count of 3% is very likely related to an infection. Interpretation and review of laboratory results Abnormal [facility] Lymphocytes (Bld) [#/Vol] 0.71 10*3/uL Low [facility] Lymphocytes/100 WBC (Bld) 36.0 % [facility] MCH (RBC) [Entitic mass] 35.8 pg High 26 - 34 pg [facility] MCHC (RBC) [Mass/Vol] 33.9 g/dL 31 - 37 g/dL [facility] MCV (RBC) [Entitic vol] 105.5 fL High 80 - 100 fL [facility] Monocytes (Bld) [#/Vol] 0.24 10*3/uL Low [facility] Monocytes/100 WBC (Bld) 12.2 % [facility] Neutrophils (Bld) [#/Vol] 0.97 10*3/uL Low [facility] Neutrophils/100 WBC (Bld) 49.3 % [facility] Nucleated RBC (Bld) [#/Vol] 0.00 10*3/uL [facility] Nucleated RBC/100 WBC (Bld) [Ratio] 0.0 % [facility] Platelet mean volume (Bld) [Entitic vol] 12.6 fL High 9.4 - 12.4 fL [facility] Platelets (Bld) [#/Vol] 30 10*3/uL Critically low [facility] Comment on above: Results called and r ead back verified by:.[id number] to Dr. Salcido @ [facility] 10-17-2019 RBC (Bld) [#/Vol] 3.66 10*6/uL Low [facility] WBC (Bld) [#/Vol] 1.97 10*3/uL Low [facility] COVID-19, Molecularon 2019 Interpretation and review of laboratory results Normal [facility] SARS-CoV-2 Not Detected Not Detected [facility] Comment on above: This test was perfor med under the FDA's Emergency Use Authorization (EUA). Testing was performed using the [employer] ID NOW COVID-19 assay on the ID NOW platform. This test has not been approved for use in asymptomatic patients and its performance in this patient population has not been evaluated. Negative results do not rule out the presence of SARS-CoV-2/COVID-19. Fact sheets for the EUA can be found at the following links: For Healthcare Providers: https://www.fda.gov/media/981861/download For Patients: https://www.fda.gov/media/256876/download CT PULMONARY ARTERIESon 10-01 CT PULMONARY ARTERIES EXAMINATION: CT PULMONARY ARTERIES ADDITIONAL CLINICAL INFORMATION: Shortness of breath, PE suspected, high pretest prob COMPARISON: Prior chest CT 09/23/2008. TECHNIQUE: Enhanced helical acquisition was obtained from lung apices through the adrenal glands during bolus intravenous contrast administration (75 mL Isovue-370). MIP reconstructions of the pulmonary arteries were performed. Dose reduction techniques were achieved by using automated exposure control and/or adjustment of mA and/or kV according to patient size and/or use of iterative reconstruction technique. FINDINGS: There is significant image degradation secondary to patient respiratory motion artifact. However, no evidence of pulmonary arterial embolism to the subsegmental branches. Hlyeptte-ub-flbko sized layering left pleural effusion and small to moderate-sized layering right pleural effusion are present. There is enlargement of the central pulmonary arterial vasculature indicating underlying pulmonary arterial hypertension. Mild centrilobular emphysema is present. Biapical pleural and pulmonary parenchymal scarring are present. Dependent bibasilar atelectasis is present within the lower lobes, left greater than right. Gallstones are present. There is mild nodularity of the visualized liver contour indicating underlying cirrhosis. There is partial inclusion hepatic cysts within the left lobe of the liver. Mild splenic enlargement is present. Moderate volume of ascites is present within the included upper abdomen. IMPRESSION: 1. Significant image degradation secondary to respiratory motion artifact. There is no evidence of pulmonary arterial embolism to the subsegmental branches. 2. Wpegjfom-ev-oelzh left and rcypk-ec-lqgytmou right pleural effusions are present. Associated compressive atelectasis is present involving the bilateral lower lobes. 3. Enlargement central pulmonary arterial vasculature indicating underlying pulmonary arterial hypertension. 4. Mild emphysema. 5. Cirrhotic morphology of the liver. Splenomegaly is noted. Partial inclusion of hepatic cysts. Cholelithiasis. 6. Moderate volume of ascites. [employer] Workstation ID: [id number] Dictated by: DIAMOND THORNTON on MonOct 17, 2019 5:59:00 PM EDT Transcribed by: DOROTEO ESPINOZA on MonOct 17, 2019 6:02:18 PM EDT Finalized by: DIAMOND THORNTON on MonOct 17, 2019 6:08:48 PM EDT [facility] Comment on above: Order Comment: Injur y/Trauma or Illness?:Illness/Other How long have you had these symptoms (acute/chronic)?:Acute Reason for exam?:sob Type of Exam?:Initial Additional signs and symptoms?:. 1. Significant image degradation secondary to respiratory motion artifact. There is no evidence of pulmonary arterial embolism to the subsegmental branches. 2. Cgyakihc-gb-vuxfh left and uqkmd-vk-vuqhfrbf right pleural effusions are present. Associated compressive atelectasis is present involving the bilateral lower lobes. 3. Enlargement central pulmonary arterial vasculature indicating underlying pulmonary arterial hypertension. 4. Mild emphysema. 5. Cirrhotic morphology of the liver. Splenomegaly is noted. Partial inclusion of hepatic cysts. Cholelithiasis. 6. Moderate volume of ascites. [employer] Workstation ID: [id number] [facility], [facility] In ji Speech - 10/17/2019 6:11 PM EDT EXAMINATION: CT PULMONARY ARTERIES ADDITIONAL CLINICAL INFORMATION: Shortness of breath, PE suspected, high pretest prob COMPARISON: Prior chest CT 09/23/2008. TECHNIQUE: Enhanced helical acquisition was obtained from lung apices through the adrenal glands during bolus intravenous contrast administration (75 mL Isovue-370). MIP reconstructions of the pulmonary arteries were performed. Dose reduction techniques were achieved by using automated exposure control and/or adjustment of mA and/or kV according to patient size and/or use of iterative reconstruction technique. FINDINGS: There is significant image degradation secondary to patient respiratory motion artifact. However, no evidence of pulmonary arterial embolism to the subsegmental branches. Rvcduavn-fr-bwdyq sized layering left pleural effusion and small to moderate-sized layering right pleural effusion are present. There is enlargement of the central pulmonary arterial vasculature indicating underlying pulmonary arterial hypertension. Mild centrilobular emphysema is present. Biapical pleural and pulmonary parenchymal scarring are present. Dependent bibasilar atelectasis is present within the lower lobes, left greater than right. Gallstones are present. There is mild nodularity of the visualized liver contour indicating underlying cirrhosis. There is partial inclusion hepatic cysts within the left lobe of the liver. Mild splenic enlargement is present. Moderate volume of ascites is present within the included upper abdomen. IMPRESSION: 1. Significant image degradation secondary to respiratory motion artifact. There is no evidence of pulmonary arterial embolism to the subsegmental branches. 2. Ldfllcbu-gg-cqxoe left and bdsld-bd-igkjjkxc right pleural effusions are present. Associated compressive atelectasis is present involving the bilateral lower lobes. 3. Enlargement central pulmonary arterial vasculature indicating underlying pulmonary arterial hypertension. 4. Mild emphysema. 5. Cirrhotic morphology of the liver. Splenomegaly is noted. Partial inclusion of hepatic cysts. Cholelithiasis. 6. Moderate volume of ascites. [facility]AMA[facility] Workstation ID: [id number] [facility] EXAMINATION: CT PULM ONARY ARTERIES ADDITIONAL CLINICAL INFORMATION: Shortness of breath, PE suspected, high pretest prob COMPARISON: Prior chest CT 09/23/2008. TECHNIQUE: Enhanced helical acquisition was obtained from lung apices through the adrenal glands during bolus intravenous contrast administration (75 mL Isovue-370). MIP reconstructions of the pulmonary arteries were performed. Dose reduction techniques were achieved by using automated exposure control and/or adjustment of mA and/or kV according to patient size and/or use of iterative reconstruction technique. FINDINGS: There is significant image degradation secondary to patient respiratory motion artifact. However, no evidence of pulmonary arterial embolism to the subsegmental branches. Rpuuxppz-fk-mrwrc sized layering left pleural effusion and small to moderate-sized layering right pleural effusion are present. There is enlargement of the central pulmonary arterial vasculature indicating underlying pulmonary arterial hypertension. Mild centrilobular emphysema is present. Biapical pleural and pulmonary parenchymal scarring are present. Dependent bibasilar atelectasis is present within the lower lobes, left greater than right. Gallstones are present. There is mild nodularity of the visualized liver contour indicating underlying cirrhosis. There is partial inclusion hepatic cysts within the left lobe of the liver. Mild splenic enlargement is present. Moderate volume of ascites is present within the included upper abdomen. [facility] Gold Topon 10-17-2019 Extra Tube Hold for add-ons. [facility] Comment on above: Auto resulted. Hemoglobin A1con 10-17-2019 Average glucose Estimated from glycated hemoglobin mass conc (Bld) 229 mg/dL High 68 - 114 mg/dL [facility] HbA1c (Bld) [Mass fraction] 9.6 % High 4 - 5.6 % [facility] Interpretation and review of laboratory results Abnormal [facility] Normal: 4.0% - 5.6% Increased risk for diabetes: 5.7% - 6.4% Diabetes: >= 6.5% Pediatrics: No established reference range Estimated average glucose: 68-114 mg/dL [facility] Hepatic Function Panel (LFT) on 10-17-2019 Albumin [Mass/Vol] 2.4 g/dL Low 3.2 - 5.2 g/dL [facility] ALP [Catalytic activity/Vol] 241 U/L High 40 - 150 U/L [facility] ALT [Catalytic activity/Vol] 30 U/L 14 - 65 U/L [facility] AST [Catalytic activity/Vol] 50 U/L High 0 - 45 U/L [facility] Bilirubin [Mass/Vol] 5.6 mg/dL High 0 - 1.3 mg/dL [facility] Bilirubin.conjugated [Mass/Vol] 2.7 mg/dL High 0 - 0.4 mg/dL [facility] Interpretation and review of laboratory results Abnormal [facility] Protein [Mass/Vol] 5.4 g/dL Low 6 - 8 g/dL [facility] alth NT Pro BNPon 10-17-2019 Interpretation and review of laboratory results Normal [facility] Natriuretic peptide.B prohormone N-Terminal [Mass/Vol] 204 pg/mL 0 - 300 pg/mL [facility] Pride Study Cut-offs Rule In: < /= 50 Years >450 pg/mL 51 Years - 75 Years >900 pg/mL 76 Years - 99 Years >1800 pg/mL Rule Out: All patients <300 pg/mL [facility] PT/INRon 10-17-2019 INR Coag (PPP) [Relative time] 1.8 {INR} High [facility] Interpretation and review of laboratory results Abnormal [facility] PT Coag (PPP) [Time] 20.1 s High [facility] During the induction phase of oral anticoagulation, the INR may not reflect the anticoagulation status of the patient. Therapeutic ranges for INR's are: Most clinical situations: INR 2.0-3.0 Mechanical Prosthetic Valve: INR 2.5-3.5 Critical: INR >5.0 [facility] TROPONINon 10-17-2019 Troponin I.cardiac [Mass/Vol] 17 ng/L <=45 [facility] Troponin I.cardiac [Mass/Vol] Normal [facility] URINALYSISon 10-17-2019 Bacteria Auto Ql (U) Rare Abnormal None Se en /hpf [facility] Bilirubin Ql (U) Negative Negative [facility] th Clarity Refractometry automated (U) Clear Clear [facility] Color (U) Yellow Colorless, Yellow [facility] Epithelial cells.squamous Auto (Urine sed) [#/Area] <1 [facility] Glucose Auto test strip (U) [Mass/Vol] >=500 Abnormal Negative mg/dL [facility] Hemoglobin Auto test strip Ql (U) Negative Negative [facility] Interpretation and review of laboratory results Abnormal [facility] Ketones (U) [Mass/Vol] Negative Negative mg/dL [facility] Leukocyte esterase Auto test strip Ql (U) Negative Negative [facility] Mucus Auto (Urine sed) [#/Area] Rare None Seen, Rare /lpf [facility] Nitrite Auto test strip Ql (U) Negative Negative [facility] pH (U) 6.0 [pH] [facility] Protein (U) [Mass/Vol] Negative Negative mg/dL [facility] RBC Auto (Urine sed) [#/Area] 1 [facility] Specific gravity (U) [Rel density] 1.036 High [facility] Urobilinogen (U) [Mass/Vol] >=4.0 Abnormal <2.0 mg/dL [facility] WBC Auto (Urine sed) [#/Area] 1 [facility] Microscopic examinat ion is performed on all urinalysis samples and only positive findings are reported. The test for blood on the chemical analytic portion of urinalysis may also be positive due to hemoglobinuria and myoglobinuria and if red blood cells are present they are quantified by microscopic examination. [facility] XR CHEST PA/APon 10-17-2019 XR CHEST PA/AP EXAMINATION: XR CHEST PA/AP HISTORY: edema COMPARISON: Chest radiograph 11/04/2008. FINDINGS: Portable upright AP view performed demonstrating small bilateral, left greater than right pleural effusions. There is mild patchy airspace opacity involving the lower lungs, left greater than right which are nonspecific and may represent atelectasis, pneumonia or aspiration not excluded. There is no pneumothorax identified. Lungs are hyperinflated. Left heart border is partially silhouetted on this study. IMPRESSION: Small, left greater than right, pleural effusions. Patchy parenchymal opacity involving the lower lungs, left greater than right most likely reflecting atelectasis. Pneumonia and/or aspiration not excluded. Pulmonary hyperinflation compatible with COPD. [employer] Workstation ID: [id number] Dictated by: KALYAN BREAUX on MonOct 17, 2019 3:49:50 PM EDT Transcribed by: FREDY DECKER on MonOct 17, 2019 4:20:28 PM EDT Finalized by: KALYAN BREAUX on MonOct 17, 2019 4:31:01 PM EDT [facility] Comment on above: Order Comment: Injur y/Trauma or Illness?:Illness/Other How long have you had these symptoms (acute/chronic)?:Acute Reason for exam?:edema History of cancer?: Surgeries, chemotherapy, or radiation?: Type of Exam?:Initial Additional signs and symptoms?: XR Chest 1 Viewon 10-17-2019 Interface, Rad In Fu ji Speechq - 10/17/2019 4:33 PM EDT EXAMINATION: XR CHEST PA/AP HISTORY: edema COMPARISON: Chest radiograph 11/04/2008. FINDINGS: Portable upright AP view performed demonstrating small bilateral, left greater than right pleural effusions. There is mild patchy airspace opacity involving the lower lungs, left greater than right which are nonspecific and may represent atelectasis, pneumonia or aspiration not excluded. There is no pneumothorax identified. Lungs are hyperinflated. Left heart border is partially silhouetted on this study. IMPRESSION: Small, left greater than right, pleural effusions. Patchy parenchymal opacity involving the lower lungs, left greater than right most likely reflecting atelectasis. Pneumonia and/or aspiration not excluded. Pulmonary hyperinflation compatible with COPD. [employer] Workstation ID: [id number] [facility] Small, left greater than right, pleural effusions. Patchy parenchymal opacity involving the lower lungs, left greater than right most likely reflecting atelectasis. Pneumonia and/or aspiration not excluded. Pulmonary hyperinflation compatible with COPD. [employer] Workstation ID: [id number] [facility] EXAMINATION: XR CHES T PA/AP HISTORY: edema COMPARISON: Chest radiograph 11/04/2008. FINDINGS: Portable upright AP view performed demonstrating small bilateral, left greater than right pleural effusions. There is mild patchy airspace opacity involving the lower lungs, left greater than right which are nonspecific and may represent atelectasis, pneumonia or aspiration not excluded. There is no pneumothorax identified. Lungs are hyperinflated. Left heart border is partially silhouetted on this study. [facility] XR ELBOW RIGHT 3 VIEW (ROUTI NE)on 10-17-2019 XR ELBOW RIGHT 3 VIEW (ROUTINE) EXAMINATION: THREE XRAY VIEWS OF THE RIGHT ELBOW 10/17/2019 9:12 am COMPARISON: 09/24/2019 right elbow radiographs. HISTORY: Pain in right elbow: Right elbow pain, office visit. Pt is unable to supinate right hand. FINDINGS: No definite acute fracture and no dislocation. Osseous mineralization is decreased. Joint spaces are well maintained. There are mild bony proliferative changes at the lateral epicondyle. There is soft tissue swelling along the extensor surface of the right elbow at the proximal ulna. There is mild bony proliferative change at the medial epicondyle and soft tissue swelling suggested at the medial right elbow as well. A small joint effusion cannot be excluded. IMPRESSION: Small right elbow joint effusion is suggested although no discrete fracture is identified on this examination. The right elbow could be further evaluated with CT or MRI as clinically indicated. Mild degenerative changes at the medial and lateral epicondyles. Osteopenia. Edema and/or contusion medial right elbow along with edema, contusion and/or small bursal fluid collection at the extensor surface of the right elbow. Normal [facility] XR SHOULDER RIGHT MIN 2 VIEW S (ROUTINE)on 10-17-2019 XR SHOULDER RIGHT MIN 2 VIEWS (ROUTINE) EXAMINATION: 3 XRAY VIEWS OF THE RIGHT SHOULDER 10/17/2019 9:12 am COMPARISON: 09/24/2019 right shoulder radiographs. HISTORY: Other displaced fracture of upper end of right humerus, subsequent encounter for fracture with routine healing: Other closed displaced fracture of proximal end of right humerus with routine healing, office visit. FINDINGS: There is a largely oblique fracture through the right humeral neck, not significantly changed in alignment. There is sclerosis and some periostitis at the fracture site. There is generalized osteopenia. There is joint space narrowing and marginal osteophyte formation at the acromioclavicular joint. The glenohumeral joint is well maintained. Right upper lung field is clear. IMPRESSION: Healing right proximal humerus fracture, unchanged in alignment. Normal [facility] XR ELBOW RIGHT 3 VIEW (ROUTI NE)on 09-25-2019 XR ELBOW RIGHT 3 VIEW (ROUTINE) EXAMINATION: THREE XRAY VIEWS OF THE RIGHT ELBOW 09/24/2019 11:21 am COMPARISON: 06/27/2028 right humerus radiographs. HISTORY: Pain in right arm:Other specified soft tissue disorders: Pain and swelling of right upper extremity. F/u apt in office. FINDINGS: No definite acute fracture and no dislocation. Osseous mineralization is decreased. Joint spaces are well maintained. There is a small enthesophyte at the lateral epicondyle. Soft tissues are normal. No joint effusion. IMPRESSION: No definite radiographic evidence of acute fracture or dislocation. Normal [facility] XR SHOULDER RIGHT MIN 2 VIEW S (ROUTINE)on 09-25-2019 XR SHOULDER RIGHT MIN 2 VIEWS (ROUTINE) EXAMINATION: 3 XRAY VIEWS OF THE RIGHT SHOULDER 09/24/2019 10:49 am COMPARISON: 09/03/2019 right shoulder radiographs. HISTORY: Other displaced fracture of upper end of right humerus, subsequent encounter for fracture with routine healing: Other closed displaced fracture of proximal end of right humerus. F/u apt in office. FINDINGS: There is a mildly comminuted largely oblique fracture through the right humeral neck which appears slightly more laterally displaced distally. There is increasing periostitis at the fracture site. Osseous mineralization is decreased. There is joint space narrowing and marginal osteophyte formation at the acromioclavicular joint. The glenohumeral joint is fairly well maintained. Right upper lung field is clear. Soft tissues are unremarkable. IMPRESSION: Right humeral neck fracture, slightly changed in position with evidence of interval healing. Normal [facility] XR SHOULDER RIGHT MIN 2 VIEW S (ROUTINE)on 09-05-2019 XR SHOULDER RIGHT MIN 2 VIEWS (ROUTINE) EXAMINATION: Right shoulder radiographs, three views 09/03/2019 10:51 am COMPARISON: 08/13/2019 HISTORY: Follow-up proximal right humerus fracture. FINDINGS: Three views of the right shoulder were obtained. The included right lung is clear. The bones are osteopenic. Mild degenerative change of the right acromioclavicular joint. No AC joint widening. The subacromial space is maintained. Mild degenerative change of the right glenohumeral joint. No dislocation of the right humeral head relative to the glenoid. Relatively similar mildly displaced oblique fracture of the right humeral head/neck junction. IMPRESSION: Osteopenia. Relatively unchanged mildly displaced oblique fracture of the right humeral head/neck junction. Mild degenerative change of the right acromioclavicular and glenohumeral joints. Normal [facility] Venous Duplex Upper Extremit y - unilateralon 09-03-2019 This study is negati ve for both deep venous thrombosis and superficial thrombophlebitis in the veins visualized in the right upper extremity. Bharathi Mathur DO (Electronically Signed) Final Date: 03 September 2019 17:43 [facility] Upper Extremity Venous Duplex Report HETAL JASSO Exam Date: 09/03/2019 17:30 Ordering Physician: TIFFANIE GREENBERG Age 64 Gender: F Exam Location: [facility] Vascular Primary Care Physician: SANDRA RAYA, : VIET : 1955 Ht (in): 65 Wt (lb): 120 Technologist: BREANNA BLAND RVT, RCS BSA: 1.58 m Procedure CPT: Patient Room: [facility]^^ Indications: PAIN,REDNESS,WARMTH,SWELLI NG Examination Performed: Venous duplex examination using B-mode, color flow and spectral Doppler was performed. HISTORY: S/P right shoulder broken 2 months ago. Patient has right upper extremity pain and swelling. PROCEDURES: Venous duplex imaging was performed in only the right upper extremity. The following venous structures were evaluated: internal jugular vein, subclavian vein, axillary vein, brachial veins. In addition, the basilic vein, cephalic vein, radial veins and ulnar veins were also evaluated. In addition, the basilic vein and cephalic vein were also evaluated. Serial compression and augmentation maneuvers were performed. FINDINGS: The internal jugular, subclavian, axillary and brachial veins of the right upper extremity demonstrate spontaneous, phasic and augmented flow. In addition to the above veins the cephalic, basilic, radial and ulnar veins were also visualized. All vessels were compressible without any obvious evidence of thrombus. [facility], Rad Results In - 09/03/2019 5:44 PM EDT Upper Extremity Venous Duplex Report HETAL JASSO Exam Date: 09/03/2019 17:30 Ordering Physician: TIFFANIE GREENBERG Age 64 Gender: F Exam Location: [facility] Vascular Primary Care Physician: SANDRA RAYA, : VIET : 1955 Ht (in): 65 Wt (lb): 120 Technologist: BREANNA BLAND RVT, RCS BSA: 1.58 m Procedure CPT: Patient Room: [facility]^^ Indications: PAIN,REDNESS,WARMTH,SWELLI NG Examination Performed: Venous duplex examination using B-mode, color flow and spectral Doppler was performed. HISTORY: S/P right shoulder broken 2 months ago. Patient has right upper extremity pain and swelling. PROCEDURES: Venous duplex imaging was performed in only the right upper extremity. The following venous structures were evaluated: internal jugular vein, subclavian vein, axillary vein, brachial veins. In addition, the basilic vein, cephalic vein, radial veins and ulnar veins were also evaluated. In addition, the basilic vein and cephalic vein were also evaluated. Serial compression and augmentation maneuvers were performed. FINDINGS: The internal jugular, subclavian, axillary and brachial veins of the right upper extremity demonstrate spontaneous, phasic and augmented flow. In addition to the above veins the cephalic, basilic, radial and ulnar veins were also visualized. All vessels were compressible without any obvious evidence of thrombus. IMPRESSION: This study is negative for both deep venous thrombosis and superficial thrombophlebitis in the veins visualized in the right upper extremity. Bharathi Mathur DO (Electronically Signed) Final Date: 03 September 2019 17:43 [facility] XR SHOULDER RIGHT MIN 2 VIEW S (ROUTINE)on 08-15-2019 XR SHOULDER RIGHT MIN 2 VIEWS (ROUTINE) EXAMINATION: Right shoulder radiographs, three views 08/13/2019 10:36 am COMPARISON: 07/17/2019 HISTORY: Follow-up proximal right humerus fracture FINDINGS: Three views of the right shoulder were obtained. The included right lung is clear. The bones are osteopenic. Similar mild degenerative change of the right glenohumeral and acromioclavicular joints. No AC joint widening. The subacromial space is maintained. Mildly displaced is, comminuted fracture at the right humeral head/neck junction is not significantly changed. No glenohumeral joint dislocation. IMPRESSION: Osteopenia. Similar mildly displaced transverse comminuted fracture of the right humeral head/neck junction. Similar mild degenerative change of the right acromioclavicular and glenohumeral joints. Normal [facility] XR SHOULDER RIGHT MIN 2 VIEW S (ROUTINE)on 07-08-2019 XR SHOULDER RIGHT MIN 2 VIEWS (ROUTINE) Exam: XR Shoulder RT Min 2 Views (Routine) Indications: Findings: X-ray examination of her right proximal humerus today show that she has acceptable alignment of her surgical neck fracture with acceptable bony apposition. Impression: Fracture of the surgical neck of the right proximal humerus with acceptable alignment closed displaced fracture of proximal end of right humerus Pt sts she fell a week ago Pt unable to tolerate axillary Normal [facility] XR Shoulder RT Min 2 Views ( Routine)on 07-08-2019 Exam: XR Shoulder RT Min 2 Views (Routine) Indications: Findings: X-ray examination of her right proximal humerus today show that she has acceptable alignment of her surgical neck fracture with acceptable bony apposition. Impression: Fracture of the surgical neck of the right proximal humerus with acceptable alignment [facility] XR HUMERUS RIGHT 2 VIEWon XR HUMERUS RIGHT 2 VIEW EXAMINATION: TWO XRAY VIEWS OF THE RIGHT HUMERUS 06/28/2019 2:56 pm COMPARISON: None. HISTORY: Unspecified injury of right shoulder and upper arm, initial encounter: Diagnosis: Injury of right shoulder, initial encounter S49.91XA (ICD-10-CM) FINDINGS: Severe osteopenia. Acute fracture noted involving the right humeral surgical neck extending to the head. No dislocation. Moderate arthrosis at the right shoulder joint. The right elbow joint demonstrates grtv-us-dhkwzlca arthrosis without fracture. IMPRESSION: Acute fracture right humeral surgical neck extending to the right humeral head. No dislocation. Normal [facility] XR Humerus RT 2 Viewon 06-27 Acute fracture right humeral surgical neck extending to the right humeral head. No dislocation. [facility] EXAMINATION: TWO XRA Y VIEWS OF THE RIGHT HUMERUS 06/28/2019 2:56 pm COMPARISON: None. HISTORY: Unspecified injury of right shoulder and upper arm, initial encounter: Diagnosis: Injury of right shoulder, initial encounter S49.91XA (ICD-10-CM) FINDINGS: Severe osteopenia. Acute fracture noted involving the right humeral surgical neck extending to the head. No dislocation. Moderate arthrosis at the right shoulder joint. The right elbow joint demonstrates hqwd-px-yrgybfhy arthrosis without fracture. [facility], Rad Results In - 06/28/2019 3:19 PM EDT EXAMINATION: TWO XRAY VIEWS OF THE RIGHT HUMERUS 06/28/2019 2:56 pm COMPARISON: None. HISTORY: Unspecified injury of right shoulder and upper arm, initial encounter: Diagnosis: Injury of right shoulder, initial encounter S49.91XA (ICD-10-CM) FINDINGS: Severe osteopenia. Acute fracture noted involving the right humeral surgical neck extending to the head. No dislocation. Moderate arthrosis at the right shoulder joint. The right elbow joint demonstrates [id number]-[id number] arthrosis without fracture. IMPRESSION: Acute fracture right humeral surgical neck extending to the right humeral head. No dislocation. [facility] XR SHOULDER RIGHT MIN 2 VIEW S (ROUTINE)on 06-28-2019 TSH Qn EXAMINATION: 3 XRAY VIEWS OF THE RIGHT SHOULDER 06/28/2019 2:56 pm COMPARISON: None. HISTORY: Unspecified injury of right shoulder and upper arm, initial encounter: Diagnosis: Injury of right shoulder, initial encounter S49.91XA (ICD-10-CM) FINDINGS: Acute fracture noted involving the right humeral neck extending to the head. No dislocation. Severe osteopenia. Moderate arthrosis. IMPRESSION: Acute fracture right humeral surgical neck extending to the head. Osteopenic and degenerative changes. Normal [facility] XR Shoulder RT Min 2 Views ( Routine)on 06-28-2019 Acute fracture right humeral surgical neck extending to the head. Osteopenic and degenerative changes. [facility] EXAMINATION: 3 XRAY VIEWS OF THE RIGHT SHOULDER 06/28/2019 2:56 pm COMPARISON: None. HISTORY: Unspecified injury of right shoulder and upper arm, initial encounter: Diagnosis: Injury of right shoulder, initial encounter S49.91XA (ICD-10-CM) FINDINGS: Acute fracture noted involving the right humeral neck extending to the head. No dislocation. Severe osteopenia. Moderate arthrosis. [facility], Rad Results In - 06/28/2019 3:19 PM EDT EXAMINATION: 3 XRAY VIEWS OF THE RIGHT SHOULDER 06/28/2019 2:56 pm COMPARISON: None. HISTORY: Unspecified injury of right shoulder and upper arm, initial encounter: Diagnosis: Injury of right shoulder, initial encounter S49.91XA (ICD-10-CM) FINDINGS: Acute fracture noted involving the right humeral neck extending to the head. No dislocation. Severe osteopenia. Moderate arthrosis. IMPRESSION: Acute fracture right humeral surgical neck extending to the head. Osteopenic and degenerative changes. [facility] TRICH, GC, AND CHLAMYDIA BY PCR, SWABon 06-13-2019 CHLAMYDIA DNA, SWAB Negative Normal NEGATIVE [facility] [employer] [facility] Comment on above: Result Comment: The GeneXpert CT/NG Assay is an automated in vitro diagnostic test used for the qualitative detection and differentiation of DNA from CT and NG using real-time polymerase chain reaction(PCR). The GeneXpert CT/NG assay should not be used for the evaluation of medico-legal indications. Its performance has not been evaluated in patients less than 14 years of age, in women, or in patients with a history of hysterectomy. Performed By: #### G CCTS #### [facility] [address] [place] [address] N GONORRHEA DNA, SWAB Negative Normal NEGATIVE [facility] Comment on above: Result Comment: The GeneXpert CT/NG Assay is an automated in vitro diagnostic test used for the qualitative detection and differentiation of DNA from CT and NG using real-time polymerase chain reaction(PCR). The GeneXpert CT/NG assay should not be used for the evaluation of medico-legal indications. Its performance has not been evaluated in patients less than 14 years of age, in women, or in patients with a history of hysterectomy. Performed By: #### G CCTS #### [facility] [address] [place] [address] TRICHOMONAS DNA, SWAB Negative Normal NEGATIVE [facility] Comment on above: Performed By: #### G CCTS #### [facility] [address] [place] [address] URINE CULTUREon 06-13-2019 Bacteria identified Cx Nom (U) [facility] Department of Laboratory Medicine PATIENT: HETAL JASSO LOCATION: [facility] I.D.#: : [id number] AGE: 64 SEX: F DISCHARGED: // M I C R O B I O L O G Y ORDER #: [id number] ORDERED BY: TRAVIS DOMINGUEZ SOURCE: URINE URCC COLLECTED: 06/13/2019 11:08 URINE CULTURE - F 06/15/2019 10:01 No Growth. __ S = Sensitive R = Resisitant I = Intermediate __ __ LAB: [facility] [address] ATT.PHYS.: TRAVIS DOMINGUEZ LOCATION: [facility] Comment on above: Performed By: #### U C #### Main Laboratory [address] [place], [place] VAGINAL CULTUREon 06-12-2019 VAGINAL CULTURE [facility] of Laboratory Medicine PATIENT: HETAL JASSO LOCATION: [facility] I.D.#: : [id number] AGE: 64 SEX: F DISCHARGED: // M I C R O B I O L O G Y ORDER #: [id number] ORDERED BY: TRAVIS DOMINGUEZ SOURCE: VAGINAL VAGDR COLLECTED: 06/12/2019 17:01 VAGINAL CULTURE - F 06/15/2019 08:45 Small amount of Normal Vaginal Josette also present. GRAM STAIN - F 06/13/2019 18:29 Many Gram Positive bacilli. Gram Stain NOT consistent with bacterial vaginosis. VAGINAL CULTURE - F 06/15/2019 08:45 Organism #1 - Yeast Few __ S = Sensitive R = Resisitant I = Intermediate __ __ LAB: [facility] [address] ATT.PHYS.: TRAVIS DOMINGUEZ LOCATION: [facility] Comment on above: Performed By: #### V AG #### Main Laboratory [address] [place], [place] Urine culture and sensitivit yon 04-03-2019 Bacteria identified Cx Nom (U) Escherichia coli >100,000 /mL [facility] Site: Not Specified [facility] is [facility] POCT rack urineon 04-01-2019 Bilirubin, UA moderate [facility] Blood, UA moderate [facility] Clarity, UA clear [facility] Color, UA reddish [facility] Glucose, UA Negative [facility] Ketones, UA trace [facility] Leukocytes, UA Positive [facility] Nitrite, UA trace [facility] pH, UA 5.5 [facility] Protein (U) [Mass/Vol] 30 mg/dL [facility] Spec Grav, UA >=1.030 [facility] Urobilinogen, UA 1.0 [facility] URINE CULTUREon 04-01-2019 Bacteria identified Cx Nom (U) gnr >100,000 /mL Normal [facility] Comment on above: Order Comment: Site: Not Specified Performed By: #### [id number] #### [place] [address] XR HAND LEFT MIN 3 VIEW (ROU AMIRA)on 02-14-2019 XR HAND LEFT MIN 3 VIEW (ROUTINE) EXAMINATION: Left hand radiographs, four views 02/13/2019 1:25 pm COMPARISON: 01/21/2019 HISTORY: Follow-up left 4th metacarpal fracture FINDINGS: Four views of the left hand were obtained. The bones are osteopenic. The distal left radius and ulna are intact. Mild negative ulnar variance. Tfmu-jl-fkqyycam degenerative change at the 1st carpal/metacarpal joint.. There are mild degenerative changes of the interphalangeal and metacarpophalangeal joints. A minimally displaced transverse fracture of the distal left 4th metacarpal is not significantly changed. IMPRESSION: Osteopenia. Mild degenerative changes in the left hand as above, likely due to osteoarthritis. A minimally displaced fracture of the distal left 4th metacarpal is not significantly changed. Normal [facility] XR HAND LEFT MIN 3 VIEW (ROU AMIRA)on 01-22-2019 XR HAND LEFT MIN 3 VIEW (ROUTINE) EXAMINATION: THREE XRAY VIEWS OF THE LEFT HAND 01/21/2019 1:01 pm COMPARISON: None. HISTORY: Contusion of left hand, subsequent encounter: Diagnosis: Contusion of left hand, subsequent encounter S60.222D (ICD-10-CM) Left hand pain status post fall 6 weeks ago. FINDINGS: There is linear lucency through the neck of the left 4th metacarpal consistent with minimally displaced fracture. Osseous mineralization is decreased. There is joint space narrowing at the DIP and PIP joints as well as at the 1st carpometacarpal joint. There is joint space narrowing at the articulation between the distal scaphoid and trapezium. There are small marginal osteophytes at some of these joints. Soft tissues are unremarkable. IMPRESSION: Subacute left 4th metacarpal neck fracture. Mild osteoarthritis of the left hand. Osteopenia. Normal [facility] XR PELVIS 1 OR 2 VIEWon 01-02 XR PELVIS 1 OR 2 VIEW EXAMINATION: SINGLE AP XRAY VIEW OF THE PELVIS 01/21/2019 1:01 pm COMPARISON: None. HISTORY: Pain in right hip: Diagnosis: Pain of right hip joint M25.551 (ICD-10-CM) FINDINGS: No acute fracture and no dislocation. Osseous mineralization is normal. There is mild joint space narrowing at the hips superiorly. There are small marginal osteophytes at the acetabuli. Femoral head contours are normal. The SI joints are normal. There is mild lumbar spondylosis and dextroconvex curvature of the lumbar spine. There is disc disease at L4-5 and L5-S1. Several pelvic calcifications are likely phleboliths. IMPRESSION: Mild osteoarthritis of the hips. Normal [facility] URINE CULTUREon 01-21-2019 Bacteria identified Cx Nom (U) gnr >100,000 /mL Normal [facility] Comment on above: Order Comment: Site: Not Specified Performed By: #### [id number] #### [place] [address] XR LUMBAR SPINE 2 OR 3 VIEWS on 01-09-2019 XR LUMBAR SPINE 2 OR 3 VIEWS EXAMINATION: THREE XRAY VIEWS OF THE LUMBAR SPINE 01/07/2019 12:37 pm COMPARISON: None. HISTORY: pain FINDINGS: There are 5 lumbar type vertebral bodies. There is straightening of the normal lumbar lordosis. Vertebral body heights are preserved without evidence for fracture. There is minimal retrolisthesis at L1-L2 and L2-L3 with minimal anterolisthesis at L3-L4. There is moderate disc space narrowing at L4-L5 and severe disc space narrowing at L5-S1. IMPRESSION: 1. Moderate lower lumbar spondylosis without evidence for acute fracture. 2. Straightening suggests spasm. Normal [facility] Vital Signs Date Time Vital Sign Value Performing Clinician Facility 08-08-2022 15:20-0400 Diastolic blood pressure 68 mm[Hg] DO Marcelo [employer] Work Phone: [facility] 08-08-2022 15:20-0400 Heart rate 81 /min DO [employer] Work Phone: [facility] 08-08-2022 15:20-0400 Respiratory rate 18 /min DO [employer] Work Phone: [facility] 08-08-2022 15:20-0400 SaO2% (BldA) [Mass fraction] 98 % DO [employer] Work Phone: [facility] 08-08-2022 15:20-0400 Systolic blood pressure 107 mm[Hg] DO [employer] Work Phone: [facility] 08-08-2022 14:35-0400 Body height 161.29 cm DO [employer] Work Phone: [facility] 08-08-2022 14:35-0400 Body temperature 97.8 [degF] DO [employer] Work Phone: [facility] 08-08-2022 14:35-0400 Body weight 46.17 kg DO [employer] Work Phone: [facility] 07-11-2022 18:30-0400 Body temperature 97.2 [degF] Wilber Riley MD Work Phone: [facility] 07-11-2022 18:30-0400 Diastolic blood pressure 69 mm[Hg] Wilber Riley MD Work Phone: [facility] 07-11-2022 18:30-0400 Heart rate 82 /min Wilber Riley MD Work Phone: [facility] [employer] 07-11-2022 18:30-0400 Respiratory rate 18 /min Wilber Riley MD Work Phone: [facility] [employer] 07-11-2022 18:30-0400 SaO2% (BldA) [Mass fraction] 94 % Wilber Riley MD Work Phone: [facility] 07-11-2022 18:30-0400 Systolic blood pressure 106 mm[Hg] Wilber Riley MD Work Phone: [facility] [employer] 07-11-2022 10:00-0400 Body height 165.1 cm Wilber Riley MD Work Phone: [facility] [employer] 07-11-2022 05:03-0400 Body mass index (BMI) [Ratio] 17.81 kg/m2 Wilber Riley MD Work Phone: [facility] [employer] 07-11-2022 05:03-0400 Body weight 48.53 kg Wilber Riley MD Work Phone: [facility] [employer] 01-14-2022 10:03-0400 Body height 161.29 cm DO Marcelo [employer] Work Phone: [facility] 01-14-2022 10:03-0400 Body weight 48.94 kg DO Marcelo [employer] Work Phone: [facility] 01-14-2022 10:03-0400 Diastolic blood pressure 53 mm[Hg] DO Marcelo [employer] Work Phone: [facility] 01-14-2022 10:03-0400 Heart rate 86 /min DO Marcelo Furlong Work Phone: [facility] 01-14-2022 10:03-0400 Respiratory rate 20 /min DO Marcelo Furlong Work Phone: [facility] 01-14-2022 10:03-0400 SaO2% (BldA) [Mass fraction] 98 % DO Marcelo [employer] Work Phone: [facility] 01-14-2022 10:03-0400 Systolic blood pressure 88 mm[Hg] DO Marcelo [employer] Work Phone: [facility] 11-01-2021 15:50-0400 Body temperature 97.6 [degF] DO Marcelo Furlong Work Phone: [facility] 11-01-2021 15:50-0400 Diastolic blood pressure 61 mm[Hg] DO Marcelo Furlong Work Phone: [facility] 11-01-2021 15:50-0400 Heart rate 92 /min DO Marcelo Furlong Work Phone: [facility] 11-01-2021 15:50-0400 Respiratory rate 20 /min DO Marcelo Furlong Work Phone: [facility] 11-01-2021 15:50-0400 SaO2% (BldA) [Mass fraction] 98 % DO Marcelo Furlong Work Phone: [facility] 11-01-2021 15:50-0400 Systolic blood pressure 98 mm[Hg] DO Marcelo Furlong Work Phone: [facility] 11-01-2021 05:25-0400 Body weight 55 kg DO Marcelo Furlong Work Phone: [facility] 10-29-2021 13:18-0400 Body height 165.1 cm DO Marcelo Furlong Work Phone: [facility] 10-28-2021 16:00-0400 Inhaled oxygen flow rate 2 L/min DO Marcelo Furlong Work Phone: [facility] 10-25-2021 19:14-0400 Body mass index (BMI) [Ratio] 19.7 kg/m2 DO Marcelo Furlong Work Phone: [facility] 07-12-2021 11:18-0400 Body temperature 98.1 [degF] DO Marcelo Furlong Work Phone: [facility] 06-23-2021 11:30-0400 Body height 165.1 cm Rc [employer] Other [employer] Other 06-23-2021 11:30-0400 Body mass index (BMI) [Ratio] 17.47 kg/m2 [employer]c [employer] Other [employer] Other 06-23-2021 11:30-0400 Body weight 47.63 kg Rc [employer] Other [employer] Other 06-23-2021 11:30-0400 Diastolic blood pressure 56 mm[Hg] Rc [employer] Other [employer] Other 06-23-2021 11:30-0400 Systolic blood pressure 91 mm[Hg] Rc [employer] Other [employer] Other 03-18-2021 15:15-0500 Body height 165.1 cm Rc [employer] Other [employer] Other 03-18-2021 15:15-0500 Body mass index (BMI) [Ratio] 17.14 kg/m2 [employer] Other [employer] Other 03-18-2021 15:15-0500 Body weight 46.72 kg Rc [employer] Other [employer] Other 01-26-2021 14:45-0400 Body height 165.1 cm Rc [employer] Other [employer] Other 01-26-2021 14:45-0400 Body mass index (BMI) [Ratio] 17.47 kg/m2 [employer] Other [employer] Other 01-26-2021 14:45-0400 Body weight 47.63 kg Rc Manjit Other [facility] [employer] Other 07-07-2020 14:35-0400 Body Temperature 98.4 [degF] [employer] Phone: 07-07-2020 14:35-0400 BP Diastolic 53 mm[Hg] [employer] Phone: 07-07-2020 14:35-0400 BP Systolic 97 mm[Hg] [employer] Phone: 07-07-2020 14:35-0400 Pulse (Heart Rate) 71 /min [employer] Phone: 07-07-2020 14:35-0400 Pulse Oximetry 94 % [employer] Phone: 07-07-2020 14:35-0400 Respiratory Rate 16 /min [employer] Phone: 07-06-2020 12:35-0400 Height 165.1 cm [employer] Phone: 07-04-2020 22:06-0400 BMI (Body Mass Index) 19.8 kg/m2 [employer] Phone: 07-04-2020 22:06-0400 Body weight 53.98 kg [employer] Phone: 10-26-2019 10:27-0400 BP Diastolic 60 mm[Hg] [facility] 10-26-2019 10:27-0400 BP Systolic 96 mm[Hg] [facility] 10-26-2019 10:27-0400 Pulse (Heart Rate) 91 /min [facility] 10-26-2019 10:25-0400 Body Temperature 98.2 [degF] [facility] 10-26-2019 10:25-0400 Pulse Oximetry 92 % [facility] 10-26-2019 10:25-0400 Respiratory Rate 14 /min [facility] 10-23-2019 09:36-0400 BMI (Body Mass Index) 22.38 kg/m2 [facility] 10-23-2019 09:36-0400 Body weight 61 kg [facility] 10-23-2019 09:36-0400 Height 165.1 cm [facility] 10-18-2019 07:45-0400 Pulse (Heart Rate) 96 /min Lesviajustin Salcido [facility] 10-18-2019 07:45-0400 Pulse Oximetry 94 % Lesviajustin Salcido [facility] 10-18-2019 07:45-0400 Respiratory Rate 20 /min Lesviajustin Salcido [facility] 10-18-2019 07:04-0400 BP Diastolic 64 mm[Hg] Lesvia Salcido [facility] 10-18-2019 07:04-0400 BP Systolic 106 mm[Hg] Lesvia Salcido [facility] 10-17-2019 15:04-0400 BMI (Body Mass Index) 21.3 kg/m2 Lesviajustin Salcido [facility] 10-17-2019 15:04-0400 Body Temperature 98.01 [degF] Lesvia Salcido [facility] 10-17-2019 15:04-0400 Body [facility] 58.06 [facility] 10-17-2019 15:04-0400 Height [facility].1 [facility]-17-[facility] 13:45-0400 BMI (Body Mass Index) 21.3 kg/m2 [facility] 10-17-2019 13:45-0400 Body Temperature 97.81 [degF] Ashia [facility] 10-17-2019 13:45-0400 Body weight 58.06 kg Ashia [facility] 10-17-2019 13:45-0400 BP Diastolic 74 mm[Hg] Ashia [facility] 10-17-2019 13:45-0400 BP Systolic 118 mm[Hg] Ashia [facility] 10-17-2019 13:45-0400 Height 165.1 cm Ashia [facility] 10-17-2019 13:45-0400 Pulse (Heart Rate) 100 /min Ashia [facility] 10-17-2019 13:45-0400 Pulse Oximetry 93 % Ashia Aguirre [facility] 10-17-2019 13:45-0400 Respiratory Rate 18 /min Ashia Aguirre [facility] Encounters Encounter Date Encounter Type Care Provider Facility Start: 02-08-2023 End: 02-08-2023 ambulatory SHRUTHI AQUINO [facility] Start: 12-14-2022 End: 12-14-2022 ambulatory DUSTY JUANITAJAZZ [facility] Start: 10-17-2022 ambulatory Xander an II Facility:[facility] Start: 08-08-2022 End: 08-08-2022 ambulatory DO Marcelo Furlong Work Phone: [facility] Work Phone: Start: 08-08-2022 End: 08-08-2022 Registered Recurring DO Marcelo Furlong Work Phone: [facility] Work Phone: Start: 07-10-2022 ambulatory [facility] Start: 07-10-2022 End: 07-11-2022 Evaluation and management of inpatient Wilber Riley MD Work Phone: [facility] Comment on above: Closed fracture of l eft tibial plateau, initial encounter (Primary Dx) Start: 04-13-2022 Office outpatient vi sit 25 minutes Karel Moralez II [facility] Start: 04-13-2022 End: 04-13-2022 ambulatory Karel Moralez II [employer] Other Start: 01-20-2022 Office outpatient vi sit 25 minutes Karel Moralez II [facility] Start: 01-20-2022 End: 01-20-2022 ambulatory DO Marcelo Furlong Work Phone: [employer] Other Start: 01-20-2022 End: 01-20-2022 Patient encounter procedure DO Marcelo Furlong Work Phone: [facility] Start: 01-14-2022 End: 01-14-2022 ambulatory DO Marcelo Furlong Work Phone: [facility] Work Phone: Start: 01-14-2022 End: 01-14-2022 Registered Recurring DO Marcelo Furlong Work Phone: [facility] Start: 01-03-[address] Keo SARAVIA Facili ty:H1 Start: 12-09-2021 Office outpatient vi sit 25 minutes Karel Kirt II [facility] Start: 12-09-2021 End: 12-09-2021 ambulatory Karel Moralez II [employer] Other Start: 12-09-2021 End: 12-09-2021 Patient encounter procedure DO Marcelo Furlong Work Phone: [facility] Start: 11-18-2021 End: 11-18-2021 ambulatory Karel Duncanle II Other [employer] Other Start: 11-18-2021 Telephone encounter Karel Moralez II [facility] Start: 10-25-2021 End: 11-01-2021 Evaluation and management of inpatient DO Marcelo Furlong Work Phone: [facility] Start: 10-25-2021 End: 10-25-2021 ambulatory STEVEN GANT Facility:H1 Start: 10-14-2021 End: 10-15-[address] MARCELO ANN Facility:H1 Start: 09-01-2021 End: 09-01-[address] MARCELO ANN Facility:H1 Start: 07-13-2021 End: 07-13-2021 ambulatory Rc Saravia Other [employer] Other Start: 07-13-2021 Telephone encounter Rc Stapleton [facility] Start: 06-23-2021 End: 06-23-2021 ambulatory Rc Saravia Other [employer] Other Start: 06-23-2021 Office outpatient vi sit 15 minutes Rc Saravia [facility] Start: 06-16-2021 End: 06-16-[address] MARCELO ANN Facility:H1 Start: 06-11-2021 End: 06-24-[address] MARCELO ANN Facility:H1 Start: 06-09-2021 End: 06-09-2021 ambulatory Rc Saravia Other [employer] Other Start: 06-09-2021 Telephone encounter Rc Stapleton [facility] Start: 05-19-2021 End: 05-19-[address] MARCELO ANN Facility:[facility]1 Start: 05-13-2021 End: 05-27-[address] MARCELO ANN Facility:[facility]1 Start: 04-19-[address] MARCELO ANN Fac ility:H1 Start: 04-15-2021 End: 05-13-[address] NIKO LAZO Facility:H1 Start: 04-01-2021 End: 04-05-2021 Evaluation and management of inpatient [facility] Facility:H1 Start: 03-25-[address] NIKO LAZO [facility] ty:[facility] Start: 03-18-2021 Office outpatient vi sit 15 minutes Rc Saravia [facility] Start: 03-18-2021 End: 04-01-[address]ARCELO ANN [facility] [employer] Other Start: 02-18-2021 End: 02-18-[address] NIKO LAZO Facility:H1 Start: 01-27-2021 End: 01-27-[address] MARCELO ANN Facility:H1 Start: 01-26-2021 Office outpatient vi sit 15 minutes Rc Saravia [facility] Start: 01-19-2021 AUDIT Rc Saravia Work Phone: [id number] Work Phone: Start: 01-13-2021 End: 01-13-[address] MARCELO ANN Facility:H1 Start: 12-23-2020 End: 12-23-2020 Subsequent hospital visit by physician Maryjane Momin MD Work Phone: [facility] Start: 12-22-2020 End: 12-22-2020 Subsequent hospital visit by physician Maryjane Momin MD Work Phone: [facility] Start: 10-19-2020 Office outpatient ne w 45 minutes Rc Saravia Work Phone: [id number] Work Phone: Start: 07-04-2020 End: 07-07-2020 Evaluation and management of inpatient Maryjane Momin Work Phone: [facility] Comment on above: Hepatic encephalopat hy (HCC) (Primary Dx); Acute cystitis without hematuria Start: 06-18-2020 End: 06-18-2020 Subsequent hospital visit by physician [facility] Start: 06-15-2020 End: 06-15-2020 Subsequent hospital visit by physician [facility] Start: 05-11-2020 End: 05-11-2020 Orders Only Nancy Alonso Work Phone: [facility] Start: 01-09-2020 Evaluation and management of inpatient -Dept of Endocrinology Start: 12-26-2019 End: 12-26-2019 Patient encounter procedure ZACH MONTELONGO [facility] Start: 10-18-2019 End: 10-26-2019 Evaluation and management of inpatient LESVIAJUSTIN SALCIDO [facility] Start: 10-18-2019 End: 10-26-2019 Evaluation and management of inpatient [facility] Work Phone: [facility] Surgical Unit 1 Comment on above: Decompensated hepati c cirrhosis (HCC) (Primary Dx) Start: 10-17-2019 End: 10-18-2019 Emergency department patient visit PHYSICIAN [facility] Start: 10-17-2019 End: 10-17-2019 Patient encounter procedure PHYSICIAN CHARLINE [facility] Start: 10-17-2019 End: 10-18-2019 Emergency department patient visit Lesvia Salcido Work Phone: [facility] Emergency Department Comment on above: Neutropenia, unspeci fied type (HCC) (Primary Dx); Thrombocytopenia (HCC); Dyspnea, unspecified type; Hypoxia; Hyperglycemia; Abnormal LFTs; Pedal edema; Other ascites; Bilateral pleural effusion Start: 10-17-2019 End: 10-17-2019 Office outpatient visit 10 minutes Ashia Spencer Aguirre Work Phone: [facility] [place] Comment on above: Dyspnea, unspecified type (Primary Dx); Bilateral lower extremity edema Start: 09-03-2019 End: 09-03-2019 Subsequent hospital visit by physician Tiffanie Greenberg Work Phone: [facility] Comment on above: Pain and swelling of right upper extremity Start: 07-08-2019 End: 07-08-2019 Subsequent hospital visit by physician Maryanne Fuentes Work Phone: [facility] Comment on above: Other closed displac ed fracture of proximal end of right humerus, initial encounter Start: 06-28-2019 End: 06-28-2019 Subsequent hospital visit by physician Sandra Raya Work Phone: [facility] [place] Comment on above: Injury of right shou lder, initial encounter Start: 06-13-2019 End: 06-14-2019 Patient encounter procedure TRAVIS DOMINGUEZ Facility:[place] Start: 06-12-2019 End: 06-13-2019 Patient encounter procedure TRAVIS DOMINGUEZ Facility:[place] Start: 06-12-2019 End: 06-13-2019 Patient encounter procedure TRAVIS DOMINGUEZ Facility:[place] Start: 04-17-2019 End: 04-17-2019 Telephone encounter Sandra Raya Work Phone: [facility] Comment on above: Urinary Frequency Start: 04-02-2019 End: 04-02-2019 Telephone encounter Sandra Raya Work Phone: [facility] Comment on above: Other Start: 04-01-2019 End: 04-01-2019 Orders Only Sandra Raya Work Phone: [facility] Comment on above: Urinary frequency; Burning with urination; Incontinence; Recurrent UTI Urinary frequency (P rimary Dx); Burning with urination; Incontinence; Recurrent UTI Start: 01-21-2019 End: 01-21-2019 Subsequent hospital visit by physician Anna White Work Phone: [facility] Comment on above: Urinary frequency Start: 01-21-2019 End: 01-21-2019 Subsequent hospital visit by physician Anna White Work Phone: [facility] [place] Comment on above: Pain of right hip patricia int; Contusion of left hand, subsequent encounter Start: 01-07-2019 End: 01-07-2019 Subsequent hospital visit by physician Anna White Work Phone: [facility] [place] Comment on above: History of recent fa ll Procedures Date Procedure Procedure Detail Performing Clinician Start: 07-11-2022 GLUCOSE, WHOLE BLOOD Joe Ash MD Work Phone: Start: 07-11-2022 GLUCOSE, WHOLE BLOOD Mane Cooley MD Work Phone: Start: 07-11-2022 COVID-19, RAPID Joe Ash MD Work Phone: Start: 07-11-2022 GLUCOSE, WHOLE BLOOD Mane Cooley MD Work Phone: Start: 07-11-2022 GLUCOSE, WHOLE BLOOD Mane Cooley MD Work Phone: Start: 07-11-2022 Blood count complete auto&auto difrntl wbc Wilber Riley MD Work Phone: Start: 07-11-2022 IMMATURE PLATELET FRACTION Wilber hilliard MD Work Phone: Start: 07-10-2022 End: 07-10-2022 GLUCOSE, WHOLE BLOOD Wilber Dixon Work Phone: Start: 07-10-2022 Intermittent pulse oximetry Wilber Riley MD Work Phone: Start: 07-10-2022 Comprehensive metabolic panel Tony colunga PA-C Work Phone: Start: 07-10-2022 IMMATURE PLATELET FRACTION Tony Gar A-C Work Phone: Start: 07-10-2022 GLUCOSE, WHOLE BLOOD Dipakkumar P Momin M D Work Phone: Start: 07-10-2022 Ct lower extremity w/o contrast material Tony Bedoya PA-C Work Phone: Start: 07-10-2022 End: 07-10-2022 Radiologic examination knee 3 views Mary Bedoya PA-C Work Phone: Start: 01-20-2022 Plain X-ray of left hip DO Marcelo Furlon g Work Phone: Start: 12-09-2021 Plain X-ray of left hip DO Marcelo Furlon g Work Phone: Start: 10-27-2021 CT of head without contrast DO Marcelo Fu rlong Work Phone: Start: 10-26-2021 Plain X-ray of right tibia and right fibula DO Marcelo Furlong Work Phone: Start: 10-25-2021 Plain X-ray of left hip DO Marcelo Furlon g Work Phone: Start: 10-25-2021 Open reduction of fracture of femur with internal fixation DO Marcelo Furlong Work Phone: Start: 10-25-2021 Plain X-ray of left femur DO Marcelo Furl aston Work Phone: Start: 10-25-2021 Plain chest X-ray DO Marcelo Furlong Work Phone: Start: 07-07-2020 GLUCOSE, WHOLE BLOOD Dipakkumar P Momin Work Phone: Start: 07-07-2020 GLUCOSE, WHOLE BLOOD Dipakkumar P Momin Work Phone: Start: 07-07-2020 End: 07-07-2020 GLUCOSE, WHOLE BLOOD Dipakkumar P Momin Work Phone: Start: 07-07-2020 Assay of magnesium Shari Ching Work Phone: Start: 07-07-2020 Blood count complete auto&auto difrntl wbc Shari Ching Work Phone: Start: 07-07-2020 IMMATURE PLATELET FRACTION Shari boogie Work Phone: Start: 07-06-2020 GLUCOSE, WHOLE BLOOD Dipakkumar P Momin Work Phone: Start: 07-06-2020 GLUCOSE, WHOLE BLOOD Dipakkumar P Momin Work Phone: Start: 07-06-2020 GLUCOSE, WHOLE BLOOD Dipakkumar P Momin Work Phone: Start: 07-06-2020 Us abdominal real time w/image limited Wilber Riley Work Phone: Start: 07-06-2020 GLUCOSE, WHOLE BLOOD Dipakkumar P Momin Work Phone: Start: 07-06-2020 Procalcitonin (pct) Shari Ching Work Phone: Start: 07-06-2020 Assay of ammonia Wilber Riley Work Phone: Start: 07-05-2020 GLUCOSE, WHOLE BLOOD Wilber Riley Work Phone: Start: 07-05-2020 GLUCOSE, WHOLE BLOOD Wilber Riley Work Phone: Start: 07-05-2020 GLUCOSE, WHOLE BLOOD Wilber Riley Work Phone: Start: 07-05-2020 GLUCOSE, WHOLE BLOOD Wilber Riley Work Phone: Start: 07-05-2020 Blood count complete auto&auto difrntl wbc Wilber Riley Work Phone: Start: 07-05-2020 Blood count complete automated Wilber Just in Aaron Work Phone: Start: 07-05-2020 IMMATURE PLATELET FRACTION Wilber hilliard Work Phone: Start: 07-04-2020 Assay of lactate Wilber Riley Work Phone: Start: 07-04-2020 GLUCOSE, WHOLE BLOOD Wilber Riley Work Phone: Start: 07-04-2020 Intermittent pulse oximetry Wilber Riley Work Phone: Start: 07-04-2020 Radiologic exam chest single view Jose Dolan Work Phone: Start: 07-04-2020 COVID-19, RAPID Jose Dolan Work Phone: Start: 07-04-2020 Urinalysis microscopic only Jose Metcalf uda Work Phone: Start: 07-04-2020 Urnls dip stick/tablet rgnt auto w/o microscopy Jose Dolan Work Phone: Start: 07-04-2020 Assay of ammonia Jose Dolan Work Phone: Start: 07-04-2020 Assay of lactate Jose Dolan Work Phone: Start: 07-04-2020 Blood count complete auto&auto difrntl wbc Jose Dolan Work Phone: Start: 07-04-2020 Comprehensive metabolic panel Jose Jason Glass mmuda Work Phone: Start: 07-04-2020 End: 07-04-2020 CULTURE, BLOOD 1 Jose Dolan Work Phone: Start: 07-04-2020 IMMATURE PLATELET FRACTION Jose Metcalfu da Work Phone: Start: 06-18-2020 Urnls dip stick/tablet reagent auto microscopy Dipakkumar P Momin Work Phone: Start: 06-15-2020 Basic metabolic panel calcium total Yolie kkumar P Momin Work Phone: Start: 10-26-2019 Glucose [Mass/volume] in Blood [facility] Work Phone: Start: 10-26-2019 Bilirubin.direct [Mass/volume] in Serum or Plasma Rivas Monsalve Work Phone: Start: 10-26-2019 Complete blood count (hemogram) panel - Blood by Automated count Rivas Monsalve Work Phone: Start: 10-26-2019 Comprehensive metabolic 2000 panel - Serum or Plasma Rivas Monsalve Work Phone: Start: 10-26-2019 INR in Platelet poor plasma by Coagulation assay Gladis Kwan Work Phone: Start: 10-25-2019 Glucose [Mass/volume] in Blood [facility] Work Phone: Start: 10-25-2019 Glucose [Mass/volume] in Blood [facility] Work Phone: Start: 10-25-2019 COVID-19, MOLECULAR Rivas Monsalve Work Phone: Start: 10-25-2019 Glucose [Mass/volume] in Blood [facility] Work Phone: Start: 10-25-2019 Glucose [Mass/volume] in Blood [facility] Work Phone: Start: 10-25-2019 Bilirubin.direct [Mass/volume] in Serum or Plasma Rivas Monsalve Work Phone: Start: 10-25-2019 Complete blood count (hemogram) panel - Blood by Automated count Rivas Monsalve Work Phone: Start: 10-25-2019 Comprehensive metabolic 2000 panel - Serum or Plasma Rivas Monsalve Work Phone: Start: 10-25-2019 INR in Platelet poor plasma by Coagulation assay Gladis Kwan Work Phone: Start: 10-24-2019 Glucose [Mass/volume] in Blood [facility] Work Phone: Start: 10-24-2019 Glucose [Mass/volume] in Blood [facility] Work Phone: Start: 10-24-2019 Glucose [Mass/volume] in Blood [facility] Work Phone: Start: 10-24-2019 Glucose [Mass/volume] in Blood [facility] Work Phone: Start: 10-24-2019 Glucose [Mass/volume] in Blood [facility] Work Phone: Start: 10-24-2019 Basic metabolic 2000 panel - Serum or Plasma Rivas Monsalve Work Phone: Start: 10-24-2019 Complete blood count (hemogram) panel - Blood by Automated count Rivas Monsalve Work Phone: Start: 10-24-2019 INR in Platelet poor plasma by Coagulation assay Gladis Kwan Work Phone: Start: 10-24-2019 Glucose [Mass/volume] in Blood [facility] Work Phone: Start: 10-24-2019 Glucose [Mass/volume] in Blood [facility] Work Phone: Start: 10-23-2019 End: 10-23-2019 Glucose [Mass/volume] in Blood [facility] Work Phone: Start: 10-23-2019 Glucose [Mass/volume] in Blood [facility] Work Phone: Start: 10-23-2019 Glucose [Mass/volume] in Blood [facility] Work Phone: Start: 10-23-2019 Glucose [Mass/volume] in Blood [facility] Work Phone: Start: 10-23-2019 End: 10-23-2019 Esophagogastroduodenoscopy Yoandy Kearney Work Phone: Start: 10-23-2019 Endoscopy of esophagus Yoandy Chu thy Work Phone: Start: 10-23-2019 Glucose [Mass/volume] in Blood [facility] Work Phone: Start: 10-23-2019 Bilirubin.direct [Mass/volume] in Serum or Plasma Rivas Monsalve Work Phone: Start: 10-23-2019 Complete blood count (hemogram) panel - Blood by Automated count Rivas Monsalve Work Phone: Start: 10-23-2019 Comprehensive metabolic 2000 panel - Serum or Plasma Rivas Monsalve Work Phone: Start: 10-23-2019 INR in Platelet poor plasma by Coagulation assay Gladis Kwan Work Phone: Start: 10-22-2019 Glucose [Mass/volume] in Blood [facility] Work Phone: Start: 10-22-2019 Glucose [Mass/volume] in Blood [facility] Work Phone: Start: 10-22-2019 Glucose [Mass/volume] in Blood [facility] Work Phone: Start: 10-22-2019 Glucose [Mass/volume] in Blood [facility] Work Phone: Start: 10-22-2019 Bilirubin.direct [Mass/volume] in Serum or Plasma Brenda Leon Work Phone: Start: 10-22-2019 Complete blood count (hemogram) panel - Blood by Automated count Brenda Leon Work Phone: Start: 10-22-2019 Comprehensive metabolic 2000 panel - Serum or Plasma Brenda Leon Work Phone: Start: 10-22-2019 INR in Platelet poor plasma by Coagulation assay Gladis Kwan Work Phone: Start: 10-21-2019 Glucose [Mass/volume] in Blood [facility] Work Phone: Start: 10-21-2019 Glucose [Mass/volume] in Blood [facility] Work Phone: Start: 10-21-2019 Glucose [Mass/volume] in Blood [facility] Work Phone: Start: 10-21-2019 Glucose [Mass/volume] in Blood [facility] Work Phone: Start: 10-21-2019 Bilirubin.direct [Mass/volume] in Serum or Plasma Syeda Kate Work Phone: Start: 10-21-2019 Complete blood count (hemogram) panel - Blood by Automated count Syeda Kate Work Phone: Start: 10-21-2019 Comprehensive metabolic 2000 panel - Serum or Plasma Syeda Kate Work Phone: Start: 10-21-2019 INR in Platelet poor plasma by Coagulation assay Gladis Madisonjeanette Kwan Work Phone: Start: 10-21-2019 Magnesium [Mass/volume] in Serum or Plasma Syeda Ktae Work Phone: Start: 10-20-2019 Glucose [Mass/volume] in Blood [facility] Work Phone: Start: 10-20-2019 Glucose [Mass/volume] in Blood [facility] Work Phone: Start: 10-20-2019 Mri abdomen w/o & w/contrast material Syeda Kate Work Phone: Start: 10-20-2019 Glucose [Mass/volume] in Blood [facility] Work Phone: Start: 10-20-2019 Glucose [Mass/volume] in Blood [facility] Work Phone: Start: 10-20-2019 Alpha-fetoprotein serum [facility] Work Phone: Start: 10-20-2019 INR in Platelet poor plasma by Coagulation assay Gladis Kwan Work Phone: Start: 10-20-2019 Magnesium [Mass/volume] in Serum or Plasma Syeda Kate Work Phone: Start: 10-19-2019 Glucose [Mass/volume] in Blood [facility] Work Phone: Start: 10-19-2019 Glucose [Mass/volume] in Blood [facility] Work Phone: Start: 10-19-2019 Gl[facility] [Mass/volume] [facility] Work Phone: Start: 10-19-2019 Glucose [Mass/volume] [facility] Work Phone: Start: 10-19-2019 Bilirubin.direct [Mass/volume] in Serum or Plasma Gladis Kwan Work Phone: Start: 10-19-2019 Complete blood count (hemogram) panel - Blood by Automated count Gladis Kwan Work Phone: Start: 10-19-2019 Comprehensive metabolic 2000 panel - Serum or Plasma Gladis Kwan Work Phone: Start: 10-19-2019 INR in Platelet poor plasma by Coagulation assay Gladisjean-pierre Kwan Work Phone: Start: 10-18-2019 Glucose [Mass/volume] in Blood [facility] Work Phone: Start: 10-18-2019 CV IR PARACENTESIS Stefanie Mayer Work Phone: Start: 10-18-2019 Albumin [Mass/volume] in Body fluid Noe clayton Tere Grime Work Phone: Start: 10-18-2019 Cell count and differential, body fluid Katalina Chaseime Work Phone: Start: 10-18-2019 Culture bacterial any source anaerobic iso&id Katalina Jaimes Work Phone: Start: 10-18-2019 Glucose [Mass/volume] in Body fluid Noe non Tereshannon Jaimes Work Phone: Start: 10-18-2019 Lactate dehydrogenase [Enzymatic activity/volume] in Body fluid by Lactate to pyruvate reaction Katalina Jaimes Work Phone: Start: 10-18-2019 Microbial culture, body fluid Katalina Tijerina Work Phone: Start: 10-18-2019 Protein [Mass/volume] in Body fluid Noe Jaimes Work Phone: Start: 10-18-2019 Cytologic test Katalina Jaimes Work Phone: Start: 10-18-2019 Glucose [Mass/volume] [facility] Work Phone: Start: 10-18-2019 Alpha-fetoprotein serum Katalina la Work Phone: Start: 10-18-2019 MAGDA measurement Katalina Jaimes Work Phone: Start: 10-18-2019 Anti smooth muscle antibody IgA level Katalina Jaimes Work Phone: Start: 10-18-2019 Antimitochondrial antibody titer Katalina Jaimes Work Phone: Start: 10-18-2019 Bilirubin.direct [Mass/volume] in Serum or Plasma Gladis Kwan Work Phone: Start: 10-18-2019 Ceruloplasmin measurement Katalina Jaimes Work Phone: Start: 10-18-2019 Complete blood count (hemogram) panel - Blood by Automated count Gladis Kwan Work Phone: Start: 10-18-2019 Comprehensive metabolic 2000 panel - Serum or Plasma Gladis Kwan Work Phone: Start: 10-18-2019 Ferritin [Mass/volume] in Serum or Plasma Katalina Jaimes Work Phone: Start: 10-18-2019 Hepatitis A virus antibody, total measurement Katalina Jaimes Work Phone: Start: 10-18-2019 Hepatitis B core antibody measurement, IgM type Katailna Jaimes Work Phone: Start: 10-18-2019 Hepatitis B surface antibody measurement Katalina Jaimes Work Phone: Start: 10-18-2019 Hepatitis B surface antigen measurement Katalina Jaimes Work Phone: Start: 10-18-2019 Hepatitis C antibody measurement Katalina Jaimes Work Phone: Start: 10-18-2019 INR in Platelet poor plasma by Coagulation assay Gladis Kwan Work Phone: Start: 10-18-2019 Iron and Iron binding capacity panel - Serum or Plasma Katalina Jaimes Work Phone: Start: 10-18-2019 Magnesium [Mass/volume] in Serum or Plasma Adilene Calix Work Phone: Start: 10-18-2019 Peripheral blood smear interpretation Gladis Kwan Work Phone: Start: 10-18-2019 Serum A1 antitrypsin measurement Katalina Jaimes Work Phone: Start: 10-18-2019 Dup-scan xtr veins complete bilateral study Gladis Kwan Work Phone: Start: 10-18-2019 Echocardiography Gladis Kwan Work Phone: Start: 10-18-2019 US scan of upper abdomen Gladis Kwan Work Phone: Start: 10-17-2019 COVID-19, MOLECULAR Lesvia Genesis Salcido Work Phone: Start: 10-17-2019 CT angiography of pulmonary artery Scott Salcido Work Phone: Start: 10-17-2019 Radiologic exam chest single view Timothy Renner Work Phone: Start: 10-17-2019 Bacteria identified in Unspecified specimen by Aerobe culture Shruthi Renner Work Phone: Start: 10-17-2019 Urinalysis Shruthi Renner Work Phone: Start: 10-17-2019 Basic metabolic 2000 panel - Serum or Plasma Shruthi Sealsson Work Phone: Start: 10-17-2019 Complete blood count with white cell differential, automated Shruthi Nissa Sealsson Work Phone: Start: 10-17-2019 Complete blood count with white cell differential, manual Shruthi Nissaghassan Renner Work Phone: Start: 10-17-2019 Hemoglobin A1c/Hemoglobin.total in Blood Jalil Aragon Work Phone: Start: 10-17-2019 Hepatic function 2000 panel - Serum or Plasma Shruthi Renner Work Phone: Start: 10-17-2019 INR in Platelet poor plasma by Coagulation assay Shruthi Sealsson Work Phone: Start: 10-17-2019 LIGHT GREEN TOP Triage Protocol Emergency Start: 10-17-2019 Natriuretic peptide.B prohormone N-Terminal [Mass/volume] in Serum or Plasma Shruthi Sealsson Work Phone: Start: 10-17-2019 RAINBOW DRAW Triage Protocol Emergency Start: 10-17-2019 Troponin measurement Shruthi Sealsson Work Phone: Start: 10-17-2019 12 lead ECG Shruthi Sealsson Work Phone: Start: 10-17-2019 NASAL CANNULA OXYGEN Shruthi Squiresghassan Renner Work Phone: Start: 09-03-2019 Dup-scan xtr veins unilateral/limited study Tiffanie Hernandezeitan Work Phone: Start: 07-08-2019 Radex shoulder complete minimum 2 views Maryanne Fuentes Work Phone: Start: 06-28-2019 Radex humerus minimum 2 views Sandra bauer Work Phone: Start: 06-28-2019 Radex shoulder complete minimum 2 views Sandra Raya Work Phone: Start: 04-01-2019 POCT RACK URINE Sandra Raya Work Phone: Start: 01-21-2019 Adult depression screening assessment Sandra Raya Start: 01-09-2018 Mammography Anna White Centesis Rc mandel Work Phone: Esophagogastroduodenoscopy Keo Saravia Work Phone: Urine culture DO Marcelo clancy Work Phone: Plan of Treatment Date Care Activity Detail Author Start: 05-06-2024 Tetanus, diphtheria and acellular pertussis vaccination TDAP/TD ADULT [facility] Start: 07-11-2023 GFR test (Diabetes, CKD 3-4, OR last GFR 15-59) GFR test (Diabetes, CKD 3-4, OR last GFR 15-59) [facility] Start: 11-01-2022 Influenza vaccination Flu vaccine (Season Ended) [facility] Start: 08-08-2022 [facility] Start: 11-01-2021 [facility] Start: 10-26-2021 Administration of prophylactic treatment [facility] Start: 10-25-2021 Administration of prophylactic treatment [facility] Start: 10-25-2021 Hospital admission [facility] Start: 10-25-2021 Introduction of Remdesivir Anti-infective into Peripheral Vein, Percutaneous Approach, [employer] Introduction of Remdesivir Anti-infective into Peripheral Vein, Percutaneous Approach, [employer] [facility] Start: 10-25-2021 Reposition Left Upper Femur with Intramedullary Internal Fixation Device, Percutaneous Approach Reposition Left Upper Femur with Intramedullary Internal Fixation Device, Percutaneous Approach [facility] Start: 10-25-2021 Consultation [facility] Start: 10-25-2021 Hospital admission [facility] Start: 07-07-2021 Creatinine measurement Creatinine monitoring [email or web address] Phone: Start: 07-07-2021 Potassium monitoring Potassium monitoring [email or web address] Phone: Start: 06-23-2021 HbA1c (Bld) [Mass fraction] A1C test (Diabetic or Prediabetic) [email or web address] Phone: Start: 06-23-2021 Hemoglobin A1c measurement A1C test (Diabetic or Prediabetic) [facility] Start: 06-15-2021 Creatinine measurement Creatinine monitoring [email or web address] Phone: Start: 06-15-2021 Potassium monitoring Potassium monitoring [email or web address] Phone: Start: 02-02-2021 [facility] Start: 01-19-2021 [facility] Start: 01-11-2021 FUVHEPATOL, Provider: Jose Desai, Status: Pen, Time: 9:40 AM FUVHEPATOL, Provider: Jose Desai, Status: Pen, Time: 9:40 AM -Gastroenterology [facility] [address] [facility] Work Phone: Start: 12-02-2020 Influenza vaccination [email or web address] Phone: Start: 10-15-2020 COVID-19 Vaccine (3 - Booster for Moderna series) COVID-19 Vaccine (3 - Booster for Moderna series) [facility] Start: 07-08-2020 Glaucoma screening GLAUCOMA/EYE EXAM AGE 65+ [facility] [employer] [facility] [employer] Start: 06-16-2020 Annual Wellness Visit (AWV) Annual Wellness Visit (AWV) [facility] Start: 01-22-2020 Adult depression screening assessment DEPRESSION SCREENING [employer] Start: 01-10-2020 Screening mammography MAMMOGRAM [facility] Start: 01-08-2020 Adult depression screening assessment PHQ9 DEPRESSION SCRE[address] [facility] Start: 01-08-2020 Fall risk assessment FALL RISK [facility] Start: 01-08-2020 Pneumococcal polysaccharide vaccine (product) PNEUMONIA VACCINE (PCV13 PPSV23) (2 of 2 - PPSV23) [facility] Start: 12-03-2019 Influenza vaccination Flu vaccine (#1) [email or web address] Phone: Start: 12-03-2019 Influenza vaccination given [facility] Start: 09-24-2019 End: 09-24-2019 Office Visit 09/24/2019 Office Visit Orthopedic Surgery [facility] Start: 07-19-2019 Adult depression screening assessment PHQ9 DEPRESS[address] [facility] Start: 07-17-2019 End: 07-17-2019 Office Visit 07/17/2019 Office Visit Orthopedic Surgery [facility] Start: 03-04-2019 SHINGLES 2 DOSE (2 of 2) SHINGLES 2 DOSE (2 of 2) [facility] Start: 03-04-2019 SHINGLES VACCINE (2 of 2) SHINGLES VACCINE (2 of 2) [facility] Start: 01-21-2019 End: 01-21-2019 Office Visit 01/21/2019 Office Visit Family Medicine Anna White MD [address] [place] [address] [phone] [facility] Start: 01-20-2019 ANNUAL WELLNESS VISIT ANNUAL WELLNESS VISIT [facility] Start: 01-20-2019 WELLNESS ANNUAL VISIT WELLNESS ANNUAL VISIT [facility] Start: 12-02-2018 Influenza vaccination given INFLUENZA VACCINE (#1) [facility] Start: 2018 Pneumococcal 65+ years Vaccine (1 of 1 - PPSV23) Pneumococcal 65+ years Vaccine (1 of 1 - PPSV23) [email or web address] Phone: Start: 2018 Pneumococcal vaccination Pneumococcal Vaccine Age 65+ (1 of 2 - PCV13) [facility] Start: 03-13-2012 COLONOSCOPY 3YRS HIGH RISK COLONOSCOPY 3YRS HIGH RISK [facility] Start: 03-13-2012 Screening for malignant neoplasm of colon COLONOSCOPY HIGH RISK (3 YEAR) [facility] Start: 04-26-2010 Hepatitis A vaccine (3 of 3 - Hep A Twinrix risk 3-dose series) Hepatitis A vaccine (3 of 3 - Hep A Twinrix risk 3-dose series) [facility] Start: 03-26-2010 Hepatitis B vaccine (3 of 3 - Risk 3-dose series) Hepatitis B vaccine (3 of 3 - Risk 3-dose series) [facility] Start: 2008 Screening for osteoporosis DEXA (modify frequency per FRAX score) [facility] Start: 06-06-2003 Administration of herpes zoster vaccine Zoster Vaccines (1 of 2) [facility] Start: 06-06-2003 Screening for malignant neoplasm of breast Breast cancer screen [facility] Start: 06-06-2003 Screening for malignant neoplasm of colon [facility] Start: 06-06-2003 Shingles Vaccine (1 of 2) Shingles Vaccine (1 of 2) [facility] Start: 1998 Screening for malignant neoplasm of colon [facility] Start: 1972 DTaP/Tdap/Td vaccine (1 - Tdap) DTaP/Tdap/Td vaccine (1 - Tdap) [facility] Start: 06-06-1971 Diabetic microalbuminuria test Diabetic [facility]albuminuria test [facility] Phone: Start: 06-06-1971 Glaucoma screening Diabetic retinal exam [facility] Start: 06-06-1971 Hepatitis C antibody, confirmatory test Hepatitis C Screening [facility] Start: 06-06-1971 Hepatitis C screening Hepatitis C screen [facility] Start: 06-06-1971 Urine screening for protein Diabetic Alb to Cr ratio (uACR) test [facility] Start: 1969 COVID-19 Vaccine (1 of 2) COVID-19 Vaccine (1 of 2) [facility] Start: 1969 COVID-19 Vaccine (1) COVID-19 Vaccine (1) [email or web address] Phone: Start: 1965 Adolescent depression screening assessment Depression Screening (PHQ9) [facility] Start: 1965 COVID-19 Vaccine (1) COVID-19 Vaccine (1) [email or web address] Phone: Start: 1965 Depression Monitoring Depression Monitoring [employer] Start: 06-06-1963 Diabetic foot examination Diabetic foot exam [facility] [employer] Start: 06-06-1963 Diabetic retinal exam Diabetic retinal exam [email or web address] Phone: Start: 06-06-1963 HbA1c (Bld) [Mass fraction] A1C test (Diabetic or Prediabetic) [email or web address] Phone: Start: 06-06-1963 Lipid panel [facility] [employer] Start: 06-06-1959 Pneumococcal 65+ years Vaccine (1 - PCV) Pneumococcal 65+ years Vaccine (1 - PCV) [facility] [employer] Start: 1956 History and physical examination, annual for health maintenance Wellness Visit [facility] Start: 1954 Hepatitis A vaccine (1 of 2 - Risk 2-dose series) Hepatitis A vaccine (1 of 2 - Risk 2-dose series) [email or web address] Phone: Start: 1953 Fall risk assessment Falls Risk Assessment [facility] Start: 1953 Hepatitis C screening Hepatitis C screen [email or web address] Phone: Start: 1953 Screening for malignant neoplasm of colon Colorectal Cancer Screening: Colonoscopy [facility] Start: 1953 Screening for osteoporosis Dexa Scan [facility] Start: 1953 Screening mammography Mammogram [facility] Start: 1953 Tetanus vaccination Tetanus: Every 10yrs [facility] Blood chemistry [facility] CBC Auto Differential CBC Auto D ifferential Lab STAT Daily until discontinued starting 07/07/2020, 1 completed [email or web address] Phone: Comment on above: Daily until discontinued starting 2020, 1 completed End: 07-19-2022 CBC W Auto Differential panel - Blood CBC auto differential Lab Routine Tomorrow AM for 9 Occurrences starting 07/11/2022 until 07/19/2022, 1 completed [employer] Phone: Comment on above: Tomorrow AM for 9 Occurrences starting 0 07/11/2022 until 07/19/2022, 1 completed Comprehensive metabo lic 2000 panel - Serum or Plasma [facility] Comprehensive metabo lic 1999 panel - Serum or Plasma [facility] Comprehensive metabo lic 1999 panel - Serum or Plasma [facility] Comprehensive Metabo lic Panel w/ Reflex to MG Comprehensive Metabolic Panel w/ Reflex to MG Lab Routine Daily until discontinued starting 07/07/2020, 1 completed [email or web address] Phone: Comment on above: Daily until discontinued starting 2020, 1 completed Culture, Blood 1 [employer] Work Phone: End: 06-18-2020 Culture, Urine Culture, Urine Microbiology Routine Once for 1 Occurrences starting 06/18/2020 until 06/18/2020 [email or web address] Phone: Comment on above: Once for 1 Occurrences starting 06/19/19 21 until 06/18/2020 Erythropoietin (EPO) [Units/volume] in Serum or Plasma [facility] Erythropoietin (EPO) [Units/volume] in Serum or Plasma [facility] Ferritin [Mass/volum e] in Serum or Plasma [facility] Ferritin [Mass/volum e] in Serum or Plasma [facility] Ferritin [Mass/volum e] in Serum or Plasma [facility] Glucose [Mass/volume ] in Serum or Plasma [employer] Phone: Comment on above: 4X Daily (AC & HS) until discontinued st arting 07/10/2022 As Needed until disc ontinued starting 07/10/2022 Haptoglobin [Mass/vo lume] in Serum or Plasma [facility] Haptoglobin [Mass/vo lume] in Serum or Plasma [facility] Hepatic function panel [facility] Iron [Mass/volume] i n Serum or Plasma [facility] Oxygen therapy [Mini mum Data Set] Initiate Oxygen Therapy Protocol Respiratory Care Routine Daily until discontinued starting 07/04/2020 [email or web address] Phone: Comment on above: Daily until discontinued starting 2020 Oxygen therapy [Mini mum Data Set] Initiate Oxygen Therapy Protocol Respiratory Care Routine As Needed until discontinued starting 07/10/2022 [employer] Phone: Comment on above: As Needed until discontinued starting Patient referral [facility] Work Phone: POCT glucose POCT glucose Poi nt of Care Testing Routine 4X Daily (AC & HS) until discontinued starting 07/05/2020 [email or web address] Work Phone: Comment on above: 4X Daily (AC & HS) until discontinued st arting 07/05/2020 Transferrin measurement [facility] End: 04-01-2019 Urine culture and sensitivity Urine culture and sensitivity Microbiology Routine Urinary frequency Burning with urination Incontinence Recurrent UTI 1 Occurrences starting 04/01/2019 until 04/01/2019 [facility] [employer] [facility] Comment on above: 1 Occurrences starting 04/01/2019 until 04/01/2019 Urine culture and sensitivity [facility] [facility] End: 01-21-2019 Urine culture and sensitivity Urine culture and sensitivity Microbiology Routine Urinary frequency 1 Occurrences starting 01/21/2019 until 01/21/2019 [employer] Comment on above: 1 Occurrences starting 01/21/2019 until 01/21/2019 End: 01-21-2019 XR Hand LT Min 3 View (Routine) XR Hand LT Min 3 View (Routine) Imaging Routine Contusion of left hand, subsequent encounter 1 Occurrences starting 01/21/2019 until 01/21/[address] [facility] Comment on above: 1 Occurrences starting 01/21/2019 until 01/21/2019 XR Hand LT Min 3 Vie w (Routine) XR Hand LT Min 3 View (Routine) Imaging Routine Contusion of left hand, subsequent encounter 01/21/2019 1:13 PM EDT [facility] XR Hip - left 2 Views [facility] Work Phone: XR Hip - left 2 Views [facility] End: 01-07-2019 XR Lumbar Spine 2 or 3 Views XR Lumbar Spine 2 or 3 Views Imaging Routine History of recent fall 1 Occurrences starting 01/07/2019 until 01/07/2019 [employer] Comment on above: 1 Occurrences starting 01/07/2019 until 01/07/2019 XR Lumbar Spine 2 or 3 Views XR Lumbar Spine 2 or 3 Views Imaging Routine History of recent fall 01/07/2019 12:46 PM EDT [facility] [facility] End: 01-21-2019 XR Pelvis 1 or 2 View XR Pelvis 1 or 2 View Imaging Routine Pain of right hip joint 1 Occurrences starting 01/21/2019 until 01/21/[address] [facility] Comment on above: 1 Occurrences starting 01/21/2019 until 01/21/2019 XR Pelvis 1 or 2 View XR Pelvis 1 or 2 View Imaging Routine Pain of right hip joint 01/21/2019 1:13 PM EDT [facility] Immunizations Immunization Date Immunization Notes Care Provider Fa cility 08-20-2020 COVID-19 Vaccine Moderna - Documentation Purposes Only [facility] 07-17-2020 COVID-19 Vaccine Moderna - Documentation Purposes Only [facility] 01-09-2020 influenza virus vaccine, unspecified formulation; Translations: [Flu Vacc [id number](6mos Up)/Pf] [facility] Work Phone: 01-19-2018 influenza, seasonal, injectable [facility] 01-19-2018 influenza virus vaccine, unspecified formulation [facility] 11-24-2009 hepatitis A and hepatitis B vaccine [facility] [employer] 07-28-2009 hepatitis B vaccine, pediatric or pediatric/adolescent dosage [facility] [employer] Work Phone: 02-24-2009 hepatitis A and hepatitis B vaccine [facility] [employer] Payers Date Payer Category Payer Medicare [id number] 2019 Medicare UHC MANAGED MEDI CARE [facility] DUAL COMPLETE [place] [place] [id number] 2019-Present [id number] 2018 Medicare xxxxxxxxx [id number] 2018 Medicaid [id number] 2018 Medicare [facility] COMM PLAN:HM O-POS-SNP [facility] DUAL COMPLETE COMM PLAN:HMO-POS-SNP (MEDICARE ADV) xxxxxxxxxxx 2018-Present Medicare xxxxxxxxxxx [id number] 2018 Medicare [id number] 1959 Medicaid [id number] 1959 Medicare [id number] 1959 Self-pay [id number] 1953 Unknown [id number] [id number] 1953 Unknown [id number] 2.16.840.1.251582.3.579.2.9 00 1953 Unknown [id number] 2.16.840.1.144974.3.579.2.9 1953 Unknown [id number] 2.16.840.1.661102.3.579.2.5 1953 Unknown [id number] 2..840.1.949072.3.579.2.5 1953 Unknown [id number] 2.16.840.1.635026.3.579.2.5 1953 Unknown [id number] 2.16.840.1.902095.3.579.2.5 1953 Unknown [id number] 2.16.840.1.489918.3.579.2.5 1953 Unknown [id number] 2.16.840.1.758245.3.579.2.5 1953 Unknown [id number] 2.16.840.1.152931.3.579.2.5 93 1953 Unknown [id number] 2.16.840.1.486084.3.579.2.5 1953 Unknown [id number] 2.16.840.1.269630.3.579.2.5 93 1953 Unknown [id number] 2.16.840.1.181807.3.579.2.5 93 1953 Unknown [id number] 2.16.840.1.181073.3.579.2.5 93 1953 Unknown [id number] 2.16.840.1.126333.3.579.2.5 1953 Unknown [id number] 2.16.840.1.017901.3.579.2.5 1953 Unknown [id number] 2.16.840.1.678422.3.579.2.5 1953 Unknown [id number] 2.16.840.1.497064.3.579.2.5 93 1953 Unknown [id number] 2.16.840.1.682969.3.579.2.5 1953 Unknown [id number] 2.16.840.1.449640.3.579.2.1 73 Medicaid Medicaid [id number] Unknown Unknown [id number] 2.16.840.1.432430.19 Unknown [id number] 2.16.840.1.652118.3.579.2.5 31 Unknown [id number] 2.16.840.1.644055.3.579.2.5 31 Unknown [id number] 2.16.840.1.464256.3.579.2.5 31 Unknown [id number] 2.16.840.1.807027.3.579.2.5 31 Social History Date Type Detail Facility Start: 01-21-2019 End: 07-10-2022 Tobacco smoking status NHIS Current every day smoker [facility] [place] History of tobacco use Cigarette Smoker [facility] Start: 01-21-2019 End: 07-10-2022 Cigarettes smoked current (pack per day) - Reported [facility] Start: 01-21-2019 End: 02-13-2019 Alcohol intake Current non-drinker of alcohol (finding) [facility] Start: 09-14-2018 Tobacco Comment Currently 1/4 ppd [facility] Start: 1955 Sex Assigned At Not on file [facility] Start: 10-17-2019 End: 07-10-2022 Alcohol intake Current drinker of alcohol (finding) [facility] Start: 10-17-2019 Alcohol Comment occasionally [facility] Start: 06-30-2022 End: 07-10-2022 Exposure to SARS-CoV-2 (event) Not sure [facility] Start: 1955 Sex Assigned At Female [facility] Start: 10-24-2019 End: 07-10-2022 Tobacco use and exposure Never used [facility] Start: 05-19-2020 End: 10-25-2021 Tobacco smoking status [facility] Unknown if ever smoked [facility] Start: 01-07-2019 Alcohol intake No [facility] Start: 07-05-2020 [facility] [email or web address] Phone: Start: 01-14-2022 End: 08-08-2022 Tobacco smoking status NHIS Smoker (finding) [facility] Start: 07-10-2022 Alcohol Comment Very rarely [facility] [employer] Phone: Medical Equipment Procedure Code Equipment Code Equipment Origin al Text Equipment Identifier Dates Orthopaedic bone screw, non-bioabsorbable, non-sterile ()[id number] FDA Start: 10-25-2021 Femur nail, sterile (9 [id number] FDA Start: 10-25-2021 Spiral blade [id number] FDA Start: 10-25-2021 Goals Date Patient Goal Desired Activity /State Functional Status Date Assessment Result Facility 11-01-2021 Functional status Patient Not at [facility] Work Phone: Mental Status Date Assessment Result Facility 11-01-2021 Cognitive function Cognitive Sta tus Patient at Baseline [facility] Work Phone: Clinical Notes 10-20-2018 to 02-08-2023 Kristy Dumont RN - 07/11/2022 9:55 PM EDTMaris Trevizo RN - 07/11/2022 9:26 PM EDCooper Ash MD - 07/11/2022 5:38 PM LEÓN Lora - 07/11/2022 3:11 PM EDT Note Date & Type Note Facility 02-08-2023 Note Cardiovascular Medic [facility] SUBJECTIVE Chief Complaint Patient presents with ECHO follow-up Congestive Heart Failure Hetal Jasso is a 67 y.o. female here for follow-up after her recent ECHO. HPI PMHx: hypotension, HFpEF (possible hx of HFrEF as she notes having a prior cardiac cath at 18/17 years old for abnormal heart function), RV failure, PVCs, COPD, DM type II, liver cirrhosis She denies any changes since last seen. BP at home running 90/60. She takes midodrine PRN for low BP. She just got over COVID a few weeks ago. She has been having some COTTON since then but she feels like it is getting better. She has intermittent leg swelling, typically gets worse at night and then gets better by the AM. She c/o ongoing neck pain - pain is constant. Denies CP, dyspnea at rest, orthopnea, PND, dizziness/LH, palpitations, syncope. She is residing at [facility] in [facility]. Priya helps with her care. Patient Active Problem List Diagnosis Abnormal laboratory test result Abnormal mammogram Acquired coagulation factor deficiency (CMS/HCC) Acute cystitis without hematuria Alcohol dependence in remission (CMS/HCC) Alcoholic cirrhosis of liver with ascites (CMS/HCC) Chronic obstructive pulmonary disease (CMS/HCC) Chronic systolic heart failure (CMS/HCC) Closed fracture of right proximal humerus Closed fracture of left femur with routine healing Cirrhosis of liver (CMS/HCC) Constipation Difficulty walking Disorder involving thrombocytopenia (CMS/HCC) Fracture of distal end of tibia Febrile illness Encephalopathy acute 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) Hepatic encephalopathy (CMS/HCC) Insomnia Major depression Moderate malnutrition (CMS/HCC) Moderate single current episode of major depressive disorder (CMS/HCC) Multifactorial gait disorder Muscle weakness (generalized) Nondependent alcohol abuse, in remission Osteopenia with high risk of fracture Pedal edema Palpitation Other pancytopenia (CMS/HCC) Portal hypertension (CMS/HCC) Primary hemochromatosis (CMS/HCC) PVC's (premature ventricular contractions) Right heart failure, unspecified (CMS/HCC) Type 2 diabetes mellitus with hyperglycemia (CMS/HCC) Tibial plateau fracture, left, closed, initial encounter Type 2 diabetes mellitus without complication, with long-term current use of insulin (CMS/HCC) Urinary tract infection without hematuria Weakness Past Medical History: Diagnosis Date CHF (congestive heart failure) (CMS/HCC) Hypokalemia Hypotension Family History Problem Relation Name Age of Onset Heart attack Brother Heart attack Maternal Grandfather Social History Tobacco Use Smoking status: Every Day Packs/day: 0.50 Types: Cigarettes Smokeless tobacco: Never Substance Use Topics Alcohol use: Not Currently No Known Allergies Review of Systems Constitutional: Negative for chills, decreased appetite, fever, malaise/fatigue and weight gain. Cardiovascular: Positive for dyspnea on exertion and leg swelling. Negative for chest pain, irregular heartbeat, near-syncope, orthopnea, palpitations, paroxysmal nocturnal dyspnea and syncope. Hematologic/Lymphatic: Negative for bleeding problem. Does not bruise/bleed easily. OBJECTIVE Visit Vitals BP 95/64 (BP Location: Left arm, Patient Position: Sitting) Pulse 85 Ht 1.651 m (5' 5 ) Wt 46.3 kg (102 lb) SpO2 94% BMI 16.97 kg/m??? Smoking Status Every Day BSA 1.46 m??? Medications: Current Outpatient Medications: albuterol 90 mcg/actuation inhaler, , Disp: , Rfl: celecoxib (CeleBREX) 100 mg capsule, if needed., Disp: , Rfl: Farxiga 10 mg, Take 10 mg by mouth once daily as directed., Disp: , Rfl: HumaLOG U-100 Insulin 100 unit/mL injection, , Disp: , Rfl: Lantus Solostar U-100 Insulin 100 unit/mL (3 mL) pen, , Disp: , Rfl: magnesium oxide (Mag-Ox) 400 mg (241.3 mg magnesium) tablet, Take 1 tablet by mouth in the morning., Disp: , Rfl: metFORMIN (Glucophage) 500 mg tablet, Take 1 tablet by mouth with breakfast., Disp: , Rfl: midodrine (Proamatine) 5 mg tablet, Take 5 mg by mouth 2 times daily., Disp: , Rfl: mirtazapine (Remeron) 30 mg tablet, , Disp: , Rfl: potassium chloride CR (Klor-Con M20) 20 mEq ER tablet, Take 0.5 tablets by mouth in the morning., Disp: , Rfl: Trulicity 4.5 mg/0.5 mL pen injector, , Disp: , Rfl: Xifaxan 550 mg tablet, , Disp: , Rfl: HYDROcodone-acetaminophen (Manning) 5-325 mg tablet, , Disp: , Rfl: lactulose 10 gram/15 mL solution, Take 20 g by mouth., Disp: , Rfl: melatonin 3 mg tablet, Take 1 tablet by mouth at bedtime., Disp: , Rfl: spironolactone (Aldactone) 25 mg tablet, Take 0.5 tablets (12.5 mg) by mouth in the morning., Disp: 15 tablet, Rfl: 11 Physical Exam Vitals reviewed. Constitutional: Appearance: Normal appearance. She is normal weight. HENT: Head: Normocephalic and atraumatic. Right Ear: External ear normal. L (more content not included)... [facility] 02-08-2023 Note Patient here for 2 m o follow up hypotension and echo last week. Says BP still runs low but she denies lightheadedness/syncope. Denies chest pain, SOB, and palpitations. Review of Systems Cardiovascular: Positive for leg swelling (LLE s/p fracture). Musculoskeletal: Positive for muscle weakness. Neurological: Positive for weakness. All other systems reviewed and are negative. [facility] 12-14-2022 Note New patient here to establish care for hypotension. Says she had a heart cath at the age of 16, and again when she was 17. She states she was told her left ventricle wasn't pumping the old blood out . Denies echo in the last 40+ years, or any other cardiac testing. She also denies lightheadedness, chest pain, and palpitations. Smokes 1/2 PPD. [facility] 12-14-2022 Note Cardiology Clinic No te Chief Complaint: New patient for hypotension HPI: Hetal aJsso is a 67 y.o. female who was referred to cardiology for hypotension. Patient adamantly denies any cardiac complaints or concerns. She denies any chest pain or shortness of breath. She denies any dizziness or lightheadedness. She denies any lower extreme edema, orthopnea, or paroxysmal nocturnal dyspnea. She states that she was noted to be hypotensive at the facility where she is at on routine vital check. Patient states that she had a heart catheterization performed when she was 16 or 17 years old due to her heart not pumping the way it should. She states that nothing was found on her heart catheterization. Cardiology ROS: GENERAL: Denies fever, chills, night sweats, weight loss. HEENT: Denies changes in vision, photophobia, changes in hearing, epistaxis, oral bleeding. CARDIOVASCULAR: Denies chest pain, exertional dyspnea, orthopnea/PND, lower extremity edema, palpitations, lightheadedness/dizziness. RESPIRATORY: Denies SOB, coughing, wheezing GI: Denies abdominal pain, nausea/vomiting, heartburn, melena/hematochezia. RENAL: Denies dysuria, hematuria, flank pain. MSK: Denies muscle weakness/pain, arthralgias/joint pain. NEUROLOGIC: Denies LOC, weakness, numbness, headaches. SKIN: Denies abnormal rashes or bleeding. PSYCH: Denies significant anxiety, depression, sleep disturbances. Past Medical History She has a past medical history of Hypokalemia and Hypotension. Surgical History She has a past surgical history that includes Hip surgery. Social History She reports that she has been smoking cigarettes. She has been smoking an average of .5 packs per day. She has never used smokeless tobacco. She reports that she does not currently use alcohol. No history on file for drug use. Family History Family History Problem Relation Name Age of Onset Heart attack Brother Heart attack Maternal Grandfather Medications Current Outpatient Medications on File Prior to Visit Medication Sig Dispense Refill albuterol 90 mcg/actuation inhaler celecoxib (CeleBREX) 100 mg capsule Farxiga 10 mg Take 10 mg by mouth once daily as directed. HumaLOG U-100 Insulin 100 unit/mL injection HYDROcodone-acetaminophen (Manning) 5-325 mg tablet lactulose 10 gram/15 mL solution Take 20 g by mouth. Lantus Solostar U-100 Insulin 100 unit/mL (3 mL) pen magnesium oxide (Mag-Ox) 400 mg (241.3 mg magnesium) tablet Take 1 tablet by mouth in the morning. melatonin 3 mg tablet Take 1 tablet by mouth at bedtime. metFORMIN (Glucophage) 500 mg tablet Take 1 tablet by mouth with breakfast. midodrine (Proamatine) 5 mg tablet Take 5 mg by mouth 2 times daily. mirtazapine (Remeron) 30 mg tablet potassium chloride CR (Klor-Con M20) 20 mEq ER tablet 1.5 tablets 1 (one) time each day at the same time. Trulicity 4.5 mg/0.5 mL pen injector Xifaxan 550 mg tablet No current facility-administered medications on file prior to visit. Allergies Patient has no known allergies. Physical Exam VITAL SIGNS: BP 94/56 (BP Location: Left arm, Patient Position: Sitting) Pulse 75 Ht 1.651 m (5' 5 ) Wt 48.1 kg (106 lb) SpO2 96% BMI 17.64 kg/m??? Constitutional: Well developed, Well nourished, No acute distress, Non-toxic appearance. HENT: Normocephalic, Atraumatic, Bilateral external ears have normal appearance, Nose appears normal, nares are patent. Eyes: PERRLA, EOMI, Conjunctiva normal, No discharge. Neck: Normal range of motion, No tenderness, Supple, No stridor. No cervical lymphadenopathy noted. Cardiovascular: Normal heart rate, Normal rhythm, No murmurs, No rubs, No gallops. Thorax & Lungs: Normal breath sounds, No respiratory distress, No wheezing, No chest tenderness to palpation. Abdomen: Bowel sounds normal, Soft, Nontender, No masses, No pulsatile masses. Skin: Warm, Dry, No erythema, No rash. Back: No tenderness, No CVA tenderness. Extremities: Intact distal pulses, No edema, No tenderness, No cyanosis, No clubbing. Musculoskeletal: Grossly normal strength in extremities Neurologic: Alert & oriented x 3, no gross focal neurological deficits Psychiatric: Affect normal, Judgment normal, Mood normal. Impression: -Hypotension, asymptomatic -possible HFrEF, unclear history Plan: -Patient is currently asymptomatic from a hypertensive standpoint. She denies any dizziness or lightheadedness. I advised patient to avoid blood pressure medications at the present time, and to monitor for symptoms. She is to maintain a daily blood pressure log. -We will obtain echocardiogram to assess LVEF, wall motion, and valvular function. Per patient's narrative, she may have been diagnosed with heart failure previously. We are unable to add any medications at the present time given hypotension. Will reconsider pending further evaluation. -Optimize medical management -Aggressive risk factor modification -P (more content not included)... [facility] 07-11-2022 History of Present illness Narrative Attempted to call report to [facility]. No answer. Call to dirt supervisor Cecille. Connected with Primary Nurse Maris. Patient d/c from floor at this time via stretcher with [facility]. All belongings and medications were sent with patient. IV was removed and pt was changed d/t incontinence prior to leaving. General Road Supervisor attempted to call report to [facility], was transferred and the phone just continued to ring. General [address] Supervisor called back and left a message with Claudia and gave her my call back number and told her to call me with any questions or concerns. Physician Progress Note PATIENT: HETAL JASSO CSN #: [id number] : 1955 ADMIT DATE: 07/10/2022 11:21 AM DISCH DATE: RESPONDING PROVIDER #: Joe Ash MD QUERY TEXT: Pt admitted with left tibial plateau fracture. Pt fell while reaching for walker and landed on left knee. CT left knee showed severe osteopenia/osteoporosis If possible, please document in progress notes and discharge summary if you are evaluating and/or treating any of the following: The medical record reflects the following: Risk Factors: 67 y/o female, moderate malnutrition, BMI 17.8, hx left hip fracture about 6 months ago Clinical Indicators: ?fall while reaching for walker, landed on her left knee; CT left knee: Underlying severe osteopenia/osteoporosis, Mildly depressed anterolateral tibial plateau fracture Treatment: Ortho consult, NWB, immobilizer brace, PT Nat Sultana, MSN, RN, CCDS, CRCR Clinical Crusher Setter [phone] . Options provided: -- Pathological left tibial plateau fracture due to osteopenia following fall which would not usually break a normal, healthy bone -- Osteoporotic left tibial plateau fracture following fall which would not usually break a normal, healthy bone -- Traumatic left tibial plateau fracture -- Other - I will add my own diagnosis -- Disagree - Not applicable / Not valid -- Disagree - Clinically unable to determine / Unknown -- Refer to Clinical Documentation Reviewer PROVIDER RESPONSE TEXT: This patient has a traumatic left tibial plateau fracture. Query created by: Nat Sultana on 07/11/2022 3:40 PM Electronically signed by: Joe Ash MD 07/11/2022 5:37 PM Patient discharged back to [facility] today. Patient and facility aware anf agreeable with this plan. Spoke with account executive sales representativeDenisha and FAXED discharge paperwork to [facility]. [facility] coordinated, per facility request. ETA is 6:30 p.m. LEÓN Nelson 07/11/2022 Physical Therapy Facility/Department: [facility] Daily Treatment Note NAME: Hetal Jasso : 1955 Date of Service: 07/11/2022 Discharge Recommendations: Continue to assess pending progress, Subacute/Alf Facility, IP Rehab Patient Diagnosis(es): The encounter diagnosis was Closed fracture of left tibial plateau, initial encounter. Assessment Assessment: Transfers:Mod A x1. Bed mobility:Min/Mod A x1. Supine exercises B LE x15, L LE ankle pumps, SLR with AAROM, and hip abd., Activity Tolerance: Patient tolerated evaluation without incident;Patient limited by pain Equipment Needed: No Plan Physcial Therapy Plan General Plan: 2 times a day 7 days a week Current Treatment Recommendations: Strengthening;ROM;Balance training;Functional mobility training;Transfer training;Endurance training;Gait training;Stair training;Neuromuscular re-education;Pain management;Home exercise program;Safety education & training;Modalities;Positioning; Therapeutic activities Restrictions Restrictions/Precautions Restrictions/Precautions: Weight Bearing, Fall Risk, General Precautions Required Braces or Orthoses?: Yes Lower Extremity Weight Bearing Restrictions Left Lower Extremity Weight Bearing: Non Weight Bearing Required Braces or Orthoses Left Lower Extremity Brace: Knee Brace Subjective Subjective Subjective: Pt. up in chair upon arrival, agreeable to therapy at this time and wanting to get back to bed. Pain: 8/10 in L knee Orientation Overall Orientation Status: Within Functional Limits Cognition Overall Cognitive Status: WFL Objective Bed Mobility Training Bed Mobility Training: Yes Overall Level of Assistance: Minimum assistance;Moderate assistance;Assist X1 Interventions: Verbal cues Rolling: Minimum assistance;Assist X1 Sit to Supine: Minimum assistance;Moderate assistance;Assist X1 Scooting: Minimum assistance;Moderate assistance;Assist X1 Balance Sitting: Intact Standing: Impaired Standing - Static: Fair Standing - Dynamic: Fair;Poor Transfer Training Transfer Training: Yes Overall Level of Assistance: Moderate assistance;Assist X1 Interventions: Verbal cues Sit to Stand: Moderate assistance;Assist X1 Stand to Sit: Moderate assistance;Assist X1 Stand Pivot Transfers: Moderate assistance;Assist X1 Gait Training Gait Training: No PT Exercises Exercise Treatment: Reclined exercises B LE x15 L LE SLR with AAROM, ankle pumps and hip abd., d/t havign immobilizer on. Safety Devices Type of Devices: All fall risk precautions in place;Call light within reach;Nurse notified;Left in bed;Bed alarm in place Goals Short Term Goals Time Frame for Short Term Goals: 20 days Short Term Goal 1: Pt to be SUP with bed mobility to improve functional independence Short Term Goal 2: Pt to be CGA/Luis with RW for transfers to improve functional mobility Short Term Goal 3: Pt to be able to tolerate 20-30 mins therex/act to improve functional capacity Patient Goals Patient Goals : to get better Education Patient Education Education Given To: Patient Education Provided: Role of Therapy;Plan of Care Education Method: Verbal Education Outcome: Verbalized understanding Therapy Time Individual Concurrent Group Co-treatment Time In 1330 Time Out 1356 Minutes 26 Mei Felipe PTA Occupational Therapy Facility/Department: [facility] Occupational Therapy Initial Assessment Name: Hetal Jasso : 1955 Date of Service: 07/11/2022 Discharge Recommendations: Continue to assess pending progress, Subacute/Alf Facility Patient Diagnosis(es): The encounter diagnosis was Closed fracture of left tibial plateau, initial encounter. Past Medical History: has a past medical history of Acquired coagulation factor deficiency (HCC), Alcohol dependence in remission (HCC), Alcoholic cirrhosis of liver with ascites (HCC), Chronic obstructive pulmonary disease (HCC), Constipation, Diabetes mellitus (HCC), Difficulty walking, Insomnia, Major depression, Other pancytopenia (HCC), Portal hypertension (HCC), Right heart failure, unspecified (HCC), Thrombocytopenia, unspecified (HCC), and Weakness. Past Surgical History: has no past surgical history on file. Treatment Diagnosis: Weakness Assessment Performance deficits / Impairments: Decreased functional mobility ;Decreased endurance;Decreased ADL status;Decreased balance;Decreased strength;Decreased posture Assessment: 67 y/o F admitted to T following fall with L tibial plateau fx. Patient with previous L hip fx. Patient currently NWB with knee immobilizer. Patient requires extensive assist during ADL and transfers. Patient would benefit from OT services to address to ensure safe and indep return to [facility]. Treatment Diagnosis: Weakness Prognosis: Good;Fair Decision Making: Medium Complexity REQUIRES OT FOLLOW-UP: Yes Plan Occupational Therapy Plan Times Per Day: Once a day Days Per Week: 7 Days Current Treatment Recommendations: Strengthening, Balance training, Functional mobility training, Endurance training, Safety education & training, Patient/Caregiver education & training, Equipment evaluation, education, & procurement, Self-Care / ADL Restrictions Restrictions/Precautions Restrictions/Precautions: Weight Bearing, Fall Risk, General Precautions Required Braces or Orthoses?: Yes Lower Extremity Weight Bearing Restrictions Left Lower Extremity Weight Bearing: Non Weight Bearing Required Braces or Orthoses Left Lower Extremity Brace: Knee Brace Subjective General Patient assessed for rehabilitation services?: Yes Subjective Subjective: Patient states pain only with movement. Patient agreeable to OT evaluation. Social/Functional History Social/Functional History Type of Home: Assisted living Home Layout: One level Home Access: Level entry Bathroom Shower/Tub: Walk-in shower Bathroom Toilet: Handicap height Bathroom Accessibility: Accessible Home Equipment: Walker, rolling Has the patient had two or more falls in the past year or any fall with injury in the past year?: Yes Receives Help From: service station attendant ADL Assistance: Needs assistance Homemaking Assistance: Needs assistance Ambulation Assistance: Needs assistance Transfer Assistance: Needs assistance Additional Comments: Patient states that she now lives in [facility] d/t fall previous year with hip fx. Paitent states she does most self care on her own; patient states that she was almost to the point of walking on her own. Objective Heart Rate: 87 Heart Rate Source: Monitor;Apical BP: 130/72 BP Location: Right upper arm BP Method: Automatic Patient Position: Semi fowlers MAP (Calculated): 91 Resp: 18 SpO2: 93 % O2 Device: None (Room air) Safety Devices Type of Devices: All fall risk precautions in place;Call light within reach;Chair alarm in place;Left in chair;Nurse notified Balance Sitting: Intact Standing: Impaired Standing - Static: Fair Standing - Dynamic: Fair;Poor AROM: Within functional limits PROM: Within functional limits Strength: Generally decreased, functional Coordination: Generally decreased, functional Tone: Normal Sensation: Intact ADL Feeding: Independent Grooming: Stand by assistance Grooming Skilled Clinical Factors: seated UE Bathing: Minimal assistance LE Bathing: Maximum assistance UE Dressing: Stand by assistance LE Dressing: Maximum assistance Toileting: Maximum assistance Toileting Skilled Clinical Factors: Max A with bridging for brief change while supine in bed. Transfers Stand Step Transfers: Moderate assistance;2 Person assistance;Minimal assistance Stand Pivot Transfers: Minimal assistance;Moderate assistance;2 Person assistance Sit to stand: Moderate assistance;Minimal assistance Stand to sit: Minimal assistance;Moderate assistance Vision Vision: Within Functional Limits Hearing Hearing: Within functional limits Cognition Overall Cognitive Status: WFL Orientation Overall Orientation Status: Within Functional Limits Education Given To: Patient Education Provided: Role of Therapy;Plan of Care;ADL Adaptive Strategies;Transfer Training Education Method: Verbal Barriers to Learning: None Education Outcome: Verbalized understanding;Demonstrated understanding;Continued education needed AM-PAC Score AM-PAC Inpatient Daily Activity Raw Score: 16 (07/11/221018) AM-PAC Inpatient ADL T-Scale Score : 35.96 (07/11/221018) ADL Inpatient CMS 0-100% Score: 53.32 (07/11/221018) ADL Inpatient CMS G-Code Modifier : CK (07/11/221018) Goals Short Term Goals Time Frame for Short Term Goals: 21 visits Short Term Goal 1: Patient to be educated on d/c folder, AE/DME and basic home safety to ensure safe and indep return to [facility]. Short Term Goal 2: Patient to engage in 15 minutes of ther ex/ther act to improve strength and activity tolerance for ADL and transfers. Short Term Goal 3: Patient to complete LB bathing/dressing with use of AE/DME as needed with min A to ensure safe and indep return home. Short Term Goal 4: Patient to engage in UB self care with s/u while seated. Therapy Time Individual Concurrent Group Co-treatment Time In 928 Time Out 1000 Minutes 31 MARIO Dhillon/Keo Met with Patient this a.m. to discuss discharge planning. Patient is a 67 year old white female, admitted with a diagnosis of Closed Fracture of Left Tibial Plateau following a fall. Patient is alert and oriented, polite and cooperative with this assessment. States that she has lived at [facility] for two weeks and plans to return there following this hospitalization. Patient resides at [facility] in [place]. She uses a walker and a wheelchair for assistance as she needs to. Patient receives assistance with her medications and ADL's. Involved and supportive family noted by Patient. No PCP noted for Patient. Patient has medical insurance and does not report any difficulties with regards to affording her prescription medications at this point. Discharge plan will be for Patient to return to [facility]. Telephone voicemail message left for [facility] this a.m. to inquire if pre certification will be required. Patient is a 'Full Code' status and does not wish to pursue Advanced Directives at this time. Designates her sister,Fredy, as her decision maker if needed. QUALITY PROCESS LEAD to assist with discharge planning as appropriate. LEÓN Nelson 07/11/2022 Comprehensive Nutrition Assessment Type and Reason for Visit: Initial Nutrition Recommendations/Plan: Continue current diet. Start 4 oz Neri ensure clear TID with meals. Recommend to obtain a vitamin D level. Recommend to consider a calcium supplement due to Fx. Encouraged protein and calcium foods for healing needs. Malnutrition Assessment: Malnutrition Status: Moderate malnutrition (07/11/22 0959) Context: Acute Illness Findings of the 6 clinical characteristics of malnutrition: Energy Intake: Unable to assess Weight Loss: Unable to assess Body Fat Loss: Mild body fat loss Orbital, Fat Overlying Ribs Muscle Mass Loss: Mild muscle mass loss Temples (temporalis), Clavicles (pectoralis & deltoids) Fluid Accumulation: No significant fluid accumulation Structural Designer Strength: Not Performed Nutrition Assessment: Moderate malnutrition r/t inadequate oral intakes aeb PO 26-50% of meals, mild fat/muscle losses. Increased nutrient needs r/t acute injury/trauma aeb healing needs from L Tibia Fx. Non surgical plan. Altered nutrition related labs r/t endocrine dysfunction aeb A1c 6.7. No vitamin D level noted, recommend to obtain vitamin D level. Ammonia 62. Pt c/o pain and did not want to visit, but did state she prefers the ensure clear, likes the neri. Pt encouraged to eat protein and calcium containing foods to aid healing needs. Nutrition Related Findings: mild fat/muscle losses Wound Type: None Current Nutrition Intake & Therapies: Average Meal Intake: 26-50% Average Supplements Intake: None Ordered ADULT DIET; Regular; 4 carb choices (60 gm/meal) Anthropometric Measures: Height: 5' 5 (165.1 cm) [place] Body Weight (IBW): 125 lbs (57 kg) Admission Body Weight: 107 lb (48.5 kg) Current Body Weight: 107 lb (48.5 kg), 85.6 % IBW. Weight Source: Bed Scale Current BMI (kg/m2): 17.8 Usual Body Weight: 119 lb (54 kg) (2020) % Weight Change (Calculated): -10.1 Weight Adjustment For: No Adjustment BMI Categories: Underweight (BMI less than 22) age over 65 Estimated Daily Nutrient Needs: Energy Requirements Based On: Kcal/kg Weight Used for Energy Requirements: Current Energy (kcal/day): 3860-8134 (30-33/kg) Weight Used for Protein Requirements: Current Protein (g/day): 68-78g (1.4-1.6g/kg) Method Used for Fluid Requirements: 1 ml/kcal Fluid (ml/day): 1500 ml Lab Results Component Value Date/Time LABA1C 6.7 06/23/2020 07:35 AM Recent Labs 07/10/22 1420 NA 136 K 4.1 CL 101 CO2 17* BUN 17 CREATININE 0.48* GLUCOSE 174* ALT 23 ALKPHOS 116* Lab Results Component Value Date/Time LABALBU 3.6 07/10/2022 02:20 PM Recent Labs 07/10/22 1402 07/10/22 1910 07/10/22 1943 07/11/22 0654 07/11/22 1108 POCGLU 158* 184* 202* 160* 196* No results found for: TRIG, HDL, LDLCALC, LDLDIRECT, LABVLDL Nutrition Diagnosis: Moderate malnutrition related to inadequate protein-energy intake as evidenced by intake 0-25%, mild muscle loss, mild loss of subcutaneous fat Increased nutrient needs related to acute injury/trauma as evidenced by other (comment) (Fx) Nutrition Interventions: Food and/or Nutrient Delivery: Continue Current Diet, Start Oral Nutrition Supplement (obtain vitamin D level) Nutrition Education/Counseling: No recommendation at this time Coordination of Nutrition Care: Continue to monitor while inpatient Plan of Care discussed with: Patient Goals: Goals: Meet at least 75% of estimated needs Nutrition Monitoring and Evaluation: Behavioral-Environmental Outcomes: None Identified Food/Nutrient Intake Outcomes: Food and Nutrient Intake, Supplement Intake Physical Signs/Symptoms Outcomes: Biochemical Data, Weight Discharge Planning: Continue current diet, Continue Oral Nutrition Supplement BONNIE TORRES RD, LD Contact: [phone] Supervisor at bedside to complete second shift assessment. Assessment and vital signs completed, see flow sheet for details. Pt denies any needs at this time. Call light within reach. Will continue to monitor. Dr. Riley called back. Order given for sliding scale. Dr. Riley paged Per [facility] approved formulary policy. SGLT2's are only formulary with the indication of CKD or CHF therefore: Please note that the Empagliflozin (Jardiance) is non-formulary with indications of type 2 diabetes and has been discontinued while inpatient. If you feel the patient needs to continue their home therapy during the inpatient stay, the patient may bring their medication bottle for verification and administration pursuant to our home medication use policy. Please contact the pharmacy with any questions or concerns. Thank you. Alhaji Monroe RPH, Alysa/PharmD 07/10/2022 7:06 PM Images from the original note were not included. Pharmacist Review and Automatic Dose Adjustment of Prophylactic Enoxaparin The reviewing pharmacist has made an adjustment to the ordered enoxaparin dose or converted to UFH per the approved [facility] protocol and table as identified below. Hetal Jasso is a 67 y.o. female. Recent Labs 07/10/22 1420 CREATININE 0.48* Estimated Creatinine Clearance: 85 mL/min (A) (based on SCr of 0.48 mg/dL (L)). Recent Labs 07/10/22 1420 HGB 13.4 HCT 38.9 PLT See Reflexed IPF Result No results for input(s): INR in the last 72 hours. Height: Ht Readings from Last 1 Encounters: 07/10/22 5' 5 (1.651 m) Weight: Wt Readings from Last 1 Encounters: 07/10/22 107 lb (48.5 kg) Plan: Based upon the patient's weight and renal function Ordered: Enoxaparin 40mg SUBQ Daily Changed/converted to New Order: Enoxaparin 30mg SUBQ Daily Thank you, Alhaji Monroe RPH 07/10/2022, 7:[address] Supervisor at bedside to complete admission assessment, navigator and vital signs. Pt arrived to floor via ER bed. Pt transfered with assistance. Shift assessment, vital signs and addmission navigator complete, see flow sheet for details. Pt stated pain level is 7/10. Pt denies any other needs at this time. Will continue to monitor. Pt admitted from ER for left tibial plateau fx. Report received from ZEHRA Yeager. Pt is A&Ox4, anxious but cooperative. VS as charted. Pt oriented to room, bathroom, call light system and meal times. No family accompanied pt to [facility]. Pt resting in bed, call light within reach, denies further needs at this time. Will continue to monitor. Reviewed XR and CT. Non surgical treatment recommended. Nonweightbearing and knee immobilizer. Full consult will be completed tomorrow documented in this encounter [facility] [place] Phone: 07-11-2022 Hospital course Narrative Joe Ash M.D. Internal Medicine Discharge Summary Patient ID: Hetal Jasso [id number] Admission date: 07/10/2022 Discharge date: 07/11/2022 Admitting Physician: Mane Cooley MD Primary Discharge Diagnoses: Patient Active Problem List Diagnosis Date Noted Moderate malnutrition (HCC) 07/11/2022 Tibial plateau fracture, left, closed, initial encounter 07/10/2022 Acute cystitis without hematuria 07/07/2020 Encephalopathy acute 07/07/2020 Febrile illness 07/04/2020 Alcoholic cirrhosis of liver with ascites (HCC) Difficulty walking Weakness Chronic obstructive pulmonary disease (HCC) Alcohol dependence in remission (HCC) Portal hypertension (HCC) Type 2 diabetes mellitus without complication, with long-term current use of insulin (HCC) Major depression Right heart failure, unspecified (HCC) Thrombocytopenia, unspecified (HCC) Other pancytopenia (HCC) Acquired coagulation factor deficiency (HCC) Constipation Insomnia Additional Diagnoses: Diagnosis Date 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 female who was admitted for Tibial plateau fracture, left, closed, initial encounter. Ms. Jasso presented to the ER on 07/10/22 following a fall at her ECF. She states she was trying to reach her walker and didn't know the brakes were not engaged and it rolled away from her and she fell forward onto her knees. She had immediate left knee pain. In ER she was found to have a left tibial plateau fracture. She was seen by Ortho and no surgery was required . She is non-weight bearing LLE and has an immobilizer brace ordered and fitted. Pain was controlled with Manning and is fine as long as she doesn't move her knee. She will have Ortho f/u with Dr. Karel Dennis in 2 weeks. . She was deemed medically stable for discharge and was amenable to the discharge plan. Discharge Exam: GEN: Awake, alert and oriented x3. EYES: EOMI, pupils equal NECK: Supple. No lymphadenopathy. No carotid bruit CVS: regular rate and rhythm, no audible murmur PULM: CTA, no wheezes, rales or rhonchi, no acute respiratory distress ABD: Bowels sounds normal. Abdomen is soft. No distention. no tenderness to palpation. EXT: no edema bilaterally . No calf tenderness. NEURO: Moves all extremities. Motor and sensory are grossly intact SKIN: No rashes. No skin lesions. Consultants: Dr. Karel Dennis, Ortho Procedures: none Complications: none Significant Diagnostic Studies: Recent Labs 07/10/22 1420 07/11/22 0603 WBC 5.2 3.7 RBC 3.91* 3.41* HGB 13.4 11.6* HCT 38.9 33.3* MCV 99.5 97.7 RDW 14.4 13.8 PLT See Reflexed IPF Result See Reflexed IPF Result Recent Labs 07/10/22 1420 07/11/22 0603 SEGS 79* 58 NEUTROABS 4.12 2.14 LYMPHOPCT 12* 23* LYMPHSABS 0.62* 0.85* MONOPCT 7 15* EOSRELPCT 1 3 BASOPCT 1 1 IMMGRAN 0 0 Recent Labs 07/10/22 1420 GLUCOSE 174* Recent Labs 07/10/22 1420 BUN 17 CREATININE 0.48* NA 136 K 4.1 CL 101 CALCIUM 9.5 ANIONGAP 18* CO2 17* PROT 5.9* LABALBU 3.6 BILITOT 2.8* ALKPHOS 116* AST 34* ALT 23 Radiology/Imaging: CT KNEE LEFT WO CONTRAST Final Result 1. Mildly depressed anterolateral tibial plateau fracture with depression/articular offset measuring 2 mm. Vertical fracture component extends through the lateral compartment joint space and inferiorly through the proximal lateral tibial metaphysis. Underlying severe osteopenia/osteoporosis. 2. Large lipohemarthrosis/joint effusion. 3. Mild edema in the subcutaneous fat about the left knee. XR TIBIA FIBULA LEFT (2 VIEWS) Final Result Left knee: 1. Slight age-indeterminate deformity of the lateral tibial plateau. Large joint effusion/lipohemarthrosis. This could be related to an occult fracture at the lateral tibial plateau. Further evaluation with CT recommended. 2. Diffuse osteopenia. Left tib fib: 1. Slight age-indeterminate deformity of the lateral tibial plateau. Underlying osteopenia. Please see left knee radiograph interpretation. 2. Evidence of prior ORIF of the medial malleolus, distal tibia and distal fibula. XR KNEE LEFT (3 VIEWS) Final Result Left knee: 1. Slight age-indeterminate deformity of the lateral tibial plateau. Large joint effusion/lipohemarthrosis. This could be related to an occult fracture at the lateral tibial plateau. Further evaluation with CT recommended. 2. Diffuse osteopenia. Left tib fib: 1. Slight age-indeterminate deformity of the lateral tibial plateau. Underlying osteopenia. Please see left knee radiograph interpretation. 2. Evidence of prior ORIF of the medial malleolus, distal tibia and distal fibula. Discharge Condition: stable Disposition: DC back to [facility] in [place] Discharge Medications: Medication List START taking these medications enoxaparin Sodium 30 MG/0.3ML injection Commonly known as: LOVENOX Inject 0.3 mLs into the skin daily for 14 days Start taking on: July 12, 2022 HYDROcodone-acetaminophen 5-325 MG per tablet Commonly known as: NORCO Take 2 tablets by mouth every 6 hours as needed for Pain for up to 5 days. Max Daily Amount: 8 tablets CONTINUE taking these medications acetaminophen 325 MG tablet Commonly known as: TYLENOL b complex vitamins capsule HUMALOG KWIKPEN SC insulin glargine 100 UNIT/ML injection vial Commonly known as: LANTUS JARDIANCE PO lactulose 10 GM/15ML solution Commonly known as: CHRONULAC Take 30 mLs by mouth 2 times daily magnesium oxide 400 MG tablet Commonly known as: MAG-OX melatonin 3 MG Tabs tablet mirtazapine 15 MG tablet Commonly known as: REMERON MULTIVITAMIN ADULT PO rifAXIMin 550 MG tablet Commonly known as: XIFAXAN vitamin D 125 MCG (5000 UT) Caps capsule Commonly known as: CHOLECALCIFEROL STOP taking these medications polyethylene glycol 17 GM/SCOOP powder Commonly known as: GLYCOLAX Where to Get Your Medications You can get these medications from any pharmacy Bring a paper prescription for each of these medications enoxaparin Sodium 30 MG/0.3ML injection HYDROcodone-acetaminophen 5-325 MG per tablet Patient Instructions: Activity: Activity as tolerated without restrictions Diet: regular diet Wound Care: none needed Follow up with No primary care provider on file. in 1-2 weeks Follow-up with GAYATHRI GELLER in 1-2 weeks Follow up in [address] Karel Dennis - call for appt CORE MEASURES on Discharge (if applicable) ADALI/ARB in CHF: N/A ASA in ID: N/A Statin in ID: N/A Statin in CVA: N/A Antiplatelet in CVA: N/A Total time spent on discharge services: 40 minutes Including the following activities: Evaluation and Management of patient Discussion with patient and/or surrogate about current care plan Coordination with Case Management and/or Occupancy Specialist Coordination of care with Consultants (if applicable) Coordination of care with Receiving Facility Physician (if applicable) Completion of DME forms (if applicable) Preparation of Discharge Summary Preparation of Medication Reconciliation Preparation of Discharge Prescriptions Signed: Joe Ash MD, M.D. 07/11/2022 2:02 PM documented in this encounter [facility] Phone: 07-11-2022 Hospital Discharge instructions Anna JaimeszierAbdoulayek, QUALITY PROCESS LEAD - 07/11/2022 12:37 PM EDT Continuity of Care Form Patient Name: Hetal Jasso : 1955 Admit date: 07/10/2022 Discharge date: 07/11/2022 Code Status Order: Full Code Advance Directives: Admitting Physician: No admitting provider for patient encounter. PCP: No primary care provider on file. Discharging Nurse: ZEHRA Diaz Discharging Hospital Unit/Room#: 0329/0329-01 Discharging Unit Emergency Contact: Extended Emergency Contact Information Primary Emergency Contact: Jason Pereira Mobile Relation: Child Supervisor Pressing Department needed? No Secondary Emergency Contact: Fredy Beltran Mobile Relation: Brother/Sister Supervisor Pressing Department needed? No Past Surgical History: History reviewed. No pertinent surgical history. Immunization History: Immunization History Administered Date(s) Administered Hep A-Hep B, TWINRIX, (age 18y+), IM, 1mL 02/24/2009, 11/24/2009 Hep B, ENGERIX-B, RECOMBIVAX-HB, (age - 19y), IM, 0.5mL 07/28/2009 Influenza Virus Vaccine 01/19/2018 Active Problems: Patient Active Problem List Diagnosis Code Alcoholic cirrhosis of liver with ascites (HCC) K70.31 Difficulty walking R26.2 Weakness R53.1 Chronic obstructive pulmonary disease (HCC) J44.9 Alcohol dependence in remission (HCC) F10.21 Portal hypertension (HCC) K76.6 Type 2 diabetes mellitus without complication, with long-term current use of insulin (HCC) E11.9, Z79.4 Major depression F32.9 Right heart failure, unspecified (HCC) I50.810 Thrombocytopenia, unspecified (HCC) D69.6 Other pancytopenia (HCC) D61.818 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 Constipation K59.00 Insomnia G47.00 Febrile illness R50.9 Acute cystitis without hematuria N30.00 Encephalopathy acute G93.40 Tibial plateau fracture, left, closed, initial encounter S82.142A Moderate malnutrition (HCC) E44.0 Isolation/Infection: Isolation No Isolation Patient Infection Status Infection Onset Added Last Indicated Last Indicated By Review Planned Expiration Resolved Resolved By None active Resolved COVID-19 (Rule Out) 07/04/20 07/04/20 07/04/20 COVID-19, Rapid (Ordered) 07/04/20 Rule-Out Test Resulted Nurse Assessment: Last Vital Signs: BP 130/72 Pulse 87 Temp 97.3 F (36.3 C) (Temporal) Resp 18 Ht 5' 5 (1.651 m) Wt 107 lb (48.5 kg) SpO2 93% BMI 17.81 kg/m Last documented pain score (0-10 scale): Pain Level: 9 Last Weight: Wt Readings from Last 1 Encounters: 07/11/22 107 lb (48.5 kg) Mental Status: oriented, alert, and coherent IV Access: - None Nursing Mobility/ADLs: Walking Assisted Transfer Assisted Bathing Assisted Dressing Assisted Toileting Assisted Feeding Independent Chin Strap Maker Assisted Med Delivery whole Wound Care Documentation and Therapy: Elimination: Continence: Bowel: No Bladder: No Urinary Catheter: None Colostomy/Ileostomy/Ileal Conduit: No Date of Last BM: 07/09/2022 Intake/Output Summary (Last 24 hours) at 07/11/2022 1236 Last data filed at 07/11/2022 1229 Gross per 24 hour Intake 860 ml Output -- Net 860 ml I/O last 3 completed shifts: In: 500 [P.O.:500] Out: - Safety Concerns: History of Falls (last 30 days) and At Risk for Falls Impairments/Disabilities: Hearing Nutrition Therapy: Current Nutrition Therapy: - Oral Diet: Carb Control 4 carbs/meal (1800kcals/day) Routes of Feeding: Oral Liquids: No Restrictions Daily Fluid Restriction: no Last Modified Barium Swallow with Video (Video Swallowing Test): not done Treatments at the Time of Hospital Discharge: Respiratory Treatments: nonr Oxygen Therapy: is not on home oxygen therapy. Ventilator: - No ventilator support Rehab Therapies: Physical Therapy and Occupational Therapy Weight Bearing Status/Restrictions: No weight bearing restrictions Other Medical Equipment (for information only, NOT a DME order): wheelchair, walker, and braces left lower extremity Other Treatments: none Patient's personal belongings (please select all that are sent with patient): Glasses RN SIGNATURE: CASE MANAGEMENT/SOCIAL WORK SECTION Inpatient Status Date: 07/10/2022 Readmission Risk Assessment Score: Readmission Risk Risk of Unplanned Readmission: 12 Discharging to Facility/ Agency Name: [facility] Address: [address] [place] [id number] Dialysis Facility (if applicable) Name: Address: Dialysis Schedule: Phone: Fax: Vocational Instructor/Occupancy Specialist signature: PHYSICIAN SECTION Prognosis: Good Condition at Discharge: Stable Rehab Potential (if transferring to Rehab): Good Recommended Labs or Other Treatments After Discharge: n/a Physician Certification: I certify the above information and transfer of Hetal Jasso is necessary for the continuing treatment of the diagnosis listed and that she requires Alf Facility for less 30 days. Update Admission H&P: No change in H&P PHYSICIAN SIGNATURE: documented in this encounter [facility] Phone: 04-13-2022 Evaluation note Encounter Date Diagnosis Assessment Notes Apr, Closed displaced intertrochanteric fracture of left femur with routine healing, subsequent encounter (ICD-10 - S72.142D) Apr, Other specified postprocedural states (ICD-10 - Z98.890) Apr, Other [facility] short on 10/25/2021 Overall her recovery has gone well but she appears to have become more deconditioned as she has not done much physical therapy over the past several months for various reasons. As a result, it seems as though she is more reliant on her wheelchair. I had a discussion with her about her taking some of the onus on her self to do some of the walking with a walker in her room or in the halls of her facility to try and build up her strength and build up her stamina today and get rid of the wheelchair and go to the walker. I explained to her that her x-ray findings today look really good and I think that her hip fracture is essentially healed. I do not appreciate any hardware issues at this time. I explained to her that I do not feel we need to get any further x-rays unless there is a problem in the future. In regards to her calcium and vitamin D that she is continuing to take, I recommended that she continue this under the supervision of her primary care provider. With essentially a healed fracture in her left hip and not having any issues with it, I discussed with her about following up on an as-needed basis. She agreed with this plan. I will see her in follow-up on a as needed basis. [employer] Other 10-20-2022 Evaluation note* Encounter Date Diagnosis Assessment Notes Treatment Notes Treatment Clinical Notes Jan, Closed displaced intertrochanteric fracture of left femur with routine healing, subsequent encounter (ICD-10 - S72.142D) Jan, Other specified postprocedural states (ICD-10 - Z98.890) Jan, Other Had a long discussion with the patient regarding further treatment goals at this time. I explained to her that her x-rays look good and are showing signs of increased healing. At this point I think that she needs to really focus on more physical therapy at her assisted living facility. I have placed another order for PT/OT at her assisted living facility so that she can get this daily if possible. We discussed that her goal will be to wean off of her walker and to then rely on a cane the majority of the time. When I see her back in 3 months where shooting for accomplishing that goal. We will get another set of x-rays in 3 months. Patient is in agreement with this plan. All of her questions and concerns were answered and addressed. 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 she had got phlebotomy under Dr. Clifton kothari. She get two phlebotomy per monthsince about Mar 2021 to July 2021. Has not had liver biopsy, patient declined. Held phlebotomy in July as her ferritin was 279 and she had been pretty anemic Jan 2022 will re-start at one phlebotomy per month given ferritin up to 358 withhgb 11.6. Patient notes she felt better when she was getting phlebotomy also. Broke her hip in Dec 2021 after a fall. Is recovering well from this Continue with 6 month follow-up and repeat labs Continues with pancytopenia, stable overall Liver cirrhosis likely the cause Previously declined further work-up Follow Up Instructions: therapeutic phlebotomy once per month follow-up in 6mo cbc, cmp, iron studies, yoselyn, haptoglobin, retic, epo prior to follow-up - History of Present Illness Chief Complaint: Patient is here for a 6 month follow up with outside labs for review. No concerns voiced at this time. HPI: 06/04/2021: Hetal presents today in follow-up for her hemochromatosis. Her last ferritin level was 279 on 05/24/21. She states the facility she is currently at does not draw her labs every 2wks like they are supposed to, so she usually endsup having to sit at [facility] and wait for her lab results prior to getting phlebotomy each time. We will send updated orders to her facility and confirm they are aware of these. She continues to have 1 unit phlebotomy every 2 weeks and we are seeing a steady decline in her ferritin. Goal is <100, so we will continue with the current treatment plan for now. She has questions regarding any further testing on her liver. We discussed briefly the tests that Dr. Lazo had previously mentioned of liver biopsy and MRI, and that from our standpoint the tests likely wouldn't change our care. Elizabethwill decide if she wants to do anything further and let us know next month. She would like to follow-up in 1 month to establish with a new physician and re-check her counts. She also notes intermittent right upper to mid quadrant pain related to her liver, but this is absent today, nontender to palpation and the liver is not enlarged on exam. We will continue to follow. 01/14/2021: Hetal presents in follow-up. Her serum iron is 172, total iron- binding capacity 202 with a calculated transferrin saturation at 85% clearly elevated. Serum ferritin is elevated at 327. The patient has a bilirubin of 3.0. White blood cell count was 2.2 with platelet count of 41. This is a 65-year-old female who is referred by Dr. Hua and follows with Dr. Ann in [place]. She has seen Dr. Hua with evidence of cirrhosis. She is an alcoholic having been off of alcohol for about a year now. Her motherhad alcoholism and liver disease. The patient also has 2 mutations identified in the hereditary hemochromatosis gene work-up, 2 mutations with C282Y and H 63D. She is diabetic. Her mother had cirrhosis but also alcoholism. Patient's labs were reviewed showing a ferritin of 390. Hep B and C assays are negative. CBC shows a white count of 2.2 and platelet count of 41. Normal hemoglobin but MCV at 103.5. 2 mutations identified in hereditary hemochromatosis gene analysis, C282Y and H 63D. Today in follow-up we reviewed our findings. Her iron stores are clearly elevated consistent with iron overload, hemochromatosis. 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 She is diabetic with evidence of cirrhosis. If we were to refer her to liver biopsy to ascertain liver stores orrefer her for liver MRI I would argue that if the results are positive or negative I still would recommend phlebotomy program. I did review with her how alcohol can skew the findings of patients with iron overload and cirrhosis. Thepatient is diabetic, with cirrhosis and clear evidence of iron overload. We do have our genetic findings as well. I would recommend a phlebotomy program at this time. We also talked about her children and family and getting them tested. 07/12/21 she has been getting phlebotomy every other week since maybe apr. Recent labs did not include cbc or iron studies. She hasnt had iron studies eddie while, last month her hb was in 9-10 range and plt 40s. feels well overall. 01/14/22 she feels well overall, is recovering from a fall where she broke her left hip she has some nausea occasionally, but no vomiting. No diarrhea or constipation is not eating well at [facility], feels the food is bad. If she goes out to eat, she can eat a lot without issues denies fever, chills, sweats, chest pain, shortness of breath or other new complaints has not had phlebotomy since July. She notes she felt better when she was getting this done cbc stable overall, iron high with ferritin 358 - Physical Exam Ecog PS 2 she is in assisted living home. she uses a wheelchair General : patient is alert and oriented to person place and time, no acute distress. Neck: no JVD or thyromegaly. Lymph: no cervical, supraclavicular, axillary adenopathy. Heart: regular rate and rhythm no murmurs rubs or gallops. Abdomen: soft nontender nondistended, no hepatosplenomegaly. Lungs: clear to auscultation bilaterally. No wheezes, rales, rhonchi. Extremities: no clubbing cyanosis or edema. - Time with Patient Coordination of Care & Counseling Time: Greater than 50% of time spent with patient was for coordination of care (as documented) and [id number] counseling of patient and/or family. [facility] - Medical History Medical History: Medical History (Last Updated 10/25/21 @ 13:38 by Sharath Marques DO) Acquired coagulation factor deficiency Alcoholic cirrhosis Anemia Constipation COPD (chronic obstructive pulmonary disease) Depressive disorder Diabetes mellitus, type 2 Hepatic failure Hypertension Hypokalemia Insomnia Pancytopenia Right heart failure - Surgical History Surgical History: Surgical History (Last Reviewed 12/29/20 @ 11:36 by Niko Lazo MD) History of ankle surgery left History of hysterectomy Hx of exploratory laparotomy - Family History Family History: Family History (Last Reviewed 12/29/20 @ 11:36 by Niko Lazo MD) Brother Diabetes Mother No problems noted. Mother Osteoporosis - Social History Smoking Status: Current every day smoker Tobacco Type: cigarettes Substance Use Type: Alcohol Substance Abuse Comment: unknown Additional Data - Additional Objective Data Height/Weight: Height 5 ft 3.5 in Weight 48.943 kg Vital Signs: 01/14/22 10:03 Pulse Rate [Left Brachial] 86 Respiratory Rate 20 Blood Pressure [Right Arm] 88/53 L 02 Sat by Pulse Oximetry 98 Oxygen Delivery Method Room Air - Lab Results Diagram of Most Recent CBC and CMP 12/29/20 11:03 - Home Medications and Allergies Allergies/Adverse Reactions: Allergies bupropion Allergy (Verified 06/04/21 10:54) Unknown Reaction Home Medications: Home Medications cholecalciferol (vitamin D3) 25 mcg (1,000 unit) tablet 25 mcg PO DAILY 10/15/20[History Confirmed 01/14/22] ergocalciferol (vitamin D2) 50,000 unit tablet 50,000 unit PO Q7D 10/15/20 [History Confirmed 01/14/22] furosemide 20 mg tablet 20 mg PO DAILY 10/15/20 [History Confirmed 01/14/22] insulin lispro 100 unit/mL subcutaneous pen (Humalog KwikPen (U-100) Insulin) See Protocol subcut ACHS 10/15/20 [History Confirmed 01/14/22] melatonin 3 mg capsule 5 mg PO HS 10/15/20 [History Confirmed 01/14/22] metformin 500 mg tablet 500 mg PO DAILY 10/15/20 [History Confirmed 01/14/22] multivitamin 1 tab PO DAILY 10/15/20 [History Confirmed 01/14/22] polyethylene glycol 3350 17 gram oral powder packet (Miralax) 17 g PO DAILY 10/15/20 [History Confirmed 01/14/22] potassium chloride 20 mEq tablet,extended release 20 meq PO DAILY 10/15/20 [History Confirmed 01/14/22] rifaximin 550 mg tablet 550 mg PO BID 10/15/20 [History Confirmed 01/14/22] spironolactone 25 mg tablet 25 mg PO DAILY 10/15/20 [History Confirmed 01/14/22] dextrose 40 % oral gel (Glucose Gel) 10 g PO Q15M PRN diabetes 12/29/20 [History Confirmed 01/14/22] glucagon HCl 1 mg solution for injection (Glucagon (HCl) Emergency Kit) 1 mg subcut Q20M PRN diabetes 12/29/20 [History Confirmed 01/14/22] insulin glargine 100 unit/mL subcutaneous solution 15 unit subcut QAM 12/29/20 [History Confirmed 01/14/22] albuterol sulfate 90 mcg/actuation aerosol inhaler 2 puff inhalation Q4-6H PRN Shortness Of Breath 06/04/21 [History Confirmed 01/14/22] ipratropium 0.5 mg-albuterol 3 mg (2.5 mg base)/3 mL nebulization soln 3 ml inhalation Q6H PRN Shortness Of Breath 06/04/21 [History Confirmed 01/14/22] lidocaine 4 % topical patch 1 patch topical BID PRN Pain 06/04/21 [History Confirmed 01/14/22] mirtazapine 15 mg tablet (Remeron) 15 mg PO QHS 06/04/21 [History Confirmed 01/14/22] nicotine (polacrilex) 2 mg gum (Nicorette) 2 mg buccal Q1-2H PRN Smoking Cessation 06/04/21 [History Confirmed 01/14/22] benzonatate 100 mg capsule 100 mg PO TID PRN Cough 06/08/21 [History Confirmed 01/14/22] diclofenac sodium 1 % topical gel 2 g topical QID PRN Pain 06/08/21 [History Confirmed 01/14/22] dulaglutide 4.5 mg/0.5 mL subcutaneous pen injector (Trulicity) 4.5 mg subcut QWEEK 10/25/21 [History Confirmed 01/14/22] lactulose 20 gram/30 mL oral solution 20 g PO DAILY PRN Abdominal Distention 10/25/21 [History Confirmed 01/14/22] lactulose 20 gram/30 mL oral solution 20 g PO TID 10/25/21 [History Confirmed 01/14/22] menthol 4 % topical gel (Biofreeze (menthol)) 1 applic topical TID PRN Pain 10/25/21 [History Confirmed 01/14/22] vitamin B complex 1 cap PO DAILY 10/25/21 [History Confirmed 01/14/22] magnesium oxide 400 mg (241.3 mg magnesium) tablet 400 mg PO QAM #0 tabs 11/01/21 [Rx Confirmed 01/14/22] oxycodone 5 mg tablet 2.5 mg PO Q4HR PRN Breakthrough Pain 2 days #10 tabs 11/01/21 [Rx Confirmed 01/14/22] alendronate 70 mg tablet 70 mg PO QWEEK 01/14/22 [History Confirmed 01/14/22] celecoxib 100 mg capsule (Celebrex) 100 mg PO Q12H PRN Pain 01/14/22 [History Confirmed 01/14/22] empagliflozin 10 mg tablet (Jardiance) 10 mg PO DAILY 01/14/22 [History Confirmed 01/14/22] lisinopril 2.5 mg tablet 2.5 mg PO DAILY 01/14/22 [History Confirmed 01/14/22] ondansetron 4 mg disintegrating tablet 4 mg PO Q4H PRN Nausea 01/14/22 [History Confirmed 01/14/22] Dictated By: Hetal Gracia APRN DD/ 1016 Signed By: <Electronically signed by ADE Gracia> 01/14/22 6031 [facility] Work Phone: [phone] Evaluation note* Encounter Date Diagnosis Assessment Notes Treatment Notes Treatment Clinical Notes Dec, Closed displaced intertrochanteric fracture of left femur with routine healing, subsequent encounter (ICD-10 - S72.142D) Dec, Other specified postprocedural states (ICD-10 - Z98.890) Dec, Other [facility] L CMN, shor t on 10/25/2021 Overall patient seems progressing well after her hip fracture. At this time I recommend that she continue working with PT/OT to wean off of her walker and transition to a cane. Prior to her fall she did not use a cane or any other assistive devices. We did discuss today that it may be more realistic for her to use a cane on a more consistent basis as she goes through this recovery. Recommend that she continue with calcium and vitamin D supplementation. This was confirmed on her medication list. We will plan to see her back in the office in 6 weeks with repeat x-rays. [employer] Other 08-01-2022 Discharge summary Author Kadeem Saenz [facility] November 01, 2021 12:57pm Note Date/Time November 01, 2021 12: 57pm [facility] [address] [place], [place] [id number] Discharge Summary Signed Patient: Hetal Jasso MR#: [id number] 427 : 1955 Acct:[id number] Age/Sex: 66 / F Adm Date: 2 Loc: Room: [address] [place] [address]: Kadeem Saenz MD Copies to: Marcelo Ann,DO Kadeem Saenz MD~ Providers Date of Discharge: 11/01/21 Discharging Provider: Kadeem Saenz Primary Care Provider: Marcelo Ann Consults: 10/25/21 11:41 Consult to Orthopedic Surgery Routine 10/25/21 20:04 Consult to Occupational Therapy Routine Consult to Physical Therapy Routine 10/26/21 07:45 Consult to Dietitian Routine Discharge Diagnosis (1) Displaced intertrochanteric fracture of left femur, initial encounter for closed fracture: (2) Fall from ground level: (3) COVID-19: (4) Hemochromatosis: (5) Cirrhosis: (6) COPD (chronic obstructive pulmonary disease): (7) Diabetes mellitus, type 2: (8) Pancytopenia: (9) Severe protein-calorie malnutrition: (10) Hyponatremia: (11) Encephalopathy due to COVID-19 virus: Final Diagnosis Final Discharge Diagnosis: As above Summary Hospital Course Hospital course: Patient is a 66-year-old female with history of cirrhosis, diabetes mellitus type 2, COPD and other medical comorbidities. She was brought to the emergency room with left hip pain after a fall. In the ER x-ray showed left hip fracture and was admitted for further management. She also tested positive for COVID-19. Orthopedic was consulted and she underwent left cephalomedullary nail. Her postoperative hospital stay was complicated by metabolic encephalopathy due to COVID which has improved. Patient on room air with no signs of respiratory distress. She was given dexamethasone initially as was requiring oxygen but hasbeen discontinued. She will be [facility] to prison facility. She does have history of hemochromatosis and follows with hematology. She will be discharged on subcutaneous heparin for DVT prophylaxis. Condition Condition at Discharge: Stable Time Spent with Patient Time spent providing/coordinating discharge services (# min): 32 Surgeries and Procedures Operation Date: 10/25/21 18:05 Actual Procedures p OR Left Hip TFN; Short Nail(Left) - Karel Moralez II, MD Diagnostic Studies Completed and Pending Studies Pending studies at discharge: 11/02/21 05:00 Prothrombin Time INR IN AM Basic Metabolic Panel [CHEM] IN AM Complete Blood Count Auto Diff IN AM Hepatic Panel [CHEM] IN AM 11/03/21 05:00 Prothrombin Time INR IN AM Basic Metabolic Panel [CHEM] IN AM Complete Blood Count Auto Diff IN AM Hepatic Panel [CHEM] IN AM 11/04/21 05:00 Prothrombin Time INR IN AM Basic Metabolic Panel [CHEM] IN AM Complete Blood Count Auto Diff IN AM Hepatic Panel [CHEM] IN AM Labs on day of discharge: 11/01/21 11:39: POC Glucose 267 11/01/21 06:44: POC Glucose 135 11/01/21 06:08: PHA Creatinine Clear 58.44, Sodium 130 L, Potassium 3.9, Chloride 97, Carbon Dioxide 26.8, BUN 14, Creatinine 0.60, Est GFR ( Amer) > 60, Est GFR (Non-Af Amer) > 60, Glucose 108 H, Calcium 8.6, Total Bilirubin 3.6 H, Direct Bilirubin 0.7 H, Indirect Bilirubin 2.9, AST 51 H, ALT 38, Alkaline Phosphatase 89, Total Protein 4.4 L, Albumin 2.6 L, Globulin 1.8, Albumin/Globulin Ratio 1.4 11/01/21 06:08: PT 17.2 H, INR 1.5 11/01/21 06:08: Corrected WBC 3.4 L, Uncorrected WBC Count 3.4 L, RBC 2.86 L, Hgb 10.0 L, Hct 28.5 L, MCV 99.7, MCH 34.8 H, MCHC 34.9, RDW 16.2 H, Plt Count 57 L, MPV 9.8, Neut % (Auto) 58.3, Lymph % (Auto) 21.7, [place] % (Auto) 16.1, Eos % (Auto) 3.7, Baso % (Auto) 0.2, Neut # (Auto) 2.0, Lymph # (Auto) 0.7 L, Old[place] # (Auto) 0.5, Eos # (Auto) 0.1, Baso # (Auto) 0.0, Nucleated RBC % (auto) 0.3 10/31/21 16:23: POC Glucose 476 H*, POC Glucose Comment Exam Physical Exam Vital Signs: Temp Pulse Resp BP Pulse Ox O2 Del Method O2 Flow Rate 97.1 F L 86 18 133/72 96 Room Air 2 11/01/21 08:01 11/01/21 08:01 11/01/21 08:01 11/01/21 08:01 11/01/21 08:01 11/01/21 08:01 10/28/21 16:00 Const Other: Resting comfortably with no signs of acute distress Resp Effort & Inspection: normal respiratory effort and able to speak in complete sentences Auscultation: no rales, no rhonchi and no wheezes Cardio Rate: regular rate Rhythm: regular rhythm Heart Sounds: S1 normal and S2 normal GI Inspection: non-distended Palpation: soft, not firm, no guarding and nontender Auscultation: normal bowel sounds Neuro General: moves all extremities and no focal motor deficits Extrem General: no calf tenderness Discharge Plan Discharge Plan Patient Disposition: long-term OR Care/Resident Activity: Ambulate as Tolerated and With Assist Comment: WBAT LLE Diet: Regular Additional Instructions: You tested positive for COVID-19 on 10/25/21. Please see COVID-19 discharge instructions. [facility] facility to manage: -PT/OT to eval and treat -Monitor VS per protocol -High fall risk precautions -Perform orthopedic assessments--- Dx: Left hip fracture with surgical repair (10/25/21) *Please see further instructions below -Perform respiratory assessments---Dx: COVID-19 -Monitor FSBS ACHS -Encourage use of incentive spirometry every 4 hours as tolerated -Dietitian recommendations: *Beneprotein, 1 packet, TID with meals *Magic Cup, 1 container, BID with meals -Care to be managed by LT providers. Orthopedic surgery discharge instructions You are to remain weightbearing as tolerated on your operative extremity. Leave your surgical dressing on for two weeks after surgery. Two weeks after surgery you may leave the incision open to air as long as there is no drainage. Ice the operative area for the first week after surgery, 20 minutes on and 20 minutes off for 3 hours a day. Continue therapy as instructed. Work on range of motion exercises as instructed in the hospital. Take all medications as prescribed. You should take calcium and vitamin D supplementation as well as a multivitamin. I also recommend using boost shakes for protein supplementation which will help with healing. Your sutures/yoanna may be removed 3 weeks postoperatively as long as there is no incisional drainage or issues. X-ray should be taken of your operative site at 6 weeks and 3 months postoperatively. These can be taken at your care facility, if you are still residing in one, and sent to Dr. Moralez's office for review. You do not need to come in if you are still staying at a care facility. If you have been discharged from a care facility, or you are discharged home after your hospital stay, you should follow-up with Dr. Moralez at 3 weeks, 6 weeks and 3 months postoperatively. Please monitor wound for any increased redness, irritation, pain or drainage. If there are any questions or concerns please call Dr. Moralez's office. Prescriptions: New oxycodone 5 mg Tablet 2.5 mg PO Q4HR PRN (Reason: Breakthrough Pain) 2 Days Qty: 10 0RF heparin (porcine) 5,000 unit/mL Solution 5,000 unit subcut Q12HR Qty: 0 0RF magnesium oxide 400 mg (241.3 mg magnesium) Tablet 400 mg PO QAM Qty: 0 0RF ascorbic acid (vitamin C) [Vitamin C] 500 mg Tablet 500 mg PO BID.WITH.MEALS 14 Days Qty: 0 0RF Continued lactulose 20 gram/30 mL Solution 20 g PO TID Rx Instructions: maintain 4-5 stools a day lactulose 20 gram/30 mL Solution 20 g PO DAILY PRN (Reason: Abdominal Distention) vitamin B complex [B Complex] Capsule 1 cap PO DAILY Biofreeze (menthol) 4 % Gel 1 applic TOPICAL TID PRN (Reason: Pain) Trulicity 4.5 mg/0.5 mL Pen Injector 4.5 mg SUBCUT QWEEK Rx Instructions: tuesdays multivitamin Tablet 1 tab PO DAILY metformin 500 mg Tablet 500 mg PO DAILY polyethylene glycol 3350 [Miralax] 17 gram Powder In Packet 17 g PO DAILY spironolactone 25 mg Tablet 25 mg PO DAILY ergocalciferol (vitamin D2) 50,000 unit Tablet 50,000 unit PO Q7D furosemide 20 mg Tablet 20 mg PO DAILY insulin lispro [Humalog KwikPen Insulin] 100 unit/mL Insulin Pen See Protocol SUBCUT [facility] Protocol: Custom Scale - (*Fill in blanks*) Condition: 151 - 200 Dose/Route: 4 UNITS Condition: 201 - 250 Dose/Route: 6 UNITS Condition: 251-300 Dose/Route: 8 UNITS Condition: 301-350 Dose/Route: 10 UNITS Condition: 351 - 400 Dose/Route: 12 UNITS Condition: >400 Instruction: CALL PROVIDER Rx Instructions: per scale cholecalciferol (vitamin D3) 25 mcg (1,000 unit) Tablet 25 mcg PO DAILY Biofreeze (menthol) 4 % Gel 1 applic TOPICAL Q6-8H MDD TID PRN (Reason: Pain) potassium chloride 20 mEq Tablet Extended Release 20 meq PO DAILY melatonin 3 mg Capsule 5 mg PO HS acetaminophen 325 mg Tablet 650 mg PO Q4H PRN (Reason: Pain) rifaximin 550 mg Tablet 550 mg PO BID insulin glargine 100 unit/mL Solution 15 unit SUBCUT QAM dextrose [Glucose Gel] 40 % Gel 10 g PO Q15M PRN (Reason: diabetes) Glucagon (HCl) Emergency Kit 1 mg Recon Soln 1 mg SUBCUT Q20M PRN (Reason: diabetes) mirtazapine [Remeron] 15 mg Tablet 15 mg PO QHS ipratropium-albuterol 0.5 mg-3 mg(2.5 mg base)/3 mL Solution For Nebulization 3 ml INHALATION Q6H PRN (Reason: Shortness Of Breath) lidocaine 4 % Adhesive Patch,Medicated 1 patch TOPICAL BID PRN (Reason: Pain) Rx Instructions: 12 hours on 12 hours off nicotine (polacrilex) [Nicorette] 2 mg Gum 2 mg BUCCAL Q1-2H PRN (Reason: Smoking Cessation) albuterol sulfate 90 mcg/actuation Hfa Aerosol Inhaler 2 puff INHALATION Q4-6H PRN (Reason: Shortness Of Breath) diclofenac sodium 1 % Gel 2 g TOPICAL QID PRN (Reason: Pain) benzonatate [Tessalon Perles] 100 mg Capsule 100 mg PO TID PRN (Reason: Cough) calcium carbonate [Tums 500] 500 mg calcium (1,250 mg) Tablet,Chewable See Rx Instructions .ROUTE .COMPLEX PRN (Reason: Indigestion) Rx Instructions: 2 tablets every 6 hourse Other Ambulatory Orders: XR hip LT min 2V(w/wo pelvis)* (Routine) Timeframe: 6 Weeks Location: Determined by Patient Ordered By: Kadeem Saenz Follow Up: Marcelo Ann DO [Primary Care Provider] - (Post hospital follow-up appointment. Please call to reschedule if needed. ) Karel Moralez II, MD [Active Staff] - (Xrays to office at 6 weeks ) Documented By: Kadeem Saenz MD 11/01/21 1251 Signed By: <Electronically signed by Kadeem Saenz MD> 11/01/21 1257 [facility] Work Phone: 1([phone]) 805-495207-31-2022 Progress note Author Sharath Marques [facility] October 31, 2021 8:36pm Note Date/Time October 31, 2021 8:36 pm [facility] [address] [place] [address] Progress Note Signed Patient: Hetal Jasso MR#: [id number] 427 : 1955 Acct:[id number] Age/Sex: 66 / F Adm Date: 2 Loc: Room: [address] [place] [address] Type: ADM IN Attending Dr: Sharath Marques DO Copies to: ~ Date of Service: 10/31/2021 Progress Narrative Note PROGRESS NOTE Progress Note: This note is a delayed entry/addendum for Sunday, October 31, 2021. Patient is doing much better today. As she is sitting upright in a chair. She is actually getting up out of her chair to ambulate around the room, and ambulating herself to the bathroom and much more mobile than she has been duringthe rest of his hospital stay. She has minimal pain from her hip fracture repair. She is eating really well. Bowel movements have been optimal. She seems to be very active. Previous encephalopathy is really clearing up. She isbreathing very well without any supplemental oxygen requirements. Nursing reports that she slept better last night. She is tolerating the pain on the left hip repair site with minimal amounts of acetaminophen and tramadol. I think that as of today, October 31 she is suitable for discharge to a prison facility for skilled Physical Therapy and Occupational Therapy due to the recent acute hip fracture in order to return her to her previous level of functioning and ADLs. This should be authorized by her insurance company with whom I spoke to an insurance company physician on Monday. The correct date of transfer from the hospital to the skilled nurse facility should be today. Documented By: Sharath Marques DO 2032 Signed By: <Electronically signed by Sharath Marques DO> 10/31/212035 [facility] Work Phone: [phone] 413-531507-31-2022 Progress note Author Sharath Marques [facility] October 31, 2021 3:13pm Note Date/Time October 31, 2021 3:13 pm [facility] [address] [place] [address] Hospitalist Progress Note Signed Patient: Hetal Jasso MR#: [id number] 427 : 1955 Acct:[id number] Age/Sex: 66 / F Adm Date: 2 Loc: Room: [address] [place] [address] Type: ADM IN Attending Dr: Sharath Marques DO Copies to: ~ Date of Service: 10/31/2021 Subjective Subjective Narrative: Today the patient is out of bed and seated in a chair. She has been very activetoday. She has been perseverating on the idea that she wants to go home. Bedside nurse notes the patient is eating fairly well today. Already had 4 bowel movements today. I think yesterday the patient was not compliant with lactulose but has been compliant with lactulose today. When I go in the room the patient talks to me also about I want [place]. [place] was and she thought for a moment and then said [place]. When I asked her what got her to live there and how many years that she has been there she indicates that she got there 3 years ago but does not know the reason why she had to be checked in with facility. At first she says COVID? And then she says I got COPD, no I do not have that? And then I had diabetes. She denies significant symptomatology right now. No headache or lightheadednessdespite some relatively low blood pressures. No sore throat or cough. No expectoration any sputum. No abdominal pain no nausea or upset stomach. Minimal complaints of pain on the left hip. Exam Physical Exam Vital Signs: Temp Pulse Resp BP Pulse Ox O2 Del Method O2 Flow Rate 97.3 F L 84 20 93/59 L 99 Room Air 2 10/31/21 12:00 10/31/21 12:50 10/31/21 12:50 10/31/21 12:00 10/31/21 12:00 10/31/21 12:00 10/28/21 16:00 Narrative: GENERAL APPEARANCE: Seated upright in a chair. Much more animated and conversant than any of the other days. HEAD: Normocephalic, atraumatic. EYES: PERRL THROAT: Mucous membranes pink and moist. CARDIAC: Normal rate. Regular rhythm. LUNGS: Clear to auscultation bilaterally. No accessory muscle use. Respirations non-labored. ABDOMEN: Normoactive bowel sounds. Soft, nondistended, nontender. No guarding, rebound, or rigidity. MSK: Left lower extremity wrapped in Adali bandages, incision sites with dressingsCDI. NEURO: PERRL, EOMI, upper extremity strength equal bilaterally, moves toes and ankles equal bilaterally. EXTREMITIES: No pitting edema. Capillary refill <2 seconds. SKIN: Warm and dry. Objective Lab Results CBC & Chem 7: 10/31/21 05:59 10/31/21 05:59 Meds Allergies and Active Meds Allergies bupropion Allergy (Verified 06/04/21 10:54) Unknown Reaction Active Meds: Active Medications Generic Name Dose Route Start Last Admin Trade Name Freq PRN Reason Stop Dose Admin Acetaminophen 650 mg 10/25/21 11:41 10/31/21 05:07 Acetaminophen 325 Mg Tablet PO 10/25/22 11:40 650 mg Q4H PRN Administration Pain Scale 1 - 3 or fever Acetaminophen 325 mg 10/29/21 10:10 10/31/21 08:21 Acetaminophen 325 Mg Tablet PO 10/29/22 10:09 325 mg QID ALY Administration Albuterol/Ipratropium 3 ml 10/25/21 16:00 10/31/21 12:50 Ipratropium/Albuterol 0.5-3 Mg 3 Ml Ampul.Neb INHALATION 10/25/22 15:59 3 ml QID.RESP ALY Administration Ascorbic Acid 500 mg 10/26/21 08:00 10/31/21 08:21 Ascorbic Acid 500 Mg Tablet PO 10/26/22 07:59 500 mg BID.WITH.MEALS ALY Administration Calcium Carbonate 500 mg 10/31/21 08:00 10/31/21 12:37 Calcium Carbonate 500 Mg Tablet PO 10/31/22 07:59 500 mg TID.WITH.MEALS ALY Administration Dextrose 0 gm 10/25/21 11:46 Dextrose 50% In Water 25 Gm/50 Ml Syringe IV-PUSH 10/25/22 11:45 PRN PRN Hypoglycemia Diclofenac Sodium 2 gm 10/25/21 13:48 Diclofenac Sodium 1% Gel 100 Gm Tube TOPICAL 10/25/22 13:47 QID PRN Pain Diphenhydramine HCl 25 mg 10/25/21 11:41 Diphenhydramine 50 Mg/Ml Vial IM 10/25/22 11:40 Q8H PRN Severe Rash or Itching Furosemide 20 mg 10/26/21 09:00 10/31/21 08:21 Furosemide 20 Mg Tablet PO 10/26/22 08:59 20 mg DAILY ALY Administration Glucagon 1 mg 10/25/21 13:48 Glucagon 1 Mg/Ml Vial SUBCUT Q20M PRN hypoglycemia protocol Glucose 0 gm 10/25/21 11:46 Dextrose 40% Gel 15 Gm Tube PO 10/25/22 11:45 PRN PRN Hypoglycemia Haloperidol 4 mg 10/31/21 21:00 Haloperidol 2 Mg Tablet PO 10/31/22 20:59 QPM ALY Heparin Sodium (Porcine) 5,000 unit 10/27/21 21:00 10/31/21 08:22 Heparin 5,000 Unit/Ml Vial SUBCUT 10/27/22 20:59 5,000 unit Q12HR ALY Administration Magnesium Sulfate 2 gm in 50 mls @ 25 mls/hr 10/25/21 11:41 10/25/21 15:22 Magnesium Sulf 2gm-*Swfi* IV 10/25/22 11:40 Infused DAILY PRN Infusion Magnesium Level < 1.5 Insulin Aspart 0 units 10/25/21 12:00 10/31/21 12:37 Insulin Aspart 300 Units/3 Ml Insuln.Pen SUBCUT 10/25/22 11:59 3 units TID.WM.HS ALY Administration Protocol Insulin Detemir 10 units 10/31/21 09:00 10/31/21 08:22 Insulin Detemir 300 Units/3 Ml Insuln.Pen SUBCUT 10/31/22 08:59 Not Given BID ALY Lactulose 20 gm 10/25/21 13:48 Lactulose 20 Gm/30 Ml Udc PO 10/25/22 13:47 DAILY PRN Abdominal Distention Lactulose 30 gm 10/27/21 18:00 10/31/21 08:22 Lactulose 20 Gm/30 Ml Udc PO 10/27/22 17:59 30 gm QID ALY Administration Lidocaine 1 patch 10/25/21 13:48 10/26/21 20:16 Lidocaine 4% Adh..Patch TOPICAL 10/25/22 13:47 1 patch BID PRN Administration Pain Magnesium Oxide 400 mg 10/31/21 09:00 10/31/21 08:21 Magnesium Oxide 400 Mg Tablet PO 10/31/22 08:59 400 mg QAM ALY Administration Melatonin 5 mg 10/25/21 22:00 10/30/21 21:32 Melatonin 5 Mg Tablet PO 10/25/22 21:59 5 mg HS ALY Administration Multivitamins 1 tab 10/26/21 09:00 10/31/21 08:21 Multivitamin 1 Tab Tablet PO 10/26/22 08:59 1 tab DAILY ALY Administration Naloxone HCl 0.4 mg 10/25/21 20:04 Naloxone Hcl 0.4 Mg/Ml Vial IV-PUSH 10/25/22 20:03 Q2M PRN Opioid Reversal Nitroglycerin 0.4 mg 10/25/21 11:41 Nitroglycerin 0.4 Mg Tab.Subl SUBLINGUAL 10/25/22 11:40 Q5M PRN Chest Pain Oxycodone HCl 2.5 mg 10/29/21 10:09 10/31/21 01:32 Oxycodone Ir 5 Mg Tablet PO 2.5 mg Q4HR PRN Administration Breakthrough Pain Potassium Chloride 20 meq 10/25/21 11:41 Potassium Chloride Er 20 Meq Tab.Er.Prt PO 10/25/22 11:40 DAILY PRN Hypokalemia Potassium Chloride 40 meq 10/25/21 11:41 Potassium Chloride Er 20 Meq Tab.Er.Prt PO 10/25/22 11:40 DAILY PRN Hypokalemia Rifaximin 550 mg 10/25/21 21:00 10/31/21 08:21 Rifaximin 550 Mg Tablet PO 10/25/22 20:59 550 mg BID ALY Administration Sodium Chloride 0 ml 10/25/21 11:41 10/29/21 15:01 Sodium Chloride 0.9 % 10 Ml Syringe IV-PUSH 10/25/22 11:40 10 ml PRN PRN Administration Flush Sodium Chloride 0 ml 10/25/21 16:08 10/26/21 08:10 Sodium Chloride 0.9 % 10 Ml Syringe IV-PUSH 10/25/22 16:07 10 ml PRN PRN Administration Flush Sodium Chloride 0 ml 10/25/21 22:00 10/31/21 05:09 Sodium Chloride 0.9 % 10 Ml Syringe IV-PUSH 10/25/22 21:59 Not Given QSHIFT ALY Sodium Chloride 10 ml 10/28/21 08:44 10/28/21 22:35 Sodium Chloride 0.9 % 10 Ml Vial.Pf INJECTION 10/28/22 08:43 10 ml PRN PRN Administration To dilute Pepcid Spironolactone 50 mg 10/31/21 09:00 Spironolactone 50 Mg Tablet PO 10/31/22 08:59 DAILY ALY Tramadol HCl 50 mg 10/25/21 20:04 10/31/21 08:37 Tramadol 50 Mg Tablet PO 04/23/22 20:03 50 mg Q4H PRN Administration Pain Scale 1 - 5 Vitamin D 25 mcg 10/26/21 09:00 10/31/21 08:35 Cholecalciferol 25 Mcg (1,000 Units) Tablet PO 10/26/22 08:59 25 mcg DAILY ALY Administration A&P - Hospitalist Assessment/Plan (1) Displaced intertrochanteric fracture of left femur, initial encounter for closed fracture: (2) Fall from ground level: (3) COVID-19: (4) Hemochromatosis: (5) Cirrhosis: (6) COPD (chronic obstructive pulmonary disease): (7) Diabetes mellitus, type 2: (8) Pancytopenia: (9) Severe protein-calorie malnutrition: (10) Hyponatremia: (11) Encephalopathy due to COVID-19 virus: Plan POD #6 status post short cephalomedullary nail for left intertrochanteric fracture after fall -Heparin subcu for DVT prophylaxis, platelets stable, monitor CBC -Incentive spirometry -Favor scheduled Tylenol, lidocaine patches, and Cryo/Cuff for pain control -PT OT, returning to nursing facility, attempting to get prison services COVID-19 Acute metabolic encephalopathy developed about 3 days after admission Did briefly require supplemental oxygen about 2 days after the surgery. -Denies respiratory symptoms, now saturating normally on room air, did get hallucinations and delirium and hyperglycemia, likely due to the COVID-19 and then also dexamethasone that was briefly used for the COVID-19 -As respiratory status has improved we discontinued both remdesivir and dexamethasone -Reorient as needed, encourage activity up to chair, avoid daytime napping, melatonin nightly -Albuterol as needed, DuoNebs 4 times daily History of cirrhosis and hemochromatosis with chronic pancytopenia -Continue lactulose, rifaximin, spironolactone Anemia. Likely component of acute blood loss from the fracture site itself before it wasfixed and her chronic anemia due to chronic liver disease. -Status post 1 unit PRBCs, hemoglobin 9.4 and then 9.7. monitor CBC Thrombocytopenia. -Likely due to severe liver disease at baseline Type 2 diabetes -detemir twice daily, insulin sliding scale -Linagliptin daily Documented By: Sharath Marques DO [id number] Signed By: <Electronically signed by Sharath Marques, > 10/31/21 1517 [facility] Work Phone: [phone]) 412-380107-30-2022 Progress note Author Sharath Marques [facility] October 30, 2021 6:58pm Note Date/Time October 30, 2021 9:46 am [facility] [address] [place], [place] [id number] Hospitalist Progress Note Signed Patient: Hetal Jasso MR#: [id number] 427 : 1955 Acct:[id number] Age/Sex: 66 / F Adm Date: 2 Loc: Room: [address] [place] [address] Type: ADM IN Attending Dr: Sharath Marques DO Copies to: ~ Date of Service: 10/30/2021 Subjective Subjective Narrative: Patient seen this morning resting in bed. Denies any respiratory complaints. Saturating normally on room air, breathing comfortably. Pain appears more well controlled in the left hip. Does not appear to have required tramadol or oxycodone since 829 yesterday morning. Afebrile. Nursing reports patient was hallucinating overnight. Patient states she saw Zander this morning and that she saw 2 people in the corner of her room. Reportedly not sleeping well. Oriented to self. Refused medications yesterday evening including insulinand lactulose. Hypoglycemic overnight. Did take morning insulin. Exam Physical Exam Vital Signs: Temp Pulse Resp BP Pulse Ox O2 Del Method O2 Flow Rate 97.5 F L 86 18 97/63 L 100 Room Air 2 10/30/21 08:00 10/30/21 08:00 10/30/21 08:00 10/30/21 08:00 10/30/21 08:00 10/30/21 00:25 10/28/21 16:00 Narrative: GENERAL APPEARANCE: Resting in bed, appears comfortable, oriented to self, confused HEAD: Normocephalic, atraumatic. EYES: PERRL, conjunctiva clear THROAT: Mucous membranes pink and moist. CARDIAC: Normal rate. Regular rhythm. LUNGS: Clear to auscultation bilaterally. No accessory muscle use. Respirations non-labored. ABDOMEN: Normoactive bowel sounds. Soft, nondistended, nontender. No guarding, rebound, or rigidity. MSK: Left lower extremity wrapped in Adali bandages, incision sites CDI without erythema. NEURO: PERRL, EOMI, upper extremity strength equal bilaterally, moves toes and ankles equal bilaterally. EXTREMITIES: No pitting edema. Capillary refill <2 seconds. SKIN: Warm and dry. Objective Lab Results CBC & Chem 7: 10/30/21 05:51 10/30/21 05:51 Meds Allergies and Active Meds Allergies bupropion Allergy (Verified 06/04/21 10:54) Unknown Reaction Active Meds: Active Medications Generic Name Dose Route Start Last Admin Trade Name Freq PRN Reason Stop Dose Admin Acetaminophen 650 mg 10/25/21 11:41 10/29/21 15:02 Acetaminophen 325 Mg Tablet PO 10/25/22 11:40 650 mg Q4H PRN Administration Pain Scale 1 - 3 or fever Acetaminophen 325 mg 10/29/21 10:10 10/30/21 08:58 Acetaminophen 325 Mg Tablet PO 10/29/22 10:09 325 mg QID ALY Administration Albuterol/Ipratropium 3 ml 10/25/21 16:00 10/30/21 05:53 Ipratropium/Albuterol 0.5-3 Mg 3 Ml Ampul.Neb INHALATION 10/25/22 15:59 3 ml QID.RESP ALY Administration Ascorbic Acid 500 mg 10/26/21 08:00 10/30/21 08:58 Ascorbic Acid 500 Mg Tablet PO 10/26/22 07:59 500 mg BID.WITH.MEALS ALY Administration Bisacodyl 10 mg 10/25/21 11:41 Bisacodyl 5 Mg Tablet.Dr PO 10/25/22 11:40 DAILY PRN Constipation Bisacodyl 10 mg 10/25/21 11:41 Bisacodyl 10 Mg Supp.Rect RI 10/25/22 11:40 DAILY PRN Constipation Calcium Carbonate 500 mg 10/25/21 22:00 10/30/21 08:58 Calcium Carbonate 500 Mg Tablet PO 10/25/22 21:59 500 mg TID ALY Administration Dextrose 0 gm 10/25/21 11:46 Dextrose 50% In Water 25 Gm/50 Ml Syringe IV-PUSH 10/25/22 11:45 PRN PRN Hypoglycemia Diclofenac Sodium 2 gm 10/25/21 13:48 Diclofenac Sodium 1% Gel 100 Gm Tube TOPICAL 10/25/22 13:47 QID PRN Pain Diphenhydramine HCl 25 mg 10/25/21 11:41 Diphenhydramine 50 Mg/Ml Vial IM 10/25/22 11:40 Q8H PRN Severe Rash or Itching Famotidine 20 mg 10/28/21 09:00 10/30/21 08:58 Famotidine/Pf 20 Mg/2 Ml Vial IV-PUSH 10/28/22 08:59 20 mg Q12HR ALY Administration Furosemide 20 mg 10/26/21 09:00 10/30/21 08:58 Furosemide 20 Mg Tablet PO 10/26/22 08:59 20 mg DAILY ALY Administration Glucagon 1 mg 10/25/21 13:48 Glucagon 1 Mg/Ml Vial SUBCUT Q20M PRN hypoglycemia protocol Glucose 0 gm 10/25/21 11:46 Dextrose 40% Gel 15 Gm Tube PO 10/25/22 11:45 PRN PRN Hypoglycemia Heparin Sodium (Porcine) 5,000 unit 10/27/21 21:00 10/30/21 08:58 Heparin 5,000 Unit/Ml Vial SUBCUT 10/27/22 20:59 5,000 unit Q12HR ALY Administration Magnesium Sulfate 2 gm in 50 mls @ 25 mls/hr 10/25/21 11:41 10/25/21 15:22 Magnesium Sulf 2gm-*Swfi* IV 10/25/22 11:40 Infused DAILY PRN Infusion Magnesium Level < 1.5 Sodium Chloride 500 mls @ 20 mls/hr 10/29/21 10:05 0.9 % Sodium Chloride IV 10/30/21 10:04 PROTOCOL PRN BLOOD TRANSFUSION Insulin Aspart 0 units 10/25/21 12:00 10/30/21 07:57 Insulin Aspart 300 Units/3 Ml Insuln.Pen SUBCUT 10/25/22 11:59 14 units TID.WM.HS ALY Administration Protocol Insulin Detemir 15 units 10/29/21 21:00 10/30/21 09:03 Insulin Detemir 300 Units/3 Ml Insuln.Pen SUBCUT 10/29/22 20:59 15 units BID ALY Administration Lactulose 20 gm 10/25/21 13:48 Lactulose 20 Gm/30 Ml Udc PO 10/25/22 13:47 DAILY PRN Abdominal Distention Lactulose 30 gm 10/27/21 18:00 10/30/21 08:58 Lactulose 20 Gm/30 Ml Udc PO 10/27/22 17:59 30 gm QID ALY Administration Lidocaine 1 patch 10/25/21 13:48 10/26/21 20:16 Lidocaine 4% Adh..Patch TOPICAL 10/25/22 13:47 1 patch BID PRN Administration Pain Linagliptin 5 mg 10/28/21 17:40 10/30/21 08:58 Linagliptin 5 Mg Tablet PO 10/28/22 17:39 5 mg DAILY.WITH.BKFAST ALY Administration Magnesium Oxide 400 mg 10/29/21 10:10 10/30/21 08:57 Magnesium Oxide 400 Mg Tablet PO 10/29/22 10:09 400 mg BID ALY Administration Melatonin 5 mg 10/25/21 22:00 10/30/21 00:18 Melatonin 5 Mg Tablet PO 10/25/22 21:59 5 mg HS ALY Administration Multivitamins 1 tab 10/26/21 09:00 10/30/21 08:58 Multivitamin 1 Tab Tablet PO 10/26/22 08:59 1 tab DAILY ALY Administration Naloxone HCl 0.4 mg 10/25/21 20:04 Naloxone Hcl 0.4 Mg/Ml Vial IV-PUSH 10/25/22 20:03 Q2M PRN Opioid Reversal Nitroglycerin 0.4 mg 10/25/21 11:41 Nitroglycerin 0.4 Mg Tab.Subl SUBLINGUAL 10/25/22 11:40 Q5M PRN Chest Pain Ondansetron HCl 8 mg 10/25/21 20:04 10/25/21 21:21 Ondansetron Odt 4 Mg Tab.Rapdis PO 10/25/22 20:03 8 mg TID PRN Administration Nausea Oxycodone HCl 2.5 mg 10/29/21 10:09 Oxycodone Ir 5 Mg Tablet PO Q4HR PRN Breakthrough Pain Potassium Chloride 20 meq 10/25/21 11:41 Potassium Chloride Er 20 Meq Tab.Er.Prt PO 10/25/22 11:40 DAILY PRN Hypokalemia Potassium Chloride 40 meq 10/25/21 11:41 Potassium Chloride Er 20 Meq Tab.Er.Prt PO 10/25/22 11:40 DAILY PRN Hypokalemia Potassium Chloride 20 meq 10/26/21 09:00 10/30/21 08:58 Potassium Chloride Er 20 Meq Tab.Er.Prt PO 10/26/22 08:59 20 meq DAILY ALY Administration Prochlorperazine Maleate 10 mg 10/25/21 20:04 Prochlorperazine Maleate 5 Mg Tablet PO 10/25/22 20:03 Q6H PRN Nausea Repaglinide 1 mg 10/29/21 11:30 10/30/21 08:57 Repaglinide 1 Mg Tablet PO 10/29/22 11:29 1 mg TID.AC ALY Administration Rifaximin 550 mg 10/25/21 21:00 10/30/21 08:57 Rifaximin 550 Mg Tablet PO 10/25/22 20:59 550 mg BID ALY Administration Sodium Chloride 0 ml 10/25/21 11:41 10/29/21 15:01 Sodium Chloride 0.9 % 10 Ml Syringe IV-PUSH 10/25/22 11:40 10 ml PRN PRN Administration Flush Sodium Chloride 0 ml 10/25/21 16:08 10/26/21 08:10 Sodium Chloride 0.9 % 10 Ml Syringe IV-PUSH 10/25/22 16:07 10 ml PRN PRN Administration Flush Sodium Chloride 0 ml 10/25/21 22:00 10/30/21 08:02 Sodium Chloride 0.9 % 10 Ml Syringe IV-PUSH 10/25/22 21:59 10 ml QSHIFT ALY Administration Sodium Chloride 10 ml 10/28/21 08:44 10/28/21 22:35 Sodium Chloride 0.9 % 10 Ml Vial.Pf INJECTION 10/28/22 08:43 10 ml PRN PRN Administration To dilute Pepcid Spironolactone 25 mg 10/26/21 09:00 10/30/21 08:57 Spironolactone 25 Mg Tablet PO 10/26/22 08:59 25 mg DAILY ALY Administration Tramadol HCl 50 mg 10/25/21 20:04 10/29/21 05:57 Tramadol 50 Mg Tablet PO 04/23/22 20:03 50 mg Q4H PRN Administration Pain Scale 1 - 5 Vitamin D 25 mcg 10/26/21 09:00 10/30/21 08:57 Cholecalciferol 25 Mcg (1,000 Units) Tablet PO 10/26/22 08:59 25 mcg DAILY ALY Administration A&P - Hospitalist Assessment/Plan (1) Displaced intertrochanteric fracture of left femur, initial encounter for closed fracture: (2) Fall from ground level: (3) COVID-19: (4) Hemochromatosis: (5) Cirrhosis: (6) COPD (chronic obstructive pulmonary disease): (7) Diabetes mellitus, type 2: (8) Pancytopenia: (9) Severe protein-calorie malnutrition: (10) Hyponatremia: (11) Encephalopathy due to COVID-19 virus: Plan POD #5 status post short cephalomedullary nail for left intertrochanteric fracture after fall -Heparin subcu for DVT prophylaxis, platelets stable, monitor CBC -Incentive spirometry -Favor Tylenol, lidocaine patches, and Cryo/Cuff -PT OT, returning to nursing facility, attempting to get prison services COVID-19 Acute metabolic encephalopathy -Denies respiratory symptoms, saturating normally on room air, worsening confusion and visual hallucinations yesterday evening and this morning, likely multifactorial with COVID-19, steroids, disrupted sleep/environmental, refusing medications including rifaximin, lactulose, insulin so potentially some hyperglycemia and hepatic encephalopathy contributing. -As respiratory status has improved we will discontinue remdesivir and dexamethasone -Reorient as needed, encourage activity up to chair, avoid daytime napping, melatonin nightly -Albuterol as needed, DuoNebs 4 times daily History of cirrhosis and hemochromatosis with chronic pancytopenia -Continue lactulose, rifaximin, spironolactone -Status post 1 unit PRBCs, hemoglobin 9.4, monitor CBC Type 2 diabetes -detemir twice daily, insulin sliding scale -Linagliptin daily -Repaglinide 2 mg p.o. 3 times daily with meals ++++ ++++ I personally examined the patient on this day of the encounter. I reviewed the relevant history, performed the tran elements of the physical examination, and coordinated the plan of care and I confirmed the resident's medical documentation as written. The patient's COVID appearance seems to be much better doing well with oxygenation and high percent oxygenation on room air. However she continues to be encephalopathic. At first I think the COVID was causing encephalopathy but now I think that she has a hyperactive delirium and encephalopathy due to the corticosteroids. States she is doing well Remdesevir will be stopped. Also dexamethasone will bestopped. I expect her hyperglycemia to get better in about 24 hours. Documented By: Barbi Jimenez DO, RES 10/30/21 0937 Signed By: <Electronically signed by DO MINH Jimenez> 10/30/21 1125 <Electronically signed by Sharath Marques DO> 10/30/21 [address] [facility] Work Phone: [phone]) 148-587907-29-2022 Progress note Author Sharath Marques [facility] October 29, 2021 5:34pm Note Date/Time October 29, 2021 9:22 am [facility] [address] [place] [address] Hospitalist Progress Note Signed Patient: Hetla Jasso#: [id number] : 1955 Acct:[id number] Age/Sex: 66 / F Adm Date: 2 Loc: 3T Room: [address] [place] [address] Type: ADM IN Attending Dr: Sharath Marques DO Copies to: ~ Date of Service: 10/29/2021 Subjective Subjective Narrative: Patient seen this morning resting in bed. Some hyperglycemia again overnight after starting dexamethasone yesterday, diabetic meds adjusted. Patient reporting she feels okay this morning. Reports some improvement in left hip pain compared to yesterday. Denies shortness of breath currently. Back on room air this morning. Denies fevers, chills, cough, sputum production, nausea, vomiting, or abdominal pain. Exam Physical Exam Vital Signs: Temp Pulse Resp BP Pulse Ox O2 Del Method O2 Flow Rate 97.5 F L 84 18 102/65 91 L Room Air 2 10/29/21 08:00 10/29/21 08:58 10/29/21 08:58 10/29/21 08:00 10/29/21 08:00 10/29/21 08:00 10/28/21 16:00 Narrative: GENERAL APPEARANCE: Resting in bed, alert, answers questions appropriately, appears comfortable HEAD: Normocephalic, atraumatic. EYES: PERRL, conjunctiva clear THROAT: Mucous membranes pink and moist. CARDIAC: Normal rate. Regular rhythm. LUNGS: Clear to auscultation bilaterally. No accessory muscle use. Respirations non-labored. ABDOMEN: Normoactive bowel sounds. Soft, nondistended, nontender. No guarding, rebound, or rigidity. MSK: Left lower extremity wrapped in Daali bandages, incision sites with dressingsCDI. NEURO: PERRL, EOMI, upper extremity strength equal bilaterally, moves toes and ankles equal bilaterally. EXTREMITIES: No pitting edema. Capillary refill <2 seconds. SKIN: Warm and dry. Objective Lab Results CBC & Chem 7: 10/29/21 06:12 10/29/21 06:12 Meds Allergies and Active Meds Allergies bupropion Allergy (Verified 06/04/21 10:54) Unknown Reaction Active Meds: Active Medications Generic Name Dose Route Start Last Admin Trade Name Freq PRN Reason Stop Dose Admin Acetaminophen 650 mg 10/25/21 11:41 10/26/21 20:14 Acetaminophen 325 Mg Tablet PO 10/25/22 11:40 650 mg Q4H PRN Administration Pain Scale 1 - 3 or fever Albuterol/Ipratropium 3 ml 10/25/21 16:00 10/29/21 08:49 Ipratropium/Albuterol 0.5-3 Mg 3 Ml Ampul.Neb INHALATION 10/25/22 15:59 3 ml QID.RESP ALY Administration Ascorbic Acid 500 mg 10/26/21 08:00 10/29/21 08:39 Ascorbic Acid 500 Mg Tablet PO 10/26/22 07:59 500 mg BID.WITH.MEALS ALY Administration Bisacodyl 10 mg 10/25/21 11:41 Bisacodyl 5 Mg Tablet.Dr PO 10/25/22 11:40 DAILY PRN Constipation Bisacodyl 10 mg 10/25/21 11:41 Bisacodyl 10 Mg Supp.Rect RI 10/25/22 11:40 DAILY PRN Constipation Calcium Carbonate 500 mg 10/25/21 22:00 10/29/21 08:39 Calcium Carbonate 500 Mg Tablet PO 10/25/22 21:59 500 mg TID ALY Administration Dexamethasone Sodium Phosphate 6 mg 10/28/21 08:40 10/29/21 08:40 Dexamethasone Sod Phosphate 4 Mg/Ml Vial IV-PUSH 11/05/21 09:01 6 mg DAILY ALY Administration Dextrose 0 gm 10/25/21 11:46 Dextrose 50% In Water 25 Gm/50 Ml Syringe IV-PUSH 10/25/22 11:45 PRN PRN Hypoglycemia Diclofenac Sodium 2 gm 10/25/21 13:48 Diclofenac Sodium 1% Gel 100 Gm Tube TOPICAL 10/25/22 13:47 QID PRN Pain Diphenhydramine HCl 25 mg 10/25/21 11:41 Diphenhydramine 50 Mg/Ml Vial IM 10/25/22 11:40 Q8H PRN Severe Rash or Itching Famotidine 20 mg 10/28/21 09:00 10/29/21 08:39 Famotidine/Pf 20 Mg/2 Ml Vial IV-PUSH 10/28/22 08:59 20 mg Q12HR ALY Administration Furosemide 20 mg 10/26/21 09:00 10/29/21 08:39 Furosemide 20 Mg Tablet PO 10/26/22 08:59 20 mg DAILY ALY Administration Glucagon 1 mg 10/25/21 13:48 Glucagon 1 Mg/Ml Vial SUBCUT Q20M PRN hypoglycemia protocol Glucose 0 gm 10/25/21 11:46 Dextrose 40% Gel 15 Gm Tube PO 10/25/22 11:45 PRN PRN Hypoglycemia Heparin Sodium (Porcine) 5,000 unit 10/27/21 21:00 10/29/21 08:40 Heparin 5,000 Unit/Ml Vial SUBCUT 10/27/22 20:59 5,000 unit Q12HR ALY Administration Magnesium Sulfate 2 gm in 50 mls @ 25 mls/hr 10/25/21 11:41 10/25/21 15:22 Magnesium Sulf 2gm-*Swfi* IV 10/25/22 11:40 Infused DAILY PRN Infusion Magnesium Level < 1.5 Remdesivir 100 mg/ Dextrose 250 mls @ 250 mls/hr 10/29/21 09:00 IV 11/01/21 09:59 Q24H ALY Insulin Aspart 0 units 10/25/21 12:00 10/29/21 08:40 Insulin Aspart 300 Units/3 Ml Insuln.Pen SUBCUT 10/25/22 11:59 Not Given TID.WM.HS ALY Protocol Insulin Detemir 25 units 10/28/21 21:00 10/29/21 08:40 Insulin Detemir 300 Units/3 Ml Insuln.Pen SUBCUT 10/28/22 20:59 25 units BID ALY Administration Lactulose 20 gm 10/25/21 13:48 Lactulose 20 Gm/30 Ml Udc PO 10/25/22 13:47 DAILY PRN Abdominal Distention Lactulose 30 gm 10/27/21 18:00 10/29/21 08:38 Lactulose 20 Gm/30 Ml Udc PO 10/27/22 17:59 30 gm QID ALY Administration Lidocaine 1 patch 10/25/21 13:48 10/26/21 20:16 Lidocaine 4% Adh..Patch TOPICAL 10/25/22 13:47 1 patch BID PRN Administration Pain Linagliptin 5 mg 10/28/21 17:40 10/29/21 08:39 Linagliptin 5 Mg Tablet PO 10/28/22 17:39 5 mg DAILY.WITH.BKFAST ALY Administration Melatonin 5 mg 10/25/21 22:00 10/28/21 21:57 Melatonin 5 Mg Tablet PO 10/25/22 21:59 5 mg HS ALY Administration Multivitamins 1 tab 10/26/21 09:00 10/29/21 08:39 Multivitamin 1 Tab Tablet PO 10/26/22 08:59 1 tab DAILY ALY Administration Naloxone HCl 0.4 mg 10/25/21 20:04 Naloxone Hcl 0.4 Mg/Ml Vial IV-PUSH 10/25/22 20:03 Q2M PRN Opioid Reversal Nitroglycerin 0.4 mg 10/25/21 11:41 Nitroglycerin 0.4 Mg Tab.Subl SUBLINGUAL 10/25/22 11:40 Q5M PRN Chest Pain Ondansetron HCl 8 mg 10/25/21 20:04 10/25/21 21:21 Ondansetron Odt 4 Mg Tab.Rapdis PO 10/25/22 20:03 8 mg TID PRN Administration Nausea Oxycodone HCl 5 mg 10/25/21 20:04 10/29/21 08:39 Oxycodone Ir 5 Mg Tablet PO 5 mg Q4HR PRN Administration Pain Scale 6 - 10 Phytonadione 10 mg 10/26/21 07:50 10/29/21 08:38 Phytonadione 5 Mg Tablet PO 10/26/22 07:49 10 mg QAM ALY Administration Potassium Chloride 20 meq 10/25/21 11:41 Potassium Chloride Er 20 Meq Tab.Er.Prt PO 10/25/22 11:40 DAILY PRN Hypokalemia Potassium Chloride 40 meq 10/25/21 11:41 Potassium Chloride Er 20 Meq Tab.Er.Prt PO 10/25/22 11:40 DAILY PRN Hypokalemia Potassium Chloride 20 meq 10/26/21 09:00 10/29/21 08:39 Potassium Chloride Er 20 Meq Tab.Er.Prt PO 10/26/22 08:59 20 meq DAILY ALY Administration Prochlorperazine Maleate 10 mg 10/25/21 20:04 Prochlorperazine Maleate 5 Mg Tablet PO 10/25/22 20:03 Q6H PRN Nausea Repaglinide 2 mg 10/28/21 17:45 10/29/21 08:38 Repaglinide 1 Mg Tablet PO 10/28/22 17:44 Not Given TID.AC ALY Rifaximin 550 mg 10/25/21 21:00 10/29/21 08:39 Rifaximin 550 Mg Tablet PO 10/25/22 20:59 550 mg BID ALY Administration Sodium Chloride 0 ml 10/25/21 11:41 10/27/21 04:10 Sodium Chloride 0.9 % 10 Ml Syringe IV-PUSH 10/25/22 11:40 10 ml PRN PRN Administration Flush Sodium Chloride 0 ml 10/25/21 16:08 10/26/21 08:10 Sodium Chloride 0.9 % 10 Ml Syringe IV-PUSH 10/25/22 16:07 10 ml PRN PRN Administration Flush Sodium Chloride 0 ml 10/25/21 22:00 10/29/21 05:09 Sodium Chloride 0.9 % 10 Ml Syringe IV-PUSH 10/25/22 21:59 10 ml QSHIFT ALY Administration Sodium Chloride 10 ml 10/28/21 09:45 10/28/21 09:13 Sodium Chloride 0.9 % 10 Ml Syringe IV-PUSH 11/07/21 09:44 10 ml Q24H ALY Administration Sodium Chloride 10 ml 10/28/21 08:44 10/28/21 22:35 Sodium Chloride 0.9 % 10 Ml Vial.Pf INJECTION 10/28/22 08:43 10 ml PRN PRN Administration To dilute Pepcid Spironolactone 25 mg 10/26/21 09:00 10/29/21 08:39 Spironolactone 25 Mg Tablet PO 10/26/22 08:59 25 mg DAILY ALY Administration Tramadol HCl 50 mg 10/25/21 20:04 10/29/21 05:57 Tramadol 50 Mg Tablet PO 04/23/22 20:03 50 mg Q4H PRN Administration Pain Scale 1 - 5 Vitamin D 25 mcg 10/26/21 09:00 10/29/21 08:39 Cholecalciferol 25 Mcg (1,000 Units) Tablet PO 10/26/22 08:59 25 mcg DAILY ALY Administration A&P - Hospitalist Assessment/Plan (1) Displaced intertrochanteric fracture of left femur, initial encounter for closed fracture: (2) Fall from ground level: (3) COVID-19: (4) Hemochromatosis: (5) Cirrhosis: (6) COPD (chronic obstructive pulmonary disease): (7) Diabetes mellitus, type 2: (8) Pancytopenia: (9) Severe protein-calorie malnutrition: (10) Hyponatremia: Plan POD #4 status post short cephalomedullary nail for left intertrochanteric fracture after fall -Heparin subcu for DVT prophylaxis, platelets stable, monitor CBC -Incentive spirometry -PT OT, in process of SNF placement COVID-19 -More alert today. Denies feeling short of breath at this time. Back on room air at 91 to 93% this morning. Respirations nonlabored. -Continue remdesivir, LFTs stable, hepatic panel daily -Continue dexamethasone, Pepcid -Albuterol as needed, DuoNebs 4 times daily History of cirrhosis and hemochromatosis with chronic pancytopenia -Continue lactulose, rifaximin, spironolactone -Hb down to 7.9 since surgery, will transfuse 1 unit pRBCs, monitor CBC Type 2 diabetes -25 units detemir twice daily, insulin sliding scale -Linagliptin daily -Repaglinide 2 mg p.o. 3 times daily with meals ++++ ++++ I personally examined the patient on this day of the encounter. I reviewed the relevant history, performed the tran elements of the physical examination, and coordinated the plan of care and I confirmed the resident's medical documentation as written. Today the patient's hemoglobin did decline down to 7.9. 1 unit of packed red blood cells is ordered. She does have a history of hemochromatosis and requiredphlebotomies in the past. But I think this anemia is likely due to oozing of blood from the femur fracture before it could be repaired. This is fairly typical for her type of injury. Yesterday the patient required supplemental oxygen and up to 2 L nasal cannula. Because of her mental status I cannot ascertain exactly when her COVID symptoms may have started. Therefore she was not a candidate to be treated with monoclonal antibodies or PAXLOVID. Yesterday the patient was initiated on remdesivir and dexamethasone because of the use of supplemental oxygen. Today she does appear to be doing better and has been put back on room air. If she continues to remain on room air overnight and again tomorrow we will stop Remdesevir and stop dexamethasone. Today the insurance company required some type of [id number] phone call. In brief: this was one of the strangest peer to peer phone calls I have ever had. The physician was self described as an internal medicine physician named Micheline Whiting. (My spelling may be off a little bit. There was a language barrier.) They said that they only had therapy notes up until October 26 the requested new therapy notes. There seemed to be a lot of discussion [id number] about what date the patient was COVID-positive (which of course happened before she arrived at this facility) and how long she would need to be in isolation and there was some description on their part of her being wheelchair-bound at the prison facility, and they insinuated that therefore there was no need for any skilled treatment or skilled therapies at all. I pointed out that the orthopedic surgeon documented that the patient walked with a cane and assistance of a walker at her long-term care facility on his consult note. I think that this [id number] was just looking for any reason to not even begin to authorize a prison facility and it ended in somewhat of a stalemate and they just requested new therapy notes to be sent to them by noon, which was only 2 hours from the time that I was on the phone with them. From my point of view her care is not any different from any other typical hip fracture patient and she would clearly benefit from skilled physicaltherapy and Occupational Therapy in a skilled level of care in order to bounce back from the injury and surgery as fast as possible and obtain the best level of function. I pointed out to this [id number] physician on the phone that this patient did so well on postoperative day 1, in the morning sitting upright out of a chair feeding herself and with minimal postoperative pain and I actually recommended that she go to the [address] [place] [address] acute inpatient redilatation unit. The COVID is fortunately really not a big issue and would not be a reasonto deny her skilled care would actually be an additive reason where she would benefit from skilled care. Medically from my point of view once she is proven to not require supplemental oxygen then no additional treatment for her COVID would be needed and certainly prison facilities are taking care of COVID patients all the time anyway so that should not delay her [id number] and getting to the right level skilled care with PT and OT either. Documented By: Barbi Jimenez DO, RES 10/29/21 0911 Signed By: <Electronically signed by DO MINH Jimenez> 10/29/21 1149 <Electronically signed by Sharath Marques DO> 10/29/21 [address] [facility] Work Phone: [phone] 876-731807-28-2022 Progress note Author Sharath Marques [facility] October 28, 2021 3:46pm Note Date/Time October 28, 2021 9:28 am [facility] [address] [place] [address] Hospitalist Progress Note Signed with Addenda Patient: Hetal Jasso MR#: [id number] : 1955 Acct:[id number] Age/Sex: 66 / F Adm Date: 2 Loc: Room: [address] [place] [address] Type: ADM IN Attending Dr: Sharath Marques DO Copies to: ~ ADDENDUM1 I personally examined the patient on this day of the encounter. I reviewed the relevant history, performed the tran elements of the physical examination, and coordinated the plan of care and I confirmed the resident's medical documentation as written. Originally the patient seem to have minimal symptoms of COVID-19 but now she is more encephalopathic pleasantly confused and having some delirium. She also has progressed to needing 2 L oxygen by nasal cannula. Therefore we will start Remdesevir. We will also start dexamethasone. We will monitor liver function tests daily while using Remdesevir. We will add IV Pepcid while using dexamethasone for GI prophylaxis. Continue aggressive efforts at physical therapy and mobility and pulmonary clearance maneuvers. Addendum Documented By: Sharath Marques DO 10/28/21 1546 Addendum Signed By: <Electronically signed by Sharath Marques DO> 10/28/21 1546 Date of Service: 10/28/2021 Subjective Subjective Narrative: Patient seen this morning resting in bed. Still little drowsy this morning but appears more alert and conversive after breakfast. States she feels lousy complaining of body aches. Placed on nasal cannula by respiratory therapy this morning when her O2 sats dropped to 87%. Patient states she feels a little short of breath but denies frequent cough or sputum production or chest pain. Denies nausea or vomiting. Exam Physical Exam Vital Signs: Temp Pulse Resp BP Pulse Ox O2 Del Method O2 Flow Rate 97.6 F 85 18 100/64 96 Room Air 2 10/28/21 08:41 10/28/21 08:41 10/28/21 08:41 10/28/21 08:41 10/28/21 08:41 10/28/21 08:41 10/28/21 07:39 Narrative: GENERAL APPEARANCE: Resting in bed, alert, answers questions appropriately. HEAD: Normocephalic, atraumatic. EYES: PERRL THROAT: Mucous membranes pink and moist. CARDIAC: Normal rate. Regular rhythm. LUNGS: Clear to auscultation bilaterally. No accessory muscle use. Respirations non-labored. ABDOMEN: Normoactive bowel sounds. Soft, nondistended, nontender. No guarding, rebound, or rigidity. MSK: Left lower extremity wrapped in Adali bandages, incision sites with dressingsCDI. NEURO: PERRL, EOMI, upper extremity strength equal bilaterally, moves toes and ankles equal bilaterally. EXTREMITIES: No pitting edema. Capillary refill <2 seconds. SKIN: Warm and dry. Objective Lab Results CBC & Chem 7: 10/28/21 06:32 10/28/21 06:32 Microbiology Results Microbiology 10/25/21 14:10 [place] Urine Culture - Final No Growth 2 Days Meds Allergies and Active Meds Allergies bupropion Allergy (Verified 06/04/21 10:54) Unknown Reaction Active Meds: Active Medications Generic Name Dose Route Start Last Admin Trade Name Freq PRN Reason Stop Dose Admin Acetaminophen 650 mg 10/25/21 11:41 10/26/21 20:14 Acetaminophen 325 Mg Tablet PO 10/25/22 11:40 650 mg Q4H PRN Administration Pain Scale 1 - 3 or fever Albuterol/Ipratropium 3 ml 10/25/21 16:00 10/28/21 07:38 Ipratropium/Albuterol 0.5-3 Mg 3 Ml Ampul.Neb INHALATION 10/25/22 15:59 3 ml QID.RESP ALY Administration Ascorbic Acid 500 mg 10/26/21 08:00 10/28/21 08:48 Ascorbic Acid 500 Mg Tablet PO 10/26/22 07:59 500 mg BID.WITH.MEALS ALY Administration Bisacodyl 10 mg 10/25/21 11:41 Bisacodyl 5 Mg Tablet.Dr PO 10/25/22 11:40 DAILY PRN Constipation Bisacodyl 10 mg 10/25/21 11:41 Bisacodyl 10 Mg Supp.Rect RI 10/25/22 11:40 DAILY PRN Constipation Calcium Carbonate 500 mg 10/25/21 22:00 10/28/21 08:48 Calcium Carbonate 500 Mg Tablet PO 10/25/22 21:59 500 mg TID ALY Administration Dexamethasone Sodium Phosphate 6 mg 10/28/21 08:40 10/28/21 09:11 Dexamethasone Sod Phosphate 4 Mg/Ml Vial IV-PUSH 11/05/21 09:01 6 mg DAILY ALY Administration Dextrose 0 gm 10/25/21 11:46 Dextrose 50% In Water 25 Gm/50 Ml Syringe IV-PUSH 10/25/22 11:45 PRN PRN Hypoglycemia Diclofenac Sodium 2 gm 10/25/21 13:48 Diclofenac Sodium 1% Gel 100 Gm Tube TOPICAL 10/25/22 13:47 QID PRN Pain Diphenhydramine HCl 25 mg 10/25/21 11:41 Diphenhydramine 50 Mg/Ml Vial IM 10/25/22 11:40 Q8H PRN Severe Rash or Itching Famotidine 20 mg 10/28/21 09:00 10/28/21 09:06 Famotidine/Pf 20 Mg/2 Ml Vial IV-PUSH 10/28/22 08:59 20 mg Q12HR ALY Administration Furosemide 20 mg 10/26/21 09:00 10/28/21 08:53 Furosemide 20 Mg Tablet PO 10/26/22 08:59 20 mg DAILY ALY Administration Glucagon 1 mg 10/25/21 13:48 Glucagon 1 Mg/Ml Vial SUBCUT Q20M PRN hypoglycemia protocol Glucose 0 gm 10/25/21 11:46 Dextrose 40% Gel 15 Gm Tube PO 10/25/22 11:45 PRN PRN Hypoglycemia Heparin Sodium (Porcine) 5,000 unit 10/27/21 21:00 10/28/21 08:49 Heparin 5,000 Unit/Ml Vial SUBCUT 10/27/22 20:59 5,000 unit Q12HR ALY Administration Magnesium Sulfate 2 gm in 50 mls @ 25 mls/hr 10/25/21 11:41 10/25/21 15:22 Magnesium Sulf 2gm-*Swfi* IV 10/25/22 11:40 Infused DAILY PRN Infusion Magnesium Level < 1.5 Remdesivir 200 mg/ Dextrose 250 mls @ 250 mls/hr 10/28/21 09:00 IV 10/28/21 09:59 ONCE ONE Remdesivir 100 mg/ Dextrose 250 mls @ 250 mls/hr 10/29/21 09:00 IV 11/01/21 09:59 Q24H ALY Insulin Aspart 0 units 10/25/21 12:00 10/28/21 09:04 Insulin Aspart 300 Units/3 Ml Insuln.Pen SUBCUT 10/25/22 11:59 5 units TID.WM.HS ALY Administration Protocol Insulin Detemir 10 units 10/27/21 21:00 10/28/21 09:10 Insulin Detemir 300 Units/3 Ml Insuln.Pen SUBCUT 10/27/22 20:59 10 units BID ALY Administration Lactulose 20 gm 10/25/21 13:48 Lactulose 20 Gm/30 Ml Udc PO 10/25/22 13:47 DAILY PRN Abdominal Distention Lactulose 30 gm 10/27/21 18:00 10/28/21 08:49 Lactulose 20 Gm/30 Ml Udc PO 10/27/22 17:59 30 gm QID ALY Administration Lidocaine 1 patch 10/25/21 13:48 10/26/21 20:16 Lidocaine 4% Adh..Patch TOPICAL 10/25/22 13:47 1 patch BID PRN Administration Pain Melatonin 5 mg 10/25/21 22:00 10/27/21 21:27 Melatonin 5 Mg Tablet PO 10/25/22 21:59 5 mg HS ALY Administration Multivitamins 1 tab 10/26/21 09:00 10/28/21 08:48 Multivitamin 1 Tab Tablet PO 10/26/22 08:59 1 tab DAILY ALY Administration Naloxone HCl 0.4 mg 10/25/21 20:04 Naloxone Hcl 0.4 Mg/Ml Vial IV-PUSH 10/25/22 20:03 Q2M PRN Opioid Reversal Nitroglycerin 0.4 mg 10/25/21 11:41 Nitroglycerin 0.4 Mg Tab.Subl SUBLINGUAL 10/25/22 11:40 Q5M PRN Chest Pain Ondansetron HCl 8 mg 10/25/21 20:04 10/25/21 21:21 Ondansetron Odt 4 Mg Tab.Rapdis PO 10/25/22 20:03 8 mg TID PRN Administration Nausea Oxycodone HCl 5 mg 10/25/21 20:04 10/28/21 06:56 Oxycodone Ir 5 Mg Tablet PO 5 mg Q4HR PRN Administration Pain Scale 6 - 10 Phytonadione 10 mg 10/26/21 07:50 10/28/21 08:48 Phytonadione 5 Mg Tablet PO 10/26/22 07:49 10 mg QAM ALY Administration Potassium Chloride 20 meq 10/25/21 11:41 Potassium Chloride Er 20 Meq Tab.Er.Prt PO 10/25/22 11:40 DAILY PRN Hypokalemia Potassium Chloride 40 meq 10/25/21 11:41 Potassium Chloride Er 20 Meq Tab.Er.Prt PO 10/25/22 11:40 DAILY PRN Hypokalemia Potassium Chloride 20 meq 10/26/21 09:00 10/28/21 08:48 Potassium Chloride Er 20 Meq Tab.Er.Prt PO 10/26/22 08:59 20 meq DAILY ALY Administration Prochlorperazine Maleate 10 mg 10/25/21 20:04 Prochlorperazine Maleate 5 Mg Tablet PO 10/25/22 20:03 Q6H PRN Nausea Rifaximin 550 mg 10/25/21 21:00 10/28/21 08:49 Rifaximin 550 Mg Tablet PO 10/25/22 20:59 550 mg BID ALY Administration Sodium Chloride 0 ml 10/25/21 11:41 10/27/21 04:10 Sodium Chloride 0.9 % 10 Ml Syringe IV-PUSH 10/25/22 11:40 10 ml PRN PRN Administration Flush Sodium Chloride 0 ml 10/25/21 16:08 10/26/21 08:10 Sodium Chloride 0.9 % 10 Ml Syringe IV-PUSH 10/25/22 16:07 10 ml PRN PRN Administration Flush Sodium Chloride 0 ml 10/25/21 22:00 10/28/21 05:30 Sodium Chloride 0.9 % 10 Ml Syringe IV-PUSH 10/25/22 21:59 10 ml QSHIFT ALY Administration Sodium Chloride 10 ml 10/28/21 09:45 10/28/21 09:13 Sodium Chloride 0.9 % 10 Ml Syringe IV-PUSH 11/07/21 09:44 10 ml Q24H ALY Administration Sodium Chloride 10 ml 10/28/21 08:44 Sodium Chloride 0.9 % 10 Ml Vial.Pf INJECTION 10/28/22 08:43 PRN PRN To dilute Pepcid Spironolactone 25 mg 10/26/21 09:00 10/28/21 08:48 Spironolactone 25 Mg Tablet PO 10/26/22 08:59 25 mg DAILY ALY Administration Tramadol HCl 50 mg 10/25/21 20:04 10/28/21 09:10 Tramadol 50 Mg Tablet PO 04/23/22 20:03 50 mg Q4H PRN Administration Pain Scale 1 - 5 Vitamin D 25 mcg 10/26/21 09:00 10/28/21 08:48 Cholecalciferol 25 Mcg (1,000 Units) Tablet PO 10/26/22 08:59 25 mcg DAILY ALY Administration A&P - Hospitalist Assessment/Plan (1) Displaced intertrochanteric fracture of left femur, initial encounter for closed fracture: (2) Fall from ground level: (3) COVID-19: (4) Hemochromatosis: (5) Cirrhosis: (6) COPD (chronic obstructive pulmonary disease): (7) Diabetes mellitus, type 2: (8) Pancytopenia: (9) Severe protein-calorie malnutrition: (10) Hyponatremia: (11) Encephalopathy due to COVID-19 virus: Plan POD #3 status post short cephalomedullary nail for left intertrochanteric fracture after fall -Management per orthopedic surgery -Heparin 5000 units SC BID started yesterday for DVT prophylaxis, monitor platelets -PT OT, in process of SNF precert -Incentive spirometry COVID-19 -Suspect acute encephalopathy secondary to combination of COVID-19 and opiates in the setting of cirrhosis. Appears more alert after breakfast this morning. Reported body aches and headaches. Seldomly with cough. No sputum production. Lungs clear to auscultation. Respirations nonlabored. On 2 L nasal cannula. -CT head yesterday negative for any acute process, Reports diffuse age-related cortical atrophy. -Requiring O2 supplementation, reporting malaise, body aches, suspect related toCOVID-19 -Start remdesivir, monitor LFTs -Start dexamethasone History of cirrhosis and hemochromatosis with chronic pancytopenia -Hemoglobin 8.0, monitor CBC, if continues to drop below 8 may consider transfusion, Type 2 diabetes -10 units of long acting twice daily, insulin sliding scale -Will intensify insulin sliding scale and add NPH insulin due to hyperglycemia due to the corticosteroids -We will add linagliptin for diabetes control as well. Documented By: Barbi Jimenez DO, RES 10/28/21 0919 Signed By: <Electronically signed by RES Barbi Jimenez> 10/28/21 1104 <Electronically signed by Sharath Marques DO> 10/28/21 1544 [facility] Work Phone: [phone]) 327-722107-27-2022 Progress note Author Sharath Marques [facility] October 27, 2021 8:42pm Note Date/Time October 27, 2021 2:32 pm [facility] [address] [place] [address] Hospitalist Progress Note Signed Patient: Hetal Jasos MR#: [id number] : 1955 Acct:[id number] Age/Sex: 66 / F Adm Date: 2 Loc: Room: [address] [place] [address] Type: ADM IN Attending Dr: Sharath Marques DO Copies to: ~ Date of Service: 10/27/2021 Subjective Subjective Narrative: Patient seen this afternoon, patient sitting in a chair having eaten part of herlunch, when asked how she was feeling patient stated she felt lousy. When askedspecifically why she stated she had a headache. Patient appeared a bit drowsy and was slow to answer questions. Indicated her temples bilaterally as locationof the headache. Stated it started this morning and worsened over the course ofthe day. Stated she had a headache yesterday too. Stated her left hip hurt. Stated the hip pain was the same as yesterday. Would not specify any other symptoms just stating she does not feel well. States her body hurts all over ingeneral. Denies shortness of breath. Blood sugar was checked at that time and was 181. Blood pressure 90s over 50s similar to earlier in the morning. Not tachycardic. Saturating mid 90s on room air. Exam Physical Exam Vital Signs: Temp Pulse Resp BP Pulse Ox O2 Del Method O2 Flow Rate 98.0 F 80 20 99/56 L 95 Room Air 2 10/27/21 12:55 10/27/21 12:55 10/27/21 12:55 10/27/21 12:55 10/27/21 12:55 10/27/21 12:55 10/26/21 04:01 Narrative: GENERAL APPEARANCE: Alert, tired appearing, slow to answer questions HEAD: Normocephalic, atraumatic. EYES: PERRL THROAT: Mucous membranes pink and moist. NECK: No midline spinal tenderness CARDIAC: Normal rate. Regular rhythm. LUNGS: Clear to auscultation bilaterally. No accessory muscle use. Respirations non-labored. ABDOMEN: Normoactive bowel sounds. Soft, nondistended, nontender. No guarding, rebound, or rigidity. MSK: Left lower extremity wrapped in Adali bandages, dressings CDI. NEURO: PERRL, EOMI, no facial droop, upper extremity strength 5 out of 5 bilaterally, moves toes and ankles equal bilaterally. Appears drowsy, awakens easily to voice, answers questions but sometimes has to be prompted a couple times to answer EXTREMITIES: No pitting edema. Capillary refill <2 seconds. SKIN: Warm and dry. Objective Lab Results CBC & Chem 7: 10/27/21 06:36 10/27/21 06:36 Microbiology Results Microbiology 10/25/21 14:10 [place] Urine Culture - Final No Growth 2 Days Meds Allergies and Active Meds Allergies bupropion Allergy (Verified 06/04/21 10:54) Unknown Reaction Active Meds: Active Medications Generic Name Dose Route Start Last Admin Trade Name David PRN Reason Stop Dose Admin Acetaminophen 650 mg 10/25/21 11:41 10/26/21 20:14 Acetaminophen 325 Mg Tablet PO 10/25/22 11:40 650 mg Q4H PRN Administration Pain Scale 1 - 3 or fever Albuterol/Ipratropium 3 ml 10/25/21 16:00 10/27/21 11:53 Ipratropium/Albuterol 0.5-3 Mg 3 Ml Ampul.Neb INHALATION 10/25/22 15:59 3 ml QID.RESP ALY Administration Ascorbic Acid 500 mg 10/26/21 08:00 10/27/21 08:21 Ascorbic Acid 500 Mg Tablet PO 10/26/22 07:59 500 mg BID.WITH.MEALS ALY Administration Bisacodyl 10 mg 10/25/21 11:41 Bisacodyl 5 Mg Tablet.Dr PO 10/25/22 11:40 DAILY PRN Constipation Bisacodyl 10 mg 10/25/21 11:41 Bisacodyl 10 Mg Supp.Rect RI 10/25/22 11:40 DAILY PRN Constipation Calcium Carbonate 500 mg 10/25/21 22:00 10/27/21 08:21 Calcium Carbonate 500 Mg Tablet PO 10/25/22 21:59 500 mg TID ALY Administration Dextrose 0 gm 10/25/21 11:46 Dextrose 50% In Water 25 Gm/50 Ml Syringe IV-PUSH 10/25/22 11:45 PRN PRN Hypoglycemia Diclofenac Sodium 2 gm 10/25/21 13:48 Diclofenac Sodium 1% Gel 100 Gm Tube TOPICAL 10/25/22 13:47 QID PRN Pain Diphenhydramine HCl 25 mg 10/25/21 11:41 Diphenhydramine 50 Mg/Ml Vial IM 10/25/22 11:40 Q8H PRN Severe Rash or Itching Furosemide 20 mg 10/26/21 09:00 10/27/21 08:23 Furosemide 20 Mg Tablet PO 10/26/22 08:59 20 mg DAILY ALY Administration Glucagon 1 mg 10/25/21 13:48 Glucagon 1 Mg/Ml Vial SUBCUT Q20M PRN hypoglycemia protocol Glucose 0 gm 10/25/21 11:46 Dextrose 40% Gel 15 Gm Tube PO 10/25/22 11:45 PRN PRN Hypoglycemia Magnesium Sulfate 2 gm in 50 mls @ 25 mls/hr 10/25/21 11:41 10/25/21 15:22 Magnesium Sulf 2gm-*Swfi* IV 10/25/22 11:40 Infused DAILY PRN Infusion Magnesium Level < 1.5 Insulin Aspart 0 units 10/25/21 12:00 10/27/21 13:02 Insulin Aspart 300 Units/3 Ml Insuln.Pen SUBCUT 10/25/22 11:59 3 units TID.WM.HS ALY Administration Protocol Insulin Detemir 15 units 10/26/21 16:45 10/27/21 08:23 Insulin Detemir 300 Units/3 Ml Insuln.Pen SUBCUT 10/26/22 16:44 15 units BID ALY Administration Lactulose 20 gm 10/25/21 13:48 Lactulose 20 Gm/30 Ml Udc PO 10/25/22 13:47 DAILY PRN Abdominal Distention Lactulose 20 gm 10/25/21 14:00 10/27/21 08:21 Lactulose 20 Gm/30 Ml Udc PO 10/25/22 13:59 Not Given TID ALY Lidocaine 1 patch 10/25/21 13:48 10/26/21 20:16 Lidocaine 4% Adh..Patch TOPICAL 10/25/22 13:47 1 patch BID PRN Administration Pain Linagliptin 2.5 mg 10/26/21 16:45 10/27/21 08:18 Linagliptin 5 Mg Tablet PO 10/26/22 16:44 2.5 mg DAILY.WITH.BKFAST ALY Administration Melatonin 5 mg 10/25/21 22:00 10/26/21 21:32 Melatonin 5 Mg Tablet PO 10/25/22 21:59 Not Given HS ALY Morphine Sulfate 2 mg 10/25/21 14:32 10/25/21 21:18 Morphine Sulfate 2 Mg/Ml Vial IV-PUSH 2 mg Q2H PRN Administration Pain Scale 5 - 7 Morphine Sulfate 4 mg 10/25/21 14:33 Morphine Sulfate 4 Mg/Ml Cartridge IV-PUSH Q2H PRN Pain Scale 8 - 10 Multivitamins 1 tab 10/26/21 09:00 10/27/21 08:21 Multivitamin 1 Tab Tablet PO 10/26/22 08:59 1 tab DAILY ALY Administration Naloxone HCl 0.4 mg 10/25/21 20:04 Naloxone Hcl 0.4 Mg/Ml Vial IV-PUSH 10/25/22 20:03 Q2M PRN Opioid Reversal Nitroglycerin 0.4 mg 10/25/21 11:41 Nitroglycerin 0.4 Mg Tab.Subl SUBLINGUAL 10/25/22 11:40 Q5M PRN Chest Pain Ondansetron HCl 8 mg 10/25/21 20:04 10/25/21 21:21 Ondansetron Odt 4 Mg Tab.Rapdis PO 10/25/22 20:03 8 mg TID PRN Administration Nausea Oxycodone HCl 5 mg 10/25/21 20:04 10/27/21 12:04 Oxycodone Ir 5 Mg Tablet PO 5 mg Q4HR PRN Administration Pain Scale 6 - 10 Phytonadione 10 mg 10/26/21 07:50 10/27/21 08:16 Phytonadione 5 Mg Tablet PO 10/26/22 07:49 10 mg QAM ALY Administration Potassium Chloride 20 meq 10/25/21 11:41 Potassium Chloride Er 20 Meq Tab.Er.Prt PO 10/25/22 11:40 DAILY PRN Hypokalemia Potassium Chloride 40 meq 10/25/21 11:41 Potassium Chloride Er 20 Meq Tab.Er.Prt PO 10/25/22 11:40 DAILY PRN Hypokalemia Potassium Chloride 20 meq 10/26/21 09:00 10/27/21 08:20 Potassium Chloride Er 20 Meq Tab.Er.Prt PO 10/26/22 08:59 20 meq DAILY ALY Administration Prochlorperazine Maleate 10 mg 10/25/21 20:04 Prochlorperazine Maleate 5 Mg Tablet PO 10/25/22 20:03 Q6H PRN Nausea Rifaximin 550 mg 10/25/21 21:00 10/27/21 08:18 Rifaximin 550 Mg Tablet PO 10/25/22 20:59 550 mg BID ALY Administration Sodium Bicarbonate 650 mg 10/26/21 08:00 10/27/21 12:04 Sodium Bicarbonate 650 Mg Tablet PO 10/26/22 07:59 650 mg TID.WITH.MEALS ALY Administration Sodium Chloride 0 ml 10/25/21 11:41 10/27/21 04:10 Sodium Chloride 0.9 % 10 Ml Syringe IV-PUSH 10/25/22 11:40 10 ml PRN PRN Administration Flush Sodium Chloride 0 ml 10/25/21 16:08 10/26/21 08:10 Sodium Chloride 0.9 % 10 Ml Syringe IV-PUSH 10/25/22 16:07 10 ml PRN PRN Administration Flush Sodium Chloride 0 ml 10/25/21 22:00 10/27/21 05:37 Sodium Chloride 0.9 % 10 Ml Syringe IV-PUSH 10/25/22 21:59 Not Given QSHIFT ALY Spironolactone 25 mg 10/26/21 09:00 10/27/21 08:16 Spironolactone 25 Mg Tablet PO 10/26/22 08:59 25 mg DAILY ALY Administration Tramadol HCl 50 mg 10/25/21 20:04 07/27/22 09:41 Tramadol 50 Mg Tablet PO 04/23/22 20:03 50 mg Q4H PRN Administration Pain Scale 1 - 5 Vitamin D 25 mcg 10/26/21 09:00 10/27/21 08:21 Cholecalciferol 25 Mcg (1,000 Units) Tablet PO 10/26/22 08:59 25 mcg DAILY ALY Administration A&P - Hospitalist Assessment/Plan (1) Displaced intertrochanteric fracture of left femur, initial encounter for closed fracture: (2) Fall from ground level: (3) COVID-19: (4) Hemochromatosis: (5) Cirrhosis: (6) COPD (chronic obstructive pulmonary disease): (7) Diabetes mellitus, type 2: (8) Pancytopenia: (9) Severe protein-calorie malnutrition: (10) Hyponatremia: Plan POD #2 status post short cephalomedullary nail for left intertrochanteric fracture after fall -Management per orthopedic surgery -PT/OT -[place]ores catheter DC'd yesterday, BladderScan as needed, monitor I's and O's -Complained of Right quiros pain yesterday, tib-fib x-ray negative for any acute process -Platelets above 50,000, start heparin subcutaneous DVT prophylaxis, monitor CBC AMS COVID-19 -Patient appeared drowsy this afternoon, sometimes needing to be prompted multiple times to answer questions, attempted to hold her self up in her chair but slumped back briefly, no loss of consciousness, reported a headache startingthis morning but reportedly also present yesterday, blood sugar 181, blood pressures are soft but similar to prior days, regular rhythm not tachycardic or tachypneic respirations nonlabored, lungs clear to auscultation, saturating normally on room air. No focal deficits on exam. Postop day 2 after left hip surgery. -Stat CT head negative for any acute process, patient received oxycodone around an hour prior to her worsening mental status. Suspect combination of side effect of opiate medications as well as possible generalized weakness and malaise related to COVID-19 with body aches and headache. Appears more alert later in the afternoon similar to as she was yesterday History of cirrhosis and hemochromatosis with chronic pancytopenia -Hemoglobin 8.4, monitor CBC Type 2 diabetes -Detemir increased with hyperglycemia yesterday, insulin sliding scale ++++ ++++ I personally examined the patient on this day of the encounter. I reviewed the relevant history, performed the tran elements of the physical examination, and coordinated the plan of care and I confirmed the resident's medical documentation as written. On my rounds this afternoon I think that she is more drowsy which I think is related to pain medication in setting of her severe cirrhosis. I do not detect any asterixis. Lactulose will be intensified to make sure that she has having 3 bowel movements a day and avoid any problems with hepatic encephalopathy. Her platelet count did improve to about 50,000 where it would be safe to do medical prophylaxis against deep vein thromboses. Therefore we will start at heparin 5000 units subcutaneously twice a day. Documented By: Barbi Jimenez DO, MINH 10/27/21 1414 Signed By: <Electronically signed by DO MINH Jimenez> 10/27/21 174 <Electronically signed by Sharath Marques DO> 10/27/212041 [facility] Work Phone: [phone]) 557-978307-27-2022 Progress note Author Karel Moralez [facility] October 27, 2021 7:44am Note Date/Time October 27, 2021 7:44 am [facility] [address] [place] [address] Orthopedic Progress Note Signed Patient: Hetal Jasso MR#: [id number] : 1955 Acct:[id number] Age/Sex: 66 / F Adm Date: 2 Loc: Room: [address] [place] [address] Type : ADM IN Attending Dr: Sharath Marques DO Copies to: ~ Date of Service: 10/27/2021 Subjective Subjective Interval History: Patient resting in bed this morning. She tells me that she worked with therapy yesterday and went as you would expect . She still having some soreness in theleft hip. Review of hospitalist notes from yesterday suggest the patient had some pain in her right quiros but she did not complain of that this morning when asked. Currently denies any chest pain, shortness of breath, calf pain Exam Physical Exam Vital Signs: Temp Pulse Resp BP Pulse Ox O2 Del Method O2 Flow Rate 97 F L 91 H 20 107/67 94 L Room Air 2 10/27/21 04:16 10/27/21 04:16 10/27/21 04:16 10/27/21 04:16 10/27/21 04:16 10/27/21 04:16 10/26/21 04:01 Narrative: Left hip dressings are clean dry and intact. There is some drainage contained within the dressing. Thigh is soft and compressible. Foot is warm and well-perfused. Sensation intact to light touch throughout the foot. She was her toes moves her ankle up and down. Objective Labs Labs: Laboratory Results - last 24 hr 10/25/21 10/26/21 10/26/21 12:00 06:19 06:19 Corrected WBC 2.1 L Uncorrected WBC Count 2.1 L RBC 2.53 L Hgb 8.9 L Hct 25.8 L MCV 101.7 H MCH 35.1 H MCHC 34.5 RDW 13.5 Plt Count 47 L MPV 10.6 Neut % (Auto) 82.2 Lymph % (Auto) 7.9 [place] % (Auto) 9.7 Eos % (Auto) 0.0 Baso % (Auto) 0.2 Neut # (Auto) 1.8 Lymph # (Auto) 0.2 L [place] # (Auto) 0.2 Eos # (Auto) 0.0 Baso # (Auto) 0.0 Nucleated RBC % (auto) 0.0 Platelet Estimate Decreased L Large Platelets Slight Plt Morphology Comment Normal RBC Morphology Normal PT INR POC Glucose POC Glucose Comment Estimat Average Glucose 171 Hemoglobin A1c 7.6 H Crossmatch (AHG) See Detail 10/26/21 10/26/21 10/26/21 11:31 11:42 16:32 Corrected WBC Uncorrected WBC Count RBC Hgb Hct MCV MCH MCHC RDW Plt Count MPV Neut % (Auto) Lymph % (Auto) [place] % (Auto) Eos % (Auto) Baso % (Auto) Neut # (Auto) Lymph # (Auto) [place] # (Auto) Eos # (Auto) Baso # (Auto) Nucleated RBC % (auto) Platelet Estimate Large Platelets Plt Morphology Comment RBC Morphology PT INR POC Glucose 499 H* 495 H* 520 H* POC Glucose Comment Glu2: cleaned meter Glu2: cleaned meter Estimat Average Glucose Hemoglobin A1c Crossmatch (AHG) 10/26/21 10/27/21 10/27/21 20:55 01:53 06:19 Corrected WBC Uncorrected WBC Count RBC Hgb Hct MCV MCH MCHC RDW Plt Count MPV Neut % (Auto) Lymph % (Auto) [place] % (Auto) Eos % (Auto) Baso % (Auto) Neut # (Auto) Lymph # (Auto) [place] # (Auto) Eos # (Auto) Baso # (Auto) Nucleated RBC % (auto) Platelet Estimate Large Platelets Plt Morphology Comment RBC Morphology PT INR POC Glucose 514 H* 174 66 POC Glucose Comment Estimat Average Glucose Hemoglobin A1c Crossmatch (AHG) 10/27/21 10/27/21 10/27/21 06:36 06:36 06:38 Corrected WBC 5.5 Uncorrected WBC Count 5.5 RBC 2.39 L Hgb 8.4 L Hct 24.2 L MCV 101.1 H MCH 35.2 H MCHC 34.8 RDW 14.1 Plt Count 57 L MPV 10.1 Neut % (Auto) 78.6 Lymph % (Auto) 9.7 [place] % (Auto) 11.4 Eos % (Auto) 0.2 Baso % (Auto) 0.1 Neut # (Auto) 4.3 Lymph # (Auto) 0.5 L [place] # (Auto) 0.6 Eos # (Auto) 0.0 Baso # (Auto) 0.0 Nucleated RBC % (auto) 0.0 Platelet Estimate Large Platelets Plt Morphology Comment RBC Morphology PT 16.7 H INR 1.5 POC Glucose 90 POC Glucose Comment Estimat Average Glucose Hemoglobin A1c Crossmatch (AHG) Micro Microbiology Results: Microbiology 10/25/21 14:10 [place] Urine Culture - Preliminary No Growth 1 Day Assessment / Plan Assessment and plan (1) Displaced intertrochanteric fracture of left femur, initial encounter for closed fracture: Plan: POD 2 s/p L short CMN for L IT fx 1. Pain control 2. Medical management per hospitalist team 3. DVT prophylaxis: Recommend Lovenox but will defer final decision to hospitalist team 4. Osteoporosis: Started on calcium and vitamin D. Will get patient in our own the bone program. 5. Hypoalbuminemia: started on Beneprotein 6. Anemia: Hgb 8.4 this am. Continue supportive treatment with hydration; unableto give Fe secondary to hemochromatosis 7. PT/OT to begin today. Weightbearing as tolerated left lower extremity 8. Right tibia x-rays were independently reviewed from 10/26/2021. I do not appreciate any acute osseous abnormalities. I suspect the patient probably has some quiros pain from having the [place] table boots on tight during her surgery. 9. Disposition: Likely return to SNF 10. Please call with any questions or concerns. Patient's dressings need to stay in place for 2 weeks from surgery. If she is at a facility that they can be removed at the facility and her stitches can be left open to air. At 3 weeksafter surgery, if there are no concerns for the incision, the stitches may be removed. She can then follow-up with me in the office at 6 weeks postop. Code(s): S72.142A - Displaced intertrochanteric fracture of left femur, initial encounterfor closed fracture Status: Acute (2) Fall from ground level: Code(s): W18.30XA - Fall on same level, unspecified, initial encounter Status: Acute (3) COVID-19: Code(s): U07.1 - COVID-19 Status: Acute (4) Hemochromatosis: Code(s): E83.119 - Hemochromatosis, unspecified Status: Acute (5) Cirrhosis: Code(s): K74.60 - Unspecified cirrhosis of liver Status: Acute (6) COPD (chronic obstructive pulmonary disease): Code(s): J44.9 - Chronic obstructive pulmonary disease, unspecified Status: Acute (7) Diabetes mellitus, type 2: Code(s): E11.9 - Type 2 diabetes mellitus without complications Status: Acute (8) Pancytopenia: Code(s): D61.818 - Other pancytopenia Status: Acute (9) Severe protein-calorie malnutrition: Code(s): E43 - Unspecified severe protein-calorie malnutrition Status: Acute (10) Hyponatremia: Code(s): E87.1 - Hypo-osmolality and hyponatremia Status: Acute Documented By: Karel Moralez MD 10/27/21 40 Signed By: <Electronically signed by Karel Moralez MD> 10/27/21 0744 [facility] Work Phone: 1(708) 922-495707-26-2022 Progress note Author Sharath Marques [facility] October 26, 2021 3:44pm Note Date/Time October 26, 2021 9:51 am [facility] [address] [place] [address] Hospitalist Progress Note Signed Patient: Hetal Jasso MR#: [id number] 427 : 1955 Acct:[id number] Age/Sex: 66 / F Adm Date: 2 Loc: Room: [address] [place] [address] Type : ADM IN Attending Dr: Sharath Marques DO Copies to: ~ Date of Service: 10/26/2021 Subjective Subjective Narrative: Patient seen this morning resting in bed. No events reported overnight. POD #1status post short cephalomedullary nail for left intertrochanteric fracture. States the left hip pain is tolerable on current pain meds. Denies fevers, chills, nausea, vomiting, chest pain, shortness of breath, cough, abdominal pain. Only other concern is right quiros pain after her fall. Indicates the middle of her quiros. Exam Physical Exam Vital Signs: Temp Pulse Resp BP Pulse Ox O2 Del Method O2 Flow Rate 98 F 84 20 90/52 L 99 Nasal Cannula 2 10/26/21 04:01 10/26/21 07:59 10/26/21 07:59 10/26/21 04:01 10/26/21 04:01 10/26/21 04:01 10/26/21 04:01 Narrative: GENERAL APPEARANCE: Alert and cooperative. In no acute distress. HEAD: Normocephalic, atraumatic. THROAT: Mucous membranes pink and moist. NECK: No midline spinal tenderness CARDIAC: Normal rate. Regular rhythm. LUNGS: Clear to auscultation bilaterally. No accessory muscle use. No conversational dyspnea. Respirations non-labored. ABDOMEN: Normoactive bowel sounds. Soft, nondistended, nontender. No guarding, rebound, or rigidity. MSK: Left lower extremity wrapped in Adali bandages, dressings CDI. Moves ankles and toes bilaterally. Moves right knee without issue. Reports pain over right quiros but no focal area tenderness identified, no overlying erythema or ecchymosis. EXTREMITIES: No pitting edema. Capillary refill <2 seconds. SKIN: Warm and dry. Objective Lab Results CBC & Chem 7: 10/26/21 06:19 10/26/21 06:19 Meds Allergies and Active Meds Allergies bupropion Allergy (Verified 06/04/21 10:54) Unknown Reaction Active Meds: Active Medications Generic Name Dose Route Start Last Admin Trade Name David PRN Reason Stop Dose Admin Acetaminophen 650 mg 10/25/21 11:41 10/26/21 04:06 Acetaminophen 325 Mg Tablet PO 10/25/22 11:40 650 mg Q4H PRN Administration Pain Scale 1 - 3 or fever Albuterol/Ipratropium 3 ml 10/25/21 16:00 10/26/21 07:59 Ipratropium/Albuterol 0.5-3 Mg 3 Ml Ampul.Neb INHALATION 10/25/22 15:59 3 ml QID.RESP ALY Administration Ascorbic Acid 500 mg 10/26/21 08:00 10/26/21 08:11 Ascorbic Acid 500 Mg Tablet PO 10/26/22 07:59 500 mg BID.WITH.MEALS ALY Administration Bisacodyl 10 mg 10/25/21 11:41 Bisacodyl 5 Mg Tablet.Dr PO 10/25/22 11:40 DAILY PRN Constipation Bisacodyl 10 mg 10/25/21 11:41 Bisacodyl 10 Mg Supp.Rect RI 10/25/22 11:40 DAILY PRN Constipation Calcium Carbonate 500 mg 10/25/21 22:00 10/26/21 08:11 Calcium Carbonate 500 Mg Tablet PO 10/25/22 21:59 500 mg TID ALY Administration Dextrose 0 gm 10/25/21 11:46 Dextrose 50% In Water 25 Gm/50 Ml Syringe IV-PUSH 10/25/22 11:45 PRN PRN Hypoglycemia Diclofenac Sodium 2 gm 10/25/21 13:48 Diclofenac Sodium 1% Gel 100 Gm Tube TOPICAL 10/25/22 13:47 QID PRN Pain Diphenhydramine HCl 25 mg 10/25/21 11:41 Diphenhydramine 50 Mg/Ml Vial IM 10/25/22 11:40 Q8H PRN Severe Rash or Itching Famotidine 20 mg 10/25/21 21:00 10/26/21 08:10 Famotidine/Pf 20 Mg/2 Ml Vial IV-PUSH 10/25/22 20:59 20 mg Q12HR ALY Administration Furosemide 20 mg 10/26/21 09:00 10/26/21 08:11 Furosemide 20 Mg Tablet PO 10/26/22 08:59 20 mg DAILY ALY Administration Glucagon 1 mg 10/25/21 13:48 Glucagon 1 Mg/Ml Vial SUBCUT Q20M PRN hypoglycemia protocol Glucose 0 gm 10/25/21 11:46 Dextrose 40% Gel 15 Gm Tube PO 10/25/22 11:45 PRN PRN Hypoglycemia Magnesium Sulfate 2 gm in 50 mls @ 25 mls/hr 10/25/21 11:41 10/25/21 15:22 Magnesium Sulf 2gm-*Swfi* IV 10/25/22 11:40 Infused DAILY PRN Infusion Magnesium Level < 1.5 Sodium Chloride 500 mls @ 20 mls/hr 10/25/21 15:36 0.9 % Sodium Chloride IV 10/26/21 15:35 PROTOCOL PRN BLOOD TRANSFUSION Cefazolin Sodium 1 gm in 50 mls @ 100 mls/hr 10/26/21 02:40 10/26/21 02:52 Ancef IV 10/26/21 11:09 100 mls/hr Q8H ALY Administration Insulin Aspart 0 units 10/25/21 12:00 10/26/21 08:11 Insulin Aspart 300 Units/3 Ml Insuln.Pen SUBCUT 10/25/22 11:59 10 units TID.WM.HS ALY Administration Protocol Insulin Detemir 15 units 10/26/21 09:00 10/26/21 08:12 Insulin Detemir 300 Units/3 Ml Insuln.Pen SUBCUT 10/26/22 08:59 15 units QAM ALY Administration Lactulose 20 gm 10/25/21 13:48 Lactulose 20 Gm/30 Ml Udc PO 10/25/22 13:47 DAILY PRN Abdominal Distention Lactulose 20 gm 10/25/21 14:00 10/26/21 08:09 Lactulose 20 Gm/30 Ml Udc PO 10/25/22 13:59 20 gm TID ALY Administration Lidocaine 1 patch 10/25/21 13:48 Lidocaine 4% Adh..Patch TOPICAL 10/25/22 13:47 BID PRN Pain Melatonin 5 mg 10/25/21 22:00 10/25/21 21:46 Melatonin 5 Mg Tablet PO 10/25/22 21:59 Not Given [facility] Morphine Sulfate 2 mg 10/25/21 14:32 10/25/21 21:18 Morphine Sulfate 2 Mg/Ml Vial IV-PUSH 2 mg Q2H PRN Administration Pain Scale 5 - 7 Morphine Sulfate 4 mg 10/25/21 14:33 Morphine Sulfate 4 Mg/Ml Cartridge IV-PUSH Q2H PRN Pain Scale 8 - 10 Multivitamins 1 tab 10/26/21 09:00 10/26/21 08:11 Multivitamin 1 Tab Tablet PO 10/26/22 08:59 1 tab DAILY ALY Administration Naloxone HCl 0.4 mg 10/25/21 20:04 Naloxone Hcl 0.4 Mg/Ml Vial IV-PUSH 10/25/22 20:03 Q2M PRN Opioid Reversal Nitroglycerin 0.4 mg 10/25/21 11:41 Nitroglycerin 0.4 Mg Tab.Subl SUBLINGUAL 10/25/22 11:40 Q5M PRN Chest Pain Non-Formulary Medication 4.5 mg 11/01/21 09:00 Dulaglutide [Trulicity] SUBCUT 11/01/22 08:59 QWEEK ALY Ondansetron HCl 8 mg 10/25/21 20:04 10/25/21 21:21 Ondansetron Odt 4 Mg Tab.Rapdis PO 10/25/22 20:03 8 mg TID PRN Administration Nausea Oxycodone HCl 5 mg 10/25/21 20:04 Oxycodone Ir 5 Mg Tablet PO Q4HR PRN Pain Scale 6 - 10 Phytonadione 10 mg 10/26/21 07:50 10/26/21 09:00 Phytonadione 5 Mg Tablet PO 10/26/22 07:49 10 mg QAM ALY Administration Potassium Chloride 20 meq 10/25/21 11:41 Potassium Chloride Er 20 Meq Tab.Er.Prt PO 10/25/22 11:40 DAILY PRN Hypokalemia Potassium Chloride 40 meq 10/25/21 11:41 Potassium Chloride Er 20 Meq Tab.Er.Prt PO 10/25/22 11:40 DAILY PRN Hypokalemia Potassium Chloride 20 meq 10/26/21 09:00 10/26/21 08:12 Potassium Chloride Er 20 Meq Tab.Er.Prt PO 10/26/22 08:59 20 meq DAILY ALY Administration Prochlorperazine Maleate 10 mg 10/25/21 20:04 Prochlorperazine Maleate 5 Mg Tablet PO 10/25/22 20:03 Q6H PRN Nausea Rifaximin 550 mg 10/25/21 21:00 10/26/21 08:12 Rifaximin 550 Mg Tablet PO 10/25/22 20:59 550 mg BID ALY Administration Sodium Bicarbonate 650 mg 10/26/21 08:00 10/26/21 09:00 Sodium Bicarbonate 650 Mg Tablet PO 10/26/22 07:59 650 mg TID.WITH.MEALS ALY Administration Sodium Chloride 0 ml 10/25/21 11:41 10/26/21 04:07 Sodium Chloride 0.9 % 10 Ml Syringe IV-PUSH 10/25/22 11:40 10 ml PRN PRN Administration Flush Sodium Chloride 10 ml 10/25/21 11:41 Sodium Chloride 0.9 % 10 Ml Vial.Pf INJECTION 10/25/22 11:40 PRN PRN To dilute Pepcid Sodium Chloride 0 ml 10/25/21 16:08 10/26/21 08:10 Sodium Chloride 0.9 % 10 Ml Syringe IV-PUSH 10/25/22 16:07 10 ml PRN PRN Administration Flush Sodium Chloride 0 ml 10/25/21 22:00 10/26/21 05:48 Sodium Chloride 0.9 % 10 Ml Syringe IV-PUSH 10/25/22 21:59 10 ml QSHIFT ALY Administration Spironolactone 25 mg 10/26/21 09:00 10/26/21 08:10 Spironolactone 25 Mg Tablet PO 10/26/22 08:59 25 mg DAILY ALY Administration Tramadol HCl 50 mg 10/25/21 20:04 10/26/21 06:52 Tramadol 50 Mg Tablet PO 04/23/22 20:03 50 mg Q4H PRN Administration Pain Scale 1 - 5 Vitamin D 25 mcg 10/26/21 09:00 10/26/21 08:11 Cholecalciferol 25 Mcg (1,000 Units) Tablet PO 10/26/22 08:59 25 mcg DAILY ALY Administration A&P - Hospitalist Assessment/Plan (1) Displaced intertrochanteric fracture of left femur, initial encounter for closed fracture: (2) Fall from ground level: (3) COVID-19: (4) Hemochromatosis: (5) Cirrhosis: (6) COPD (chronic obstructive pulmonary disease): (7) Diabetes mellitus, type 2: (8) Pancytopenia: (9) Severe protein-calorie malnutrition: (10) Hyponatremia: Plan POD #1 status post short cephalomedullary nail for left intertrochanteric fracture after fall -Management per orthopedic surgery -PT/OT -DC IV fluids, tolerating oral intake, DC Flores catheter -Reporting right quiros pain, check tib-fib x-ray -Recommend mechanical prophylaxis, early ambulation, holding pharmacologic DVT prophylaxis for platelets less than 50,000, monitor CBC COVID-19 History of COPD -Reportedly occasional dry cough otherwise denies shortness of breath, chest x- ray with no acute process, on supplemental oxygen per chart, had nasal cannula resting on top of her head on upon my examination and was saturating 93% on room air -Zabrina History of cirrhosis and hemochromatosis with chronic pancytopenia -Hemoglobin 8.9 today after surgery yesterday, recheck CBC in a.m. Type 2 diabetes -Detemir, insulin sliding scale -Sodium corrected for hyperglycemia 133-134 +++++ +++++ I personally examined the patient on this day of the encounter. I reviewed the relevant history, performed the tran elements of the physical examination, and coordinated the plan of care and I confirmed the resident's medical documentation as written. Patient seems to be doing well today. Sitting up on the side of her chair and feeding herself lunch. Drinking plenty liquids. Minimal pain in the left hip operative site. Interestingly she complains of pain more in the quiros right in the middle between the knee and the ankle. I detect no injuries to the right toes, right foot, right ankle, or right knee. I do not detect any significant injury to the right quiros. But we will x-ray this for completeness. Will monitor her hemoglobin and platelet counts closely given severe cirrhosis. For now the best DVT prophylaxis will be early ambulation. Not a candidate for Lovenox or heparin due to thrombocytopenia. Documented By: Barbi Jimenez DO, RES 10/26/21 [id number] Signed By: <Electronically signed by DO MINH Jimenez> 10/26/21 8636 <Electronically signed by Sharath Marques DO> 10/26/21 8655 [facility] Work Phone: 1(485) 317-165907-26-2022 Progress note Author Karel Moralez [facility] October 26, 2021 7:01am Note Date/Time October 26, 2021 7:01 am [facility] [address] [place] [address] Orthopedic Progress Note Signed Patient: Hetal Jasso MR#: [id number] 427 : 1955 Acct:[id number] Age/Sex: 66 / F Adm Date: 2 Loc: 3T Room: [address] [place] [address] Type : ADM IN Attending Dr: Sharath Marques DO Copies to: ~ Date of Service: 10/26/2021 Subjective Subjective Interval History: Patient resting comfortably in her bed this morning. She is much more interactive today compared to yesterday. She reports that her hip does feel better than what it did yesterday but still has significant pain. Exam Physical Exam Vital Signs: Temp Pulse Resp BP Pulse Ox O2 Del Method O2 Flow Rate 98 F 96 H 20 90/52 L 99 Nasal Cannula 2 10/26/21 04:01 10/26/21 04:01 10/26/21 04:01 10/26/21 04:01 10/26/21 04:01 10/26/21 04:01 10/26/21 04:01 Narrative: Left hip dressings are clean dry and intact. There is some drainage contained within the dressing. Thigh is soft and compressible. Foot is warm and well-perfused. Sensation intact to light touch throughout the foot. She was her toes moves her ankle up and down. Objective Labs Labs: Laboratory Results - last 24 hr 10/25/21 10/25/21 10/25/21 12:00 12:06 12:06 Corrected WBC 1.4 L Uncorrected WBC Count 1.4 L RBC 3.23 L Hgb 11.5 L Hct 32.9 L MCV 102.0 H MCH 35.7 H MCHC 35.0 RDW 13.6 Plt Count 39 L* MPV 9.8 Neut % (Auto) 62.9 Lymph % (Auto) 11.3 [place] % (Auto) 25.1 Eos % (Auto) 0.2 Baso % (Auto) 0.5 Neut # (Auto) 0.9 L Lymph # (Auto) 0.2 L [place] # (Auto) 0.4 Eos # (Auto) 0.0 Baso # (Auto) 0.0 Nucleated RBC % (auto) 0.4 Platelet Estimate Decreased L Plt Morphology Comment Normal RBC Morphology N/A Macrocytosis Slight PT INR APTT PHA Creatinine Clear Sodium Potassium Chloride Carbon Dioxide BUN Creatinine Est GFR ( Amer) Est GFR (Non-Af Amer) Glucose POC Glucose POC Glucose Comment Calcium Magnesium Iron TIBC Transferrin Ferritin Total Bilirubin 2.8 H Direct Bilirubin 0.6 H Indirect Bilirubin 2.2 AST 55 H ALT 34 Alkaline Phosphatase 104 H Total Protein 4.9 L Albumin 2.9 L Globulin 2.0 Albumin/Globulin Ratio 1.5 Prealbumin Vitamin B12 25-OH Vitamin D Total Folate TSH 3rd Generation Urine Color Urine Appearance Urine pH Ur Specific [place] Urine Protein Urine Glucose (UA) Urine Ketones Urine Occult Blood Urine Nitrite Urine Bilirubin Urine Urobilinogen Ur Leukocyte Esterase Urine RBC Urine WBC Ur Squamous Epith Cells Urine Bacteria Hyaline Casts Blood Type A Positive Blood Type Recheck Antibody Screen Negative Crossmatch (AHG) See Detail 10/25/21 10/25/21 10/25/21 12:06 12:06 12:53 Corrected WBC Uncorrected WBC Count RBC Hgb Hct MCV MCH MCHC RDW Plt Count MPV Neut % (Auto) Lymph % (Auto) [place] % (Auto) Eos % (Auto) Baso % (Auto) Neut # (Auto) Lymph # (Auto) [place] # (Auto) Eos # (Auto) Baso # (Auto) Nucleated RBC % (auto) Platelet Estimate Plt Morphology Comment RBC Morphology Macrocytosis PT 17.6 H INR 1.5 APTT 48.1 H PHA Creatinine Clear 57.06 Sodium 131 L Potassium 4.8 Chloride 103 Carbon Dioxide 19.0 L BUN 16 Creatinine 0.69 Est GFR ( Amer) > 60 Est GFR (Non-Af Amer) > 60 Glucose 317 H POC Glucose POC Glucose Comment Calcium 8.2 Magnesium 1.5 L Iron 99 TIBC 216 L Transferrin 154 L Ferritin 417.2 H Total Bilirubin Direct Bilirubin Indirect Bilirubin AST ALT Alkaline Phosphatase Total Protein Albumin Globulin Albumin/Globulin Ratio Prealbumin 6.0 L Vitamin B12 2446 H 25-OH Vitamin D Total 110.6 H Folate > 22.3 TSH 3rd Generation 1.69 Urine Color Urine Appearance Urine pH Ur Specific [place] Urine Protein Urine Glucose (UA) Urine Ketones Urine Occult Blood Urine Nitrite Urine Bilirubin Urine Urobilinogen Ur Leukocyte Esterase Urine RBC Urine WBC Ur Squamous Epith Cells Urine Bacteria Hyaline Casts Blood Type Blood Type Recheck A Positive Antibody Screen Crossmatch ([facility]) 10/25/21 10/25/21 10/25/21 14:10 14:44 18:23 Corrected WBC Uncorrected WBC Count RBC Hgb Hct MCV MCH MCHC RDW Plt Count MPV Neut % (Auto) Lymph % (Auto) [place] % (Auto) Eos % (Auto) Baso % (Auto) Neut # (Auto) Lymph # (Auto) [place] # (Auto) Eos # (Auto) Baso # (Auto) Nucleated RBC % (auto) Platelet Estimate Plt Morphology Comment RBC Morphology Macrocytosis PT INR APTT PHA Creatinine Clear Sodium Potassium Chloride Carbon Dioxide BUN Creatinine Est GFR ( Amer) Est GFR (Non-Af Amer) Glucose POC Glucose 311 229 POC Glucose Comment Calcium Magnesium Iron TIBC Transferrin Ferritin Total Bilirubin Direct Bilirubin Indirect Bilirubin AST ALT Alkaline Phosphatase Total Protein Albumin Globulin Albumin/Globulin Ratio Prealbumin Vitamin B12 25-OH Vitamin D Total Folate TSH 3rd Generation Urine Color Yellow Urine Appearance Clear Urine pH 5.5 Ur Specific [place] 1.030 Urine Protein Trace H Urine Glucose (UA) 250 H Urine Ketones Negative Urine Occult Blood 3+ H Urine Nitrite Negative Urine Bilirubin Negative Urine Urobilinogen Normal Ur Leukocyte Esterase Negative Urine RBC Innumerable H Urine WBC 1-2 Ur Squamous Epith Cells None seen Urine Bacteria None seen Hyaline Casts None seen Blood Type Blood Type Recheck Antibody Screen Crossmatch ([facility]) 10/25/21 10/26/21 10/26/21 20:17 02:16 06:21 Corrected WBC Uncorrected WBC Count RBC Hgb Hct MCV MCH MCHC RDW Plt Count MPV Neut % (Auto) Lymph % (Auto) [place] % (Auto) Eos % (Auto) Baso % (Auto) Neut # (Auto) Lymph # (Auto) [place] # (Auto) Eos # (Auto) Baso # (Auto) Nucleated RBC % (auto) Platelet Estimate Plt Morphology Comment RBC Morphology Macrocytosis PT INR APTT PHA Creatinine Clear Sodium Potassium Chloride Carbon Dioxide BUN Creatinine Est GFR ( Amer) Est GFR (Non-Af Amer) Glucose POC Glucose 169 260 302 POC Glucose Comment Glu2: cleaned meter Calcium Magnesium Iron TIBC Transferrin Ferritin Total Bilirubin Direct Bilirubin Indirect Bilirubin AST ALT Alkaline Phosphatase Total Protein Albumin Globulin Albumin/Globulin Ratio Prealbumin Vitamin B12 25-OH Vitamin D Total Folate TSH 3rd Generation Urine Color Urine Appearance Urine pH Ur Specific [place] Urine Protein Urine Glucose (UA) Urine Ketones Urine Occult Blood Urine Nitrite Urine Bilirubin Urine Urobilinogen Ur Leukocyte Esterase Urine RBC Urine WBC Ur Squamous Epith Cells Urine Bacteria Hyaline Casts Blood Type Blood Type Recheck Antibody Screen Crossmatch (AHG) Assessment / Plan Assessment and plan (1) Fall from ground level: Code(s): W18.30XA - Fall on same level, unspecified, initial encounter Status: Acute (2) COVID-19: Code(s): U07.1 - COVID-19 Status: Acute (3) Hemochromatosis: Code(s): E83.119 - Hemochromatosis, unspecified Status: Acute (4) Cirrhosis: Code(s): K74.60 - Unspecified cirrhosis of liver Status: Acute (5) COPD (chronic obstructive pulmonary disease): Code(s): J44.9 - Chronic obstructive pulmonary disease, unspecified Status: Acute (6) Diabetes mellitus, type 2: Code(s): E11.9 - Type 2 diabetes mellitus without complications Status: Acute (7) Pancytopenia: Code(s): D61.818 - Other pancytopenia Status: Acute (8) Severe protein-calorie malnutrition: Code(s): E43 - Unspecified severe protein-calorie malnutrition Status: Acute (9) Hyponatremia: Code(s): E87.1 - Hypo-osmolality and hyponatremia Status: Acute (10) Displaced intertrochanteric fracture of left femur, initial encounter for closed fracture: Plan: POD 1 s/p L short CMN for L IT fx 1. Pain control 2. Medical management per hospitalist team 3. DVT prophylaxis: Recommend Lovenox but will defer final decision to hospitalist team 4. Osteoporosis: Started on calcium and vitamin D. 5. Hypoalbuminemia: started on Beneprotein 6. Anemia: Hgb pending this am. Continue supportive treatment with hydration; unable to give Fe secondary to hemochromatosis 7. PT/OT to begin today. Weightbearing as tolerated left lower extremity 8. Perioperative antibiotics x 24 hrs 9. Disposition: Likely return to SNF Code(s): S72.142A - Displaced intertrochanteric fracture of left femur, initial encounterfor closed fracture Status: Acute Documented By: Karel Moralez MD 10/26/21 06 59 Signed By: <Electronically signed by Karel Moralez MD> 10/26/21 0701 [facility] Work Phone: 1(205) 106-311407-25-2022 Progress note Author Karel Moralez [facility] October 25, 2021 8:10pm Note Date/Time October 25, 2021 8:08 pm [facility] [address] [place] [address] Orthopedic Progress Note Signed Patient: Hetal Jasso MR#: [id number] 427 : 1955 Acct:[id number] Age/Sex: 66 / F Adm Date: 2 Loc: Room: [address] [place] [address] Type : ADM IN Attending Dr: Sharath Marques DO Copies to: ~ Date of Service: 10/25/2021 Subjective Subjective Interval History: Patient seen recovering in the PACU. She still recovering from anesthesia. Exam Physical Exam Vital Signs: Temp Pulse Resp BP Pulse Ox O2 Del Method O2 Flow Rate 98.9 F 95 H 16 91/57 L 96 Nasal Cannula 2 10/25/21 18:05 10/25/21 18:05 10/25/21 18:05 10/25/21 18:05 10/25/21 18:05 10/25/21 16:51 10/25/21 16:51 Narrative: Left hip dressings are clean dry and intact. There is some drainage contained within the dressing. Thigh is soft and compressible. Foot is warm and well-perfused. Unable to assess sensation or motor as the patient is still awakeningfrom anesthesia. Objective Labs Labs: Laboratory Results - last 24 hr 10/25/21 10/25/21 10/25/21 12:00 12:06 12:06 Corrected WBC 1.4 L Uncorrected WBC Count 1.4 L RBC 3.23 L Hgb 11.5 L Hct 32.9 L MCV 102.0 H MCH 35.7 H MCHC 35.0 RDW 13.6 Plt Count 39 L* MPV 9.8 Neut % (Auto) 62.9 Lymph % (Auto) 11.3 [place] % (Auto) 25.1 Eos % (Auto) 0.2 Baso % (Auto) 0.5 Neut # (Auto) 0.9 L Lymph # (Auto) 0.2 L [place] # (Auto) 0.4 Eos # (Auto) 0.0 Baso # (Auto) 0.0 Nucleated RBC % (auto) 0.4 Platelet Estimate Decreased L Plt Morphology Comment Normal RBC Morphology N/A Macrocytosis Slight PT INR APTT PHA Creatinine Clear Sodium Potassium Chloride Carbon Dioxide BUN Creatinine Est GFR ( Amer) Est GFR (Non-Af Amer) Glucose POC Glucose Calcium Magnesium Iron TIBC Transferrin Ferritin Total Bilirubin 2.8 H Direct Bilirubin 0.6 H Indirect Bilirubin 2.2 AST 55 H ALT 34 Alkaline Phosphatase 104 H Total Protein 4.9 L Albumin 2.9 L Globulin 2.0 Albumin/Globulin Ratio 1.5 Prealbumin Vitamin B12 25-OH Vitamin D Total Folate TSH 3rd Generation Urine Color Urine Appearance Urine pH Ur Specific [place] Urine Protein Urine Glucose (UA) Urine Ketones Urine Occult Blood Urine Nitrite Urine Bilirubin Urine Urobilinogen Ur Leukocyte Esterase Urine RBC Urine WBC Ur Squamous Epith Cells Urine Bacteria Hyaline Casts Blood Type A Positive Blood Type Recheck Antibody Screen Negative Crossmatch (AHG) See Detail 10/25/21 10/25/21 10/25/21 12:06 12:06 12:53 Corrected WBC Uncorrected WBC Count RBC Hgb Hct MCV MCH MCHC RDW Plt Count MPV Neut % (Auto) Lymph % (Auto) [place] % (Auto) Eos % (Auto) Baso % (Auto) Neut # (Auto) Lymph # (Auto) [place] # (Auto) Eos # (Auto) Baso # (Auto) Nucleated RBC % (auto) Platelet Estimate Plt Morphology Comment RBC Morphology Macrocytosis PT 17.6 H INR 1.5 APTT 48.1 H PHA Creatinine Clear 57.06 Sodium 131 L Potassium 4.8 Chloride 103 Carbon Dioxide 19.0 L BUN 16 Creatinine 0.69 Est GFR ( Amer) > 60 Est GFR (Non-Af Amer) > 60 Glucose 317 H POC Glucose Calcium 8.2 Magnesium 1.5 L Iron 99 TIBC 216 L Transferrin 154 L Ferritin 417.2 H Total Bilirubin Direct Bilirubin Indirect Bilirubin AST ALT Alkaline Phosphatase Total Protein Albumin Globulin Albumin/Globulin Ratio Prealbumin 6.0 L Vitamin B12 2446 H 25-OH Vitamin D Total 110.6 H Folate > 22.3 TSH 3rd Generation 1.69 Urine Color Urine Appearance Urine pH Ur Specific [place] Urine Protein Urine Glucose (UA) Urine Ketones Urine Occult Blood Urine Nitrite Urine Bilirubin Urine Urobilinogen Ur Leukocyte Esterase Urine RBC Urine WBC Ur Squamous Epith Cells Urine Bacteria Hyaline Casts Blood Type Blood Type Recheck A Positive Antibody Screen Crossmatch ([facility]) 10/25/21 10/25/21 10/25/21 14:10 14:44 18:23 Corrected WBC Uncorrected WBC Count RBC Hgb Hct MCV MCH MCHC RDW Plt Count MPV Neut % (Auto) Lymph % (Auto) [place] % (Auto) Eos % (Auto) Baso % (Auto) Neut # (Auto) Lymph # (Auto) [place] # (Auto) Eos # (Auto) Baso # (Auto) Nucleated RBC % (auto) Platelet Estimate Plt Morphology Comment RBC Morphology Macrocytosis PT INR APTT PHA Creatinine Clear Sodium Potassium Chloride Carbon Dioxide BUN Creatinine Est GFR ( Amer) Est GFR (Non-Af Amer) Glucose POC Glucose 311 229 Calcium Magnesium Iron TIBC Transferrin Ferritin Total Bilirubin Direct Bilirubin Indirect Bilirubin AST ALT Alkaline Phosphatase Total Protein Albumin Globulin Albumin/Globulin Ratio Prealbumin Vitamin B12 25-OH Vitamin D Total Folate TSH 3rd Generation Urine Color Yellow Urine Appearance Clear Urine pH 5.5 Ur Specific [place] 1.030 Urine Protein Trace H Urine Glucose (UA) 250 H Urine Ketones Negative Urine Occult Blood 3+ H Urine Nitrite Negative Urine Bilirubin Negative Urine Urobilinogen Normal Ur Leukocyte Esterase Negative Urine RBC Innumerable H Urine WBC 1-2 Ur Squamous Epith Cells None seen Urine Bacteria None seen Hyaline Casts None seen Blood Type Blood Type Recheck Antibody Screen Crossmatch ([facility]) Assessment / Plan Assessment and plan (1) Fall from ground level: Code(s): W18.30XA - Fall on same level, unspecified, initial encounter Status: Acute (2) COVID-19: Code(s): U07.1 - COVID-19 Status: Acute (3) Hemochromatosis: Code(s): E83.119 - Hemochromatosis, unspecified Status: Acute (4) Cirrhosis: Code(s): K74.60 - Unspecified cirrhosis of liver Status: Acute (5) COPD (chronic obstructive pulmonary disease): Code(s): J44.9 - Chronic obstructive pulmonary disease, unspecified Status: Acute (6) Diabetes mellitus, type 2: Code(s): E11.9 - Type 2 diabetes mellitus without complications Status: Acute (7) Pancytopenia: Code(s): D61.818 - Other pancytopenia Status: Acute (8) Severe protein-calorie malnutrition: Code(s): E43 - Unspecified severe protein-calorie malnutrition Status: Acute (9) Hyponatremia: Code(s): E87.1 - Hypo-osmolality and hyponatremia Status: Acute (10) Displaced intertrochanteric fracture of left femur, initial encounter for closed fracture: Plan: POD 0 s/p L short CMN for L IT fx 1. Pain control 2. Medical management per hospitalist team 3. DVT prophylaxis: Recommend Lovenox but will defer final decision to hospitalist team 4. Osteoporosis: Started on calcium and vitamin D. 5. Hypoalbuminemia: started on Beneprotein 6. Anemia: supportive with hydration; unable to give Fe secondary to hemochromatosis 7. PT/OT to begin postoperative day 1. Weightbearing as tolerated left lower extremity 8. Perioperative antibiotics x 24 hrs 9. CBC and BMP in am. Code(s): S72.142A - Displaced intertrochanteric fracture of left femur, initial encounterfor closed fracture Status: Acute Documented By: Karel Moralez MD 10/25/21 07 Signed By: <Electronically signed by Karel Moralez MD> 10/25/212009 [facility] Work Phone: [phone]) 490-377707-25-2022 Consult note Author Karel Moralez [facility] October 25, 2021 6:24pm Note Date/Time October 25, 2021 6:12 pm [facility] [address] [place] [address] Orthopedic Consult Note Signed Patient: Hetal Jasso MR#: [id number] 427 : 1955 Acct:[id number] Age/Sex: 66 / F Adm Date: 2 Loc: Room: [address] [place] [address] Type : REG [facility] Attending Dr: Sharath Marques DO Copies to: DO Sharath Cai DO Robert M Carlisle, MD~ History of Present Illness HPI Consult date: 10/25/2021 Requesting provider: Sharath Marques DO History of present illness: Patient is a 66-year-old female who sustained a fall from standing. They were initially evaluated at [place] emergency department. I spoke with emergency room physician earlier this morning after looking at x-rays and recommended transfer to [facility] for further management and care. Patient was transferred here and admitted by hospitalist service for medical management. The majority of the patient's history is obtained through chart review as she is unable to provide much history given her mental status. Some of the patient's medical history is obtained through her daughter, Jason, who resides in [place]. Currently, the patient is resting in bed on the floor. She will moan in pain but she will not cooperate with an exam or obtaining a history. Hospitalist hasnoted that the patient was admitted to the prison facility [facility] in July 2020. There is no other information in regards to whathappened with the fall or why she was admitted to the prison facility in the first place. Prior to this fall it is unknown if the patient endorsed any pain in the affected hip. Living situation: Chart review demonstrates that she has been a resident for nowover a year at [facility], a prison facility in the area Assistive devices: Speaking with the patient's daughter she does use a cane and walker to ambulate Anticoagulation: None Prior injuries or surgeries to the affected hip: Unknown Smoking status: Former smoker Immune modulating drugs: No Past medical history includes the following: Hemochromatosis with significant cirrhosis, alcoholic cirrhosis, chronic anemia, COPD, CHF, insulin-dependent diabetes, hypertension. Positive for COVID upon presenting to [place] emergency department earlier today. The patient has been cleared for surgery by the hospitalist team. PMFSH Vaccinated for COVID-19?: Unknown Medical History (Updated 10/25/21 @ 18:18 by Karel Moralez II, MD) Acquired coagulation factor deficiency Alcoholic cirrhosis Anemia Constipation COPD (chronic obstructive pulmonary disease) Depressive disorder Diabetes mellitus, type 2 Hepatic failure Hypertension Hypokalemia Insomnia Pancytopenia Right heart failure Surgical History (Updated 12/29/20 @ 11:39 by Niko Lazo MD) History of ankle surgery left History of hysterectomy Hx of exploratory laparotomy Family History Brother Diabetes Mother No problems noted. Mother Osteoporosis Social History Tobacco Type: cigarettes Substance Use Type: Alcohol (ex-alcoholic) Substance Abuse Comment: unknown Allergies & Medications Medications and Allergies Allergies bupropion Allergy (Verified 06/04/21 10:54) Unknown Reaction Home Medications acetaminophen 325 mg tablet 650 mg PO Q4H PRN Pain 10/15/20 [History Confirmed 10/25/21] cholecalciferol (vitamin D3) 25 mcg (1,000 unit) tablet 25 mcg PO DAILY 10/15/20[History Confirmed 10/25/21] ergocalciferol (vitamin D2) 50,000 unit tablet 50,000 unit PO Q7D 10/15/20 [History Confirmed 10/25/21] furosemide 20 mg tablet 20 mg PO DAILY 10/15/20 [History Confirmed 10/25/21] insulin lispro 100 unit/mL subcutaneous pen (Humalog KwikPen (U-100) Insulin) See Protocol subcut ACHS 10/15/20 [History Confirmed 10/25/21] melatonin 3 mg capsule 5 mg PO HS 10/15/20 [History Confirmed 10/25/21] menthol 4 % topical gel (Biofreeze (menthol)) 1 applic topical Q6-8H PRN Pain 10/15/20 [History Confirmed 10/25/21] metformin 500 mg tablet 500 mg PO DAILY 10/15/20 [History Confirmed 10/25/21] multivitamin 1 tab PO DAILY 10/15/20 [History Confirmed 10/25/21] polyethylene glycol 3350 17 gram oral powder packet (Miralax) 17 g PO DAILY 10/15/20 [History Confirmed 10/25/21] potassium chloride 20 mEq tablet,extended release 20 meq PO DAILY 10/15/20 [History Confirmed 10/25/21] rifaximin 550 mg tablet 550 mg PO BID 10/15/20 [History Confirmed 10/25/21] spironolactone 25 mg tablet 25 mg PO DAILY 10/15/20 [History Confirmed 10/25/21] dextrose 40 % oral gel (Glucose Gel) 10 g PO Q15M PRN diabetes 12/29/20 [History Confirmed 10/25/21] glucagon HCl 1 mg solution for injection (Glucagon (HCl) Emergency Kit) 1 mg subcut Q20M PRN diabetes 12/29/20 [History Confirmed 10/25/21] insulin glargine 100 unit/mL subcutaneous solution 15 unit subcut QAM 12/29/20 [History Confirmed 10/25/21] albuterol sulfate 90 mcg/actuation aerosol inhaler 2 puff inhalation Q4-6H PRN Shortness Of Breath 06/04/21 [History Confirmed 10/25/21] ipratropium 0.5 mg-albuterol 3 mg (2.5 mg base)/3 mL nebulization soln 3 ml inhalation Q6H PRN Shortness Of Breath 06/04/21 [History Confirmed 10/25/21] lidocaine 4 % topical patch 1 patch topical BID PRN Pain 06/04/21 [History Confirmed 10/25/21] mirtazapine 15 mg tablet (Remeron) 15 mg PO QHS 06/04/21 [History Confirmed 10/25/21] nicotine (polacrilex) 2 mg gum (Nicorette) 2 mg buccal Q1-2H PRN Smoking Cessation 06/04/21 [History Confirmed 10/25/21] benzonatate 100 mg capsule 100 mg PO TID PRN Cough 06/08/21 [History Confirmed 10/25/21] calcium carbonate 500 mg calcium (1,250 mg) chewable tablet See Rx Instructions .Route .COMPLEX PRN Indigestion 06/08/21 [History Confirmed 10/25/21] diclofenac sodium 1 % topical gel 2 g topical QID PRN Pain 06/08/21 [History Confirmed 10/25/21] dulaglutide 4.5 mg/0.5 mL subcutaneous pen injector (Trulicity) 4.5 mg subcut QWEEK 10/25/21 [History Confirmed 10/25/21] lactulose 20 gram/30 mL oral solution 20 g PO DAILY PRN Abdominal Distention 10/25/21 [History Confirmed 10/25/21] lactulose 20 gram/30 mL oral solution 20 g PO TID 10/25/21 [History Confirmed 10/25/21] menthol 4 % topical gel (Biofreeze (menthol)) 1 applic topical TID PRN Pain 10/25/21 [History Confirmed 10/25/21] vitamin B complex 1 cap PO DAILY 10/25/21 [History Confirmed 10/25/21] Exam Physical Exam Vital Signs: Temp Pulse Resp BP Pulse Ox O2 Del Method O2 Flow Rate 98.9 F 95 H 16 91/57 L 96 Nasal Cannula 2 10/25/21 18:05 10/25/21 18:05 10/25/21 18:05 10/25/21 18:05 10/25/21 18:05 10/25/21 16:51 10/25/21 16:51 Narrative: Left lower extremity is resting in a shortened externally rotated position. Tenderness palpation over the proximal femur around the hip. Skin is atraumaticand healthy appearing. Foot is warm and well-perfused. Sensation intact to light touch throughout the foot. Patient wiggles the toes and moves her ankle up and down. Results Lab Results Result Diagrams: 10/25/21 12:06 10/25/21 12:06 Labs: Laboratory Results - Last 48 hrs. 10/25/21 14:44: POC Glucose 311 10/25/21 14:10: Urine Color Yellow, Urine Appearance Clear, Urine pH 5.5, Ur Specific [place] 1.030, Urine Protein Trace H, Urine Glucose (UA) 250 H, Urine Ketones Negative, Urine Occult Blood 3+ H, Urine Nitrite Negative, Urine Bilirubin Negative, Urine Urobilinogen Normal, Ur Leukocyte Esterase Negative, Urine RBC Innumerable H, Urine WBC 1-2, Ur Squamous Epith Cells None seen, UrineBacteria None seen, Hyaline Casts None seen 10/25/21 12:53: Blood Type Recheck A Positive 10/25/21 12:06: PHA Creatinine Clear 57.06, Sodium 131 L, Potassium 4.8, Chloride 103, Carbon Dioxide 19.0 L, BUN 16, Creatinine 0.69, Est GFR ( Amer) > 60, Est GFR (Non-Af Amer) > 60, Glucose 317 H, Calcium 8.2, Magnesium 1.5 L, Iron 99, TIBC 216 L, Transferrin 154 L, Ferritin 417.2 H, Prealbumin 6.0 L, Vitamin B12 2446 H, 25-OH Vitamin D Total 110.6 H, Folate > 22.3, TSH 3rd Generation 1.69 10/25/21 12:06: PT 17.6 H, INR 1.5, APTT 48.1 H 10/25/21 12:06: Corrected WBC 1.4 L, Uncorrected WBC Count 1.4 L, RBC 3.23 L, Hgb 11.5 L, Hct 32.9 L, MCV 102.0 H, MCH 35.7 H, MCHC 35.0, RDW 13.6, Plt Count 39 L*, MPV 9.8, Neut % (Auto) 62.9, Lymph % (Auto) 11.3, [place] % (Auto) 25.1, Eos% (Auto) 0.2, Baso % (Auto) 0.5, Neut # (Auto) 0.9 L, Lymph # (Auto) 0.2 L, [place]# (Auto) 0.4, Eos # (Auto) 0.0, Baso # (Auto) 0.0, Nucleated RBC % (auto) 0.4, Platelet Estimate Decreased L, Plt Morphology Comment Normal, RBC Morphology N/A, Macrocytosis Slight 10/25/21 12:06: Total Bilirubin 2.8 H, Direct Bilirubin 0.6 H, Indirect Bilirubin 2.2, AST 55 H, ALT 34, Alkaline Phosphatase 104 H, Total Protein 4.9 L, Albumin 2.9 L, Globulin 2.0, Albumin/Globulin Ratio 1.5 10/25/21 12:00: Blood Type A Positive, Antibody Screen Negative H & H 10/25/21 Range/Units 12:06 Hgb 11.5 L (11.8-15.4) g/dL Hct 32.9 L (34.0-46.4) % Coagulation 10/25/21 Range/Units 12:06 INR 1.5 All other labs are normal. Imaging & Diagnostic Results Imaging/Diagnostics: Pelvis and left femur x-rays demonstrate a displaced intertrochanteric femur fracture. I do not appreciate any acute osseous abnormalities into the mid and distal shaft of the femur. Assessment/Plan (1) Fall from ground level: Code(s): W18.30XA - Fall on same level, unspecified, initial encounter (2) COVID-19: Code(s): U07.1 - COVID-19 (3) Hemochromatosis: Code(s): E83.119 - Hemochromatosis, unspecified (4) Cirrhosis: Code(s): K74.60 - Unspecified cirrhosis of liver (5) COPD (chronic obstructive pulmonary disease): Code(s): J44.9 - Chronic obstructive pulmonary disease, unspecified (6) Diabetes mellitus, type 2: Code(s): E11.9 - Type 2 diabetes mellitus without complications (7) Pancytopenia: Code(s): D61.818 - Other pancytopenia (8) Severe protein-calorie malnutrition: Code(s): E43 - Unspecified severe protein-calorie malnutrition (9) Hyponatremia: Code(s): E87.1 - Hypo-osmolality and hyponatremia (10) Displaced intertrochanteric fracture of left femur, initial encounter for closed fracture: Plan: Closed left displaced intertrochanteric femur fracture While I attempted to have a discussion with the patient she has had several rounds of IV pain medication and was not alert enough to feel comfortable with hergiving consent for her surgery. She did not have a power of environmental attorney listed marcella was able to tell me that her oldest daughter was Jason which we had contact information in the chart. I did have a long discussion with Jason regarding mely's diagnosis and treatment options. I explained to them that they hip fracture is typically an operative diagnosis. However, we did discuss nonoperativeand nonoperative treatment options. In regards to nonoperative treatment, I explained that the patient would be likely bedbound for an extended period of the time and would be unable to weight-bear on the affected leg for approximately 3 months. While this does avoid the risks of surgery, there are significant risks with being bedbound for that long including but not limited to the following: bedsores, pneumonia, bloodclots, and other medical complications. I also explained that given the patient's recent COVID-positive test, her risks of respiratory complications from lying in bed for 3 months would also be significantly higher. In regards to operative treatment, I explained that hip fractures are typically either fixed or replaced with implants. In regards to the patient's hip fracture, I feel it is most amenable to fixation with a sari. I discussed the risks and benefits of this operative intervention with Jason. The benefits include but are not limited to the following: improved pain control, quicker ambulation, and typically improved quality of life compared to nonoperative management. However, there are risks involved with the surgical procedure including but not limited to the following: Infection, bleeding, injury to surrounding structures at the surgery site such as blood vessels, nerves, tendons, muscles, blood clots including DVT or PE, failure of hardware, intraoperative or postoperative fractures that may require further surgery, and other inherent risks of general anesthesia. I also made a point to say that thepatient would be at increased risk for respiratory complications given her recent COVID positive test. Jason and I discussed these risks and benefits of both treatment options at length. Her questions and concerns were all answered and addressed. Ultimatelyshjean-pierre agreed to proceed with surgical fixation of her mom's left hip. Informed consent was obtained at that time. Hemoglobin is 11.5 today. 2 units of blood will be on hold. Patient's platelet count is 39 upon presentation. She will be given 1 unit of platelets in the preoperative holding area and if anesthesia deems it necessary,another unit of platelets during the procedure. Albumin is 2.9. We will start her on Bene protein postoperatively Calcium is 8.2 and vitamin D is 110.6 We will proceed with a left short cephalomedullary nail later today. Remain n.p.o. and nonweightbearing on the left lower extremity. Code(s): S72.142A - Displaced intertrochanteric fracture of left femur, initial encounterfor closed fracture Documented By: Karel Moralez MD 10/25/21 18 11 Signed By: <Electronically signed by Karel Moralez MD> 10/25/21 3527 [facility] Work Phone: [phone]) 138-720007-25-2022 History and physical note Author Sharath Marques [facility] October 25, 2021 1:43pm Note Date/Time October 25, 2021 1:43 pm [facility] [address] [place] [address] Hospitalist H&P Signed Patient: Hetal Jasso MR#: [id number] 427 : 1955 Acct:[id number] Age/Sex: 66 / F Adm Date: 2 Loc: Room: [address] [place] [address] Type : REG [facility] [place] Attending Dr: Sharath Marques DO Copies to: Marcelo Ann,DO Sharath Marques, ~ HPI DATE OF EXAMINATION: 10/25/21 CHIEF COMPLAINT: left hip pain HISTORY OF PRESENT ILLNESS: This is a 66-year-old woman who originally presented to an outside hospital emergency room after a fall at home. Reports indicate that she fell onto her left hip. She told the outside ER that she just lost her balance. X-rays theredemonstrated a fracture of the left hip. Further evaluation at the outside ER found her to be COVID-positive. The outside ER physician described me the patient was having a tremendous amount of pain and was treated with multiple rounds of IV fentanyl and then some Valium out of a concern for muscle spasms. Nursing staff here reports that the patient arrived in some type of compressive device wrapped around her pelvis. She also displayed on her left forearm though there were reports that she did not have any fracture on that left forearm. She arrives with an admission record from [facility], [facility]. It looks like she was admitted there originally on July 2020. The chart also has twelve-lead EKG with a heart rate of 107 demonstrating sinustachycardia. I do not see any acute ST or T wave segment changes on that EKG. My review of paperwork sent over from the outside ER comes up negative for finding any x-ray reports or any transcribed x-ray readings. In the room right now the patient cannot give any information. Nurses medicatedwith 2 mg of morphine IV. She does wake up briefly to my examination but cannotanswer any verbal questions with any responses. The nurses then took off the compressive wrap that was over her pelvis. They had to cut her underwear to remove it. A Flores catheter is in place. I have requested a urine sample from that Flores catheter. No family members are present to help give any additional history. He remains mildly tachycardic with heart rate about 110. She has visible shortening to the left extremity with some external rotation and a little bit of a bump up near the hip where I suspect the fracture is located. Review of Systems Review of Systems Review of systems: 10 point review of systems cannot be obtained due to the current clinical condition which is medicated for pain for an acute hip fracture. Information in this chart including past medical and family and social history are auto imported from past responses in our computer system. I do note that she recently had a FibroScan test as an outpatient which showed severe, grade 4, fibrosis so there certainly is a chronic liver issue. She alsoseems to have a history of hemochromatosis evaluated by the hematology/oncology team here as an outpatient in the past PMFSH Vaccinated for COVID-19?: Unknown Medical History (Updated 10/25/21 @ 13:41 by Sharath Marques DO) Acquired coagulation factor deficiency Alcoholic cirrhosis Anemia Constipation COPD (chronic obstructive pulmonary disease) Depressive disorder Diabetes mellitus, type 2 Hepatic failure Hypertension Hypokalemia Insomnia Pancytopenia Right heart failure Surgical History (Updated 12/29/20 @ 11:39 by Niko Lazo MD) History of ankle surgery left History of hysterectomy Hx of exploratory laparotomy Family History Brother Diabetes Mother No problems noted. Mother Osteoporosis Social History Housing: residential Tobacco Type: cigarettes Substance Use Type: None Substance Abuse Comment: unknown Meds Medications and Allergies Allergies bupropion Allergy (Verified 06/04/21 10:54) Unknown Reaction Home Medications acetaminophen 325 mg tablet 650 mg PO Q4H PRN Pain 10/15/20 [History Confirmed 10/25/21] cholecalciferol (vitamin D3) 25 mcg (1,000 unit) tablet 25 mcg PO DAILY 10/15/20[History Confirmed 10/25/21] ergocalciferol (vitamin D2) 50,000 unit tablet 50,000 unit PO Q7D 10/15/20 [History Confirmed 10/25/21] furosemide 20 mg tablet 20 mg PO DAILY 10/15/20 [History Confirmed 10/25/21] insulin lispro 100 unit/mL subcutaneous pen (Humalog KwikPen (U-100) Insulin) 1 unit subcut ACHS 10/15/20 [History Confirmed 10/25/21] melatonin 3 mg capsule 5 mg PO HS 10/15/20 [History Confirmed 10/25/21] menthol 4 % topical gel (Biofreeze (menthol)) 1 applic topical Q6-8H PRN Pain 10/15/20 [History Confirmed 10/25/21] metformin 500 mg tablet 500 mg PO DAILY 10/15/20 [History Confirmed 10/25/21] multivitamin 1 tab PO DAILY 10/15/20 [History Confirmed 10/25/21] paroxetine HCl 20 mg tablet 20 mg PO DAILY 10/15/20 [History Confirmed 07/12/21] polyethylene glycol 3350 17 gram oral powder packet (Miralax) 17 g PO DAILY 10/15/20 [History Confirmed 10/25/21] potassium chloride 20 mEq tablet,extended release 20 meq PO DAILY 10/15/20 [History Confirmed 10/25/21] rifaximin 550 mg tablet 550 mg PO BID 10/15/20 [History Confirmed 10/25/21] spironolactone 25 mg tablet 25 mg PO DAILY 10/15/20 [History Confirmed 10/25/21] dextrose 40 % oral gel (Glucose Gel) 10 g PO Q15M PRN diabetes 12/29/20 [History Confirmed 10/25/21] glucagon HCl 1 mg solution for injection (Glucagon (HCl) Emergency Kit) 1 mg subcut Q20M PRN diabetes 12/29/20 [History Confirmed 10/25/21] insulin glargine 100 unit/mL subcutaneous solution 15 unit subcut QAM 12/29/20 [History Confirmed 10/25/21] albuterol sulfate 90 mcg/actuation aerosol inhaler 2 puff inhalation Q4-6H PRN Shortness Of Breath 06/04/21 [History Confirmed 10/25/21] ipratropium 0.5 mg-albuterol 3 mg (2.5 mg base)/3 mL nebulization soln 3 ml inhalation Q6H PRN Shortness Of Breath 06/04/21 [History Confirmed 10/25/21] lidocaine 4 % topical patch 1 patch topical BID PRN Pain 06/04/21 [History Confirmed 10/25/21] mirtazapine 15 mg tablet (Remeron) 15 mg PO QHS 06/04/21 [History Confirmed 10/25/21] nicotine (polacrilex) 2 mg gum (Nicorette) 2 mg buccal Q1-2H PRN Smoking Cessation 06/04/21 [History Confirmed 10/25/21] benzonatate 100 mg capsule 100 mg PO TID PRN Cough 06/08/21 [History Confirmed 10/25/21] calcium carbonate 500 mg calcium (1,250 mg) chewable tablet See Rx Instructions .Route .COMPLEX PRN Indigestion 06/08/21 [History Confirmed 10/25/21] diclofenac sodium 1 % topical gel 2 g topical QID PRN Pain 06/08/21 [History Confirmed 10/25/21] dulaglutide 4.5 mg/0.5 mL subcutaneous pen injector (Trulicity) 4.5 mg subcut QWEEK 10/25/21 [History Confirmed 10/25/21] lactulose 20 gram/30 mL oral solution 20 g PO DAILY PRN Abdominal Distention 10/25/21 [History Confirmed 10/25/21] lactulose 20 gram/30 mL oral solution 20 g PO TID 10/25/21 [History Confirmed 10/25/21] menthol 4 % topical gel (Biofreeze (menthol)) 1 applic topical TID PRN Pain 10/25/21 [History Confirmed 10/25/21] vitamin B complex 1 cap PO DAILY 10/25/21 [History Confirmed 10/25/21] Exam Physical Exam Vital Signs: Temp Pulse Resp BP Pulse Ox O2 Del Method O2 Flow Rate 99 F 112 H 16 111/66 96 Nasal Cannula 2 10/25/21 11:31 10/25/21 11:31 10/25/21 11:31 10/25/21 11:31 10/25/21 11:31 10/25/21 12:11 10/25/21 12:11 Narrative: GEN: Lying flat in bed. Sedated gentleman with morphine. Does not answer my questions. Head: Normal Cephalic, Atraumatic. Eyes: Conjunctiva and sclera clear bilaterally. Nose: External nose and nares normal bilaterally. Mouth: Lips and tongue normal. Neck: No JVD. No thyromegaly. No lymphadenopathy. Lungs: Clear to auscultation bilaterally, no wheezing, no crackles. Heart: Regular rate and rhythm, no murmurs, rubs, or gallops. Abdomen: Soft, normal bowel sounds, no rigidity, guarding, or acute peritoneal signs. Extremities: No swelling or cords in the calves bilaterally, no edema in the ankles bilaterally. Left leg does have shortening and external rotation. Small bump near the proximal femur area. Left upper extremity with mild bruising by the pinky finger. But no pain or tenderness to manipulation of all the left upper extremity: I can manipulate herthumb, all 4 fingers, the wrist, the elbow without apparent pain or movement abnormality. : Flores catheter draining urine which appears to be yellow and a little bit concentrated but without significant cloudiness Skin: No systemic rashes or lesions. Results Lab Results Labs: Laboratory Last Values Corrected WBC 1.4 X10E3/uL (3.8-11.6) L 10/25/21 12:06 Uncorrected WBC Count 1.4 x10E3/uL (4.5-11.0) L 10/25/21 12:06 RBC 3.23 x10E6/uL (3.60-5.00) L 10/25/21 12:06 Hgb 11.5 g/dL (11.8-15.4) L 10/25/21 12:06 Hct 32.9 % (34.0-46.4) L 10/25/21 12:06 MCV 102.0 fl (80-100) H 10/25/21 12:06 MCH 35.7 pg (24.7-34.3) H 10/25/21 12:06 MCHC 35.0 g/dL (32.0-35.0) 10/25/21 12:06 RDW 13.6 % (11.9-15.3) 10/25/21 12:06 Plt Count 39 x10E3/uL (150-450) L* 10/25/21 12:06 MPV 9.8 fl (6.3-10.7) 10/25/21 12:06 Neut % (Auto) 62.9 % (.) 10/25/21 12:06 Lymph % (Auto) 11.3 % (.) 10/25/21 12:06 Oldham % (Auto) 25.1 % (.) 10/25/21 12:06 Eos % (Auto) 0.2 % (.) 10/25/21 12:06 Baso % (Auto) 0.5 % (.) 10/25/21 12:06 Neut # (Auto) 0.9 x10E3/uL (1.8-7.7) L 10/25/21 12:06 Lymph # (Auto) 0.2 x10E3/uL (1.00-4.8) L 10/25/21 12:06 Oldham # (Auto) 0.4 x10E3/uL (0.0-0.8) 10/25/21 12:06 Eos # (Auto) 0.0 x10E3/uL (0.0-0.45) 10/25/21 12:06 Baso # (Auto) 0.0 x10E3/uL (0.0-0.2) 10/25/21 12:06 Nucleated RBC % (auto) 0.4 % (0-0.5) 10/25/21 12:06 Platelet Estimate Decreased (Normal) L 10/25/21 12:06 Plt Morphology Comment Normal (Normal) 10/25/21 12:06 RBC Morphology N/A 10/25/21 12:06 Macrocytosis Slight 10/25/21 12:06 PT 17.6 Seconds (9.0-12.9) H 10/25/21 12:06 INR 1.5 10/25/21 12:06 APTT 48.1 Seconds (25.1-36.5) H 10/25/21 12:06 PHA Creatinine Clear 57.06 10/25/21 12:06 Sodium 131 mmol/L (136-146) L 10/25/21 12:06 Potassium 4.8 mmol/L (3.5-5.1) 10/25/21 12:06 Chloride 103 mmol/L (95-114) 10/25/21 12:06 Carbon Dioxide 19.0 mmol/L (22.0-30.0) L 10/25/21 12:06 BUN 16 mg/dL (9-23) 10/25/21 12:06 Creatinine 0.69 mg/dL (0.44-1.03) 10/25/21 12:06 Est GFR ( Amer) > 60 mL/Min 10/25/21 12:06 Est GFR (Non-Af Amer) > 60 mL/Min 10/25/21 12:06 Glucose 317 mg/dL (70-100) H 10/25/21 12:06 Calcium 8.2 mg/dL (8.2-10.2) 10/25/21 12:06 Magnesium 1.5 mg/dL (1.6-2.6) L 10/25/21 12:06 Iron 99 ug/dL (40-150) 10/25/21 12:06 TIBC 216 ug/dL (255-450) L 10/25/21 12:06 Transferrin 154 mg/dL (180-380) L 10/25/21 12:06 Ferritin 417.2 ng/mL (11-306.8) H 10/25/21 12:06 Total Bilirubin 2.8 mg/dL (0.3-1.2) H 10/25/21 12:06 Direct Bilirubin 0.6 mg/dL (0.0-0.4) H 10/25/21 12:06 Indirect Bilirubin 2.2 mg/dL 10/25/21 12:06 AST 55 U/L (10-42) H 10/25/21 12:06 ALT 34 U/L (10-60) 10/25/21 12:06 Alkaline Phosphatase 104 U/L (32-92) H 10/25/21 12:06 Total Protein 4.9 gm/dL (6.1-7.9) L 10/25/21 12:06 Albumin 2.9 gm/dL (3.2-5.5) L 10/25/21 12:06 Globulin 2.0 gm/dL 10/25/21 12:06 Albumin/Globulin Ratio 1.5 10/25/21 12:06 Prealbumin 6.0 mg/dL (18.0-38.0) L 10/25/21 12:06 TSH 3rd Generation 1.69 uIU/mL (0.45-5.33) 10/25/21 12:06 Blood Type A Positive 10/25/21 12:00 A&P - Hospitalist Assessment/Plan (1) Fracture of proximal end of left femur: (2) Fall from ground level: (3) COVID-19: (4) Hemochromatosis: (5) Cirrhosis: (6) COPD (chronic obstructive pulmonary disease): (7) Diabetes mellitus, type 2: (8) Pancytopenia: (9) Severe protein-calorie malnutrition: (10) Hyponatremia: Plan Assessment: Left hip fracture closed fracture of the proximal femur. Incidental finding of COVID-19 positivity. So far not requiring any supplemental oxygen. Vaccination status not known. Fall onto the same level, presumably at [facility] facility. History of hemochromatosis, requiring phlebotomies in the past until hemoglobin counts became lower. Iron now normal at 99. Was 172 before. Cirrhosis. Has chronic pancytopenia, with thrombocytopenia, likely due to advanced liverdisease. Fortunately coagulation studies are fairly good. PT 17.6, INR 1.5, PTT 48.1. Chronic return to pulmonary disease by history. Diabetes mellitus type 2 by history. Preop prealbumin is very low at 6.0. Therefore has severe protein calorie malnutrition. Plan: Hospital admission, inpatient status. COVID-19 isolation. Close monitoring for any development of COVID-19 symptoms or signs of active disease. Consultation placed to orthopedic surgery. Anticipate surgical procedure later today. Sliding scale insulin as needed for diabetes management. Gentle IV fluids with normal saline at 75 mL an hour until able to take oral food and liquids. I defer DVT prophylaxis decision-making to the orthopedic surgeon, but given pancytopenia perhaps a low-dose 81 mg aspirin would be best. Documented By: Sharath Marques DO [id number] Signed By: <Electronically signed by Sharath Marques, > 10/25/21 [address] [facility] Work Phone: [phone] Hospital Discharge instructions Additional Instructions You tested positive for COVID-19 on 10/25/21. Please see COVID-19 discharge instructions. long-term care facility to manage: -PT/OT to eval and treat -Monitor VS per protocol -High fall risk precautions -Perform orthopedic assessments--- Dx: Left hip fracture with surgical repair (10/25/21) *Please see further instructions below -Perform respiratory assessments---Dx: COVID-19 -Monitor FSBS ACHS -Encourage use of incentive spirometry every 4 hours as tolerated -Dietitian recommendations: *Beneprotein, 1 packet, TID with meals *Magic Cup, 1 container, BID with meals -Care to be managed by [facility] providers. Orthopedic surgery discharge instructions You are to remain weightbearing as tolerated on your operative extremity. Leave your surgical dressing on for two weeks after surgery. Two weeks after surgery you may leave the incision open to air as long as there is no drainage. Ice the operative area for the first week after surgery, 20 minutes on and 20 minutes off for 3 hours a day. Continue therapy as instructed. Work on range of motion exercises as instructed in the hospital. Take all medications as prescribed. You should take calcium and vitamin D supplementation as well as a multivitamin. I also recommend using boost shakes for protein supplementation which will help with healing. Your sutures/yoanna may be removed 3 weeks postoperatively as long as there is no incisional drainage or issues. X-ray should be taken of your operative site at 6 weeks and 3 months postoperatively. These can be taken at your care facility, if you are still residing in one, and sent to Dr. Moralez's office for review. You do not need to come in if you are still staying at a care facility. If you have been discharged from a care facility, or you are discharged home after your hospital stay, you should follow-up with Dr. Moralez at 3 weeks, 6 weeks and 3 months postoperatively. Please monitor wound for any increased redness, irritation, pain or drainage. If there are any questions or concerns please call Dr. Moralez's office.[facility] Work Phone: [phone]) 672-485207-01-2022 History general Narrative - Reported* Type Description Date Surgical History ankle surgery-left Surgical History exploratory lap Surgical History hysterectomy Surgical History LEFT HIP REPLACEMENT 10/2021 Hospitalization History see surgical hx [facility] [employer] Other 04-12-2022 Evaluation note* Encounter Date Diagnosis Assessment Notes Treatment Notes Treatment Clinical Notes Jul, Hemochromatosis (ICD-10 - E83.119) 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 she had got phlebotomy under Dr. Lazo care. She get two phlebotomy per monthsince about Mar 2021 to July 2021. Has not had liver biopsy. will hold phlebotomy as ferritin is 279 in june 2021 and she is pretty anemic. f/u 6 months. Follow Up Instructions: f/u in 6 months. check cbc, cmp, ferritin, iron, iron saturation, epo, haptoglobin, yoselyn test, retic count prior to f/u. - History of Present Illness Chief Complaint: Patient is a former patient of Dr Lazo here for a 6 week follow up for hemochromatosis. Has outside labs for review. No concerns voiced at this time. HPI: 06/04/2021: Hetal presents today in follow-up for her hemochromatosis. Her last ferritin level was 279 on 05/24/21. She states the facility she is currently at does not draw her labs every 2wks like they are supposed to, so she usually endsup having to sit at [facility] and wait for her lab results prior to getting phlebotomy each time. We will send updated orders to her facility and confirm they are aware of these. She continues to have 1 unit phlebotomy every 2 weeks and we are seeing a steady decline in her ferritin. Goal is <100, so we will continue with the current treatment plan for now. She has questions regarding any further testing on her liver. We discussed briefly the tests that Dr. Lazo had previously mentioned of liver biopsy and MRI, and that from our standpoint the tests likely wouldn't change our care. Elizabethwill decide if she wants to do anything further and let us know next month. She would like to follow-up in 1 month to establish with a new physician and re-check her counts. She also notes intermittent right upper to mid quadrant pain related to her liver, but this is absent today, nontender to palpation and the liver is not enlarged on exam. We will continue to follow. 01/14/2021: Hetal presents in follow-up. Her serum iron is 172, total iron- binding capacity 202 with a calculated transferrin saturation at 85% clearly elevated. Serum ferritin is elevated at 327. The patient has a bilirubin of 3.0. White blood cell count was 2.2 with platelet count of 41. This is a 65-year-old female who is referred by Dr. Hua and follows with Dr. Ann in [place]. She has seen Dr. Hua with evidence of cirrhosis. She is an alcoholic having been off of alcohol for about a year now. Her motherhad alcoholism and liver disease. The patient also has 2 mutations identified in the hereditary hemochromatosis gene work-up, 2 mutations with C282Y and H 63D. She is diabetic. Her mother had cirrhosis but also alcoholism. Patient's labs were reviewed showing a ferritin of 390. Hep B and C assays are negative. CBC shows a white count of 2.2 and platelet count of 41. Normal hemoglobin but MCV at 103.5. 2 mutations identified in hereditary hemochromatosis gene analysis, C282Y and H 63D. Today in follow-up we reviewed our findings. Her iron stores are clearly elevated consistent with iron overload, hemochromatosis. 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 She is diabetic with evidence of cirrhosis. If we were to refer her to liver biopsy to ascertain liver stores orrefer her for liver MRI I would argue that if the results are positive or negative I still would recommend phlebotomy program. I did review with her how alcohol can skew the findings of patients with iron overload and cirrhosis. Thepatient is diabetic, with cirrhosis and clear evidence of iron overload. We do have our genetic findings as well. I would recommend a phlebotomy program at this time. We also talked about her children and family and getting them tested. 07/12/21 she has been getting phlebotomy every other week since maybe apr. Recent labs did not include cbc or iron studies. She hasnt had iron studies eddie while, last month her hb was in 9-10 range and plt 40s. feels well overall. - Physical Exam Ecog PS 2 she is in assisted living home. she uses a wheelchair for long distances sometimes. General : patient is alert and oriented to person place and time, no acute distress. Neck: no JVD or thyromegaly. Lymph: no cervical, supraclavicular, axillary adenopathy. Heart: regular rate and rhythm no murmurs rubs or gallops. Abdomen: soft nontender nondistended, no hepatosplenomegaly. Lungs: clear to auscultation bilaterally. No wheezes, rales, rhonchi. Extremities: no clubbing cyanosis or edema. - Time with Patient Coordination of Care & Counseling Time: Greater than 50% of time spent with patient was for coordination of care (as documented) and [id number] counseling of patient and/or family. [facility] - Medical History Medical History: Medical History (Last Reviewed 12/29/20 @ 11:36 by Niko Lazo MD) Acquired coagulation factor deficiency Alcoholic cirrhosis Anemia Constipation COPD (chronic obstructive pulmonary disease) Depressive disorder Diabetes mellitus, type 2 Hepatic failure Hypertension Hypokalemia Insomnia Pancytopenia Right heart failure - Surgical History Surgical History: Surgical History (Last Reviewed 12/29/20 @ 11:36 by Niko Lazo MD) History of ankle surgery left History of hysterectomy Hx of exploratory laparotomy - Family History Family History: Family History (Last Reviewed 12/29/20 @ 11:36 by Niko Lazo MD) Brother Diabetes Mother No problems noted. Mother Osteoporosis - Social History Smoking Status: Former smoker Tobacco Type: cigarettes Substance Use Type: None Additional Data - Additional Objective Data Height/Weight: Height 5 ft 3.5 in Weight 48.58 kg Vital Signs: 07/12/21 11:18 Temperature 98.1 F Pulse Rate [Left Brachial] 70 Respiratory Rate 20 Blood Pressure [Right Arm] 93/53 L 02 Sat by Pulse Oximetry 97 - Lab Results Diagram of Most Recent CBC and CMP 12/29/20 11:03 - Home Medications and Allergies Allergies/Adverse Reactions: Allergies bupropion Allergy (Verified 06/04/21 10:54) Unknown Reaction Home Medications: Home Medications acetaminophen 325 mg tablet 650 mg PO Q4H PRN 10/15/20 [History Confirmed 06/04/21] cholecalciferol (vitamin D3) 25 mcg (1,000 unit) tablet 25 mcg PO DAILY 10/15/20[History Confirmed 06/04/21] dulaglutide 1.5 mg/0.5 mL subcutaneous pen injector (Trulicity) 1.5 mg SUBCUT QWEEK 10/15/20 [History Confirmed 06/04/21] ergocalciferol (vitamin D2) 50,000 unit tablet 50,000 unit PO Q5D 10/15/20 [History Confirmed 06/04/21] furosemide 20 mg tablet 20 mg PO DAILY 10/15/20 [History Confirmed 06/04/21] insulin lispro 100 unit/mL subcutaneous pen (Humalog KwikPen (U-100) Insulin) 1 unit SUBCUT ACHS 10/15/20 [History Confirmed 06/04/21] lactulose 10 gram/15 mL oral solution 20 g PO TID 10/15/20 [History Confirmed 06/04/21] melatonin 3 mg capsule 5 mg PO HS PRN 10/15/20 [History Confirmed 06/04/21] menthol 4 % topical gel (Biofreeze (menthol)) 1 applic TOPICAL TID PRN 10/15/20 [History Confirmed 06/04/21] metformin 500 mg tablet 500 mg PO DAILY 10/15/20 [History Confirmed 06/04/21] multivitamin 1 tab PO DAILY 10/15/20 [History Confirmed 06/04/21] paroxetine HCl 20 mg tablet 20 mg PO DAILY 10/15/20 [History Confirmed 06/04/21] polyethylene glycol 3350 17 gram oral powder packet (Miralax) 17 g PO DAILY 10/15/20 [History Confirmed 06/04/21] potassium chloride 20 mEq tablet,extended release 20 meq PO DAILY 10/15/20 [History Confirmed 06/04/21] rifaximin 550 mg tablet 550 mg PO BID 10/15/20 [History Confirmed 06/04/21] spironolactone 25 mg tablet 25 mg PO DAILY 10/15/20 [History Confirmed 06/04/21] vitamin B complex 1 tab PO DAILY 10/15/20 [History Confirmed 06/04/21] dextrose 40 % oral gel (Glucose Gel) 10 g PO Q15M PRN 12/29/20 [History Confirmed 06/04/21] glucagon HCl 1 mg solution for injection (Glucagon (HCl) Emergency Kit) 1 mg SUBCUT Q20M PRN 12/29/20 [History Confirmed 06/04/21] insulin glargine 100 unit/mL subcutaneous solution 15 unit SUBCUT QAM 12/29/20 [History Confirmed 06/04/21] albuterol sulfate 90 mcg/actuation aerosol inhaler 2 puff INHALATION Q4-6H PRN 06/04/21 [History Confirmed 06/04/21] ipratropium 0.5 mg-albuterol 3 mg (2.5 mg base)/3 mL nebulization soln 3 ml INHALATION Q6H PRN 06/04/21 [History Confirmed 06/04/21] lidocaine 4 % topical patch 1 patch TOPICAL BID PRN 06/04/21 [History Confirmed 06/04/21] mirtazapine 15 mg tablet (Remeron) 15 mg PO QHS 06/04/21 [History Confirmed 06/04/21] nicotine (polacrilex) 2 mg gum (Nicorette) 2 mg BUCCAL Q1-2H PRN 06/04/21 [History Confirmed 06/04/21] benzonatate 100 mg capsule 100 mg PO TID PRN 06/08/21 [History Confirmed 06/08/21] calcium carbonate 500 mg calcium (1,250 mg) chewable tablet See Rx Instructions .ROUTE .COMPLEX PRN 06/08/21 [History Confirmed 06/08/21] diclofenac sodium 1 % topical gel 2 g TOPICAL QID 06/08/21 [History Confirmed 06/08/21] Dictated By: Xander Metcalf II, DO DD/ 1132 Signed By: <Electronically signed by Xander Metcalf II, DO> 07/12/21 [address] [facility] Work Phone: [phone] 481-225703-23-2022 Evaluation note* Encounter Date Diagnosis Assessment Notes Treatment Notes Treatment Clinical Notes Jun, Cirrhosis (ICD-10 - K74.60) RTO 6 MONTHS CHECK WITH JAZZY GALVEZ IN PATERSON ABOUT OTHER LABS Jun, Hemochromatosis (ICD-10 - E83.119) [facility] [employer] Other 03-09-2022 Evaluation note* Encounter Date Diagnosis Assessment Notes Treatment Notes Treatment Clinical Notes Jun, Alcoholic cirrhosis of liver with ascites (ICD-10 - K70.31) Jun, Hemochromatosis (ICD-10 - E83.119) [employer] Other 03-04-2022 Progress note Author Hetal Gracia [facility] June 04, 2021 1:45pm Note Date/Time June 04, 2021 11:1 1am [facility] [place] [address] Hem/Onc Follow Up Note - OP Signed Patient: Hetal Jasso MR#: [id number] 427 : 1955 Acct:[id number] Age/Sex: 65 / F Type: REG RCR Copies to: DO Rc Cai MD~ Subjective Date/Time of Service: Date of Service: 06/04/2021 Time of Service: 11:11 Chief Complaint: Patient is here today for 4 month follow up visit for Hemochromatosis and to go over labs HPI: 06/04/2021: Hetal presents today in follow-up for her hemochromatosis. Her last ferritin level was 279 on 05/24/21. She states the facility she is currently at does not draw her labs every 2wks like they are supposed to, so she usually endsup having to sit at [facility] and wait for her lab results prior to getting phlebotomy each time. We will send updated orders to her facility and confirm they are aware of these. She continues to have 1 unit phlebotomy every 2 weeks and we are seeing a steady decline in her ferritin. Goal is <100, so we will continue with the current treatment plan for now. She has questions regarding any further testing on her liver. We discussed briefly the tests that Dr. Lazo had previously mentioned of liver biopsy and MRI, and that from our standpoint the tests likely wouldn't change our care. Elizabethwill decide if she wants to do anything further and let us know next month. She would like to follow-up in 1 month to establish with a new physician and re-check her counts. She also notes intermittent right upper to mid quadrant pain related to her liver, but this is absent today, nontender to palpation and the liver is not enlarged on exam. We will continue to follow. 01/14/2021: Hetal presents in follow-up. Her serum iron is 172, total iron- binding capacity 202 with a calculated transferrin saturation at 85% clearly elevated. Serum ferritin is elevated at 327. The patient has a bilirubin of 3.0. White blood cell count was 2.2 with platelet count of 41. This is a 65-year-old female who is referred by Dr. Hua and follows with Dr. Ann in [place]. She has seen Dr. Hua with evidence of cirrhosis. She is an alcoholic having been off of alcohol for about a year now. Her motherhad alcoholism and liver disease. The patient also has 2 mutations identified in the hereditary hemochromatosis gene work-up, 2 mutations with C282Y and H 63D. She is diabetic. Her mother had cirrhosis but also alcoholism. Patient's labs were reviewed showing a ferritin of 390. Hep B and C assays are negative. CBC shows a white count of 2.2 and platelet count of 41. Normal hemoglobin but MCV at 103.5. 2 mutations identified in hereditary hemochromatosis gene analysis, C282Y and H 63D. Today in follow-up we reviewed our findings. Her iron stores are clearly elevated consistent with iron overload, hemochromatosis. 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 She is diabetic with evidence of cirrhosis. If we were to refer her to liver biopsy to ascertain liver stores orrefer her for liver MRI I would argue that if the results are positive or negative I still would recommend phlebotomy program. I did review with her how alcohol can skew the findings of patients with iron overload and cirrhosis. Thepatient is diabetic, with cirrhosis and clear evidence of iron overload. We do have our genetic findings as well. I would recommend a phlebotomy program at this time. We also talked about her children and family and getting them tested. [facility] - Medical History Medical History: Medical History (Last Reviewed 12/29/20 @ 11:36 by Niko Lazo MD) Acquired coagulation factor deficiency Alcoholic cirrhosis Anemia Constipation COPD (chronic obstructive pulmonary disease) Depressive disorder Diabetes mellitus, type 2 Hepatic failure Hypertension Hypokalemia Insomnia Pancytopenia Right heart failure - Surgical History Surgical History: Surgical History (Last Reviewed 12/29/20 @ 11:36 by Niko Lazo MD) History of ankle surgery left History of hysterectomy Hx of exploratory laparotomy - Family History Family History: Family History (Last Reviewed 12/29/20 @ 11:36 by Niko Lazo MD) Brother Diabetes Mother No problems noted. Mother Osteoporosis - Social History Smoking Status: Former smoker Tobacco Type: cigarettes Substance Use Type: None Home Medications & Allergies Allergies bupropion Allergy (Verified 06/04/21 10:54) Unknown Reaction Home Medications acetaminophen 325 mg tablet 650 mg PO Q4H PRN 10/15/20 [History Confirmed 01/14/21] cholecalciferol (vitamin D3) 25 mcg (1,000 unit) tablet 25 mcg PO DAILY 10/15/20[History Confirmed 01/14/21] dulaglutide 1.5 mg/0.5 mL subcutaneous pen injector (Trulicity) 1.5 mg SUBCUT QWEEK 10/15/20 [History Confirmed 01/14/21] ergocalciferol (vitamin D2) 50,000 unit tablet 50,000 unit PO Q5D 10/15/20 [History Confirmed 01/14/21] furosemide 20 mg tablet 20 mg PO DAILY 10/15/20 [History Confirmed 01/14/21] insulin lispro 100 unit/mL subcutaneous pen (Humalog KwikPen (U-100) Insulin) 1 unit SUBCUT ACHS 10/15/20 [History Confirmed 01/14/21] lactulose 10 gram/15 mL oral solution 20 g PO TID 10/15/20 [History Confirmed 01/14/21] melatonin 3 mg capsule 3 mg PO HS PRN 10/15/20 [History Confirmed 01/14/21] menthol 4 % topical gel (Biofreeze (menthol)) 1 applic TOPICAL TID PRN 10/15/20 [History Confirmed 01/14/21] metformin 500 mg tablet 500 mg PO DAILY 10/15/20 [History Confirmed 01/14/21] multivitamin 1 tab PO DAILY 10/15/20 [History Confirmed 01/14/21] paroxetine HCl 20 mg tablet 20 mg PO DAILY 10/15/20 [History Confirmed 01/14/21] polyethylene glycol 3350 17 gram oral powder packet (Miralax) 17 g PO DAILY 10/15/20 [History Confirmed 01/14/21] potassium chloride 20 mEq tablet,extended release 20 meq PO DAILY 10/15/20 [History Confirmed 01/14/21] rifaximin 550 mg tablet 550 mg PO BID 10/15/20 [History Confirmed 01/14/21] spironolactone 25 mg tablet 25 mg PO DAILY 10/15/20 [History Confirmed 01/14/21] vitamin B complex 1 tab PO DAILY 10/15/20 [History Confirmed 01/14/21] dextrose 40 % oral gel (Glucose Gel) 10 g PO Q15M PRN 12/29/20 [History Confirmed 01/14/21] glucagon HCl 1 mg solution for injection (Glucagon (HCl) Emergency Kit) 1 mg SUBCUT Q20M PRN 12/29/20 [History Confirmed 01/14/21] insulin glargine 100 unit/mL subcutaneous solution 15 unit SUBCUT QAM 12/29/20 [History Confirmed 01/14/21] mirtazapine 15 mg tablet (Remeron) 15 mg PO QHS 06/04/21 [History Confirmed 06/04/21] Objective - Height/Weight Height/Weight: Height 5 ft 3.5 in Weight 47.174 kg - Vital Signs Vital Signs: 06/04/21 10:49 Temperature 98.0 F Pulse Rate [Left Brachial] 77 Respiratory Rate 16 Blood Pressure [Right Arm] 103/70 02 Sat by Pulse Oximetry 97 Physical Exam Narrative: General : patient is alert and oriented to person place and time, no acute distress. Neck: no JVD or thyromegaly. Lymph: no cervical, supraclavicular, axillary adenopathy. Heart: regular rate and rhythm no murmurs rubs or gallops. Abdomen: soft nontender nondistended, no hepatosplenomegaly. Lungs: clear to auscultation bilaterally. No wheezes, rales, rhonchi. Extremities: no clubbing cyanosis or edema. Results - Labs Labs: Diagram of Most Recent CBC and CMP 12/29/20 11:03 Assessment and Plan (1) Hemochromatosis Proceed with a phlebotomy program. Because of her small body habitus we will recommend phlebotomy of 1 unit followed by another unit in 2 weeks. We will then see her in follow-up to check her iron stores again. We did discuss liver biopsy and liver MRI to ascertain iron stores. Dr. Lazowould argue in this situation if it were positive or negative we would still have enough evidence to indicate iron overload/hemochromatosis and recommend a phlebotomy program. This was again discussed at her 06/04/21 visit. She would liketo talk more about this at her next appointment with the new physician. The patient does live in an assisted care/assisted living facility in [facility] has her phlebotomy done at [place] every other week. We will continue with this as planned with cbc and ferritin every 2 weeks as well. Goal remains ferritin <100 - Time with Patient Coordination of Care & Counseling Time: Greater than 50% of time spent with patient was for coordination of care (as documented) and tpal-bi-ribc counseling of patient and/or family. Dictated By: Hetal Gracia APRN DD/ 1111 Signed By: <Electronically signed by ADE Gracia> 06/04/21 1345 [facility] Work Phone: [phone] 413-791612-16-2021 Evaluation note* Encounter Date Diagnosis Assessment Notes Treatment Notes Treatment Clinical Notes Mar, Cirrhosis (ICD-10 - K74.60) OBTAIN RECENT LABS ( CBC AND FERRITIN) FROM DR LAZO IN [facility] IN 3 MONTHS WITH LABS PRIOR [employer] Other 10-26-2021 Evaluation note* Encounter Date Diagnosis Assessment Notes Treatment Notes Treatment Clinical Notes Jan, Cirrhosis (ICD-10 - K74.60) PATIENT TO CONTINUE ON MEDICATION. LABS ORDERED Jan, Abdominal pain (ICD-10 - R10.9) PATIENT STATES THAT THIS WILL COME AND GO. [employer] Other 10-14-2021 Progress note Author Niko Lazo [facility] January 14, 2021 3:36pm Note Date/Time January 14, 2021 3 :27pm [facility] [place] [id number] Hem/Onc Follow Up Note - OP Signed Patient: Hetal Jasso MR#: [id number] 427 : 1955 Acct:[id number] Age/Sex: 65 / F Type: REG RCR Copies to: Marcelo Ann,DO Rc Saravia MD~ Subjective Date/Time of Service: Date of Service: 01/14/2021 Time of Service: 15:27 Chief Complaint: Patient is here for a 2 week follow up with labs for review. Patient voices no concerns at this time. HPI: Hetal presents in follow-up. Her serum iron is 172, total iron-binding capacity 202 with a calculated transferrin saturation at 85% clearly elevated. Serum ferritin is elevated at 327. The patient has a bilirubin of 3.0. White blood cell count was 2.2 with platelet count of 41. This is a 65-year-old female who is referred by Dr. Hua and follows with Dr. Ann in [place]. She has seen Dr. Hua with evidence of cirrhosis. She is an alcoholic having been off of alcohol for about a year now. Her motherhad alcoholism and liver disease. The patient also has 2 mutations identified in the hereditary hemochromatosis gene work-up, 2 mutations with C282Y and H 63D. She is diabetic. Her mother had cirrhosis but also alcoholism. Patient's labs were reviewed showing a ferritin of 390. Hep B and C assays are negative. CBC shows a white count of 2.2 and platelet count of 41. Normal hemoglobin but MCV at 103.5. 2 mutations identified in hereditary hemochromatosis gene analysis, C282Y and H 63D. Today in follow-up January 14, 2021 we reviewed our findings. Her iron stores are clearly elevated consistent with iron overload, hemochromatosis. 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 She is diabetic with evidence of cirrhosis. If we were to refer her to liver biopsy to ascertain liver stores or refer her for liver MRI I would argue that if the results are positive or negative I still would recommend phlebotomy program. I did review with her how alcohol can skew the findings of patients with iron overload and cirrhosis. The patient is diabetic, with cirrhosis and clear evidence of iron overload. We do have our genetic findings as well. I would recommend a phlebotomy program at this time. We also talked about her children and family and getting them tested. [facility] - Medical History Medical History: Medical History (Last Reviewed 12/29/20 @ 11:36 by Niko Lazo MD) Acquired coagulation factor deficiency Alcoholic cirrhosis Anemia Constipation COPD (chronic obstructive pulmonary disease) Depressive disorder Diabetes mellitus, type 2 Hepatic failure Hypertension Hypokalemia Insomnia Pancytopenia Right heart failure - Surgical History Surgical History: Surgical History (Last Reviewed 12/29/20 @ 11:36 by Niko Lazo MD) History of ankle surgery left History of hysterectomy Hx of exploratory laparotomy - Family History Family History: Family History (Last Reviewed 12/29/20 @ 11:36 by Niko Lazo MD) Brother Diabetes Mother No problems noted. Mother Osteoporosis - Social History Smoking Status: Former smoker Tobacco Type: cigarettes Substance Use Type: None Home Medications & Allergies Allergies bupropion Allergy (Verified 08/20/20 07:53) Unknown Reaction Home Medications acetaminophen 325 mg tablet 650 mg PO Q4H PRN 10/15/20 [History Confirmed 01/14/21] cholecalciferol (vitamin D3) 25 mcg (1,000 unit) tablet 25 mcg PO DAILY 10/15/20[History Confirmed 01/14/21] dulaglutide 1.5 mg/0.5 mL subcutaneous pen injector (Trulicity) 1.5 mg SUBCUT QWEEK 10/15/20 [History Confirmed 01/14/21] ergocalciferol (vitamin D2) 50,000 unit tablet 50,000 unit PO Q5D 10/15/20 [History Confirmed 01/14/21] furosemide 20 mg tablet 20 mg PO DAILY 10/15/20 [History Confirmed 01/14/21] insulin lispro 100 unit/mL subcutaneous pen (Humalog KwikPen (U-100) Insulin) 1 unit SUBCUT ACHS 10/15/20 [History Confirmed 01/14/21] lactulose 10 gram/15 mL oral solution 20 g PO TID 10/15/20 [History Confirmed 01/14/21] melatonin 3 mg capsule 3 mg PO HS PRN 10/15/20 [History Confirmed 01/14/21] menthol 4 % topical gel (Biofreeze (menthol)) 1 applic TOPICAL TID PRN 10/15/20 [History Confirmed 01/14/21] metformin 500 mg tablet 500 mg PO DAILY 10/15/20 [History Confirmed 01/14/21] multivitamin 1 tab PO DAILY 10/15/20 [History Confirmed 01/14/21] paroxetine HCl 20 mg tablet 20 mg PO DAILY 10/15/20 [History Confirmed 01/14/21] polyethylene glycol 3350 17 gram oral powder packet (Miralax) 17 g PO DAILY 10/15/20 [History Confirmed 01/14/21] potassium chloride 20 mEq tablet,extended release 20 meq PO DAILY 10/15/20 [History Confirmed 01/14/21] rifaximin 550 mg tablet 550 mg PO BID 10/15/20 [History Confirmed 01/14/21] spironolactone 25 mg tablet 25 mg PO DAILY 10/15/20 [History Confirmed 01/14/21] vitamin B complex 1 tab PO DAILY 10/15/20 [History Confirmed 01/14/21] dextrose 40 % oral gel (Glucose Gel) 10 g PO Q15M PRN 12/29/20 [History Confirmed 01/14/21] glucagon HCl 1 mg solution for injection (Glucagon (HCl) Emergency Kit) 1 mg SUBCUT Q20M PRN 12/29/20 [History Confirmed 01/14/21] insulin glargine 100 unit/mL subcutaneous solution 15 unit SUBCUT QAM 12/29/20 [History Confirmed 01/14/21] Objective - Height/Weight Height/Weight: Height 5 ft 3.5 in Weight 47.763 kg - Vital Signs Vital Signs: 01/14/21 14:59 Temperature 97.7 F Pulse Rate [Left Brachial] 90 Respiratory Rate 20 Blood Pressure [Right Arm] 96/55 L 02 Sat by Pulse Oximetry 97 - Emotional Needs Assessment Emotional Needs Assessment: Emotional Needs Identified? No Physical Exam Narrative: Noncontributory - ECOG Performance Status ECOG Score: 2 Results - Labs Labs: Diagram of Most Recent CBC and CMP 12/29/20 11:03 Assessment and Plan (1) Hemochromatosis Proceed with a phlebotomy program. Because of her small body habitus I will recommend phlebotomy of 1 unit followed by another unit in 2 weeks. I will thensee her in follow-up to check her iron stores again. We did discuss liver biopsy and liver MRI to ascertain iron stores. I would argue in this situation if it were positive or negative I would still have enough evidence to indicate iron overload/hemochromatosis and recommend a phlebotomy program. The patient does live in an assisted care/assisted living facility in [facility]. I will follow-up with her at our [facility] clinic within a month or so. - Time with Patient Coordination of Care & Counseling Time: Greater than 50% of time spent with patient was for coordination of care (as documented) and bxhm-[id number] counseling of patient and/or family. Dictated By: Niko Lazo MD DD/ 26 Signed By: <Electronically signed by MD Niko Lazo> 01/14/21 1536 [facility] Work Phone: [phone]) 874-817009-28-2021 Consult note Author Niko Lazo [facility] December 29, 2020 2:50pm Note Date/Time December 29, 2020 11:36am [facility] [place] [address] Hem/Onc Consult Note - OP Signed with Addenda Patient: Hetal Jasso MR#: [id number] 427 : 1955 Acct:[id number] Age/Sex: 65 / F Type: REG RCR Copies to: Marcelo Ann,DO Rc Saravia MD~ ADDENDUM1 Serum iron equals 172 with total iron-binding capacity at 202. Transferrin saturation calculated by serum iron divided by TIBC equals 85%, clearly elevated. Addendum Dictated By: MD Niko Lazo Addendum Signed By: 12/29/20 1450 Addendum Cosigned By: DD/ TD/TT: 12/29/20 HPI Date/Time of Service: Date of Service: 12/29/2020 Time of Service: 11:33 Referring Provider/PCP: Referring Provider: Rc Saravia MD PCP: Marcelo Ann DO - History of Present Illness Reason for Consultation: Cirrhosis, likely hemochromatosis Chief Complaint: Patient is here today for referral from Dr Saravia's office for Hemachromatosis HPI: This is a 65-year-old female who is referred by Dr. Hua and follows with Dr. Ann in [place]. She has seen Dr. Hua with evidence of cirrhosis. She is an alcoholic having been off of alcohol for about a year now. Her motherhad alcoholism and liver disease. The patient also has 2 mutations identified in the head of right ear hemochromatosis gene work-up, 2 mutations with C282Y and H 63D. She is diabetic. Her mother had cirrhosis but also alcoholism. Patient's labs were reviewed showing a ferritin of 390. Hep B and C assays are negative. CBC shows a white count of 2.2 and platelet count of 41. Normal hemoglobin but MCV at 103.5. 2 mutations identified in hereditary hemochromatosis gene analysis, C282Y and H 63D. [facility] - Medical History Medical History: Medical History (Last Reviewed 12/29/20 @ 11:36 by Niko Lazo MD) Acquired coagulation factor deficiency Alcoholic cirrhosis Anemia Constipation COPD (chronic obstructive pulmonary disease) Depressive disorder Diabetes mellitus, type 2 Hepatic failure Hypertension Hypokalemia Insomnia Pancytopenia Right heart failure - Surgical History Surgical History: Surgical History (Last Reviewed 12/29/20 @ 11:36 by Niko Lazo MD) History of ankle surgery left History of hysterectomy Hx of exploratory laparotomy - Family History Family History: Family History (Last Reviewed 12/29/20 @ 11:36 by Niko Lazo MD) Brother Diabetes Mother No problems noted. Mother Osteoporosis - Social History Smoking Status: Former smoker Tobacco Type: cigarettes Substance Use Type: None Home Medications & Allergies Allergies bupropion Allergy (Verified 08/20/20 07:53) Unknown Reaction Home Medications acetaminophen 325 mg tablet 650 mg PO Q4H PRN 10/15/20 [History Confirmed 12/29/20] cholecalciferol (vitamin D3) 25 mcg (1,000 unit) tablet 25 mcg PO DAILY 10/15/20[History Confirmed 12/29/20] dulaglutide 1.5 mg/0.5 mL subcutaneous pen injector (Trulicity) 1.5 mg SUBCUT QWEEK 10/15/20 [History Confirmed 12/29/20] ergocalciferol (vitamin D2) 50,000 unit tablet 50,000 unit PO Q5D 10/15/20 [History Confirmed 12/29/20] furosemide 20 mg tablet 20 mg PO DAILY 10/15/20 [History Confirmed 12/29/20] insulin lispro 100 unit/mL subcutaneous pen (Humalog KwikPen (U-100) Insulin) 1 unit SUBCUT ACHS 10/15/20 [History Confirmed 12/29/20] lactulose 10 gram/15 mL oral solution 20 g PO TID 10/15/20 [History Confirmed 12/29/20] melatonin 3 mg capsule 3 mg PO HS PRN 10/15/20 [History Confirmed 12/29/20] menthol 4 % topical gel (Biofreeze (menthol)) 1 applic TOPICAL TID PRN 10/15/20 [History Confirmed 12/29/20] metformin 500 mg tablet 500 mg PO DAILY 10/15/20 [History Confirmed 12/29/20] multivitamin 1 tab PO DAILY 10/15/20 [History Confirmed 12/29/20] paroxetine HCl 20 mg tablet 20 mg PO DAILY 10/15/20 [History Confirmed 12/29/20] polyethylene glycol 3350 17 gram oral powder packet (Miralax) 17 g PO DAILY 10/15/20 [History Confirmed 12/29/20] potassium chloride 20 mEq tablet,extended release 20 meq PO DAILY 10/15/20 [History Confirmed 12/29/20] rifaximin 550 mg tablet 550 mg PO BID 10/15/20 [History Confirmed 12/29/20] spironolactone 25 mg tablet 25 mg PO DAILY 10/15/20 [History Confirmed 12/29/20] vitamin B complex 1 tab PO DAILY 10/15/20 [History Confirmed 12/29/20] dextrose 40 % oral gel (Glucose Gel) 10 g PO Q15M PRN 12/29/20 [History Confirmed 12/29/20] glucagon HCl 1 mg solution for injection (Glucagon (HCl) Emergency Kit) 1 mg SUBCUT Q20M PRN 12/29/20 [History Confirmed 12/29/20] insulin glargine 100 unit/mL subcutaneous solution 15 unit SUBCUT QAM 12/29/20 [History Confirmed 12/29/20] Objective - Height/Weight Height/Weight: Height 5 ft 3.5 in Weight 48.534 kg - Vital Signs Vital Signs: 12/29/20 10:34 Temperature 98.0 F Pulse Rate [Left Brachial] 77 Respiratory Rate 20 Blood Pressure [Right Arm] 84/57 L 02 Sat by Pulse Oximetry 98 - Emotional Needs Assessment Emotional Needs Assessment: Emotional Needs Identified? No Physical Exam Narrative: The patient is in a wheelchair. She is in no acute distress. She is suntanned. Extraocular muscles are intact. Neck shows no thyromegaly or jugular venous tension. Lungs audibly with good air exchange - ECOG Performance Status ECOG Score: 2 Results - Labs Labs: Diagram of Most Recent CBC and CMP 12/29/20 11:03 Labs - Last 7 Days 12/29/20 11:03: Corrected WBC 2.2 L, Uncorrected WBC Count 2.2 L, RBC 3.56 L, Hgb 13.0, Hct 36.8, MCV 103.5 H, MCH 36.6 H, MCHC 35.3 H, RDW 13.5, Plt Count 41L, MPV 9.5, Nucleated RBC % (auto) 0.1 Assessment and Plan (1) Cirrhosis History of alcoholism but also two mutations identified in hereditary hemochromatosis gene work-up. At this time we will check serum iron, total iron-binding capacity, transferrin saturation. I will also recheck her ferritin. We will see her in 2 weeks. The question is how much of her liver disease is related to alcoholism versus hemochromatosis and whether a dedicated phlebotomy program is thereby indicated. I will see her in 1 week for further discussion. - Time with Patient Coordination of Care & Counseling Time: Greater than 50% of time spent with patient was for coordination of care (as documented) and efpq-fj-[id number] counseling of patient and/or family. Dictated By: Niko Lazo MD DD/ 1133 Signed By: <Electronically signed by MD Niko Lazo> 12/29/20 1134 [facility] Work Phone: [phone] History of Present illness Narrative* she has been noted to have ascites, thrombocytopenia and imaging consistent with cirrhosis sec to chronic heavy alcohol use which ended 2 years ago. She feels poorly and has resided in a nursing homefor some time due to brittle diabetes . She has COPD but recently stopped smoking per her report. she has no close supports or persons who can help in the state of [place]. * Upper Gastrointestinal: no abdominal pain, no eructation, no heartburn, no jaundiced, no pain whileswallowing, no regurgitation, no vomiting. * Lower Gastrointestinal: no abdominal swelling, no bloating, no constipation, no diarrhea, no fecal incontinence, no bowel urgency, no steatorrhea. * Liver Disease no alteration in sleep wake cycle, no ankle swelling, no cognitive impairment, no confusion, no icterus, no increase in abdominal girth, no jaundice, no lower extremity edema, no musclecramps, no short term memory impairment. * Symptom History: * Modifying Factors: * Associated Symptoms: * Skin: there are no skin symptoms. * Eyes: there are no eye symptoms. * Ears: there are no ear symptoms. * Nose: there are no nasal symptoms. * Mouth/Throat/Teeth: there are no oral symptoms. * Neck: there are no neck symptoms. * Cardiovascular: there are no cardiovascular symptoms. * Respiratory: there are no respiratory symptoms. * Gastrointenstinal: there are no gastrointestinal symptoms. * Musculoskeletal: there are no musculoskeletal symptoms. * Neurological: there are no neurological symptoms. * Endocrine: there are no endocrine symptoms. * Heme:Lymph: there are no hematological/lymphatic symptoms. * Psychiatric: there are no psychological symptoms. * Behavior: there are no behavioral symptoms. [id number] [facility] Work Phone: Evaluation noteNo No [employer] Other Evaluation note* Diagnosis Onset Date Resolution Status Cirrhosis acute COPD (chronic obstructive pulmonary disease) acute COVID-19 acute Diabetes mellitus, type 2 ac [place] [id number] acute Encephalopathy due to COVID-19 virus acute Fall from ground level acute Fracture of proximal end of left femur acute Hemochromatosis acute Hyponatremia acute Pancytopenia acute Severe protein-calorie malnutrition acute [facility] Work Phone: Evaluation note* Diagnosis Onset Date Resolution Status Cirrhosis acute COPD (chronic obstructive pulmonary disease) acute COVID-19 acute Diabetes mellitus, type 2 ac [place] [id number] acute Encephalopathy due to COVID-19 virus acute Fall from ground level acute Fracture of proximal end of left femur acute Hemochromatosis acute Hyponatremia acute Pancytopenia acute Severe protein-calorie malnutrition acute Cirrhosis acute Hemochromatosis acute [facility] Work Phone: Evaluation note* Diagnosis Tibial plateau fracture, left, closed, initial encounter- Primary Closed fracture of left tibial plateau, initial encounter Moderate malnutrition (HCC) Malnutrition of moderate degree documented in this encounter [facility] [employer] [facility] Work Phone: evaluation note* Diagnosis Onset Date Resolution Status Cirrhosis acute Hemochromatosis acute [facility] Work Phone: History general Narrative - Reported* Type Description Date Surgical History ankle surgery-left Surgical History exploratory lap Surgical History hysterectomy Hospitalization History see surgical hx 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 she had got phlebotomy under Dr. Clifton kothari. She get two phlebotomy per monthsince about Mar 2021 to July 2021. Has not had liver biopsy, patient declined. Held phlebotomy in July as her ferritin was 279 and she had been pretty anemic Jan 2022 will re-start at one phlebotomy per month given ferritin up to 358 withhgb 11.6. Patient notes she felt better when she was getting phlebotomy also. Broke her hip in Dec 2021 after a fall. Is recovering well from this. Broke her tibia on her L leg in july 2022. She is now in a brace and wheelchair again. She did not get phlebotomy as she was recovering from her fractures, we recommended reinstituting phlebotomy one unit per month. Continue with 12 month follow-up and repeat labs Continues with pancytopenia, stable overall Liver cirrhosis likely the cause Previously declined further work-up osteoporosis - she has poor oral health, discuss with her TABLE AND DESK FINISHER if she is comfortable continuing the fosamax with the risk of ONJ. Follow Up Instructions: one phlebotomy per month one unit. hold if hb under 11.0. f/u in 1 year. cbc, cmp ferritin, iron saturation, prior to f/u. b12, folate, mma prior to f/u as well. - History of Present Illness Chief Complaint: Patient is here for a 6 month follow up, last seen by Krissy. Has outside labs for review. No concerns voiced at this time. HPI: 06/04/2021: Hetal presents today in follow-up for her hemochromatosis. Her last ferritin level was 279 on 05/24/21. She states the facility she is currently at does not draw her labs every 2wks like they are supposed to, so she usually endsup having to sit at [facility] and wait for her lab results prior to getting phlebotomy each time. We will send updated orders to her facility and confirm they are aware of these. She continues to have 1 unit phlebotomy every 2 weeks and we are seeing a steady decline in her ferritin. Goal is <100, so we will continue with the current treatment plan for now. She has questions regarding any further testing on her liver. We discussed briefly the tests that Dr. Lazo had previously mentioned of liver biopsy and MRI, and that from our standpoint the tests likely wouldn't change our care. Micall decide if she wants to do anything further and let us know next month. She would like to follow-up in 1 month to establish with a new physician and re-check her counts. She also notes intermittent right upper to mid quadrant pain related to her liver, but this is absent today, nontender to palpation and the liver is not enlarged on exam. We will continue to follow. 01/14/2021: Hetal presents in follow-up. Her serum iron is 172, total iron- binding capacity 202 with a calculated transferrin saturation at 85% clearly elevated. Serum ferritin is elevated at 327. The patient has a bilirubin of 3.0. White blood cell count was 2.2 with platelet count of 41. This is a 65-year-old female who is referred by Dr. Hua and follows with Dr. Ann in [place]. She has seen Dr. Hua with evidence of cirrhosis. She is an alcoholic having been off of alcohol for about a year now. Her motherhad alcoholism and liver disease. The patient also has 2 mutations identified in the hereditary hemochromatosis gene work-up, 2 mutations with C282Y and H 63D. She is diabetic. Her mother had cirrhosis but also alcoholism. Patient's labs were reviewed showing a ferritin of 390. Hep B and C assays are negative. CBC shows a white count of 2.2 and platelet count of 41. Normal hemoglobin but MCV at 103.5. 2 mutations identified in hereditary hemochromatosis gene analysis, C282Y and H 63D. Today in follow-up we reviewed our findings. Her iron stores are clearly elevated consistent with iron overload, hemochromatosis. 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 She is diabetic with evidence of cirrhosis. If we were to refer her to liver biopsy to ascertain liver stores orrefer her for liver MRI I would argue that if the results are positive or negative I still would recommend phlebotomy program. I did review with her how alcohol can skew the findings of patients with iron overload and cirrhosis. Thepatient is diabetic, with cirrhosis and clear evidence of iron overload. We do have our genetic findings as well. I would recommend a phlebotomy program at this time. We also talked about her children and family and getting them tested. 07/12/21 she has been getting phlebotomy every other week since apr. Recent labs did not include cbc or iron studies. She hasnt had iron studies eddie while, last month her hb was in 9-10 range and plt 40s. feels well overall. 01/14/22 she feels well overall, is recovering from a fall where she broke her left hip she has some nausea occasionally, but no vomiting. No diarrhea or constipation is not eating well at [facility], feels the food is bad. If she goes out to eat, she can eat a lot without issues denies fever, chills, sweats, chest pain, shortness of breath or other new complaints has not had phlebotomy since July. She notes she felt better when she was getting this done cbc stable overall, iron high with ferritin 358 08/08/22 She is doing ok. on 07/27/22 her recent hb 12. wbc 2.2, plt 65K. Her iron sat was 84% and ferritn 345 - Physical Exam Ecog PS 2 she is in assisted living home. she uses a wheelchair General : patient is alert and oriented to person place and time, no acute distress. Neck: no JVD or thyromegaly. Lymph: no cervical, supraclavicular, axillary adenopathy. Heart: regular rate and rhythm no murmurs rubs or gallops. Abdomen: soft nontender nondistended, no hepatosplenomegaly. Lungs: clear to auscultation bilaterally. No wheezes, rales, rhonchi. Extremities: no clubbing cyanosis or edema. - Time with Patient Coordination of Care & Counseling Time: Greater than 50% of time spent with patient was for coordination of care (as documented) and [id number] counseling of patient and/or family. [facility] - Medical History Medical History: Medical History (Last Updated 10/25/21 @ 13:38 by Sharath Marques DO) Acquired coagulation factor deficiency Alcoholic cirrhosis Anemia Constipation COPD (chronic obstructive pulmonary disease) Depressive disorder Diabetes mellitus, type 2 Hepatic failure Hypertension Hypokalemia Insomnia Pancytopenia Right heart failure - Surgical History Surgical History: Surgical History (Last Reviewed 12/29/20 @ 11:36 by Niko Lazo MD) History of ankle surgery left History of hysterectomy Hx of exploratory laparotomy - Family History Family History: Family History (Last Reviewed 12/29/20 @ 11:36 by Niko Lazo MD) Brother Diabetes Mother No problems noted. Mother Osteoporosis - Social History Smoking Status: Current every day smoker Tobacco Type: cigarettes Substance Use Type: Alcohol Substance Abuse Comment: unknown Additional Data - Additional Objective Data Height/Weight: Height 5 ft 3.5 in Weight 46.176 kg Vital Signs: 08/08/22 14:35 Temperature 97.8 F Pulse Rate [Left Brachial] 81 Respiratory Rate 20 Blood Pressure [Right Arm] 91/53 L 02 Sat by Pulse Oximetry 98 Oxygen Delivery Method Room Air - Lab Results Diagram of Most Recent CBC and CMP 12/29/20 11:03 - Home Medications and Allergies Allergies/Adverse Reactions: Allergies bupropion Allergy (Verified 06/04/21 10:54) Unknown Reaction Home Medications: Home Medications cholecalciferol (vitamin D3) 25 mcg (1,000 unit) tablet 25 mcg PO DAILY 10/15/20[History Confirmed 08/08/22] melatonin 3 mg capsule 5 mg PO HS 10/15/20 [History Confirmed 08/08/22] metformin 500 mg tablet 500 mg PO DAILY 10/15/20 [History Confirmed 08/08/22] polyethylene glycol 3350 17 gram oral powder packet (Miralax) 17 g PO DAILY 10/15/20 [History Confirmed 08/08/22] potassium chloride 20 mEq tablet,extended release 20 meq PO DAILY 10/15/20 [History Confirmed 08/08/22] spironolactone 25 mg tablet 25 mg PO DAILY 10/15/20 [History Confirmed 08/08/22] dextrose 40 % oral gel (Glucose Gel) 10 g PO Q15M PRN diabetes 12/29/20 [History Confirmed 08/08/22] glucagon HCl 1 mg solution for injection (Glucagon (HCl) Emergency Kit) 1 mg subcut Q20M PRN diabetes 12/29/20 [History Confirmed 08/08/22] albuterol sulfate 90 mcg/actuation aerosol inhaler 2 puff inhalation Q4-6H PRN Shortness Of Breath 06/04/21 [History Confirmed 08/08/22] ipratropium 0.5 mg-albuterol 3 mg (2.5 mg base)/3 mL nebulization soln 3 ml inhalation Q6H PRN Shortness Of Breath 06/04/21 [History Confirmed 08/08/22] lidocaine 4 % topical patch 1 patch topical BID PRN Pain 06/04/21 [History Confirmed 08/08/22] mirtazapine 15 mg tablet (Remeron) 15 mg PO QHS 06/04/21 [History Confirmed 08/08/22] benzonatate 100 mg capsule 100 mg PO TID PRN Cough 06/08/21 [History Confirmed 08/08/22] diclofenac sodium 1 % topical gel 2 g topical QID PRN Pain 06/08/21 [History Confirmed 08/08/22] dulaglutide 4.5 mg/0.5 mL subcutaneous pen injector (Trulicity) 4.5 mg subcut QWEEK 10/25/21 [History Confirmed 08/08/22] lactulose 20 gram/30 mL oral solution 20 g PO DAILY PRN Abdominal Distention 10/25/21 [History Confirmed 08/08/22] lactulose 20 gram/30 mL oral solution 20 g PO TID 10/25/21 [History Confirmed 08/08/22] menthol 4 % topical gel (Biofreeze (menthol)) 1 applic topical TID PRN Pain 10/25/21 [History Confirmed 08/08/22] vitamin B complex 1 cap PO DAILY 10/25/21 [History Confirmed 08/08/22] magnesium oxide 400 mg (241.3 mg magnesium) tablet 400 mg PO QAM #0 tabs 11/01/21 [Rx Confirmed 08/08/22] alendronate 70 mg tablet 70 mg PO QWEEK 01/14/22 [History Confirmed 08/08/22] celecoxib 100 mg capsule (Celebrex) 100 mg PO Q12H PRN Pain 01/14/22 [History Confirmed 08/08/22] empagliflozin 10 mg tablet (Jardiance) 10 mg PO DAILY 01/14/22 [History Confirmed 08/08/22] ondansetron 4 mg disintegrating tablet 4 mg PO Q4H PRN Nausea 01/14/22 [History Confirmed 08/08/22] acetaminophen 325 mg tablet 325 mg PO ONCE PRN Fever 08/08/22 [History Confirmed 08/08/22] calcium carbonate 200 mg calcium (500 mg) chewable tablet (Tums) 200 mg PO QID PRN Heartburn 08/08/22 [History Confirmed 08/08/22] dulaglutide 4.5 mg/0.5 mL subcutaneous pen injector (Trulicity) 4.5 mg subcut QWEEK 08/08/22 [History Confirmed 08/08/22] hydrocodone 5 mg-acetaminophen 325 mg tablet 1 tab PO Q6H PRN Pain 08/08/22 [History Confirmed 08/08/22] insulin glargine 100 unit/mL (3 mL) subcutaneous pen (Lantus Solostar U-100 Insulin) 15 unit subcut BID 08/08/22 [History Confirmed 08/08/22] insulin lispro 100 unit/mL subcutaneous pen (Humalog KwikPen (U-100) Insulin) 1 sliding scale dose subcut USEASDIRECTD 08/08/22 [History Confirmed 08/08/22] loperamide 1 mg/7.5 mL oral liquid (Imodium A-D) 2 mg PO Q2-4H PRN Diarrhea 08/08/22 [History Confirmed 08/08/22] menthol 2.7 mg lozenges (Cough Drops) 5.4 mg mucous membrane Q2-4H PRN Cough 08/08/22 [History Confirmed 08/08/22] rifaximin 550 mg tablet 550 mg PO BID 08/08/22 [History Confirmed 08/08/22] Dictated By: Xander Metcalf II, DO DD/ 1455 Signed By: <Electronically signed by Xander Metcalf II, DO> 08/08/22 1506 [facility] Work Phone: Assessments Diagnosis Pain of right hip joint Contusion of left hand, subsequent encounter Diagnosis Urinary frequency Burning with urination Dysuria Incontinence Unspecified urinary incontinence Recurrent UTI Urinary tract infection, site not specified Diagnosis Urinary frequency- Primary Burning with urination Dysuria Incontinence Unspecified urinary incontinence Recurrent UTI Urinary tract infection, site not specified Diagnosis Injury of right shoulder, initial encounter Diagnosis Other closed displaced fracture of proximal end of right humerus, initial encounter Diagnosis Pain and swelling of right upper extremity Diagnosis Dyspnea, unspecified type Bilateral lower extremity edema Diagnosis Neutropenia, unspecified type (HCC) Thrombocytopenia (HCC) Unspecified thrombocytopenia Dyspnea, unspecified type Hypoxia Hypoxemia Hyperglycemia Other abnormal glucose Abnormal LFTs Pedal edema Edema Other ascites Bilateral pleural effusion Unspecified pleural effusion Diagnosis Decompensated hepatic cirrhosis (HCC) Diagnosis History of recent fall Diagnosis Urinary frequency Diagnosis Acute cystitis without hematuria- Primary Acute cystitis Hepatic encephalopathy (HCC) Hepatic encephalopathy Febrile illness Fever, unspecified Chronic obstructive pulmonary disease (HCC) Chronic airway obstruction, not elsewhere classified Alcoholic cirrhosis of liver with ascites (HCC) Alcoholic cirrhosis of liver Other pancytopenia (HCC) Other pancytopenia Diabetes mellitus (HCC) Type II or unspecified type diabetes mellitus without mention of complication, not stated as uncontrolled Encephalopathy acute Encephalopathy, unspecified Advance Directives No Advanced Directives Records FoundDocuments on File Type Date Recorded Patient Crm Developer Expl anation Advance Directives and Living Will Power of Coding Spec Documents on File Type Date Recorded Patient Crm Developer Expl anation Advance Directives and Living Will Power of Coding Spec Documents on File Type Date Recorded Patient Crm Developer Expl anation Advance Directives and Livin g Will 10/17/2019 3:16 PM Documents on File Type Date Recorded Patient Crm Developer Expl anation Advance Directives and Livin g Will 10/18/2019 12:00 AM Latest Code Status on File Code Status Date Activated Date Inactivated Comments Full Code 10/18/2019 1:32 PM Documents on File Type Date Recorded Patient Crm Developer Expl anation Advance Directives and Livin g Will 10/18/2019 12:00 AM Latest Code Status on File Code Status Date Activated Date Inactivated Comments Full Code 10/18/2019 1:32 PM 10/26/2019 3:12 PM Latest Code Status on File Code Status Date Activated Date Inactivated Comments Full Code 10/18/2019 1:32 PM 10/26/2019 3:12 PM Documents on File Type Date Recorded Patient Crm Developer Expl anation ACP-Advance Directive 05/20/2020 8:45 AM D NR Latest Code Status on File Code Status Date Activated Date Inactivated Comments DNR-CCA 07/04/2020 10:08 PM Latest Code Status on File Code Status Date Activated Date Inactivated Comments DNR-CCA 07/04/2020 10:08 PM 07/07/2020 7:13 PM Advance Directive Response Recorded Date/ Time Advance Directives No August 20 7:37am Latest Code Status on File Code Status Date Activated Date Inactivated Comments Full Code 07/10/2022 6:51 PM Code Status History Code Status Date Activated Date Inactivated Comments DNR-CCA 07/04/2020 10:08 PM 07/07/2020 7:13 PM Healthcare Agents on File Name Relationship Healthcare Agent Relationshi p Communication Fredy Beltran Brother/Sister Primary Decision Maker History of Present Illness * Barbi Whitten, RT - 04/01/2019 11:50 AM EST Pt here for possible uti. Says she has had recurrent uti's or feels like maybe it just hasn't gone away. Was here a couple months ago with the same complaints. Urinary urgency and says she can't holdit in. Note that she says some antibiotics have not worked for her but she can't remember which ones. POC rack urine completed and specimen sent to lab for culture. documented in this encounter* Ashia Aguirre CNP - 10/17/2019 1:57 PM EDT [facility] Urgent Care Brief Evaluation Form Patient Name: [facility]gent Care Location: Hetal Jasso [address] [address] Date Of : Date Of Visit: 1955 10/17/2019 MRN# Provider: [id number] Ashia Aguirre CNP SUBJECTIVE Hetal Jasso presented [facility] with Leg Swelling (bilat leg swelling for about atweek, has been elevating her legs at night, relates gaining about 10 pounds) HPI: Patient presents here today with a one week worsening history of bilateral lower extremity edema that has been associated with a chest heaviness, fatigue, and increased SOB. She denies any PMHx of cardiac problems, but she does have a history of COPD. Denies any headache, chest pain, neck pain, wheezing, abdominal pain, n/v/d, or rash. No modifying factors. Allergies: no known allergies. OBJECTIVE BP 118/74 Pulse (!) 100 Temp 97.8 F (36.6 C) Resp 18 Ht 5' 5 Wt 58.1 kg (128 lb) SpO2 93% BMI 21.30 kg/m Pertinent PE Findings: Severe pitting edema to BLE, patient is notably SOB when trying to have discussion and appears if she feels unwell. She is A+Ox4 and is aware of current situation. ASSESSMENT 1. Dyspnea, unspecified type Ambulatory referral to Emergency Medicine 2. Bilateral lower extremity edema Ambulatory referral to Emergency Medicine Medical Decision Making: Discussed with patient that there is obvious concern for heart failure given her presentation and that she requires evaluation at an ED. She refuses to go by EMS. She is aware of the consequences of delayed evaluation and treatment up to and including . Will report to [facility] ED DIANA. [facility] COVID-19 suspected symptoms and mask status: Does the patient have suspected COVID-19 symptoms? No, the patient does not have COVID-19 symptoms and I (the provider) WAS wearing a mask during the visit. PLAN Patient is being recommended to go to [facility] for further evaluation and treatment. Patient will transport via Private Auto (Self). Orders Placed This Visit Orders Placed This Encounter Procedures Ambulatory referral to Emergency Medicine Medication List At End Of Visit No current outpatient medications on file. No current facility-administered medications for this visit. *Transfer location subject to change based on patient condition during transport at EMS discretion. documented in this encounter* Marga Ruiz LSW - 10/26/2019 10:08 AM EDT COMPLEX DISCHARGE Date: 10/26/2019 Time: 10:08 AM Patient Name: Hetal Jasso Date of : 1955 Sex: Female Discharge Planning Living Arrangements: Friends Support Systems: Friends/neighbors Assistance Needed: possible Type of Residence: Private residence Prior to Admission Home Care Services: No Current Home Equipment: None Anticipated HME: None Anticipated Home Care Needs: Undetermined Anticipated Discharge Plan Anticipated HME: None Anticipated Home Care Needs: Undetermined Potential for Readmission Potential for Readmission: No Discharge Readiness Expected Discharge Date: 10/26/19 [facility] Disposition D/C Disposition: Alf Facility Agency/Destination: Other([facility]) Home Care Needs : None HME: None Same As Recommended : yes PAS/RR: DAQUAN(Complete) Transportation Type: Ambulance Transportation Company/Agency Name: Other (Comment)([facility]) Options Reviewed: List provided, Explained services/benefits, Possible expense Reason for Choice: Patient/Family preference Negative COVID test result and DOD bundle faxed to [facility]. AVS updated. Transport packetin pt file. No other needs. [employer] [employer] signing off. * Rivas Monsalve DO - 10/25/2019 5:26 PM EDT [facility] Inpatient Progress Note 10/25/2019 Hetal Jasso 1955 [id number] Assessment/Plan: Hetal Jasso is a 64yo M with a history of alcoholic cirrhosis diagnosed in 2009, alcohol abuse inremission, COPD, and arthritis. Presented to [facility] on 10/17/19 with 7 days of peripheral swelling and dyspnea. CT PA found no PE but noted mod-large left and small-mod right pleural effusions, pulmonary HTN, cirrhotic changes, and moderate ascites. Na 134, K 3.1, BG 452, Dbili 2.7, Tbili 5.6, Alk Phos 241, WBC 1.97, Plt 30, INR 1.8, A1c 9.6. T/f to [facility] 10/18/2019 for GI consult and further care. S/p paracentesis with 350cc out and fluid analysis consistent with portal-HTN. 1. Decompensated alcoholic cirrhosis: diagnosed with cirrhosis in 2009, stopped drinking alcohol [id number]. Chronic leukopenia and thrombocytopenia. No prior screening EGD or evaluation by GI per pt. [facility] Dbili 2.7, Tbili 5.6, Alk Phos 241, WBC 1.97, Plt 30, INR 1.8. OL CT PA noted moderate ascites. Paracentesis 10/18/19 with 350ml out. High SAAG, low protein consistent with portal-HTN. Unable to rule out SBP, continue Rocephin. EGD 10/23/19 with EV noted but no banding due to elevated INR. Continue Lasix and Aldactone. GI signed off and pt will need to follow with GI outpatient and repeat EGD in1 year. 2. Bilateral pleural effusions: [facility] CT PA found mod-large left and small-mod right pleural effusions, BNP 204. Likely 2/2 above but possible cardiac component. TTE 10/18/19 found EF 60%, mild diastolic dysfunction. Continue Lasix. 3. Acute hypoxic respiratory failure: 2/2 pleural effusions, volume overload. Requiring 2L oxygen. IV diuresis as above. Encouraged IS use, wean oxygen as able for goal sat >88%. Has been comfortable on room air. 4. Peripheral edema: L>R, developed 1-2 weeks before admit. Likely due to decompensated cirrhosis but given unequal swelling. BLEVD on 10/18/19 with no evidence of DVT. [facility] CT PA negative for PE. 5. Chronic thrombocytopenia: and leukopenia since 2008. Secondary to alcoholic cirrhosis. Baseline WBC 2.5, Plt 45-60, Hgb ~14 per lab review. [facility] Plt 30, WBC 1.97, Hgb 13.1. Monitor counts, transfuse Plts if <20. Stable. No signs of active bleeding. 6. Coagulopathy: secondary to cirrhosis. INR 1.8 at [facility]. No signs of bleeding. Monitor labs daily. INR 1.6 (10/25/19). 7. New onset diabetes mellitus: pt denies prior diagnosis. BG 452 at [facility], A1c 9.6. Reviewed labs and noted BG 200s since 2008. Started low dose basal, SSI. Titrate prn. Consulted Province Archivist. Cognitive Eval by HEAD OF STRATEGY with recommendations that patient would benefit greatly with assistance of daily insulin management. Plans to d/c to SNF. 8. Right ventricular systolic dysfunction: TTE 10/18/19 noted moderate RV dilation, mild reduction in systolic function. CT PA at [facility] negative for PE. Follow up outpatient with Cardio for repeat TTE in 3-6 months. 9. COPD: per history. No home oxygen. No acute exacerbation. No home inhalers. Ordered PRN albuterol nebs. 10. Alcoholism in remission: longstanding alcohol abuse, stopped drinking 4 years prior per pt. Encouraged continued sobriety. 11. Insomnia: recent complaint. Started Melatonin nightly on admit. 12. Constipation: takes stool softner at home, continued. 13. DVT prophylaxis: SCDs. Current living situation: home Expected Disposition: SNF Estimated discharge date: once transportation established, and COVID checked (per SNF requirement) Subjective: S/E at bedside today. Pt seated upright in bedside chair, awake and alert, NAD. No overnight eventsor acute concerns. Denies F/C/S, N/V, chest pain, and SOB. Overall unchanged from previous. Physical Exam: BP 100/64 (BP Location: Right arm, Patient Position: Lying) Pulse 83 Temp 98.2 F (36.8 C) (Oral) Resp 14 Ht 5' 5 Wt 61 kg (134 lb 7.7 oz) SpO2 93% BMI 22.38 kg/m General: NAD, mild jaundice Eyes: EOMI ENT: neck supple Cardiovascular: Regular rate. Respiratory: Clear to auscultation Gastrointestinal: Soft, non tender Genitourinary: no suprapubic tenderness Musculoskeletal: +2 pitting edema to midthigh. Skin: warm, dry Neuro: Alert. Psych: Mood appropriate. Current Medications: furosemide 40 mg Intravenous Daily insulin glargine 23 Units Subcutaneous Nightly lispro insulin 0-15 Units Subcutaneous at bedtime insulin lispro 0-30 Units Subcutaneous TID AC melatonin 3 mg Oral Nightly senna-docusate 1 tablet Oral BID spironolactone 100 mg Oral Daily Labs, Imaging and Studies reviewed: Results from last 7 days Lab Units 10/25/19 0546 10/24/1945010/23/19717 WBC K/mcL 1.60* 2.02* 1.70* HGB g/dL 11.1* 10.8* 11.4* HCT % 32.5* 31.7* 33.1* PLT K/mcL 30* 33* 32* Results from last 7 days Lab Units 10/25/19 0546 10/24/1945010/23/19717 SODIUM mmol/L 133* 134* 134* POTASSIUM mmol/L 3.9 3.8 3.6 CHLORIDE mmol/L 94* 97* 95* BICARB mmol/L 31 30 31 BUN mg/dL 15 15 13 CREATININE mg/dL 0.29* 0.25* 0.21* EGFR mL/min/1.73 m2 121 127 135 GLUCOSE mg/dL 286* 125* 168* CALCIUM mg/dL 8.4 8.7 8.7 Results from last 7 days Lab Units 10/25/19 0546 10/23/1971710/22/19 0437 ALT U/L 21 21 21 AST U/L 36 40 39 ALK PHOS U/L 149 151* 153* BILIRUBIN TOTAL mg/dL 3.0* 3.3* 3.7* Results from last 7 days Lab Units 10/25/19 0546 10/24/1945010/23/1918 INR 1.6* 1.7* 1.7* * Terra Merrill, RD - 10/25/2019 1:36 PM EDT Nutrition Care Follow Up Monitoring and Evaluation: PO intake was 75% or greater at most meals Nutrition Diagnosis: Hyperglycemia related to new onset diabetes as evidenced by hemoglobin A1c>6% (ongoing) Nutrition Intervention/Prescription: Continue curent diet as ordered; continue ONS q dinner Nutrition Goals: PO intake > 75% most meals Start Date:10/25/2019 Expected End Date:10/31/2019 Nutrition Education: No needs at this time; ECF at ca. Seen by DM edu Subjective: Pt feels that appetite is improving, eating much better at meals. Is tolerating the mighty shake well. Pt more alert than on previous visit Objective: Pertinent clinical issues: s/p EGD 10/22, grade 1 EV. Dispo planning to ECF Oral nutrition supplements Mighty Shakes No Sugar Added; Mighty Shakes No Sugar Added Chocolate At dinner Diet Special; Diabetic, Cardiac; Carbohydrate Consistent 75g/meal (>2000 kCal equivalent) Recent intake: 75-100%; Current intake meets estimated needs. Difficulty Chewing/Swallowing: No Current wt: 61 kg (134 lb 7.7 oz) Admit wt: 58 kg Meds: lasix, lantus, SSI-N, senna, aldactone Labs: Na 133, Cl 94, Cr 0.2 BG range: 95-279 x24hrs Skin Integrity: nursing flowsheets reviewed; +2 edema GI fxn: +BM Estimated Energy Needs Total Energy Estimated Needs: [id number] Method for Estimating Needs: 25-30 kcals/kg(admit wt: 58kg) Total Protein Estimated Needs: 57-74g Method for Estimating Needs: 1-1.3g/kg IBW Terra Merrill RD, LD, [facility] Vocera: [phone] * Laurel Fischer MSW LSW - 10/25/2019 9:51 AM EDT DISCHARGE PLAN PROGRESS NOTE Date: 10/25/2019 Time: 9:51 AM Patient Name: Hetal Jasso Date of : 1955 Sex: Female Discharge Readiness Expected Discharge Date: 10/25/19 [facility] Disposition D/C Disposition: Alf Facility Agency/Destination: Other([facility]) Home Care Needs : None HME: None Same As Recommended : yes Transportation Type: Auto Options Reviewed: List provided, Possible expense, Explained services/benefits Reason for Choice: Patient/Family preference Anticipated Discharge Plan Anticipated HME: None Anticipated Home Care Needs: Undetermined [facility] [employer] called [facility] to F/U on referral. Facility able to accept patient SNF with plans to transition to LTC. Patient's pre-cert started by facility. Will need HENS completed. [facility] will continue to follow. ADDENDUM (12:42 PM) - [facility] [employer] spoke with admissions at [facility], pre-cert back. Patient will need COVID test prior to admit. [facility] [employer] notified RN. HENS needed. [facility] messaged [facility] requesting HENs be completed. [facility] [employer] will continue to follow. ADDENDUM (1:50 PM) - Per [facility], HENs completed. ADDENDUM (3:21 PM) - Transport scheduled with [facility] for 10/25 at 11:30 AM. Facility, patient's daughter, and RN notified. DOD bundle and COVID result will need sent to facility once available. * Sumit Escamilla, JUAN - 10/24/2019 12:25 PM EDT GASTROENTEROLOGY DAILY PROGRESS NOTE 1 Patient Name: Hetal Jasso MR #: [id number] Assessment/Plan: Decompensated hepatic cirrhosis (HCC) Assessment & Plan 64 year old female PMHx alcohol abuse, cirrhosis (diagnosed 10yrs ago), COPD who presented to [facility] with LE swelling and SOB. Found to have cirrhosis with ascites, b/l pleural effusions, and multiple lab abnormalities. Transferred to [facility] and GI consulted for further evaluation of decompensated cirrhosis. Reports sobriety x 4 years. -decompensated ETOH cirrhosis w/ thrombocytopenia and ascites -MELD-NA: 22 -Viral / AIH negative. No e/o iron / copper overload. -s/p paracentesis (10/17): 350 ml removed, no SBP. High SAAG, low protein c/w pHTN. On aldactone 100mg daily and lasix 40mg IV daily -MRI/MRCP (10/19): multiple communicating intra- and intrahepatic ductal cysts to include the suspicious lesion in the left hepatic lobe; type 4 biliary cyst; cirrhosis w/o arterially enhancing lesion; small ascites; moderate left and R pleural effusion -AFP: normal -CTPA ([facility]): neg PE; moderate b/l pleural effusions L>R, e/o pulmonary HTN, cirrhosis w splenomegaly, moderate ascites, and hepatic cysts -RUQ U/S with 1 cm hypoechoic lesion and PV thrombus -S/p EGD 10/22 showed Grade 1 and small EV, pHTN gastropathy Imp/Plans: -EtOH cirrhosis. -On Diuretics; would continue as ordered. No SBP in setting of bloody tap, can complete entire course of antibiotics. Low Na diet. Repeat EGD in 1 year to reassess EV, no plan for NSBB. No HE noted. Will arrange OP follow up for liver cirrhosis management. No further inpatient recommendations at this time, we are available as needed. Chief Complaint: Cirrhosis Subjective: Perpetual Assessment: Hetal Jasso is a 64 y.o. y/o female with no bleeding, HE. Denies abdominal pain and tolerating diet. Urinating well. Labs: Results from last 7 days Lab Units 10/24/19 04510/23/19 0710/22/19 0437 WBC K/mcL 2.02* 1.70* 1.61* HGB g/dL 10.8* 11.4* 11.5* HCT % 31.7* 33.1* 35.1* PLT K/mcL 33* 32* 31* Results from last 7 days Lab Units 10/24/19 04510/23/19 0710/22/19 0437 10/21/19 0602 SODIUM mmol/L 134* 134* 136 135 POTASSIUM mmol/L 3.8 3.6 3.6 3.6 CHLORIDE mmol/L 97* 95* 96* 97* BUN mg/dL 15 13 10 10 CREATININE mg/dL 0.25* 0.21* 0.31* <0.20* CALCIUM mg/dL 8.7 8.7 8.5 8.3* TOTAL PROTEIN g/dL -- 4.2* 4.2* 4.0* BILIRUBIN TOTAL mg/dL -- 3.3* 3.7* 3.8* ALK PHOS U/L -- 151* 153* 150 ALT U/L -- 21 21 19 AST U/L -- 40 39 37 GLUCOSE mg/dL 125* 168* 171* 243* Physical Examination: Temp: [97.8 F (36.6 C)-98.5 F (36.9 C)] 97.8 F (36.6 C) Heart Rate: [84-96] 91 Resp: [12-18] 12 BP: (88-98)/(51-61) 98/61 CONSTITUTIONAL: Awake, ill appearing, NAD ABDOMEN: Round, fluid wave, non-tender. SKIN: No jaundice Results/Medications Reviewed 10/24/19 12:25 PM: Laboratory, Medications and Transcriptions Sumit Escamilla, VIET-C [facility] [phone] (for staff use only) * Rivas Monsalve, DO - 10/24/2019 12:05 PM EDT [facility] Inpatient Progress Note 10/24/2019 Hetal Jasso 1955 [id number] Assessment/Plan: Hetal Jasso is a 64yo M with a history of alcoholic cirrhosis diagnosed in 2009, alcohol abuse inremission, COPD, and arthritis. Presented to [facility] on 10/17/19 with 7 days of peripheral swelling and dyspnea. CT PA found no PE but noted mod-large left and small-mod right pleural effusions, pulmonary HTN, cirrhotic changes, and moderate ascites. Na 134, K 3.1, BG 452, Dbili 2.7, Tbili 5.6, Alk Phos 241, WBC 1.97, Plt 30, INR 1.8, A1c 9.6. T/f to [facility] 10/18/2019 for GI consult and further care. S/p paracentesis with 350cc out and fluid analysis consistent with portal-HTN. 1. Decompensated alcoholic cirrhosis: diagnosed with cirrhosis in 2009, stopped drinking alcohol [id number]. Chronic leukopenia and thrombocytopenia. No prior screening EGD or evaluation by GI per pt. [facility] Dbili 2.7, Tbili 5.6, Alk Phos 241, WBC 1.97, Plt 30, INR 1.8. [facility] CT PA noted moderate ascites. Paracentesis 10/18/19 with 350ml out. High SAAG, low protein consistent with portal-HTN. Unable to rule out SBP, continue Rocephin. EGD 10/23/19 with EV noted but no banding due to elevated INR. Continue Lasix and Aldactone. GI following. 2. Bilateral pleural effusions: [facility] CT PA found mod-large left and small-mod right pleural effusions, BNP 204. Likely 2/2 above but possible cardiac component. TTE 10/18/19 found EF 60%, mild diastolic dysfunction. Continue Lasix. 3. Acute hypoxic respiratory failure: 2/2 pleural effusions, volume overload. Requiring 2L oxygen. IV diuresis as above. Encouraged IS use, wean oxygen as able for goal sat >88%. Currently on roomair. 4. Peripheral edema: L>R, developed 1-2 weeks before admit. Likely due to decompensated cirrhosis but given unequal swelling. BLEVD on 10/18/19 with no evidence of DVT. [facility] CT PA negative for PE. 5. Chronic thrombocytopenia: and leukopenia since 2008. Secondary to alcoholic cirrhosis. Baseline WBC 2.5, Plt 45-60, Hgb ~14 per lab review. [facility] Plt 30, WBC 1.97, Hgb 13.1. No signs of bleeding currently. Further GI workup as above. Monitor counts, transfuse Plts if <20. Stable. No signs of active bleeding. 6. Coagulopathy: secondary to cirrhosis. INR 1.8 at [facility]. No signs of bleeding. Monitor labs daily. INR 1.7 (10/24/19). 7. New onset diabetes mellitus: pt denies prior diagnosis. BG 452 at [facility], A1c 9.6. Reviewed labs and noted BG 200s since 2008. Started low dose basal, SSI. Titrate prn. Consulted Province Archivist. Unclear how well pt will be able to manage home insulin? Reaching out to family to see if they will be able to help. 8. Right ventricular systolic dysfunction: TTE 10/18/19 noted moderate RV dilation, mild reduction in systolic function. CT PA at [facility] negative for PE. Follow up outpatient with Cardio for repeat TTE in 3-6 months. 9. COPD: per history. No home oxygen. No acute exacerbation. No home inhalers. Ordered PRN albuterol nebs. 10. Alcoholism in remission: longstanding alcohol abuse, stopped drinking 4 years prior per pt. Encouraged continued sobriety. 11. Insomnia: recent complaint. Started Melatonin nightly on admit. 12. Constipation: takes stool softner at home, continued. 13. DVT prophylaxis: SCDs. Current living situation: home Expected Disposition: home?, family expressed concern pt can not adequately care for herself at home, may need placement, SW following, will have PT/OT eval and HEAD OF STRATEGY evaluate for cognitive assessment Estimated discharge date: TBD Subjective: S/E at bedside today. Pt seated upright in bedside chair, awake and alert, NAD. No overnight eventsor acute concerns. Denies F/C/S, N/V, chest pain, and SOB. Physical Exam: BP 98/61 (BP Location: Left arm, Patient Position: Lying) Pulse 91 Temp 97.8 F (36.6 C) (Oral) Resp 12 Ht 5' 5 Wt 61 kg (134 lb 7.7 oz) SpO2 (!) 89% BMI 22.38 kg/m General: NAD, mild jaundice Eyes: EOMI ENT: neck supple Cardiovascular: Regular rate. Respiratory: Clear to auscultation Gastrointestinal: Soft, non tender Genitourinary: no suprapubic tenderness Musculoskeletal: +2 pitting edema to midthigh. Skin: warm, dry Neuro: Alert. Psych: Mood appropriate. Current Medications: cefTRIAXone (ROCEPHIN) IVPB 2,000 mg Intravenous Q24H furosemide 40 mg Intravenous Daily insulin glargine 23 Units Subcutaneous Nightly lispro insulin 0-15 Units Subcutaneous at bedtime insulin lispro 0-30 Units Subcutaneous TID AC melatonin 3 mg Oral Nightly senna-docusate 1 tablet Oral BID spironolactone 100 mg Oral Daily Labs, Imaging and Studies reviewed: Results from last 7 days Lab Units 10/24/19 04510/23/1971710/22/19 0437 WBC K/mcL 2.02* 1.70* 1.61* HGB g/dL 10.8* 11.4* 11.5* HCT % 31.7* 33.1* 35.1* PLT K/mcL 33* 32* 31* Results from last 7 days Lab Units 10/24/19 04510/23/19 0710/22/19 0437 SODIUM mmol/L 134* 134* 136 POTASSIUM mmol/L 3.8 3.6 3.6 CHLORIDE mmol/L 97* 95* 96* BICARB mmol/L 30 31 33* BUN mg/dL 15 13 10 CREATININE mg/dL 0.25* 0.21* 0.31* EGFR mL/min/1.73 m2 127 135 118 GLUCOSE mg/dL 125* 168* 171* CALCIUM mg/dL 8.7 8.7 8.5 Results from last 7 days Lab Units 10/23/19 0718 10/22/19 0437 10/21/19 0602 ALT U/L 21 21 19 AST U/L 40 39 37 ALK PHOS U/L 151* 153* 150 BILIRUBIN TOTAL mg/dL 3.3* 3.7* 3.8* Results from last 7 days Lab Units 10/24/19 0451 10/23/19 0718 10/22/19 0437 INR 1.7* 1.7* 1.9* * Rivas Monsalve DO - 10/23/2019 6:41 PM EDT [facility] Inpatient Progress Note 10/23/2019 Hetal Jasso 1955 [id number] Assessment/Plan: Hetal Jasso is a 64yo M with a history of alcoholic cirrhosis diagnosed in 2009, alcohol abuse inremission, COPD, arthritis who presented to [facility] on 10/17/19 with 7 days of peripheral swellingand dyspnea. CT PA found no PE but noted mod-large left and small-mod right pleural effusions, pulmonary HTN, cirrhotic changes and moderate ascites. Na 134, K 3.1, BG 452, Dbili 2.7, Tbili 5.6, Alk Phos 241, WBC 1.97, Plt 30, INR 1.8, A1c 9.6. T/f to [facility] 10/18/2019 for GI consult and further care. 1. Decompensated alcoholic cirrhosis: diagnosed with cirrhosis in 2009, stopped drinking alcohol [id number]. Chronic leukopenia and thrombocytopenia. No prior screening EGD or evaluation by GI per pt. [facility] Dbili 2.7, Tbili 5.6, Alk Phos 241, WBC 1.97, Plt 30, INR 1.8. [facility] CT PA noted moderate ascites but exam reveals minimal abdominal distension. . Paracentesis 10/18/19 with 350ml out. High SAAG, low protein consistent with portal-HTN. Started Rocephin for SBP proph. EGD 10/23/19 with EV noted. Continue Lasix and Aldactone. GI following. 2. Bilateral pleural effusions: OL CT PA found mod-large left and small-mod right pleural effusions, BNP 204. Likely 2/2 above but possible cardiac component. TTE 10/18/19 found EF 60%, mild diastolic dysfunction. Continue Lasix. 3. Acute hypoxic respiratory failure: 2/2 pleural effusions, volume overload. Requiring 2L oxygen. IV diuresis as above. Encouraged IS use, wean oxygen as able for goal sat >88%. 4. Peripheral edema: L>R, developed 1-2 weeks before admit. Likely due to decompensated cirrhosis but given unequal swelling. BLEVD on 10/18/19 with no evidence of DVT. [facility] CT PA negative for PE. 5. Chronic thrombocytopenia: and leukopenia since 2008. Secondary to alcoholic cirrhosis. Baseline WBC 2.5, Plt 45-60, Hgb ~14 per lab review. [facility] Plt 30, WBC 1.97, Hgb 13.1. No signs of bleeding currently. Further GI workup as above. Monitor counts, transfuse Plts if <20. 6. Coagulopathy: secondary to cirrhosis. INR 1.8 at [facility]. No signs of bleeding. Monitor labs daily. INR 1.7 (10/23/19). 7. New onset diabetes mellitus: pt denies prior diagnosis. BG 452 at [facility], A1c 9.6. Reviewed labs and noted BG 200s since 2008. Started low dose basal, SSI. Titrate prn. Consulted Province Archivist. Unclear how well pt will be able to manage home insulin? Reaching out to family to see if they will be able to help. 8. Right ventricular systolic dysfunction: TTE 10/18/19 noted moderate RV dilation, mild reduction in systolic function. CT PA at [facility] negative for PE. Follow up outpatient with Cardio for repeat TTE in 3-6 months. 9. COPD: per history. No home oxygen. No acute exacerbation. No home inhalers. Ordered PRN albuterol nebs. 10. Alcoholism in remission: longstanding alcohol abuse, stopped drinking 4 years prior per pt. Encouraged continued sobriety. 11. Insomnia: recent complaint. Started Melatonin nightly on admit. 12. Constipation: takes stool softner at home, continued. 13. DVT prophylaxis: SCDs. Current living situation: home Expected Disposition: home?, family expressed concern pt can not adequately care for herself at home, may need placement Estimated discharge date: TBD Subjective: S/E at bedside today. Pt seated upright in bedside chair, awake and alert, NAD. No overnight eventsor acute concerns. Denies F/C/S, N/V, chest pain and SOB. Physical Exam: BP (!) 90/51 (BP Location: Left arm, Patient Position: Lying) Pulse 84 Temp 98 F (36.7 C) (Oral) Resp 18 Ht 5' 5 Wt 61 kg (134 lb 7.7 oz) SpO2 96% BMI 22.38 kg/m General: NAD, mild jaundice Eyes: EOMI ENT: neck supple Cardiovascular: Regular rate. Respiratory: Clear to auscultation Gastrointestinal: Soft, non tender Genitourinary: no suprapubic tenderness Musculoskeletal: +2 pitting edema to midthigh. Skin: warm, dry Neuro: Alert. Psych: Mood appropriate. Current Medications: cefTRIAXone (ROCEPHIN) IVPB 2,000 mg Intravenous Q24H furosemide 40 mg Intravenous Daily [START ON 10/24/2019] insulin glargine 23 Units Subcutaneous Nightly lispro insulin 0-15 Units Subcutaneous at bedtime insulin lispro 0-30 Units Subcutaneous TID AC melatonin 3 mg Oral Nightly senna-docusate 1 tablet Oral BID spironolactone 100 mg Oral Daily Labs, Imaging and Studies reviewed: Results from last 7 days Lab Units 10/23/1971710/22/1943610/21/19 06 WBC K/mcL 1.70* 1.61* 1.46* HGB g/dL 11.4* 11.5* 11.2* HCT % 33.1* 35.1* 32.8* PLT K/mcL 32* 31* 29* Results from last 7 days Lab Units 10/23/19 0710/22/19 0437 10/21/19 0602 10/17/19 1520 SODIUM mmol/L 134* 136 135 < > 134* POTASSIUM mmol/L 3.6 3.6 3.6 < > 3.1* CHLORIDE mmol/L 95* 96* 97* < > 97* BICARB mmol/L 31 33* 29 < > 25 BUN mg/dL 13 10 10 < > 5* CREATININE mg/dL 0.21* 0.31* <0.20* < > 0.53* EGFR mL/min/1.73 m2 135 118 -- -- 99 GLUCOSE mg/dL 168* 171* 243* < > 452* CALCIUM mg/dL 8.7 8.5 8.3* < > 8.3* < > = values in this interval not displayed. Results from last 7 days Lab Units 10/23/19 0718 10/22/19 0437 10/21/19 0602 ALT U/L AST U/L 40 39 37 ALK PHOS U/L 151* 153* 150 BILIRUBIN TOTAL mg/dL 3.3* 3.7* 3.8* Results from last 7 days Lab Units 10/23/19 0718 10/22/19 0437 10/21/19 0602 INR 1.7* 1.9* 2.0* * Rivas Monsalve DO - 10/22/2019 4:31 PM EDT [facility] Inpatient Progress Note 10/22/2019 Hetal Jasso 1955 [id number] Assessment/Plan: Hetal Jasso is a 64yo M with a history of alcoholic cirrhosis diagnosed in 2009, alcohol abuse inremission, COPD, arthritis who presented to [facility] on 10/17/19 with 7 days of peripheral swellingand dyspnea. CT PA found no PE but noted mod-large left and small-mod right pleural effusions, pulmonary HTN, cirrhotic changes and moderate ascites. Na 134, K 3.1, BG 452, Dbili 2.7, Tbili 5.6, Alk Phos 241, WBC 1.97, Plt 30, INR 1.8, A1c 9.6. T/f to [facility] 10/18/2019 for GI consult and further care. 1. Decompensated alcoholic cirrhosis: diagnosed with cirrhosis in 2009, stopped drinking alcohol [id number]. Has chronic leukopenia and thrombocytopenia. No prior screening EGD or evaluation by GI per pt. [facility] Dbili 2.7, Tbili 5.6, Alk Phos 241, WBC 1.97, Plt 30, INR 1.8. [facility] CT PA noted moderate ascites but exam reveals minimal abdominal distension. No signs of peritonitis. Started IV Lasix daily, PO Aldactone, consulted GI and IR for diagnostic paracentesis. Paracentesis 10/18/19 with 350ml out. High SAAG, low protein consistent with portal-HTN. Started Rocephin for SBP proph. Plans for EGD 10/23/19 to evaluate of EV. GI following. 2. Bilateral pleural effusions: [facility] CT PA found mod-large left and small-mod right pleural effusions, BNP 204. Likely 2/2 above but possible cardiac component. TTE 10/18/19 found EF 60%, mild diastolic dysfunction. Started IV Lasix as above. 3. Acute hypoxic respiratory failure: 2/2 pleural effusions, volume overload. Requiring 2L oxygen. IV diuresis as above. Encouraged IS use, wean oxygen as able for goal sat >88%. 4. Peripheral edema: L>R, developed 1-2 weeks before admit. Likely due to decompensated cirrhosis but given unequal swelling. BLEVD on 10/18/19 with no evidence of DVT. [facility] CT PA negative for PE. IV diuresis as above. 5. Chronic thrombocytopenia: and leukopenia since 2008. Secondary to alcoholic cirrhosis. Baseline WBC 2.5, Plt 45-60, Hgb ~14 per lab review. [facility] Plt 30, WBC 1.97, Hgb 13.1. No signs of bleeding currently. Further GI workup as above. Monitor counts, transfuse Plts if <20. 6. Coagulopathy: secondary to cirrhosis. INR 1.8 at [facility]. No signs of bleeding. Monitor labs daily. FFP if needed. 7. New onset diabetes mellitus: pt denies prior diagnosis. BG 452 at [facility], A1c 9.6. Reviewed labs and noted BG 200s since 2008. Started low dose basal, SSI. Titrate prn. Consulted Province Archivist. 8. Right ventricular systolic dysfunction: TTE 10/18/19 noted moderate RV dilation, mild reduction in systolic function. CT PA at [facility] negative for PE. Follow up outpatient with Cardio for repeat TTE in 3-6 months. 9. COPD: per history. No home oxygen. No acute exacerbation. No home inhalers. Ordered PRN albuterol nebs. 10. Alcoholism in remission: longstanding alcohol abuse, stopped drinking 4 years prior per pt. Encouraged continued sobriety. 11. Insomnia: recent complaint. Started Melatonin nightly on admit. 12. Constipation: takes stool softner at home, continued. 13. DVT prophylaxis: SCDs. Current living situation: home Expected Disposition: home? Estimated discharge date: TBD Subjective: Pt new to examiner: recent labs, vitals, pulse ox, and imaging as well as any specialist notes reviewed with this information incorporated into the above assessment and plan of care. S/E at bedside today. Pt seated upright in bedside chair, awake and alert, NAD ordering food. No overnight events oracute concerns. Physical Exam: BP (!) 91/51 (BP Location: Left arm, Patient Position: Lying) Comment: rn notified Pulse 83 Temp 97.4 F (36.3 C) (Oral) Resp 16 Ht 5' 5 Wt 61 kg (134 lb 7.7 oz) SpO2 96% BMI 22.38 kg/m General: NAD, mild jaundice Eyes: EOMI ENT: neck supple Cardiovascular: Regular rate. Respiratory: Clear to auscultation Gastrointestinal: Soft, non tender Genitourinary: no suprapubic tenderness Musculoskeletal: +2 pitting edema to midthigh. Skin: warm, dry Neuro: Alert. Psych: Mood appropriate. Current Medications: cefTRIAXone (ROCEPHIN) IVPB 2,000 mg Intravenous Q24H furosemide 40 mg Intravenous Daily insulin glargine 20 Units Subcutaneous Nightly lispro insulin 0-15 Units Subcutaneous at bedtime insulin lispro 0-30 Units Subcutaneous TID AC melatonin 3 mg Oral Nightly senna-docusate 1 tablet Oral BID spironolactone 100 mg Oral Daily Labs, Imaging and Studies reviewed: Results from last 7 days Lab Units 10/22/19 0437 10/21/19 0610/19/19 0406 WBC K/mcL 1.61* 1.46* 1.83* HGB g/dL 11.5* 11.2* 11.0* HCT % 35.1* 32.8* 33.3* PLT K/mcL 31* 29* 29* Results from last 7 days Lab Units 10/22/19 0437 10/21/19 0602 10/19/19 0406 10/17/19 1520 SODIUM mmol/L 136 135 136 < > 134* POTASSIUM mmol/L 3.6 3.6 3.7 < > 3.1* CHLORIDE mmol/L 96* 97* 99 < > 97* BICARB mmol/L 33* 29 29 < > 25 BUN mg/dL 10 10 9 < > 5* CREATININE mg/dL 0.31* <0.20* <0.20* < > 0.53* EGFR mL/min/1.73 m2 118 -- -- -- 99 GLUCOSE mg/dL 171* 243* 348* < > 452* CALCIUM mg/dL 8.5 8.3* 8.3* < > 8.3* < > = values in this interval not displayed. Results from last 7 days Lab Units 10/22/19 0437 10/21/19 0602 10/19/19 0406 ALT U/L AST U/L 39 37 33 ALK PHOS U/L 153* 150 161* BILIRUBIN TOTAL mg/dL 3.7* 3.8* 5.5* Results from last 7 days Lab Units 10/22/19 0437 10/21/19 0602 10/20/19 0514 INR 1.9* 2.0* 2.1* * Sumit Escamilla, JUAN - 10/22/2019 12:51 PM EDT GASTROENTEROLOGY DAILY PROGRESS NOTE 2 Patient Name: Hetal Jasso MR #: [id number] Assessment/Plan: Decompensated hepatic cirrhosis (HCC) Assessment & Plan 64 year old female PMHx alcohol abuse, cirrhosis (diagnosed 10yrs ago), COPD who presented to [facility] with LE swelling and SOB. Found to have cirrhosis with ascites, b/l pleural effusions, and multiple lab abnormalities. Transferred to [facility] and GI consulted for further evaluation of decompensated cirrhosis. Reports sobriety x 4 years. -decompensated ETOH cirrhosis w/ thrombocytopenia and ascites -MELD-NA: 22 -Viral / AIH negative. No e/o iron / copper overload. -s/p paracentesis (10/17): 350 ml removed, no SBP. High SAAG, low protein c/w pHTN -MRI/MRCP (10/19): multiple communicating intra- and intrahepatic ductal cysts to include the suspicious lesion in the left hepatic lobe; type 4 biliary cyst; cirrhosis w/o arterially enhancing lesion; small ascites; moderate left and R pleural effusion -AFP: normal -INR 1.9 -on Aldactone 100 mg daily and Lasix 40mg IV daily -electrolytes and renal function stable -CTPA ([facility]): neg PE; moderate b/l pleural effusions L>R, e/o pulmonary HTN, cirrhosis w splenomegaly, moderate ascites, and hepatic cysts -RUQ U/S with 1 cm hypoechoic lesion and PV thrombus Plans: -Continue diuretics at current dose. CMP daily, 2 gram NA diet. No SBP, can complete 5 day course and discontinue; Cipro 500 mg BID p.o. ok. EGD in a.m. (10/22) for EV screening. Her INR is 1.9 therefore no plans to band with this abnormality. She is s/p vitamin K challenge. NPO at NE. Will arrange op follow up for cirrhosis management. Likely discharge soon otherwise. Chief Complaint: Cirrhosis Subjective: Perpetual Assessment: Hetal Jasso is a 64 y.o. y/o female with no e/o GI bleeding, HE, or recurrentascites. No fevers. Tolerating diet. Review of Systems: Three systems were reviewed and negative except for those as specified in the history of present illness Labs: Results from last 7 days Lab Units 10/22/19 0437 10/21/19 0602 10/19/19 0406 WBC K/mcL 1.61* 1.46* 1.83* HGB g/dL 11.5* 11.2* 11.0* HCT % 35.1* 32.8* 33.3* PLT K/mcL 31* 29* 29* Results from last 7 days Lab Units 10/22/19 0437 10/21/19 0602 10/19/19 0406 SODIUM mmol/L 136 135 136 POTASSIUM mmol/L 3.6 3.6 3.7 CHLORIDE mmol/L 96* 97* 99 BUN mg/dL 10 10 9 CREATININE mg/dL 0.31* <0.20* <0.20* CALCIUM mg/dL 8.5 8.3* 8.3* TOTAL PROTEIN g/dL 4.2* 4.0* 4.2* BILIRUBIN TOTAL mg/dL 3.7* 3.8* 5.5* ALK PHOS U/L 153* 150 161* ALT U/L 21 19 19 AST U/L 39 37 33 GLUCOSE mg/dL 171* 243* 348* Physical Examination: Temp: [97.7 F (36.5 C)-98.3 F (36.8 C)] 98.3 F (36.8 C) Heart Rate: [82-89] 85 Resp: [12-16] 14 BP: (90-100)/(47-64) 99/58 CONSTITUTIONAL: Awake, NAD ABDOMEN:Roud, softly distended, non-tender. SKIN: No jaundice Results/Medications Reviewed 10/22/19 12:51 PM: Laboratory, Radiology, Medications and Transcriptions DELROY BarreraC [facility] [phone] (for staff use only) * Aruna Pace RN - 10/22/2019 11:16 AM EDT COMPLEX DISCHARGE Date: 10/22/2019 Time: 11:16 AM Patient Name: Hetal Jasso Date of : 1955 Sex: Female Discharge Planning Living Arrangements: Friends Support Systems: Friends/neighbors Assistance Needed: possible Type of Residence: Private residence Prior to Admission Home Care Services: No Current Home Equipment: None Anticipated HME: None Anticipated Home Care Needs: Undetermined Anticipated Discharge Plan Anticipated HME: None Anticipated Home Care Needs: Undetermined Potential for Readmission Potential for Readmission: No Discharge Readiness Expected Discharge Date: 10/22/19 [facility] Disposition D/C Disposition: Home Spoke with pt again about PCP and she was able to provide me of name of Dr. Niko Mccoy who she has appt scheduled 10/21. Called office and spoke with Katya and able to reschedule appt for October 27Monday at 2pm. Pt provided updated appt and also placed in [facility] Dr. Niko Mccoy [address] [facility] [place] [address] Phone (Primary Care): [phone] Appt October 27 at 2pm. * Brenda Leon CNP - 10/21/2019 12:28 PM EDT GASTROENTEROLOGY DAILY PROGRESS NOTE 2 Patient Name: Hetal Jasso MR #: [id number] Assessment/Plan: Decompensated hepatic cirrhosis (HCC) Assessment & Plan 64 year old female PMHx alcohol abuse, cirrhosis (diagnosed 10yrs ago), COPD who presented to [facility] with LE swelling and SOB. Found to have cirrhosis with ascites, b/l pleural effusions, and multiple lab abnormalities. Transferred to [facility] and GI consulted for further evaluation of decompensated cirrhosis. Reports sobriety x 4 years. --decompensated ETOH cirrhosis w/ thrombocytopenia and ascites --MELD-NA: 22 --Serologic evaluation: ~~Viral hepatitis panel: negative ~~MAGDA: ASMA: AMA; Ceruloplasmin; Iron Studies: normal --s/p paracentesis (10/17): 350 ml removed ~~elevated WBC-->% segs remain pending-->abnormal cells noted and awaiting pathology --on Rocephin 2 grams IV daily for presumed SBP --MRI/MRCP (10/19): multiple communicating intra- and intrahepatic ductal cysts to include the suspicious lesion in the left hepatic lobe; type 4 biliary cyst; cirrhosis w/o arterially enhancing lesion; small ascites; moderate left and R pleural effusion --AFP: normal --on Aldactone 100 mg daily and Lasix 40mg IV daily --electrolytes and renal function stable --afebrile; SBP (90's) Work-up: --CTPA ([facility]): neg PE; moderate b/l pleural effusions L>R, e/o pulmonary HTN, cirrhosis w splenomegaly, moderate ascites, and hepatic cysts --RUQ U/S with 1 cm hypoechoic lesion and PV thrombus Plans: 1) Continue diuretics at current dose. CMP daily 2) 2 gram NA diet 3) Will plan for EGD for variceal screening, timing to be determined Chief Complaint: Shortness of breath Lower extremity edema Subjective: Perpetual Assessment: Hetal Jasso is a 64 y.o. female with PMHx significant for decompensated cirrhosis. Some fluid studies are pending. Tolerating diet. Denies abdominal pain. Review of Systems: Three systems were reviewed and negative except for those as specified in the history of present illness Labs: Results from last 7 days Lab Units 10/21/19 0602 10/19/19 0406 10/18/19 1529 WBC K/mcL 1.46* 1.83* 1.95* HGB g/dL 11.2* 11.0* 11.9* HCT % 32.8* 33.3* 35.3* PLT K/mcL 29* 29* 25* Results from last 7 days Lab Units 10/21/19 0602 10/19/19 0406 10/18/19 1529 SODIUM mmol/L 135 136 138 POTASSIUM mmol/L 3.6 3.7 2.7* CHLORIDE mmol/L 97* 99 98 BUN mg/dL 10 9 7* CREATININE mg/dL <0.20* <0.20* <0.20* CALCIUM mg/dL 8.3* 8.3* 8.4 TOTAL PROTEIN g/dL 4.0* 4.2* 4.4* BILIRUBIN TOTAL mg/dL 3.8* 5.5* 6.2* ALK PHOS U/L 150 161* 170* ALT U/L 19 19 22 AST U/L 37 33 37 GLUCOSE mg/dL 243* 348* 237* Physical Examination: Temp: [97.7 F (36.5 C)-98.3 F (36.8 C)] 97.8 F (36.6 C) Heart Rate: [83-91] 83 Resp: [12-16] 14 BP: (93-101)/(55-66) 96/61 CONSTITUTIONAL: Appropriate attention to grooming, normal body habitus, Sitting up in bed in NAD ABDOMEN: + ascites; mild L sided abdominal discomfort to palpation, + BS SKIN: Jaundice Results/Medications Reviewed 10/21/19 12:29 PM: Laboratory, Radiology, Medications and Transcriptions Brenda Leon * Syeda Kate MD - 10/21/2019 12:24 PM EDT [facility] Inpatient Progress Note 10/21/2019 Hetal Jasso 1955 [id number] Assessment/Plan: Hetal Jasso is a 64 y.o. female with a history of alcoholic cirrhosis diagnosed in 2009, alcohol abuse in remission, COPD, arthritis who presented to [facility] on 10/17/19 with 7 days of peripheral swelling and dyspnea. CT PA found no PE but noted mod-large left and small-mod right pleural effusions, pulmonary HTN, cirrhotic changes and moderate ascites. Na 134, K 3.1, BG 452, Dbili 2.7, Tbili 5.6, Alk Phos 241, WBC 1.97, Plt 30, INR 1.8, A1c 9.6. Transferred to [facility] 10/18/2019 for GI consult and further care. 1. Decompensated alcoholic cirrhosis: pt endorses being diagnosis with cirrhosis in 2009, stopped drinking alcohol in 2015. Has chronic leukopenia and thrombocytopenia per EMR as below. No prior screening EGD or evaluation by GI per pt. [facility] Dbili 2.7, Tbili 5.6, Alk Phos 241, WBC 1.97, Plt 30, INR 1.8. OL CT PA noted moderate ascites but exam reveals minimal abdominal distension. No signs of peritonitis. Started IV Lasix daily, PO Aldactone, consulted GI and IR for diagnostic paracentesis. Paracentesis 10/18/19 with 350ml out. Fluid studies pending. Started Rocephin for SBP proph. 2. Bilateral pleural effusions: [facility] CT PA found mod-large left and small-mod right pleural effusions, BNP 204. Likely secondary to above but possible cardiac component. TTE 10/18/19 found EF 60%, milddiastolic dysfunction. Started IV Lasix as above. 3. Acute hypoxic respiratory failure: secondary to pleural effusions, volume overload. Requiring 2Loxygen. IV diuresis as above. Encouraged IS use, wean oxygen as able for goal sat >88%. 4. Peripheral edema: L>R, developed 1-2 weeks before admit. Likely due to decompensated cirrhosis but given unequal swelling, ordered BLEVD. OL CT PA negative for PE. IV diuresis as above. 5. Chronic thrombocytopenia: and leukopenia since 2008. Secondary to alcoholic cirrhosis. Baseline WBC 2.5, Plt 45-60, Hgb ~14 per lab review. [facility] Plt 30, WBC 1.97, Hgb 13.1. No signs of bleeding currently. Further GI workup as above. Monitor counts, transfuse Plts if <20. 6. Coagulopathy: secondary to cirrhosis. INR 1.8 at [facility]. No signs of bleeding. Monitor labs daily. FFP if needed. 7. New onset diabetes mellitus: pt denies prior diagnosis. BG 452 at [facility], A1c 9.6. Reviewed labs and noted BG 200s since 2008. Started low dose basal, SSI. Titrate prn. Consulted Province Archivist. 8. Right ventricular systolic dysfunction: TTE 10/18/19 noted moderate RV dilation, mild reduction in systolic function. CT PA at [facility] negative for PE. Follow up outpatient with Cardio for repeat TTE in 3-6 months. 9. COPD: per history. No home oxygen. No acute exacerbation. No home inhalers. Ordered PRN albuterol nebs. 10. Alcoholism in remission: longstanding alcohol abuse, stopped drinking 4 years prior per pt. Encouraged continued sobriety. 11. Insomnia: recent complaint. Started Melatonin nightly on admit. 12. Constipation: takes stool softner at home, continued. 13. DVT prophylaxis: SCDs. Current living situation: home Expected Disposition: home? Estimated discharge date: TBD Subjective: Patient feeling a little bit better today. Went over MRCP results. Discussed diuretic regimen with GI Team. Physical Exam: BP 96/61 (BP Location: Left arm, Patient Position: Lying) Pulse 83 Temp 97.8 F (36.6 C) (Oral) Resp 14 Ht 5' 5 Wt 61 kg (134 lb 7.7 oz) SpO2 94% BMI 22.38 kg/m General: NAD, mild jaundice Eyes: EOMI ENT: neck supple Cardiovascular: Regular rate. Respiratory: Clear to auscultation Gastrointestinal: Soft, non tender Genitourinary: no suprapubic tenderness Musculoskeletal: +2 pitting edema to midthigh. Skin: warm, dry Neuro: Alert. Psych: Mood appropriate. Current Medications: cefTRIAXone (ROCEPHIN) IVPB 2,000 mg Intravenous Q24H furosemide 40 mg Intravenous Daily insulin glargine 20 Units Subcutaneous Nightly lispro insulin 0-15 Units Subcutaneous at bedtime insulin lispro 0-30 Units Subcutaneous TID AC melatonin 3 mg Oral Nightly senna-docusate 1 tablet Oral BID spironolactone 100 mg Oral Daily Labs, Imaging and Studies reviewed: Results from last 7 days Lab Units 10/21/19 0602 10/19/19 0406 10/18/19 1529 WBC K/mcL 1.46* 1.83* 1.95* HGB g/dL 11.2* 11.0* 11.9* HCT % 32.8* 33.3* 35.3* PLT K/mcL 29* 29* 25* Results from last 7 days Lab Units 10/21/19 0602 10/19/19 0406 10/18/19 1529 10/17/19 1520 SODIUM mmol/L 135 136 138 134* POTASSIUM mmol/L 3.6 3.7 2.7* 3.1* CHLORIDE mmol/L 97* 99 98 97* BICARB mmol/L 29 29 27 25 BUN mg/dL 10 9 7* 5* CREATININE mg/dL <0.20* <0.20* <0.20* 0.53* EGFR mL/min/1.73 m2 -- -- -- 99 GLUCOSE mg/dL 243* 348* 237* 452* CALCIUM mg/dL 8.3* 8.3* 8.4 8.3* Results from last 7 days Lab Units 10/21/19 0602 10/19/19 0406 10/18/19 1529 ALT U/L 19 19 22 AST U/L 37 33 37 ALK PHOS U/L 150 161* 170* BILIRUBIN TOTAL mg/dL 3.8* 5.5* 6.2* Results from last 7 days Lab Units 10/21/19 0602 10/20/19 0514 10/19/19 0406 INR 2.0* 2.1* 2.0* * Syeda Kate MD - 10/20/2019 12:44 PM EDT [facility]2019 Hetal Jasso 1955 [id number] Assessment/Plan: Hetal Jasso is a 64 y.o. female with a history of alcoholic cirrhosis diagnosed in 2009, alcohol abuse in remission, COPD, arthritis who presented to [facility] on 10/17/19 with 7 days of peripheral swelling and dyspnea. CT PA found no PE but noted mod-large left and small-mod right pleural effusions, pulmonary HTN, cirrhotic changes and moderate ascites. Na 134, K 3.1, BG 452, Dbili 2.7, Tbili 5.6, Alk Phos 241, WBC 1.97, Plt 30, INR 1.8, A1c 9.6. Transferred to [facility] 10/18/2019 for GI consult and further care. 1. Decompensated alcoholic cirrhosis: pt endorses being diagnosis with cirrhosis in 2009, stopped drinking alcohol in 2016. Has chronic leukopenia and thrombocytopenia per EMR as below. No prior screening EGD or evaluation by GI per pt. [facility] Dbili 2.7, Tbili 5.6, Alk Phos 241, WBC 1.97, Plt 30, INR 1.8. OL CT PA noted moderate ascites but exam reveals minimal abdominal distension. No signs of peritonitis. Started IV Lasix daily, PO Aldactone, consulted GI and IR for diagnostic paracentesis. Paracentesis 10/18/19 with 350ml out. FLuid studies pending. Started Rocephin for SBP proph. 2. Bilateral pleural effusions: OL CT PA found mod-large left and small-mod right pleural effusions, BNP 204. Likely secondary to above but possible cardiac component. TTE 10/18/19 found EF 60%, milddiastolic dysfunction. Started IV Lasix as above. 3. Acute hypoxic respiratory failure: secondary to pleural effusions, volume overload. Requiring 2Loxygen. IV diuresis as above. Encouraged IS use, wean oxygen as able for goal sat >88%. 4. Peripheral edema: L>R, developed 1-2 weeks before admit. Likely due to decompensated cirrhosis but given unequal swelling, ordered BLEVD. [facility] CT PA negative for PE. IV diuresis as above. 5. Chronic thrombocytopenia: and leukopenia since 2008. Secondary to alcoholic cirrhosis. Baseline WBC 2.5, Plt 45-60, Hgb ~14 per lab review. [facility] Plt 30, WBC 1.97, Hgb 13.1. No signs of bleeding currently. Further GI workup as above. Monitor counts, transfuse Plts if <20. 6. Coagulopathy: secondary to cirrhosis. INR 1.8 at [facility]. No signs of bleeding. Monitor labs daily. FFP if needed. 7. New onset diabetes mellitus: pt denies prior diagnosis. BG 452 at [facility], A1c 9.6. Reviewed labs and noted BG 200s since 2008. Started low dose basal, SSI. Titrate prn. Consulted Province Archivist. 8. Right ventricular systolic dysfunction: TTE 10/18/19 noted moderate RV dilation, mild reduction in systolic function. CT PA at [facility] negative for PE. Follow up outpatient with Cardio for repeat TTE in 3-6 months. 9. COPD: per history. No home oxygen. No acute exacerbation. No home inhalers. Ordered PRN albuterol nebs. 10. Alcoholism in remission: longstanding alcohol abuse, stopped drinking 4 years prior per pt. Encouraged continued sobriety. 11. Insomnia: recent complaint. Started Melatonin nightly on admit. 12. Constipation: takes stool softner at home, continued. 13. DVT prophylaxis: SCDs. Current living situation: home Expected Disposition: home Estimated discharge date: TBD Subjective: Patient feeling a little bit better today. Awaiting MRCP. Tolerating diuretics Physical Exam: BP 97/60 (BP Location: Left arm, Patient Position: Lying) Pulse 90 Temp 97.7 F (36.5 C) (Oral) Resp 14 Ht 5' 5 Wt 61 kg (134 lb 7.7 oz) SpO2 93% BMI 22.38 kg/m General: NAD, mild jaundice Eyes: EOMI ENT: neck supple Cardiovascular: Regular rate. Respiratory: Clear to auscultation Gastrointestinal: Soft, non tender Genitourinary: no suprapubic tenderness Musculoskeletal: +2 pitting edema to midthigh. Skin: warm, dry Neuro: Alert. Psych: Mood appropriate. Current Medications: cefTRIAXone (ROCEPHIN) IVPB 2,000 mg Intravenous Q24H furosemide 40 mg Intravenous Daily insulin glargine 20 Units Subcutaneous Nightly lispro insulin 0-15 Units Subcutaneous at bedtime insulin lispro 0-30 Units Subcutaneous TID AC melatonin 3 mg Oral Nightly senna-docusate 1 tablet Oral BID spironolactone 100 mg Oral Daily Labs, Imaging and Studies reviewed: Results from last 7 days Lab Units 10/19/19 0406 10/18/19 1529 10/17/19 1520 WBC K/mcL 1.83* 1.95* 1.97* HGB g/dL 11.0* 11.9* 13.1 HCT % 33.3* 35.3* 38.6 PLT K/mcL 29* 25* 30* Results from last 7 days Lab Units 10/19/19 0406 10/18/19 1529 10/17/19 1520 SODIUM mmol/L 136 138 134* POTASSIUM mmol/L 3.7 2.7* 3.1* CHLORIDE mmol/L 99 98 97* BICARB mmol/L 29 27 25 BUN mg/dL 9 7* 5* CREATININE mg/dL <0.20* <0.20* 0.53* EGFR mL/min/1.73 m2 -- -- 99 GLUCOSE mg/dL 348* 237* 452* CALCIUM mg/dL 8.3* 8.4 8.3* Results from last 7 days Lab Units 10/19/19 0406 10/18/19 1529 10/17/19 1520 ALT U/L 19 22 -- ALTR U/L -- -- 30 AST U/L 33 37 50* ALK PHOS U/L 161* 170* 241* BILIRUBIN TOTAL mg/dL 5.5* 6.2* 5.6* Results from last 7 days Lab Units 10/20/19 0514 10/19/19 0406 10/18/19 1529 INR 2.1* 2.0* 1.9* * Delores Lopez MD - 10/20/2019 11:16 AM EDT GASTROENTEROLOGY DAILY PROGRESS NOTE 2 Patient Name: Hetal Jasso MR #: [id number] Assessment/Plan: Decompensated hepatic cirrhosis (HCC) Assessment & Plan 64 year old female PMHx alcohol abuse, cirrhosis (diagnosed 10yrs ago), COPD who presented to [facility] with LE swelling and SOB. Found to have cirrhosis with ascites, b/l pleural effusions, and multiple lab abnormalities. Transferred to [facility] and GI consulted for further evaluation of decompensated cirrhosis. Reports sobriety x 4 years. - CTPA ([facility]): neg PE; moderate b/l pleural effusions L>R, e/o pulmonary HTN, cirrhosis w splenomegaly, moderate ascites, and hepatic cysts - RUQ U/S with 1 cm hypoechoic lesion and PV thrombus IMP: Decompensated alcoholic cirrhosis with ascites and volume overload RECS: - Need to f/u on fluid studies to determine if she in fact does have SBP (% segs pending). Spoke [facility] lab this morning. Abnormal cells seen so this has been sent to pathology for further evaluation. Agree with Ceftriaxone for now for presumed SBP. - Recommend MRI/MRCP further evaluation of abnormal ultrasound (ordered) - serologies pending, will f/u - AFP pending -will need EGD at some point for variceal screening at some point - 2gm Na diet - Diuretics started but will likely need uptitrated Chief Complaint: Cirrhosis Subjective: No acute overnight events. Patient resting comfortably in bed this morning. Denies abdominal pain, nausea, vomiting. Review of Systems: Three systems were reviewed and negative except for those as specified in the history of present illness Labs: Results from last 7 days Lab Units 10/19/19 0406 10/18/19 1529 10/17/19 1520 WBC K/mcL 1.83* 1.95* 1.97* HGB g/dL 11.0* 11.9* 13.1 HCT % 33.3* 35.3* 38.6 PLT K/mcL 29* 25* 30* Results from last 7 days Lab Units 10/19/19 0406 10/18/19 1529 10/17/19 1520 SODIUM mmol/L 136 138 134* POTASSIUM mmol/L 3.7 2.7* 3.1* CHLORIDE mmol/L 99 98 97* BUN mg/dL 9 7* 5* CREATININE mg/dL <0.20* <0.20* 0.53* CALCIUM mg/dL 8.3* 8.4 8.3* TOTAL PROTEIN g/dL 4.2* 4.4* 5.4* BILIRUBIN TOTAL mg/dL 5.5* 6.2* 5.6* ALK PHOS U/L 161* 170* 241* ALT U/L 19 -- ALTR U/L -- -- 30 AST U/L 33 37 50* GLUCOSE mg/dL 348* 237* 452* Physical Examination: Temp: [97.7 F (36.5 C)-98.3 F (36.8 C)] 97.7 F (36.5 C) Heart Rate: [82-90] 90 Resp: [14-18] 14 BP: (97-131)/(60-88) 97/60 CONSTITUTIONAL: No acute distress ABDOMEN: Soft, negative hepatosplenomegaly, soft and non-tender. SKIN: No jaundice Results/Medications Reviewed 10/20/19 11:16 AM: Laboratory, Radiology and Medications Delores Lopez * Delores Lopez MD - 10/19/2019 3:17 PM EDT GASTROENTEROLOGY DAILY PROGRESS NOTE 2 Patient Name: Hetal Jasso MR #: [id number] Assessment/Plan: Decompensated hepatic cirrhosis (HCC) Assessment & Plan 64 year old female PMHx alcohol abuse, cirrhosis (diagnosed 10yrs ago), pancytopenia, and COPD who presented to [facility] with LE swelling and SOB. Found to have cirrhosis with ascites, b/l pleural effusions, and multiple lab abnormalities. Transferred to [facility] and GI consulted for further evaluation of dec ompensated cirrhosis. - pt reports sobriety x 4 years - CTPA ([facility]): neg PE; moderate b/l pleural effusions L>R, e/o pulmonary HTN, cirrhosis w splenomegaly, moderate ascites, and hepatic cysts - RUQ U/S with 1 cm hypoechoic lesion and PV thrombus IMP: Decompensated cirrhosis w ascites and fluid overload. Likely related to prior hx of EtOH abuse RECS: - Need to f/u on fluid studies to determine if has SBP (% segs pending). Agree with Ceftriaxone fornow. - Recommend MRI/MRCP further evaluation of abnormal ultrasound - serologies pending, will f/u - will add AFP to morning labs -will need EGD at some point for variceal screening at some point - 2gm Na diet - Diuretics started but will likely need uptitrated Chief Complaint: Cirrhosis Subjective: No acute distress. Drowsy this morning. Review of Systems: Three systems were reviewed and negative except for those as specified in the history of present illness Labs: Results from last 7 days Lab Units 10/19/19 0406 10/18/19 1529 10/17/19 1520 WBC K/mcL 1.83* 1.95* 1.97* HGB g/dL 11.0* 11.9* 13.1 HCT % 33.3* 35.3* 38.6 PLT K/mcL 29* 25* 30* Results from last 7 days Lab Units 10/19/19 0406 10/18/19 1529 10/17/19 1520 SODIUM mmol/L 136 138 134* POTASSIUM mmol/L 3.7 2.7* 3.1* CHLORIDE mmol/L 99 98 97* BUN mg/dL 9 7* 5* CREATININE mg/dL <0.20* <0.20* 0.53* CALCIUM mg/dL 8.3* 8.4 8.3* TOTAL PROTEIN g/dL 4.2* 4.4* 5.4* BILIRUBIN TOTAL mg/dL 5.5* 6.2* 5.6* ALK PHOS U/L 161* 170* 241* ALT U/L 19 22 -- ALTR U/L -- -- 30 AST U/L 33 37 50* GLUCOSE mg/dL 348* 237* 452* Physical Examination: Temp: [97.3 F (36.3 C)-98.3 F (36.8 C)] 97.9 F (36.6 C) Heart Rate: [87-98] 87 Resp: [14-16] 16 BP: (91-115)/(53-84) 99/63 CONSTITUTIONAL: No acute distress ABDOMEN: Soft, negative hepatosplenomegaly, soft and non-tender. SKIN: No jaundice Results/Medications Reviewed 10/19/19 3:17 PM: Laboratory, Radiology and Medications Delores Lopez * Syeda Kate MD - 10/19/2019 12:59 PM EDT [facility] Inpatient Progress Note 10/19/2019 Hetal Jasso 1955 [id number] Assessment/Plan: Hetal Jasso is a 64 y.o. female with a history of alcoholic cirrhosis diagnosed in 2009, alcohol abuse in remission, COPD, arthritis who presented to [facility] on 10/17/19 with 7 days of peripheral swelling and dyspnea. CT PA found no PE but noted mod-large left and small-mod right pleural effusions, pulmonary HTN, cirrhotic changes and moderate ascites. Na 134, K 3.1, BG 452, Dbili 2.7, Tbili 5.6, Alk Phos 241, WBC 1.97, Plt 30, INR 1.8, A1c 9.6. Transferred to [facility] 10/18/2019 for GI consult and further care. 1. Decompensated alcoholic cirrhosis: pt endorses being diagnosis with cirrhosis in 2009, stopped drinking alcohol in 2015. Has chronic leukopenia and thrombocytopenia per EMR as below. No prior screening EGD or evaluation by GI per pt. [facility] Dbili 2.7, Tbili 5.6, Alk Phos 241, WBC 1.97, Plt 30, INR 1.8. [facility] CT PA noted moderate ascites but exam reveals minimal abdominal distension. No signs of peritonitis. Started IV Lasix daily, PO Aldactone, consulted GI and IR for diagnostic paracentesis. Paracentesis 10/18/19 with 350ml out. FLuid studies pending. Started Rocephin for SBP proph. 2. Bilateral pleural effusions: [facility] CT PA found mod-large left and small-mod right pleural effusions, BNP 204. Likely secondary to above but possible cardiac component. TTE 10/18/19 found EF 60%, milddiastolic dysfunction. Started IV Lasix as above. 3. Acute hypoxic respiratory failure: secondary to pleural effusions, volume overload. Requiring 2Loxygen. IV diuresis as above. Encouraged IS use, wean oxygen as able for goal sat >88%. 4. Peripheral edema: L>R, developed 1-2 weeks before admit. Likely due to decompensated cirrhosis but given unequal swelling, ordered BLEVD. [facility] CT PA negative for PE. IV diuresis as above. 5. Chronic thrombocytopenia: and leukopenia since 2008. Secondary to alcoholic cirrhosis. Baseline WBC 2.5, Plt 45-60, Hgb ~14 per lab review. [facility] Plt 30, WBC 1.97, Hgb 13.1. No signs of bleeding currently. Further GI workup as above. Monitor counts, transfuse Plts if <20. 6. Coagulopathy: secondary to cirrhosis. INR 1.8 at [facility]. No signs of bleeding. Monitor labs daily. FFP if needed. 7. New onset diabetes mellitus: pt denies prior diagnosis. BG 452 at [facility], A1c 9.6. Reviewed labs and noted BG 200s since 2008. Started low dose basal, SSI. Titrate prn. Consulted Province Archivist. 8. Right ventricular systolic dysfunction: TTE 10/18/19 noted moderate RV dilation, mild reduction in systolic function. CT PA at [facility] negative for PE. Follow up outpatient with Cardio for repeat TTE in 3-6 months. 9. COPD: per history. No home oxygen. No acute exacerbation. No home inhalers. Ordered PRN albuterol nebs. 10. Alcoholism in remission: longstanding alcohol abuse, stopped drinking 4 years prior per pt. Encouraged continued sobriety. 11. Insomnia: recent complaint. Started Melatonin nightly on admit. 12. Constipation: takes stool softner at home, continued. 13. DVT prophylaxis: SCDs. Current living situation: home Expected Disposition: home Estimated discharge date: TBD Subjective: Patient new to me. Fatigued. A little confused but didn't sleep well per nursing. Still fairly swollen but tolerating diuretics. Physical Exam: BP 99/63 (BP Location: Left arm, Patient Position: Lying) Pulse 87 Temp 97.9 F (36.6 C) (Oral) Resp 16 Ht 5' 5 Wt 61 kg (134 lb 7.7 oz) SpO2 94% BMI 22.38 kg/m General: NAD Eyes: EOMI ENT: neck supple Cardiovascular: Regular rate. Respiratory: Clear to auscultation Gastrointestinal: Soft, non tender Genitourinary: no suprapubic tenderness Musculoskeletal: +2 pitting edema to midthigh. Skin: warm, dry Neuro: Alert. Psych: Mood appropriate. Current Medications: furosemide 40 mg Intravenous Daily insulin glargine 20 Units Subcutaneous Nightly lispro insulin 0-15 Units Subcutaneous at bedtime insulin lispro 0-30 Units Subcutaneous TID AC melatonin 3 mg Oral Nightly senna-docusate 1 tablet Oral BID [START ON 10/20/2019] spironolactone 50 mg Oral Daily Labs, Imaging and Studies reviewed: Results from last 7 days Lab Units 10/19/19 0406 10/18/19 1529 10/17/19 1520 WBC K/mcL 1.83* 1.95* 1.97* HGB g/dL 11.0* 11.9* 13.1 HCT % 33.3* 35.3* 38.6 PLT K/mcL 29* 25* 30* Results from last 7 days Lab Units 10/19/19 0406 10/18/19 1529 10/17/19 1520 SODIUM mmol/L 136 138 134* POTASSIUM mmol/L 3.7 2.7* 3.1* CHLORIDE mmol/L 99 98 97* BICARB mmol/L 29 27 25 BUN mg/dL 9 7* 5* CREATININE mg/dL <0.20* <0.20* 0.53* EGFR mL/min/1.73 m2 -- -- 99 GLUCOSE mg/dL 348* 237* 452* CALCIUM mg/dL 8.3* 8.4 8.3* Results from last 7 days Lab Units 10/19/19 0406 10/18/19 1529 10/17/19 1520 ALT U/L 19 22 -- ALTR U/L -- -- 30 AST U/L 33 37 50* ALK PHOS U/L 161* 170* 241* BILIRUBIN TOTAL mg/dL 5.5* 6.2* 5.6* Results from last 7 days Lab Units 10/19/19 0406 10/18/19 1529 10/17/19 1520 INR 2.0* 1.9* 1.8* * Nissa Boudreaux, RN - 10/18/2019 9:43 AM EDT Pt [facility] to [facility]. Very pleasant. Discoloration of right forearm and elbow, discoloartion and edema of bilat lower extremities. +2. Ecchymosis from recent fall 3 days ago left forearm and elbow.acities of abd pt reports about 3 days now. Barrel shaped chest. Pt states she has COPD no current O2 use at home. [facility] reported this pt de stats quickly. bilat fine crackles upper and lower lobes. No palpable popliteal or pedal pulses, will get a doppler and re check documented in this encounter* Anna Kyle LSW - 07/07/2020 4:32 PM EDT Sister now refusing to transport, [facility] contacted and they will provide the transportation. [facility] madeaware of this change. LEÓN Nelson 07/07/2020 * Anna Kyle LSW - 07/07/2020 4:17 PM EDT Patient to be discharged to [facility] today. Sister, Fredy, to provide the transportation. [facility] aware and inform this communications writer that Patient will have to quarantine as she has not had Covid nor has she been vaccinated as of this date. RN to inform sister of the same. LEÓN Nelson 07/07/2020 * Zoe Sharma LSW - 07/07/2020 3:48 PM EDT Patient is discharge back to [facility] today. The discharge paper work is done and fax to the SNF. LEÓN Monroy * Maryjane Momin MD - 07/07/2020 1:21 PM EDT Physician Progress Note PATIENT: HETAL JASSO CSN #: [id number] : 1955 ADMIT DATE: 07/04/2020 5:29 PM DISCH DATE: RESPONDING PROVIDER #: MARYJANE MOMIN MD QUERY TEXT: Pt admitted with altered mental status, febrile illness, and alcoholic cirrhosis of liver with ascites. ED provider documented Hepatic encephalopathy If possible, please document in the progress notes and discharge summary if you are evaluating and / or treating any of the following: The medical record reflects the following: Risk Factors: Hx dementia, history of cirrhosis, frequent UTIs. Clinical Indicators: Per ED provider: alert, no oriented. Per H&P: alert, disoriented; Per 07/06/20 Infectious Diseases consult: Admitted with altered mentation which has resolved; Current information does not suggest a urinary tract infection or septicemia; Admission temp 103.1; Lactic acid 2.4; Ammonia 84, bilirubin 3.93 Treatment: IV NS bolus and infusions, IV Rocephin, IV Enrike Sultana RN, CCDS Clinical Crusher Setter [phone] . Options provided: -- Hepatic encephalopathy acute -- Hepatic encephalopathy chronic -- Metabolic encephalopathy -- Septic encephalopathy -- Toxic encephalopathy -- Encephalopathy due to medications or drugs, Please specify -- Toxic metabolic encephalopathy -- Delirium due to, Please specify cause. -- Delirium -- Other - I will add my own diagnosis -- Disagree - Not applicable / Not valid -- Disagree - Clinically unable to determine / Unknown -- Refer to Clinical Documentation Reviewer PROVIDER RESPONSE TEXT: This patient has metabolic encephalopathy. Query created by: Nat Sultana on 07/06/2020 3:34 PM Electronically signed by: MARYJANE MOMIN MD 07/07/2020 1:19 PM * Snow Almonte OT - 07/07/2020 11:37 AM EDT Occupational Therapy Facility/Department: [facility] Daily Treatment Note NAME: Hetal Jasso : 1955 Date of Service: 07/07/2020 Discharge Recommendations: Continue to assess pending progress Assessment OT Education: OT Role;Plan of Care;Transfer Training;Energy Conservation;IADL Safety;Home Exercise Program;Precautions;Equipment;ADL Adaptive Strategies Activity Tolerance Activity Tolerance: Patient tolerated treatment well Safety Devices Safety Devices in place: Yes Type of devices: Call light within reach;Nurse notified;All fall risk precautions in place;Gait belt;Bed alarm in place;Patient at risk for falls;Left in chair;Chair alarm in place Patient Diagnosis(es): The primary encounter diagnosis was Hepatic encephalopathy (HCC). A diagnosis of Acute cystitis without hematuria was also pertinent to this visit. has a past medical history of Acquired coagulation factor deficiency (HCC), Alcohol dependence in remission (HCC), Alcoholic cirrhosis of liver with ascites (HCC), Chronic obstructive pulmonary disease (HCC), Constipation, Diabetes mellitus (HCC), Difficulty walking, Insomnia, Major depression, Other pancytopenia (HCC), Portal hypertension (HCC), Right heart failure, unspecified (HCC), Thrombocytopenia, unspecified (HCC), and Weakness. has no past surgical history on file. Restrictions Restrictions/Precautions Restrictions/Precautions: General Precautions, Fall Risk Subjective General Chart Reviewed: Yes Patient assessed for rehabilitation services?: Yes Response to previous treatment: Patient with no complaints from previous session Family / Caregiver Present: No Referring Practitioner: Dr Momin Diagnosis: Febrile illness Subjective Subjective: Patient denies pain at this time General Comment Comments: Patient laying in bed upon OT arrival, agreeable to OT tx with encouragement Objective ADL Feeding: Independent Grooming: Stand by assistance UE Bathing: Stand by assistance LE Bathing: Stand by assistance UE Dressing: Stand by assistance LE Dressing: Stand by assistance Toileting: Stand by assistance Balance Sitting Balance: Independent Standing Balance: Stand by assistance Functional Mobility Functional Mobility Device: No device Activity: To/from bathroom Assist Level: Stand by assistance Toilet Transfers Toilet Technique: Ambulating Equipment Used: Standard toilet Toilet Transfer: Stand by assistance Bed mobility Supine to Sit: Stand by assistance Transfers Stand Pivot Transfers: Stand by assistance Sit to stand: Stand by assistance Stand to sit: Stand by assistance Plan Plan Times per week: 7x/wk Times per day: Daily Current Treatment Recommendations: Strengthening, Balance Training, Functional Mobility Training, Safety Education & Training, Self-Care / ADL Goals Short term goals Time Frame for Short term goals: 20 visits Short term goal 1: Pt will tolerate 15 mins of BUE ther ex/act to increase overall strength/activity tolerance for functional tasks. Short term goal 2: Pt will demo standing tolerance 5-7 mins w/o LOB to increase participation/safety with standing tasks during ADL's. Short term goal 3: Pt will complete self care routine with SUP and G safety to increase (I) with ADL performance. Short term goal 4: Pt will demo G safety during functional ADL transfers/mobility with reduced riskfor falls. Therapy Time Individual Concurrent Group Co-treatment Time In 1051 Time Out 1116 Minutes 25 Timed Code Treatment Minutes: 25 Minutes Snow Almonte OT * Shari Ching, SOLDERING MACHINE SETTER - AUTOMOBILE SERVICE STATION MANAGER - 07/07/2020 9:25 AM EDT Progress Note SUBJECTIVE/INTERVAL HISTORY: Sitting up in chair alert in no acute distress. Afebrile tolerating diet well. Denies pain at this time. Tolerating activity well. OBJECTIVE: Vitals: Temp: 99.7 F (37.6 C) Temp range: Temp Av.8 F (37.1 C) Min: 98 F (36.7 C) Max: 99.7 F (37.6 C) BP: (!) 99/55 BP Range: Systolic (24hrs), Av , Min:87 , Max:104 Diastolic (24hrs), Av, Min:50, Max:55 Pulse: 83 Pulse Range: Pulse Av.8 Min: 70 Max: 83 Resp: 16 Resp Range: Resp Av Min: 13 Max: 18 SpO2: 95 % on room air SpO2 range: SpO2 Av % Min: 93 % Max: 95 % 24HR INTAKE/OUTPUT: Intake/Output Summary (Last 24 hours) at 07/07/2020 0925 Last data filed at 07/07/2020 0519 Gross per 24 hour Intake 200 ml Output 1250 ml Net -1050 ml Exam: GEN: alert and oriented to person, place and time, well-developed and well- nourished, in no acute distress EYES: No gross abnormalities., PERRL and EOMI NECK: normal, supple, no lymphadenopathy, no carotid bruits PULM: clear to auscultation bilaterally- no wheezes, rales or rhonchi, normal air movement, no respiratory distress COR: regular rate & rhythm, no murmurs, no gallops, S1 normal and S2 normal ABD: soft, non-tender, non-distended, normal bowel sounds, no masses or organomegaly EXT: no cyanosis, clubbing or edema present NEURO: follows commands, PEDERSEN, no deficits SKIN: no rashes or significant lesions Diagnostic Data: Lab Results Component Value Date WBC 2.4 (L) 07/07/2020 HGB 11.7 (L) 07/07/2020 HCT 34.5 (L) 07/07/2020 PLT See Reflexed IPF Result 07/07/2020 ALT 31 07/07/2020 AST 51 (H) 07/07/2020 NA 136 07/07/2020 K 3.1 (L) 07/07/2020 CL 106 07/07/2020 CREATININE 0.33 (L) 07/07/2020 BUN 10 07/07/2020 CO2 24 07/07/2020 LABA1C 6.7 (H) 06/23/2020 ASSESSMENT: Principal Problem: Acute cystitis without hematuria Active Problems: Alcoholic cirrhosis of liver with ascites (HCC) Chronic obstructive pulmonary disease (HCC) Diabetes mellitus (HCC) Other pancytopenia (HCC) Febrile illness Resolved Problems: * No resolved hospital problems. * Patient Active Problem List Diagnosis Date Noted Acute cystitis without hematuria 07/07/2020 Febrile illness 07/04/2020 Alcoholic cirrhosis of liver with ascites (HCC) Difficulty walking Weakness Chronic obstructive pulmonary disease (HCC) Alcohol dependence in remission (HCC) Portal hypertension (HCC) Diabetes mellitus (HCC) Major depression Right heart failure, unspecified (HCC) Thrombocytopenia, unspecified (HCC) Other pancytopenia (HCC) Acquired coagulation factor deficiency (HCC) Constipation Insomnia PLAN: Principal Problem: Acute cystitis without hematuria Active Problems: Alcoholic cirrhosis of liver with ascites (HCC) Chronic obstructive pulmonary disease (HCC) Diabetes mellitus (HCC) Other pancytopenia (HCC) Febrile illness Resolved Problems: * No resolved hospital problems. * Febrile illness Appreciate infectious disease CBC and CMP daily Procalcitonin today Pancytopenia Urinalysis culture positive E. coli Blood cultures x2 - Chest x-ray negative Alcoholic cirrhosis of liver with ascites CMP daily Continue lactulose 20 g twice daily COPD IV Rocephin Type 2 diabetes POCT before meals and at bedtime Continue low-dose sliding scale Continue Lantus 26 units at at bedtime High risk medication: Insulin Discharge plan: Today to [facility] with 7 days of IV Rocephin PT/OT Shari Ching APRN, TABLE AND DESK FINISHER-C 07/07/2020, 9:25 AM * Zoe Sharma LSW - 07/07/2020 9:13 AM EDT Updated [facility] that the patient will be coming back with IV rocephin. LEÓN Rmoe * Eleni Fernandez RN - 07/06/2020 9:33 PM EDT Patient refusing her lactulose due to continued loose bowel movements throughout the shift. General Road Supervisor educated patient on the importance of the medication but patient still declined. * Zoe Sharma LSW - 07/06/2020 2:42 PM EDT Discussed discharge plans with the patient. Patient is a 65 year old female here with Febrile illness. She is alert and oriented. She is single and is living at [facility]. Patient moved from [facility] to [facility]. She uses no medical equipment. Patient is independent with her ADL's. The assisted living is managing her medications. Her PCP is Dr. Maryjane Momin MD. She has medical insurance that helps with medication costs. The discharge plan is to return to [facility]. She has a DNR CCA and it is on file. QUALITY PROCESS LEAD to monitor and assist with any needs or concerns as they arise. LEÓN Rome * Bonnie Torres RD, NEENA - 07/06/2020 12:34 PM EDT Comprehensive Nutrition Assessment Type and Reason for Visit: Initial Nutrition Recommendations/Plan: Continue current diet F/u diet education needs Nutrition Assessment: Altered nutrition related labs r/t endocrine dysfunction aeb A1 c 6.7, glucose 225. Ammonia 62, elevated. Dx hepatic encephalopathy. PO has been good. Corrected calcium 8.9. Pt asleep. f/u with diet education needs. Malnutrition Assessment: Malnutrition Status: Insufficient data Context: Chronic Illness Findings of the 6 clinical characteristics of malnutrition: Energy Intake: Unable to assess Weight Loss: Unable to assess Body Fat Loss: Unable to assess Muscle Mass Loss: Unable to assess Fluid Accumulation: 1 - Mild Extremities(trace bilateral LE, + 1 hand) Structural Designer Strength: Not Performed Estimated Daily Nutrient Needs: Energy (kcal): 2079-0398(25-28/kg); Weight Used for Energy Requirements: Current Protein (g): 65-76g(1.2-1.4g/kg); Weight Used for Protein Requirements: Current Fluid (ml/day): 1512 ml; Method Used for Fluid Requirements: 1 ml/kcal Nutrition Related Findings: unable to assess, covered up to face, room darkened, unable to make accurate assessment Wounds: None Current Nutrition Therapies: DIET LOW SODIUM 2 GM; Carb Control: 4 carb choices (60 gms)/meal Anthropometric Measures: Height: 5' 5 (165.1 cm) Current Body Weight: 119 lb (54 kg) Admission Body Weight: 119 lb (54 kg) Usual Body Weight: (unknown, limited historical weights ) [place] Body Weight: 125 lbs; % [place] Body Weight 95.2 % BMI: 19.8 BMI Categories: Normal Weight (BMI 18.5-24.9) Nutrition Diagnosis: Altered nutrition-related lab values related to endocrine dysfuntion as evidenced by lab values Nutrition Interventions: Food and/or Nutrient Delivery: Continue Current Diet Nutrition Education/Counseling: No recommendation at this time Coordination of Nutrition Care: Continue to monitor while inpatient Goals: PO > 75% of meals Recent Labs 07/04/20 1735 07/05/20 0528 NA 136 136 K 3.9 3.9 CL 102 108* CO2 25 22 BUN 11 11 CREATININE 0.44* 0.41* GLUCOSE 159* 293* ALT 28 22 ALKPHOS 119* 92 GFR Lab Results Component Value Date LABALBU 2.5 07/05/2020 Nutrition Monitoring and Evaluation: Behavioral-Environmental Outcomes: None Identified Food/Nutrient Intake Outcomes: Food and Nutrient Intake Physical Signs/Symptoms Outcomes: Biochemical Data, Weight Discharge Planning: Continue Oral Nutrition Supplement Contact: [phone] * Jamarcus Fang RN - 07/06/2020 4:16 AM EDT Resting with eyes closed, respirations are unlabored. Continues SR HR in the 70's * Jamarcus Fang RN - 07/06/2020 12:00 AM EDT Resting with eyes closed, respirations are unlabored. o2 sats trending in the high 90's on room air. SR HR trending in the 70's. * Jamarcus Fang RN - 07/05/2020 7:00 PM EDT PT is alert and oriented. Skin color, turgor and temp are normal. Respirations are unlabored, breath sounds are clear. Abdomin is soft, no guarding. Bowel sounds are present. Denies any dysuria. Voids frequent small amounts. PT is in a SR rates in the 80's. O2 sat trends in the high 90's on room air. Denies any wants or needs at this time. * Lachelle Byrne RN - 07/05/2020 12:17 PM EDT Update given to patients daughter, Jason at this time. * Lachelle Byrne RN - 07/05/2020 12:[address] Supervisor spoke with Dr. Riley at this time. Patient is going to the bathroom about every 15-20 minutes, bladder scanned and says 101 ml at 1056. Patient states that when she feels like she needs to go the bathroom, she feels pressure. Denies burning on urination. General Road Supervisor has seen patient wiping after going to the bathroom and patient wipes from back to the front a few times. General Road Supervisor reviewed best wayto wipe after using the restroom to prevent urinary tract infection. * Lachelle Byrne RN - 07/05/2020 8:31 AM EDT Patient reluctantly sat up in the chair to eat breakfast. Was in the chair for 30 minutes and askedto go back in the bed. General Road Supervisor explained the importance of sitting up in the chair and walking around to open up lung poole and prevent pneumonia. Patient still wants to lay in the bed. Declines wanting to get washed up at this time. General Road Supervisor assisted her into bed. Bed alarm in place. Call light in reach as well as bedside table. * Tara Lanza RN - 07/05/2020 12:[address]visor placed patient on 2L O2 via nasal cannula d/t patient's oxygen maintaining 88-89% while asleep. * Tara Lanza RN - 07/04/2020 11:00 PM EDT Patient given turkey sandwich meal per request. * Tara Lanza RN - 07/04/2020 10:05 PM EDT Patient arrived to ICU room 304 per cart from ED and admitted for hepatic encephalopathy. Patient was able to move self over to ICU bed. Patient arrived with levophed infusing at 2mcg/min. Patient iscurrently A&Ox4 at this time. Patient denies any needs. General Road Supervisor will call [facility] for an emergency contact number. Patient oriented to room and call light. Will continue to monitor. documented in this encounter Summary Purpose Family History No Family History Records Found Relationship Condition Age at Onset Recorded Date/T karla Sibling Diabetes mellitus Unknown Myocardial infarction Unknown Parent Diabetes mellitus Unknown Osteoporosis Unknown Sibling Malignant neoplasm Unknown Relationship Condition Age at Onset Recorded Date/T karla brother Diabetes mellitus Unknown Not Specified Osteoporosis Unknown Reason for Referral Status Reason Specialty Diagnoses / Procedures Referred By Contact Referred To Contact Closed Heart and Vascul ar Diagnostics Diagnoses Pain and swelling of right upper extremity Procedures Venous Duplex Upper Extremity - unilateral Tiffanie Greenberg PA [address] [facility] [place] [address] [facility] [address] [place] [id number] Status Reason Specialty Diagnoses / Procedures Referred By Contact Referred To Contact Pending Review Emergency Medicine Diagnoses Dyspnea, unspecified type Bilateral lower extremity edema Ashia Aguirre CNP [address] [place] [address] [facility] Emergency Dept [address] [place] [address], 1[address] [place] [address] Status Reason Specialty Diagnoses / Procedures Referred By Contact Referred To Contact Pending Review Patient Preference Rehabilitation Diagnoses Decompensated hepatic cirrhosis (HCC) Rivas Monsalve DO [address] [place] [address] [place] [id number] Instructions * Patient Instructions* Ashia Aguirre CNP - 10/17/2019 2:01 PM EDT Leg and Ankle Edema: Care Instructions Your Care Instructions Swelling in the legs, ankles, and feet is called edema. It is common after you sit or stand for a while. Long plane flights or car rides often cause swelling in the legs and feet. You may also have swelling if you have to stand for long periods of time at your job. Problems with the veins in the legs (varicose veins) and changes in hormones can also cause swelling. Sometimes the swelling in the ankles and feet is caused by a more serious problem, such as heart failure, infection, blood clots, or liver or kidney disease. Follow-up care is a tran part of your treatment and safety. Be sure to make and go to all appointments, and call your doctor if you are having problems. It's also a good idea to know your test resultsand keep a list of the medicines you take. How can you care for yourself at home? If your doctor gave you medicine, take it as prescribed. Call your doctor if you think you are having a problem with your medicine. Whenever you are resting, raise your legs up. Try to keep the swollen area higher than the level ofyour heart. Take breaks from standing or sitting in one position. ? Walk around to increase the blood flow in your lower legs. ? Move your feet and ankles often while you stand, or tighten and relax your leg muscles. Wear support stockings. Put them on in the morning, before swelling gets worse. Eat a balanced diet. Lose weight if you need to. Limit the amount of salt (sodium) in your diet. Salt holds fluid in the body and may increase swelling. When should you call for help? [phone] anytime you think you may need emergency care. For example, call if: You have symptoms of a blood clot in your lung (called a pulmonary embolism). These may include: ? Sudden chest pain. ? Trouble breathing. ? Coughing up blood. Call your doctor now or seek immediate medical care if: You have signs of a blood clot, such as: ? Pain in your calf, back of the knee, thigh, or groin. ? Redness and swelling in your leg or groin. You have symptoms of infection, such as: ? Increased pain, swelling, warmth, or redness. ? Red streaks or pus. ? A fever. Watch closely for changes in your health, and be sure to contact your doctor if: Your swelling is getting worse. You have new or worsening pain in your legs. You do not get better as expected. Where can you learn more? Log into your personal health record on https://[employer] and enter N696 in the Education box to learn more about Leg and Ankle Edema: Care Instructions. Current as of: September 26, 2018 Content Version: 12.5 [employer]. Care instructions adapted under license by your healthcare professional. If you have questions about a medical condition or this instruction, always ask your healthcare professional. [employer] disclaims any warranty or liability for your use of this information. documented in this encounter Hospital Course * Rivas Monsalve, DO - 10/26/2019 9:45 AM EDT MEDONE DISCHARGE SUMMARY Hetal Jasso Account: [id number] Admitted: 10/18/2019 Discharge Date/Time: 10/26/19 9:45 AM Handoff to PCP Routine hospital follow up 1. Continued management of insulin regime, will need continued titration of insulin as BG still running elevated. 2. Will need repeat TTE in 3-6 months Clinical Summary Hetal Jasso is a 64yo M with a history of alcoholic cirrhosis diagnosed in 2009, alcohol abuse inremission, COPD, and arthritis. Presented to [facility] on 10/17/19 with 7 days of peripheral swelling and dyspnea. CT PA found no PE but noted mod-large left and small-mod right pleural effusions, pulmonary HTN, cirrhotic changes, and moderate ascites. T/f to [facility] 10/18/2019 for GI consult and furthercare. S/p paracentesis with 350cc out and fluid analysis consistent with portal-HTN etiology. S/p screening EGD 10/23/19 with EV but no banding due to elevated INR. Will need repeat EGD in 1 year and f/u with GI for cirrhosis management. Also, follow up with PCP 1. Decompensated alcoholic cirrhosis: diagnosed with cirrhosis in 2009, stopped drinking alcohol [id number]. Chronic leukopenia and thrombocytopenia. No prior screening EGD or evaluation by GI per pt. [facility] Dbili 2.7, Tbili 5.6, Alk Phos 241, WBC 1.97, Plt 30, INR 1.8. [facility] CT PA noted moderate ascites. Paracentesis 10/18/19 with 350ml out. High SAAG, low protein consistent with portal-HTN. Unable to rule out SBP, completed Rocephin. MR abdomen noted multiple communicating intra- and intrahepatic ductal cysts to include the suspicious lesion in the Left hepatic lobe; type 4 biliary cyst . EGD 10/23/19 with EV noted but no banding due to elevated INR. Continue Lasix and Aldactone. GI signed off andpt will need to follow with GI outpatient and repeat EGD in 1 year. 2. Bilateral pleural effusions: [facility] CT PA found mod-large left and small-mod right pleural effusions, BNP 204. Likely 2/2 above but possible cardiac component. TTE 10/18/19 found EF 60%, mild diastolic dysfunction. Continue Lasix. 3. Acute hypoxic respiratory failure: 2/2 pleural effusions, volume overload. Requiring 2L oxygen. IV diuresis as above. Encouraged IS use, wean oxygen as able for goal sat >88%. Has been comfortable on room air. 4. Peripheral edema: L>R, developed 1-2 weeks before admit. Likely due to decompensated cirrhosis but given unequal swelling. BLEVD on 10/18/19 with no evidence of DVT. [facility] CT PA negative for PE. Likely 2/2 cirrhosis and decreased albumin. 5. Chronic thrombocytopenia: and leukopenia since 2008. Secondary to alcoholic cirrhosis. Baseline WBC 2.5, Plt 45-60, Hgb ~14 per lab review. [facility] Plt 30, WBC 1.97, Hgb 13.1. Stable. Hgb 11.5 (10/26/19). No signs of active bleeding. Follow up with PCP and GI, may also benefit from Hem/Onc evaluationwith pancytopenia to rule out any other underlying pathology. 6. Coagulopathy: secondary to cirrhosis. INR 1.8 at [facility]. No signs of bleeding. Monitor labs daily. INR 1.6 (10/26/19). 7. New onset diabetes mellitus: pt denies prior diagnosis. BG 452 at [facility], A1c 9.6. Reviewed labs and noted BG 200s since 2008. Started low dose basal, SSI. Titrate prn. Consulted Province Archivist. Cognitive Eval by HEAD OF STRATEGY with recommendations that patient would benefit greatly with assistance of daily insulin management. Plans to d/c to SNF. 8. Right ventricular systolic dysfunction: TTE 10/18/19 noted moderate RV dilation, mild reduction in systolic function. CT PA at [facility] negative for PE. Follow up outpatient with Cardio for repeat TTE in 3-6 months. 9. COPD: per history. No home oxygen. No acute exacerbation. No home inhalers. 10. Alcoholism in remission: longstanding alcohol abuse, stopped drinking 4 years prior per pt. Encouraged continued sobriety. 11. Insomnia: recent complaint. Started Melatonin nightly on admit. 12. Constipation: takes stool softner at home, continued. Discharge Medications Medication List START taking these medications albuterol 2.5 mg /3 mL (0.083 %) nebulizer solution Commonly known as: PROVENTIL Take 3 mL (2.5 mg total) by nebulization every 6 (six) hours as needed for wheezing . furosemide 40 MG tablet Commonly known as: LASIX Take 1 (one) tablet (40 mg total) by mouth daily . insulin glargine 100 unit/mL injection Commonly known as: LANTUS Inject 25 (twenty five) Units under the skin nightly . * insulin lispro 100 unit/mL injection Commonly known as: HumaLOG Inject 0 (zero) Units to 15 (fifteen) Units under the skin at bedtime . * insulin lispro 100 unit/mL injection Commonly known as: HumaLOG Inject 0 (zero) Units to 30 (thirty) Units under the skin 3 (three) times a day before meals . melatonin 3 mg Tab Take 1 (one) tablet (3 mg total) by mouth nightly . senna-docusate 8.6-50 mg Commonly known as: SENNA-S Take 1 (one) tablet by mouth 2 (two) times a day . spironolactone 100 MG tablet Commonly known as: ALDACTONE Take 1 (one) tablet (100 mg total) by mouth daily Start: 10/27/19. Start taking on: October 27, 2019 * This list has 2 medication(s) that are the same as other medications prescribed for you. Read thedirections carefully, and ask your doctor or other care provider to review them with you. CONTINUE taking these medications ADVIL PM ORAL docusate sodium 100 MG capsule Commonly known as: COLACE ergocalciferol 1,250 mcg (50,000 unit) capsule Commonly known as: ERGOCALCIFEROL Where to Get Your Medications These [facility] [id number] [facility] [address] [address] [facility] [address] [place] [address] albuterol 2.5 mg /3 mL (0.083 %) nebulizer solution furosemide 40 MG tablet melatonin 3 mg Tab senna-docusate 8.6-50 mg spironolactone 100 MG tablet Information about where to get these medications is not yet available Ask your nurse or doctor about these medications insulin glargine 100 unit/mL injection insulin lispro 100 unit/mL injection insulin lispro 100 unit/mL injection Physician(s) Family: Physician No, Phone: None, Address: [facility] Follow Up: [place] Address: [address] [place] [address] Servicing Counties: N/a [phone] Delores Lopez MD [address] [facility] [phone] Call Call to schedule hospital follow up appointment for continued management of cirrhosis Additional Information: Patient seen and examined day of discharge. For more information regarding patient's care, including complete radiology reports, please contact [facility] at Patient instructions, including activity, were given to the patient/family at discharge. Please seethe After Visit Summary in the medical record for details. Time spent on discharge: > 30 minutes Completed by: Rivas Monsalve on 10/26/19, 9:45 AM documented in this encounter* Shari Ching APRN - AUTOMOBILE SERVICE STATION MANAGER - 07/07/2020 2:40 PM EDT Discharge Summary Hetal Jasso : 1955 Admit date: 07/04/2020 Discharge date: 07/07/2020 Admitting Physician: Maryjane Momin MD Discharge Diagnoses: Principal Problem: Acute cystitis without hematuria Active Problems: Alcoholic cirrhosis of liver with ascites (HCC) Chronic obstructive pulmonary disease (HCC) Diabetes mellitus (HCC) Other pancytopenia (HCC) Febrile illness Encephalopathy acute Resolved Problems: * No resolved hospital problems. * Hospital Course: Hetal Jasso is a 65 y.o. female admitted with cystitis with hematuria. She presented to the emergency room for assessment for altered mental status change. She currently resided in assisted living at [facility]. She does have a history of urinary tract infections in the past.She denied any cough or shortness of breath. Denied chest pains or palpitations. Did admit to fever. She was evaluated and admitted for UTI and placed on IV antibiotics as well as IV fluids. Urine culture grew E. coli and blood cultures were negative. Chest x- ray was negative. She does have a history of alcoholic cirrhosis with liver ascites. We will keep her on lactulose 20 g twice a day. She will continue with IV Rocephin for 7 more days. She will be discharged to [facility]. Consultants: none Procedures: none Complications: none Discharge Condition: fair Exam: GEN: alert and oriented to person, place and time, well-developed and well- nourished, in no acute distress EYES: No gross abnormalities., PERRL and EOMI NECK: normal, supple, no lymphadenopathy, no carotid bruits PULM: clear to auscultation bilaterally- no wheezes, rales or rhonchi, normal air movement, no respiratory distress COR: regular rate & rhythm, no murmurs, no gallops, S1 normal and S2 normal ABD: soft, non-tender, non-distended, normal bowel sounds, no masses or organomegaly EXT: no cyanosis, clubbing or edema present NEURO: follows commands, PEDERSEN, no deficits SKIN: no rashes or significant lesions Significant Diagnostic Studies: Lab Results Component Value Date WBC 2.4 (L) 07/07/2020 HGB 11.7 (L) 07/07/2020 PLT See Reflexed IPF Result 07/07/2020 Lab Results Component Value Date BUN 10 07/07/2020 CREATININE 0.33 (L) 07/07/2020 NA 136 07/07/2020 K 3.1 (L) 07/07/2020 CALCIUM 8.6 07/07/2020 CL 106 07/07/2020 CO2 24 07/07/2020 LABGLOM >60 07/07/2020 Lab Results Component Value Date WBCUA 0 TO 2 07/04/2020 RBCUA 2 TO 5 07/04/2020 EPITHUA 2 TO 5 07/04/2020 LEUKOCYTESUR NEGATIVE 07/04/2020 SPECGRAV 1.025 (H) 07/04/2020 GLUCOSEU NEGATIVE 07/04/2020 KETUA NEGATIVE 07/04/2020 PROTEINU NEGATIVE 07/04/2020 HGBUR TRACE (A) 07/04/2020 CASTUA NOT REPORTED 07/04/2020 CRYSTUA NOT REPORTED 07/04/2020 BACTERIA TRACE (A) 07/04/2020 YEAST NOT REPORTED 07/04/2020 Xr Chest Portable Result Date: 07/04/2020 EXAMINATION: ONE XRAY VIEW OF THE CHEST 07/04/2020 6:11 pm COMPARISON: None. HISTORY: ORDERING SYSTEMPROVIDED HISTORY: fever TECHNOLOGIST PROVIDED HISTORY: fever FINDINGS: A portable upright frontal view chest radiograph was obtained. The heart is enlarged. The mediastinal contour and pleural spacesare otherwise within normal limits. The lungs are mildly hyperinflated although grossly clear. There is no focal consolidation or pneumothorax. The pulmonary vascular pattern is within normal limits.No acute thoracic osseous abnormality. Clear lungs. Cardiomegaly. No acute cardiopulmonary abnormality. Assessment and Plan: Patient Active Problem List Diagnosis Date Noted Acute cystitis without hematuria 07/07/2020 Encephalopathy acute 07/07/2020 Febrile illness 07/04/2020 Alcoholic cirrhosis of liver with ascites (HCC) Difficulty walking Weakness Chronic obstructive pulmonary disease (HCC) Alcohol dependence in remission (HCC) Portal hypertension (HCC) Diabetes mellitus (HCC) Major depression Right heart failure, unspecified (HCC) Thrombocytopenia, unspecified (HCC) Other pancytopenia (HCC) Acquired coagulation factor deficiency (HCC) Constipation Insomnia Discharge Medications: Hetal Jasso Lamar Medication Instructions CECE:[id number] Printed on:07/07/20 1440 Medication Information acetaminophen (TYLENOL) 325 MG tablet Take 650 mg by mouth every 4 hours as needed for Pain b complex vitamins capsule Take 1 capsule by mouth daily cefTRIAXone (ROCEPHIN) infusion Infuse 1,000 mg intravenously every 24 hours for 7 days Compound per protocol Flush IV per protocol ergocalciferol (ERGOCALCIFEROL) 1.25 MG (67181 UT) capsule Take 50,000 Units by mouth once a week EVERY 5 DAYS furosemide (LASIX) 40 MG tablet Take 40 mg by mouth daily insulin glargine (LANTUS) 100 UNIT/ML injection vial Inject 26 Units into the skin nightly Insulin Lispro (HUMALOG KWIKPEN SC) Inject into the skin PER SLIDING SCALE 151-200=0 UNITS 201-250=10 UNITS 251- 300=12 UNITS 301-400=14 UNITS ABOVE 400 CALL lactulose (CHRONULAC) 10 GM/15ML solution Take 30 mLs by mouth 2 times daily melatonin 3 MG TABS tablet Take 3 mg by mouth nightly Multiple Vitamin (MULTIVITAMIN ADULT PO) Take 1 tablet by mouth daily PARoxetine (PAXIL) 10 MG tablet Take 20 mg by mouth every morning polyethylene glycol (GLYCOLAX) 17 GM/SCOOP powder Take 17 g by mouth daily as needed potassium chloride (KLOR-CON) 20 MEQ packet Take 20 mEq by mouth daily spironolactone (ALDACTONE) 25 MG tablet Take 25 mg by mouth daily vitamin D (CHOLECALCIFEROL) 125 MCG (5000 UT) CAPS capsule Take 1,000 Units by mouth daily Patient Instructions: Activity: activity as tolerated Diet: encourage fluids Wound Care: none needed Other: None Disposition: DC to [facility] ECF Follow up: Patient will be followed by Maryjane Momin MD in 1-2 weeks CORE MEASURES on Discharge (if applicable) ADALI/ARB in CHF: NA Statin in ID: NA ASA in ID: NA Statin in CVA: NA Antiplatelet in CVA: NA Total time spent on discharge services: 45 minutes Including the following activities: Evaluation and Management of patient Discussion with patient and/or surrogate about current care plan Coordination with Case Management and/or Occupancy Specialist Coordination of care with Consultants (if applicable) Coordination of care with Receiving Facility Physician (if applicable) Completion of DME forms (if applicable) Preparation of Discharge Summary Preparation of Medication Reconciliation Preparation of Discharge Prescriptions Signed: Shari Ching APRN, TABLE AND DESK FINISHER-C 07/07/2020, 2:40 PM Associated attestation - Maryjane Momin MD - 07/07/2020 3:59 PM EDT I personally evaluated and examined the patient face to face in conjunction with the APC and agree with the management and disposition of the patient. My tran findings are: Patient ID: Hetal Jasso [id number] Admission date: 07/04/2020 Discharge date: 07/07/2020 Admitting Physician: Maryjane Momin MD Primary Care Physician: Maryjane Momin MD Primary Discharge Diagnoses: Patient Active Problem List Diagnosis Date Noted Acute cystitis without hematuria 07/07/2020 Encephalopathy acute 07/07/2020 Febrile illness 07/04/2020 Alcoholic cirrhosis of liver with ascites (HCC) Difficulty walking Weakness Chronic obstructive pulmonary disease (HCC) Alcohol dependence in remission (HCC) Portal hypertension (HCC) Diabetes mellitus (HCC) Major depression Right heart failure, unspecified (HCC) Thrombocytopenia, unspecified (HCC) Other pancytopenia (HCC) Acquired coagulation factor deficiency (HCC) Constipation Insomnia Additional Diagnoses: Diagnosis Date Acquired coagulation factor deficiency (HCC) Alcohol dependence in remission (HCC) Alcoholic cirrhosis of liver with ascites (HCC) Chronic obstructive pulmonary disease (HCC) Constipation Diabetes mellitus (HCC) Difficulty walking Insomnia Major depression Other pancytopenia (HCC) Portal hypertension (HCC) Right heart failure, unspecified (HCC) Thrombocytopenia, unspecified (HCC) Weakness Review of Systems: Constitutional: negative for fevers or chills, has some confusion Eyes: negative for visual disturbance ENT: negative for sore throat or nasal congestion Respiratory: negative for shortness of breath or cough Cardiovascular: negative for chest pain ,palpitations,pnd,syncope Gastrointestinal: negative for abd pain, nausea, vomiting, diarrhea , constipation,hemetemesis,alma,blood in stool Genitourinary: negative for dysuria, urgency ,has frequency,neg for hematuria Integument/breast: negative for skin rash or lesions Neurological: negative for unilateral weakness, numbness or tingling. Skeletal Muscular: no joint pain,jont swelling,back pain Physical exam: Exam: GEN: awake, no apparent distress EYES: No gross abnormalities. NECK: normal, supple, no lymphadenopathy, no carotid bruits PULM: clear to auscultation bilaterally- no wheezes, rales or rhonchi, normal air movement, no respiratory distress COR: regular rate & rhythm and no gallops ABD: soft, non-tender, non-distended, normal bowel sounds, no masses or organomegaly EXT: no cyanosis, clubbing or edema present NEURO: negative SKIN: no rashes or significant lesions Hospital Course: The patient was admitted for the above. Hetal Jasso is a 65 y.o. female admitted with cystitis with hematuria. She presented to the emergency room for assessment for altered mental status change. She currently resided in assisted living at [facility]. She does have a history of urinary tract infections in the past. She denied any cough or shortness of breath. Denied chest pains or palpitations. Did admit to fever. She was evaluated and admitted for UTI and placed on IV antibiotics as well as IV fluids. Urine culture grew E. coli and blood cultures were negative. Chest x-ray was negative. She does have a history of alcoholic cirrhosis with liver ascites. We will keep her on lactulose 20 g twice a day. She will continue with IV Rocephin for 7 more days. She will be discharged to [facility].Her metabolic encephalopathy from uti improved with treatment of uti. Consultants: ID Procedures: none Complications: none Significant Diagnostic Studies: Us Liver Spleen Result Date: 07/06/2020 EXAMINATION: RIGHT UPPER QUADRANT ULTRASOUND 07/06/2020 7:16 am COMPARISON: None. HISTORY: ORDERING SYSTEM PROVIDED HISTORY: increase liver enzymes TECHNOLOGIST PROVIDED HISTORY: increase liver enzymesFINDINGS: LIVER: Cirrhotic liver with fatty infiltration. No focal mass or intrahepatic bile duct dilatation. Liver cysts versus ductal dilatation, partially visualized, largest measuring 1.4 cm. Hepatopetal flow seen within the portal vein. BILIARY SYSTEM: Cholelithiasis. Mild gallbladder wall thickening/edema. Negative Squires's sign. Common bile duct is prominent measuring 7 mm. RIGHT KIDNEY: The right kidney is grossly unremarkable without evidence of hydronephrosis. PANCREAS: Visualized portions of the pancreas are unremarkable. SPLEEN: Splenomegaly measuring 16.8 cm. No focal lesion. OTHER: No evidence of right upper quadrant ascites. 1. Cirrhotic liver with fatty infiltration. No solid hepatic mass visualized by ultrasound. 2. Liver cysts versus intrahepatic ductal dilatation, partially visualized. In addition, there appears to be cholelithiasis with mild gallbladder wall thickening/edema as well as prominence of the CBD. Further evaluation with HIDA scan and MRI/MRCP with and without IV contrast is suggested. Acute cholecystitis/choledocholithiasis cannot be excluded. 3. Splenomegaly. Xr Chest Portable Result Date: 07/04/2020 EXAMINATION: ONE XRAY VIEW OF THE CHEST 07/04/2020 6:11 pm COMPARISON: None. HISTORY: ORDERING SYSTEMPROVIDED HISTORY: fever TECHNOLOGIST PROVIDED HISTORY: fever FINDINGS: A portable upright frontal view chest radiograph was obtained. The heart is enlarged. The mediastinal contour and pleural spacesare otherwise within normal limits. The lungs are mildly hyperinflated although grossly clear. There is no focal consolidation or pneumothorax. The pulmonary vascular pattern is within normal limits.No acute thoracic osseous abnormality. Clear lungs. Cardiomegaly. No acute cardiopulmonary abnormality. Recent Results (from the past 96 hour(s)) CBC Auto Differential Collection Time: 07/04/20 5:35 PM Result Value Ref Range WBC 1.9 (L) 3.5 - 11.3 k/uL RBC 3.50 (L) 3.95 - 5.11 m/uL Hemoglobin 12.1 11.9 - 15.1 g/dL Hematocrit 35.0 (L) 36.3 - 47.1 % MCV 100.0 82.6 - 102.9 fL MCH 34.6 (H) 25.2 - 33.5 pg MCHC 34.6 28.4 - 34.8 g/dL RDW 13.1 11.8 - 14.4 % Platelets See Reflexed IPF Result 138 - 453 k/uL MPV NOT REPORTED 8.1 - 13.5 fL NRBC Automated 0.0 0.0 per 100 WBC Differential Type NOT REPORTED WBC Morphology NOT REPORTED RBC Morphology NOT REPORTED Platelet Estimate NOT REPORTED Seg Neutrophils 78 (H) 36 - 65 % Lymphocytes 16 (L) 24 - 43 % Monocytes 4 3 - 12 % Eosinophils % 2 1 - 4 % Immature Granulocytes 0 0 % Basophils 0 0 - 2 % Segs Absolute 1.48 (L) 1.50 - 8.10 k/uL Absolute Lymph # 0.30 (L) 1.10 - 3.70 k/uL Absolute [place] # 0.08 (L) 0.10 - 1.20 k/uL Absolute Eos # 0.04 0.00 - 0.44 k/uL Absolute Immature Granulocyte 0.00 0.00 - 0.30 k/uL Basophils Absolute 0.00 0.0 - 0.2 k/uL Morphology Platelet scan shows Decreased Platelets Comprehensive Metabolic Panel Collection Time: 07/04/20 5:35 PM Result Value Ref Range Glucose 159 (H) 70 - 99 mg/dL BUN 11 8 - 23 mg/dL CREATININE 0.44 (L) 0.50 - 0.90 mg/dL Bun/Cre Ratio 25 (H) 9 - 20 Calcium 9.0 8.6 - 10.4 mg/dL Sodium 136 135 - 144 mmol/L Potassium 3.9 3.7 - 5.3 mmol/L Chloride 102 98 - 107 mmol/L CO2 25 20 - 31 mmol/L Anion Gap 9 9 - 17 mmol/L Alkaline Phosphatase 119 (H) 35 - 104 U/L ALT 28 5 - 33 U/L AST 46 (H) <32 U/L Total Bilirubin 3.93 (H) 0.3 - 1.2 mg/dL Total Protein 5.4 (L) 6.4 - 8.3 g/dL Albumin 3.2 (L) 3.5 - 5.2 g/dL Albumin/Globulin Ratio 1.5 1.0 - 2.5 GFR Non- >60 >60 mL/min GFR >60 >60 mL/min GFR Comment GFR Staging Ammonia Collection Time: 07/04/20 5:35 PM Result Value Ref Range Ammonia 84 (H) 11 - 41 umol/L Lactic Acid, Plasma Collection Time: 07/04/20 5:35 PM Result Value Ref Range Lactic Acid 2.4 (H) 0.5 - 2.2 mmol/L Lactic Acid, Whole Blood NOT REPORTED 0.7 - 2.1 mmol/L Culture, Blood 1 Collection Time: 07/04/20 5:35 PM Specimen: Blood Result Value Ref Range Specimen Description .BLOOD Special Requests LFA 20MLS Culture NO GROWTH 3 DAYS Immature Platelet Fraction Collection Time: 07/04/20 5:35 PM Result Value Ref Range Platelet, Immature Fraction 6.4 1.1 - 10.3 % Platelet, Fluorescence 35 (L) 138 - 453 k/uL Culture, Blood 1 Collection Time: 07/04/20 5:55 PM Specimen: Blood Result Value Ref Range Specimen Description .BLOOD Special Requests 6 ML RFA Culture NO GROWTH 3 DAYS Urinalysis Reflex to Culture Collection Time: 07/04/20 6:20 PM Specimen: Urine, clean catch Result Value Ref Range Color, UA YELLOW YELLOW Turbidity UA CLEAR CLEAR Glucose, Ur NEGATIVE NEGATIVE Bilirubin Urine NEGATIVE NEGATIVE Ketones, Urine NEGATIVE NEGATIVE Specific [place], UA 1.025 (H) 1.010 - 1.020 Urine Hgb TRACE (A) NEGATIVE pH, UA 5.5 5.0 - 9.0 Protein, UA NEGATIVE NEGATIVE Urobilinogen, Urine Normal Normal Nitrite, Urine NEGATIVE NEGATIVE Leukocyte Esterase, Urine NEGATIVE NEGATIVE Urinalysis Comments NOT REPORTED Microscopic Urinalysis Collection Time: 07/04/20 6:20 PM Result Value Ref Range - WBC, UA 0 TO 2 0 - 5 /HPF RBC, UA 2 TO 5 0 - 2 /HPF Casts UA NOT REPORTED /LPF Crystals, UA NOT REPORTED None /HPF Epithelial Cells UA 2 TO 5 0 - 25 /HPF Renal Epithelial, UA NOT REPORTED 0 /HPF Bacteria, UA TRACE (A) None Mucus, UA 1+ (A) None Trichomonas, UA NOT REPORTED None Amorphous, UA NOT REPORTED None Other Observations UA NOT REPORTED NOT REQ. Yeast, UA NOT REPORTED None COVID-19, Rapid Collection Time: 07/04/20 6:23 PM Specimen: Nasopharyngeal Swab Result Value Ref Range Specimen Description .NASOPHARYNGEAL SWAB SARS-CoV-2, Rapid Not Detected Not Detected Glucose, Whole Blood Collection Time: 07/04/20 10:25 PM Result Value Ref Range POC Glucose 126 (H) 74 - 100 mg/dL Lactic Acid, Plasma Collection Time: 07/04/20 10:45 PM Result Value Ref Range Lactic Acid 1.7 0.5 - 2.2 mmol/L Lactic Acid, Whole Blood NOT REPORTED 0.7 - 2.1 mmol/L CBC Collection Time: 07/05/20 5:28 AM Result Value Ref Range WBC 1.0 (LL) 3.5 - 11.3 k/uL RBC 3.05 (L) 3.95 - 5.11 m/uL Hemoglobin 10.7 (L) 11.9 - 15.1 g/dL Hematocrit 31.6 (L) 36.3 - 47.1 % MCV 103.6 (H) 82.6 - 102.9 fL MCH 35.1 (H) 25.2 - 33.5 pg MCHC 33.9 28.4 - 34.8 g/dL RDW 13.5 11.8 - 14.4 % Platelets See Reflexed IPF Result 138 - 453 k/uL MPV NOT REPORTED 8.1 - 13.5 fL NRBC Automated 0.0 0.0 per 100 WBC Comprehensive Metabolic Panel w/ Reflex to MG Collection Time: 07/05/20 5:28 AM Result Value Ref Range Glucose 293 (H) 70 - 99 mg/dL BUN 11 8 - 23 mg/dL CREATININE 0.41 (L) 0.50 - 0.90 mg/dL Bun/Cre Ratio 27 (H) 9 - 20 Calcium 7.7 (L) 8.6 - 10.4 mg/dL Sodium 136 135 - 144 mmol/L Potassium 3.9 3.7 - 5.3 mmol/L Chloride 108 (H) 98 - 107 mmol/L CO2 22 20 - 31 mmol/L Anion Gap 6 (L) 9 - 17 mmol/L Alkaline Phosphatase 92 35 - 104 U/L ALT 22 5 - 33 U/L AST 37 (H) <32 U/L Total Bilirubin 3.20 (H) 0.3 - 1.2 mg/dL Total Protein 4.3 (L) 6.4 - 8.3 g/dL Albumin 2.5 (L) 3.5 - 5.2 g/dL Albumin/Globulin Ratio 1.4 1.0 - 2.5 GFR Non- >60 >60 mL/min GFR >60 >60 mL/min GFR Comment GFR Staging Immature Platelet Fraction Collection Time: 07/05/20 5:28 AM Result Value Ref Range Platelet, Immature Fraction 5.9 1.1 - 10.3 % Platelet, Fluorescence 29 (L) 138 - 453 k/uL Glucose, Whole Blood Collection Time: 07/05/20 7:11 AM Result Value Ref Range POC Glucose 284 (H) 74 - 100 mg/dL Glucose, Whole Blood Collection Time: 07/05/20 11:12 AM Result Value Ref Range POC Glucose 342 (H) 74 - 100 mg/dL Glucose, Whole Blood Collection Time: 07/05/20 3:59 PM Result Value Ref Range POC Glucose 321 (H) 74 - 100 mg/dL Glucose, Whole Blood Collection Time: 07/05/20 8:01 PM Result Value Ref Range POC Glucose 297 (H) 74 - 100 mg/dL Ammonia Collection Time: 07/06/20 5:15 AM Result Value Ref Range Ammonia 62 (H) 11 - 41 umol/L Procalcitonin Collection Time: 07/06/20 5:27 AM Result Value Ref Range Procalcitonin 0.06 <0.09 ng/mL Glucose, Whole Blood Collection Time: 07/06/20 7:28 AM Result Value Ref Range POC Glucose 167 (H) 74 - 100 mg/dL Glucose, Whole Blood Collection Time: 07/06/20 11:02 AM Result Value Ref Range POC Glucose 225 (H) 74 - 100 mg/dL Glucose, Whole Blood Collection Time: 07/06/20 3:58 PM Result Value Ref Range POC Glucose 171 (H) 74 - 100 mg/dL Glucose, Whole Blood Collection Time: 07/06/20 9:36 PM Result Value Ref Range POC Glucose 203 (H) 74 - 100 mg/dL Comprehensive Metabolic Panel w/ Reflex to MG Collection Time: 07/07/20 5:45 AM Result Value Ref Range Glucose 62 (L) 70 - 99 mg/dL BUN 10 8 - 23 mg/dL CREATININE 0.33 (L) 0.50 - 0.90 mg/dL Bun/Cre Ratio 30 (H) 9 - 20 Calcium 8.6 8.6 - 10.4 mg/dL Sodium 136 135 - 144 mmol/L Potassium 3.1 (L) 3.7 - 5.3 mmol/L Chloride 106 98 - 107 mmol/L CO2 24 20 - 31 mmol/L Anion Gap 6 (L) 9 - 17 mmol/L Alkaline Phosphatase 100 35 - 104 U/L ALT 31 5 - 33 U/L AST 51 (H) <32 U/L Total Bilirubin 2.00 (H) 0.3 - 1.2 mg/dL Total Protein 4.6 (L) 6.4 - 8.3 g/dL Albumin 2.7 (L) 3.5 - 5.2 g/dL Albumin/Globulin Ratio 1.4 1.0 - 2.5 GFR Non- >60 >60 mL/min GFR >60 >60 mL/min GFR Comment GFR Staging CBC Auto Differential Collection Time: 07/07/20 5:45 AM Result Value Ref Range WBC 2.4 (L) 3.5 - 11.3 k/uL RBC 3.37 (L) 3.95 - 5.11 m/uL Hemoglobin 11.7 (L) 11.9 - 15.1 g/dL Hematocrit 34.5 (L) 36.3 - 47.1 % MCV 102.4 82.6 - 102.9 fL MCH 34.7 (H) 25.2 - 33.5 pg MCHC 33.9 28.4 - 34.8 g/dL RDW 13.5 11.8 - 14.4 % Platelets See Reflexed IPF Result 138 - 453 k/uL MPV NOT REPORTED 8.1 - 13.5 fL NRBC Automated 0.0 0.0 per 100 WBC Differential Type NOT REPORTED WBC Morphology NOT REPORTED RBC Morphology NOT REPORTED Platelet Estimate NOT REPORTED Seg Neutrophils 58 36 - 65 % Lymphocytes 30 24 - 43 % Monocytes 12 3 - 12 % Eosinophils % 0 (L) 1 - 4 % Immature Granulocytes 0 0 % Basophils 0 0 - 2 % Segs Absolute 1.39 (L) 1.50 - 8.10 k/uL Absolute Lymph # 0.72 (L) 1.10 - 3.70 k/uL Absolute [place] # 0.29 0.10 - 1.20 k/uL Absolute Eos # 0.00 0.00 - 0.44 k/uL Absolute Immature Granulocyte 0.00 0.00 - 0.30 k/uL Basophils Absolute 0.00 0.0 - 0.2 k/uL Cells Counted 50 Morphology Normal Platelet scan shows Decreased Platelets Immature Platelet Fraction Collection Time: 07/07/20 5:45 AM Result Value Ref Range Platelet, Immature Fraction 8.1 1.1 - 10.3 % Platelet, Fluorescence 32 (L) 138 - 453 k/uL Magnesium Collection Time: 07/07/20 5:45 AM Result Value Ref Range Magnesium 1.5 (L) 1.6 - 2.6 mg/dL Glucose, Whole Blood Collection Time: 07/07/20 7:13 AM Result Value Ref Range POC Glucose 56 (L) 74 - 100 mg/dL Glucose, Whole Blood Collection Time: 07/07/20 7:40 AM Result Value Ref Range POC Glucose 79 74 - 100 mg/dL Glucose, Whole Blood Collection Time: 07/07/20 11:10 AM Result Value Ref Range POC Glucose 146 (H) 74 - 100 mg/dL Discharge Condition: stable Disposition: SNF Discharge Medications: Hetal Jasso Home Medication Instructions CECE:[id number] Printed on:07/07/20 4678 Medication Information acetaminophen (TYLENOL) 325 MG tablet Take 650 mg by mouth every 4 hours as needed for Pain b complex vitamins capsule Take 1 capsule by mouth daily cefTRIAXone (ROCEPHIN) infusion Infuse 1,000 mg intravenously every 24 hours for 7 days Compound per protocol Flush IV per protocol ergocalciferol (ERGOCALCIFEROL) 1.25 MG (25955 UT) capsule Take 50,000 Units by mouth once a week EVERY 5 DAYS furosemide (LASIX) 40 MG tablet Take 40 mg by mouth daily insulin glargine (LANTUS) 100 UNIT/ML injection vial Inject 26 Units into the skin nightly Insulin Lispro (HUMALOG KWIKPEN SC) Inject into the skin PER SLIDING SCALE 151-200=0 UNITS 201-250=10 UNITS 251- 300=12 UNITS 301-400=14 UNITS ABOVE 400 CALL lactulose (CHRONULAC) 10 GM/15ML solution Take 30 mLs by mouth 2 times daily melatonin 3 MG TABS tablet Take 3 mg by mouth nightly Multiple Vitamin (MULTIVITAMIN ADULT PO) Take 1 tablet by mouth daily PARoxetine (PAXIL) 10 MG tablet Take 20 mg by mouth every morning polyethylene glycol (GLYCOLAX) 17 GM/SCOOP powder Take 17 g by mouth daily as needed potassium chloride (KLOR-CON) 20 MEQ packet Take 20 mEq by mouth daily spironolactone (ALDACTONE) 25 MG tablet Take 25 mg by mouth daily vitamin D (CHOLECALCIFEROL) 125 MCG (5000 UT) CAPS capsule Take 1,000 Units by mouth daily Resume all home medications unless otherwise directed Add rocephin Stop taking Patient Instructions: Activity: activity as tolerated Diet: diabetic diet Wound Care: none needed Other: Follow up with Dr Maryjane Momin in 1 wk as directed Time Spent on discharge services is 45 minutes in the examination, evaluation, counseling and review of medications and discharge plan. Signed: Maryjane Momin M.D. 07/07/2020 3:56 PM I reviewed and agree with the findings and plan documented in her note . Maryjane Momin MD documented in this encounter Discharge Instructions * Discharge Instr - Care Coordination* Aruna Pace RN - 10/22/2019 11:16 AM EDT [facility] Dr. Niko Mccoy [address] [place] [address] Phone (Primary Care): [phone] Appointment scheduled for October 27Monday at 2pm Please bring photo ID, insurance card and list of medications. Please arrive 15 minutes before appt. * Attachments The following attachments cannot be sent through Care Everywhere. * Diabetes Diet Guidelines: General Info (German) * Diabetes Diet Meal Planning: General Info (German) * Diabetes: Insulin Pens: General Info (German) * Insulin Pen: How to Use: General Info (German) * Diabetes: Home Blood Glucose Test (German) documented in this encounter* Discharge Instr - ELLEN* Breanna Dorsey RN - 07/06/2020 4:07 PM EDT Continuity of Care Form Patient Name: Hetal Jasso : 1955 Admit date: 07/04/2020 Discharge date: 07/07/2020 Code Status Order: [id number] Advance Directives: Admitting Physician: Maryjane Momin MD PCP: Maryjaen Momin MD Discharging Nurse: Claudia SHAHID Discharging [facility] Unit/Room#: 0310/0310-01 Discharging Unit Emergency Contact: Extended Emergency Contact Information Primary Emergency Contact: none,none Relation: Other Preferred language: German Supervisor Pressing Department needed? No Secondary Emergency Contact: Jason Pereira Mobile Relation: Child Supervisor Pressing Department needed? No Past Surgical History: History reviewed. No pertinent surgical history. 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 Portal hypertension (HCC) K76.6 Diabetes mellitus (HCC) E11.9 Major depression F32.9 Right heart failure, unspecified (HCC) I50.810 Thrombocytopenia, unspecified (HCC) D69.6 Other pancytopenia (HCC) D61.818 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 Constipation K59.00 Insomnia G47.00 Febrile illness R50.9 Acute cystitis without hematuria N30.00 Isolation/Infection: Isolation No Isolation Patient Infection Status Infection Onset Added Last Indicated Last Indicated By Review Planned Expiration Resolved Resolved By None active Resolved COVID-19 Rule Out 07/04/20 07/04/20 07/04/20 COVID-19, Rapid (Ordered) 07/04/20 Rule-Out Test Resulted Nurse Assessment: Last Vital Signs: BP (!) 99/55 Pulse 83 Temp 99.7 F (37.6 C) (Temporal) Resp 16 Ht 5' 5 (1.651 m) Wt 119 lb (54 kg) SpO2 95% BMI 19.80 kg/m Last documented pain score (0-10 scale): Pain Level: 0 Last Weight: Wt Readings from Last 1 Encounters: 07/04/20 119 lb (54 kg) Mental Status: disoriented and alert IV Access: - None Nursing Mobility/ADLs: Walking Assisted Transfer Assisted Bathing Assisted Dressing Assisted Toileting Assisted Feeding Assisted Chin Strap Maker Assisted Med Delivery whole Wound Care Documentation and Therapy: Elimination: Continence: Bowel: Yes Bladder: Yes Urinary Catheter: None Colostomy/Ileostomy/Ileal Conduit: No Date of Last BM: 07/07/2020 Intake/Output Summary (Last 24 hours) at 07/07/2020 1119 Last data filed at 07/07/2020 0519 Gross per 24 hour Intake 200 ml Output 1150 ml Net -950 ml I/O last 3 completed shifts: In: 440 [P.O.:440] Out: 1350 [Urine:1350] Safety Concerns: History of Falls (last 30 days) and At Risk for Falls Impairments/Disabilities: None Nutrition Therapy: Current Nutrition Therapy: - Oral Diet: Carb Control 4 carbs/meal (1800kcals/day) Routes of Feeding: Oral Liquids: Thin Liquids Daily Fluid Restriction: no Last Modified Barium Swallow with Video (Video Swallowing Test): not done Treatments at the Time of Hospital Discharge: Respiratory Treatments: none Oxygen Therapy: is not on home oxygen therapy. Ventilator: - No ventilator support Rehab Therapies: Physical Therapy and Occupational Therapy Weight Bearing Status/Restrictions: No weight bearing restirctions Other Medical Equipment (for information only, NOT a DME order): Other Treatments: Patient's personal belongings (please select all that are sent with patient): Zain SHAHID SIGNATURE: Claudia SHAHIDKENNEL ASSISTANT/SOCIAL WORK SECTION Inpatient Status Date: 07/04/20 Readmission Risk Assessment Score: Readmission Risk Risk of Unplanned Readmission: 12 Discharging to Facility/ Agency Name: [facility] Address:[address] [place] [address] Dialysis Facility (if applicable) Name: Address: Dialysis Schedule: Phone: Fax: Vocational Instructor/Occupancy Specialist signature: PHYSICIAN SECTION Prognosis: Good Condition at Discharge: Stable Rehab Potential (if transferring to Rehab): Good Recommended Labs or Other Treatments After Discharge: Rocephin 1 gm IV x 7 days Physician Certification: I certify the above information and transfer of Hetal Jasso is necessary for the continuing treatment of the diagnosis listed and that she requires Alf Facility for greater 30 days. Update Admission H&P: No change in H&P PHYSICIAN SIGNATURE: documented in this encounter Chief Complaint and Reason for Visit Chief Complaint DM2 - [place] (nursin g home patient) Chief Complaint See order Reason for Visit Cirrhosis COPD (chronic obstructive pulmonary disease) COVID-19 Diabetes mellitus, type 2 [id number] Encephalopathy due to COVID-19 virus Fall from ground level Fracture of proximal end of left femur Hemochromatosis Hyponatremia Pancytopenia Severe protein-calorie malnutrition Chief Complaint See order S72.142D Hemachromatosis Reason for Visit Cirrhosis COPD (chronic obstructive pulmonary disease) COVID-19 Diabetes mellitus, type 2 [id number] Encephalopathy due to COVID-19 virus Fall from ground level Fracture of proximal end of left femur Hemochromatosis Hyponatremia Pancytopenia Severe protein-calorie malnutrition Cirrhosis Hemochromatosis Chief Complaint Hemachromatosis Reason for Visit Cirrhosis Hemochromatosis Chief Complaint * A telephone visit (audio only) between the patient (at the originating site) and the provider (at the distant site) was utilized to provide this telehealth service. * alcohol associated CIRRHOSIS Additional Source Comments Reason for Visit (unrecogniz ed section and content) Reason Comments Other Reason Comments Labs Only Reason Comments Urinary Frequency Status Reason Specialty Diagnoses / Procedures Referred By Contact Referred To Contact Closed Heart and Vascul ar Diagnostics Diagnoses Pain and swelling of right upper extremity Procedures Venous Duplex Upper Extremity - unilateral MastersTiffanie PA [address] [facility] [address] [place] [id number] [facility] [address] [place] [id number] Reason Comments Leg Swelling bilat leg swelling f or about at week, has been elevating her legs at night, relates gaining about 10 pounds Reason Comments Leg Swelling Shortness of Breath Status Reason Specialty Diagnoses / Procedures Referre d By Contact Referred To Contact Diagnoses Neutropenia, unspecified type (HCC) Reason Comments Medication Refill Reason Comments Fall Fever Status Reason Specialty Diagnoses / Procedures Referre d By Contact Referred To Contact Diagnoses Febrile illness Wilber Riley MD [address] [facility], [place] [address] [facility] Reason Comments Knee Pain Left knee pain. Fell while reaching for walker. Did not hit head and no LOC. No neck pain. Specialty Diagnoses / Procedures Referred By Contac t Referred To Contact Diagnoses Closed fracture of left tibial plateau, initial encounter Tibial plateau fracture, left, closed, initial encounter [facility] [address] [place] [id number] [facility] [id number] [place] [address] Referral ID Status Reason Start Date Expiration Date Visits Re quested Visits Authorized [id number] 1 1 INFORMATION SOURCE (unrecogn ized section and content) DATE CREATED AUTHOR 06/27/2019 [facility] DATE CREATED AUTHOR AUTHOR'S ORGANIZ ATION 10/25/2019 [facility] nt Care DATE CREATED AUTHOR AUTHOR'S ORGANIZ ATION 11/20/2019 [facility] DATE CREATED AUTHOR AUTHOR'S ORGANIZ ATION 12/19/2019 [facility] DATE CREATED AUTHOR AUTHOR'S ORGANIZ ATION 12/26/2019 [facility] DATE CREATED AUTHOR AUTHOR'S ORGANIZ ATION 01/04/2022 [facility] DATE CREATED AUTHOR AUTHOR'S ORGANIZ ATION 07/12/2022 [facility] DATE CREATED AUTHOR AUTHOR'S ORGANIZ ATION 11/05/2022 [facility] DATE CREATED AUTHOR AUTHOR'S ORGANIZ ATION 02/09/2023 [facility] Breanna Lassiter RN - 10/18/2019 1:01 AM Breanna Reed RN - 10/17/2019 9:11 PM EDTJalil Aragon MD - 10/17/2019 7:24 PM Lesvia Aburto MD - 10/17/2019 3:10 PM EDT ED Notes (unrecognized secti on and content) Resting in bed.Pt is aware that we are waiting on med[facility] for transfer to [facility].Denies any needs at this time. Ambulated without assist to bedside commode.Pt states she gets short of breath with ambulation but feels better after lying down.Denies any other needs or pain at this time. [facility] Attending Note (remainder of ED course): Hetal Ramesh Richardpps was signed out to me by Dr. Salcido. Please refer to his/her initial documentation for details of the patient's initial ED history, physical exam, etc. In brief, Hetal presented for Leg Swelling and Shortness of Breath. Patient had routine orthopedics follow-up appointment today and mentioned her symptoms. Was sent over for work-up, which revealed several profound abnormalities on her labs, including leukopenia, severe thrombocytosis, and elevated bilirubin levels. Also had significantly elevated blood glucose levels, does not endorse a history of diabetes. The patient's preference is [facility] for further evaluation and treatment. A transfer request has been put in to [facility] at time of signout, awaiting acceptance. Diagnostics: Labs Reviewed BASIC METABOLIC PANEL - Abnormal; Notable for the following components: Result Value Sodium 134 (*) Potassium 3.1 (*) Chloride 97 (*) Glucose 452 (*) BUN 5 (*) Creatinine 0.53 (*) BUN/Creatinine Ratio 9.4 (*) Calcium 8.3 (*) All other components within normal limits Narrative: The eGFR should be used for monitoring renal function only and not for medication dosing. HEPATIC FUNCTION PANEL - Abnormal; Notable for the following components: Total Protein 5.4 (*) Albumin 2.4 (*) Total Bilirubin 5.6 (*) Bilirubin, Direct 2.7 (*) Alkaline Phosphatase 241 (*) AST 50 (*) All other components within normal limits PT/INR - Abnormal; Notable for the following components: Protime (PT) 20.1 (*) INR 1.8 (*) All other components within normal limits Narrative: During the induction phase of oral anticoagulation, the INR may not reflect the anticoagulation status of the patient. Therapeutic ranges for INR's are: Most clinical situations: INR 2.0-3.0 Mechanical Prosthetic Valve: INR 2.5-3.5 Critical: INR >5.0 URINALYSIS - Abnormal; Notable for the following components: Specific [place] 1.036 (*) Glucose, Urine >=500 (*) Urobilinogen, Urine >=4.0 (*) Bacteria, Urine Rare (*) All other components within normal limits Narrative: Microscopic examination is performed on all urinalysis samples and only positive findings are reported. The test for blood on the chemical analytic portion of urinalysis may also be positive due to hemoglobinuria and myoglobinuria and if red blood cells are present they are quantified by microscopic examination. HEMOGLOBIN A1C - Abnormal; Notable for the following components: Hemoglobin A1C 9.6 (*) Estimated Average Glucose 229 (*) All other components within normal limits Narrative: Normal: 4.0% - 5.6% Increased risk for diabetes: 5.7% - 6.4% Diabetes: >= 6.5% Pediatrics: No established reference range Estimated average glucose: 68-114 mg/dL CBC WITH AUTO DIFFERENTIAL - Abnormal; Notable for the following components: WBC 1.97 (*) RBC 3.66 (*) MCV 105.5 (*) MCH 35.8 (*) Platelets 30 (*) RDW - CV 15.7 (*) MPV 12.6 (*) Neutrophils Abs 0.97 (*) Lymphocytes Abs 0.71 (*) Monocytes Abs 0.24 (*) All other components within normal limits COVID-19, MOLECULAR - Normal NT PRO BNP - Normal Narrative: Pride Study Cut-offs Rule In: < /= 50 Years >450 pg/mL 51 Years - 75 Years >900 pg/mL 76 Years - 99 Years >1800 pg/mL Rule Out: All patients <300 pg/mL URINE AEROBIC CULTURE CBC AND DIFFERENTIAL Narrative: The following orders were created for panel order CBC w/ Diff. Procedure Abnormality Status --------- ------ CBC Auto Differential[[id number]] Abnormal Final result Please view results for these tests on the individual orders. TROPONIN CT Pulmonary Arteries Final Result 1. Significant image degradation secondary to respiratory motion artifact. There is no evidence of pulmonary arterial embolism to the subsegmental branches. 2. Fcscthcx-cf-nairf left and cmrla-gx-xzflwkah right pleural effusions are present. Associated compressive atelectasis is present involving the bilateral lower lobes. 3. Enlargement central pulmonary arterial vasculature indicating underlying pulmonary arterial hypertension. 4. Mild emphysema. 5. Cirrhotic morphology of the liver. Splenomegaly is noted. Partial inclusion of hepatic cysts. Cholelithiasis. 6. Moderate volume of ascites. JAMAAL/[facility] Workstation ID: [id number] XR Chest 1 View Final Result Small, left greater than right, pleural effusions. Patchy parenchymal opacity involving the lower lungs, left greater than right most likely reflecting atelectasis. Pneumonia and/or aspiration not excluded. Pulmonary hyperinflation compatible with COPD. [employer] Workstation ID: [id number] ED Progress: ED Course as of Oct 18 703u Oct 17, [id number] Transfer center reports that the patient is been accepted at [facility], awaiting bed assignment at this time. [BD] MonOct 18, 2019 07 Patient is remained stable overnight. Has long since been accepted at [facility], but due to inadequate local transport resources has had a protracted wait for transport. Patient does have a transfer time for later this morning. The dayshift attending will be available if needed prior to transport. [BD] ED Course User Index [BD] Jalil Aragon MD Clinical Impression: 1. Neutropenia, unspecified type (HCC) 2. Thrombocytopenia (HCC) 3. Dyspnea, unspecified type 4. Hypoxia 5. Hyperglycemia 6. Abnormal LFTs 7. Pedal edema 8. Other ascites 9. Bilateral pleural effusion Disposition: Patient is being transfered to [facility]. Jalil Aragon MD ED Attending Physician [facility] (Please note that portions of this note may have been completed with a voice recognition program. Efforts were made to edit the dictations but occasionally words are mis-transcribed.) Jalil Aragon MD 10/18/19704 Associated Order(s): EKG 12-lead ED PROVIDER NOTE [facility] NAME: Hetal Jasso AGE: 64 y.o. : 1955 VISIT DATE: 10/17/2019 CSN: [id number] PCP: Physician No Chief Complaint Patient presents with Leg Swelling Shortness of Breath HPI 64-year-old female presents emergency department with shortness of breath and leg swelling. The patient reports that she has been having swelling of both of her legs for about a week now. She said the first couple days that she noticed that she would elevate her legs higher than her heart and the swelling would go down. For the last several days that has not improved it. She reports that the swelling is slightly more in the left than in the right, but that is because she has had a previous left ankle fracture and it always is slightly swollen. Patient also notes some shortness of breath with dyspnea on exertion and orthopnea over the last week or more. Patient denies any chest pain, nausea, vomiting or urinary symptoms. Patient reports that about 4 months ago she broke her right shoulder. She has had persistent right hand swelling ever since that injury. That is unchanged. Patient had an appointment with her orthopedist today in follow-up of the shoulder injury and mentioned the leg swelling and shortness of breath and so was encouraged to come to the emergency department for evaluation patient reports that she did call her family doctor's office earlier in the week and has made an appointment for 6 days from now. Patient denies ever having swelling like this before. Patient further reports that she has had multiple prescription medications in the past but is not presently taking any of them. History reviewed. No pertinent past medical history. Past Surgical History: Procedure Laterality Date ANKLE SURGERY History reviewed. No pertinent family history. Social History Socioeconomic History Marital status: Spouse name: Not on file Number of children: Not on file Years of education: Not on file Highest education level: Not on file Occupational History Not on file Social Needs Financial resource strain: Not on file Food insecurity Worry: Not on file Inability: Not on file Transportation needs Medical: Not on file Non-medical: Not on file Tobacco Use Smoking status: Current Every Day Smoker Packs/day: 0.25 Types: Cigarettes Smokeless tobacco: Never Used Substance and Sexual Activity Alcohol use: Yes Comment: occasionally Drug use: Never Sexual activity: Not on file Lifestyle Physical activity Days per week: Not on file Minutes per session: Not on file Stress: Not on file Relationships Social connections Talks on phone: Not on file Gets together: Not on file Attends baptist service: Not on file Active member of club or organization: Not on file Attends meetings of clubs or organizations: Not on file Relationship status: Not on file Other Topics Concern Not on file Social History Narrative Not on file Previous Medications Medication Sig docusate sodium (COLACE) 100 MG capsule Take 100 mg by mouth 2 (two) times a day . ergocalciferol (ERGOCALCIFEROL) 1,250 mcg (50,000 unit) capsule Take 50,000 Units by mouth Every 5 days . ibuprofen/diphenhydramine cit (ADVIL PM ORAL) Take by mouth . Allergies Allergen Reactions Bupropion Other (See Comments) I just don't like it . Review of Systems Constitutional: Negative. HENT: Negative. Eyes: Negative. Respiratory: Positive for shortness of breath. Negative for cough and chest tightness. Cardiovascular: Positive for leg swelling. Negative for chest pain and palpitations. Gastrointestinal: Negative. Genitourinary: Negative. Musculoskeletal: Positive for arthralgias. Skin: Negative. Neurological: Negative. Hematological: Negative. Psychiatric/Behavioral: Negative. Patient reports shortness of breath, dyspnea on exertion, orthopnea, bilateral foot and ankle swelling left slightly greater than right. Patient reports prior left ankle fracture and that that ankle is more swollen than the other on baseline. Patient reports persistent right hand swelling since a shoulder injury 4 months ago. Patient Vitals for the past 24 hrs: BP Temp Temp src Pulse Resp SpO2 Height Weight 10/17/19 1717 130/78 (!) 100 18 96 % 10/17/19 1552 128/80 (!) 106 18 94 % 10/17/19 1520 95 % 10/17/19 1504 129/83 98 F (36.7 C) Oral (!) 108 18 (!) 88 % 5' 5 58.1 kg (128 lb) Physical Exam Vitals signs and nursing note reviewed. Constitutional: Appearance: She is well-developed and normal weight. HENT: Head: Normocephalic and atraumatic. Eyes: Extraocular Movements: Extraocular movements intact. Pupils: Pupils are equal, round, and reactive to light. Neck: Musculoskeletal: Normal range of motion and neck supple. Cardiovascular: Rate and Rhythm: Regular rhythm. Tachycardia present. Pulmonary: Effort: Pulmonary effort is normal. Breath sounds: Normal breath sounds. Chest: Chest wall: No mass, deformity, tenderness or crepitus. Abdominal: Palpations: Abdomen is soft. Tenderness: There is no abdominal tenderness. Musculoskeletal: Right lower leg: She exhibits no tenderness. Edema present. Left lower leg: She exhibits no tenderness. Edema present. Skin: General: Skin is warm and dry. Capillary Refill: Capillary refill takes 2 to 3 seconds. Neurological: General: No focal deficit present. Mental Status: She is alert and oriented to person, place, and time. Psychiatric: Mood and Affect: Mood normal. Behavior: Behavior normal. Patient has pitting edema of both lower extremities from the mid quiros down. Left slightly more prominent than the right. Patient also has nonpitting edema of the right hand. She states this is chronic since her shoulder injury. Lungs are clear on examination. Patient is mildly tachycardic. Patient ambulated to the bathroom and her pulse ox decreased to 86% on room air. Patient was placed on 2 L nasal cannula oxygen. She is presently satting 95% on the 2 L nasal cannula. Laboratory & Radiographic Imaging (if done): Results for orders placed or performed during the hospital encounter of 10/17/19 COVID-19, Molecular Result Value Ref Range SARS-CoV-2 Not Detected Not Detected BMP Result Value Ref Range Sodium 134 (L) 135 - 145 mmol/L Potassium 3.1 (L) 3.5 - 5.1 mmol/L Chloride 97 (L) 98 - 108 mmol/L Bicarbonate 25 21 - 32 mmol/L Anion Gap 15 10 - 20 mmol/L Glucose 452 (CH) 65 - 99 mg/dL BUN 5 (L) 8 - 25 mg/dL Creatinine 0.53 (L) 0.60 - 1.20 mg/dL eGFR 99 >=60 mL/min/1.73 m2 BUN/Creatinine Ratio 9.4 (L) 10.0 - 20.0 Calcium 8.3 (L) 8.4 - 10.2 mg/dL NT Pro BNP Result Value Ref Range NT-Pro BNP 204 0 - 300 pg/mL Hepatic Function Panel (LFT) Result Value Ref Range Total Protein 5.4 (L) 6.0 - 8.0 g/dL Albumin 2.4 (L) 3.2 - 5.2 g/dL Total Bilirubin 5.6 (H) 0.0 - 1.3 mg/dL Bilirubin, Direct 2.7 (H) 0.0 - 0.4 mg/dL Alkaline Phosphatase 241 (H) 40 - 150 U/L AST 50 (H) 0 - 45 U/L ALT 30 14 - 65 U/L PT/INR Result Value Ref Range Protime (PT) 20.1 (H) 11.8 - 14.3 seconds INR 1.8 (H) 0.8 - 1.1 Troponin Result Value Ref Range Troponin I 17 <=45 ng/L Troponin I Interpretation Normal Urinalysis Result Value Ref Range Color, Urine Yellow Colorless, Yellow Clarity, Urine Clear Clear Specific [place] 1.036 (H) 1.005 - 1.025 pH, Urine 6.0 5.0 - 7.0 Protein, Urine Negative Negative mg/dL Glucose, Urine >=500 (A) Negative mg/dL Ketones, Urine Negative Negative mg/dL Bilirubin, Urine Negative Negative Urobilinogen, Urine >=4.0 (A) <2.0 mg/dL Blood, Urine Negative Negative Nitrite, Urine Negative Negative Leukocyte Esterase, Urine Negative Negative WBCs, Urine 1 0 - 5 /hpf RBCs, Urine 1 0 - 3 /hpf Bacteria, Urine Rare (A) None Seen /hpf Squamous Epithelial <1 0 - 4 /hpf Mucus, Urine Rare None Seen, Rare /lpf Gold Top Result Value Ref Range Extra Tube Hold for add-ons. CBC Auto Differential Result Value Ref Range WBC 1.97 (L) 4.50 - 11.00 K/mcL RBC 3.66 (L) 4.00 - 5.20 M/mcL Hemoglobin 13.1 12.0 - 16.0 g/dL Hematocrit 38.6 36.0 - 46.0 % MCV 105.5 (H) 80.0 - 100.0 fL MCH 35.8 (H) 26.0 - 34.0 pg MCHC 33.9 31.0 - 37.0 g/dL Platelets 30 (CL) 150 - 400 K/mcL RDW - CV 15.7 (H) 11.6 - 14.8 % MPV 12.6 (H) 9.4 - 12.4 fL Neutrophils 49.3 % Lymphocytes 36.0 % Monocytes 12.2 % Eosinophils 1.5 % Basophils 0.5 % IG Percent 0.50 % Neutrophils Abs 0.97 (L) 1.70 - 7.00 K/mcL Lymphocytes Abs 0.71 (L) 0.90 - 4.00 K/mcL Monocytes Abs 0.24 (L) 0.30 - 0.90 K/mcL Eosinophils Abs 0.03 0.00 - 0.50 K/mcL Basophils Abs 0.01 0.00 - 0.30 K/mcL IG Absolute 0.01 0.00 - 0.30 K/mcL Nucleated RBC 0.0 % Nucleated RBC Abs 0.00 0.00 - 0.00 K/mcL CT Pulmonary Arteries Final Result 1. Significant image degradation secondary to respiratory motion artifact. There is no evidence of pulmonary arterial embolism to the subsegmental branches. 2. Adsecqum-ux-zvmls left and nfuka-ig-claajwms right pleural effusions are present. Associated compressive atelectasis is present involving the bilateral lower lobes. 3. Enlargement central pulmonary arterial vasculature indicating underlying pulmonary arterial hypertension. 4. Mild emphysema. 5. Cirrhotic morphology of the liver. Splenomegaly is noted. Partial inclusion of hepatic cysts. Cholelithiasis. 6. Moderate volume of ascites. TJ[facility] Workstation ID: [id number] XR Chest 1 View Final Result Small, left greater than right, pleural effusions. Patchy parenchymal opacity involving the lower lungs, left greater than right most likely reflecting atelectasis. Pneumonia and/or aspiration not excluded. Pulmonary hyperinflation compatible with COPD. [employer] Workstation ID: [id number] EKG 12-lead Date/Time: 10/17/2019 5:04 PM Performed by: Lesvia Salcido MD Authorized by: Shruthi Renner CNP Interpreted by ED attending physician Comparison: not compared with previous ECG Previous ECG: no previous ECG available Rhythm: sinus rhythm BPM: 104 Conduction: conduction normal ST Segments: ST segments normal T Waves: T waves normal Other: no other findings Clinical impression: normal ECG Comments: Sinus tachycardia, and otherwise normal EKG MDM 64-year-old female sent to the ER by the orthopedist after she mentioned leg swelling and shortness of breath when she was at a follow-up appointment for shoulder injury. Patient is having mild swelling and some dyspnea on exertion. In the emergency department the patient is mildly tachycardic, hypoxic with exertion having a pulse ox of 86% after walking to the bathroom. Patient has been put on 2 L nasal cannula oxygen. Patient is additionally showing neutropenia, thrombocytopenia, abnormal liver function tests, hyperglycemia. Patient denies prior history of diabetes. Patient will need to be admitted to the hospital. Question is whether she is appropriate for admission here or will need higher level of care. I spoke with the hospitalist who would like to see a PE study before making that decision. CTA of the pulmonary arteries has been ordered. CT does not show pulmonary embolism. However it does show ascites with suggestion of cirrhosis and bilateral pleural effusions. Therefore I rediscussed the case with the hospitalist who feels that the patient should be transferred to a facility with hepatology and interventional radiology. Therefore request will be made for transfer to an [facility] in [place]. Patient prefers [facility]. I do not know if they have hepatology and interventional radiology therefore request will be placed and we will speak with the transfer center. Patient will be signed out to the overnight physician at 7 PM at the end of my shift pending acceptance at the transfer facility and transportation arrangements. Clinical Impression: 1. Neutropenia, unspecified type (HCC) 2. Thrombocytopenia (HCC) 3. Dyspnea, unspecified type 4. Hypoxia 5. Hyperglycemia 6. Abnormal LFTs 7. Pedal edema ED Disposition None Follow-up Information Follow-up information has not been specified. Contact information for after-discharge care Follow-up information has not been specified. Lesvia Salcido MD 10/17/19 1828 Bed: 08 Expected date: Expected time: Means of arrival: Comments: [facility] AFTER TRIAGE Pt c/o BLE swelling and increased SOB x 7 days. documented in this encounter Patient transported to [facility] by [place] [address]. Receiving unit notified of patient's ETA. Vital signs: BP 102/66, HR 90 NSR, RR 16, Pulse Ox 96% on 2 L. Chief complaint of Edema. Patient does have patent IV access. Patient was on monitoring engineer during transport. Patient will be transported to room 9005 on arrival. A/o. Pain free. Transfer from [facility]. documented in this encounter Yoandy Fisher MD - 10/23/2019 9:56 AM EDTSumit Escamilla CNP - 10/22/2019 12:51 PM EDTCStefanie hansen MD - 10/18/2019 9:38 PM EDT H&P Notes (unrecognized sect ion and content) INTERVAL HISTORY AND PHYSICAL Patient Name: Hetal Jasso Admit Date: MR #: [id number] : 1955 The H&P has been reviewed and the patient has been examined. I concur with the findings of the H&P. There are no significant changes. It is appropriate to proceed with the planned procedure. Yoandy Fisher MD 10/23/2019 9:56 AM GASTROENTEROLOGY DAILY PROGRESS NOTE 2 Patient Name: Hetal Jasso MR #: [id number] Assessment/Plan: Decompensated hepatic cirrhosis (HCC) Assessment & Plan 64 year old female PMHx alcohol abuse, cirrhosis (diagnosed 10yrs ago), COPD who presented to [facility] with LE swelling and SOB. Found to have cirrhosis with ascites, b/l pleural effusions, and multiple lab abnormalities. Transferred to [facility] and GI consulted for further evaluation of decompensated cirrhosis. Reports sobriety x 4 years. -decompensated ETOH cirrhosis w/ thrombocytopenia and ascites -MELD-NA: 22 -Viral / AIH negative. No e/o iron / copper overload. -s/p paracentesis (10/17): 350 ml removed, no SBP. High SAAG, low protein c/w pHTN -MRI/MRCP (10/19): multiple communicating intra- and intrahepatic ductal cysts to include the suspicious lesion in the left hepatic lobe; type 4 biliary cyst; cirrhosis w/o arterially enhancing lesion; small ascites; moderate left and R pleural effusion -AFP: normal -INR 1.9 -on Aldactone 100 mg daily and Lasix 40mg IV daily -electrolytes and renal function stable -CTPA (OL): neg PE; moderate b/l pleural effusions L>R, e/o pulmonary HTN, cirrhosis w splenomegaly, moderate ascites, and hepatic cysts -RUQ U/S with 1 cm hypoechoic lesion and PV thrombus Plans: -Continue diuretics at current dose. CMP daily, 2 gram NA diet. No SBP, can complete 5 day course and discontinue; Cipro 500 mg BID p.o. ok. EGD in a.m. (10/22) for EV screening. Her INR is 1.9 therefore no plans to band with this abnormality. She is s/p vitamin K challenge. NPO at NE. Will arrange op follow up for cirrhosis management. Likely discharge soon otherwise. Chief Complaint: Cirrhosis Subjective: Perpetual Assessment: Hetal Jasso is a 64 y.o. y/o female with no e/o GI bleeding, HE, or recurrent ascites. No fevers. Tolerating diet. Review of Systems: Three systems were reviewed and negative except for those as specified in the history of present illness Labs: Results from last 7 days Lab Units 10/22/19 0437 10/21/19 0602 10/19/19 0406 WBC K/mcL 1.61* 1.46* 1.83* HGB g/dL 11.5* 11.2* 11.0* HCT % 35.1* 32.8* 33.3* PLT K/mcL 31* 29* 29* Results from last 7 days Lab Units 10/22/19 0437 10/21/19 0602 10/19/19 0406 SODIUM mmol/L 136 135 136 POTASSIUM mmol/L 3.6 3.6 3.7 CHLORIDE mmol/L 96* 97* 99 BUN mg/dL 10 10 9 CREATININE mg/dL 0.31* <0.20* <0.20* CALCIUM mg/dL 8.5 8.3* 8.3* TOTAL PROTEIN g/dL 4.2* 4.0* 4.2* BILIRUBIN TOTAL mg/dL 3.7* 3.8* 5.5* ALK PHOS U/L 153* 150 161* ALT U/L 21 19 19 AST U/L 39 37 33 GLUCOSE mg/dL 171* 243* 348* Physical Examination: Temp: [97.7 F (36.5 C)-98.3 F (36.8 C)] 98.3 F (36.8 C) Heart Rate: [82-89] 85 Resp: [12-16] 14 BP: (90-100)/(47-64) 99/58 CONSTITUTIONAL: Awake, NAD ABDOMEN:Roud, softly distended, non-tender. SKIN: No jaundice Results/Medications Reviewed 10/22/19 12:51 PM: Laboratory, Radiology, Medications and Transcriptions DELROY BarreraC [facility] [phone] (for staff use only) Vascular & Interventional Radiology Provided By [facility] (Diagnostic Radiology, Interventional and Neurointerventional Radiology and Vascular Medicine) Interventional Radiology Department @ [facility]: [phone] 24/10 VIR physician contact: ([phone]) Weekday VIR nurse practitioner contact @ [facility]: [phone] [facility]: [phone] [email or web address] [facility] TRANSPORT TANK TECHNICIAN DIRECTORY HISTORY AND PHYSICAL Patient Name: Hetal Jasso Admit Date: MR #: [id number] : 1955 Physicians: Physician No (Family); Lesvia Salcido* (Referring) Chief Complaint/Reason for Visit: Decompensated alcoholic cirrhosis and ascites History: Past Medical History: Diagnosis Date Alcohol abuse in remission Arthritis Asthma Chronic leukopenia Cirrhosis (HCC) alcoholic diagnosed 10 years ago, no prior EGD COPD (chronic obstructive pulmonary disease) (HCC) History of transfusion not sure pt states Thrombocytopenia (HCC) Past Surgical History: Procedure Laterality Date ABDOMINAL SURGERY ex lap, and cyst removal ANKLE SURGERY CARDIAC SURGERY 2 cardiac caths at the age of 17 at [facility] FRACTURE SURGERY left ankle/ plates and screws HYSTERECTOMY SKIN BIOPSY Allergy Information: I have reviewed the patient's allergies. Bupropion Home Medications: Outpatient Medications as of 10/18/2019 Medication Sig ergocalciferol (ERGOCALCIFEROL) 1,250 mcg (50,000 unit) capsule Take 50,000 Units by mouth Every 5 days . Physical Examination: Pertinent examination was performed including the following: CV: Pulse is regular with regular rate. Lungs: No respiratory distress. No accessory muscle use. No audible wheeze. ASA: 3 - Patient with severe systemic disease Mallampati: II (hard and soft palate, upper portion of tonsils anduvula visible) Laboratory and Additional Data Reviewed: Laboratory 10/18/19 9:39 PM Radiology 10/18/19 9:39 PM Medications 10/18/19 9:39 PM Transcriptions 10/18/19 9:39 PM Sedation Plan: None Assessment and Plan: Proceed with ultrasound guided paracentesis, as requested by Lesvia Salcido* [employer] History and Physical Note 10/18/19 Hetal Jasso 1955 [id number] Assessment/Plan: Hetal Jasso is a 64 y.o. female with a history of alcoholic cirrhosis diagnosed in 2009, alcohol abuse in remission, COPD, arthritis who presented to [facility] on 10/17/19 with 7 days of peripheral swelling and dyspnea. CT PA found no PE but noted mod-large left and small-mod right pleural effusions, pulmonary HTN, cirrhotic changes and moderate ascites. Na 134, K 3.1, BG 452, Dbili 2.7, Tbili 5.6, Alk Phos 241, WBC 1.97, Plt 30, INR 1.8, A1c 9.6. Transferred to [facility] 10/18/2019 for GI consult and further care. 1. Decompensated alcoholic cirrhosis: pt endorses being diagnosis with cirrhosis in 2009, stopped drinking alcohol in 2015. Has chronic leukopenia and thrombocytopenia per EMR as below. No prior screening EGD or evaluation by GI per pt. [facility] Dbili 2.7, Tbili 5.6, Alk Phos 241, WBC 1.97, Plt 30, INR 1.8. OL CT PA noted moderate ascites but exam reveals minimal abdominal distension. No signs of peritonitis. Started IV Lasix daily, PO Aldactone, consulted GI and IR for diagnostic paracentesis. 2. Bilateral pleural effusions: [facility] CT PA found mod-large left and small-mod right pleural effusions, BNP 204. Likely secondary to above but possible cardiac component. TTE 10/18/19 found EF 60%, mild diastolic dysfunction. Started IV Lasix as above. 3. Acute hypoxic respiratory failure: secondary to pleural effusions, volume overload. Requiring 2L oxygen. IV diuresis as above. Encouraged IS use, wean oxygen as able for goal sat >88%. 4. Peripheral edema: L>R, developed 1-2 weeks before admit. Likely due to decompensated cirrhosis but given unequal swelling, ordered BLEVD. OL CT PA negative for PE. IV diuresis as above. 5. Chronic thrombocytopenia: and leukopenia since 2008. Secondary to alcoholic cirrhosis. Baseline WBC 2.5, Plt 45-60, Hgb ~14 per lab review. [facility] Plt 30, WBC 1.97, Hgb 13.1. No signs of bleeding currently. Further GI workup as above. Monitor counts, transfuse Plts if <20. 6. Coagulopathy: secondary to cirrhosis. INR 1.8 at OL. No signs of bleeding. Monitor labs daily. FFP if needed. 7. New onset diabetes mellitus: pt denies prior diagnosis. BG 452 at OL, A1c 9.6. Reviewed labs and noted BG 200s since 2008. Started low dose basal, SSI. Titrate prn. Consulted Province Archivist. 8. Right ventricular systolic dysfunction: TTE 10/18/19 noted moderate RV dilation, mild reduction in systolic function. CT PA at [facility] negative for PE. Follow up outpatient with Cardio for repeat TTE in 3-6 months. 9. COPD: per history. No home oxygen. No acute exacerbation. No home inhalers. Ordered PRN albuterol nebs. 10. Alcoholism in remission: longstanding alcohol abuse, stopped drinking 4 years prior per pt. Encouraged continued sobriety. 11. Insomnia: recent complaint. Started Melatonin nightly on admit. 12. Constipation: takes stool softner at home, continued. 13. DVT prophylaxis: SCDs. Current living situation: home Expected Disposition: home Estimated discharge date: TBD Chief Complaint: One week of peripheral edema and dyspnea. History of Present Illness: Hetal Jasso is a 64 y.o. female with a history of alcoholic cirrhosis diagnosed in 2009, alcohol abuse in remission, COPD, arthritis who presented to [facility] on 10/17/19 with 7 days of peripheral swelling and dyspnea. CT PA found no PE but noted mod-large left and small-mod right pleural effusions, pulmonary HTN, cirrhotic changes and moderate ascites. Na 134, K 3.1, BG 452, Dbili 2.7, Tbili 5.6, Alk Phos 241, WBC 1.97, Plt 30, INR 1.8, A1c 9.6. Transferred to [facility] 10/18/2019 for GI consult and further care. She reports having developed peripheral edema and dyspnea with minimal activity about one week ago. She also noted abdominal distension and not being able to lie completely flat about 3 days ago. She has some mild RUQ pain but denies generalized abdominal pain, fevers, chills. No melena, hematemesis or hematochezia. No diarrhea but she does have some constipation for which she takes a stool softner at home. She reports that she used to be an alcoholic but stopped drinking about 4 years ago. She endorses having been diagnosis with cirrhosis ~10 years ago and has had low platelet counts since her diagnosis. She does not take diuretics nor does she remember having had an EGD in the past. She denies having to have a paracentesis in the past to remove fluid from her abdomen. She does not currently follow with a GI doctor. She has been told that her Plt count is low but does not know what her normal is. She denies CP or cardiac history but did take Quinidine for unknown reasoning when she was [age] but stopped taking this after she delivered her first child. History of COPD but no oxygen or regular inhaler use. No other medical history reported. Personally reviewed ECG from 10/17/19: ST at 104 bpm, no acute ischemic changes, QTc 444 ms. Pt and plan discussed with Dr. Calix ([employer] attending). ROS: 10 systems were reviewed and negative, except as noted above. Past Medical, Surgical, Social, Family History: Past Medical History: Diagnosis Date Alcohol abuse in remission Arthritis Asthma Chronic leukopenia Cirrhosis (HCC) alcoholic diagnosed 10 years ago, no prior EGD COPD (chronic obstructive pulmonary disease) (HCC) History of transfusion not sure pt states Thrombocytopenia (HCC) Past Surgical History: Procedure Laterality Date ABDOMINAL SURGERY ex lap, and cyst removal ANKLE SURGERY CARDIAC SURGERY 2 cardiac caths at the age of 17 at [facility] FRACTURE SURGERY left ankle/ plates and screws HYSTERECTOMY SKIN BIOPSY Social History Socioeconomic History Marital status: Spouse name: Not on file Number of children: Not on file Years of education: Not on file Highest education level: Not on file Occupational History Not on file Social Needs Financial resource strain: Not on file Food insecurity Worry: Not on file Inability: Not on file Transportation needs Medical: Not on file Non-medical: Not on file Tobacco Use Smoking status: Current Every Day Smoker Packs/day: 0.25 Types: Cigarettes Smokeless tobacco: Never Used Substance and Sexual Activity Alcohol use: Yes Comment: occasionally Drug use: Never Sexual activity: Not Currently Lifestyle Physical activity Days per week: Not on file Minutes per session: Not on file Stress: Not on file Relationships Social connections Talks on phone: Not on file Gets together: Not on file Attends baptist service: Not on file Active member of club or organization: Not on file Attends meetings of clubs or organizations: Not on file Relationship status: Not on file Other Topics Concern Not on file Social History Narrative Not on file Family History Problem Relation Age of Onset Alcohol abuse Mother Arthritis Mother Cancer Mother Arthritis Sister Asthma Sister COPD Sister Depression Sister Miscarriages / Stillbirths Sister Alcohol abuse Brother Cancer Brother Early Brother Heart disease Brother Stroke Maternal Grandmother Home Medications: Outpatient Medications as of 10/18/2019 Medication Sig ergocalciferol (ERGOCALCIFEROL) 1,250 mcg (50,000 unit) capsule Take 50,000 Units by mouth Every 5 days . Physical Exam: BP 107/67 Pulse 94 Temp 97.8 F (36.6 C) (Oral) Resp 16 Ht 5' 5 BMI 21.30 kg/m General: NAD, alert. Chronically ill appearing, older than stated age. Eyes: gaze conjugate, scleral icterus. ENT: MMM. Cardiovascular: RRR, no murmurs. 2+ pitting edema to BLE, L>R. Palpable peripheral pulses. Respiratory: Fine crackles throughout, unlabored on oxygen. Gastrointestinal: Semi firm, tender RUQ, nondistended, BS+. Genitourinary: no suprapubic tenderness. Musculoskeletal: No cyanosis. Skin: warm, dry. No prominent veins to abdomen. Jaundiced. Chronic venous stasis changes to BLE. Neuro: Alert, oriented x3, no focal deficits noted. No asterixis. Psych: flat affect, cooperative. Labs, Imaging, and Studies reviewed: Results from last 7 days Lab Units 10/17/19 1520 WBC K/mcL 1.97* HGB g/dL 13.1 HCT % 38.6 PLT K/mcL 30* Results from last 7 days Lab Units 10/17/19 1520 SODIUM mmol/L 134* POTASSIUM mmol/L 3.1* CHLORIDE mmol/L 97* BICARB mmol/L 25 BUN mg/dL 5* CREATININE mg/dL 0.53* EGFR mL/min/1.73 m2 99 GLUCOSE mg/dL 452* CALCIUM mg/dL 8.3* Results from last 7 days Lab Units 10/17/19 1520 ALTR U/L 30 AST U/L 50* ALK PHOS U/L 241* BILIRUBIN TOTAL mg/dL 5.6* Results from last 7 days Lab Units 10/17/19 1520 INR 1.8* Associated attestation - Adilene Calix DO - 10/18/2019 5:36 PM EDT I saw and examined Hetal Jasso independently reviewing labs, imaging and consultation notes. I was physically present for the tran portions of the services provided. I agree with the plan of Gladis Kwan CNP - with the following additions and exceptions. Hetal Jasso is a 64 yr old F with PMHx alcoholic cirrhosis, COPD who presented to [facility] with 1 week history of b/l LE swelling and dyspnea and found to have decompensated cirrhosis. She was transferred to [facility] for further care. Hospital course complicated by b/l pleural effusions, coagulopathy, thrombocytopenia, new onset T2DM and RV dysfunction. Admits that breathing feels mildly improved after diuretics. Never new she was diabetic before although chart review shows persistent hyperglycemia. RUQ US with cirrhosis, 1cm hepatic lesion, possible portal vein thrombus, cholelithiasis, biliary duct dilatation and ascites. CTPA with b/l pleural effusions. TTE with RV dilation and decreased systolic function. Suspect all related to untreated cirrhosis. Will treat with IV lasix and added spironolactone. GI and VIR consults. A1c 9.6 and therefore initiated on basal and bolus insulin. DM educator consulted, likely will need insulin at discharge. documented in this encounter Stefanie Mayer MD - 10/18/2019 9:39 PM EDT Procedure Notes (unrecognize d section and content) Vascular & Interventional Radiology Provided By [facility] (Diagnostic Radiology, Interventional and Neurointerventional Radiology and Vascular Medicine) Interventional Radiology Department @ [facility]: [phone] 24/10 VIR physician contact: ([phone]) Weekday VIR nurse practitioner contact @ [facility]: [phone] [facility]: [phone] [employer] [facility] TRANSPORT TANK TECHNICIAN DIRECTORY PROCEDURE: Ultrasound guided paracentesis Date: 10/18/2019 Physician: Stefanie Mayer MD Sedation: None [place] Protocol: Pre-Procedural verification: Correct patient, correct site and correct procedure confirmed. H&P or interval update complete and in medical record. Informed consent form completed and signed. Radiology images, labs and pathology reviewed with appropriate identifiers (when applicable). Site Marking: N/A Time Out: PERFORMED Technique: The site was prepped. Local anesthesia was utilized. A 5Fr One Step catheter was advanced into the peritoneal cavity from a right upper approach. A total of 350 mL of cloudy dark orange fluid was obtained. The catheter was subsequently removed and a dressing was applied. The patient tolerated the procedure well without complication. Complications: None Full report to follow documented in this encounter Fredy Dunne, HEAD OF STRATEGY - 10/25/2019 3:00 PM EDRenetta Watson OT - 10/25/2019 10:16 AM EDTrina Tsang RN - 10/24/2019 4:18 PM EDTPCelio daniel PT - 10/24/2019 3:10 PM EDT Consult Notes (unrecognized section and content) Speech Pathology Communication / Cognition Eval Note Discharge Recommendations: Factors for Returning to Prior Level of Function Body Structure and Function: Musculoskeletal impairment, Neurologic impairment, Further assessment required to determine Explain Impairments: h/o alcoholic cirrhosism currhotic changes, and moderate ascites, s/p pancreatesis, chronic leukopenia and thryombocytopenia, acute hypoxic respiratory failure, Activities and Participation: Communication limitation, Executive function limitation, Further assessment required to determine Explain Limitations: cognitive-communication impairments Environmental Factors: Home situation, Family/caregiver support, Further assessment required to determine Explain Environmental Factors: lives with boyfriend Personal Factors: Awareness of own capacity and performance, Further assessment required to determine Explain Personal Factors: suspect reduced insight Skilled Therapy Needs: Anticipate Resolution of Current Assessment Limitations Including: Mechanical Barriers, Social Support Are Skilled Therapy Services Needed After Discharge: Yes Intensity of Skilled Therapy: Up to 5 days per week Anticipated Duration of Skilled Therapy: Duration 7 - 10 days Impressions: Pt this date presents with mild/mod cognitive-linguistic and mild communication impairments, characterized by reduced insight, slower processing, prolonged thought organization and problem solving, mildly reduced STM, working memory and impairments r/t executive functioning. Pt would benefit from assistance with meds and IADLS, and daily management. Pt with slow rate of speech which she reports worse over past few months since fall, however pt interested in improvement and gaining more function. Oral/Motor: Oral Motor Impression-Severity Scale: Minimal Labial ROM: Reduced coordination Labial Symmetry: Within Functional Limits Labial Strength: Within Functional Limits Lingual ROM: Within Functional Limits Lingual Symmetry: Within Functional Limits Lingual Strength: Within Functional Limits Lingual Sensation: Within Functional Limits Vocal Quality: Exceptions to WFL Hyponasal Resonance: Mild Vocal Intensity: Mildly decreased Intelligibility: Intelligible Breath Support: Adequate for speech Dentition: Permanent Auditory Comprehension: Auditory Comp Impression-Severity Scale: WFL Yes/No Questions: Within Functional Limits Commands: Within Functional Limits Conversation: WDL Visual Recognition: Visual Recognition Impression-Severity: WNL Reading Comprehension: Reading Comp Impression-Severity: (pt reports reduced over past months to a year) Expression: Expression Impression-Severity: Minimal(slow, but functional ) Primary Mode of Expression: Verbal Verbal Expression: Verbal Expression Impression-Severity: WNL Aphasia: None present Naming: No impairment Written Expression: Speech Cognition: Oriented X4 Speech Cognition Impression-Severity: Mild, Moderate Attention: Within Functional Limits Memory: Exceptions to WFL Short-term Memory: Min assist 75-90% Working Memory: Minimal Problem Solving: Exceptions to WFL Simple Functional Tasks: Supervision 90-100% Safety/Judgement: Exceptions to WFL Complex Functional Tasks: Min assist 75-90% Novel Situations: Supervision 90-100% Behavioral Observations: Decreased awareness of need for assistance, Decreased awareness of need for safety Insight: Mild Impulsive: Within functional limits Flexibility of Thought: Reduced flexibility Prior Level of Function: Prior Function Primary Language: German Education Level: High school grad Prior Speech Deficit: n/a Prior Language Deficit: n/a Prior Cognitive Deficit: n/a Prior Swallow Deficit: n/a Past Medical History: Diagnosis Date Alcohol abuse in remission Arthritis Asthma Chronic leukopenia Cirrhosis (HCC) alcoholic diagnosed 10 years ago, no prior EGD COPD (chronic obstructive pulmonary disease) (HCC) History of transfusion not sure pt states Thrombocytopenia (HCC) Past Surgical History: Procedure Laterality Date ABDOMINAL SURGERY ex lap, and cyst removal ANKLE SURGERY CARDIAC SURGERY 2 cardiac caths at the age of 17 at [facility] CV IR INTERVENTIONAL RADIOLOGY N/A 10/18/2019 Procedure: IR PARACENTESIS; Surgeon: Stefanie Mayer MD; Location: [facility] IR LAB; Service: Interventional Radiology EGD N/A 10/23/2019 Procedure: ESOPHAGOGASTRODUODENOSCOPY; Surgeon: Yoandy Fisher MD; Location: [facility] Endo; Service: Gastroenterology FRACTURE SURGERY left ankle/ plates and screws HYSTERECTOMY SKIN BIOPSY Speech Pathology Communication / Cognition Treatment Note Total Treatment Time (Total Session Time): 33 Minutes Treatment Provided / Skilled Intervention: During therapy session, HEAD OF STRATEGY completed education re: HEAD OF STRATEGY POC, and pt ability to improve mod complex comprehension, retention of new information, use of repetition and rehearsal with good success. Recommend ongoing skilled speech therapy in dc setting. For complete objective data, detailed plan of care, and education refer to: Speech Comm/Cog Eval flow sheet, as well as patient Plan of Care and Education documentation. This note stands as the current Discharge Summary upon patient discharge from the hospital or completion of Speech Pathology Plan of Care Occupational Therapy OCCUPATIONAL THERAPY EVALUATION NOTE Skilled Therapy Needs After Discharge Anticipate Resolution of Current Assessment Limitations Including: Mechanical Barriers, Social Support Are Skilled Therapy Services Needed After Discharge: Yes Intensity of Skilled Therapy: Up to 5 days per week Anticipated Duration of Skilled Therapy: Duration 7 - 10 days DME Recommendation: Wheeled walker DME Rationale: Patient's condition prevents him/her from accomplishing ADL without recommended equipment Rehab Potential: Good Outcomes Measures Prior Function Daily Activity: Raw Score: 24 Prior Function Daily Activity % Impaired: 0% functionally impaired AM-PAC Daily Activity: Raw Score: 19 AM-PAC Daily Activity % Impaired: 42.80% functionally impaired Occupational Therapy Assessment The patient's current functional participation deficits are grooming, UE dressing, LE dressing, bathing, toileting, medication management, meal preparation, home management, hobbies, functional mobility, student financial services counselor. This reduced independence will limit their life roles of premorbid level individual. The patient's co morbidities do affect patient performance in the above activities and roles. The performance deficits are a result of musculoskeletal, cardiopulmonary impairment(s) in generalized debility including strength, range of motion, balance, acitvity tolerance, respiratory capacity, pain, memory, problem solving, sequencing, insight, safety, and knowledge deficit. The patient's family / caregiver support is a claim investigator for return to prior level of function. The patient's awareness of own capacity and performance is a barrier to return to prior level of function. During the assessment, minimal to moderate modification of task was required and several treatment options were identified in the plan of care. This consultation required expanded review of the medical and therapy history. Activity Tolerance Activity Tolerance: Tolerates 10 - 20 min activity with multiple rests(desat to 88-89% on room air with exertion) Therapy Precautions Orthotic Devices: No Weight Bearing Status: WFL General Rehab Precautions: Fall risk Cognition Overall Cognitive Status: Impaired Arousal/Alertness: Appropriate responses to stimuli Orientation Level: Oriented X4 Executive functioning: Insight, Planning / Organizing, Min impairment Safety Judgment: Decreased awareness of need for assistance, Decreased awareness of need for safety Problem Solving: Assistance required to identify errors made, Assistance required to generate solutions Attention: Attends to quiet environment Hearing Status: [facility] Social Interaction: Cooperative, Appropriate Comments: Patient demonstrates the ability to follow one step commands appropriately. Mild insight deficits noted and patient does endorse having some short term memory deficits (this was evident during session). ADL/IADL Grooming : Stand by assistance(standing sinkside hand care) Toileting : Min(x 2 trials) Bed Mobility Supine to Sit: Stand by assistance Functional Transfers Sit to Stand: Stand by assistance Bed to Chair Transfers: Contact Guard Toilet Transfers: Contact Guard Home Living Type of Home: House Home Layout: One level, Able to live on main level with bedroom/bathroom Bathroom Shower/Tub: Tub/shower unit Bathroom Toilet: Standard Bathroom Equipment: Shower chair Bathroom Accessibility: Accessible Prior Level of Function Level of Ray: Independent with ADLs and functional transfers, Independent with homemaking with ambulation Lives With: Significant other ADL Assistance: Independent Homemaking Assistance: Needs assistance Vocational: Retired Comments: drives, manages own medications and finances, outpatient therapy for right shoulder fx that happened 07/01/19, does not use device at baseline Past Medical History: Diagnosis Date Alcohol abuse in remission Arthritis Asthma Chronic leukopenia Cirrhosis (HCC) alcoholic diagnosed 10 years ago, no prior EGD COPD (chronic obstructive pulmonary disease) (HCC) History of transfusion not sure pt states Thrombocytopenia (HCC) Past Surgical History: Procedure Laterality Date ABDOMINAL SURGERY ex lap, and cyst removal ANKLE SURGERY CARDIAC SURGERY 2 cardiac caths at the age of 17 at [facility] IR INTERVENTIONAL RADIOLOGY N/A 10/18/2019 Procedure: IR PARACENTESIS; Surgeon: Stefanie Mayer MD; Location: [facility] IR LAB; Service: Interventional Radiology EGD N/A 10/23/2019 Procedure: ESOPHAGOGASTRODUODENOSCOPY; Surgeon: Yoandy Fisher MD; Location: [facility] Endo; Service: Gastroenterology FRACTURE SURGERY left ankle/ plates and screws HYSTERECTOMY SKIN BIOPSY OCCUPATIONAL THERAPY TREATMENT NOTE Cognitive Skills Development Skilled Intervention: Patient was educated on benefits of walker use, ROM of RUE, activity guidelines, and pursed lip breathing strategies with verbalized understanding, will need f/u education. Functional Transfers Skilled Intervention: Patient completes functional mobility household distances without walker CGA but patient is noted to reach for external support for balance. Initiated walker use for energy conservation and stability, improvements to SBA with cues for device management, pacing, and posturing techniques. For complete objective data, detailed plan of care and patient education refer to: OT EVALUATION flow sheet, OT TREATMENT flow sheet, patient Plan of Care, Plan of Care progress note, and Patient Education. This note stands as the current Discharge Summary upon patient discharge from the hospital or completion of Occupational Therapy Plan of Care. Associated Order(s): IP CONSULT TO EVP AND CHIEF OPERATING OFFICER DIABETES EDUCATION follow up: Patient relayed concern that she may not be able to do insulin correctly at home; had several questions and needed clarification especially about timing of injections. Noted that patient did not recall being demonstrated the insulin pen even though she was taught yesterday. Was only able to remember while doing another pen demo. Required several practices to dial up to correct numbers even with glasses on. Will need supervision for insulin pen injection. After she spoke with daughter on the phone, patient stated that she agreed that a nursing facility would be the best option for her. Per patient, her would not be of help at home. Reviewed signs and management of hypoglycemia and hyperglycemia; when to seek medical help. Encouraged follow up and to practice sugar checks and self injections while at the hospital. Understood topics discussed but may need reinforcement due to memory issues. Has Diabetes materials that were previously given. Clinical references attached. Physical Therapy PHYSICAL THERAPY EVALUATION NOTE Skilled Therapy Needs After Discharge Anticipate Resolution of Current Assessment Limitations Including: Social Support, Mechanical Barriers Are Skilled Therapy Services Needed After Discharge: Yes Intensity of Skilled Therapy: Up to 5 days per week Anticipated Duration of Skilled Therapy: Duration 7 - 10 days DME Recommendation: (patient said to own wheeled walker ) Outcomes Measures Prior Function - Basic Mobility Raw Score: 24 Points Prior Function - Basic Mobility % Impaired: 0% functionally impaired AM-PAC - Basic Mobility Raw Score: 16 Points AM-PAC - Basic Mobility % Impaired: 47.12% functionally impaired Physical Therapy Assessment History: The following factors influence the patient's participation in the PT plan of care: Personal Factors: Apprehensive Toward Mobility The following co-morbidities (from this admission or prior) influence the patient's participation in this plan of care: acute hypoxic respiratory failure, B pleural effusion, COPD, [place], balance and strength deficits. Number of History elements affecting this patient's PT plan of care: 3 or more Examination of Body Systems: The patient presents with: Musculoskeletal impairments: Strength, Functional Endurance Neurologic Impairments: Coordination, Balance Cardiopulmonary Impairments: Activity Tolerance, O2 Saturation Regulation with Activity. These impairments result in limitations of Gait, Functional Transfers, Activity Tolerance, Insight. These impairments result in restrictions of Household mobility, Community mobility, Leisure activities. Number of Body Systems elements affecting this patient's PT plan of care: 4 or more. Clinical Presentation: The patient's clinical presentation for this PT evaluation is unstable as evidenced by current PT documentation. Activity Tolerance Activity Tolerance: Tolerates 10 - 20 min activity with multiple rests Therapy Precautions Orthotic Devices: No Weight Bearing Status: WFL General Rehab Precautions: Fall risk Balance Sitting Balance - Static: Sits without support for more than 30 seconds Sitting Balance - Dynamic: Moves / returns trunkal midpoint more than 2 inches in all planes Standing Balance - Static: Supports self independantly with both upper extremities Standing Balance - Dynamic: (CGA with FWW) Bed Mobility Rolling: Contact guard Supine to Sit: Contact guard Sit to Supine: Contact guard Transfers Sit to Stand: Stand by assistance Bed to Chair: Contact guard Stand Pivot Transfers: Contact guard Machine Greaser: Wheeled walker, 1 person, Gait belt Gait/Locomotion Gait Assistance: Contact guard Assistive Device: Wheeled walker Distance: ([id number]) Pattern: Step through, R decreased step length, L decreased step length, Over reliance on upper extremities Weight Bearing Status: Able to maintain Home Living Type of Home: House Home Layout: One level, Able to live on main level with bedroom/bathroom Bathroom Shower/Tub: Tub/shower unit Bathroom Toilet: Standard Bathroom Equipment: Shower chair Bathroom Accessibility: Accessible Prior Level of Function Level of Ray: Independent with ADLs and functional transfers, Independent with homemaking with ambulation Lives With: Significant other ADL Assistance: Independent Homemaking Assistance: Needs assistance Vocational: Retired Past Medical History: Diagnosis Date Alcohol abuse in remission Arthritis Asthma Chronic leukopenia Cirrhosis (HCC) alcoholic diagnosed 10 years ago, no prior EGD COPD (chronic obstructive pulmonary disease) (HCC) History of transfusion not sure pt states Thrombocytopenia (HCC) Past Surgical History: Procedure Laterality Date ABDOMINAL SURGERY ex lap, and cyst removal ANKLE SURGERY CARDIAC SURGERY 2 cardiac caths at the age of 17 at [facility] IR INTERVENTIONAL RADIOLOGY N/A 10/18/2019 Procedure: IR PARACENTESIS; Surgeon: Stefanie Mayer MD; Location: [facility] IR LAB; Service: Interventional Radiology EGD N/A 10/23/2019 Procedure: ESOPHAGOGASTRODUODENOSCOPY; Surgeon: Yoandy Fisher MD; Location: [facility] Endo; Service: Gastroenterology FRACTURE SURGERY left ankle/ plates and screws HYSTERECTOMY SKIN BIOPSY PHYSICAL THERAPY TREATMENT NOTE Total Treatment Time (Total Session Time): 30 Minutes Timed Code Treatment Minutes: 16 Minutes Neuromuscular Reeducation Standing weight shifting all planes Skilled Intervention: cues needed to maintain the SIERRA with the walker. Gait Training Skilled Intervention: cues needed for walker safety, safe turn negotiation and maintaining the SIERRA through out the ambulating distance. patient felt little SOB after ambulation with her SpO2 at 90% and with some deep breathing exercises it jumped to 93%. Therapeutic Activities Bed Mobility Skilled Intervention: cues needed for proper hand placement and assist for BLE and trunk management. Transfers Skilled Intervention: cues for hand/foot placement and push from the surface to initiate the transfer. Therapeutic Exercises Patient instruction on deep breathing exercises. For complete objective data, detailed plan of care and patient education refer to: PT EVALUATION flow sheet, PT TREATMENT flow sheet, patient Plan of Care, Plan of Care progress note, and Patient Education. This note stands as the current Discharge Summary upon patient discharge from the hospital or completion of Physical Therapy Plan Associated Order(s): IP CONSULT TO CARE MANAGEMENT COMPLEX DISCHARGE Date: 10/24/2019 Time: 12:14 PM Patient Name: Hetal Jasso Date of : 1955 Sex: Female Discharge Planning Living Arrangements: Friends Support Systems: Friends/neighbors Assistance Needed: possible Type of Residence: Private residence Prior to Admission Home Care Services: No Current Home Equipment: None Anticipated HME: None Anticipated Home Care Needs: Undetermined Anticipated Discharge Plan Anticipated HME: None Anticipated Home Care Needs: Undetermined Potential for Readmission Potential for Readmission: No Discharge Readiness Expected Discharge Date: 10/25/19 [facility] Disposition D/C Disposition: Intermediate Care Facility Agency/Destination: Other([facility]) Home Care Needs : None HME: None Same As Recommended : yes Transportation Type: Ambulance Options Reviewed: List provided, Possible expense, Explained services/benefits Reason for Choice: Patient/Family preference [employer] c/s for d/c planning needs. Per nursing report, pt's family and SO have concerns with her returning home at d/c. [employer] spoke w/ pt's nicole Jason ([phone]) about their family's concerns. Per Jason, pt lives with her SO and he feels that he is unable to care for pt at home. They would like to attempt to get pt into a LTC facility called [facility] at d/c. Pt's nicole to discuss plan with pt and [employer] will follow up and send referral. ADDENDUM 1:36pm: Pt agreeable to d/c plan. Referral sent to [facility]. Associated Order(s): IP CONSULT TO EVP AND CHIEF OPERATING OFFICER Diabetes education completed with patient. Pt is new to insulin and diabetes. Previous education started on diet changes and disease process. Returned today to review insulin pen use. Pt likely discharging on basal bolus insulin, however, pt would benefit from assistance at home or [facility] with this regimen. Pt demonstrated insulin pen use and practiced doing an injection , however, questionable ability to do this at home without help or reinforcement. CM consulted for transition of care. Can verify family involvement with care. Education on long acting insulin. Recommending a simplified regimen if possible. Patient could likely do 1 injection daily but concerning for a basal bolus regimen. Education on Lantus. Please order insulin pens and pen needles. Gave pt insulin pen instructions and a 5 day meal plan. Pt verbalized understanding but would benefit from reinforcement. Will follow up tomorrow for more practice and education. family educator following for insulin teaching. Pt currently in a procedure. Will follow up later today. Diabetes education follow up: Discharge regimen still being determined for insulin. Attempted meeting with patient for insulin pen teaching, pt sleeping in room. Will follow up and return later. Associated Order(s): IP CONSULT TO DIETITIAN Nutrition Care Initial Assessment Reason for visit: Physician/TABLE AND DESK FINISHER/PA Consult for malnutrition Nutrition Diagnosis: Hyperglycemia related to new onset diabetes as evidenced by hemoglobin A1c>6% Pt meets ASPEN criteria forsevere malnutrition in context of acute illness AEB <50% energy intake > 5 days, moderate fluid accumulation, moderate muscle mass depletion. Nutrition Intervention/Prescription: Continue Current diet as ordered; encourage po intake and monitor for adequacy Reinforce diet modifications Will trial Hitesh Nazario q day Nutrition Goals: PO intake > 75% most meals Start Date:10/21/2019 Expected End Date:10/27/2019 Nutrition Education: pt denies questions on diet at this time; but hasn't really reviewed diet info left by educator. Stated she will read it once she is at home Subjective: Pt eating >50% of meals, appetite improving. Endorsed poor appetite with decrease in po intake dining room captain. Stated wt car changer 2.5 wks from 116# to 130# Objective: 64 y.o. Female Dx: neutropenia Pertinent clinical information: peripheral edema and dyspnea on presentation; zita pleural effusions and ascites. Paracentesis done 10/17, 350ml removed. New onset DM; seen by DB educator x2. PMHx: EtOH cirrhosis, COPD Height: 5' 5 Admit wt: 58kg Current weight: 61 kg (134 lb 7.7 oz) BMI Body mass index is 22.38 kg/m . Weight History: 59.4kg (06/2019) Wt Readings from Last 5 Encounters: 10/18/19 61 kg (134 lb 7.7 oz) 10/19/19 60.8 kg (134 lb) 10/17/19 58.1 kg (128 lb) 10/17/19 58.1 kg (128 lb) Recent Labs 10/18/19 1529 10/19/19 0406 10/20/19 0514 10/21/19 0602 NA 138 136 -- 135 K 2.7* 3.7 -- 3.6 BICARB 27 29 -- 29 GLUCOSE 237* 348* -- 243* BUN 7* 9 -- 10 CREATININE <0.20* <0.20* -- <0.20* MG 1.5* -- 1.4* 1.4* Lab Results Component Value Date ALBUMIN 2.1 (L) 10/21/2019 Diet Special; Diabetic, Cardiac; Carbohydrate Consistent 60g/meal (4456-6858 kCal equivalent) Recent intake: 50-75%; Likely meets estimated needs. Difficulty Chewing/Swallowing: No Meds: lasix, lantus, SSI-N, senna, aldactone BG range: 172-336 x24hrs Skin Integrity: nursing flowsheets reviewed; +1-2 edema Nutrition Focus Physical Exam Type: Hands-On Regions Assessed Orbital: mild fat depletion Temporal: mild muscle depletion Clavicular: moderate muscle depletion Deltoid and Acromion Process: moderate muscle depletion Quadriceps: WNL GI function: +BM Estimated Energy Needs Total Energy Estimated Needs: 1942-1499 Method for Estimating Needs: 25-30 kcals/kg(admit wt: 58kg) Total Protein Estimated Needs: 57-74g Method for Estimating Needs: 1-1.3g/kg IBW Assessed by: Terra Merrill RD, LD, [facility] Vocera: [phone] Met with patient at bedside to follow up on education. Explained diabetic diet, portion control, reading labels, & use of artificial sweetener. Answered questions about sugar and carbohydrates. Pt is very drowsy and falling asleep, didn't want to go over insulin pen at this time. Will continue to follow. Associated Order(s): IP CONSULT TO CARE MANAGEMENT COMPLEX DISCHARGE Date: 10/21/2019 Time: 11:57 AM Patient Name: Hetal Jasso Date of : 1955 Sex: Female Discharge Planning Living Arrangements: Friends Support Systems: Friends/neighbors Assistance Needed: possible Type of Residence: Private residence Prior to Admission Home Care Services: No Current Home Equipment: None Anticipated HME: None Anticipated Home Care Needs: Undetermined Anticipated Discharge Plan Anticipated HME: None Anticipated Home Care Needs: Undetermined Potential for Readmission Potential for Readmission: No Discharge Readiness Expected Discharge Date: 10/22/19 [facility] Disposition D/C Disposition: Home Spoke with patient who lives with friend. Pt noted on [facility] workque list for no PCP . Pt has appt established Monday but does not know name and time of appt. Appt is scheduled in [place]. Pt trying to get hold of friend to provide me with details of physician and appt ( information is at home) . Pt with new onset of DM and currently being treated with basal insulin. family educator is consulted to see pt. Upon d/c pt signed up for meds to bed. No other need identified at this time. Associated Order(s): IP CONSULT TO CARE MANAGEMENT COMPLEX DISCHARGE Date: 10/19/2019 Time: 4:25 PM Consult for Newly diagnosed with DM, will need supplies. No PCP listed on facesheet. Pt pending consult for DM educator. No therapy orders. Please send pt's orders for supplies to pt's pharmacy or meds to beds for [facility] to assist assessing for cost. Expected d/c date TBD. [facility] will continue to follow. Patient Name: Hetal Jasso Date of : 1955 Sex: Female Discharge Planning Living Arrangements: Friends Support Systems: Friends/neighbors Assistance Needed: possible Type of Residence: Private residence Prior to Admission Home Care Services: No Current Home Equipment: Undetermined Anticipated HME: None Anticipated Home Care Needs: Undetermined Anticipated Discharge Plan Anticipated HME: None Anticipated Home Care Needs: Undetermined Potential for Readmission Potential for Readmission: No Associated Order(s): IP CONSULT TO INTERVENTIONAL RADIOLOGY Vascular & Interventional Radiology Provided By [facility] (Diagnostic Radiology, Interventional and Neurointerventional Radiology and Vascular Medicine) Interventional Radiology Department @ [facility]: [phone] Interventional Radiology Department @ [facility]: [phone] 24/10 VIR physician contact: [phone]) Weekday VIR nurse practitioner contact @ [facility]: [phone] [facility]: [phone] [email or web address] [facility] TRANSPORT TANK TECHNICIAN DIRECTORY The consult was reviewed. The patient's chart was reviewed. The patient's H&P was reviewed. The patient will be scheduled for the requested Paracentesis procedure. Procedure date and time TBD by the [facility] control desk @ [phone], once pertinent labs and anticoagulant medications have been reviewed, per guidelines below. Please refer to the procedure note section for preliminary procedure details as well as the imaging section for the final procedure report. Pertinent labs are as follows: Results from last 7 days Lab Units 10/18/19 1529 INR 1.9* No results found for: PTT Lab Results Component Value Date PLT 30 (CL) 10/17/2019 Lab Results Component Value Date BUN 5 (L) 10/17/2019 Lab Results Component Value Date CREATININE 0.53 (L) 10/17/2019 Patient's allergies are as follows: Allergies as of 10/17/2019 - Reviewed 10/17/2019 Allergen Reaction Noted Bupropion Other (See Comments) 01/07/2019 [facility] Maki-procedure anticoagulant guideline: VIR Maki-procedure lab value guideline: family educator following: Seen for new diagnosis DM HgbA1c 9.6% glucose 452 on admission Educated on diagnosis and what A1C was, risk factors of uncontrolled DM. Reviewed s/s hypo/hyperglycemia. Discussed her current diet which consisted largely of sweetened carbohydrates (doughnuts, cakes, breads, candies) . Basic guidelines of DM diet covered- eating 4-6 hours apart, balanced diet, protein, low carb, label reading. Importance of frequent glucose monitoring and medication compliance emphasized. Demonstrated performing glucose check and drawing and injecting sq insulin. Patient to practice with nursing staff. Instructed on foot care, neuropathy safety, sick day guidelines, importance of follow up with MD. Solutions for DM book, sample menu, snack ideas given to patient. Education attached to AVS Plan to see Monday for reinforcement Associated Order(s): IP CONSULT TO GASTROENTEROLOGY GASTROENTEROLOGY CONSULT NOTE 4 Patient Name: Hetal Jasso Admit Date: MR #: [id number] : 1955 Physicians: Physician No (Family); Lesvia Salcido* (Referring) Consult Ordered By: Gladis Kwan CNP Assessment and Plan: Digestive Decompensated hepatic cirrhosis (HCC) Assessment & Plan 64yo F w PMHx alcohol abuse, cirrhosis (diagnosed 10yrs ago), pancytopenia, and COPD who presented to [facility] with LE swelling and SOB. Found to have cirrhosis with ascites, b/l pleural effusions, and multiple lab abnormalities. Transferred to [facility] and GI consulted for further evaluation of decompensated cirrhosis. - pt reports sobriety x 4 years - CTPA ([facility]): neg PE; moderate b/l pleural effusions L>R, e/o pulmonary HTN, cirrhosis w splenomegaly, moderate ascites, and hepatic cysts - RUQ U/S pending - LFTs: AP 241, AST/ALT 50/30, TB/DB 5.6/2.7, alb 2.4. - WBC 1.9K, Hgb 13.1, plts 30K. INR 1.8. K 3.1, Cr 0.53 - No signs of GIB or HE IMP: Decompensated cirrhosis w ascites and fluid overload. Likely related to prior hx of EtOH abuse RECS: - f/u RUQ U/S - liver serologies - consult IR diagnostic/therapeutic paracentesis with fluid studies - check AFP tumor marker - will need EGD for variceal screening at some point - 2gm Na diet - Diuretics started but will likely need uptitrated Chief Complaint/Reason for Visit: cirrhosis History of Present Illness: Hetal Jasso is a 64 y.o. female with PMHx significant for alcohol abuse, cirrhosis, pancytopenia, and COPD who presented to [facility] with LE swelling and SOB. Found to have cirrhosis and b/l pleural effusions on imaging as well as multiple lab abnormalities. Transferred to [facility] and GI consulted for further evaluation of decompensated cirrhosis. Pt reports 1-2 weeks of LE swelling. States she has been elevating her legs with some improvement but has not helped the last couple of days. She also noted abdominal swelling over past 2-3 days. She denies abdominal pain, fever and chills. No n/v. No prior hx of paracentesis. Also with some SOB over past few days. Pt reports she was diagnosed with cirrhosis 2/2 alcohol use approx 10 years ago. Has been sober for approx 4 years. She does not currently follow with relationship specialist. She denies any jaundice. Denies encephalopathy. No new medications or recent ATBx. Reports mother and brother had liver disease. No hx GIB other than occasional bright red blood with hard stools in setting of chronic constipation. She had an EGD in 2008 at [facility] at time of diagnosis of cirrhosis which was negative for varices but did show some portal HTNive gastropathy. She also had a colonoscopy in 2008 which showed a few small polyps which were resected (benign and TA), diverticulosis, and small IH. She CTPA (at [facility]) was negative for PE but demonstrated moderate b/l pleural effusions L>R, e/o pulmonary HTN, cirrhosis w splenomegaly, moderate ascites, and hepatic cysts. RUQ U/S completed, results pending. LFTs: AP 241, AST/ALT 50/30, TB/DB 5.6/2.7, alb 2.4. WBC 1.9K, Hgb 13.1, plts 30K. INR 1.8. K 3.1, Cr 0.53. History: Past Medical History: Diagnosis Date Alcohol abuse in remission Arthritis Asthma Cirrhosis (HCC) alcoholic diagnosed 10 years ago, no prior EGD COPD (chronic obstructive pulmonary disease) (HCC) History of transfusion not sure pt states Past Surgical History: Procedure Laterality Date ABDOMINAL SURGERY ex lap, and cyst removal ANKLE SURGERY CARDIAC SURGERY 2 cardiac caths at the age of 17 at [facility] FRACTURE SURGERY left ankle/ plates and screws HYSTERECTOMY SKIN BIOPSY Family History Problem Relation Age of Onset Alcohol abuse Mother Arthritis Mother Cancer Mother Arthritis Sister Asthma Sister COPD Sister Depression Sister Miscarriages / Stillbirths Sister Alcohol abuse Brother Cancer Brother Early Brother Heart disease Brother Stroke Maternal Grandmother GI Specific Family History: No significant family history of GI malignancy or disorders Social History Socioeconomic History Marital status: Spouse name: Not on file Number of children: Not on file Years of education: Not on file Highest education level: Not on file Occupational History Not on file Social Needs Financial resource strain: Not on file Food insecurity Worry: Not on file Inability: Not on file Transportation needs Medical: Not on file Non-medical: Not on file Tobacco Use Smoking status: Current Every Day Smoker Packs/day: 0.25 Types: Cigarettes Smokeless tobacco: Never Used Substance and Sexual Activity Alcohol use: Yes Comment: occasionally Drug use: Never Sexual activity: Not Currently Lifestyle Physical activity Days per week: Not on file Minutes per session: Not on file Stress: Not on file Relationships Social connections Talks on phone: Not on file Gets together: Not on file Attends baptist service: Not on file Active member of club or organization: Not on file Attends meetings of clubs or organizations: Not on file Relationship status: Not on file Other Topics Concern Not on file Social History Narrative Not on file Allergy Information: I have reviewed the patient's allergies. Bupropion Home Medications: Outpatient Medications as of 10/18/2019 Medication Sig ergocalciferol (ERGOCALCIFEROL) 1,250 mcg (50,000 unit) capsule Take 50,000 Units by mouth Every 5 days . Review of Systems: All remaining ROS were reviewed and negative except those mentioned in the history of present illness Physical Examination: Vital Signs: Temp: [97.8 F (36.6 C)] 97.8 F (36.6 C) Heart Rate: [93-106] 94 Resp: [14-20] 16 BP: (105-130)/(64-80) 107/67 CONSTITUTIONAL: Appropriate attention to grooming, normal body habitus, NAD HEENT: Normocephalic, atraumatic, sclera icteric CARDIAC: Regular rate & rhythm. LUNGS: Clear to auscultation anteriorly ABDOMEN: soft, non-distended, +BS and non-tender. SKIN: Jaundice NEURO: No asterixis PSYCHIATRIC: Normal insight, AAO x 3, normal affect/mood EXTREMITIES: LE pitting edema bilaterally Laboratory and Additional Data Reviewed: Laboratory 10/18/19 3:18 PM Radiology 10/18/19 3:18 PM Medications 10/18/19 3:18 PM Transcriptions 10/18/19 3:18 PM Results from last 7 days Lab Units 10/17/19 1520 WBC K/mcL 1.97* HGB g/dL 13.1 HCT % 38.6 PLT K/mcL 30* Results from last 7 days Lab Units 10/17/19 1520 SODIUM mmol/L 134* POTASSIUM mmol/L 3.1* CHLORIDE mmol/L 97* BUN mg/dL 5* CREATININE mg/dL 0.53* CALCIUM mg/dL 8.3* TOTAL PROTEIN g/dL 5.4* BILIRUBIN TOTAL mg/dL 5.6* ALK PHOS U/L 241* ALTR U/L 30 AST U/L 50* GLUCOSE mg/dL 452* Results from last 7 days Lab Units 10/17/19 1520 INR 1.8* Katalina Jaimes [facility] (for staff use only) Associated attestation - Delores Lopez MD - 10/18/2019 5:39 PM EDT Gastroenterology Nurse Practitioner Attestation I have independently seen and examined the patient with the nurse practitioner. I have reviewed the available labs. I have reviewed the available imaging studies. Physical examination: CONSTITUTIONAL: Appropriate attention to grooming, normal body habitus, NAD HEENT: Normocephalic, atraumatic, nonicteric CARDIAC: regular rate & rhythm. LUNGS: Clear to auscultation anteriorly ABDOMEN: flat, negative hepatosplenomegaly, soft and non-tender. SKIN: No jaundice, rashes NEURO: No asterixis PSYCHIATRIC: Normal insight, AAO x 3, normal affect/mood EXTREMITIES: No evidence of cyanosis, clubbing or edema. I agree with the assessment and plan as outlined below with the following additions/exceptions: 64 year old female with history of alcohol abuse, decompensated cirrhosis presumed 2/2 to alcohol who presents evaluation of ascites and bilateral pleural. Will order chronic liver w/up including AFP, RUQ U/S. Would benefit from LVP now with Albumin as needed. Send for cell count and cultures. Will slowly uptitrate diuretics as tolerated. Please call with questions. Delores Lopez documented in this encounter Inez Turner RN - 10/23/2019 9:35 AM EDT Nursing Notes (unrecognized section and content) Pt has no family present in endoscopy. She has a ring with her. documented in this encounter Sign Off Note - Sumit sEcamilla CNP - 10/24/2019 12:27 PM EDTCDI Query - Priya Nayak - 10/24/2019 11:30 AM EDTQuick Note - Emilie Martinez RN - 10/23/2019 6:22 PM EDT Miscellaneous Notes (unrecog nized section and content) Gastroenterology Sign-Off Discharge Medications: Diuretics Antibiotics Diet Low fat diet. Follow-up Procedures/Testing: EGD 1 year Follow-up Imaging: N/A Follow-up Labs: CBC CMP INR Follow-up Appointment: With Dr. Lopez in 2 weeks. Patient to be contacted with appointment time and date. DELROY GaitanC [facility] [phone] (for staff use only) Noted documentation of Started Rocephin for SBP proph on 10/19/19. Clinical Indicators: Transferred to [facility] 10/17 with 7 days of peripheral swelling and dyspnea and findings of: CT PA found no PE but noted mod-large left and small-mod right pleural effusions, pulmonary HTN, cirrhotic changes and moderate ascites. Na 134, K 3.1, BG 452, Dbili 2.7, Tbili 5.6, Alk Phos 241, WBC 1.97, Plt 30, INR 1.8, A1c 9.6 10/18 Hosp: ...No signs of peritonitis. Started IV Lasix daily, PO Aldactone, consulted GI and IR for diagnostic paracentesis.?Paracentesis 10/18/19 with 350ml out. FLuid studies pending. Started Rocephin for SBP proph. Rocephin 10/18 with end date of 10/25. Indication: spontaneous Bacterial Peritonitis prophylaxis. Paracentesis; Body Fluid Culture: No Growth at 5 days 10/22 GI: -MRI/MRCP (10/19): multiple communicating intra- and intrahepatic ductal cysts to include the suspicious lesion in the left hepatic lobe; type 4 biliary cyst; cirrhosis w/o arterially enhancing lesion; small ascites; moderate left and R pleural effusion Please specify the status of SBP in the progress notes. For Example: Unable to rule out SBP, continue Rocephin SBP was present on admission Continue Rocephin for treatment of (please specify) Other (please specify) Unable to determine Thank you, Priya Nayak RN, [facility] Clinical Crusher Setter [phone] After business hours you may contact Linnea Robledo at [phone] (Weekdays until 10 PM and weekends 8 AM -10 PM) Pt daughter called this evening, she is hoping to get patient to a facility because they do not believe that she can care for herself at home. They have been in contact with [facility] number is [phone]. Daughter is worried that patient be experiencing memory loss and is worried that she is not able to take care of herself, pt has been repaying bills that she has already paid because she forgot and is not remembering conversations that she is having with family. Pt daughter name is jason and can be reached at [phone]. Associated Problem(s): Decompensated hepatic cirrhosis (HCC) 64 year old female PMHx alcohol abuse, cirrhosis (diagnosed 10yrs ago), COPD who presented to [facility] with LE swelling and SOB. Found to have cirrhosis with ascites, b/l pleural effusions, and multiple lab abnormalities. Transferred to [facility] and GI consulted for further evaluation of decompensated cirrhosis. Reports sobriety x 4 years. -decompensated ETOH cirrhosis w/ thrombocytopenia and ascites -MELD-NA: 22 -Viral / AIH negative. No e/o iron / copper overload. -s/p paracentesis (10/17): 350 ml removed, no SBP. High SAAG, low protein c/w pHTN. On aldactone 100 mg daily and lasix 40mg IV daily -MRI/MRCP (10/19): multiple communicating intra- and intrahepatic ductal cysts to include the suspicious lesion in the left hepatic lobe; type 4 biliary cyst; cirrhosis w/o arterially enhancing lesion; small ascites; moderate left and R pleural effusion -AFP: normal -CTPA ([facility]): neg PE; moderate b/l pleural effusions L>R, e/o pulmonary HTN, cirrhosis w splenomegaly, moderate ascites, and hepatic cysts -RUQ U/S with 1 cm hypoechoic lesion and PV thrombus -S/p EGD 10/22 showed Grade 1 and small EV, pHTN gastropathy Imp/Plans: -EtOH cirrhosis. -On Diuretics; would continue as ordered. No SBP in setting of bloody tap, can complete entire course of antibiotics. Low Na diet. Repeat EGD in 1 year to reassess EV, no plan for NSBB. No HE noted. Will arrange OP follow up for liver cirrhosis management. No further inpatient recommendations at this time, we are available as needed. documented in this encounter Ordered Prescriptions (unrec ognized section and content) Prescription Sig Dispensed Refills Start Date End Da te lactulose (CHRONULAC) 10 GM/15ML solution Take 30 mLs by mouth 2 times daily 1 07/07/2020 cefTRIAXone (ROCEPHIN) infusionIndications:Ac ronit cystitis without hematuria Infuse 1,000 mg intravenously every 24 hours for 7 days Compound per protocol Flush IV per protocol 7 g 0 07/07/2020 07/14/2020 Prescription Sig Dispensed Refills Start Date End Da te enoxaparin Sodium (LOVENOX) 30 MG/0.3ML injection Inject 0.3 mLs into the skin daily for 14 days 14 each 0 07/12/2022 07/26/2022 HYDROcodone-acetaminophe n (NORCO) 5-325 MG per tabletIndications:Closed fracture of left tibial plateau, initial encounter Take 2 tablets by mouth every 6 hours as needed for Pain for up to 5 days. Max Daily Amount: 8 tablets 40 tablet 0 07/11/2022 07/16/2022 Care Teams (unrecognized sec tion and content) Team Status: Active Member Role Status Dates Marcelo Ann , DO Primary Care Provider Active Team Status: Active Member Role Status Dates Marcelo Ann , DO Primary Care Provider Active Rc Saravia MD Referring Provider Active Xander Metcalf II, Attending Provider Active Team Status: Inactive Member Role Status Dates Marcelo Ann DO Primary Care Provider Active Sharath Marques DO Admit Provider Active Diamond Angeles MD Other Provider Active Kadeem Saenz MD Attending Provider Active Team Status: Inactive Member Role Status Dates Marcelo Ann DO Primary Care Provider Active Karel Moralez II, MD Attending Provider Active Team Status: Active Member Role Status Dates Marcelo Ann , Primary Care Provider Active Niko Lazo MD Attending Provider Active Rc Saravia MD Referring Provider Active Treater Helper Relationship Specialty Start Date End Date Maryjane Momin MD [address] [place], [place] [id number] PCP - General Family Medicine 07/06/20 07/10/22 Scheduled Active and Recently Administ ered Medications (unrecognized section and content) Medication Order 07/09/2022 07/10/2022 07/11/2022 acetaminophen (TYLENOL) tablet 650 mg (COMPLETED) 650 mg, Oral, ONCE, 1 dose, On 07/10/22 at 1130, Maximum dose of acetaminophen is 4000 mg from all sources in 24 hours. 1145 (Given - Provider: Leslie Mahan RN) enoxaparin Sodium (LOVENOX) injection 30 mg 30 mg, SubCUTAneous, DAILY, First dose on 07/10/22 at 1915, Until Discontinued, Indication of Use: Prophylaxis-DVT/PE 2144 (Not Given - Provider: Cata Yung RN - Reason: Patient/family refused) 0825 (Given - Provider: Breanna Dorsey RN) HYDROcodone-acetaminophen (NORCO) 5-325 MG per tablet 1 tablet (COMPLETED) 1 tablet, Oral, ONCE, 1 dose, On 07/10/22 at 1245, Maximum dose of acetaminophen is 4000 mg from all sources in 24 hours. 1242 (Given - Provider: Jayme Macias RN) insulin glargine (LANTUS) injection vial 15 Units 15 Units, SubCUTAneous, NIGHTLY, First dose on 07/10/22 at 2100, Until Discontinued 2137 (Given - Provider: Cata Yung RN) 2099 (Due) insulin lispro (HUMALOG) injection vial 0-4 Units 0-4 Units, SubCUTAneous, NIGHTLY, First dose on 07/10/22 at 2100, Until Discontinued, If continuous tube feedings/TPN/NPO, give correction dose based on result, no reduction in dose. If eating or bolus tube feeding: Corrective Bedtime Algorithm Glucose: Dose: 70-299 No Insulin 300-349 4 Units Over 349 4 Units and notify physician 2144 (Not Given - Provider: Cata Yung RN - Reason: Order parameters not met - Comment: 202) 2099 (Due) insulin lispro (HUMALOG) injection vial 0-8 Units 0-8 Units, SubCUTAneous, 3 TIMES DAILY WITH MEALS, First dose on 07/11/22 at 0800, Until Discontinued, Medium Dose Corrective Algorithm Glucose: Dose: 70-199 No Insulin 200-249 2 Units 250-299 4 Units 300-349 6 Units Over 349 8 Units and notify physician 08 (Not Given - Provider: Breanna Dorsey RN - Reason: Order parameters not met)1133 (Not Given - Provider: Tiffanie Arreaga RN - Reason: Order parameters not met)1634 (Given - Provider: Tiffanie Arreaga RN) lactulose (CHRONULAC) 10 GM/15ML solution 20 g 20 g, Oral, 2 TIMES DAILY, First dose on 07/10/22 at 2100, Until Discontinued 2137 (Given - Provider: Cata Yugn RN) 0828 (Not Given - Provider: Breanna Dorsey RN - Reason: Patient/family refused)2099 (Due) melatonin tablet 3 mg 3 mg, Oral, NIGHTLY, First dose on 07/10/22 at 2100, Until Discontinued 2137 (Given - Provider: Cata Yung RN) 2099 (Due) morphine injection 4 mg (COMPLETED) 4 mg, IntraVENous, ONCE, 1 dose, On 07/10/22 at 1415, If oral and IV narcotics ordered, use oral first and only use IV if oral is ineffective or cannot take oral. Do Not give oral and IV within 1 hour of each other unless specifically ordered. 142 (Given - Provider: Shobha Cornell RN) multivitamin 1 tablet 1 tablet, Oral, DAILY, First dose on 07/10/22 at 1915, Until Discontinued 2010 (Not Given - Provider: Cata Yung RN - Reason: Patient took at home) 825 (Given - Provider: Breanna Dorsey RN) ondansetron (ZOFRAN) injection 4 mg (COMPLETED) 4 mg, IntraVENous, ONCE, 1 dose, On 07/10/22 at 1415 142 (Given - Provider: Shobha Cornell RN) polyethylene glycol (GLYCOLAX) packet 17 g 17 g, Oral, DAILY, First dose on 07/10/22 at 1915, Until Discontinued 2011 (Not Given - Provider: Cata Yung RN - Reason: Patient/family refused) 827 (Not Given - Provider: Breanna Dorsey RN - Reason: Order parameters not met) rifAXIMin (XIFAXAN) tablet 550 mg 550 mg, Oral, 2 TIMES DAILY, First dose on Mon07/11/22 at 1145, Until Discontinued 1135 (Given - Provid er: Tiffanie Arreaga RN)2099 (Due) sodium chloride flush 0.9 % injection 5-40 mL 5-40 mL, IntraVENous, EVERY 12 HOURS SCHEDULED (2 times per day), First dose on 07/10/22 at 2100, Until Discontinued, For Line Patency: Peripheral IV = 5 mL; Midline or Central Line = 10 mL/lumen. If following IV push medication, administer flush at same rate as the IV push. Flush volume is determined by type of infusion therapy being given. For non-viscous solutions use: Peripheral IV = 5 mL Midline or Central Line = 10 mL/lumen For viscous solutions (i.e. blood components, parenteral nutrition, contrast media, or after obtaining blood sample) use: Peripheral IV = 10 mL Midline or Central Line = 20 mL/lumen 2152 (Given - Provider: Cata Yung, ZEHRA) 826 (Given - Provider: Breanna Dorsey, RN)2099 (Due) vitamin D (CHOLECALCIFEROL) capsule 5,000 Units 5,000 Units, Oral, DAILY, First dose on 07/10/22 at 1915, Until Discontinued 2011 (Not Given - Provider: Cata Yung RN - Reason: Patient took at home) 08 (Given - Provider: Breanna Dorsey, RN) PRN Medication Order 07/09/2022 07/10/2022 07/11/2022 0.9 % sodium chloride infusion IntraVENous, at 5-250 mL/hr, PRN, if patient receiving piggyback infusions and maintenance fluids are not ordered OR KVO fluids to protect IV site / prevent frequent line interruptions/ long duration, Starting on 07/10/22 at 1851, For piggyback infusion, administer at same rate as piggyback for a total of 25 mL. Enter 25 mL into dose field and piggyback rate into rate field of order. If piggyback is infusing at a rate less than 100 mL/hr, enter 25 mL into dose field and 100 mL/hr into rate field of order. For KVO fluids, enter rate of 20 mL/hr or less into rate field of order. acetaminophen (TYLENOL) suppository 650 mg(Linked Group 1) 650 mg, Rectal, EVERY 6 HOURS PRN, Starting on 07/10/22 at 1851, Until Discontinued, Pain Mild (1-3), Fever, For temp greater than 100.4 F (38 C), Administer if oral route cannot be used. acetaminophen (TYLENOL) tablet 650 mg(Linked Group 1) 650 mg, Oral, EVERY 6 HOURS PRN, Starting on 07/10/22 at 1851, Until Discontinued, Pain Mild (1-3), Fever, For temp greater than 100.4 F (38 C), Maximum dose of acetaminophen is 4000 mg from all sources in 24 hours. dextrose 10 % infusion IntraVENous, at 100 mL/hr, CONTINUOUS PRN, if blood glucose remains LESS THAN 70 mg/dL after 2 dextrose 10% intravenous boluses or administration of glucagon, Starting on 07/10/22 at 1909, If blood glucose fails to stabilize after 2 dextrose 10% intravenous boluses or glucagon administration, start dextrose 10% infusion at 100 mL/hour and repeat blood glucose at 30 and 60 minutes. If blood glucose is GREATER THAN 70 mg/dL after 60 minutes, discontinue dextrose 10% infusion. dextrose bolus 10% 125 mL(Linked Group 2) 125 mL, IntraVENous, at 937.5 mL/hr, Administer over 8 Minutes, PRN, Other, Blood glucose 40 - 69 mg/dL and patient NOT ALERT or NPO, Starting on 07/10/22 at 1909, Repeat blood glucose in 15 minutes. If blood glucose remains LESS THAN 70 mg/dL, repeat treatment and recheck blood glucose in 15 minutes x 2. If using glycemic management system, dose as instructed per system. If blood glucose remains LESS THAN 70 mg/dL after 2 intravenous boluses start dextrose 10% at 100 mL/hour and notify provider. dextrose bolus 10% 250 mL(Linked Group 2) 250 mL, IntraVENous, at 937.5 mL/hr, Administer over 16 Minutes, PRN, Other, Blood glucose LESS THAN 40 mg/dL and patient NOT ALERT or NPO, Starting on Mon07/10/22 at 1909, Repeat blood glucose in 15 minutes. If blood glucose remains LESS THAN 70 mg/dL, repeat treatment and recheck blood glucose in 15 minutes x 2. If using glycemic management system, dose as instructed per system. If blood glucose remains LESS THAN 70 mg/dL after 2 intravenous boluses start dextrose 10% at 100 mL/hour and notify provider. glucagon (rDNA) injection 1 mg 1 mg, SubCUTAneous, PRN, Starting on 07/10/22 at 1909, Until Discontinued, Low blood sugar, Blood glucose LESS THAN 70 mg/dL and patient NOT ALERT or NPO and does not have IV access., After administration, attempt intravenous access and start dextrose 10% at 100 mL/hr. Repeat blood glucose in 15 minutes x 2 and notify provider. glucose chewable tablet 16 g 16 g (4 tablet), Oral, PRN, Starting on Mon07/10/22 at 1909, Until Discontinued, Low blood sugar, If blood glucose is LESS THAN 70 mg/dL and patient is alert and tolerating oral. Give 4 tablets (16g) Repeat blood glucose in 15 minutes. If blood glucose is LESS THAN 70 mg/dL, repeat treatment and recheck blood glucose in 15 minutes x 2. If blood glucose remains LESS THAN 70 mg/dL, notify provider. HYDROcodone-acetaminophen (NORCO) 5-325 MG per tablet 2 tablet 2 tablet, Oral, EVERY 6 HOURS PRN, Starting on 07/10/22 at 1851, Until Discontinued, Pain Moderate (4-6), Pain Severe (7-10), Maximum dose of acetaminophen is 4000 mg from all sources in 24 hours. 1907 (Given - Provider: Cata Yung, RN) 0210 (Given - Provider: Cata Yung, RN)0826 (Given - Provider: Breanna Dorsey, ZEHRA)1438 (Given - Provider: Tiffanie Arreaga, ZEHRA) ondansetron (ZOFRAN) injection 4 mg(Linked Group 3) 4 mg, IntraVENous, EVERY 6 HOURS PRN, Starting on 07/10/22 at 1851, Until Discontinued, Nausea, Vomiting, Administer if oral route cannot be used. ondansetron (ZOFRAN-ODT) disintegrating tablet 4 mg(Linked Group 3) 4 mg, Oral, EVERY 8 HOURS PRN, Starting on 07/10/22 at 1851, Until Discontinued, Nausea, Vomiting polyethylene glycol (GLYCOLAX) packet 17 g 17 g, Oral, DAILY PRN, Starting on 07/10/22 at 1851, Until Discontinued, Constipation, First line therapy for constipation sodium chloride flush 0.9 % injection 10 mL 10 mL, IntraVENous, PRN, Starting on 07/10/22 at 1851, Until Discontinued, Line Care, After every IV line use Linked Groups Order Group 1: acetaminophen (TYLENOL) tablet 650 mgJump to med 650 mg, Oral, EVERY 6 HOURS PRN, Starting on 07/10/22 at 1851, Until Discontinued, Pain Mild (1-3), Fever, For temp greater than 100.4 F (38 C)
Maximum dose of acetaminophen is 4000 mg from all sources in 24 hours.
Or acetaminophen (TYLENOL) suppository 650 mgJump to med 650 mg, Rectal, EVERY 6 HOURS PRN, Starting on 07/10/22 at 1851, Until Discontinued, Pain Mild (1-3), Fever, For temp greater than 100.4 F (38 C)
Administer if oral route cannot be used.
Group 2: dextrose bolus 10% 125 mLJump to med 125 mL, IntraVENous, at 937.5 mL/hr, Administer over 8 Minutes, PRN, Other, Blood glucose 40 - 69 mg/dL and patient NOT ALERT or NPO, Starting on 07/10/22 at 1909
Repeat blood glucose in 15 minutes. If blood glucose remains LESS THAN 70 mg/dL, repeat treatment and recheck blood glucose in 15 minutes x 2. If using glycemic management system, dose as instructed per system. If blood glucose remains LESS THAN 70 mg/dL after 2 intravenous boluses start dextrose 10% at 100 mL/hour and notify provider.
Or dextrose bolus 10% 250 mLJump to med 250 mL, IntraVENous, at 937.5 mL/hr, Administer over 16 Minutes, PRN, Other, Blood glucose LESS THAN 40 mg/dL and patient NOT ALERT or NPO, Starting on 07/10/22 at 1909
Repeat blood glucose in 15 minutes. If blood glucose remains LESS THAN 70 mg/dL, repeat treatment and recheck blood glucose in 15 minutes x 2. If using glycemic management system, dose as instructed per system. If blood glucose remains LESS THAN 70 mg/dL after 2 intravenous boluses start dextrose 10% at 100 mL/hour and notify provider.
Group 3: ondansetron (ZOFRAN-ODT) disintegrating tablet 4 mgJump to med 4 mg, Oral, EVERY 8 HOURS PRN, Starting on 07/10/22 at 1851, Until Discontinued, Nausea, Vomiting Or ondansetron (ZOFRAN) injection 4 mgJump to med 4 mg, IntraVENous, EVERY 6 HOURS PRN, Starting on 07/10/22 at 1851, Until Discontinued, Nausea, Vomiting
Administer if oral route cannot be used.
Goals (unrecognized section and content) Goals may be documented in a n alternate section FOR RECORDS PERTAINING TO PATIENTS WHO ARE OR HAVE BEEN ENROLLED IN A CHEMICAL DEPENDENCY/SUBSTANCEABUSE PROGRAM, SOME INFORMATION MAY BE OMITTED. This clinical summary was aggregated from multiple sources. Caution should be exercised in using it in the provision of clinical care. This summary normalizes information from multiple sources, and as a consequence, information in this document may materially change the coding, format and clinical context of patient data. In addition, data may be omitted in some cases. CLINICAL DECISIONS SHOULD BE BASED ON THE PRIMARY CLINICAL RECORDS. [employer] [facility]. provides no warranty or guarantee of the accuracy or completeness of information in this document.
--- NOTE | 2023-04-14 19:44 | XR_ITS ---
The [address] [address] Patient Name: ORVILLE JASSO MRN: [id number] date: 1955 Sex: F Assigned Patient Location: ER Current Patient Location: ER Accession/Order Number: [id number] Exam Date: 04/14/2023 20:18 Report Date: 04/14/2023 21:14 At the request of: KENNY BALES Procedure: XR hip RT 2V w/ pelvis EXAM: XR hip RT 2V w/ pelvis HISTORY: right hip pain COMPARISON: None. TECHNIQUE: 3 views right hip FINDINGS: There is an angulated fracture of the right intertrochanteric femur. The femoral acetabular joint appears congruent. Postsurgical changes of the left proximal femur are partially imaged. XR/XR hip RT 2V w/ pelvis IMPRESSION: Mildly angulated right intertrochanteric femur fracture. Electronically authenticated by: MINISTERIO ESPINOZA Date: 04/14/2023 21:14
--- NOTE | 2023-04-14 19:44 | CT_ITS ---
The [address] [address] Patient Name: ORVILLE JASSO MRN: [id number] date: 1955 Sex: F Assigned Patient Location: ED.MAIN Current Patient Location: ER Accession/Order Number: [id number] Exam Date: 04/14/2023 20:30 Report Date: 04/14/2023 21:11 At the request of: KENNY BALES Procedure: CT head/brain wo con EXAM: CT head/brain wo con HISTORY: fall head injury COMPARISON: None. TECHNIQUE: Axial CT scans through the head were obtained without IV contrast administration. Dose reduction techniques were achieved by using: automated exposure control and/or adjustment of mA and /or kV according to patient size and/or use of iterative reconstruction technique. FINDINGS: There is no evidence of acute intracranial hemorrhage or abnormal extra-axial fluid collection. No mass effect or midline shift is seen. There is no evidence of large acute territorial infarction. There is no hydrocephalus. Mild enlarged ventricles and sulci, consistent with age appropriate cerebral atrophy. To the limit of CT, the posterior fossa appears unremarkable. No definite acute fracture is identified. Soft tissues are unremarkable. The visualized orbits show no abnormality. There is small air-fluid level within the right sphenoid sinus. Mastoid air cells are clear. CT/CT head/brain wo con IMPRESSION: No CT evidence of acute intracranial abnormality. Incidental note of small layering fluid within the right sphenoid sinus. Recommend clinical correlation for acute sinusitis. Electronically authenticated by: ANTHONY CUTLERU Date: 04/14/2023 21:11
--- NOTE | 2023-04-14 19:44 | ECG_ITS ---
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
--- NOTE | 2023-04-14 19:44 | CT_ITS ---
[address] [address] Patient Name: ORVILLE JASSO MRN: [id number] date: 1955 Sex: F Assigned Patient Location: ED.MAIN Current Patient Location: Accession/Order Number: [id number] Exam Date: 04/14/2023 20:30 Report Date: 04/14/2023 21:17 At the request of: KENNY BALES Procedure: CT cervical spine wo con EXAMINATION: CT cervical spine wo con TECHNIQUE: Axial CT images were obtained through the cervical spine. Sagittal and coronal reformatted images were also obtained. Dose reduction techniques were achieved by using automated exposure control and/or adjustment of mA and/or kV according to patient size and/or use of iterative reconstruction technique. HISTORY: fall, head injury, (R) hip fx). COMPARISON: None. FINDINGS: Bones: No acute fracture. 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 Alignment: Degenerative grade 1 anterolisthesis of C3 on C4. Mild reversal of lordosis in the lower cervical spine appears degenerative. No traumatic subluxation. Arthritic changes: Severe facet arthritic changes bilaterally from C3 through C7. Disc spaces: No gross disc herniation given limitation of CT scan. Soft tissues: No soft tissue mass or large hematoma. CT/CT cervical spine wo con IMPRESSION: No acute fracture or subluxation. Chronic findings, as above. Electronically authenticated by: IRENE SHANE Date: 04/14/2023 21:17
--- NOTE | 2023-04-14 19:44 | XR_ITS ---
The [place] [id number] Patient Name: ORVILLE JASSO MRN: [id number] date: 1955 Sex: F Assigned Patient Location: ER Current Patient Location: ER Accession/Order Number: [id number] Exam Date: 04/14/2023 20:18 Report Date: 04/14/2023 21:13 At the request of: KENNY BALES Procedure: XR chest 1V EXAM: XR chest 1V TECHNIQUE: Single AP view chest HISTORY: right hip fracture COMPARISON: 10/25/2021 FINDINGS: The heart and mediastinum are unremarkable. No acute pulmonary consolidation. Osseous structures appear intact. XR/XR chest 1V IMPRESSION: No acute findings. Electronically authenticated by: IRENE SHANE Date: 04/14/2023 21:13
--- NOTE | 2023-04-14 19:48 | ED.LOWEXI1 ---
Documented by User: LIZETT Wolfe 04/14/23 21:05 HPI - Extremity Injury (Lower) General Chief Complaint: Extremity Injury, Lower Stated Complaint: hip pain fall Time Seen by Provider: 04/14/23 19:40 Source: patient and medical record Source comment: EMS Mode of arrival: ambulance History of Present Illness HPI Narrative: patient is a 67-year-old female presents from [facility]. Complaining of right hip pain, inability to ambulate. Patient was walking to the bathroom and fell, there is question surrounding possible head injury. She is not on any blood thinning medications. Patient reports fracturing her left hip one year ago, she presents with clinical exam findings concerning for right hip fracture. Patient received fentanyl 100 ?g in route by EMS. Her chief complaint is moderate to severe right hip pain. She has no other concerns at this time. Patient alert to her person and place.unable to recall who performed her left hip surgery or where prior to SNF placement patient is full code,. History of cirrhosis of the liver. MD complaint: Reports hip injury Injury: Right: hip Place: Reports SNF Severity: severe Relieving factors: Reports nothing Exacerbating factors: Reports weight bearing and movement Context: Reports fall Associated symptoms: Denies numbness or tingling Related Data Home Medications Medication Instructions Recorded Confirmed acetaminophen 325 mg capsule 650 mg PO Q6H PRN fever or pain 04/14/23 04/14/23 albuterol sulfate 90 mcg/actuation 2 puff inhalation Q4H PRN 04/14/23 04/14/23 aerosol inhaler shortness of breath or wheezing benzonatate 100 mg capsule 100 mg PO Q8H PRN cough 04/14/23 04/14/23 calcium carbonate 500 mg calcium 1,000 mg PO Q6H PRN indigestion 04/14/23 04/14/23 (1,250 mg) chewable tablet (Calcium 500) celecoxib 100 mg capsule (Celebrex) 100 mg PO Q12H PRN pain 04/14/23 04/14/23 dapagliflozin propanediol 10 mg 10 mg PO DAILY 04/14/23 04/14/23 tablet (Farxiga) dextrose 40 % oral gel (Glucose 15 g PO Q15M PRN hypoglycemia 04/14/23 04/14/23 Gel) dulaglutide 4.5 mg/0.5 mL 4.5 mg subcut QWEEK 04/14/23 04/14/23 subcutaneous pen injector (Trulicity) glucagon 1 mg/mL solution for 1 mg IM Q20M PRN hypoglycemia 04/14/23 04/14/23 injection (GlucaGen Diagnostic Kit) hydrocodone 5 mg-acetaminophen 325 1 tab PO Q6H PRN pain 04/14/23 04/14/23 mg tablet insulin glargine 100 unit/mL 13 unit subcut QPM 04/14/23 04/14/23 subcutaneous solution (Lantus U-100 Insulin) insulin lispro 100 unit/mL 1 sliding scale dose subcut 04/14/23 04/14/23 subcutaneous pen (Humalog KwikPen USEASDIRECTD (U-100) Insulin) ipratropium 0.5 mg-albuterol 3 mg 3 ml inhalation Q6H PRN shortness 04/14/23 04/14/23 (2.5 mg base)/3 mL nebulization of breath or wheezing soln lactulose 20 gram/30 mL oral 30 ml PO QID 04/14/23 04/14/23 solution lidocaine 4 % topical patch 1 patch topical Q12H PRN pain 04/14/23 04/14/23 (Aspercreme (lidocaine)) loperamide 2 mg tablet (Imodium 1 mg PO Q6H PRN loose stool 04/14/23 04/14/23 A-D) magnesium 200 mg tablet 400 mg PO DAILY 04/14/23 04/14/23 melatonin 10 mg capsule 10 mg PO QPM 04/14/23 04/14/23 metformin 500 mg tablet 500 mg PO QAM 04/14/23 04/14/23 midodrine 5 mg tablet 5 mg PO Q8H PRN hypotension 04/14/23 04/14/23 mirtazapine 30 mg tablet (Remeron) 30 mg PO QPM 04/14/23 04/14/23 ondansetron 4 mg disintegrating 4 mg PO Q4H PRN nausea and vomiting 04/14/23 04/14/23 tablet polyethylene glycol 3350 17 gram 17 g PO DAILY PRN constipation 04/14/23 04/14/23 oral powder packet (Miralax) potassium chloride 10 mEq 10 meq PO QPM 04/14/23 04/14/23 tablet,extended release potassium chloride 20 mEq 20 meq PO QAM 04/14/23 04/14/23 tablet,extended release(part/cryst) (Klor-Con M) rifaximin 550 mg tablet (Xifaxan) 550 mg PO BID 04/14/23 04/14/23 spironolactone 25 mg tablet 25 mg PO QAM 04/14/23 04/14/23 Allergies Allergy/AdvReac Type Severity Reaction Status Date / Time bupropion Allergy Severe Verified 04/14/23 19:38 ketamine Allergy Severe Verified 04/14/23 19:38 Review of Systems ROS Constitutional Denies: fever or chills Eyes Denies: change in vision Ears, nose, mouth, and throat Denies: throat pain or neck pain Cardiovascular Denies: chest pain Respiratory Denies: shortness of breath Gastrointestinal Denies: abdominal pain Genitourinary Denies: painful urination Musculoskeletal Reports: extremity pain and joint pain (right hip) Integumentary/Breast Denies: rash Neurological Denies: headache Psychiatric Denies: anxiety or mood swings Allergic/Immunologic Denies: hives [facility] Medical History (Updated 04/14/23 @ 23:29 by Renan Mathew MD) Fracture of right hip ?S72.001A - Fracture of unspecified part of neck of right femur, initial encounter for closed fracture (ICD-10) Vitamin D deficiency ?E55.9 - Vitamin D deficiency, unspecified (ICD-10) Systolic congestive heart failure ?I50.20 - Unspecified systolic (congestive) heart failure (ICD-10) Lack of coordination ?R27.9 - Unspecified lack of coordination (ICD-10) Type 2 diabetes mellitus ?E11.9 - Type 2 diabetes mellitus without complications (ICD-10) Right heart failure ?I50.810 - Right heart failure, unspecified (ICD-10) Other abnormalities of gait and mobility ?R26.89 - Other abnormalities of gait and mobility (ICD-10) Major depressive disorder ?F32.9 - Major depressive disorder, single episode, unspecified (ICD-10) Hypomagnesemia ?E83.42 - Hypomagnesemia (ICD-10) Hepatic failure ?K72.90 - Hepatic failure, unspecified without coma (ICD-10) Hypertension ?I10 - Essential (primary) hypertension (ICD-10) COPD (chronic obstructive pulmonary disease) ?J44.9 - Chronic obstructive pulmonary disease, unspecified (ICD-10) Osteoporosis ?M81.0 - Age-related osteoporosis without current pathological fracture (ICD-10) Vitamin B deficiency ?E53.9 - Vitamin B deficiency, unspecified (ICD-10) Protein calorie malnutrition ?E46 - Unspecified protein-calorie malnutrition (ICD-10) Fracture of left femur ?S72.92XA - Unspecified fracture of left femur, initial encounter for closed fracture (ICD-10) Thrombocythemia ?D75.839 - Thrombocytosis, unspecified (ICD-10) Hypoglycemia ?E16.2 - Hypoglycemia, unspecified (ICD-10) Muscle weakness ?M62.81 - Muscle weakness (generalized) (ICD-10) Iron deficiency anemia ?D50.9 - Iron deficiency anemia, unspecified (ICD-10) Hypokalemia ?E87.6 - Hypokalemia (ICD-10) Hemochromatosis ?E83.119 - Hemochromatosis, unspecified (ICD-10) Alcoholic cirrhosis of liver with ascites ?K70.31 - Alcoholic cirrhosis of liver with ascites (ICD-10) Coagulation deficiency ?D68.9 - Coagulation defect, unspecified (ICD-10) Exam Narrative Exam Narrative: Nurses note and vital signs reviewed and patient is not hypoxic. General: patient lying supine, right leg is shortened and externally rotated. Patient complains of pain with movement, appears calm at rest. Patient is resting comfortably on cart. GCS = 15. Skin: Warm, dry, no pallor noted.no evidence of rash Head: Normocephalic, atraumatic Neck: Supple, trachea mid-line, no tenderness, no lymphadenopathy. Full ROM and no cervical spinal tenderness. The patient has no step-offs or crepitus noted Eyes: PERRLA, EOMI ENT: TM's clear, no hemotympanum detected, no blood in posterior oropharynx Cardiovascular: Regular Rate and Rhythm Respiratory: Patient is in no distress, no accessory muscle use, lungs are clear to auscultation, no wheezing, rales or rhonchi Chest Wall: no tenderness, no flail chest, contusion, abrasion, or signs of trauma. Back: Back has no evidence of trauma, including contusion, abrasion, swelling or ecchymosis. The patient had no evidence of step-offs or creptitace noted. No tenderness to palpation. Musculoskeletal: his right leg is shortened and externally rotated, pain to the right hip joint, left hip unremarkable prior surgical scar noted to the lateral aspect of the left hip. Patient has pulses 1+ posterior tibialis bilateral, motors foot despite pain. Left leg appears unremarkable. GI: Normal bowel sounds, no tenderness to palpation, no masses appreciated. No rebound, guarding, or rigidity noted. Neurological: A&O x4, normal equal software administrator strength, normal speech, normal coordination, normal motor- within limitations of suspected right hip fracture, normal sensory. Psychiatric: Cooperative Constitutional Vital Signs, click to edit/add: Last Vital Signs Temp 97.7 F 04/14/23 19:32 Pulse 95 H 04/14/23 19:32 Resp 18 04/14/23 19:32 BP 127/79 04/14/23 19:32 Pulse Ox 95 04/14/23 19:32 O2 Del Method Room Air 04/14/23 19:32 Course Vital Signs Vital signs: Vital Signs Temperature 97.7 F 04/14/23 19:32 Pulse Rate 95 H 04/14/23 19:32 Respiratory Rate 18 04/14/23 19:32 Blood Pressure 127/79 04/14/23 19:32 Pulse Oximetry 95 04/14/23 19:32 Oxygen Delivery Method Room Air 04/14/23 19:32 Temperature 97.7 F 04/14/23 19:32 Pulse Rate 95 H 04/14/23 19:32 Respiratory Rate 18 04/14/23 19:32 Blood Pressure 127/79 04/14/23 19:32 Pulse Oximetry 95 04/14/23 19:32 Oxygen Delivery Method Room Air 04/14/23 19:32 MDM - Extremity Injury (Lower) MDM Narrative Medical decision making narrative: clinical exam suspicious for right hip fracture, x-rays pending. Preoperative clearance chest x-ray EKG and labs performed, given concern of possible head injury with fall a CT of the head and neck were ordered. Patient appears comfortable at rest, morphine ordered may be given in 2 mg increments with close eye on her blood pressure. patient medicated with 50 ?g of fentanyl prior to imaging studies, patient notes when she has not moved her pain is very minimal, increased pain with any movement. Patient's hip x-ray preliminary shows intratrochanteric fracture. We will await head/ neck CT report before consultation to ortho on need for admission, did speak with Dr. Whit Townsend who is agreeable to admit if Dr. Duran accepting .. ECG Data Attestation: I personally reviewed and interpreted this ECG as follows: Interpretation: EKG interpretation: Emergency Department physician interpretation, normal sinus [id number] bpm, no ectopy, no ST segment elevation, normal axis. Discharge Plan Discharge Chief Complaint: Extremity Injury, Lower Clinical Impression: Closed head injury, Thrombocytopenia, Closed fracture of right hip, Chronic hypotension, Cirrhosis Patient Disposition: [facility] Discharge Location: [facility] Prescriptions / Home Meds: No Action acetaminophen 325 mg capsule 650 mg PO Q6H PRN (Reason: fever or pain) albuterol sulfate 90 mcg/actuation HFA aerosol inhaler 2 puff inhalation Q4H PRN (Reason: shortness of breath or wheezing) celecoxib [Celebrex] 100 mg capsule 100 mg PO Q12H PRN (Reason: pain) Farxiga 10 mg tablet 10 mg PO DAILY GlucaGen Diagnostic Kit 1 mg/mL recon soln 1 mg IM Q20M PRN (Reason: hypoglycemia) Rx Instructions: until target blood sugar attained dextrose [Glucose Gel] 40 % gel 15 g PO Q15M PRN (Reason: hypoglycemia) Rx Instructions: until symptoms of low blood sugar are controlled insulin lispro [Humalog KwikPen Insulin] 100 unit/mL insulin pen 1 sliding scale dose subcut USEASDIRECTD hydrocodone-acetaminophen 5-325 mg tablet 1 tab PO Q6H PRN (Reason: pain) loperamide [Imodium A-D] 2 mg tablet 1 mg PO Q6H PRN (Reason: loose stool) ipratropium-albuterol 0.5 mg-3 mg(2.5 mg base)/3 mL solution for nebulization 3 ml inhalation Q6H PRN (Reason: shortness of breath or wheezing) insulin glargine [Lantus U-100 Insulin] 100 unit/mL solution 13 unit subcut QPM magnesium 200 mg tablet 400 mg PO DAILY melatonin 10 mg capsule 10 mg PO QPM metformin 500 mg tablet 500 mg PO QAM midodrine 5 mg tablet 5 mg PO Q8H PRN (Reason: hypotension) Rx Instructions: do not exceed 3 doses per 24 hrs potassium chloride 10 mEq tablet extended release 10 meq PO QPM potassium chloride [Klor-Con M20] 20 mEq tablet,ER particles/crystals 20 meq PO QAM mirtazapine [Remeron] 30 mg tablet 30 mg PO QPM spironolactone 25 mg tablet 25 mg PO QAM benzonatate 100 mg capsule 100 mg PO Q8H PRN (Reason: cough) Trulicity 4.5 mg/0.5 mL pen injector 4.5 mg subcut QWEEK calcium carbonate [Calcium 500] 500 mg calcium (1,250 mg) tablet,chewable 1,000 mg PO Q6H PRN (Reason: indigestion) Xifaxan 550 mg tablet 550 mg PO BID lactulose 20 gram/30 mL solution 30 ml PO QID lidocaine [Aspercreme (lidocaine)] 4 % adhesive patch,medicated 1 patch topical Q12H PRN (Reason: pain) Patient Comments: right shoulder Rx Instructions: may leave on for up to 12 hrs polyethylene glycol 3350 [Miralax] 17 gram powder in packet 17 g PO DAILY PRN (Reason: constipation) ondansetron 4 mg tablet,disintegrating 4 mg PO Q4H PRN (Reason: nausea and vomiting) Rx Instructions: give 1st dose 30min before emetogenic chemo Referrals: [facility] [Primary Care Provider] - 1 week Documented by User: Renan Mathew MD 04/14/23 23:29 HPI - Extremity Injury (Lower) General Chief Complaint: Extremity Injury, Lower Stated Complaint: hip pain fall Time Seen by Provider: 04/14/23 19:40 Related Data Home Medications Medication Instructions Recorded Confirmed acetaminophen 325 mg capsule 650 mg PO Q6H PRN fever or pain 04/14/23 04/14/23 albuterol sulfate 90 mcg/actuation 2 puff inhalation Q4H PRN 04/14/23 04/14/23 aerosol inhaler shortness of breath or wheezing benzonatate 100 mg capsule 100 mg PO Q8H PRN cough 04/14/23 04/14/23 calcium carbonate 500 mg calcium 1,000 mg PO Q6H PRN indigestion 04/14/23 04/14/23 (1,250 mg) chewable tablet (Calcium 500) celecoxib 100 mg capsule (Celebrex) 100 mg PO Q12H PRN pain 04/14/23 04/14/23 dapagliflozin propanediol 10 mg 10 mg PO DAILY 04/14/23 04/14/23 tablet (Farxiga) dextrose 40 % oral gel (Glucose 15 g PO Q15M PRN hypoglycemia 04/14/23 04/14/23 Gel) dulaglutide 4.5 mg/0.5 mL 4.5 mg subcut QWEEK 04/14/23 04/14/23 subcutaneous pen injector ([employer]) glucagon 1 mg/mL solution for 1 mg IM Q20M PRN hypoglycemia 04/14/23 04/14/23 injection (GlucaGen Diagnostic Kit) hydrocodone 5 mg-acetaminophen 325 1 tab PO Q6H PRN pain 04/14/23 04/14/23 mg tablet insulin glargine 100 unit/mL 13 unit subcut QPM 04/14/23 04/14/23 subcutaneous solution (Lantus U-100 Insulin) insulin lispro 100 unit/mL 1 sliding scale dose subcut 04/14/23 04/14/23 subcutaneous pen (Humalog KwikPen USEASDIRECTD (U-100) Insulin) ipratropium 0.5 mg-albuterol 3 mg 3 ml inhalation Q6H PRN shortness 04/14/23 04/14/23 (2.5 mg base)/3 mL nebulization of breath or wheezing soln lactulose 20 gram/30 mL oral 30 ml PO QID 04/14/23 04/14/23 solution lidocaine 4 % topical patch 1 patch topical Q12H PRN pain 04/14/23 04/14/23 (Aspercreme (lidocaine)) loperamide 2 mg tablet (Imodium 1 mg PO Q6H PRN loose stool 04/14/23 04/14/23 A-D) magnesium 200 mg tablet 400 mg PO DAILY 04/14/23 04/14/23 melatonin 10 mg capsule 10 mg PO QPM 04/14/23 04/14/23 metformin 500 mg tablet 500 mg PO QAM 04/14/23 04/14/23 midodrine 5 mg tablet 5 mg PO Q8H PRN hypotension 04/14/23 04/14/23 mirtazapine 30 mg tablet (Remeron) 30 mg PO QPM 04/14/23 04/14/23 ondansetron 4 mg disintegrating 4 mg PO Q4H PRN nausea and vomiting 04/14/23 04/14/23 tablet polyethylene glycol 3350 17 gram 17 g PO DAILY PRN constipation 04/14/23 04/14/23 oral powder packet (Miralax) potassium chloride 10 mEq 10 meq PO QPM 04/14/23 04/14/23 tablet,extended release potassium chloride 20 mEq 20 meq PO QAM 04/14/23 04/14/23 tablet,extended release(part/cryst) (Klor-Con M) rifaximin 550 mg tablet (Xifaxan) 550 mg PO BID 04/14/23 04/14/23 spironolactone 25 mg tablet 25 mg PO QAM 04/14/23 04/14/23 Allergies Allergy/AdvReac Type Severity Reaction Status Date / Time bupropion Allergy Severe Verified 04/14/23 19:38 ketamine Allergy Severe Verified 04/14/23 19:38 [facility] Medical History (Updated 04/14/23 @ 23:29 by Renan Mathew MD) Fracture of right hip ?S72.001A - Fracture of unspecified part of neck of right femur, initial encounter for closed fracture (ICD-10) Vitamin D deficiency ?E55.9 - Vitamin D deficiency, unspecified (ICD-10) Systolic congestive heart failure ?I50.20 - Unspecified systolic (congestive) heart failure (ICD-10) Lack of coordination ?R27.9 - Unspecified lack of coordination (ICD-10) Type 2 diabetes mellitus ?E11.9 - Type 2 diabetes mellitus without complications (ICD-10) Right heart failure ?I50.810 - Right heart failure, unspecified (ICD-10) Other abnormalities of gait and mobility ?R26.89 - Other abnormalities of gait and mobility (ICD-10) Major depressive disorder ?F32.9 - Major depressive disorder, single episode, unspecified (ICD-10) Hypomagnesemia ?E83.42 - Hypomagnesemia (ICD-10) Hepatic failure ?K72.90 - Hepatic failure, unspecified without coma (ICD-10) Hypertension ?I10 - Essential (primary) hypertension (ICD-10) COPD (chronic obstructive pulmonary disease) ?J44.9 - Chronic obstructive pulmonary disease, unspecified (ICD-10) Osteoporosis ?M81.0 - Age-related osteoporosis without current pathological fracture (ICD-10) Vitamin B deficiency ?E53.9 - Vitamin B deficiency, unspecified (ICD-10) Protein calorie malnutrition ?E46 - Unspecified protein-calorie malnutrition (ICD-10) Fracture of left femur ?S72.92XA - Unspecified fracture of left femur, initial encounter for closed fracture (ICD-10) Thrombocythemia ?D75.839 - Thrombocytosis, unspecified (ICD-10) Hypoglycemia ?E16.2 - Hypoglycemia, unspecified (ICD-10) Muscle weakness ?M62.81 - Muscle weakness (generalized) (ICD-10) Iron deficiency anemia ?D50.9 - Iron deficiency anemia, unspecified (ICD-10) Hypokalemia ?E87.6 - Hypokalemia (ICD-10) Hemochromatosis ?E83.119 - Hemochromatosis, unspecified (ICD-10) Alcoholic cirrhosis of liver with ascites ?K70.31 - Alcoholic cirrhosis of liver with ascites (ICD-10) Coagulation deficiency ?D68.9 - Coagulation defect, unspecified (ICD-10) Exam Constitutional Vital Signs, click to edit/add: Last Vital Signs Temp 97.7 F 04/14/23 19:32 Pulse 95 H 04/14/23 19:32 Resp 18 04/14/23 19:32 BP 127/79 04/14/23 19:32 Pulse Ox 95 04/14/23 19:32 O2 Del Method Room Air 04/14/23 19:32 Course Vital Signs Vital signs: Vital Signs Temperature 97.7 F 04/14/23 19:32 Pulse Rate 95 H 04/14/23 19:32 Respiratory Rate 18 04/14/23 19:32 Blood Pressure 127/79 04/14/23 19:32 Pulse Oximetry 95 04/14/23 19:32 Oxygen Delivery Method Room Air 04/14/23 19:32 Temperature 97.7 F 04/14/23 19:32 Pulse Rate 95 H 04/14/23 19:32 Respiratory Rate 18 04/14/23 19:32 Blood Pressure 127/79 04/14/23 19:32 Pulse Oximetry 95 04/14/23 19:32 Oxygen Delivery Method Room Air 04/14/23 19:32 MDM - Extremity Injury (Lower) MDM Narrative Medical decision making narrative: clinical exam suspicious for right hip fracture, x-rays pending. Preoperative clearance chest x-ray EKG and labs performed, given concern of possible head injury with fall a CT of the head and neck were ordered. Patient appears comfortable at rest, morphine ordered may be given in 2 mg increments with close eye on her blood pressure. patient medicated with 50 ?g of fentanyl prior to imaging studies, patient notes when she has not moved her pain is very minimal, increased pain with any movement. Patient's hip x-ray preliminary shows intratrochanteric fracture. We will await head/ neck CT report before consultation to ortho on need for admission, did speak with Dr. Whit Townsend who is agreeable to admit if Dr. Duran accepting .. discussed patient's history with Dr Duran and he did not feel she was an appropriate candidate for admission here. Discussed with orthopedics and hospitalist at [facility] and patient accepted in transfer Discharge Plan Discharge Chief Complaint: Extremity Injury, Lower Clinical Impression: Closed head injury, Thrombocytopenia, Closed fracture of right hip, Chronic hypotension, Cirrhosis Patient Disposition: [facility] Discharge Location: [facility] Prescriptions / Home Meds: No Action acetaminophen 325 mg capsule 650 mg PO Q6H PRN (Reason: fever or pain) albuterol sulfate 90 mcg/actuation HFA aerosol inhaler 2 puff inhalation Q4H PRN (Reason: shortness of breath or wheezing) celecoxib [Celebrex] 100 mg capsule 100 mg PO Q12H PRN (Reason: pain) Farxiga 10 mg tablet 10 mg PO DAILY GlucaGen Diagnostic Kit 1 mg/mL recon soln 1 mg IM Q20M PRN (Reason: hypoglycemia) Rx Instructions: until target blood sugar attained dextrose [Glucose Gel] 40 % gel 15 g PO Q15M PRN (Reason: hypoglycemia) Rx Instructions: until symptoms of low blood sugar are controlled insulin lispro [Humalog KwikPen Insulin] 100 unit/mL insulin pen 1 sliding scale dose subcut USEASDIRECTD hydrocodone-acetaminophen 5-325 mg tablet 1 tab PO Q6H PRN (Reason: pain) loperamide [Imodium A-D] 2 mg tablet 1 mg PO Q6H PRN (Reason: loose stool) ipratropium-albuterol 0.5 mg-3 mg(2.5 mg base)/3 mL solution for nebulization 3 ml inhalation Q6H PRN (Reason: shortness of breath or wheezing) insulin glargine [Lantus U-100 Insulin] 100 unit/mL solution 13 unit subcut QPM magnesium 200 mg tablet 400 mg PO DAILY melatonin 10 mg capsule 10 mg PO QPM metformin 500 mg tablet 500 mg PO QAM midodrine 5 mg tablet 5 mg PO Q8H PRN (Reason: hypotension) Rx Instructions: do not exceed 3 doses per 24 hrs potassium chloride 10 mEq tablet extended release 10 meq PO QPM potassium chloride [Klor-Con M20] 20 mEq tablet,ER particles/crystals 20 meq PO QAM mirtazapine [Remeron] 30 mg tablet 30 mg PO QPM spironolactone 25 mg tablet 25 mg PO QAM benzonatate 100 mg capsule 100 mg PO Q8H PRN (Reason: cough) Trulicity 4.5 mg/0.5 mL pen injector 4.5 mg subcut QWEEK calcium carbonate [Calcium 500] 500 mg calcium (1,250 mg) tablet,chewable 1,000 mg PO Q6H PRN (Reason: indigestion) Xifaxan 550 mg tablet 550 mg PO BID lactulose 20 gram/30 mL solution 30 ml PO QID lidocaine [Aspercreme (lidocaine)] 4 % adhesive patch,medicated 1 patch topical Q12H PRN (Reason: pain) Patient Comments: right shoulder Rx Instructions: may leave on for up to 12 hrs polyethylene glycol 3350 [Miralax] 17 gram powder in packet 17 g PO DAILY PRN (Reason: constipation) ondansetron 4 mg tablet,disintegrating 4 mg PO Q4H PRN (Reason: nausea and vomiting) Rx Instructions: give 1st dose 30min before emetogenic chemo Referrals: [facility] [Primary Care Provider] - 1 week
[2023-04-14 20:00] LABS: Hemoglobin 13.1 g/dL (12.0-16.0); Red Blood Count 3.83 10^6/uL (4.20-5.40)
[2023-04-14 20:01] LABS: Basophils Percent Auto 0.8 % (0.2-2.0); Eosinophils Absolute Auto 0.3 10^3/uL (0.0-0.7); Eosinophils Percent Auto 5.6 % (0.9-7.0); Hematocrit 38.8 % (36.0-48.0); Immature Granulocytes Pct Auto 0.4 % (0.0-0.5); Lymphocytes Absolute Auto 1.4 10^3/uL (1.2-3.8); Lymphocytes Percent Auto 27.3 % (20.5-60.0); Mean Corpuscular HGB Conc 33.8 g/dL (29.9-35.2); Mean Corpuscular Hemoglobin 34.2 pg (26.7-34.0); Mean Corpuscular Volume 101.3 fL (81.0-99.0); Mean Platelet Volume 11.4 fL (9.5-13.5); Monocytes Absolute Auto 0.4 10^3/uL (0.3-0.8); Neutrophils Percent Auto 58.9 % (43.0-75.0); Platelet Count 60 10^3/uL (150-450); Red Cell Distribution Width 13.8 % (11.0-15.0)
[2023-04-14 20:02] LABS: Immature Granulocytes Abs Auto 0.02 10^3/uL (0.00-0.03)
[2023-04-14] MEDS: 0.9 % SODIUM CHLORIDE 1,000 ML 100 ML IV (20:08)
[2023-04-14] MEDS: FENTANYL CITRATE/PF 100 MCG/2 ML VIAL 50 MCG IV ×2 (20:08→21:15)
[2023-04-14 20:13] LABS: INR 1.34; Partial Thromboplastin Time 32.2 sec (22.3-36.2)
[2023-04-14 20:15] LABS: Alanine Aminotransferase 26 U/L (14-59); Albumin Globulin Ratio 1.2; Albumin Level 3.1 g/dL (3.4-5.0); Alkaline Phosphatase 121 U/L (46-116); Anion Gap 20.3; Aspartate Amino Transferase 33 U/L (15-37); BUN Creatinine Ratio 19.1; Bilirubin Total 2.2 mg/dL (0.2-1.0); Calcium 8.9 mg/dL (8.5-10.1); Chloride 106 mmol/L (98-107); Estimated GFR (African America >60 (>=60); Estimated GFR (Non-African Ame >60 (>=60); Globulin 2.6 g/dL; Glucose 151 mg/dL (74-106); Potassium 4.3 mmol/L (3.5-5.1); Sodium 142 mmol/L (136-145); Total Protein 5.7 g/dL (6.4-8.2)
[2023-04-15 00:22] VITALS: O2SAT 95
[2023-04-15 00:48] LABS: Glucometer 137 mg/dL (74-106)
[2023-04-15] MEDS: FENTANYL CITRATE/PF 100 MCG/2 ML VIAL 50 MCG IV (01:21)
== END 2023-04-15 01:41 | disposition short-term general hospital (02) ==
PROVIDERS: Personal Emergency Response Attendant; Emergency Provider Internal Medicine; PCP Family Medicine
DX: S72.141A Displaced intertrochanteric fracture of right femur, initial encounter for closed fracture (principal); S09.8XXA Other specified injuries of head, initial encounter; D69.6 Thrombocytopenia, unspecified; K74.60 Unspecified cirrhosis of liver; I95.89 Other hypotension; W19.XXXA Unspecified fall, initial encounter; F32.A Depression, unspecified; J44.9 Chronic obstructive pulmonary disease, unspecified; E53.9 Vitamin B deficiency, unspecified; M81.0 Age-related osteoporosis without current pathological fracture; I11.0 Hypertensive heart disease with heart failure; I50.9 Heart failure, unspecified; E55.9 Vitamin D deficiency, unspecified; K72.90 Hepatic failure, unspecified without coma; D68.9 Coagulation defect, unspecified; Z79.899 Other long term (current) drug therapy; Z79.4 Long term (current) use of insulin; Z79.84 Long term (current) use of oral hypoglycemic drugs
CPT/HCPCS: 36415; 36416; 51702; 70450; 71045; 72125; 73502; 80053; 85025; 85610; 85730; 93005; 96361; 96374; 96376; 99285; J3010

== ENCOUNTER 2023-07-06 09:48 | Outpatient (OUT) | payer MEDICARE, MEDICAID, SELFPAY ==
--- NOTE | 2023-07-06 10:00 | CA_ITS ---
Patient Name: ORVILLE JASSO MR#: [id number] : 1955 Exam Date: 07/06/2023 Ordering Doctor: SHRUTHI AQUINO CNP ECHOCARDIOGRAM REPORT PROCEDURE: CA ECHO DOPPLER COMPLETE INDICATIONS: Congestive heart failure, diabetes COMPARISON: None. DESCRIPTION: COMPLETE ECHOCARDIOGRAM Real-time transthoracic echocardiography with 2D, M-mode, spectral and color flow Doppler performed. QUALITY: Technical quality was good. 65 . 103#, BSA 1.49 m2, BP 106/64 LEFT VENTRICLE: Normal chamber size. Normal left ventricular wall thickness. Normal systolic function. LV EF: Normal left ventricular ejection fraction, (>55%). DIASTOLIC: Diastolic dysfunction is indeterminate. ATRIAL SEPTUM: Visually appears intact. LEFT ATRIUM: Moderate dilatation. RIGHT ATRIUM: Moderate dilatation. RIGHT VENTRICLE: Moderate dilatation. Normal right ventricular systolic function. TRICUSPID VALVE: Normal mobility and thickness. No stenosis with mild regurgitation. Doppler studies reveal severely (>60) elevated right sided pressures. RVSP 74 mmHg MITRAL VALVE: Mildly thickened with normal mobility. No evidence of mitral valve stenosis. Mild mitral annular calcification. Trivial mitral regurgitation. AORTIC VALVE: Normal trileaflet appearance. No visible sclerosis. Normal leaflet mobility. No evidence of aortic valve stenosis. No aortic regurgitation. AORTIC ROOT: Normal diameter and appearance. PULMONIC VALVE: Normal thickness and mobility. No stenosis. No regurgitation. PERICARDIUM: No evidence of pericardial effusion. IVC: IVC is dilated (2.5 cm) with no collapse. PLEURA: CONCLUSION: 1. Normal left ventricular size and systolic function. LVEF is 60%. 2. Moderately dilated right ventricle with normal systolic function. 3. Moderate biatrial dilatation. 4. Mild tricuspid regurgitation. 5. Severely elevated right sided pressures. RVSP is 74 mmHg. Adult Echocardiography Procedure Report Left Ventricle LVEDD (3.7 - 5.6 cm): 4.85 cm LVESD (2.2 - 4.0 cm): 2.90 cm LVIVS thickness (0.6 - 1.2 cm): 0.90 cm LVPW thickness (0.5 - 1.0 cm): 0.72 cm e': 0.15 m/s E - e': 4.31 LVOT Max Gradient: 4.31 mm[Hg], 4.59 mm[Hg] Peak Velocity (LVOT): 1.04 m/s, 1.07 m/s LVOT Diameter 2.15 cm Left Atrium LA Volume Index (2D A2C): 43.50 ml/m2 Left Atrium Systolic Dimension: 3.09 cm Mitral Valve MV E to A Ratio: 1.03, 0.92 Mitral Valve A-Wave Peak Velocity: 0.66 m/s Right Ventricle Aorta AO Root Diam: 3.36 cm Aortic Valve AoV Area (Peak Jack): 2.58 cm2, 2.50 cm2 AoV Area (VTI): 2.40 cm2, 2.40 cm2 Peak Velocity(Antegrade Flow): 1.50 m/s Peak Gradient(Antegrade Flow): 9.04 mm[Hg] Mean Velocity(Antegrade Flow): 1.03 m/s Mean Gradient(Antegrade Flow): 4.91 mm[Hg] Velocity Time Integral: 34.25 cm Tricuspid Valve Peak Velocity (Regurgitant Flow): 3.62 m/s, 3.84 m/s Pulmonic Valve Peak Gradient: 4.89 mm[Hg], 5.78 mm[Hg] Right Atrium Right Atrium Systolic Pressure: 42.46 ml, 42.46 ml Dictated by: Reji Gaona M.D. on 07/06/2023 at 16:52 Approved by: Reji Gaona M.D. on 07/06/2023 at 16:58
== END 2023-07-06 09:49 | disposition home or self-care (01) ==
LOC: CARD 09:49
PROVIDERS: PCP Family Medicine; Visit Provider Nurse Practitioner Family
DX: I50.41 Acute combined systolic (congestive) and diastolic (congestive) heart failure (principal)
CPT/HCPCS: 93306

== ENCOUNTER 2023-10-13 07:47 | Outpatient (OUT) | payer MEDICARE, MEDICAID, SELFPAY ==
--- NOTE | 2023-10-13 08:00 | CA_ITS ---
Patient Name: ORVILLE JASSO MR#: [id number] : 1955 Exam Date: 10/13/2023 Ordering Doctor: SHRUTHI AQUINO CNP ECHOCARDIOGRAM REPORT: PROCEDURE: CA ECHO LIMITED INDICATIONS: Pulmonary hypertension COMPARISON: None. DESCRIPTION: Limited ECHOCARDIOGRAM Real-time transthoracic echocardiography with 2D and M-mode performed. QUALITY: Technical quality was good. Limited echocardiogram per physician order. LEFT VENTRICLE: Normal chamber size. Proximal septal hypertrophy (sigmoid septum). Normal systolic function. LV EF: Normal left ventricular ejection fraction, (65%). DIASTOLIC: ATRIAL SEPTUM: LEFT ATRIUM: Mild chamber dilatation. RIGHT ATRIUM: Mild chamber dilatation. RIGHT VENTRICLE: Moderately dilated. Mildly reduced systolic function. TRICUSPID VALVE: Normal mobility and thickness. mild regurgitation. Doppler studies reveal severely (>60) elevated right sided pressures. RVSP 81 mmHg MITRAL VALVE: Mildly thickened with normal mobility. AORTIC VALVE: Normal trileaflet appearance. No visible sclerosis. Normal leaflet mobility. AORTIC ROOT: Normal diameter and appearance. PULMONIC VALVE: Normal thickness and mobility. PERICARDIUM: No evidence of pericardial effusion. IVC: IVC is normal in size, does not fully collapse. PLEURA: CONCLUSION: 1. Left ventricle is normal in size and exhibits normal systolic function. LVEF is 65%. 2. Right ventricle is moderately dilated with mildly reduced systolic function. 3. Severely elevated right-sided pressures. 4. RVSP is 81 mmHg. 5. Mild tricuspid regurgitation. 6. No pericardial effusion. Adult Echocardiography Procedure Report Left Ventricle LVEDD (3.7 - 5.6 cm): 4.43 cm LVESD (2.2 - 4.0 cm): 3.47 cm LVIVS thickness (0.6 - 1.2 cm): 1.49 cm LVPW thickness (0.5 - 1.0 cm): 0.84 cm LVOT Diameter 2.27 cm Left Atrium LA Volume Index (2D A2C): 35.24 ml/m2 Left Atrium Systolic Dimension: 3.43 cm Mitral Valve Right Ventricle Aorta AO Root Diam: 3.51 cm Aortic Valve Tricuspid Valve Peak Velocity (Regurgitant Flow): 4.27 m/s, 3.91 m/s Pulmonic Valve Right Atrium Right Atrium Systolic Pressure: 28.05 ml, 28.05 ml Dictated by: Reji Goana M.D. on 10/13/2023 at 13:01 Approved by: Reji Gaona M.D. on 10/13/2023 at 13:04
== END 2023-10-13 07:48 | disposition home or self-care (01) ==
LOC: CARD 07:47
PROVIDERS: PCP Family Medicine; Visit Provider Nurse Practitioner Family
DX: I27.20 Pulmonary hypertension, unspecified (principal); I07.1 Rheumatic tricuspid insufficiency
CPT/HCPCS: 93308

== ENCOUNTER 2023-11-02 09:54 | Observation (INO) | payer MEDICARE, MEDICAID, SELFPAY ==
[2023-11-02] VITALS (8 sets, daily range): BP systolic 126–155; BP diastolic 61–87; PULSE 78–117; TEMP 36.2–36.8; O2SAT 88–97; BMI 18.3; BMI 19.1
--- NOTE | 2023-11-02 10:21 | XR_ITS ---
[address] [address] Patient Name: ORVILLE JASSO MRN: [id number] date: 1955 Sex: F Assigned Patient Location: ER Current Patient Location: ER Accession/Order Number: [id number] Exam Date: 11/02/2023 10:45 Report Date: 11/02/2023 11:15 At the request of: KINDRA JENSEN Procedure: XR knee EVARISTO 2V EXAMINATION: XR knee EVARISTO 2V HISTORY: pain, fall COMPARISON: No relevant comparison available. FINDINGS: RIGHT FINDINGS: BONES: Mildly displaced acute fractures of the medial and lateral tibial plateau with extension into the articular surface. Nondisplaced fracture of proximal fibula at the metaphysis. Joint space narrowing compatible with degenerative changes. SOFT TISSUES: Joint effusion, possibly hemarthrosis. OTHER: Negative. LEFT FINDINGS: BONES: Acute fracture of the medial and lateral tibial plateau with impaction of the trabecula deep to the medial plateau and slight displacement at the outer margin. Nondisplaced fracture lines within the lateral plateau. Joint space narrowing. No visible fracture of the fibula. SOFT TISSUES: Joint effusion, possibly hemarthrosis. OTHER: Negative. XR/XR knee EVARISTO 2V IMPRESSION: RIGHT CONCLUSION: Acute fractures of the medial and lateral tibial plateaus and joint effusion/hemarthrosis. LEFT CONCLUSION: Acute fractures of the medial and lateral tibial plateaus and joint effusion/hemarthrosis. Electronically authenticated by: RORY RUEDA Date: 11/02/2023 11:15
--- NOTE | 2023-11-02 10:21 | CT_ITS ---
[address] [address] Patient Name: ORVILLE JASSO MRN: [id number] date: 1955 Sex: F Assigned Patient Location: ER Current Patient Location: ER Accession/Order Number: [id number] Exam Date: 11/02/2023 10:45 Report Date: 11/02/2023 11:40 At the request of: KINDRA JENSEN Procedure: CT chest wo con EXAMINATION: CT abdomen pelvis wo con, CT chest wo con HISTORY: fall, pain COMPARISON: CTA chest 10/17/2019 TECHNIQUE: Axial, Coronal, and Sagittal CT images were obtained without and/or with IV contrast as indicated by examination type. Dose reduction techniques were achieved by using automated exposure control and/or adjustment of mA and/or kV according to patient size and/or use of iterative reconstruction technique. FINDINGS: LUNGS: Moderate emphysematous changes. Stable thick curvilinear opacities within lingula favoring scarring. PLEURA: No mass or effusion. VASCULATURE: No visible pulmonary arterial thrombus or attenuation. KELSIE: No mass or adenopathy. MEDIASTINUM: No mass or adenopathy. CARDIAC: No enlargement, pericardial thickening, or pericardial effusion. AORTA: No aneurysm or dissection.. CORONARY ARTERY CALCIFICATIONS: Coronary calcifications are absent. CHEST WALL: No mass or axillary adenopathy. LIVER: No enlargement, atrophy, abnormal density, or significant focal lesion. BILIARY: Several large stones within noninflamed gallbladder. PANCREAS: No lesion, fluid collection, ductal dilatation, or atrophy. SPLEEN: No enlargement or focal lesion. ADRENALS: No mass or enlargement. KIDNEYS: No mass, obstruction, or calcification. BOWEL/MESENTERY: Prior small bowel resection and anastomosis within lower left pelvis. No visible mass, obstruction, or bowel wall thickening. AORTA/VASCULAR: No aneurysm. RETROPERITONEUM: No mass or adenopathy. LYMPH NODES: No adenopathy. URINARY BLADDER: No visible focal wall thickening, lesion, or calculus. PELVIC ORGANS: No visible mass. Pelvic organs appropriate for patient age. ABDOMINAL WALL: No mass or hernia. BONES: No acute bone abnormality. Moderate degenerative changes of lumbar spine. Prior repair of bilateral femurs. OTHER: Negative. CT/CT chest wo con IMPRESSION: 1. No acute solid or hollow organ injury of the chest, abdomen, pelvis. 2. Cholelithiasis. 3. No acute fracture. Electronically authenticated by: RORY RUEDA Date: 11/02/2023 11:40
--- NOTE | 2023-11-02 10:21 | CT_ITS ---
[address] [address] Patient Name: ORVILLE JASSO MRN: [id number] date: 1955 Sex: F Assigned Patient Location: ER Current Patient Location: ER Accession/Order Number: [id number] Exam Date: 11/02/2023 10:45 Report Date: 11/02/2023 11:40 At the request of: KINDRA JENSEN Procedure: CT abdomen pelvis wo con EXAMINATION: CT abdomen pelvis wo con, CT chest wo con HISTORY: fall, pain COMPARISON: CTA chest 10/17/2019 TECHNIQUE: Axial, Coronal, and Sagittal CT images were obtained without and/or with IV contrast as indicated by examination type. Dose reduction techniques were achieved by using automated exposure control and/or adjustment of mA and/or kV according to patient size and/or use of iterative reconstruction technique. FINDINGS: LUNGS: Moderate emphysematous changes. Stable thick curvilinear opacities within lingula favoring scarring. PLEURA: No mass or effusion. VASCULATURE: No visible pulmonary arterial thrombus or attenuation. KELSIE: No mass or adenopathy. MEDIASTINUM: No mass or adenopathy. CARDIAC: No enlargement, pericardial thickening, or pericardial effusion. AORTA: No aneurysm or dissection.. CORONARY ARTERY CALCIFICATIONS: Coronary calcifications are absent. CHEST WALL: No mass or axillary adenopathy. LIVER: No enlargement, atrophy, abnormal density, or significant focal lesion. BILIARY: Several large stones within noninflamed gallbladder. PANCREAS: No lesion, fluid collection, ductal dilatation, or atrophy. SPLEEN: No enlargement or focal lesion. ADRENALS: No mass or enlargement. KIDNEYS: No mass, obstruction, or calcification. BOWEL/MESENTERY: Prior small bowel resection and anastomosis within lower left pelvis. No visible mass, obstruction, or bowel wall thickening. AORTA/VASCULAR: No aneurysm. RETROPERITONEUM: No mass or adenopathy. LYMPH NODES: No adenopathy. URINARY BLADDER: No visible focal wall thickening, lesion, or calculus. PELVIC ORGANS: No visible mass. Pelvic organs appropriate for patient age. ABDOMINAL WALL: No mass or hernia. BONES: No acute bone abnormality. Moderate degenerative changes of lumbar spine. Prior repair of bilateral femurs. OTHER: Negative. CT/CT abdomen pelvis wo con IMPRESSION: 1. No acute solid or hollow organ injury of the chest, abdomen, pelvis. 2. Cholelithiasis. 3. No acute fracture. Electronically authenticated by: RORY RUEDA Date: 11/02/2023 11:40
--- NOTE | 2023-11-02 10:21 | CT_ITS ---
The [address] [address] Patient Name: ORVILLE JASSO MRN: [id number] date: 1955 Sex: F Assigned Patient Location: ER Current Patient Location: ER Accession/Order Number: [id number] Exam Date: 11/02/2023 10:45 Report Date: 11/02/2023 11:44 At the request of: KINDRA JENSEN Procedure: CT cervical spine wo con EXAMINATION: CT cervical spine wo con HISTORY: fall, pain COMPARISON: CT cervical spine 04/14/2023 TECHNIQUE: Axial, Coronal, and Sagittal images were created without IV contrast. Dose reduction techniques were achieved by using automated exposure control and/or adjustment of mA and/or kV according to patient size and/or use of iterative reconstruction technique. FINDINGS: VERTEBRAL BODIES: Reversal normal lordotic curvature. Grade 1 bordering on grade 2 anterolisthesis of C3 on 4. No compression fracture. FACET JOINTS: Multilevel marked degenerative facet arthropathy resulting in bone encroachment on the neural foramen. No disruption or abnormal widening. DISCS: Marked narrowing C3-4. Moderate narrowing C6-7. Mild narrowing C5-6. Posterior disc osteophyte complexes causing moderate foramen and central canal narrowing. CENTRAL CANAL: No evidence of hemorrhage. PARASPINAL AREA: No visible mass. CT/CT cervical spine wo con IMPRESSION: 1. No appreciable acute abnormality or significant change compared to prior study. 2. Marked degenerative changes detailed above. Electronically authenticated by: RORY RUEDA Date: 11/02/2023 11:44
--- NOTE | 2023-11-02 10:21 | CT_ITS ---
The [address] [address] Patient Name: ORVILLE JASSO MRN: [id number] date: 1955 Sex: F Assigned Patient Location: ER Current Patient Location: ER Accession/Order Number: [id number] Exam Date: 11/02/2023 10:45 Report Date: 11/02/2023 11:18 At the request of: KINDRA JENSEN Procedure: CT head/brain wo con EXAMINATION: CT head/brain wo con HISTORY: fall, pain COMPARISON: CT head 04/14/2023 TECHNIQUE: Axial CT images were obtained without IV contrast. Dose reduction techniques were achieved by using automated exposure control and/or adjustment of mA and/or kV according to patient size and/or use of iterative reconstruction technique. FINDINGS: BRAIN: No edema, hemorrhage, mass, acute infarction, or inappropriate atrophy. CSF SPACES: No hydrocephalus, subarachnoid hemorrhage, or mass. Appropriate for age. SKULL: No fracture, mass, or other significant visible lesion. SINUSES: No significant mucosal thickening or fluid on the limited views. ORBITS: No appreciable abnormality on the limited views. OTHER: Negative CT/CT head/brain wo con IMPRESSION: 1. No intracranial hemorrhage or appreciable acute abnormality. 2. Age consistent chronic changes. 3. No fracture of the calvarium or scalp hematoma. Electronically authenticated by: RORY RUEDA Date: 11/02/2023 11:18
[2023-11-02] MEDS: ONDANSETRON PF 4 MG/2 ML VIAL IV (10:37)
[2023-11-02] MEDS: MORPHINE SULFATE 4 MG/ML VIAL IV (10:37)
[2023-11-02 10:43] LABS: Basophils Percent Auto 0.7 % (0.2-2.0); Eosinophils Absolute Auto 0.1 10^3/uL (0.0-0.7); Eosinophils Percent Auto 2.3 % (0.9-7.0); Hemoglobin 13.3 g/dL (12.0-16.0); Immature Granulocytes Abs Auto 0.03 10^3/uL (0.00-0.03); Immature Granulocytes Pct Auto 0.7 % (0.0-0.5); Mean Corpuscular HGB Conc 32.4 g/dL (29.9-35.2); Mean Corpuscular Hemoglobin 33.8 pg (26.7-34.0); Mean Corpuscular Volume 104.1 fL (81.0-99.0); Mean Platelet Volume 11.8 fL (9.5-13.5); Monocytes Absolute Auto 0.5 10^3/uL (0.3-0.8); Monocytes Percent Auto 11.9 % (1.7-12.0); Neutrophils Absolute Auto 2.6 10^3/uL (1.4-6.5); Neutrophils Percent Auto 61.4 % (43.0-75.0); Platelet Count 66 10^3/uL (150-450); Red Blood Count 3.94 10^6/uL (4.20-5.40); Red Cell Distribution Width 15.8 % (11.0-15.0); White Blood Count 4.3 10^3/uL (4.0-11.0)
[2023-11-02 10:59] LABS: Anion Gap 14.6; BUN Creatinine Ratio 22.2; Carbon Dioxide 25.3 mmol/L (21.0-32.0); Chloride 108 mmol/L (98-107); Estimated GFR (African America >60 (>=60); Estimated GFR (Non-African Ame >60 (>=60); Glucose 204 mg/dL (74-106); Potassium 3.9 mmol/L (3.5-5.1); Sodium 144 mmol/L (136-145)
[2023-11-02 11:07] LABS: INR 1.24; Prothrombin Time 12.9 sec (9.0-11.6)
[2023-11-02] MEDS: LORAZEPAM 2 MG/ML VIAL 0.5 MG IV (12:55)
--- NOTE | 2023-11-02 13:26 | ED.GENADUL1 ---
HPI HPI - General Adult General Chief complaint: Extremity Injury, Lower Stated complaint: FALL Time Seen by Provider: 11/02/23 10:02 Source: patient Mode of arrival: ambulance Limitations: no limitations History of Present Illness HPI narrative: 68-year-old female to the emergency department with chief complaint of fall. Patient reports that she was in her wheelchair trying to stand up and fell forward onto her knees. She is unsure if she hit her head. She did not lose consciousness. She reports she has pain all over . Patient reports pain in her ribs, her back, her abdomen, her ribs, her knees. Unclear what is chronic and what is new today. Chart review shows she is DNR comfort care. She is not on blood thinners. Related Data Home Medications ?Medication ?Instructions ?Recorded ?Confirmed acetaminophen 325 mg capsule 650 mg PO Q6H PRN fever or pain 04/14/23 04/14/23 albuterol sulfate 90 mcg/actuation 2 puff inhalation Q4H PRN 04/14/23 04/14/23 aerosol inhaler shortness of breath or wheezing benzonatate 100 mg capsule 100 mg PO Q8H PRN cough 04/14/23 04/14/23 calcium carbonate (Calcium 500) 1,000 mg PO Q6H PRN indigestion 04/14/23 04/14/23 celecoxib 100 mg capsule (Celebrex) 100 mg PO Q12H PRN pain 04/14/23 04/14/23 dapagliflozin propanediol 10 mg 10 mg PO DAILY 04/14/23 04/14/23 tablet (Farxiga) dextrose 40 % oral gel (Glucose 15 g PO Q15M PRN hypoglycemia 04/14/23 04/14/23 Gel) dulaglutide 4.5 mg/0.5 mL 4.5 mg subcut QWEEK 04/14/23 04/14/23 subcutaneous pen injector (Oobafit) glucagon 1 mg/mL solution for 1 mg IM Q20M PRN hypoglycemia 04/14/23 04/14/23 injection (GlucaGen Diagnostic Kit) hydrocodone 5 mg-acetaminophen 325 1 tab PO Q6H PRN pain 04/14/23 04/14/23 mg tablet insulin glargine 100 unit/mL 13 unit subcut QPM 04/14/23 04/14/23 subcutaneous solution (Lantus U-100 Insulin) insulin lispro 100 unit/mL 1 sliding scale dose subcut 04/14/23 04/14/23 subcutaneous pen (Humalog KwikPen USEASDIRECTD (U-100) Insulin) ipratropium 0.5 mg-albuterol 3 mg 3 ml inhalation Q6H PRN shortness 04/14/23 04/14/23 (2.5 mg base)/3 mL nebulization of breath or wheezing soln lactulose 20 gram/30 mL oral 30 ml PO QID 04/14/23 04/14/23 solution lidocaine 4 % topical patch 1 patch topical Q12H PRN pain 04/14/23 04/14/23 (Aspercreme (lidocaine)) loperamide 2 mg tablet (Imodium 1 mg PO Q6H PRN loose stool 04/14/23 04/14/23 A-D) magnesium 200 mg tablet 400 mg PO DAILY 04/14/23 04/14/23 melatonin 10 mg capsule 10 mg PO QPM 04/14/23 04/14/23 metformin 500 mg tablet 500 mg PO QAM 04/14/23 04/14/23 midodrine 5 mg tablet 5 mg PO Q8H PRN hypotension 04/14/23 04/14/23 mirtazapine 30 mg tablet (Remeron) 30 mg PO QPM 04/14/23 04/14/23 ondansetron 4 mg disintegrating 4 mg PO Q4H PRN nausea and vomiting 04/14/23 04/14/23 tablet polyethylene glycol 3350 17 gram 17 g PO DAILY PRN constipation 04/14/23 04/14/23 oral powder packet (Miralax) potassium chloride 10 mEq 10 meq PO QPM 04/14/23 04/14/23 tablet,extended release potassium chloride 20 mEq 20 meq PO QAM 04/14/23 04/14/23 tablet,extended release(part/cryst) (Klor-Con M) rifaximin 550 mg tablet (Xifaxan) 550 mg PO BID 04/14/23 04/14/23 spironolactone 25 mg tablet 25 mg PO QAM 04/14/23 04/14/23 Allergies Allergy/AdvReac Type Severity Reaction Status Date / Time bupropion Allergy Severe Verified 04/14/23 19:38 ketamine Allergy Severe Verified 04/14/23 19:38 Opioid HPI Opioid Management Most Recent Opioid Data: Last Pain Scale 2 11/02/23 11:18 Last ED Pain Assessment 11/02/23 11:18 Last MAR Pain Assessment 11/02/23 10:37 Review of Systems ROS Status of ROS 10 or more systems reviewed and unremarkable except as noted in history and below [facility] Medical History (Updated 11/02/23 @ 13:56 by Ryley Robb MD) Fracture of right hip ?S72.001A - Fracture of unspecified part of neck of right femur, initial encounter for closed fracture (ICD-10) Vitamin D deficiency ?E55.9 - Vitamin D deficiency, unspecified (ICD-10) Systolic congestive heart failure ?I50.20 - Unspecified systolic (congestive) heart failure (ICD-10) Lack of coordination ?R27.9 - Unspecified lack of coordination (ICD-10) Type 2 diabetes mellitus ?E11.9 - Type 2 diabetes mellitus without complications (ICD-10) Right heart failure ?I50.810 - Right heart failure, unspecified (ICD-10) Other abnormalities of gait and mobility ?R26.89 - Other abnormalities of gait and mobility (ICD-10) Major depressive disorder ?F32.9 - Major depressive disorder, single episode, unspecified (ICD-10) Hypomagnesemia ?E83.42 - Hypomagnesemia (ICD-10) Hepatic failure ?K72.90 - Hepatic failure, unspecified without coma (ICD-10) Hypertension ?I10 - Essential (primary) hypertension (ICD-10) COPD (chronic obstructive pulmonary disease) ?J44.9 - Chronic obstructive pulmonary disease, unspecified (ICD-10) Osteoporosis ?M81.0 - Age-related osteoporosis without current pathological fracture (ICD-10) Vitamin B deficiency ?E53.9 - Vitamin B deficiency, unspecified (ICD-10) Protein calorie malnutrition ?E46 - Unspecified protein-calorie malnutrition (ICD-10) Fracture of left femur ?S72.92XA - Unspecified fracture of left femur, initial encounter for closed fracture (ICD-10) Thrombocythemia ?D75.839 - Thrombocytosis, unspecified (ICD-10) Hypoglycemia ?E16.2 - Hypoglycemia, unspecified (ICD-10) Muscle weakness ?M62.81 - Muscle weakness (generalized) (ICD-10) Iron deficiency anemia ?D50.9 - Iron deficiency anemia, unspecified (ICD-10) Hypokalemia ?E87.6 - Hypokalemia (ICD-10) Hemochromatosis ?E83.119 - Hemochromatosis, unspecified (ICD-10) Alcoholic cirrhosis of liver with ascites ?K70.31 - Alcoholic cirrhosis of liver with ascites (ICD-10) Coagulation deficiency ?D68.9 - Coagulation defect, unspecified (ICD-10) Exam Narrative Exam Narrative: Primary Survey Airway Intact Lung sounds clear and equal bilaterally Pulses full and equal to femoral, radial, and dorsalis pedis bilaterally Heart regular rate and rhythm Skin warm, dry, pink GCS 14, mildly confused Movement and sensation intact to all extremities Patient Fully Exposed. Skin tear to right forearm. abrasion to right forehead. Tenderness and decreased range of motion of bilateral knees. Secondary Survey General: GCS 14; confused HEENT: Small abrasion; Facial bones stable; Eyes normal inspection, Pupils round, 4-2mm blt; No evidence of oropharyngeal trauma; No blood in the nares or septal hematoma; Tympanic Membranes intact, no hemotympanum or drainage Neck: Normal inspection; no midline cervical tenderness; No tracheal deviation; No JVD Resp: Normal breath sounds, no wheeze or crackles; positive chest wall tenderness. no crepitus or subcutaneous emphysema; No visible evidence of chest wall trauma; Chest rise symmetric; No respiratory distress Heart: Heart rate and rhythm regular; Carotid, radial, femoral, dorsalis pedis pulses +2 and equal bilaterally; No Murmurs Abdomen: Soft; Non-tender No ecchymosis or visible wounds to abdominal wall; No distention, guarding, rigidity, or rebound; Pelvis stable, no pain on compression MSK: No range of motion of either knee, held in a flexed position, tenderness over the tibial plateaus. Tenderness to palpation of the hips. All major joints with normal ROM. No deformities. No bony tenderness. Positive tenderness without step-offs to palpation of thoracic or lumbar spine; No ecchymosis or wounds to upper or lower back Neuro: Alert and oriented; Sensation intact and symmetric bilaterally; muscle strengths symmetric bilaterally in the upper and lower extremities. Skin: Color normal; No rash; Warm; Dry Constitutional Vital Signs, click to edit/add: Last Vital Signs Temp 98.2 F 11/02/23 09:46 Pulse 87 11/02/23 12:43 Resp 18 11/02/23 12:43 BP 150/79 H 11/02/23 12:43 Pulse Ox 97 11/02/23 12:43 O2 Del Method Room Air 11/02/23 09:46 Course Vital Signs Vital signs: Vital Signs Temperature 98.2 F 11/02/23 09:46 Pulse Rate 78 11/02/23 09:46 Respiratory Rate 18 11/02/23 09:46 Blood Pressure 126/61 11/02/23 09:46 Pulse Oximetry 95 11/02/23 09:46 Oxygen Delivery Method Room Air 11/02/23 09:46 Temperature 98.2 F 11/02/23 09:46 Pulse Rate 87 11/02/23 12:43 Respiratory Rate 18 11/02/23 12:43 Blood Pressure 150/79 H 11/02/23 12:43 Pulse Oximetry 97 11/02/23 12:43 Oxygen Delivery Method Room Air 11/02/23 09:46 Medical Decision Making MDM Narrative Medical decision making narrative: 68-year-old female to the emergency department with chief complaint of accidental fall out of wheelchair. She is complaining of pain all over. Vital stable, the patient is afebrile. Morphine Zofran given for symptoms. Appropriate imaging and x-rays are ordered for her distribution of tenderness. There is small skin tear to her right forearm which does not require any repair. Dressing in place. CT head: Negative CT C-spine: Negative CT chest abdomen pelvis: Negative X-ray bilateral knees: Bilateral tibial plateau fractures Patient symptoms are difficult to control. She was placed in bilateral knee immobilizers. I discussed the case with Dr. Duran via telephone. Nonoperative management. He is happy to follow the patient in the outpatient setting. Nursing staff noted that her care facility. The patient makes her own medical decisions. They confirmed DNRCC on file. Patient will be admitted for symptom control. Medical Records Medical records reviewed: Yes I reviewed the patient's medical records Lab Data Lab results reviewed: Yes I reviewed the patient's lab results Labs: Lab Results 11/02/23 Range/Units 10:35 WBC 4.3 (4.0-11.0) 10^3/uL RBC 3.94 L (4.20-5.40) 10^6/uL Hgb 13.3 (12.0-16.0) g/dL Hct 41.0 (36.0-48.0) % MCV 104.1 H (81.0-99.0) fL MCH 33.8 (26.7-34.0) pg MCHC 32.4 (29.9-35.2) g/dL RDW 15.8 H (11.0-15.0) % Plt Count 66 L (150-450) 10^3/uL MPV 11.8 (9.5-13.5) fL Neut % (Auto) 61.4 (43.0-75.0) % Lymph % (Auto) 23.0 (20.5-60.0) % Toombs % (Auto) 11.9 (1.7-12.0) % Eos % (Auto) 2.3 (0.9-7.0) % Baso % (Auto) 0.7 (0.2-2.0) % Neut # (Auto) 2.6 (1.4-6.5) 10^3/uL Lymph # (Auto) 1.0 L (1.2-3.8) 10^3/uL Toombs # (Auto) 0.5 (0.3-0.8) 10^3/uL Eos # (Auto) 0.1 (0.0-0.7) 10^3/uL Baso # (Auto) 0.0 (0.0-0.1) 10^3/uL Abs Immat Gran (auto) 0.03 (0.00-0.03) 10^3/uL Imm/Tot Granulo (auto) 0.7 H (0.0-0.5) % PT 12.9 H (9.0-11.6) sec INR 1.24 Sodium 144 (136-145) mmol/L Potassium 3.9 (3.5-5.1) mmol/L Chloride 108 H (98-107) mmol/L Carbon Dioxide 25.3 (21.0-32.0) mmol/L Anion Gap 14.6 BUN 18.0 (7.0-18.0) mg/dL Creatinine 0.81 (0.55-1.02) mg/dL Est GFR ( Amer) >60 (>=60) Est GFR (Non-Af Amer) >60 (>=60) BUN/Creatinine Ratio 22.2 Glucose 204 H (74-106) mg/dL Calcium 9.0 (8.5-10.1) mg/dL Imaging Data CT scan - head: Attestation: I have reviewed the pertinent imaging results. Radiologist's impression: ITS Impressions Abdomen/Pelvis CT 11/02/23 10:21 IMPRESSION: 1. No acute solid or hollow organ injury of the chest, abdomen, pelvis. 2. Cholelithiasis. 3. No acute fracture. Electronically authenticated by: RORY RUEDA Date: 11/02/2023 11:[address] 11/02/23 10:21 IMPRESSION: 1. No appreciable acute abnormality or significant change compared to prior study. 2. Marked degenerative changes detailed above. Electronically authenticated by: RORY RUEDA Date: 11/02/2023 11:[address] 11/02/23 10:21 IMPRESSION: 1. No acute solid or hollow organ injury of the chest, abdomen, pelvis. 2. Cholelithiasis. 3. No acute fracture. Electronically authenticated by: RORY RUEDA Date: 11/02/2023 11:[address] 11/02/23 10:21 IMPRESSION: 1. No intracranial hemorrhage or appreciable acute abnormality. 2. Age consistent chronic changes. 3. No fracture of the calvarium or scalp hematoma. Electronically authenticated by: RORY RUEDA Date: 11/02/2023 11:18 Knee X-Ray 11/02/23 10:21 IMPRESSION: RIGHT CONCLUSION: Acute fractures of the medial and lateral tibial plateaus and joint effusion/hemarthrosis. LEFT CONCLUSION: Acute fractures of the medial and lateral tibial plateaus and joint effusion/hemarthrosis. Electronically authenticated by: RORY RUEDA Date: 11/02/2023 11:15 Discharge Plan Discharge Chief Complaint: Extremity Injury, Lower Clinical Impression: Closed fracture of tibial plateau, Closed head injury, Skin tear Patient Disposition: Admitted as Observation Time of Disposition Decision: 13:54 Condition: Good Mode of Transportation: Private Vehicle Discharge Date/Time: 11/02/23 13:26
--- NOTE | 2023-11-02 14:06 | SWNOTE1 ---
SW was going to assess pt, but she was sleeping. BUBBA sent an e-mail to Evelyn at [facility] to confirm pt was there skilled.
--- NOTE | 2023-11-02 14:11 | SWNOTE1 ---
BUBBA spoke with Evelyn at [facility]. Pt is at [facility]. If she does need rehab, she will be a precert. If she can return intermediate and is at baseline or does not want rehab then no precert required.
[2023-11-02] MEDS: KETOROLAC TROMETHAMINE 30 MG/ML VIAL 15 MG IVP (15:49)
--- NOTE | 2023-11-02 17:43 | PC.NURSE ---
Addendum entered by Isabel Snider 11/02/23 17:50: skin tear right arm Original Note:
--- NOTE | 2023-11-02 17:46 | PC.NURSE ---
Addendum entered by Isabel Snider 11/02/23 17:50: right lower extrem Original Note:
--- NOTE | 2023-11-02 17:47 | PC.NURSE ---
Addendum entered by Isabel Snider 11/02/23 17:49: left lower extrem Original Note:
[2023-11-03] MEDS: MORPHINE SULFATE 2 MG/ML SYRINGE IV ×3 (04:16→16:57)
[2023-11-03 04:40] VITALS: O2SAT 92
[2023-11-03 05:57] VITALS: BP 135/78; PULSE 107; TEMP 36.9; O2SAT 96
[2023-11-03 06:17] LABS: Basophils Percent Auto 0.4 % (0.2-2.0); Eosinophils Absolute Auto 0.1 10^3/uL (0.0-0.7); Eosinophils Percent Auto 1.3 % (0.9-7.0); Hematocrit 36.2 % (36.0-48.0); Hemoglobin 11.6 g/dL (12.0-16.0); Immature Granulocytes Abs Auto 0.03 10^3/uL (0.00-0.03); Immature Granulocytes Pct Auto 0.5 % (0.0-0.5); Lymphocytes Absolute Auto 0.6 10^3/uL (1.2-3.8); Lymphocytes Percent Auto 11.5 % (20.5-60.0); Mean Corpuscular Hemoglobin 33.9 pg (26.7-34.0); Mean Corpuscular Volume 105.8 fL (81.0-99.0); Mean Platelet Volume 11.6 fL (9.5-13.5); Monocytes Absolute Auto 0.7 10^3/uL (0.3-0.8); Monocytes Percent Auto 13.3 % (1.7-12.0); Neutrophils Absolute Auto 4.1 10^3/uL (1.4-6.5); Platelet Count 67 10^3/uL (150-450); Red Blood Count 3.42 10^6/uL (4.20-5.40); Red Cell Distribution Width 15.8 % (11.0-15.0); White Blood Count 5.6 10^3/uL (4.0-11.0)
[2023-11-03 06:29] LABS: Alanine Aminotransferase 21 U/L (14-59); Albumin Globulin Ratio 1.3; Albumin Level 2.9 g/dL (3.4-5.0); Alkaline Phosphatase 87 U/L (46-116); Aspartate Amino Transferase 25 U/L (15-37); BUN Creatinine Ratio 33.7; Bilirubin Total 4.6 mg/dL (0.2-1.0); Carbon Dioxide 24.8 mmol/L (21.0-32.0); Chloride 110 mmol/L (98-107); Estimated GFR (African America >60 (>=60); Estimated GFR (Non-African Ame >60 (>=60); Globulin 2.3 g/dL; Glucose 228 mg/dL (74-106); Potassium 4.8 mmol/L (3.5-5.1); Sodium 146 mmol/L (136-145); Total Protein 5.2 g/dL (6.4-8.2)
[2023-11-03] MEDS: OXYCODONE HCL 5 MG TABLET PO ×2 (08:01→14:42)
[2023-11-03 08:04] VITALS: BP 138/77; PULSE 105; TEMP 36.3; O2SAT 6
--- NOTE | 2023-11-03 09:05 | SWNOTE1 ---
SW reached out to Evelyn at [facility] in regards to pt's mobility. Pt mainly uses wheelchair at [facility]. Very limited mobility, 1-2 steps to transfer to wheelchair and that is her baseline. SW informed case management that is rounding with doctor.
--- NOTE | 2023-11-03 09:27 | SWNOTE1 ---
SW attempted to speak with pt. Pt did arouse somewhat to SW calling her name. Pt was not able to answer questions at this time, just moaned. SW to check back later.
--- NOTE | 2023-11-03 09:39 | PM.HP ---
HPI H&P: HPI History of Present Illness Chief complaint: FALL; TIBIAL PLATEAU FRACTURE, INTRACTABLE PAIN Narrative: HPI and Hospital Course: 68-year-old female who is a [facility] resident presented to ER last night after she fell from the wheelchair. Patient was found to have bilateral acute fractures of the medial and lateral tibial plateaus and joint effusion/hemarthrosis. ER provider discussed x-ray findings with the orthopedic surgeon on-call who recommended nonoperative care and conservative management. Patient was admitted for observation for pain control. Patient's pain was treated with combination of oral and IV narcotics. She still has considerable pain but it is slightly better. Will discharge her on oral narcotics and recommend follow-up with orthopedics as outpatient. Opioid HPI Opioid Management Most Recent Pain and Opioid Data: Last Pain Scale 2 11/02/23 11:18 Last Pain Assessment 11/03/23 07:00 Last ED Pain Assessment 11/02/23 11:18 Last MAR Pain Assessment 11/03/23 08:01 Review of Systems ROS Status of ROS 10 or more systems reviewed and unremarkable except as noted in history and below [facility] Medical History (Updated 11/03/23 @ 09:45 by Shaikh Dominick MD) Fracture of right hip ?S72.001A - Fracture of unspecified part of neck of right femur, initial encounter for closed fracture (ICD-10) Vitamin D deficiency ?E55.9 - Vitamin D deficiency, unspecified (ICD-10) Systolic congestive heart failure ?I50.20 - Unspecified systolic (congestive) heart failure (ICD-10) Lack of coordination ?R27.9 - Unspecified lack of coordination (ICD-10) Type 2 diabetes mellitus ?E11.9 - Type 2 diabetes mellitus without complications (ICD-10) Right heart failure ?I50.810 - Right heart failure, unspecified (ICD-10) Other abnormalities of gait and mobility ?R26.89 - Other abnormalities of gait and mobility (ICD-10) Major depressive disorder ?F32.9 - Major depressive disorder, single episode, unspecified (ICD-10) Hypomagnesemia ?E83.42 - Hypomagnesemia (ICD-10) Hepatic failure ?K72.90 - Hepatic failure, unspecified without coma (ICD-10) Hypertension ?I10 - Essential (primary) hypertension (ICD-10) COPD (chronic obstructive pulmonary disease) ?J44.9 - Chronic obstructive pulmonary disease, unspecified (ICD-10) Osteoporosis ?M81.0 - Age-related osteoporosis without current pathological fracture (ICD-10) Vitamin B deficiency ?E53.9 - Vitamin B deficiency, unspecified (ICD-10) Protein calorie malnutrition ?E46 - Unspecified protein-calorie malnutrition (ICD-10) Fracture of left femur ?S72.92XA - Unspecified fracture of left femur, initial encounter for closed fracture (ICD-10) Thrombocythemia ?D75.839 - Thrombocytosis, unspecified (ICD-10) Hypoglycemia ?E16.2 - Hypoglycemia, unspecified (ICD-10) Muscle weakness ?M62.81 - Muscle weakness (generalized) (ICD-10) Iron deficiency anemia ?D50.9 - Iron deficiency anemia, unspecified (ICD-10) Hypokalemia ?E87.6 - Hypokalemia (ICD-10) Hemochromatosis ?E83.119 - Hemochromatosis, unspecified (ICD-10) Alcoholic cirrhosis of liver with ascites ?K70.31 - Alcoholic cirrhosis of liver with ascites (ICD-10) Coagulation deficiency ?D68.9 - Coagulation defect, unspecified (ICD-10) Meds Home Medications and Allergies Home Medications ?Medication ?Instructions ?Recorded ?Confirmed ?Type acetaminophen 325 mg capsule 650 mg PO Q6H PRN fever or pain 04/14/23 11/02/23 History albuterol sulfate 90 mcg/actuation 2 puff inhalation Q4H PRN 04/14/23 11/02/23 History aerosol inhaler shortness of breath or wheezing benzonatate 100 mg capsule 100 mg PO Q8H PRN cough 04/14/23 11/02/23 History dapagliflozin propanediol 10 mg 10 mg PO DAILY 04/14/23 11/02/23 History tablet (Farxiga) dextrose 40 % oral gel (Glucose 15 g PO Q15M PRN hypoglycemia 04/14/23 11/02/23 History Gel) glucagon 1 mg/mL solution for 1 mg IM Q20M PRN hypoglycemia 04/14/23 11/02/23 History injection (GlucaGen Diagnostic Kit) hydrocodone 5 mg-acetaminophen 325 1 tab PO Q6H PRN pain 04/14/23 11/02/23 History mg tablet insulin glargine 100 unit/mL 19 unit subcut QAM 04/14/23 11/02/23 History subcutaneous solution (Lantus U-100 Insulin) insulin lispro 100 unit/mL 2 - 14 sliding scale dose subcut 04/14/23 11/02/23 History subcutaneous pen (Humalog KwikPen ACHS (U-100) Insulin) ipratropium 0.5 mg-albuterol 3 mg 3 ml inhalation Q6H PRN shortness 04/14/23 11/02/23 History (2.5 mg base)/3 mL nebulization of breath or wheezing soln lactulose 20 gram/30 mL oral 30 ml PO TID 04/14/23 11/02/23 History solution lidocaine 4 % topical patch 1 patch topical Q24H PRN pain 04/14/23 11/02/23 History (Aspercreme (lidocaine)) loperamide 2 mg tablet (Imodium 1 mg PO Q6H PRN loose stool 04/14/23 11/02/23 History A-D) melatonin 10 mg capsule 10 mg PO QPM 04/14/23 11/02/23 History metformin 500 mg tablet 500 mg PO QAM 04/14/23 11/02/23 History midodrine 5 mg tablet 5 mg PO Q8H PRN hypotension 04/14/23 11/02/23 History ondansetron 4 mg disintegrating 4 mg PO Q8H PRN nausea and vomiting 04/14/23 11/02/23 History tablet polyethylene glycol 3350 17 gram 17 g PO DAILY PRN constipation 04/14/23 11/02/23 History oral powder packet (Miralax) potassium chloride 10 mEq 10 meq PO QPM 04/14/23 11/02/23 History tablet,extended release potassium chloride 20 mEq 20 meq PO QAM 04/14/23 11/02/23 History tablet,extended release(part/cryst) (Klor-Con M) rifaximin 550 mg tablet (Xifaxan) 550 mg PO BID 04/14/23 11/02/23 History spironolactone 25 mg tablet 25 mg PO QAM 04/14/23 11/02/23 History ascorbic acid (vitamin C) 500 mg 500 mg PO BID 11/02/23 11/02/23 History tablet (Vitamin C) aspirin 81 mg chewable tablet 81 mg PO DAILY 11/02/23 11/02/23 History calcium carbonate (Calcium 500) 1,000 mg PO Q6H PRN dyspepsia 11/02/23 11/02/23 History cholecalciferol (vitamin D3) 50 50 mcg PO DAILY 11/02/23 11/02/23 History mcg (2,000 unit) capsule diclofenac sodium 1 % topical gel 4 g topical Q8H PRN pain 11/02/23 11/02/23 History furosemide 20 mg tablet (Lasix) 20 mg PO DAILY 11/02/23 11/02/23 History insulin glargine 100 unit/mL (3 24 unit subcut QPM 11/02/23 11/02/23 History mL) subcutaneous pen (Lantus Solostar U-100 Insulin) lidocaine HCl 2 % mucosal solution 10 ml mucous membrane Q6H PRN 11/02/23 11/02/23 History (Lidocaine Viscous) mouth pain magnesium oxide 400 mg PO DAILY 11/02/23 11/02/23 History megestrol 400 mg/10 mL (40 mg/mL) 400 mg PO DAILY 11/02/23 11/02/23 History oral suspension menthol 4 % topical gel (Biofreeze 1 applic topical Q8H PRN pain 11/02/23 11/02/23 History (menthol)) mirtazapine 15 mg tablet (Remeron) 7.5 mg PO QPM 11/02/23 11/02/23 History sodium chloride 0.65 % nasal spray 2 spray intranasal Q6H PRN dry 11/02/23 11/02/23 History aerosol ([place] Saline) nasal passages tiotropium 2.5 mcg-olodaterol 2.5 2 inh inhalation DAILY 11/02/23 11/02/23 History mcg/actuation mist for inhalation (Stiolto Respimat) Allergies Allergy/AdvReac Type Severity Reaction Status Date / Time bupropion Allergy Severe Verified 04/14/23 19:38 ketamine Allergy Severe Verified 04/14/23 19:38 Exam Constitutional Vital Signs, click to edit/add: Last Vital Signs Temp 97.3 F L 11/03/23 08:04 Pulse 105 H 11/03/23 08:04 Resp 20 11/03/23 08:04 BP 138/77 11/03/23 08:04 Pulse Ox 6 L 11/03/23 08:04 O2 Del Method Nasal Cannula 11/03/23 08:04 O2 Flow Rate 3 11/03/23 08:04 Documenting provider has reviewed patient's vital signs: yes General appearance: in distress mild, ill appearing and frail appearing Nutritional appearance: cachectic HENMT Common normals: normocephalic and head/scalp atraumatic Head and scalp: normocephalic and atraumatic Other: bitemporal wasting Eye Common normals: conjunctivae normal and no scleral icterus Conjunctiva: conjunctiva(e) normal Respiratory Common normals: normal respiratory effort and clear to auscultation bilaterally Effort & inspection: able to speak in complete sentences and decreased respiratory effort Auscultation: diminished lung sounds Cardio Common normals: regular rate, S1 normal heart sound and S2 normal heart sound Rate: regular rate Heart sounds: S1 normal and S2 normal GI Common normals: Normal to inspection, nondistended, normoactive bowel sounds present, soft to palpation, non-tender and no hepatosplenomegaly Palpation: soft and no hepatosplenomegaly Extremity Common normals: no clubbing, cyanosis or edema Other: b/l knees in brace. Neuro Common normals: moves all extremities and no focal motor deficits Psych Common normals: mental status grossly normal, denies hallucinations, denies homicidal ideation and denies suicidal ideation Results Labs Labs: Short CBC 11/02/23 11/03/23 Range/Units 10:35 05:17 WBC 4.3 5.6 (4.0-11.0) 10^3/uL Hgb 13.3 11.6 L (12.0-16.0) g/dL Hct 41.0 36.2 (36.0-48.0) % Plt Count 66 L 67 L (150-450) 10^3/uL BMP 11/02/23 11/03/23 10:35 05:17 Sodium 144 146 H Potassium 3.9 4.8 Chloride 108 H 110 H Carbon Dioxide 25.3 24.8 BUN 18.0 30.0 H Creatinine 0.81 0.89 Glucose 204 H 228 H Calcium 9.0 9.0 Liver Function 11/03/23 Range/Units 05:17 Total Bilirubin 4.6 H (0.2-1.0) mg/dL AST 25 (15-37) U/L ALT 21 (14-59) U/L Alkaline Phosphatase 87 (46-116) U/L Albumin 2.9 L (3.4-5.0) g/dL Assessment and Plan Assessment and Plan (1) Closed fracture of tibial plateau: Assessment and Plan: Nonoperative/nonsurgical as per orthopedics. Will discharge on oral narcotic as needed. Patient will need to follow-up with orthopedic as outpatient Qualifiers: Encounter type: subsequent encounter Laterality: unspecified laterality Fracture healing: with routine healing Qualified Code(s): S82.143D - Displaced bicondylar fracture of unspecified tibia, subsequent encounter for closed fracture with routine healing (2) Cirrhosis: Assessment and Plan: Continue with folic acid, lactulose or rifaximin due to her previous history of hepatic encephalopathy. Monitor Qualifiers: Hepatic cirrhosis type: other cirrhosis Qualified Code(s): K74.69 - Other cirrhosis of liver (3) Thrombocytopenia: Assessment and Plan: No evidence of active bleeding. Likely because of liver cirrhosis (4) Type 2 diabetes mellitus: Assessment and Plan: Continue with occasions. Monitor blood glucose periodically and as outpatient Qualifiers: Diabetes mellitus residential insulin use: with moth exterminator use Diabetes mellitus complication status: without complication Qualified Code(s): E11.9 - Type 2 diabetes mellitus without complications; Z79.4 - bed bug exterminator (current) use of insulin (5) COPD (chronic obstructive pulmonary disease): Assessment and Plan: Doing nebs as needed. No evidence of active bronchospasm Qualifiers: COPD type: unspecified COPD Qualified Code(s): J44.9 - Chronic obstructive pulmonary disease, unspecified (6) Protein calorie malnutrition: Assessment and Plan: Severe protein calorie malnutrition with bitemporal muscle wasting, loss of subcutaneous tissue. Patient has a BMI of 19. Looks cachectic likely because of chronic disease burden and from liver cirrhosis Qualifiers: Protein-calorie malnutrition severity: severe Qualified Code(s): E43 - Unspecified severe protein-calorie malnutrition
--- NOTE | 2023-11-03 09:42 | CM.NOTE ---
Rounds made with Dr. Tan. Dr. Tan explains plan of care and asks Hetal questions. Hetal answers some questions. Plan to return to [facility] today.
--- NOTE | 2023-11-03 10:26 | SWNOTE1 ---
Pt will be discharged back to [facility] today half-way. BUBBA sent over dc med rec, H&P, vitals, labs, and nursing notes to Evelyn at [facility]. BUBBA working on transport.
--- NOTE | 2023-11-03 10:36 | SWNOTE1 ---
BUBBA spoke with [facility] and the earliest they can transport is 5:00, SW went ahead and set it up for 5:00. BUBBA notified nursing and [place] of time. BUBBA will attempt [facility], but yesterday they had no availability.
[2023-11-03] MEDS: CANAGLIFLOZIN 100 MG TABLET PO (10:39)
[2023-11-03] MEDS: RIFAXIMIN 550 MG TABLET PO (10:39)
[2023-11-03] MEDS: LACTULOSE 10 GM/15 ML UD CUP 30 GM PO (10:39)
[2023-11-03] MEDS: ACETAMINOPHEN 325 MG TABLET 650 MG PO (10:52)
[2023-11-03 11:29] VITALS: O2SAT 96
[2023-11-03 13:35] VITALS: BP 115/68; PULSE 105; TEMP 36.5; O2SAT 87
--- NOTE | 2023-11-03 13:55 | SWNOTE1 ---
SW attempted to call friend listed, but no answer. SW not able to complete THOMAS form with pt as she is not alert and oriented x3 at this time and pt's contact not answering phone.
--- NOTE | 2023-11-03 16:46 | DIETREC ---
Recommend 237 mL Ensure Original BID and 30 mL PRO-stat BID.
--- NOTE | 2023-11-03 16:46 | PC.NURSE ---
rn attempted to give report x2 and phone just would ring and ring, no answer.
== END 2023-11-03 17:24 ==
LOC: ER 13:09 → MS 13:32
PROVIDERS: Admitting Provider Internal Medicine; Emergency Provider Student in an Organized Health Care Education/Training Program; PCP Family Medicine; Visit Provider Internal Medicine
DX: S82.142A Displaced bicondylar fracture of left tibia, initial encounter for closed fracture (principal); S82.141A Displaced bicondylar fracture of right tibia, initial encounter for closed fracture; K74.69 Other cirrhosis of liver; E11.9 Type 2 diabetes mellitus without complications; J44.9 Chronic obstructive pulmonary disease, unspecified; E43 Unspecified severe protein-calorie malnutrition; Z68.1 Body mass index [BMI] 19.9 or less, adult; R64 Cachexia; S09.8XXA Other specified injuries of head, initial encounter; S51.811A Laceration without foreign body of right forearm, initial encounter; Z79.4 Long term (current) use of insulin; Z66 Do not resuscitate; W05.0XXA Fall from non-moving wheelchair, initial encounter
CPT/HCPCS: 36415; 70450; 71250; 72125; 73560; 74176; 80048; 80053; 82948; 85025; 85610; 94761; 96374; 96375; 96376; 99285; G0378; J1885; J2060; J2270; J2405